=== PATIENT | female | born 1980 | race Caucasian/White ===

== ENCOUNTER → 2019-04-15 | Outpatient (CLI) | payer OTHER, SELFPAY ==
[2015-05-25 11:29] VITALS: BMI 32.5
== END | disposition home or self-care (01) ==
LOC: MFPLAB 15:33
PROVIDERS: Family Provider Family Medicine; PCP Family Medicine; Referring Provider Family Medicine; Visit Provider Family Medicine
DX: F41.9 Anxiety disorder, unspecified (principal)
CPT/HCPCS: 36415; 84443

== ENCOUNTER → 2019-04-19 | Outpatient (CLI) | payer OTHER, SELFPAY ==
[2019-04-19 15:32] LABS: T4 Free Direct 0.79 ng/dL (0.76-1.46)
[2019-04-26 10:01] LABS: Anti-Thyroglobulin AB 3.5 IU/mL (0.0-0.9); Thyroglobulin RIA 3.9 ng/mL (.); Thyroid Peroxidase AB 13 IU/mL (0-34)
== END | disposition home or self-care (01) ==
LOC: MFPLAB 13:35
PROVIDERS: Family Provider Family Medicine; PCP Family Medicine; Referring Provider Family Medicine; Visit Provider Family Medicine
DX: R79.89 Other specified abnormal findings of blood chemistry (principal)
CPT/HCPCS: 36415; 84432; 84439; 86376; 86800

== ENCOUNTER → 2019-10-01 13:45 | Outpatient (CLI) | payer OTHER, SELFPAY ==
[2019-10-01 16:30] LABS: T4 Free Direct 0.76 ng/dL (0.76-1.46); Thyroid Stim Hormone (TSH) 5.13 uIU/mL (0.358-3.74)
[2019-10-11 13:24] LABS: Anti-Thyroglobulin AB 2.3 IU/mL (0.0-0.9); Thyroglobulin RIA 11 ng/mL (.); Thyroid Peroxidase AB < 9 IU/mL (0-34)
== END ==
LOC: MFPLAB 13:46
PROVIDERS: PCP Family Medicine; Referring Provider Family Medicine; Visit Provider Family Medicine
DX: R79.89 Other specified abnormal findings of blood chemistry (principal)
CPT/HCPCS: 36415; 84432; 84439; 84443; 86376; 86800

== ENCOUNTER 2021-05-26 11:00 | Emergency (ER) | payer OTHER, SELFPAY ==
[2021-05-26 11:01] VITALS: BP 130/100; PULSE 91; RESP 18; TEMP 36.3; O2SAT 95; BMI 27.6
--- NOTE | 2021-05-26 11:31 | CT_ITS ---
STUDY: CT ABDOMEN AND PELVIS WITHOUT CONTRAST REASON FOR EXAM: Female, 40 years old. Pain RADIATION DOSAGE (If Supplied By Facility): CTDIvol = ( 10.99 ) mGy, DLP = ( 521.55 ) mGycm TECHNIQUE: Transaxial images were obtained from the dome of the diaphragm to the symphysis pubis without oral contrast, and without intravenous contrast. Sagittal and coronal images were reconstructed. Individualized dose optimization techniques were used for this CT. COMPARISON: None. FINDINGS: The lung bases demonstrate no consolidative process. No pericardial effusion. Small hiatal hernia. Hepatic steatosis. Pancreas and adrenal glands appear unremarkable. Gallbladder slightly distended. Spleen appears unremarkable. No free intraperitoneal air. No drainable fluid collections. Nonobstructive bowel gas pattern. Normal appendix. Septated cystic appearing structure in the right ovary measuring up to 5.4 cm possibly an ovarian cyst which can be assessed with follow-up sonography. Fecal loading of colonic loops in the rectum. Kidneys demonstrate no evidence for hydronephrosis Left-sided sacroiliac joint fixation on seen. No acute osseous abnormalities in the lumbar spine. Prior tubal ligation. Small amount of intraluminal gas in the urinary bladder IMPRESSION: No evidence for acute appendicitis, diverticulitis or bowel obstruction. Septated cystic appearing structure in the right ovary measuring up to 5.4 cm possibly an ovarian cyst which can be assessed with follow-up sonography. Electronically Signed: Homero Brewer MD at 13:28 EDT Tel , Service support , CT/Abdomen/Pelvis without Cont
--- NOTE | 2021-05-26 11:32 | EDS_ITS ---
HPI History of Present Illness Chief Complaint: General Illness Narrative Narrative: Patient presents with decreased appetite and nausea since Friday or Friday. She states that the last time that she was able to eat anything. She states that the thought of food is not appealing to her. When she does eat, she becomes nauseated. She has been able to drink fluids. She states she is starting a headache because she has not really eaten anything since 4 days ago. She denies any problems with bowel movements, last bowel movement was yesterday and normal. Last menstrual period was 1 week ago. She denies any dysuria or hematuria. No vaginal bleeding. No exacerbating or alleviating factors but she does states that she does not feel well and is unable to eat. [facility] Medical History (Updated 05/26/21 @ 14:41 by Percy Fernando MD) Anxiety Depression Memo's thyroiditis Home Medications bupropion HCl 150 mg PO BID 05/25/15 [History Last Taken 05/24/15 one] ferrous sulfate 325 mg PO DAILY 05/25/15 [History Last Taken 05/24/15 one] fluoxetine 20 mg PO DAILY 05/25/15 [History Last Taken 05/24/15 one] vit,[id number] [Prenatabs FA] 1 tab PO DAILY 05/25/15 [History Last Taken 05/24/15 one] Ibuprofen [Motrin] 800 mg PO TID PRN PRN #60 tab 05/26/15 [Rx Last Taken Unknown] docusate sodium [Colace] 100 mg PO BID PRN PRN #60 capsule 05/26/15 [Rx Last Taken Unknown] enoxaparin 40 mg SUBCUT DAILY #30 syringe 05/26/15 [Rx Last Taken Unknown] oxycodone-acetaminophen 1 - 2 tab PO Q6H PRN PRN #40 tab 05/26/15 [Rx Last Taken Unknown] famotidine [Pepcid] 20 mg PO DAILY #14 tab 05/26/21 [Rx Last Taken Unknown] ondansetron 4 mg PO Q8H PRN #10 tab 05/26/21 [Rx Last Taken Unknown] Allergy/AdvReac Type Severity Reaction Status Date / Time No Known Allergies Allergy Verified 05/26/21 11:01 Social History Smoking Status: Never smoker ROS ROS ED ROS Narrative Constitutional: No fever, no chills. Decreased appetite. HEENT: No sore throat. No neck pain. No loss of vision. No rhinorrhea. Cardiovascular: No chest pain. No palpitations. No pedal edema. Respiratory: No cough, no shortness of breath. Abdominal: No abdominal pain. Positive nausea. No vomiting. Genitourinary: No dysuria. No hematuria. No vaginal bleeding. Musculoskeletal: No myalgias. No arthralgias. Neurologic: No headaches. No dizziness. No lightheadedness. Skin: No rash. No change in color. Psychiatric: No depression. No anxiety. EXAM Physical Exam Narrative Exam Narrative: Afebrile. Vital signs noted. HEENT: Normocephalic. Atraumatic. PERRL, EOMI. Neck soft and supple. No point tenderness or step off. Cardiovascular: Regular rate and rhythm. No murmurs, rubs, or gallops appreciated. Respiratory: No tachypnea. Lungs clear to auscultation bilaterally. Gastrointestinal: Abdomen soft, nontender, with normoactive bowel sounds. No rebound or guarding. Minimal epigastric discomfort. Neurological: Awake. Alert. Nonfocal, nonlateralizing. Skin: No rash. Normal color. No pallor. Musculoskeletal: No pedal edema. Full range of motion extremities. Const Vital Signs: 05/26/21 11:01 05/26/21 12:00 05/26/21 13:21 Temperature 97.4 F L Temperature Source Temporal Pulse Rate 91 98 Respiratory Rate 18 16 Respiratory Effort Normal Respiratory Pattern Normal Blood Pressure 130/100 H 128/90 H Blood Pressure Mean 110 102 Pulse Ox 95 99 Oxygen Delivery Method Room Air MDM MDM MDM Narrative Medical decision making narrative: Comprehensive work-up was pursued. She will be bolused IV fluids and administered ondansetron. I will check a test along with CBC, CMP, and lipase. I will also obtain a CT of the abdomen pelvis. CBC shows normal white count of 8.7, hemoglobin 14.2. Serum is negative. CMP shows sodium slightly low at 133. Lipase is normal 167. CT the abdomen pelvis shows no acute process. Urinalysis is positive for nitrites but there are 0 WBCs. She is not having dysuria. I do not feel antibiotics are indicated, furthermore I think this would complicate things with her nausea. Upon repeat examination after a small amount of IV fluids, she feels improved. I do feel she may be mildly dehydrated with the lower sodium. She will be written prescriptions for ondansetron and 4 Pepcid. She was told to start a clear liquid diet and advance as tolerated and follow-up with a primary care provider. I feel she be discharged safely home with follow-up. Return instructions to the emergency department were reviewed. Disposition is discharged home in stable condition. Lab Data Attestation: I reviewed the patient's lab results. Labs: Laboratory Results - last 24 hr 05/26/21 05/26/21 05/26/21 11:50 11:50 11:50 WBC 8.7 RBC 4.78 Hgb 14.2 Hct 40.8 MCV 85.4 MCH 29.7 MCHC 34.8 RDW Std Deviation 36.9 RDW Coeff of Micheal 12.2 Plt Count 278 MPV 8.9 Immature Gran % (Auto) [employer] Neut % (Auto) [employer] Lymph % (Auto) [employer] Daniels % (Auto) [employer] Eos % (Auto) [employer] Baso % (Auto) [employer] Absolute Neuts (auto) 7.5 Absolute Lymphs (auto) 1.12 Total Counted 100 Neutrophils % (Manual) 85 H Band Neutrophils % 1 Lymphocytes % (Manual) 13 L Monocytes % (Manual) 1 Nucleated RBC % 0 Platelet Estimate ADEQUATE RBC Morphology NORM C+C Sodium 133 L Potassium 3.9 Chloride 93 L Carbon Dioxide 31.0 Anion Gap 9 BUN 7 Creatinine 1.06 H Estim Creat Clear Calc 59.53 Est GFR (MDRD) Af Amer 74 Est GFR (MDRD) Non-Af 61 BUN/Creatinine Ratio 6.6 L Glucose 96 Calcium 11.1 H Total Bilirubin 1.80 H AST 52 H ALT 51 Alkaline Phosphatase 105 Total Protein 8.0 Albumin 3.9 Globulin 4.1 Albumin/Globulin Ratio 1.0 Lipase 167 Serum , Qual NEGATIVE Urine Color Urine Clarity Urine pH Ur Specific Sheridan Urine Protein Urine Glucose (UA) Urine Ketones Urine Occult Blood Urine Nitrite Urine Bilirubin Urine Urobilinogen Ur Leukocyte Esterase Urine RBC Urine WBC Ur Squamous Epith Cells Urine Bacteria Urine Mucus 05/26/21 11:55 WBC RBC Hgb Hct MCV MCH MCHC RDW Std Deviation RDW Coeff of Micheal Plt Count MPV Immature Gran % (Auto) Neut % (Auto) Lymph % (Auto) Daniels % (Auto) Eos % (Auto) Baso % (Auto) Absolute Neuts (auto) Absolute Lymphs (auto) Total Counted Neutrophils % (Manual) Band Neutrophils % Lymphocytes % (Manual) Monocytes % (Manual) Nucleated RBC % Platelet Estimate RBC Morphology Sodium Potassium Chloride Carbon Dioxide Anion Gap BUN Creatinine Estim Creat Clear Calc Est GFR (MDRD) Af Amer Est GFR (MDRD) Non-Af BUN/Creatinine Ratio Glucose Calcium Total Bilirubin AST ALT Alkaline Phosphatase Total Protein Albumin Globulin Albumin/Globulin Ratio Lipase Serum , Qual Urine Color Yellow Urine Clarity Sl. Cloudy Urine pH 6.0 Ur Specific Sheridan 1.015 Urine Protein 30 H Urine Glucose (UA) Normal Urine Ketones 50 H Urine Occult Blood 25 H Urine Nitrite Positive H Urine Bilirubin Negative Urine Urobilinogen Normal Ur Leukocyte Esterase 25 H Urine RBC 0 SEEN Urine WBC 0 SEEN Ur Squamous Epith Cells 0 SEEN Urine Bacteria 3+ Urine Mucus 0 SEEN Radiography Diagnostic Testing: Clinical Impression(s) from Imaging Studies Abdomen/Pelvis CT 05/26/21 11:31 Discharge Plan Triage Chief Complaint: General Illness ED Provider: Precy Fernando Dx/Rx/DC Orders Clinical Impression: Nausea, Gastritis, Acute dehydration Instructions: ED Dehydration (Adult), ED PEPTIC ULCER vs GASTRITIS Prescriptions: New famotidine [Pepcid] 20 mg tablet 20 mg PO DAILY Qty: 14 RF: 0 ondansetron 4 mg tablet,disintegrating 4 mg PO Q8H PRN (Reason: nausea and vomiting) Qty: 10 RF: 0 No Action vit,[id number] [Prenatabs FA] 1 TABLET tablet 1 tab PO DAILY RF: 0 fluoxetine 20 MG capsule 20 mg PO DAILY RF: 0 bupropion HCl 100 MG tablet 150 mg PO BID RF: 0 ferrous sulfate 325 MG tablet 325 mg PO DAILY RF: 0 enoxaparin 40 MG/0.4 ML syringe 40 mg subcut DAILY Qty: 30 RF: 1 oxycodone-acetaminophen 1 TABLET tablet 1 - 2 tab PO Q6H PRN PRN (Reason: Pain) Qty: 40 RF: 0 docusate sodium [DOK] 100 MG capsule 100 mg PO BID PRN PRN (Reason: Constipation) Qty: 60 RF: 1 Ibuprofen [Motrin] 800 MG tablet 800 mg PO TID PRN PRN (Reason: Pain) Qty: 60 RF: 1 Primary Care Provider: NOT,DEFINED Referrals: NOT,DEFINED [Primary Care Provider] - Clinic,NOW [NON-STAFF] - 06/01/21 Disposition Disposition: Home, Self Care
[2021-05-26] MEDS: Ondansetron 4 MG/2 ML Vial IV (11:47)
[2021-05-26] MEDS: 0.9% Normal Saline 1,000 ML 1000 ML IV (11:47)
[2021-05-26 11:59] LABS: Basophil# 0.05 X10^3/uL; Eosinophil# 1.41 X10^3/uL; Hematocrit 40.8 % (37-47); Hemoglobin 14.2 g/dL (12.0-15.0); Mean Corp Hgb Conc 34.8 g/dL (32-36); Mean Corpuscular Hgb 29.7 pg (27.0-32.0); Mean Corpuscular Volume 85.4 fL (81-99); Mean Platelet Vol. 8.9 fl (6.2-12.0); Monocyte# 0.61 X10^3/uL; NRBC Flagged by Analyzer 0 % (0-5); POSITIVE MORPHOLOGY YES; Platelet Count 278 K/mm3 (150-450); RBC Distribution Width CV 12.2 % (11.6-14.6); RBC Distribution Width SD 36.9 fl (35.1-43.9); Red Blood Count 4.78 M/mm3 (4.2-5.4); White Blood Count 8.7 K/mm3 (4.4-11.0)
[2021-05-26 11:59] LABS: Mucous, Urine 0 SEEN /hpf (<or=2+); Red Blood Cells-Urine 0 SEEN /hpf (0-5); Squamous Epithelial Cells - UA 0 SEEN /hpf (5-10); White Blood Cells 0 SEEN /hpf (0-5)
[2021-05-26 12:01] LABS: Differential Indicated SCAN CRITERIA MET
[2021-05-26 12:04] LABS: Color, Urine Yellow (Yellow); Glucose, Dipstick Normal (Normal); Ketone-Dipstick 50 mg/dl (Negative); Leukocyte Esterase-Dipstick 25 /ul (Negative); Nitrite-Dipstick Positive (Negative); Occult Blood-Urine 25 /ul (Negative); Protein-Dipstick 30 mg/dl (Negative); Specific Gravity, Urine 1.015 (1.002-1.030); Urine Bilirubin Dipstick Negative (Negative); Urine Clarity Sl. Cloudy (Clear); Urine Urobilinogen Normal (Normal)
[2021-05-26 12:10] LABS: Bacteria 3+ /hpf (None Seen)
[2021-05-26 12:14] LABS: AST(SGOT) 52 U/L (15-37); Alanine Aminotransfer ALT/SGPT 51 U/L (13-56); Albumin, Serum 3.9 g/dL (3.2-5.0); Alkaline Phosphatase 105 U/L (45-117); Anion Gap 9 (5-15); BUN 7 mg/dL (7-18); BUN/Creat Ratio 6.6 RATIO (10-20); Calcium,Total 11.1 mg/dL (8.5-10.1); Chloride 93 mmol/L (98-107); Creatinine, Serum 1.06 mg/dL (0.55-1.02); EST Glomerular Filtration Rate 61 mL/min (>60); Est Glom Filt Rate - Afr Amer 74 mL/min (>60); Estimated Creatinine Clearance 59.53 ml/min; Globulin 4.1 g/dL (2.2-4.2); Glucose 96 mg/dL (74-106); Lipase 167 U/L (73-393); Potassium 3.9 mmol/L (3.5-5.1); Sodium Level 133 mmol/L (136-145)
[2021-05-26 12:19] LABS: Internal QC Validated? YES +Cl - CLEAR BKGD; Pregnancy, Serum, hCG Quali. NEGATIVE Negative
[2021-05-26 12:20] LABS: Lymphocyte 13 % (19-41); Monocyte 1 % (0-10); Neutrophil-Band 1 % (0-5); Neutrophil-Segmented 85 % (47-70); Total Cells Counted 100 (MANUAL DIFF)
[2021-05-26 12:21] LABS: Platelet Estimate ADEQUATE (ADEQ); Red Cell Morphology NORM C+C NORMAL (NORM C&C); Scan Smear per Review Criteria MANUAL DIFF
[2021-05-26 12:22] LABS: Absolute Lymphocyte Count 1.12 X10^3/uL (0.83-4.51); Absolute Neutrophil Count 7.5 X10^3/uL (2.0-7.7); Lymphocyte # 1.12 X10^3/ul (0.83-4.51); Neutrophil # 7.48 X10^3/uL (2.7-7.7)
[2021-05-26 13:21] VITALS: BP 128/90; PULSE 98; RESP 16; O2SAT 99
== END 2021-05-26 14:58 | disposition home or self-care (01) ==
PROVIDERS: Emergency Provider Emergency Medicine
DX: K29.70 Gastritis, unspecified, without bleeding (principal); E86.0 Dehydration
CPT/HCPCS: 74176; 80053; 81001; 83690; 84703; 85025; 96361; 96374; 99283; J7030; J2405

== ENCOUNTER 2021-07-04 17:23 | Emergency (ER) | payer OTHER, SELFPAY ==
[2021-07-04 17:24] VITALS: BP 134/60; PULSE 87; RESP 16; TEMP 36.4; O2SAT 96; BMI 27.1
--- NOTE | 2021-07-04 18:07 | EDS_ITS ---
HPI History of Present Illness Chief Complaint: General Illness Informant: patient Onset/Context/Timing Onset: Days Context: Gradual Onset Timing: Continuous Current Severity: Mild Maximum Severity: Mild Narrative Narrative: 41-year-old female history of Memo's thyroiditis. URI symptoms for 2 to 3 days. Associated nausea vomiting. Cough of greenish phlegm. Nausea and vomiting and mild diarrhea. No fever. No shortness of breath. She has not been vaccinated against Covid. Members at home have similar symptoms. Prior similar symptoms: Yes Recent Illness/Hospitalization: No PFSH PFSH Medical History Anxiety Depression Memo's thyroiditis Home Medications alprazolam 1 mg PO DAILY PRN 07/04/21 [History Last Taken Unknown] bupropion HCl 300 mg PO DAILY 07/04/21 [History Last Taken Unknown] sertraline 100 mg PO DAILY 07/04/21 [History Last Taken Unknown] Allergy/AdvReac Type Severity Reaction Status Date / Time No Known Allergies Allergy Verified 07/04/21 17:26 Social History Smoking Status: Never smoker ROS ROS ED ROS Narrative Cough, nausea, vomiting and diarrhea. Review of Systems ROS Unobtainable: Denies due to encephalopathy Constitutional Constitutional ED: Denies fever(s) Eyes Eyes: Denies change in vision ENT ENT ED: Reports sore throat; Denies ear pain Cardiovascular Cardiovascular: Denies chest pain Respiratory/Chest Respiratory/Chest: Reports cough; Denies dyspnea Gastrointestinal Gastrointestinal: Reports diarrhea, nausea and vomiting; Denies abdominal pain Genitourinary Genitourinary ED: Denies dysuria Musculoskeletal Musculoskeletal: Reports myalgias Integumentary Denies rash Neurologic Neurologic: Denies headache(s) Psychiatric Psychiatric: Denies depression Endocrine Endocrinology: Denies polyuria Allergic/Immunologic Allergic/Immunologic ED: Denies urticaria EXAM Physical Exam Narrative Exam Narrative: 11-year-old female no acute distress vital signs stable afebrile. Pulse ox 96% on room air no signs hypoxia. Patient does not look septic or toxic. HEENT exam unremarkable. Moist mucous membranes. Posterior pharynx unremarkable. No trouble swallowing or breathing. Neck nontender no lymphadenopathy. Lungs clear to auscultation bilaterally. Heart regular rhythm rate about 90 no murmur. Abdomen soft nontender normal bowel sounds no peritoneal signs. No distention or signs of obstruction. Moving all 4 extremities. Nontender no edema. Back nontender. Neurologically awake and alert with no focal motor deficits. Const Vital Signs: 07/04/21 17:24 07/04/21 18:09 Temperature 97.5 F L Temperature Source Temporal Pulse Rate 87 Respiratory Rate 16 Respiratory Effort Normal Non-Labored Respiratory Pattern Normal Blood Pressure 134/60 H Blood Pressure Mean 84 Pulse Ox 96 Oxygen Delivery Method Room Air Positive well nourished and well developed; Negative for obese, cachectic, contractures or unkempt General Appearance ED: well developed and NAD; Negative for unkempt, cachectic, contractures, cyanotic, diaphoretic or pallor Nutritional Appearance: Negative for cachectic or obese HEENT Reports moist mucous membranes Negative for trauma or tenderness Eyes PERRL and EOMs intact bilaterally General Eye ED: Negative for pale conjunctiva or scleral icterus Neck no lymphadenopathy, supple and no JVD General: Negative for tenderness Chest Wall inspection of chest normal and palpation of chest normal Resp normal respiratory effort and clear to auscultation bilaterally Effort and Inspection: Negative for pain with movement Auscultation: Negative for rales, rhonchi or wheezes Cardio regular rate, regular rhythm, S1 normal heart sound, S2 normal heart sound and no murmurs GI normal to inspection, nondistended, normoactive bowel sounds, non-tender, non- distended and no masses Inspection: Negative for abdominal distention Auscultation: normoactive bowel sounds Palpation: soft; Negative for tender, guarding or rebound tenderness present Back/Spine no CVA tenderness General Back: Negative for CVA tenderness Extremity normal to inspection General Extremety ED: Negative for edema or tenderness General Extremity: Negative for edema Neuro oriented x3 and CN's II-XII intact bilaterally Sensorium / Orientation: alert; Negative for lethargic or stuporous Motor Exam: strength 5/5 throughout Psych mental status grossly normal Appearance: Negative for unkempt Attitude: No agitated Mood & Affect: Negative for depressed, anxious or tearful Skin no rashes or lesions noted, no wounds and No skin turgor normal General Skin Exam: Negative for elasticity normal, jaundice or pallor MDM MDM MDM Narrative Medical decision making narrative: Patient with URI symptoms. Chest x-ray and Covid testing being obtained. Given IV Zofran for nausea and IV fluids. Her chest x-ray and Covid test are both negative. She will be discharged home with a viral syndrome. Zofran as needed for nausea. Repeat exam patient is doing well at 8:15 PM. Follow-up with proving return if worse. Lab Data Attestation: I reviewed the patient's lab results. Lab results narrative: Covid test is negative. Radiography Chest X-Ray - ED: 1 View, Read by ED Physician, Heart, Lungs, Mediastinum, Bony Structures and No Acute Disease Diagnostic Testing: Clinical Impression(s) from Imaging Studies Chest X-Ray 07/04/21 19:00 IMPRESSION: Normal x-ray examination of the chest. Electronically Signed: Adolfo Walters MD at 19:20 EST Tel , Service support , Chest x-ray, portable, single view interpreted by myself shows no acute abnormality. Normal cardiac silhouette, mediastinum and lung matthews. No infiltrates. Discharge Plan Triage Chief Complaint: General Illness ED Provider: Ramón Galvan Dx/Rx/DC Orders Clinical Impression: Acute viral syndrome Instructions: ED Viral Syndrome (Adult) Prescriptions: No Action alprazolam 1 mg tablet 1 mg PO DAILY PRN (Reason: Anxiety) RF: 0 sertraline 100 mg tablet 100 mg PO DAILY RF: 0 bupropion HCl 300 mg tablet extended release 24 hr 300 mg PO DAILY RF: 0 Primary Care Provider: Care Physician,No Primary Referrals: Anna Cabrera MD [STAFF PHYSICIAN] - 3-5 Days if not improving Care Physician,No Primary [Primary Care Provider] - Activity Restrictions/Additional Instructions: Plenty of fluids and rest. Increase diet slowly as tolerated. Zofran as needed for nausea. Follow-up if not improving or return if worse. Disposition Disposition: Home, Self Care
[2021-07-04] MEDS: Ondansetron 4 MG/2 ML Vial IV (18:48)
[2021-07-04] MEDS: 0.9% Normal Saline 1,000 ML 1000 ML IV (18:48)
--- NOTE | 2021-07-04 19:00 | RAD_ITS ---
STUDY: X-RAY CHEST REASON FOR EXAM: Female, 41 years old. cough nausea vomiting for 2 days TECHNIQUE: Frontal portable view of the chest COMPARISON: None. FINDINGS: The lungs are clear and expanded. There is no demonstrated pleural abnormality. Normal size heart. Normal mediastinum and millicent. Normal visualized pulmonary arteries. Normal visualized aortic arch and descending thoracic aorta. Normal visualized thoracic spine. Normal visualized ribs, clavicles, and shoulders. There is no demonstrated abnormality of the visualized soft tissue structures of the upper abdomen. RAD/Chest 1 View (Portable) IMPRESSION: Normal x-ray examination of the chest. Electronically Signed: Adolfo Walters MD at 19:20 EST Tel , Service support ,
[2021-07-04 20:24] VITALS: BP 130/74; PULSE 88; RESP 19; O2SAT 98
== END 2021-07-04 20:26 | disposition home or self-care (01) ==
PROVIDERS: Emergency Provider Emergency Medicine
DX: B34.9 Viral infection, unspecified (principal); F32.A Depression, unspecified; F41.9 Anxiety disorder, unspecified; Z79.899 Other long term (current) drug therapy
CPT/HCPCS: 71045; 87426; 96374; 99284; J7030; J2405

== ENCOUNTER 2021-12-28 18:39 | Emergency (ER) | payer OTHER, SELFPAY ==
[2021-12-28 18:40] VITALS: BP 133/75; PULSE 98; RESP 18; TEMP 36.7; O2SAT 95; BMI 25.6
[2021-12-28] MEDS: Metoclopramide 10 MG/2 ML Vial IV (19:45)
[2021-12-28] MEDS: 0.9% Normal Saline 1,000 ML 1000 ML IV (19:45)
--- NOTE | 2021-12-28 19:45 | EDS_ITS ---
HPI HPI - GI History of Present Illness Chief Complaint: Abd Pain Informant: patient Nausea/Vomiting/Emesis GI Symptom: Positive for Nausea and Vomiting Onset: Days (3) Quality: Positive for Nonbilious; Negative for Blood streaks, Coffee ground and Hematemesis Severity: Severe Diarrhea/Melena/Hematochezia GI Symptom: Positive for - (States having normal bowel movements); Negative for Diarrhea, Melena and Hematochezia Associated Symptoms Associated Symptoms: Negative for Dysuria, Frequency, Hematuria and Urgency Narrative Narrative: Patient has had nausea and vomiting for multiple days, she denies any abdominal pain, fevers or chills, or diarrhea. No hematemesis or melena or bright red blood per rectum. States she has had this before and it has self resolved. She was at urgent care prior to being sent here, she received Zofran and states it did not help. She has had a prior tubal, she does not recall her last menstrual cycle but denies being that she knows of. She denies any back or chest pain. [facility] Medical History (Updated 12/28/21 @ 22:[address] Kendall Bell MD) Anxiety Depression Memo's thyroiditis Home Medications alprazolam 1 mg PO DAILY PRN 07/04/21 [History Last Taken Unknown] bupropion HCl 300 mg PO DAILY 07/04/21 [History Last Taken Unknown] ondansetron 4 mg PO Q8H PRN 2 Days #7 tab MDD vomiting 07/04/21 [Rx Last Taken Unknown] potassium chloride 20 meq PO BID #6 tab 12/28/21 [Rx Last Taken Unknown] promethazine 25 mg PO Q6H PRN PRN #10 tablet 12/28/21 [Rx Last Taken Unknown] sulfamethoxazole-trimethoprim 1 tab PO BID #6 tablet 12/28/21 [Rx Last Taken Unknown] Allergy/AdvReac Type Severity Reaction Status Date / Time No Known Allergies Allergy Verified 12/28/21 18:40 Surgical History (Updated 12/28/21 @ 19:[address] Kendall Bell MD) H/O tubal ligation Social History Smoking Status: Never smoker ROS ROS ED Constitutional Constitutional ED: Denies chills or fever(s) Eyes Eyes: Denies change in vision or diplopia ENT ENT ED: Denies rhinorrhea or sore throat Cardiovascular Cardiovascular: Denies chest pain or palpitations Respiratory/Chest Respiratory/Chest: Denies cough or dyspnea Gastrointestinal Gastrointestinal: Reports nausea and vomiting; Denies abdominal pain or diarrhea Genitourinary Genitourinary ED: Denies dysuria or hematuria Musculoskeletal Musculoskeletal: Denies back pain or neck pain Integumentary Denies abscess or rash Neurologic Neurologic: Denies headache(s), paresthesias or weakness Psychiatric Psychiatric: Denies anxiety or suicidal thoughts EXAM Physical Exam Const Vital Signs: 12/28/21 18:40 Temperature 98.1 F Temperature Source Temporal Pulse Rate 98 Respiratory Rate 18 Blood Pressure 133/75 H Blood Pressure Mean 94 Pulse Ox 95 Oxygen Delivery Method Room Air Positive well nourished and well developed Constitutional Narrative: Uncomfortable hunched over on her elbows and knees with an emesis bag on the bed General Appearance ED: well developed and NAD HEENT Reports moist mucous membranes normocephalic and atraumatic Eyes PERRL and EOMs intact bilaterally Neck full ROM and supple Resp normal respiratory effort and clear to auscultation bilaterally Cardio regular rate, regular rhythm and no murmurs Rate: Negative for tachycardic GI non-tender and non-distended Auscultation: normoactive bowel sounds Palpation: soft Back/Spine no CVA tenderness General Back: other FROM Extremity normal to inspection General Extremety ED: Negative for edema, pulses abnormal or tenderness General Extremity: Negative for edema or pulses abnormal Neuro oriented x3, CN's II-XII intact bilaterally and no sensory deficits noted Sensorium / Orientation: awake and alert Motor Exam: strength 5/5 throughout Skin no rashes or lesions noted and no wounds MDM MDM MDM Narrative Medical decision making narrative: Other than slightly elevated bilirubin and slightly low potassium the patient's work-up is unremarkable. Her is negative, and her urinalysis shows some signs of infection with bacteriuria. I will send this for culture and treat her with 3 days of Bactrim, she does not have urinary symptoms but it was pretty cloudy and unknown if it is causing her vomiting or not. We gave her some IV potassium here, initially she received Zofran from the urgent care which did not help so we gave her IV Reglan and she stated that she was still very nauseated. She has never been diagnosed with cyclic vomiting syndrome but she is on mental health medications, treated her with Thorazine which I frequently use with cyclic vomiting, and it helped her quite a bit. This is not stating that she has cyclic vomiting. I will treat her symptomatically with prescription for promethazine, some potassium, and the Bactrim and she is advised to follow-up she is comfortable with that plan. Lab Data Attestation: I reviewed the patient's lab results. Labs: Laboratory Results - last 24 hr 12/28/21 12/28/21 12/28/21 19:45 19:45 19:45 WBC 4.2 L RBC 5.23 Hgb 14.5 Hct 42.9 MCV 82.0 MCH 27.7 MCHC 33.8 RDW Std Deviation 45.5 H RDW Coeff of Micheal 15.4 H Plt Count 330 MPV 10.7 Immature Gran % (Auto) 0.500 Neut % (Auto) 66.6 Lymph % (Auto) 24.8 [place] % (Auto) 7.6 Eos % (Auto) 0.0 Baso % (Auto) 0.5 Absolute Neuts (auto) 2.8 Absolute Lymphs (auto) 1.04 Nucleated RBC % 0 Sodium 138 Potassium 3.3 L Chloride 98 Carbon Dioxide 25.0 Anion Gap 15 BUN 12 Creatinine 1.01 Estim Creat Clear Calc 61.86 Est GFR (MDRD) Af Amer 78 Est GFR (MDRD) Non-Af 65 BUN/Creatinine Ratio 11.9 Glucose 88 Calcium 9.6 Total Bilirubin 1.30 H AST 34 ALT 43 Alkaline Phosphatase 87 Total Protein 8.2 Albumin 4.1 Globulin 4.1 Albumin/Globulin Ratio 1.0 Serum , Qual NEGATIVE Urine Color Urine Clarity Urine pH Ur Specific [place] Urine Protein Urine Glucose (UA) Urine Ketones Urine Occult Blood Urine Nitrite Urine Bilirubin Urine Urobilinogen Ur Leukocyte Esterase Urine RBC Urine WBC Ur Squamous Epith Cells Amorphous Sediment Urine Bacteria Urine Mucus 12/28/21 20:20 WBC RBC Hgb Hct MCV MCH MCHC RDW Std Deviation RDW Coeff of Micheal Plt Count MPV Immature Gran % (Auto) Neut % (Auto) Lymph % (Auto) [place] % (Auto) Eos % (Auto) Baso % (Auto) Absolute Neuts (auto) Absolute Lymphs (auto) Nucleated RBC % Sodium Potassium Chloride Carbon Dioxide Anion Gap BUN Creatinine Estim Creat Clear Calc Est GFR (MDRD) Af Amer Est GFR (MDRD) Non-Af BUN/Creatinine Ratio Glucose Calcium Total Bilirubin AST ALT Alkaline Phosphatase Total Protein Albumin Globulin Albumin/Globulin Ratio Serum , Qual Urine Color Yellow Urine Clarity Cloudy Urine pH 6.0 Ur Specific [place] 1.025 Urine Protein 30 H Urine Glucose (UA) Normal Urine Ketones 150 A* Urine Occult Blood 25 H Urine Nitrite Negative Urine Bilirubin 1 H Urine Urobilinogen 1 H Ur Leukocyte Esterase 100 H Urine RBC 0-5 SEEN Urine WBC 10-25 SEEN Ur Squamous Epith Cells 0-5 SEEN Amorphous Sediment 2+ URATE Urine Bacteria 3+ Urine Mucus 0 SEEN Discharge Plan Triage Chief Complaint: Abd Pain ED Provider: Kendall Bell Dx/Rx/DC Orders Clinical Impression: Vomiting, Hypokalemia due to excessive gastrointestinal loss of potassium, UTI (urinary tract infection) Instructions: ED Hypokalemia, ED Vomiting (Adult) Prescriptions: New sulfamethoxazole-trimethoprim [sulfamethoxazole-trimethoprim] 1 TABLET tablet 1 tab PO BID Qty: 6 RF: 0 promethazine [promethazine] 25 MG tablet 25 mg PO Q6H PRN PRN (Reason: Nausea) Qty: 10 RF: 0 potassium chloride 20 mEq tablet extended release 20 meq PO BID Qty: 6 RF: 0 No Action alprazolam 1 mg tablet 1 mg PO DAILY PRN (Reason: Anxiety) RF: 0 bupropion HCl 300 mg tablet extended release 24 hr 300 mg PO DAILY RF: 0 ondansetron 4 mg tablet,disintegrating 4 mg PO Q8H MDD vomiting PRN (Reason: nausea and vomiting) 2 Days Qty: 7 RF: 0 Primary Care Provider: Care Physician,No Primary Referrals: Sheron Villalba MD [STAFF PHYSICIAN] - 3-5 Days if not improving Care Physician,No Primary [Primary Care Provider] - Activity Restrictions/Additional Instructions: Your urine appeared to possibly be infected, we sent it for a culture, take the antibiotics and follow-up with your doctor for the results and reevaluation. Disposition Disposition: Home, Self Care
[2021-12-28 19:52] LABS: Absolute Lymphocyte Count 1.04 X10^3/uL (0.83-4.51); Absolute Neutrophil Count 2.8 X10^3/uL (2.0-7.7); Basophil# 0.02 X10^3/uL; Basophil% 0.5 % (0-1); Hematocrit 42.9 % (37-47); Hemoglobin 14.5 g/dL (12.0-15.0); Lymphocyte # 1.04 X10^3/ul (0.83-4.51); Lymphocyte % 24.8 % (19-41); Mean Corp Hgb Conc 33.8 g/dL (32-36); Mean Corpuscular Hgb 27.7 pg (27.0-32.0); Mean Platelet Vol. 10.7 fl (6.2-12.0); Monocyte# 0.32 X10^3/uL; Monocyte% 7.6 % (0-10); NRBC Flagged by Analyzer 0 % (0-5); Neutrophil # 2.79 X10^3/uL (2.7-7.7); Neutrophil % 66.6 % (47-70); Platelet Count 330 K/mm3 (150-450); RBC Distribution Width CV 15.4 % (11.6-14.6); RBC Distribution Width SD 45.5 fl (35.1-43.9); Red Blood Count 5.23 M/mm3 (4.2-5.4); White Blood Count 4.2 K/mm3 (4.4-11.0)
[2021-12-28 20:15] LABS: Internal QC Validated? YES +Cl - CLEAR BKGD; Pregnancy, Serum, hCG Quali. NEGATIVE Negative
[2021-12-28 20:19] LABS: AST(SGOT) 34 U/L (15-37); Alanine Aminotransfer ALT/SGPT 43 U/L (13-56); Albumin, Serum 4.1 g/dL (3.2-5.0); Alkaline Phosphatase 87 U/L (45-117); Anion Gap 15 (5-15); BUN 12 mg/dL (7-18); BUN/Creat Ratio 11.9 RATIO (10-20); Calcium,Total 9.6 mg/dL (8.5-10.1); Chloride 98 mmol/L (98-107); Creatinine, Serum 1.01 mg/dL (0.55-1.02); EST Glomerular Filtration Rate 65 mL/min (>60); Est Glom Filt Rate - Afr Amer 78 mL/min (>60); Estimated Creatinine Clearance 61.86 ml/min; Globulin 4.1 g/dL (2.2-4.2); Glucose 88 mg/dL (74-106); Potassium 3.3 mmol/L (3.5-5.1); Protein, Total 8.2 g/dL (6.4-8.2); Sodium Level 138 mmol/L (136-145)
[2021-12-28 20:34] LABS: Mucous, Urine 0 SEEN /hpf (<or=2+)
[2021-12-28] MEDS: ChlorproMAZINE 50 MG/2 ML Ampul 12.5 MG IV (20:52)
[2021-12-28] MEDS: Potassium Chloride 10mEq/100mL 10 MEQ/100 ML IV.SOLN. 100 MEQ IV BOLUS (20:52)
[2021-12-28 20:57] LABS: Color, Urine Yellow (Yellow); Glucose, Dipstick Normal (Normal); Leukocyte Esterase-Dipstick 100 /ul (Negative); Nitrite-Dipstick Negative (Negative); Occult Blood-Urine 25 /ul (Negative); Protein-Dipstick 30 mg/dl (Negative); Specific Gravity, Urine 1.025 (1.002-1.030); Urine Clarity Cloudy (Clear); Urine Urobilinogen 1 mg/dl (Normal)
[2021-12-28 21:17] LABS: Urine Bilirubin Dipstick 1 mg/dL (Negative)
[2021-12-28 21:19] LABS: Ketone-Dipstick 150 mg/dl (Negative)
[2021-12-28 21:20] LABS: Bacteria 3+ /hpf (None Seen); Red Blood Cells-Urine 0-5 SEEN /hpf (0-5); Squamous Epithelial Cells - UA 0-5 SEEN /hpf (5-10); White Blood Cells 10-25 SEEN /hpf (0-5)
[2021-12-28 21:21] LABS: Amorphous Sediment 2+ URATE
[2021-12-28] MEDS: Ondansetron 4 MG/2 ML Vial IV (22:39)
[2021-12-28] MEDS: Smz/Tmp Ds Tablet 1 TABLET PO (22:39)
== END 2021-12-28 22:50 | disposition home or self-care (01) ==
PROVIDERS: Emergency Provider Emergency Medicine; Visit Provider Emergency Medicine
DX: R11.2 Nausea with vomiting, unspecified (principal); E87.6 Hypokalemia; N39.0 Urinary tract infection, site not specified; F41.9 Anxiety disorder, unspecified; F32.A Depression, unspecified
CPT/HCPCS: 80053; 81001; 84703; 85025; 87077; 87086; 87088; 87186; 96361; 96365; 96375; 99284; J7030; J7050; A4216; J2405

== ENCOUNTER 2021-12-31 08:59 | Emergency (ER) | payer OTHER, SELFPAY ==
[2021-12-31 08:59] VITALS: BP 131/95; PULSE 91; RESP 16; TEMP 36.4; O2SAT 100; BMI 25.7
--- NOTE | 2021-12-31 09:47 | EKG12_ITS ---
Test Reason : SOB Blood Pressure : / mmHG Vent. Rate : 076 BPM Atrial Rate : 076 BPM P-R Int : 164 ms QRS Dur : 084 ms QT Int : 400 ms P-R-T Axes : 061 047 052 degrees QTc Int : 450 ms Normal sinus rhythm Nonspecific T wave abnormality Abnormal ECG Confirmed by KIM ROSADO, NATTY ([id number]), clinical editor KAREN JOEL ([id number]) on 01/02/2022 1:20:40 PM Referred By: LEONARDO Confirmed By:NATTY ALVAREZ MD
--- NOTE | 2021-12-31 09:47 | RAD_ITS ---
INDICATION: chest pain EXAMINATION/TECHNIQUE: X-RAY - XR Chest 1 View COMPARISON: Chest radiograph from the 2020. FINDINGS: LINES/DEVICES: None. LUNGS: No focal consolidations, effusions, or sizable pneumothorax. MEDIASTINUM AND CARDIOVASCULAR STRUCTURES: Cardiomediastinal silhouette is within normal limits. BONES AND SOFT TISSUES: No acute findings. RAD/Chest 1 View (Portable) IMPRESSION: No acute findings. Stable exam since 10/04/2020. Electronically Signed: Octavio Newton, at 10:13 EDT ,
--- NOTE | 2021-12-31 09:49 | EDS_ITS ---
HPI History of Present Illness Chief Complaint: Nausea/Vomiting Informant: patient Narrative Narrative: Patient is a 41-year-old female with history of anxiety presenting for recurrent nausea, vomiting and now shortness of breath palpitations. She states over the past year every few months she gets episodes of bad nausea and vomiting. Symptoms started 4 to 5 days ago. Initially she went to urgent care was given a prescription for Zofran. She not feel like it was helping and then she went to our emergency room 3 days ago. At that time she was diagnosed with a urinary tract infection and hypokalemia. Looks like patient was treated with Thorazine and had improvement of her symptoms. Patient was prescribed Phenergan, oral potassium and Bactrim. Patient states has not been able to tolerate any of the medications because she continues to vomit. She also notes that she is now developing worsening dyspnea on exertion and racing heart. Symptoms are better at rest. She also is having low back pain secondary to all of the vomiting. She denies any black or blood in her vomit. States her last bowel movement was 3 days ago which is normal for her. She continues to pass gas. She denies any diarrhea or black or blood in her stool. She denies any fever but states that her skin sometimes feels hot. She notes that she has burning with taking a deep breath. Patient does report a history of pulmonary emboli after surgery. She states that she had tubal ligation and 5 C-sections as well as a pelvic plate. She states she had a normal D-dimer with outpatient blood work with her PCP a couple weeks ago. Denies any sick contacts. No other complaints at this time. [facility] Medical History Anxiety Depression Memo's thyroiditis Home Medications alprazolam 1 mg PO DAILY PRN 07/04/21 [History Last Taken Unknown] bupropion HCl 300 mg PO DAILY 07/04/21 [History Last Taken Unknown] ondansetron 4 mg PO Q8H PRN 2 Days #7 tab MDD vomiting 07/04/21 [Rx Last Taken Unknown] potassium chloride 20 meq PO BID #6 tab 12/28/21 [Rx Last Taken Unknown] promethazine 25 mg PO Q6H PRN PRN #10 tablet 12/28/21 [Rx Last Taken Unknown] sulfamethoxazole-trimethoprim 1 tab PO BID #6 tablet 12/28/21 [Rx Last Taken Unknown] polyethylene glycol 3350 [Miralax] 17 g PO DAILY #30 ea 12/31/21 [Rx Last Taken Unknown] prochlorperazine maleate [Compazine] 10 mg PO Q6H PRN #14 tab 12/31/21 [Rx Last Taken Unknown] promethazine 25 mg ND Q6H PRN #12 ea 12/31/21 [Rx Last Taken Unknown] Allergy/AdvReac Type Severity Reaction Status Date / Time No Known Allergies Allergy Verified 12/28/21 18:40 Surgical History H/O tubal ligation Social History Smoking Status: Never smoker ROS ROS ED Constitutional Constitutional ED: Denies chills or fever(s) Eyes Eyes: Denies change in vision ENT ENT ED: Reports sore throat Cardiovascular Cardiovascular: Reports palpitations; Denies chest pain Respiratory/Chest Respiratory/Chest: Reports dyspnea on exertion; Denies cough or dyspnea Gastrointestinal Gastrointestinal: Reports nausea and vomiting; Denies abdominal pain, constipation or diarrhea Genitourinary Genitourinary ED: Denies dysuria, hematuria or urinary frequency Musculoskeletal Musculoskeletal: Denies arthralgias or myalgias Integumentary Denies rash Neurologic Neurologic: Denies headache(s) or weakness Psychiatric Psychiatric: Denies depression EXAM Physical Exam Const Vital Signs: 12/31/21 08:59 12/31/21 11:00 12/31/21 15:36 Temperature 97.6 F L Temperature Source Temporal Pulse Rate 91 99 73 Respiratory Rate 16 17 16 Blood Pressure 131/95 H 112/78 147/85 H Blood Pressure Mean 107 89 105 Pulse Ox 100 100 99 Oxygen Delivery Method Room Air Room Air Room Air Positive well nourished and well developed General Appearance ED: well developed and NAD HEENT Reports moist mucous membranes Negative for tenderness Eyes EOMs intact bilaterally Neck supple and no JVD Neck Narrative: Normal range of motion Chest Wall inspection of chest normal Resp normal respiratory effort and clear to auscultation bilaterally Cardio regular rate, regular rhythm and no murmurs GI normal to inspection, nondistended, normoactive bowel sounds and non-tender Palpation: soft Back/Spine no CVA tenderness Extremity normal to inspection Neuro oriented x3 Sensorium / Orientation: alert Motor Exam: Negative for general weakness Psych mental status grossly normal Skin no rashes or lesions noted and no wounds MDM MDM MDM Narrative Medical decision making narrative: Patient is evaluated for continued nausea and vomiting. She was seen in the ER 3 days ago prescribed Phenergan and Bactrim after failing Zofran. She states she has been able to keep anything down and has not been able to keep her antibiotics down. Denies any significant abdominal pain. Patient initially is given IV Zofran and Ativan for symptom control with only minimal improvement. She does tell me that she has some chest discomfort palpitations and dyspnea on exertion. D-dimer is added on as well as a troponin. Her high since opponent is negative. Her D-dimer is normal and I do not suspect a PE. Urinalysis is repeated does continue to show rare bacteria and leukocyte esterase. Chest x-ray interpreted by myself as well as radiology does not show any acute process. CT of the abdomen pelvis obtained as patient does have a history of abdominal surgeries with nausea, vomiting and constipation. No obstruction however there is a questionable finding of intussusception. This was discussed with the surgeon on-call, Dr. Agudelo, who recommends repeating the CT with oral contrast. Patient was also given a GI cocktail, IV Pepcid and then Compazine. This is performed the patient is able to tolerate the oral contrast. Her nausea and vomiting seem to be doing better. CT with oral contrast no longer shows any intussusception or any other acute process. Patient be discharged home with a prescription for Compazine as well as Phenergan suppositories. Patient will continue to take the Bactrim prescribed. She is also given a prescription for MiraLAX to help with constipation. Patient counseled return precautions. She verbalizes agreement with this plan. Lab Data Attestation: I reviewed the patient's lab results. Labs: Laboratory Results - last 24 hr 12/31/21 12/31/21 12/31/21 09:26 09:26 10:10 WBC 8.6 RBC 5.26 Hgb 14.6 Hct 42.7 MCV 81.2 MCH 27.8 MCHC 34.2 RDW Std Deviation 44.8 H RDW Coeff of Micheal 15.8 H Plt Count 290 MPV 11.0 Immature Gran % (Auto) 0.400 Neut % (Auto) 75.4 H Lymph % (Auto) 15.6 L [place] % (Auto) 8.5 Eos % (Auto) 0.0 Baso % (Auto) 0.1 Absolute Neuts (auto) 6.5 Absolute Lymphs (auto) 1.33 Nucleated RBC % 0 D-Dimer Quant (PE/DVT) 0.35 Sodium 134 L Potassium 3.5 Chloride 102 Carbon Dioxide 14.0 L Anion Gap 18 H BUN 6 L Creatinine 1.02 Estim Creat Clear Calc 61.25 Est GFR (MDRD) Af Amer 77 Est GFR (MDRD) Non-Af 64 BUN/Creatinine Ratio 5.9 L Glucose 86 Calcium 10.2 H Total Bilirubin 1.20 H AST 26 ALT 31 Alkaline Phosphatase 75 Troponin I High Sens < 3 L Total Protein 8.1 Albumin 4.0 Globulin 4.1 Albumin/Globulin Ratio 1.0 Lipase 335 Urine Color Urine Clarity Urine pH Ur Specific [place] Urine Protein Urine Glucose (UA) Urine Ketones Urine Occult Blood Urine Nitrite Urine Bilirubin Urine Urobilinogen Ur Leukocyte Esterase Urine RBC Urine WBC Ur Squamous Epith Cells Urine Bacteria Urine Mucus Urine Test 12/31/21 12/31/21 11:04 11:04 WBC RBC Hgb Hct MCV MCH MCHC RDW Std Deviation RDW Coeff of Micheal Plt Count MPV Immature Gran % (Auto) Neut % (Auto) Lymph % (Auto) [place] % (Auto) Eos % (Auto) Baso % (Auto) Absolute Neuts (auto) Absolute Lymphs (auto) Nucleated RBC % D-Dimer Quant (PE/DVT) Sodium Potassium Chloride Carbon Dioxide Anion Gap BUN Creatinine Estim Creat Clear Calc Est GFR (MDRD) Af Amer Est GFR (MDRD) Non-Af BUN/Creatinine Ratio Glucose Calcium Total Bilirubin AST ALT Alkaline Phosphatase Troponin I High Sens Total Protein Albumin Globulin Albumin/Globulin Ratio Lipase Urine Color Yellow Urine Clarity Clear Urine pH 6.0 Ur Specific [place] 1.020 Urine Protein 30 H Urine Glucose (UA) Normal Urine Ketones 150 A* Urine Occult Blood 10 H Urine Nitrite Negative Urine Bilirubin Negative Urine Urobilinogen Normal Ur Leukocyte Esterase 25 H Urine RBC 0 SEEN Urine WBC 0-5 SEEN Ur Squamous Epith Cells 0-5 SEEN Urine Bacteria RARE Urine Mucus 0 SEEN Urine Test Negative Radiography Diagnostic Testing: Clinical Impression(s) from Imaging Studies Chest X-Ray 12/31/21 09:47 IMPRESSION: No acute findings. Stable exam since 10/04/2020. Electronically Signed: Octavio Newton, at 10:13 EDT , Abdomen/Pelvis CT 12/31/21 11:25 IMPRESSION: 1. Small enteroenteric intussusception in the left lower quadrant small bowel which is typically a transient and benign finding. 2. Constipation. No bowel obstruction. 3. Hepatic steatosis. 4. Cholelithiasis. No CT findings of acute cholecystitis. Electronically Signed: Octavio Newton, at 12:22 EDT , Abdomen CT 12/31/21 13:22 IMPRESSION: NO bowel obstruction or intussusception on the current exam. Electronically Signed: Kaiden Patel MD ([place]) at 16:14 EDT , Rhythm Strip Rhythm Strip: Sinus Rhythm Rate: 76 Ectopy: None EKG Initial EKG: Attestation: I personally reviewed and interpreted this EKG as follows: Interpretation: Sinus Rhythm Comments: Normal sinus rhythm at a rate of 76 Normal axis Normal intervals Normal ST segments Nonspecific T wave inversion in V1 and V2 which could be normal variant Discharge Plan Triage Chief Complaint: Nausea/Vomiting ED Provider: Manjula Cole Dx/Rx/DC Orders Clinical Impression: Vomiting, UTI (urinary tract infection), Constipation Instructions: ED Vomiting (Adult) Prescriptions: New polyethylene glycol 3350 [Miralax] 17 gram powder in packet 17 g PO DAILY Qty: 30 RF: 0 promethazine 25 mg suppository 25 mg ND Q6H PRN (Reason: nausea and vomiting) Qty: 12 RF: 0 prochlorperazine maleate [Compazine] 10 mg tablet 10 mg PO Q6H PRN (Reason: nausea and vomiting) Qty: 14 RF: 0 No Action alprazolam 1 mg tablet 1 mg PO DAILY PRN (Reason: Anxiety) RF: 0 bupropion HCl 300 mg tablet extended release 24 hr 300 mg PO DAILY RF: 0 ondansetron 4 mg tablet,disintegrating 4 mg PO Q8H MDD vomiting PRN (Reason: nausea and vomiting) 2 Days Qty: 7 RF: 0 sulfamethoxazole-trimethoprim [sulfamethoxazole-trimethoprim] 1 TABLET tablet 1 tab PO BID Qty: 6 RF: 0 promethazine [promethazine] 25 MG tablet 25 mg PO Q6H PRN PRN (Reason: Nausea) Qty: 10 RF: 0 potassium chloride 20 mEq tablet extended release 20 meq PO BID Qty: 6 RF: 0 Primary Care Provider: Sheron Villalba Referrals: Sheron Villalba MD [Primary Care Provider] - Maury Hagen DO [STAFF PHYSICIAN] - As Needed Activity Restrictions/Additional Instructions: Is important that you complete the course of antibiotics prescribed as you did have a urinary tract infection at your last ER visit. If you cannot keep the medicines down this time you will need to be admitted to the hospital. Please return if you feel like you are worsening. Make sure you are drinking lots of fluids. Disposition Disposition: Home, Self Care Discharge Date/Time: 12/31/21 16:43
[2021-12-31 10:00] LABS: Absolute Lymphocyte Count 1.33 X10^3/uL (0.83-4.51); Absolute Neutrophil Count 6.5 X10^3/uL (2.0-7.7); Basophil# 0.01 X10^3/uL; Basophil% 0.1 % (0-1); Hematocrit 42.7 % (37-47); Hemoglobin 14.6 g/dL (12.0-15.0); Lymphocyte # 1.33 X10^3/ul (0.83-4.51); Lymphocyte % 15.6 % (19-41); Mean Corp Hgb Conc 34.2 g/dL (32-36); Mean Corpuscular Hgb 27.8 pg (27.0-32.0); Mean Corpuscular Volume 81.2 fL (81-99); Monocyte# 0.73 X10^3/uL; Monocyte% 8.5 % (0-10); NRBC Flagged by Analyzer 0 % (0-5); Neutrophil # 6.45 X10^3/uL (2.7-7.7); Neutrophil % 75.4 % (47-70); Platelet Count 290 K/mm3 (150-450); RBC Distribution Width CV 15.8 % (11.6-14.6); RBC Distribution Width SD 44.8 fl (35.1-43.9); Red Blood Count 5.26 M/mm3 (4.2-5.4); White Blood Count 8.6 K/mm3 (4.4-11.0)
[2021-12-31] MEDS: LORazepam 2 MG/ML Syringe 1 MG IV (10:03)
[2021-12-31] MEDS: 0.9% Normal Saline 1,000 ML 1000 ML IV (10:03)
[2021-12-31] MEDS: Ondansetron 4 MG/2 ML Vial IV (10:03)
[2021-12-31] MEDS: Ceftriaxone 1 GM/50 ML BAG IV (10:10)
[2021-12-31 10:26] LABS: AST(SGOT) 26 U/L (15-37); Alanine Aminotransfer ALT/SGPT 31 U/L (13-56); Alkaline Phosphatase 75 U/L (45-117); Anion Gap 18 (5-15); BUN 6 mg/dL (7-18); BUN/Creat Ratio 5.9 RATIO (10-20); Calcium,Total 10.2 mg/dL (8.5-10.1); Chloride 102 mmol/L (98-107); Creatinine, Serum 1.02 mg/dL (0.55-1.02); EST Glomerular Filtration Rate 64 mL/min (>60); Est Glom Filt Rate - Afr Amer 77 mL/min (>60); Estimated Creatinine Clearance 61.25 ml/min; Globulin 4.1 g/dL (2.2-4.2); Glucose 86 mg/dL (74-106); Lipase 335 U/L (73-393); Potassium 3.5 mmol/L (3.5-5.1); Protein, Total 8.1 g/dL (6.4-8.2); Sodium Level 134 mmol/L (136-145); Troponin-I HS < 3 pg/mL (3.0-54.0)
[2021-12-31 10:37] LABS: D-Dimer Quantitative (DVT/PE) 0.35 FEU/ug/m (0.27-0.49)
[2021-12-31 11:00] VITALS: BP 112/78; PULSE 99; RESP 17; O2SAT 100
[2021-12-31 11:09] LABS: Mucous, Urine 0 SEEN /hpf (<or=2+); Red Blood Cells-Urine 0 SEEN /hpf (0-5)
[2021-12-31 11:11] LABS: Color, Urine Yellow (Yellow); Glucose, Dipstick Normal (Normal); Ketone-Dipstick 150 mg/dl (Negative); Leukocyte Esterase-Dipstick 25 /ul (Negative); Nitrite-Dipstick Negative (Negative); Occult Blood-Urine 10 /ul (Negative); Protein-Dipstick 30 mg/dl (Negative); Urine Bilirubin Dipstick Negative (Negative); Urine Clarity Clear (Clear); Urine Urobilinogen Normal (Normal)
[2021-12-31 11:19] LABS: Bacteria RARE /hpf (None Seen); Squamous Epithelial Cells - UA 0-5 SEEN /hpf (5-10); White Blood Cells 0-5 SEEN /hpf (0-5)
[2021-12-31 11:20] LABS: Internal QC Validated? YES +Cl - CLEAR BKGD; Pregnancy, Urine Negative Negative
--- NOTE | 2021-12-31 11:25 | CT_ITS ---
INDICATION: vomiting, constipation EXAMINATION: CT ABDOMEN AND PELVIS WITH CONTRAST - CT Abdomen And Pelvis W/ Contrast Injection TECHNIQUE: Helically acquired images were obtained of the abdomen and pelvis following IV contrast. A radiation dose optimization technique was used for this scan. IV Contrast dosage and agent: 100 [id number] Oral contrast: None. COMPARISON: CT abdomen/pelvis without contrast from 05/26/2021. FINDINGS: Lower thorax: The visualized lung bases are clear. Liver: Diffuse hepatic steatosis. Subcentimeter subcapsular low-attenuation lesion in segment 5, too small to characterize but likely benign. No acute findings. Gallbladder: Cholelithiasis. No CT findings of acute cholecystitis. No bile duct dilation. Spleen: Unremarkable. Pancreas: No focal parenchymal lesions. No duct dilation. Adrenal glands: Unremarkable. Kidneys: No subcentimeter left renal low-attenuation lesions too small to characterize but likely benign cysts. No solid masses. No hydronephrosis. No acute findings. Bladder: Normal appearance. GI tract: Moderate stool burden throughout the colon with suggestion of fecal stasis. There is a small enteroenteric intussusception in small bowel in the left lower quadrant. No significant bowel wall thickening or bowel dilation. Peritoneum/mesentery/retroperitoneum: No free air or free fluid. No masses or lymphadenopathy. Pelvis: Intact and stable appearance of surgical fixation plate and screws transfixing the left sacroiliac joint. Stable surgical pins adjacent to the fundus. Metallic streak artifact from the surgical hardware somewhat obscures assessment of the adjacent structures. Stable 5.5 cm septated right ovarian cyst. No free air or free fluid. No masses or lymphadenopathy. Vasculature: No acute findings. Bones/soft tissues: No acute findings. No destructive osseous lesions. Soft tissues are unremarkable. CT/Abdomen/Pelvis W IV Cont ONLY IMPRESSION: 1. Small enteroenteric intussusception in the left lower quadrant small bowel which is typically a transient and benign finding. 2. Constipation. No bowel obstruction. 3. Hepatic steatosis. 4. Cholelithiasis. No CT findings of acute cholecystitis. Electronically Signed: Octavio Newton, at 12:22 EDT ,
[2021-12-31] MEDS: Ketorolac 15 MG/ML Vial IV (11:30)
[2021-12-31] MEDS: Mag Hydrox/Al Hydrox/Simeth 30 ML UDC PO (12:30)
[2021-12-31] MEDS: Famotidine 200 MG/20 ML MDV 20 MG in 0.9% Normal Saline (Pres. free 8 ML 300 MG IV (12:30)
--- NOTE | 2021-12-31 13:22 | CT_ITS ---
STUDY: CT ABDOMEN AND PELVIS WITHOUT CONTRAST REASON FOR EXAM: Female, 41 years old. vomiting, intussusception on prior CT RADIATION DOSAGE (If Supplied By Facility): CTDIvol = ( 8.05 ) mGy, DLP = ( 412.15 ) mGycm TECHNIQUE: Transaxial images were obtained from the dome of the diaphragm to the symphysis pubis with oral contrast, and without intravenous contrast. Sagittal and coronal images were reconstructed. Individualized dose optimization techniques were used for this CT. COMPARISON: Earlier today FINDINGS: The visualized lung bases are unremarkable. The visualized portions of the heart are within normal limits. There is decreased attenuation of the liver consistent with steatosis. Normal gallbladder and extrahepatic biliary system. Normal spleen. Normal pancreas. Normal bilateral adrenal glands. Normal right kidney. Normal left kidney. Normal visualized stomach. No dilated loops of small bowel. Small bowel intussusception seen on prior CT is not identified on the current exam. Normal colon. The appendix is visualized and appears normal. Normal abdominal aorta. Normal inferior vena cava. Normal retroperitoneum. Excreted contrast in the urinary bladder. Urinary bladder. Right hemipelvis septated cyst or abutting cysts stable. Normal abdominal wall. Operative changes of the left sacroiliac joint with spray artifact. CT/Abdomen/Pel W ORAL Cont Only IMPRESSION: NO bowel obstruction or intussusception on the current exam. Electronically Signed: Kaiden Patel MD ([place]) at 16:14 EDT Reading Location ID and State: / [place] , Service support ,
[2021-12-31] MEDS: proCHLORPERazine 10 MG/2 ML Vial 5 MG IV (14:13)
[2021-12-31 15:36] VITALS: BP 147/85; PULSE 73; RESP 16; O2SAT 99
== END 2021-12-31 16:43 | disposition home or self-care (01) ==
PROVIDERS: Emergency Provider Emergency Medicine; PCP Internal Medicine; Visit Provider Emergency Medicine
DX: R11.2 Nausea with vomiting, unspecified (principal); F41.9 Anxiety disorder, unspecified; E87.6 Hypokalemia; K59.00 Constipation, unspecified; N39.0 Urinary tract infection, site not specified; F32.A Depression, unspecified
CPT/HCPCS: 71045; 74176; 74177; 80053; 81001; 81025; 83690; 84484; 85025; 85379; 93005; 96365; 96375; 99285; J7030; Q9967; A4216; J2405; J3490

== ENCOUNTER 2022-01-05 21:03 | Emergency (ER) | payer SELFPAY ==
[2022-01-05 21:04] VITALS: BP 108/87; PULSE 99; RESP 18; TEMP 37.1; O2SAT 99; BMI 30.9
[2022-01-05 21:59] LABS: Bacteria 0 SEEN /hpf (None Seen); Mucous, Urine 0 SEEN /hpf (<or=2+); Red Blood Cells-Urine 0 SEEN /hpf (0-5); Squamous Epithelial Cells - UA 0 SEEN /hpf (5-10)
[2022-01-05 22:00] LABS: Color, Urine Yellow (Yellow); Glucose, Dipstick Normal (Normal); Leukocyte Esterase-Dipstick 25 /ul (Negative); Nitrite-Dipstick Negative (Negative); Occult Blood-Urine Negative /ul (Negative); Protein-Dipstick 15 mg/dl (Negative); Specific Gravity, Urine 1.015 (1.002-1.030); Urine Bilirubin Dipstick Negative (Negative); Urine Clarity Clear (Clear); Urine Urobilinogen Normal (Normal)
[2022-01-05 22:04] LABS: Absolute Lymphocyte Count 1.91 X10^3/uL (0.83-4.51); Absolute Neutrophil Count 5.8 X10^3/uL (2.0-7.7); Basophil# 0.02 X10^3/uL; Basophil% 0.2 % (0-1); Hematocrit 49.7 % (37-47); Hemoglobin 16.9 g/dL (12.0-15.0); Lymphocyte # 1.91 X10^3/ul (0.83-4.51); Lymphocyte % 22.1 % (19-41); Mean Corpuscular Hgb 27.4 pg (27.0-32.0); Mean Corpuscular Volume 80.7 fL (81-99); Mean Platelet Vol. 11.3 fl (6.2-12.0); Monocyte% 10.4 % (0-10); NRBC Flagged by Analyzer 0 % (0-5); Neutrophil # 5.78 X10^3/uL (2.7-7.7); Platelet Count 255 K/mm3 (150-450); Red Blood Count 6.16 M/mm3 (4.2-5.4); White Blood Count 8.6 K/mm3 (4.4-11.0)
[2022-01-05 22:12] LABS: Internal QC Validated? YES +Cl - CLEAR BKGD; Pregnancy, Serum, hCG Quali. NEGATIVE Negative
[2022-01-05 22:15] LABS: Ketone-Dipstick 150 mg/dl (Negative)
[2022-01-05 22:17] LABS: White Blood Cells 0-5 SEEN /hpf (0-5)
[2022-01-05 22:18] LABS: Anion Gap 14 (5-15); BUN 8 mg/dL (7-18); BUN/Creat Ratio 7.5 RATIO (10-20); Calcium,Total 9.9 mg/dL (8.5-10.1); Chloride 97 mmol/L (98-107); Creatinine, Serum 1.07 mg/dL (0.55-1.02); EST Glomerular Filtration Rate 61 mL/min (>60); Est Glom Filt Rate - Afr Amer 73 mL/min (>60); Estimated Creatinine Clearance 58.39 ml/min; Glucose 96 mg/dL (74-106); Potassium 3.1 mmol/L (3.5-5.1); Sodium Level 132 mmol/L (136-145)
--- NOTE | 2022-01-05 22:35 | EX.ED.DYSGE1 ---
HPI History of Present Illness Chief Complaint: Nausea/Vomiting Informant: patient Narrative Narrative: Patient presents with nausea and vomiting that has been going on for about 9 days. She is evidently had episodes of this in the past but she tells me those only last about 2 days which may be a typical viral illness. She has had prior C-sections. Still has her gallbladder and appendix. However, she states she is not having pain. When she vomits she gets a little discomfort but is not having pain in general. She was first seen at urgent care given Zofran and sent over here for IV fluids. She had a lot of white cells in urine so antibiotics were started. She is not having urinary symptoms now. She is normally on Wellbutrin and fluoxetine. They have tried meds including Phenergan and Compazine. She is actually not gone home on Zofran at any time. She states she is still vomiting for 5 times a day and cannot keep fluids or solids down. No diarrhea. So far nothing is really made this significantly better and the only thing that makes it worse is trying to eat or drink. [facility] Medical History Anxiety Depression Memo's thyroiditis Home Medications alprazolam 1 mg PO DAILY PRN 07/04/21 [History Last Taken Unknown] bupropion HCl 300 mg PO DAILY 07/04/21 [History Last Taken Unknown] potassium chloride 20 meq PO BID #6 tab 12/28/21 [Rx Last Taken Unknown] promethazine 25 mg PO Q6H PRN PRN #10 tablet 12/28/21 [Rx Last Taken Unknown] polyethylene glycol 3350 [Miralax] 17 g PO DAILY #30 ea 12/31/21 [Rx Last Taken Unknown] prochlorperazine maleate [Compazine] 10 mg PO Q6H PRN #14 tab 12/31/21 [Rx Last Taken Unknown] fluoxetine 20 mg PO DAILY 01/05/22 [History Last Taken Unknown] metoclopramide HCl [Reglan] 10 mg PO Q6H PRN #10 tab 01/06/22 [Rx Last Taken Unknown] ondansetron 4 mg PO Q8H PRN #10 tab 01/06/22 [Rx Last Taken Unknown] Allergy/AdvReac Type Severity Reaction Status Date / Time No Known Allergies Allergy Verified 12/28/21 18:40 Surgical History H/O tubal ligation Social History Smoking Status: Never smoker ROS ROS ED Constitutional Constitutional ED: Denies chills or fever(s) Eyes Eyes: Denies blurry vision ENT ENT ED: Denies ear pain, rhinorrhea or sore throat Cardiovascular Cardiovascular: Denies chest pain Respiratory/Chest Respiratory/Chest: Reports dyspnea and other Details: Patient states she has some chronic dyspnea that waxes and wanes. But is not really associated specifically with this illness ; Denies cough Gastrointestinal Gastrointestinal: Reports nausea and vomiting; Denies abdominal pain or diarrhea Genitourinary Genitourinary ED: Denies dysuria, hematuria or urinary frequency Musculoskeletal Musculoskeletal: Denies myalgias Integumentary Denies rash Neurologic Neurologic: Denies headache(s) Psychiatric Psychiatric: Reports anxiety and depression Endocrine Endocrinology: Denies polydipsia or polyuria Allergic/Immunologic Allergic/Immunologic ED: Denies urticaria EXAM Physical Exam Const Vital Signs: 01/05/22 21:04 01/06/22 00:22 01/06/22 02:20 Temperature 98.7 F Temperature Source Temporal Pulse Rate 99 83 117 H Respiratory Rate 18 16 16 Blood Pressure 108/87 H 135/94 H 106/75 Blood Pressure Mean 94 107 85 Pulse Ox 99 100 99 Oxygen Delivery Method Room Air Room Air Room Air Positive well nourished and well developed General Appearance ED: well developed and NAD; Negative for cyanotic or diaphoretic HEENT Reports dry mucous membranes Mouth ED: Yes dry mucous membranes Mouth: dry mucous membranes Eyes General Eye ED: Yes pale conjunctiva Neck no JVD Chest Wall inspection of chest normal Resp normal respiratory effort and clear to auscultation bilaterally Cardio regular rate and regular rhythm GI normal to inspection, nondistended, normoactive bowel sounds, non-tender and non-distended Palpation: soft Back/Spine no CVA tenderness Extremity normal to inspection Neuro oriented x3 Sensorium / Orientation: alert Psych mental status grossly normal Skin no rashes or lesions noted MDM MDM MDM Narrative Medical decision making narrative: Patient's blood work showed normal white count. However, her hemoglobin actually was up a fair amount from recent levels. Potassium was slightly low. I am hesitant to give oral potassium as it commonly causes nausea vomiting. We will discussed with the patient the IV option. is negative. Benzos are positive but she is on alprazolam. Urine shows no sign of infection. Patient did not get a lot of benefit from Zofran and fluids. There were some slight improvements. We gave her Reglan and Benadryl. She is feeling a little bit better. She has not vomited here. We will try a p.o. challenge. My concern is that this is her third ER visit plus visit to urgent care and she is still not better. She has had CAT scan and repeat CAT scan. Images today of the abdomen do not show any acute process. But she does have some signs of dehydration with increased hemoglobin. I would like to make sure she can tolerate p.o. We did give her water to drink. She had a couple glasses. She states she has mild nausea but it is reasonably well controlled and she has no vomiting. She would like to try to go home again. I had initially thought we would likely admit her as she has had multiple visits. But her blood work is not showing any acute changes other than some dehydration. We have given her fluids here. I will write for Reglan and Zofran. She will use Benadryl with the Reglan. She states she has an appointment with her doctor in the beginning of the month. I will also give her referral to gastroenterology. She now seems to be saying she has had more problems of regarding nausea in the past. Repeat exam shows no tenderness also. Patient should not take any of the Compazine or Phenergan and use the Reglan instead rather than in addition to. Her EKG from the other day had a QTC of 450. Lab Data Labs: Laboratory Results - last 24 hr 01/05/22 01/05/22 01/05/22 21:45 21:45 21:45 WBC 8.6 RBC 6.16 H Hgb 16.9 H Hct 49.7 H MCV 80.7 L MCH 27.4 MCHC 34.0 RDW Std Deviation 46.0 H RDW Coeff of Micheal 17.0 H Plt Count 255 MPV 11.3 Immature Gran % (Auto) 0.300 Neut % (Auto) 67.0 Lymph % (Auto) 22.1 [place] % (Auto) 10.4 H Eos % (Auto) 0.0 Baso % (Auto) 0.2 Absolute Neuts (auto) 5.8 Absolute Lymphs (auto) 1.91 Nucleated RBC % 0 Sodium 132 L Potassium 3.1 L Chloride 97 L Carbon Dioxide 21.0 Anion Gap 14 BUN 8 Creatinine 1.07 H Estim Creat Clear Calc 58.39 Est GFR (MDRD) Af Amer 73 Est GFR (MDRD) Non-Af 61 BUN/Creatinine Ratio 7.5 L Glucose 96 Lactic Acid Calcium 9.9 Total Bilirubin Direct Bilirubin AST ALT Alkaline Phosphatase Total Protein Albumin Globulin Lipase Serum , Qual NEGATIVE Urine Color Urine Clarity Urine pH Ur Specific [place] Urine Protein Urine Glucose (UA) Urine Ketones Urine Occult Blood Urine Nitrite Urine Bilirubin Urine Urobilinogen Ur Leukocyte Esterase Urine RBC Urine WBC Ur Squamous Epith Cells Urine Bacteria Urine Mucus Urine Opiates Screen Urine Methadone Screen Ur Barbiturates Screen Ur Phencyclidine Scrn Ur Amphetamines Screen MDMA (Ecstasy) Screen U Benzodiazepines Scrn Urine Cocaine Screen U Cannabinoids Screen Ur Drug Screen Comment Ethyl Alcohol 01/05/22 01/05/22 01/05/22 21:45 21:45 21:45 WBC RBC Hgb Hct MCV MCH MCHC RDW Std Deviation RDW Coeff of Micheal Plt Count MPV Immature Gran % (Auto) Neut % (Auto) Lymph % (Auto) [place] % (Auto) Eos % (Auto) Baso % (Auto) Absolute Neuts (auto) Absolute Lymphs (auto) Nucleated RBC % Sodium Potassium Chloride Carbon Dioxide Anion Gap BUN Creatinine Estim Creat Clear Calc Est GFR (MDRD) Af Amer Est GFR (MDRD) Non-Af BUN/Creatinine Ratio Glucose Lactic Acid Calcium Total Bilirubin 1.30 H Direct Bilirubin 0.12 AST 45 H ALT 37 Alkaline Phosphatase 68 Total Protein 8.9 H Albumin 4.3 Globulin 4.6 H Lipase 718 H Serum , Qual Urine Color Yellow Urine Clarity Clear Urine pH 6.0 Ur Specific [place] 1.015 Urine Protein 15 H Urine Glucose (UA) Normal Urine Ketones 150 A* Urine Occult Blood Negative Urine Nitrite Negative Urine Bilirubin Negative Urine Urobilinogen Normal Ur Leukocyte Esterase 25 H Urine RBC 0 SEEN Urine WBC 0-5 SEEN Ur Squamous Epith Cells 0 SEEN Urine Bacteria 0 SEEN Urine Mucus 0 SEEN Urine Opiates Screen NEGATIVE Urine Methadone Screen NEGATIVE Ur Barbiturates Screen NEGATIVE Ur Phencyclidine Scrn NEGATIVE Ur Amphetamines Screen NEGATIVE MDMA (Ecstasy) Screen NEGATIVE U Benzodiazepines Scrn POSITIVE H Urine Cocaine Screen NEGATIVE U Cannabinoids Screen NEGATIVE Ur Drug Screen Comment Ethyl Alcohol 01/05/22 01/05/22 23:00 23:10 WBC RBC Hgb Hct MCV MCH MCHC RDW Std Deviation RDW Coeff of Micheal Plt Count MPV Immature Gran % (Auto) Neut % (Auto) Lymph % (Auto) [place] % (Auto) Eos % (Auto) Baso % (Auto) Absolute Neuts (auto) Absolute Lymphs (auto) Nucleated RBC % Sodium Potassium Chloride Carbon Dioxide Anion Gap BUN Creatinine Estim Creat Clear Calc Est GFR (MDRD) Af Amer Est GFR (MDRD) Non-Af BUN/Creatinine Ratio Glucose Lactic Acid 1.1 Calcium Total Bilirubin Direct Bilirubin AST ALT Alkaline Phosphatase Total Protein Albumin Globulin Lipase Serum , Qual Urine Color Urine Clarity Urine pH Ur Specific [place] Urine Protein Urine Glucose (UA) Urine Ketones Urine Occult Blood Urine Nitrite Urine Bilirubin Urine Urobilinogen Ur Leukocyte Esterase Urine RBC Urine WBC Ur Squamous Epith Cells Urine Bacteria Urine Mucus Urine Opiates Screen Urine Methadone Screen Ur Barbiturates Screen Ur Phencyclidine Scrn Ur Amphetamines Screen MDMA (Ecstasy) Screen U Benzodiazepines Scrn Urine Cocaine Screen U Cannabinoids Screen Ur Drug Screen Comment Ethyl Alcohol < 3.0 Radiography Diagnostic Testing: Clinical Impression(s) from Imaging Studies Acute Abdomen Series 01/05/22 22:50 IMPRESSION: Moderate colon contents with presumably contrast admixed with stool. No evidence of bowel obstruction, organomegaly, ascites, or other specific acute abnormality. Small calcification near the right pelvic sidewall appears similar to phleboliths elsewhere in the more inferior pelvis, not obviously suspicious for appendicolith. Suspicion of mild contrast in normal appendix in the right lower quadrant partially overlying the right iliac crest on one view. Electronically Signed: Kiera Call MD at 23:12 EDT , Discharge Plan Triage Chief Complaint: Nausea/Vomiting ED Provider: Yehuda Velarde Dx/Rx/DC Orders Clinical Impression: Nausea & vomiting Instructions: ED Vomiting (Adult) Prescriptions: New metoclopramide HCl [Reglan] 10 mg tablet 10 mg PO Q6H PRN (Reason: nausea and vomiting) Qty: 10 RF: 0 ondansetron 4 mg tablet,disintegrating 4 mg PO Q8H PRN (Reason: nausea and vomiting) Qty: 10 RF: 0 No Action alprazolam 1 mg tablet 1 mg PO DAILY PRN (Reason: Anxiety) RF: 0 bupropion HCl 300 mg tablet extended release 24 hr 300 mg PO DAILY RF: 0 promethazine [promethazine] 25 MG tablet 25 mg PO Q6H PRN PRN (Reason: Nausea) Qty: 10 RF: 0 potassium chloride 20 mEq tablet extended release 20 meq PO BID Qty: 6 RF: 0 polyethylene glycol 3350 [Miralax] 17 gram powder in packet 17 g PO DAILY Qty: 30 RF: 0 prochlorperazine maleate [Compazine] 10 mg tablet 10 mg PO Q6H PRN (Reason: nausea and vomiting) Qty: 14 RF: 0 fluoxetine 20 mg capsule 20 mg PO DAILY RF: 0 Primary Care Provider: Sheron Villalba Referrals: Sheron Villalba MD [Primary Care Provider] - Keep [place] appointment Maury Hagen DO [STAFF PHYSICIAN] - 1 Week if not improving Activity Restrictions/Additional Instructions: Try the Reglan instead of the Compazine or Phenergan. Do not take them together. Disposition Disposition: Home, Self Care
[2022-01-05] MEDS: 0.9% Normal Saline 1,000 ML 1000 ML IV (22:44)
[2022-01-05] MEDS: Ondansetron 4 MG/2 ML Vial IV (22:44)
--- NOTE | 2022-01-05 22:50 | RAD_ITS ---
EXAM: XR ABDOMEN, 2 VIEWS AND XR CHEST, 1 VIEW CLINICAL INDICATION: Pain TECHNIQUE: Frontal view of the chest, frontal view of the abdomen/pelvis and upright or decubitus view of the abdomen. This report was created using [employer] report generation technology. COMPARISON: December 31, 2021. FINDINGS: CHEST: LUNGS AND PLEURAL SPACES: Unremarkable. No consolidation or edema. No pneumothorax. No effusion. HEART: Unremarkable. Cardiac silhouette not enlarged. MEDIASTINUM: Central airways and mediastinal contour are unremarkable. IMPRESSION: No acute intrathoracic abnormality. Stable chest. ABDOMEN: INTRAPERITONEAL SPACE: No free air. GASTROINTESTINAL TRACT: There is apparently residual intraluminal contrast mixed with stool in the right colon, moderate stool, and in the transverse and descending colon. Mild gas in the distal sigmoid and rectum. No dilated small bowel. Moderate colon contents. Non-obstructive. No bowel or stomach distention. ORGANS: Unremarkable as visualized. No organomegaly. No abnormal calcifications. TUBES, LINES AND DEVICES: None. BONES/JOINTS: Postoperative change of the left iliac bone and sacroiliac region. SOFT TISSUES: No acute findings. OTHER: Presumed tubal ligation clips in the bilateral adnexal regions. RAD/Acute Abdomen Inc Chest IMPRESSION: Moderate colon contents with presumably contrast admixed with stool. No evidence of bowel obstruction, organomegaly, ascites, or other specific acute abnormality. Small calcification near the right pelvic sidewall appears similar to phleboliths elsewhere in the more inferior pelvis, not obviously suspicious for appendicolith. Suspicion of mild contrast in normal appendix in the right lower quadrant partially overlying the right iliac crest on one view. Electronically Signed: Kiera Call MD at 23:12 EDT ,
[2022-01-05 22:59] LABS: AST(SGOT) 45 U/L (15-37); Alanine Aminotransfer ALT/SGPT 37 U/L (13-56); Albumin, Serum 4.3 g/dL (3.2-5.0); Alkaline Phosphatase 68 U/L (45-117); Bilirubin, Direct 0.12 mg/dL (0.00-0.30); Globulin 4.6 g/dL (2.2-4.2); Lipase 718 U/L (73-393); Protein, Total 8.9 g/dL (6.4-8.2)
[2022-01-05 23:31] LABS: Lactic Acid 1.1 mmol/L (0.4-1.9)
[2022-01-05 23:52] LABS: Alcohol, Blood (Medical)-Serum < 3.0 mg/dL
[2022-01-06 00:04] LABS: Amphetamine Urine VISTA NEGATIVE (<1000 ng/mL); Barbiturate Urine VISTA NEGATIVE (< 200 ng/mL); Benzodiazepine Urine VISTA POSITIVE (< 200 ng/mL); Cocaine Urine VISTA NEGATIVE (< 300 ng/mL); Ecstacy Urine VISTA NEGATIVE (< 500 ng/mL); Methadone Urine VISTA NEGATIVE (< 300 ng/mL); PCP Urine VISTA NEGATIVE (< 25 ng/mL); THC Urine VISTA NEGATIVE (< 50 ng/mL); Vista UDS pH Range 8
[2022-01-06 00:22] VITALS: BP 135/94; PULSE 83; RESP 16; O2SAT 100
[2022-01-06] MEDS: DiphenhydrAMINE 50 MG/ML Syringe IV (02:16)
[2022-01-06] MEDS: Metoclopramide 10 MG/2 ML Vial 5 MG IV (02:16)
[2022-01-06 02:20] VITALS: BP 106/75; PULSE 117; RESP 16; O2SAT 99
[2022-01-06 05:10] VITALS: BP 121/84; PULSE 82; RESP 16; O2SAT 94
== END 2022-01-06 06:05 | disposition home or self-care (01) ==
PROVIDERS: Emergency Provider Emergency Medicine; PCP Internal Medicine; Visit Provider Emergency Medicine
DX: R11.2 Nausea with vomiting, unspecified (principal); F41.9 Anxiety disorder, unspecified; F32.A Depression, unspecified; Z79.899 Other long term (current) drug therapy
CPT/HCPCS: 74022; 80048; 80076; 80307; 81001; 82077; 83605; 83690; 84703; 85025; 87811; 96361; 96374; 96375; 99282; J7030; A4216; J2405

== ENCOUNTER 2022-03-05 17:20 | Inpatient (IN) | payer SELFPAY ==
[2022-03-05 17:21] VITALS: BP 132/92; PULSE 102; RESP 16; TEMP 37.7; O2SAT 100; BMI 25.4
--- NOTE | 2022-03-05 18:01 | EX.ED.DYSGE1 ---
HPI History of Present Illness Chief Complaint: Abd Pain Informant: patient Narrative Narrative: 41-year-old female presenting to the emergency department the chief complaint of right upper quadrant abdominal pain. Patient states that when she got up this morning she felt nauseated. As the day went on she developed pain in her epigastrium that seem to then spread over to the right upper quadrant and into the right flank. She notes some discomfort up in the right shoulder. She has had vomiting today no fever but did note that her temperature got up to around 99 (triage temperature of 99.9 however oral temperature in the room is 98.4). No diarrhea. She denies any urinary symptoms. Prior abdominal surgeries include . She notes that she has had a sore throat over the past couple days. [facility] Medical History Anxiety Depression Memo's thyroiditis Hx of fracture of pelvis Home Medications alprazolam 1 mg tablet 1 mg PO DAILY PRN Anxiety 07/04/21 [History Last Taken Unknown] bupropion HCl 300 mg 24 hr tablet, extended release 300 mg PO DAILY 07/04/21 [History Last Taken Unknown] fluoxetine 20 mg capsule 20 mg PO DAILY 01/05/22 [History Last Taken Unknown] Allergy/AdvReac Type Severity Reaction Status Date / Time No Known Allergies Allergy Verified 03/05/22 17:23 Surgical History H/O tubal ligation Hx of section Social History (Updated 03/05/22 @ 18:[address] Remberto Edwards DO) Smoking Status: Current every day smoker tobacco type: e-cigarettes substance use type: does not use ROS ROS ED Constitutional Constitutional ED: Denies chills or weight loss Eyes Eyes: Denies change in vision or diplopia ENT ENT ED: Reports sore throat; Denies ear pain or rhinorrhea Cardiovascular Cardiovascular: Denies chest pain, orthopnea, palpitations or racing heartbeat Respiratory/Chest Respiratory/Chest: Denies cough, dyspnea or orthopnea Gastrointestinal Gastrointestinal: Reports abdominal pain, nausea and vomiting; Denies diarrhea Genitourinary Genitourinary ED: Denies dysuria, hematuria or urinary frequency Musculoskeletal Musculoskeletal: Denies arthralgias or myalgias Integumentary Denies abscess or rash Neurologic Neurologic: Denies headache(s) or weakness Psychiatric Psychiatric: Denies anxiety, depression, suicidal ideation or suicidal thoughts Endocrine Endocrinology: Denies polydipsia, polyphagia or polyuria Allergic/Immunologic Allergic/Immunologic ED: Denies mouth swelling, tongue swelling or urticaria EXAM Physical Exam Const Vital Signs: 03/05/22 17:21 Temperature 99.9 F H Temperature Source Temporal Pulse Rate 102 H Respiratory Rate 16 Blood Pressure 132/92 H Blood Pressure Mean 105 Pulse Ox 100 Oxygen Delivery Method Room Air Positive well nourished and well developed General Appearance ED: well developed HEENT Reports normocephalic, head/scalp atraumatic and moist mucous membranes Eyes PERRL and EOMs intact bilaterally Neck no lymphadenopathy, supple and no JVD Resp normal respiratory effort and clear to auscultation bilaterally Cardio regular rate, regular rhythm and no murmurs GI non-distended Inspection: Negative for abdominal distention Auscultation: normoactive bowel sounds Palpation: soft and tender epigastric and RUQ Back/Spine no CVA tenderness and normal ROM Extremity normal to inspection General Extremety ED: Negative for edema General Extremity: Negative for edema Neuro oriented x3 and CN's II-XII intact bilaterally Sensorium / Orientation: alert Motor Exam: strength 5/5 throughout Psych mental status grossly normal Mood & Affect: Negative for depressed or tearful Skin no rashes or lesions noted and no wounds MDM MDM MDM Narrative Medical decision making narrative: White count is normal at 6.5. Lipase elevated 1043. Total bilirubin is elevated 2.4 and AST of 352 ALT of 169 and alk phos of 115. test is negative. Gallbladder ultrasound reveals a distended gallbladder with sludge but no shadowing stones. There is no pericholecystic fluid or gallbladder wall measures 2.5 mm. Common bile duct is 5.9 mm Case was discussed with surgeon Dr. Paul, molding machine setter Dr. Hagen and hospitalist Dr. Liu. Plan is admission into the hospital. Lab Data Attestation: I reviewed the patient's lab results. Labs: Laboratory Results - last 24 hr 03/05/22 03/05/22 03/05/22 18:12 18:12 18:12 WBC 6.5 RBC 4.26 Hgb 13.2 Hct 38.3 MCV 89.9 MCH 31.0 MCHC 34.5 RDW Std Deviation 57.1 H RDW Coeff of Micheal 17.4 H Plt Count 221 MPV 10.3 Immature Gran % (Auto) 0.300 Neut % (Auto) 71.0 H Lymph % (Auto) 19.8 [place] % (Auto) 8.4 Eos % (Auto) 0.0 Baso % (Auto) 0.5 Absolute Neuts (auto) 4.6 Absolute Lymphs (auto) 1.29 Nucleated RBC % 0 Sodium 135 L Potassium 3.7 Chloride 99 Carbon Dioxide 20.0 L Anion Gap 16 H BUN 9 Creatinine 0.85 Estim Creat Clear Calc 73.51 Est GFR (MDRD) Af Amer 95 Est GFR (MDRD) Non-Af 79 BUN/Creatinine Ratio 10.6 Glucose 76 Calcium 9.5 Total Bilirubin 2.40 H Direct Bilirubin 0.82 H AST 352 H ALT 169 H Alkaline Phosphatase 115 Total Protein 7.2 Albumin 3.4 Globulin 3.8 Lipase 1043 H Serum , Qual NEGATIVE Urine Color Urine Clarity Urine pH Ur Specific [place] Urine Protein Urine Glucose (UA) Urine Ketones Urine Occult Blood Urine Nitrite Urine Bilirubin Urine Urobilinogen Ur Leukocyte Esterase Urine RBC Urine WBC Ur Squamous Epith Cells Urine Bacteria Urine Mucus 03/05/22 18:50 WBC RBC Hgb Hct MCV MCH MCHC RDW Std Deviation RDW Coeff of Micheal Plt Count MPV Immature Gran % (Auto) Neut % (Auto) Lymph % (Auto) [place] % (Auto) Eos % (Auto) Baso % (Auto) Absolute Neuts (auto) Absolute Lymphs (auto) Nucleated RBC % Sodium Potassium Chloride Carbon Dioxide Anion Gap BUN Creatinine Estim Creat Clear Calc Est GFR (MDRD) Af Amer Est GFR (MDRD) Non-Af BUN/Creatinine Ratio Glucose Calcium Total Bilirubin Direct Bilirubin AST ALT Alkaline Phosphatase Total Protein Albumin Globulin Lipase Serum , Qual Urine Color Yellow Urine Clarity Clear Urine pH 6.0 Ur Specific [place] 1.015 Urine Protein 15 H Urine Glucose (UA) Normal Urine Ketones 150 A* Urine Occult Blood 25 H Urine Nitrite Negative Urine Bilirubin Negative Urine Urobilinogen Normal Ur Leukocyte Esterase 25 H Urine RBC 0-5 SEEN Urine WBC 0-5 SEEN Ur Squamous Epith Cells 0-5 SEEN Urine Bacteria 1+ Urine Mucus 0 SEEN Radiography Diagnostic Testing: Clinical Impression(s) from Imaging Studies Gallbladder Ultrasound 03/05/22 18:03 IMPRESSION: Enlarged fatty infiltrated liver. Biliary sludge without shadowing stones or acute cholecystitis. HIDA scan with CCK stimulation would be helpful for further assessment if indicated Electronically Signed: Rocael Young MD at 19:24 EDT , Discharge Plan Dx/Rx/DC Orders Clinical Impression: Acute pancreatitis, Abdominal pain, acute, Gallbladder sludge Disposition Disposition: Acute Care Hospital [facility]
--- NOTE | 2022-03-05 18:03 | US_ITS ---
STUDY: ABDOMINAL ULTRASOUND - RIGHT UPPER QUADRANT REASON FOR VISIT: Female, 41 years old PAIN TECHNIQUE: Ultrasound evaluation of the right upper quadrant was performed with real-time and static mcarthur-scale imaging. TECHNICAL QUALITY: Adequate. COMPARISON: None. FINDINGS: Liver: The liver measures 17.6 cm. There is diffusely increased echogenicity of the liver. The bile ducts are within normal limits. There is hepatic color flow. The direction of portal flow is hepatopetal. There is no demonstrated mass lesion. Gallbladder: Normal distended gallbladder. The gallbladder wall measures 2.5 mm. There is a negative sonographic Cam''s sign. There is no pericholecystic fluid. There is biliary sludge but no shadowing stones. Common Bile Duct (C.B.D.): The common bile duct measures 5.9 mm. Pancreas: Normal size of the head, body and tail of the pancreas. There is normal echogenicity of the pancreas. There is no demonstrated pancreatic mass or cyst. Right Kidney: Normal size of the right kidney. The right kidney measures cm. Normal renal cortex. The right cortex measures 9.3 x 4.9 x 3.7 cm. There is no demonstrated renal mass or cyst. There is no right hydronephrosis. US/Gallbladder IMPRESSION: Enlarged fatty infiltrated liver. Biliary sludge without shadowing stones or acute cholecystitis. HIDA scan with CCK stimulation would be helpful for further assessment if indicated Electronically Signed: Rocael Young MD at 19:24 EDT ,
[2022-03-05] MEDS: Morphine 4 MG/ML Syringe IV ×2 (18:09→21:04)
[2022-03-05] MEDS: Ondansetron 4 MG/2 ML Vial IV (18:09)
[2022-03-05 18:37] LABS: Absolute Lymphocyte Count 1.29 X10^3/uL (0.83-4.51); Absolute Neutrophil Count 4.6 X10^3/uL (2.0-7.7); Basophil# 0.03 X10^3/uL; Basophil% 0.5 % (0-1); Hematocrit 38.3 % (37-47); Hemoglobin 13.2 g/dL (12.0-15.0); Lymphocyte # 1.29 X10^3/ul (0.83-4.51); Lymphocyte % 19.8 % (19-41); Mean Corp Hgb Conc 34.5 g/dL (32-36); Mean Corpuscular Volume 89.9 fL (81-99); Mean Platelet Vol. 10.3 fl (6.2-12.0); Monocyte# 0.55 X10^3/uL; Monocyte% 8.4 % (0-10); NRBC Flagged by Analyzer 0 % (0-5); Neutrophil # 4.63 X10^3/uL (2.7-7.7); Platelet Count 221 K/mm3 (150-450); RBC Distribution Width CV 17.4 % (11.6-14.6); RBC Distribution Width SD 57.1 fl (35.1-43.9); Red Blood Count 4.26 M/mm3 (4.2-5.4); White Blood Count 6.5 K/mm3 (4.4-11.0)
[2022-03-05 18:53] LABS: AST(SGOT) 352 U/L (15-37); Alanine Aminotransfer ALT/SGPT 169 U/L (13-56); Albumin, Serum 3.4 g/dL (3.2-5.0); Alkaline Phosphatase 115 U/L (45-117); Anion Gap 16 (5-15); BUN 9 mg/dL (7-18); BUN/Creat Ratio 10.6 RATIO (10-20); Bilirubin, Direct 0.82 mg/dL (0.00-0.30); Calcium,Total 9.5 mg/dL (8.5-10.1); Chloride 99 mmol/L (98-107); Creatinine, Serum 0.85 mg/dL (0.55-1.02); EST Glomerular Filtration Rate 79 mL/min (>60); Est Glom Filt Rate - Afr Amer 95 mL/min (>60); Estimated Creatinine Clearance 73.51 ml/min; Globulin 3.8 g/dL (2.2-4.2); Glucose 76 mg/dL (74-106); Lipase 1043 U/L (73-393); Potassium 3.7 mmol/L (3.5-5.1); Protein, Total 7.2 g/dL (6.4-8.2); Sodium Level 135 mmol/L (136-145)
[2022-03-05 19:00] LABS: Mucous, Urine 0 SEEN /hpf (<or=2+)
[2022-03-05 19:02] LABS: Color, Urine Yellow (Yellow); Glucose, Dipstick Normal (Normal); Leukocyte Esterase-Dipstick 25 /ul (Negative); Nitrite-Dipstick Negative (Negative); Occult Blood-Urine 25 /ul (Negative); Protein-Dipstick 15 mg/dl (Negative); Specific Gravity, Urine 1.015 (1.002-1.030); Urine Bilirubin Dipstick Negative (Negative); Urine Clarity Clear (Clear); Urine Urobilinogen Normal (Normal)
[2022-03-05 19:12] LABS: Ketone-Dipstick 150 mg/dl (Negative)
[2022-03-05 19:16] LABS: Bacteria 1+ /hpf (None Seen); Red Blood Cells-Urine 0-5 SEEN /hpf (0-5); Squamous Epithelial Cells - UA 0-5 SEEN /hpf (5-10); White Blood Cells 0-5 SEEN /hpf (0-5)
[2022-03-05 19:21] VITALS: PULSE 95; RESP 16; O2SAT 98
[2022-03-05 20:16] LABS: Internal QC Validated? YES +Cl - CLEAR BKGD; Pregnancy, Serum, hCG Quali. NEGATIVE Negative
--- NOTE | 2022-03-05 20:57 | HP.PCM.HOS_ITS ---
HPI - General General Date of Admission: 03/05/22 Date of Service: 03/05/22 Chief Complaint: RUQ pain, nausea, emesis HPI Narrative The patient is a 41 y/o F w/ PMHx: Anxiety and Depression, Hx Memo's thyroiditis, Tobacco use who presents to the [facility] ED on 03/05/22 with history of onset nausea upon awakening with eventual epigastric discomfort eventually transitioning to her RUQ with some deferred pain to the R shoulder with emesis associated with no fever during the day; however in the ED patient with noted low grade T. She notes the pain is both dull aching and sharp stabbing in nature, rates it at 7-8/10 in severity. She notes she has severe anxiety. Work- up in the ED included T99.9, heart rate 102, BP 132/92, respiratory rate 16, 100% room air, CBC with WC of 6.5, hemoglobin 13.2, platelet 221 without marked shift, CMP with sodium 135, CO2 20, anion gap 16, glucose 76, T bili 2.40, D bili 0.82, AST/ALT 352/169, lipase 1043, serum negative, urinalysis with specific remedy 1.015, glucose normal, ketone 150, occult blood 25, negative nitrite, leukocyte Estrace 25, 1+ urine bacteria, rapid COVID antigen negative, gallbladder with enlarged fatty infiltrated liver, biliary sludge without any shadowing stones or acute cholecystitis. Gastroenterology and General surgery consulted per ED physician. In ED patient ministered normal saline fluids, morphine IV x2 rounds, Ativan, Zosyn and Zofran therapy. [facility] Medical History Alcohol use Anxiety and depression Asthma Memo's thyroiditis Hx of fracture of pelvis Tobacco use Home Medications alprazolam 1 mg tablet 1 mg PO DAILY PRN Anxiety 07/04/21 [History Last Taken Unknown] bupropion HCl 300 mg 24 hr tablet, extended release 300 mg PO DAILY 07/04/21 [History Last Taken Unknown] fluoxetine 20 mg capsule 20 mg PO DAILY depression 01/05/22 [History Last Taken Unknown] albuterol sulfate 90 mcg/actuation aerosol inhaler 2 puff inhalation Q4H PRN Shortness Of Breath Or Wheezing 03/05/22 [History Last Taken Unknown] Allergy/AdvReac Type Severity Reaction Status Date / Time No Known Allergies Allergy Verified 03/05/22 17:23 Family History (Updated 03/05/22 @ 22:[address] Mildred Liu MD) Father Heart disease Mother CVA (cerebral vascular accident) Surgical History (Updated 03/05/22 @ 22:[address] Mildred Liu MD) H/O tubal ligation History of pelvic surgery Hx of section Social History (Updated 03/05/22 @ 22:[address] Mildred Liu MD) household members: family and children Smoking Status: Current every day smoker tobacco type: e-cigarettes Electronic Cigarette Use: with nicotine alcohol intake: current alcohol intake frequency: 0-2 drinks per day details: Drinks 1 vodka drink 1-2 ounces up to once q HS. substance use type: does not use ROS ROS Narrative Admission Review of Systems: CONSTITUTIONAL: No weight loss, fever, chills, + weakness or fatigue. HEENT: Eyes: No visual loss, blurred vision, double vision or yellow sclerae. Ears, Nose, Throat: No hearing loss, sneezing, congestion, runny nose or sore throat. SKIN: No rash or itching, lesions, wounds. CARDIOVASCULAR: No chest pain, chest pressure or chest discomfort, palpitations, edema, orthopnea, syncopal events. RESPIRATORY: No shortness of breath, cough or sputum, wheezing, hemoptysis. GASTROINTESTINAL: + anorexia, nausea, vomiting, abdominal pain, No diarrhea, melena, BRBPR. GENITOURINARY: No dysuria, frequency, urgency or retention. NEUROLOGICAL: No headache, dizziness, syncope, paralysis, ataxia, numbness or tingling in the extremities, focal weakness, change in bowel or bladder control, seizure. MUSCULOSKELETAL: No muscle, back pain, joint pain or stiffness. HEMATOLOGIC: No anemia, bleeding or bruising. LYMPHATICS: No enlarged nodes. No history of splenectomy. PSYCHIATRIC: + history of depression or anxiety. ENDOCRINOLOGIC: No reports of sweating, cold or heat intolerance. No polyuria or polydipsia. ALLERGIES: No history of asthma, hives, eczema or rhinitis. Vital Signs Vital Signs Vital Signs: 03/05/22 17:21 Temperature 99.9 F H Temperature Source Temporal Pulse Rate 102 H Respiratory Rate 16 Blood Pressure 132/92 H Blood Pressure Mean 105 Pulse Ox 100 Oxygen Delivery Method Room Air Weight Weight: 143 lb 9.6 oz Body Mass Index (BMI) 25.4 Physical Exam Narrative Physical Examination: General: Awake, alert, oriented x 3 and cooperative, seated upright in the ED bed, anxious, notes pain still 7-8 out of 10 however does not appear in severe pain, walking the bed which she notes she does when she is anxious. Skin: Normal color, normal turgor, no icterus, no cyanosis. HEENT: AT/NC, EOMI, PERRLA, dry MM, no carotid bruits or JVD noted. Lungs: CTA bilaterally, moderate effort, mild decrease BL bases, no rales, ronchi or wheezing. Heart: Regular rate and rhythm; no gallop, rub audible. Abdomen: Soft, with distraction no severe discomfort with epigastric or right upper quadrant palpation, no rebound or guarding, no obvious distention, hyperactive bowel sounds, no obvious HSM. Extremities: No cyanosis, clubbing, or edema. Neurological: Patient awake, alert, oriented as noted cognitive function intact; pupils equally reactive to light and accommodation, cranial nerves II-XII grossly normal, moving all 4 extremities, no focal deficits, strength mildly globally decreased secondary to acute presentation Psychiatric: Affect appears anxious, rocking in the bed, improves with distraction, underlying history of depression and anxiety with panic attacks. Results Lab / Micro Data Result Diagrams: 03/05/22 18:12 03/05/22 18:12 Labs: Laboratory Results - last 24 hr 03/05/22 18:12: WBC 6.5, RBC 4.26, Hgb 13.2, Hct 38.3, MCV 89.9, MCH 31.0, MCHC 34.5, RDW Std Deviation 57.1 H, RDW Coeff of Micheal 17.4 H, Plt Count 221, MPV 10.3, Immature Gran % (Auto) 0.300, Neut % (Auto) 71.0 H, Lymph % (Auto) 19.8, [place] % (Auto) 8.4, Eos % (Auto) 0.0, Baso % (Auto) 0.5, Absolute Neuts (auto) 4.6, Absolute Lymphs (auto) 1.29, Nucleated RBC % 0 03/05/22 18:12: Sodium 135 L, Potassium 3.7, Chloride 99, Carbon Dioxide 20.0 L, Anion Gap 16 H, BUN 9, Creatinine 0.85, Estim Creat Clear Calc 73.51, Est GFR (MDRD) Af Amer 95, Est GFR (MDRD) Non-Af 79, BUN/Creatinine Ratio 10.6, Glucose 76, Calcium 9.5, Total Bilirubin 2.40 H, Direct Bilirubin 0.82 H, AST 352 H, ALT 169 H, Alkaline Phosphatase 115, Total Protein 7.2, Albumin 3.4, Globulin 3.8, Lipase 1043 H 03/05/22 18:12: Serum , Qual NEGATIVE 03/05/22 18:50: Urine Color Yellow, Urine Clarity Clear, Urine pH 6.0, Ur Specific [place] 1.015, Urine Protein 15 H, Urine Glucose (UA) Normal, Urine Ketones 150 A*, Urine Occult Blood 25 H, Urine Nitrite Negative, Urine Bilirubin Negative, Urine Urobilinogen Normal, Ur Leukocyte Esterase 25 H, Urine RBC 0-5 SEEN, Urine WBC 0-5 SEEN, Ur Squamous Epith Cells 0-5 SEEN, Urine Bacteria 1+, Urine Mucus 0 SEEN Micro: Microbiology 03/05/22 18:14 Nasal Secretion SARS-CoV-2 Antigen (Rapid) - Final Radiology Impression Gallbladder Ultrasound 03/05/22 18:03 IMPRESSION: Enlarged fatty infiltrated liver. Biliary sludge without shadowing stones or acute cholecystitis. HIDA scan with CCK stimulation would be helpful for further assessment if indicated Electronically Signed: Rocael Young MD at 19:24 EDT Reading Location ID and State: [address] [place] [address] , Service support , Assessment & Plan Assessment/Plan (1) Acute pancreatitis: PLAN: Plan The patient is a 41 y/o F w/ PMHx: Anxiety and Depression, Hx Memo's thyroiditis, Tobacco use who presents to the [facility] ED on 03/05/22 with history of onset nausea upon awakening with eventual epigastric discomfort eventually transitioning to her RUQ with some deferred pain to the R shoulder with emesis associated with no fever during the day; however in the ED patient with noted low grade T. #1. Acute pancreatitis w/ abdominal pain, N/V with elevated bilirubin, LFTs concerning for possible gallbladder involvement: Will admit to medical surgical floor, maintain on IVFs, NPO, PPI, IV/po pain control, trend lipase, CMP. Gallbladder ultrasound as noted with an enlarged fatty infiltrated liver with biliary sludge without any shadowing stones or acute cholecystitis, will obtain FLP. Patient reports she has been drinking 1 alcoholic beverage specifically and mixed vodka drink daily but primarily has been doing this to help her sleep with lengthy discussion to recommend alternate more healthy ways of assisting with insomnia. Discussed EtOH consumption risk as etiology for pancreatitis and strongly recommended against heavy alcohol intake with UDS and ethyl alcohol level requested. General surgery is consulted and will defer decision for HIDA scan or further evaluation of the biliary system to their service. Per general surgery recommendation will maintain on Zosyn therapy pending their evaluation. #2. Anxiety and depression: We will continue patient home fluoxetine, bupropion and alprazolam regimen. Strongly recommended that patient avoid excessive al cohol intake to assist her with insomnia and anxiety. Strongly recommended she follow-up with her psychiatrist/therapist #3. Tobacco Abuse: Encouraged cessation, inpatient consultation per RT, NR if desired. #4. DVT prophylaxis: SCDs, defer chemoprophylaxis given acute presentation for possible OR. Charges/Coding Visit Charges Inpatient E&M: 30919 Init Hosp L3
[2022-03-05 21:00] VITALS: PULSE 92; RESP 16; O2SAT 98
[2022-03-05 21:03] VITALS: BP 125/82; PULSE 91; RESP 16; TEMP 36.6; O2SAT 98
[2022-03-05] MEDS: LORazepam 2 MG/ML Syringe 0.5 MG IV (21:04)
[2022-03-05 21:53] VITALS: O2SAT 98
[2022-03-05 22:13] VITALS: BMI 25.4
[2022-03-05 22:27] VITALS: BP 112/77; PULSE 84; RESP 16; TEMP 37.2; O2SAT 99
[2022-03-05] MEDS: 0.9% Normal Saline 1,000 ML 200 ML IV (22:47)
[2022-03-05] MEDS: Acetaminophen 325 MG Tablet 650 MG PO (22:53)
[2022-03-05] MEDS: oxyCODONE 5 MG Tablet PO (22:53)
--- NOTE | 2022-03-05 23:00 | PCM.CONS.GEN ---
Assessment & Plan Assessment/Plan (1) Acute gallstone pancreatitis: PLAN: She will undergo ercp followed by cholecystectomy. She was explained alternatives, risk, benefits including outstanding bleeding, infection, sepsis, perforation, need for emergency or . She will have an ASA of 1. HPI Consult Data Date of Consult: 03/05/22 Attending Care Provider: jaundice HPI Narrative Reason for Consultation: obstructive jaundice HPI Narrative: ROQUE VIVEROS, is a 41 F who presenting to the emergency department the chief complaint of right upper quadrant abdominal pain.? Patient states that when she got up this morning she felt nauseated.? As the day went on she developed pain in her epigastrium that seem to then spread over to the right upper quadrant and into the right flank.? She notes some discomfort up in the right shoulder.? She has had vomiting today no fever but did note that her temperature got up to around 99 (triage temperature of 99.9 however oral temperature in the room is 98.4).? No diarrhea.? She denies any urinary symptoms.? Prior abdominal surgeries include .? She notes that she has had a sore throat over the past couple days. PFSH Medical History Alcohol use Anxiety and depression Asthma Memo's thyroiditis Hx of fracture of pelvis Tobacco use Home Medications alprazolam 1 mg tablet 1 mg PO DAILY PRN Anxiety 07/04/21 [History Last Taken Unknown] bupropion HCl 300 mg 24 hr tablet, extended release 300 mg PO DAILY 07/04/21 [History Last Taken Unknown] fluoxetine 20 mg capsule 20 mg PO DAILY depression 01/05/22 [History Last Taken Unknown] albuterol sulfate 90 mcg/actuation aerosol inhaler 2 puff inhalation Q4H PRN Shortness Of Breath Or Wheezing 03/05/22 [History Last Taken Unknown] oxycodone 5 mg tablet 5 mg PO Q6H PRN pain 3 days #12 tabs 03/09/22 [Rx Last Taken Unknown] potassium chloride 20 mEq tablet,extended release 20 meq PO DAILY #10 tabs 03/10/22 [Rx Last Taken Unknown] Allergy/AdvReac Type Severity Reaction Status Date / Time No Known Allergies Allergy Verified 03/05/22 17:23 Family History (Updated 03/05/22 @ 22:[address] Mildred Liu MD) Father Heart disease Mother CVA (cerebral vascular accident) Surgical History (Updated 03/09/22 @ 12:[address] Rashmi Centeno MD) H/O tubal ligation History of pelvic surgery Hx of section Status post laparoscopic cholecystectomy Social History (Updated 03/05/22 @ 22:[address] Mildred Liu MD) household members: family and children Smoking Status: Current every day smoker tobacco type: e-cigarettes Electronic Cigarette Use: with nicotine alcohol intake: current alcohol intake frequency: 0-2 drinks per day details: Drinks 1 vodka drink 1-2 ounces up to once q HS. substance use type: does not use ROS Review of Systems ROS Unobtainable: other Constitutional Constitutional: Denies fatigue, fever(s), poor appetite, weight gain or weight loss ENT HEENT: Denies mouth lesions Cardiovascular Cardiovascular: Denies abdominal bloating, abdominal edema or abdominal pain Respiratory/Chest Respiratory/Chest: Denies change in mental status, change in phlegm color, chest congestion or chest tightness Gastrointestinal Gastrointestinal: Denies belching, bloating, change in bowel habits, change in stool character, chewing difficulty, coffee ground emesis, constipation, cramping, diarrhea, dyspepsia, dysphagia, early satiety, excessive flatus, fecal incontinence, heartburn, hematemesis, hematochezia, hemorrhoids, loose stools, melena, nausea, odynophagia, rectal bleeding, tenesmus, vomiting or weight changes Genitourinary Genitourinary: Denies abdominal discomfort, burning urination or itching Musculoskeletal Musculoskeletal: Reports as per HPI; Denies muscle weakness or myalgias Integumentary Integumentary: Denies jaundice Neurologic Neurologic: Denies lack of coordination or weakness Psychiatric Psychiatric: Denies confusion, depression, memory loss, mood swings, paranoia or suicidal ideation Endocrine Endocrinology: Denies systems reviewed and no addt'l complaints, except as documented Hematologic/Lymphatic Hematologic/Lymphatic: Denies anemia, easy bleeding, easy bruising or lymphadenopathy Allergic/Immunologic Allergic/Immunologic: Denies systems reviewed and no addt'l complaints, except as documented Physical Exam Const alert, oriented x3 and no apparent distress HEENT head/scalp atraumatic, moist oral mucous membranes and oropharynx normal Eyes PERRL, EOMs intact bilaterally and conjunctivae normal Neck no lymphadenopathy, supple and no JVD Resp normal respiratory effort, no retractions, no use of accessory muscles and clear to auscultation bilaterally Cardio regular rate, regular rhythm, S1 normal heart sound, S2 normal heart sound and no murmurs GI normal to inspection, nondistended, normoactive bowel sounds, soft to palpation and non-distended GI Narrative: intact dressing over laparoscopic sites. mild tenderness with palpation Extremity normal to inspection, full ROM and no clubbing, cyanosis or edema Neuro oriented x3, CN's II-XII intact bilaterally, moves all extremities, no focal motor deficits and no sensory deficits noted Sensorium / Orientation: awake and alert Motor Exam: strength 5/5 throughout Psych Psych Narrative: flat affect Mood & Affect: anxious Lab / Micro Data Result Diagrams: 03/10/22 04:30 03/10/22 15:24 Charges/Coding Visit Charges Inpatient E&M: 45841 Init Hosp L2
[2022-03-06] VITALS (11 sets, daily range): BP systolic 93–133; BP diastolic 57–101; PULSE 72–89; RESP 16–18; TEMP 36.6–37.1; O2SAT 98–100; BMI 25.4
[2022-03-06 00:20] LABS: Amphetamine Urine VISTA NEGATIVE (<1000 ng/mL); Barbiturate Urine VISTA NEGATIVE (< 200 ng/mL); Benzodiazepine Urine VISTA POSITIVE (< 200 ng/mL); Cocaine Urine VISTA NEGATIVE (< 300 ng/mL); Ecstacy Urine VISTA NEGATIVE (< 500 ng/mL); Methadone Urine VISTA NEGATIVE (< 300 ng/mL); PCP Urine VISTA NEGATIVE (< 25 ng/mL); THC Urine VISTA NEGATIVE (< 50 ng/mL); Vista UDS pH Range 5
[2022-03-06] MEDS: Ondansetron 4 MG/2 ML Vial IV ×2 (02:59→21:14)
[2022-03-06] MEDS: Acetaminophen 325 MG Tablet 650 MG PO (02:59)
[2022-03-06] MEDS: oxyCODONE 5 MG Tablet PO (02:59)
[2022-03-06] MEDS: 0.9% Normal Saline 1,000 ML 200 ML IV ×4 (02:59→20:01)
[2022-03-06] MEDS: ALPRAZolam 0.5 MG Tablet 1 MG PO (03:03)
[2022-03-06] MEDS: HYDROmorphone 0.5 MG/0.5 ML SYRINGE IV ×3 (05:55→21:15)
[2022-03-06] MEDS: 0.9% Saline Lock 10 ML Syringe IV ×3 (05:55→21:14)
[2022-03-06 06:04] LABS: Absolute Lymphocyte Count 1.53 X10^3/uL (0.83-4.51); Absolute Neutrophil Count 3.7 X10^3/uL (2.0-7.7); Basophil# 0.04 X10^3/uL; Basophil% 0.7 % (0-1); Eosinophil# 0.01 X10^3/uL; Eosinophils% 0.2 % (0-5); Hematocrit 33.2 % (37-47); Lymphocyte # 1.53 X10^3/ul (0.83-4.51); Lymphocyte % 26.7 % (19-41); Mean Corp Hgb Conc 33.1 g/dL (32-36); Mean Corpuscular Hgb 31.1 pg (27.0-32.0); Mean Corpuscular Volume 93.8 fL (81-99); Mean Platelet Vol. 10.2 fl (6.2-12.0); Monocyte# 0.43 X10^3/uL; Monocyte% 7.5 % (0-10); NRBC Flagged by Analyzer 0 % (0-5); Neutrophil # 3.67 X10^3/uL (2.7-7.7); Neutrophil % 64.2 % (47-70); Platelet Count 177 K/mm3 (150-450); RBC Distribution Width CV 17.3 % (11.6-14.6); RBC Distribution Width SD 59.7 fl (35.1-43.9); Red Blood Count 3.54 M/mm3 (4.2-5.4); White Blood Count 5.7 K/mm3 (4.4-11.0)
[2022-03-06 06:46] LABS: AST(SGOT) 165 U/L (15-37); Alanine Aminotransfer ALT/SGPT 108 U/L (13-56); Albumin, Serum 2.7 g/dL (3.2-5.0); Alkaline Phosphatase 80 U/L (45-117); Anion Gap 11 (5-15); BUN 13 mg/dL (7-18); BUN/Creat Ratio 16.8 RATIO (10-20); Calcium,Total 7.7 mg/dL (8.5-10.1); Chloride 105 mmol/L (98-107); Creatinine, Serum 0.78 mg/dL (0.55-1.02); EST Glomerular Filtration Rate 88 mL/min (>60); Est Glom Filt Rate - Afr Amer 106 mL/min (>60); Estimated Creatinine Clearance 76.59 ml/min; Globulin 2.8 g/dL (2.2-4.2); Glucose 78 mg/dL (74-106); Lipase 1292 U/L (73-393); Potassium 3.4 mmol/L (3.5-5.1); Protein, Total 5.5 g/dL (6.4-8.2); Sodium Level 139 mmol/L (136-145)
[2022-03-06] MEDS: buPROPion (XL) 300 MG TABLET.XL PO (10:07)
[2022-03-06] MEDS: FLUoxetine 20 MG Capsule PO (10:07)
--- NOTE | 2022-03-06 11:40 | CON.PCM.SX_ITS ---
Assessment & Plan Assessment/Plan (1) Acute gallstone pancreatitis: PLAN: Plan This is a 41-year-old female who is admitted for signs and symptoms of acute gallstone pancreatitis. Given her still rising lipase and bilirubin, gastroenterology intends to proceed with ERCP for possible stone extraction later today. I have visited with patient regarding a plan for laparoscopic cholecystectomy with intraoperative cholangiogram as a means of reducing her risk for a future episode of pancreatitis. I also discussed the details of the procedure and the postoperative expectations. She expressed understanding of this information and a interest in proceeding as described. Procedure is tentatively set for 03/08/2022. Patient should be held n.p.o. past midnight the evening before anticipation of this procedure. We will continue to follow along patient's labs and abdominal exam. HPI Consult Data Date of Consult: 03/06/22 HPI Narrative Reason for Consultation: Gallstone pancreatitis HPI Narrative: ROQUE VIVEROS, is a 41 F who presents to [facility] with complaints of acute onset abdominal pain, nausea, and vomiting. She states that she had a stomach flu several weeks ago and initially believed her symptoms yesterday were related to gas pains. however in the ER she underwent a laboratory investigation which found mild transaminitis and an elevation of her lipase. Follow-up ultrasound imaging demonstrated relatively normal-appearing gallbladder without gallstones but there was presence of sludge. Patient was admitted to the hospitalist service with consultations made from the ER to gastroenterology and general surgery. Patient states this is her first such experience of this type of pain. She admits that although she recovered from her stomach flu symptoms she was still feeling poorly the night before her presentation with a sore throat and did not eat much of anything. She has a history of alcohol use which she states is related to her severe anxiety. She reports 1 shot of liquor 3 times weekly to help her sleep. She also uses tobacco and a vaping form. Only prior surgical history is section x5. 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 She states that she required anticoagulation with each thereafter, but has now been off of any anticoagulation for many years. 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 [facility] Medical History Alcohol use Anxiety and depression Asthma Memo's thyroiditis Hx of fracture of pelvis Tobacco use Home Medications alprazolam 1 mg tablet 1 mg PO DAILY PRN Anxiety 07/04/21 [History Last Taken Unknown] bupropion HCl 300 mg 24 hr tablet, extended release 300 mg PO DAILY 07/04/21 [History Last Taken Unknown] fluoxetine 20 mg capsule 20 mg PO DAILY depression 01/05/22 [History Last Taken Unknown] albuterol sulfate 90 mcg/actuation aerosol inhaler 2 puff inhalation Q4H PRN Shortness Of Breath Or Wheezing 03/05/22 [History Last Taken Unknown] Allergy/AdvReac Type Severity Reaction Status Date / Time No Known Allergies Allergy Verified 03/05/22 17:23 Family History (Updated 03/05/22 @ 22:[address] Mildred Liu MD) Father Heart disease Mother CVA (cerebral vascular accident) Surgical History (Updated 03/05/22 @ 22:[address] Mildred Liu MD) H/O tubal ligation History of pelvic surgery Hx of section Social History (Updated 03/05/22 @ 22:[address] Mildred Liu MD) household members: family and children Smoking Status: Current every day smoker tobacco type: e-cigarettes Electronic Cigarette Use: with nicotine alcohol intake: current alcohol intake frequency: 0-2 drinks per day details: Drinks 1 vodka drink 1-2 ounces up to once q HS. substance use type: does not use Physical Exam Const alert and oriented x3 Constitutional Narrative: Anxious General Appearance: cooperative Resp normal respiratory effort GI GI Narrative: Nondistended, no abdominal scars, soft, tender to palpation in the epigastrium as well as the right upper quadrant. Negative Cam sign. Lab / Micro Data Result Diagrams: 03/06/22 05:30 03/06/22 05:30 Labs: Laboratory Results - last 24 hr 03/05/22 18:12: WBC 6.5, RBC 4.26, Hgb 13.2, Hct 38.3, MCV 89.9, MCH 31.0, MCHC 34.5, RDW Std Deviation 57.1 H, RDW Coeff of Micheal 17.4 H, Plt Count 221, MPV 10.3, Immature Gran % (Auto) 0.300, Neut % (Auto) 71.0 H, Lymph % (Auto) 19.8, [place] % (Auto) 8.4, Eos % (Auto) 0.0, Baso % (Auto) 0.5, Absolute Neuts (auto) 4.6, Absolute Lymphs (auto) 1.29, Nucleated RBC % 0 03/05/22 18:12: Sodium 135 L, Potassium 3.7, Chloride 99, Carbon Dioxide 20.0 L, Anion Gap 16 H, BUN 9, Creatinine 0.85, Estim Creat Clear Calc 73.51, Est GFR (MDRD) Af Amer 95, Est GFR (MDRD) Non-Af 79, BUN/Creatinine Ratio 10.6, Glucose 76, Calcium 9.5, Total Bilirubin 2.40 H, Direct Bilirubin 0.82 H, AST 352 H, ALT 169 H, Alkaline Phosphatase 115, Total Protein 7.2, Albumin 3.4, Globulin 3.8, Lipase 1043 H 03/05/22 18:12: Serum , Qual NEGATIVE 03/05/22 18:50: Urine Color Yellow, Urine Clarity Clear, Urine pH 6.0, Ur Specific [place] 1.015, Urine Protein 15 H, Urine Glucose (UA) Normal, Urine Ketones 150 A*, Urine Occult Blood 25 H, Urine Nitrite Negative, Urine Bilirubin Negative, Urine Urobilinogen Normal, Ur Leukocyte Esterase 25 H, Urine RBC 0-5 SEEN, Urine WBC 0-5 SEEN, Ur Squamous Epith Cells 0-5 SEEN, Urine Bacteria 1+, Urine Mucus 0 SEEN 03/05/22 18:50: Urine Opiates Screen NEGATIVE, Urine Methadone Screen NEGATIVE, Ur Barbiturates Screen NEGATIVE, Ur Phencyclidine Scrn NEGATIVE, Ur Amphetamines Screen NEGATIVE, MDMA (Ecstasy) Screen NEGATIVE, U Benzodiazepines Scrn POSITIVE H, Urine Cocaine Screen NEGATIVE, U Cannabinoids Screen NEGATIVE, Ur Drug Screen Comment 03/05/22 23:25: Ethyl Alcohol 7.0 03/06/22 05:30: WBC 5.7, RBC 3.54 L, Hgb 11.0 L, Hct 33.2 L, MCV 93.8, MCH 31.1, MCHC 33.1, RDW Std Deviation 59.7 H, RDW Coeff of Micheal 17.3 H, Plt Count 177, MPV 10.2, Immature Gran % (Auto) 0.700, Neut % (Auto) 64.2, Lymph % (Auto) 26.7, [place] % (Auto) 7.5, Eos % (Auto) 0.2, Baso % (Auto) 0.7, Absolute Neuts (auto) 3.7, Absolute Lymphs (auto) 1.53, Nucleated RBC % 0 03/06/22 05:30: Sodium 139, Potassium 3.4 L, Chloride 105, Carbon Dioxide 23.0, Anion Gap 11, BUN 13, Creatinine 0.78, Estim Creat Clear Calc 76.59, Est GFR (MDRD) Af Amer 106, Est GFR (MDRD) Non-Af 88, BUN/Creatinine Ratio 16.8, Glucose 78, Calcium 7.7 L, Total Bilirubin 2.90 H, AST 165 H, ALT 108 H, Alkaline Phosphatase 80, Total Protein 5.5 L, Albumin 2.7 L, Globulin 2.8, Albumin/Globulin Ratio 1.0, Lipase 1292 H Micro: Microbiology 03/05/22 18:14 Nasal Secretion SARS-CoV-2 Antigen (Rapid) - Final Radiology Impression Gallbladder Ultrasound 03/05/22 18:03 IMPRESSION: Enlarged fatty infiltrated liver. Biliary sludge without shadowing stones or acute cholecystitis. HIDA scan with CCK stimulation would be helpful for further assessment if indicated Electronically Signed: Rocael Young MD at 19:24 EDT , Charges/Coding Visit Charges Inpatient E&M: 59343 Init Hosp L2
--- NOTE | 2022-03-06 12:46 | EKG12_ITS ---
Test Reason : PREOP Blood Pressure : / mmHG Vent. Rate : 074 BPM Atrial Rate : 074 BPM P-R Int : 156 ms QRS Dur : 080 ms QT Int : 444 ms P-R-T Axes : -09 055 022 degrees QTc Int : 492 ms Normal sinus rhythm Prolonged QT Abnormal ECG When compared with ECG of 31-DEC-2021 09:44, No significant change was found Confirmed by CB ROSADO, [place] ([id number]), publications editor KAREN JOEL ([id number]) on 03/11/2022 11:16:31 AM Referred By: ELOISA Confirmed By:TAMMIE VIVAR MD
--- NOTE | 2022-03-06 12:50 | CASEMGMT ---
FAUZIA RAMESH Assessment: Face to Face with pt for initial transition planning/care coordination assessment. RN DOMITILA introduced self and role at [facility], pt voices understanding and consents to assessment. Pt is A/O x4 and answers all questions appropriately at this time. Pt sitting on bed with family at bedside, pt and 3 children. Care providers, pharmacy, and demographics verified/updated. Admitting Dx: acute pancreatitis PCP: [facility] Specialists:Pt denies. Preferred [facility]acy:[facility] Insurance: Self Pay Prescription Benefit: no LW/HPOA: Pt denies having a LW/DPOA and denies need for info regarding AD. LNOK: Rachel Samay[place], mother Living Arrangements: Pt lives with and 5 children in a two story house with no steps to enter. Pt reports she is I in ADL's and denies concerns at home. Transportation: Pt drives self and denies concerns with transportation. DME/HHC/SNF: Pt denies having any DME in the home. Denies previous HHC or SNF stays. Pt states no concerns with going home at time of dc. Pt states no further concerns/needs. CM to follow. Advised pt to ask CM if any further question/concerns/needs arise, voices understanding. Pt Goal: Home Plan: Home
--- NOTE | 2022-03-06 13:32 | PN.HOSP_ITS ---
Subjective Subjective Patient seen and examined. SHe still complained of epigastric pain. She also complains of anxiety. She denies any fever, chills, nausea, vomiting or diarrhea. Review of systems is otherwise negative. Objective Data Objective Data Vital Signs: Vital Signs Temp Pulse Resp BP Pulse Ox O2 Del Method 98.8 F 80 16 118/77 100 Room Air 03/06/22 11:41 03/06/22 11:41 03/06/22 11:41 03/06/22 11:41 03/06/22 11:41 03/06/22 11:41 Oxygen Delivery Method Room Air Weight: 143 lb 4.807 oz Body Mass Index (BMI) 25.4 Intake & Output: Intake and Output for Last 24 Hours 03/04/22 03/05/22 03/06/22 23:59 23:59 23:59 Intake Total 210 / 210 2940 / 2940 Balance 210 / 210 2940 / 2940 Lab / Micro Data Result Diagrams: 03/06/22 05:30 03/06/22 05:30 Labs: Laboratory Results - last 24 hr 03/05/22 18:12: WBC 6.5, RBC 4.26, Hgb 13.2, Hct 38.3, MCV 89.9, MCH 31.0, MCHC 34.5, RDW Std Deviation 57.1 H, RDW Coeff of Micheal 17.4 H, Plt Count 221, MPV 10.3, Immature Gran % (Auto) 0.300, Neut % (Auto) 71.0 H, Lymph % (Auto) 19.8, [place] % (Auto) 8.4, Eos % (Auto) 0.0, Baso % (Auto) 0.5, Absolute Neuts (auto) 4.6, Absolute Lymphs (auto) 1.29, Nucleated RBC % 0 03/05/22 18:12: Sodium 135 L, Potassium 3.7, Chloride 99, Carbon Dioxide 20.0 L, Anion Gap 16 H, BUN 9, Creatinine 0.85, Estim Creat Clear Calc 73.51, Est GFR (MDRD) Af Amer 95, Est GFR (MDRD) Non-Af 79, BUN/Creatinine Ratio 10.6, Glucose 76, Calcium 9.5, Total Bilirubin 2.40 H, Direct Bilirubin 0.82 H, AST 352 H, ALT 169 H, Alkaline Phosphatase 115, Total Protein 7.2, Albumin 3.4, Globulin 3.8, Lipase 1043 H 03/05/22 18:12: Serum , Qual NEGATIVE 03/05/22 18:50: Urine Color Yellow, Urine Clarity Clear, Urine pH 6.0, Ur Specific [place] 1.015, Urine Protein 15 H, Urine Glucose (UA) Normal, Urine Ketones 150 A*, Urine Occult Blood 25 H, Urine Nitrite Negative, Urine Bilirubin Negative, Urine Urobilinogen Normal, Ur Leukocyte Esterase 25 H, Urine RBC 0-5 SEEN, Urine WBC 0-5 SEEN, Ur Squamous Epith Cells 0-5 SEEN, Urine Bacteria 1+, Urine Mucus 0 SEEN 03/05/22 18:50: Urine Opiates Screen NEGATIVE, Urine Methadone Screen NEGATIVE, Ur Barbiturates Screen NEGATIVE, Ur Phencyclidine Scrn NEGATIVE, Ur Amphetamines Screen NEGATIVE, MDMA (Ecstasy) Screen NEGATIVE, U Benzodiazepines Scrn POSITIVE H, Urine Cocaine Screen NEGATIVE, U Cannabinoids Screen NEGATIVE, Ur Drug Screen Comment 03/05/22 23:25: Ethyl Alcohol 7.0 03/06/22 05:30: WBC 5.7, RBC 3.54 L, Hgb 11.0 L, Hct 33.2 L, MCV 93.8, MCH 31.1, MCHC 33.1, RDW Std Deviation 59.7 H, RDW Coeff of Micheal 17.3 H, Plt Count 177, MPV 10.2, Immature Gran % (Auto) 0.700, Neut % (Auto) 64.2, Lymph % (Auto) 26.7, [place] % (Auto) 7.5, Eos % (Auto) 0.2, Baso % (Auto) 0.7, Absolute Neuts (auto) 3.7, Absolute Lymphs (auto) 1.53, Nucleated RBC % 0 03/06/22 05:30: Sodium 139, Potassium 3.4 L, Chloride 105, Carbon Dioxide 23.0, Anion Gap 11, BUN 13, Creatinine 0.78, Estim Creat Clear Calc 76.59, Est GFR (MDRD) Af Amer 106, Est GFR (MDRD) Non-Af 88, BUN/Creatinine Ratio 16.8, Glucose 78, Calcium 7.7 L, Total Bilirubin 2.90 H, AST 165 H, ALT 108 H, Alkaline Phosphatase 80, Total Protein 5.5 L, Albumin 2.7 L, Globulin 2.8, Albumin/Globulin Ratio 1.0, Lipase 1292 H Micro: Microbiology 03/05/22 18:14 Nasal Secretion SARS-CoV-2 Antigen (Rapid) - Final Radiography Diagnostic Testing: Radiology Impression Gallbladder Ultrasound 03/05/22 18:03 IMPRESSION: Enlarged fatty infiltrated liver. Biliary sludge without shadowing stones or acute cholecystitis. HIDA scan with CCK stimulation would be helpful for further assessment if indicated Electronically Signed: Rocael Young MD at 19:24 EDT Reading Location ID and State: [facility] / [place] , Service support , Physical Exam Const alert, oriented x3 and no apparent distress HEENT head/scalp atraumatic, moist oral mucous membranes and oropharynx normal Head and Scalp: normocephalic Eyes PERRL, EOMs intact bilaterally and conjunctivae normal Neck no lymphadenopathy, supple and no JVD Resp normal respiratory effort, no retractions, no use of accessory muscles and clear to auscultation bilaterally Cardio regular rate, regular rhythm, S1 normal heart sound, S2 normal heart sound and no murmurs GI normal to inspection, nondistended, normoactive bowel sounds, soft to palpation, non-tender and non-distended Extremity normal to inspection, full ROM and no clubbing, cyanosis or edema Neuro oriented x3, CN's II-XII intact bilaterally, moves all extremities, no focal motor deficits and no sensory deficits noted Sensorium / Orientation: awake and alert Motor Exam: strength 5/5 throughout Psych Mood & Affect: anxious Assessment & Plan Assessment/Plan (1) Acute pancreatitis: PLAN: Plan #Acute pancreatitis * suspect gallbladder etiology. * liver enzymes are trending upwards * gallbladder USG showed enlarged fatty liver with biliary sludge without any stones or acute cholecystitis * she doesnt drink much;says she drinks only ~ 1 alcoholic beverage daily * currently NPO, being hydrated with IVF * general surgery on board; GI also on board. * on IV zosyn, per general surgery recommendation * #Hypokalemia: K is 3.4. Will replace and trend. #Elevated liver enzymes * total bilirubin has trended up to 2.9 from 2.4 on admission. #Anxiety and depression; on fluoxetine, bupropion and alprazolam #Nicotine dependence: counseled to quit. On nicotine patch 21mg daily DVT prophylaxis: SCDs. Charges/Coding Visit Charges Inpatient E&M: 43462 Subs Hosp L3
--- NOTE | 2022-03-06 14:25 | RAD_ITS ---
STUDY: ERCP. REASON FOR EXAM: Female, 41 years old. Right upper quadrant pain. FLUOROSCOPY TIME (if supplied): ( 54.4 seconds ) minutes/seconds. 9 images were submitted. TECHNIQUE: An ERCP was performed by the engineer operations and maintenance. Contrast was injected. A small filling defect is seen in the distal common bile duct suggestive of a small CBD stone. COMPARISON: None. FINDINGS: Findings suggest very small calculus in the distal portion of the common bile duct. RAD/ERCP Biliary Only IMPRESSION: Small filling defect in the distal portion of the common bile duct. Electronically Signed: Albert Corona MD at 8:37 EDT ,
--- NOTE | 2022-03-06 15:06 | OP.ERCP_ITS ---
Patient Name: Taya Story Procedure Date: 03/06/2022 1:48 PM Date of : 1980 Age: 41 Procedure: ERCP Indications: Suspected bile duct stone(s), Jaundice, Elevated aspartate transaminase (AST), Elevated alanine transaminase (ALT), Acute pancreatitis Providers: Maury Hagen DO Medicines: General Anesthesia Patient Profile: This is a 41 year old female. Refer to note in patient chart for documentation of history and physical. Patient has symptoms of acute epigastric abdominal pain. Complications: No immediate complications. Procedure: Pre-Anesthesia Assessment: - Prior to the procedure, a History and Physical was performed, and patient medications and allergies were reviewed. The patient is competent. The risks and benefits of the procedure and the sedation options and risks were discussed with the patient. All questions were answered and informed consent was obtained. Patient identification and proposed procedure were verified by the physician in the pre-procedure area. Mental Status Examination: alert and oriented. Airway Examination: normal oropharyngeal airway and neck mobility. Respiratory Examination: clear to auscultation. CV Examination: normal. Prophylactic Antibiotics: The patient does not require prophylactic antibiotics. Prior Anticoagulants: The patient has taken no previous anticoagulant or antiplatelet agents. ASA Grade Assessment: II - A patient with mild systemic disease. After reviewing the risks and benefits, the patient was deemed in satisfactory condition to undergo the procedure. The anesthesia plan was to use moderate sedation / analgesia (conscious sedation). Immediately prior to administration of medications, the patient was re-assessed for adequacy to receive sedatives. The heart rate, respiratory rate, oxygen saturations, blood pressure, adequacy of pulmonary ventilation, and response to care were monitored throughout the procedure. The physical status of the patient was re-assessed after the procedure. After obtaining informed consent, the scope was passed under direct vision. Throughout the procedure, the patient's blood pressure, pulse, and oxygen saturations were monitored continuously. The Duodenoscope was introduced through the mouth, and advanced to the duodenum and used to inject contrast into the bile duct and ventral pancreatic duct. The ERCP was accomplished without difficulty. The patient tolerated the procedure well. Scope In: 2:25:10 PM Scope Out: 2:57:11 PM Total Procedure Duration Time 0 hours 32 minutes 1 second Findings: The business services sales agent film was normal. The esophagus was successfully intubated under direct vision. The scope was advanced to a normal major papilla in the descending duodenum without detailed examination of the pharynx, larynx and associated structures, and upper GI tract. The upper GI tract was grossly normal. The bile duct was deeply cannulated with the short-nosed traction sphincterotome. Contrast was injected. I personally interpreted the bile duct and pancreatic duct images. There was brisk flow of contrast through the ducts. Opacification of the entire opacified area was successful. The maximum diameter of the ducts was 7 mm. The lower third of the main bile duct contained one stone, which was 4 mm in diameter. The main bile duct was mildly dilated, with a stone causing an obstruction. The largest diameter was 7 mm. A straight Roadrunner wire was passed into the biliary tree. A 5 mm biliary sphincterotomy was made with a monofilament traction (standard) sphincterotome using ERBE electrocautery. The sphincterotomy oozed blood. The biliary tree was swept with a 15 mm balloon starting at the bifurcation. Sludge was swept from the duct. All stones were removed. One 10 Fr by 5 cm temporary stent was placed 5 cm into the common bile duct. Bile flowed through the stent. The stent was in good position. One 5 Fr by 3 cm temporary stent with a full external pigtail was placed 5 cm into the ventral pancreatic duct. Clear fluid flowed through the stent. The stent was in good position. Impression: - The entire main bile duct was mildly dilated, with a stone causing an obstruction. - Choledocholithiasis was found. Complete removal was accomplished by biliary sphincterotomy and balloon extraction. - A biliary sphincterotomy was performed. - The biliary tree was swept. - One temporary stent was placed into the common bile duct. - One temporary stent was placed into the ventral pancreatic duct. Procedure Code(s): --- Professional --- 55319, Endoscopic retrograde cholangiopancreatography (ERCP); with placement of endoscopic stent into biliary or pancreatic duct, including pre- and post-dilation and guide wire passage, when performed, including sphincterotomy, when performed, each stent [id number], 59, Endoscopic retrograde cholangiopancreatography (ERCP); with placement of endoscopic stent into biliary or pancreatic duct, including pre- and post-dilation and guide wire passage, when performed, including sphincterotomy, when performed, each stent [id number], Endoscopic retrograde cholangiopancreatography (ERCP); with removal of calculi/debris from biliary/pancreatic duct(s) 12266, 26, Combined endoscopic catheterization of the biliary and pancreatic ductal systems, radiological supervision and interpretation CPT copyright 2017 [employer]. All rights reserved. The codes documented in this report are preliminary and upon fire investigation lieutenant review may be revised to meet current compliance requirements. Maury Hagen DO 03/06/2022 3:06:09 PM This report has been signed electronically. Number of Addenda: 0 Note Initiated On: 03/06/2022 1:48 PM
--- NOTE | 2022-03-06 15:07 | OP.CCLET_ITS ---
03/06/2022 Sheron Villalba [address] [place] [address] Re : ERCP procedure for Taya Jesse Dear Dr. Villalba This procedure was performed on Sunday, March 06, 2022. My impressions and recommendations are as follows: Impressions : - The entire main bile duct was mildly dilated, with a stone causing an obstruction. - Choledocholithiasis was found. Complete removal was accomplished by biliary sphincterotomy and balloon extraction. - A biliary sphincterotomy was performed. - The biliary tree was swept. - One temporary stent was placed into the common bile duct. - One temporary stent was placed into the ventral pancreatic duct. Recommendations : My findings are described in the full procedure note, which is enclosed. If I can be of further assistance, please feel free to contact me at . Sincerely, Maury Hagen, 03/06/2022 3:06:09 PM This report has been signed electronically.
[2022-03-06] MEDS: BENZOCAINE/MENTHOL 1 LOZENGE 2 LOZENGE MUCOUS MEM ×2 (16:00→17:48)
[2022-03-06] MEDS: 0.9% Normal Saline 1,000 ML 999 ML IV ×2 (16:00→16:42)
--- NOTE | 2022-03-06 17:30 | NURSING ---
pt family asking is someone can stay night. explained that visiting hours are over at 8pm and it is hospital policy that no one stays night. pt crying that no one could stay night.
[2022-03-06] MEDS: LORazepam 1 MG Tablet PO (18:35)
--- NOTE | 2022-03-06 18:41 | NURSING ---
nursing call ed to room. pt crying. stated she had to have something for anxiety, she needs to be sedated. explained to pt that she had ativan in pacu and dilaudid here. that her xanax is ordered once daily and she had this this am. pt stated she had to have something all the drs are lying to her. they told her she could have liquids after ercp but now she is npo. explained that pancreatitis called for bowel rest and her labs this am were worst then admit. pt continue to request anxiety medication. called dr martinez and ativan po ordered. medicated pt as ordered.
--- NOTE | 2022-03-06 18:50 | CM.ED ---
SW Note Referral Source: Case Find Referral Reason: No insurance SW met with patient. Patient was crying. Patient voiced they lied to me and stated she was told she could eat but now can't. SW asked if the situation had changed and patient said that her blood levels were high. Patient said that she wanted a sedative. SW asked patient how she manages stress at home and patient said one or two times I handle it and then I take xanax. SW talked about how benzo's can be addictive and thus MD's are careful about prescribing them. SW asked if patient has coping strategies that work and patient said I have had this a long time. SW offered stress ball, calming breathing techniques or calling friend or family for support and patient declined all these suggestions. SW provided patient with a medicaid application. Patient said will I need my certificate and social security number and this creative writer said yes. Patient said well, my gets direct deposit. SW advised patient to speak to [facility] about this question. At this time RN came in with Ativan and patient, upon learning she was going to get medicine, was not crying and her breathing was controlled and at a normal rate (even prior to getting the medication). Emotional support provided. SW is available if needs arise. Plan: Medicaid application provided Siena ALEMAN
[2022-03-06] MEDS: Temazepam 15 MG Capsule PO (21:14)
[2022-03-07] MEDS: 0.9% Normal Saline 1,000 ML 200 ML IV ×5 (01:08→20:29)
[2022-03-07] MEDS: Acetaminophen 325 MG Tablet 650 MG PO ×5 (03:16→20:29)
[2022-03-07] MEDS: oxyCODONE 5 MG Tablet PO ×5 (03:16→20:29)
[2022-03-07 03:24] VITALS: BP 106/77; PULSE 74; RESP 16; TEMP 36.6; O2SAT 99
[2022-03-07 06:38] LABS: Absolute Lymphocyte Count 0.61 X10^3/uL (0.83-4.51); Absolute Neutrophil Count 3.5 X10^3/uL (2.0-7.7); Basophil# 0.01 X10^3/uL; Basophil% 0.2 % (0-1); Hematocrit 30.5 % (37-47); Lymphocyte # 0.61 X10^3/ul (0.83-4.51); Lymphocyte % 13.7 % (19-41); Mean Corp Hgb Conc 32.8 g/dL (32-36); Mean Corpuscular Hgb 31.7 pg (27.0-32.0); Mean Corpuscular Volume 96.8 fL (81-99); Mean Platelet Vol. 10.7 fl (6.2-12.0); Monocyte# 0.32 X10^3/uL; Monocyte% 7.2 % (0-10); NRBC Flagged by Analyzer 0 % (0-5); Neutrophil % 78.5 % (47-70); Platelet Count 147 K/mm3 (150-450); RBC Distribution Width CV 17.2 % (11.6-14.6); RBC Distribution Width SD 60.7 fl (35.1-43.9); Red Blood Count 3.15 M/mm3 (4.2-5.4); White Blood Count 4.5 K/mm3 (4.4-11.0)
[2022-03-07 07:14] LABS: ALB/GLOB Ratio 0.9 RATIO (0.9-2.4); AST(SGOT) 169 U/L (15-37); Alanine Aminotransfer ALT/SGPT 93 U/L (13-56); Albumin, Serum 2.5 g/dL (3.2-5.0); Alkaline Phosphatase 72 U/L (45-117); Anion Gap 13 (5-15); BUN 4 mg/dL (7-18); BUN/Creat Ratio 7.4 RATIO (10-20); Chloride 111 mmol/L (98-107); Creatinine, Serum 0.54 mg/dL (0.55-1.02); EST Glomerular Filtration Rate 133 mL/min (>60); Est Glom Filt Rate - Afr Amer 160 mL/min (>60); Globulin 2.7 g/dL (2.2-4.2); Glucose 107 mg/dL (74-106); Potassium 3.8 mmol/L (3.5-5.1); Protein, Total 5.2 g/dL (6.4-8.2); Sodium Level 140 mmol/L (136-145)
[2022-03-07] MEDS: ALPRAZolam 0.5 MG Tablet 1 MG PO (07:39)
[2022-03-07] MEDS: buPROPion (XL) 300 MG TABLET.XL PO (07:41)
[2022-03-07] MEDS: FLUoxetine 20 MG Capsule PO (07:41)
[2022-03-07 08:04] VITALS: BP 119/82; PULSE 68; RESP 16; TEMP 36.5; O2SAT 100
--- NOTE | 2022-03-07 09:27 | CASEMGMT ---
RYAN Note: Referral Source: RYAN MS3 Referral Reason: Mental Health SW met with patient today. Patient said that she is doing better today. Patient voiced that she has eaten today. Patient is brighter and more reactive than when this worker saw her yesterday. Patient said that her family is coming in to visit her today. Patient got villalta from her parents in [place]. Patient said that she has both anxiety and depression. She said that she takes medication from her pcp which includes Prozac, Wellbutrin and Xanax. Patient voiced that she takes the medication as prescribed. Patient said that the medication is helpful. SW discussed counseling and patient said that the uses on line support groups. Patient denied any current SI/HI. Denied any past psych hospitalizations. SW provided patient with [facility] 211 resource list that included Mental Health and AOD counseling support agencies. SW remains available if needs arise. SW advised patient that if patient needs assistance to contact staff for social sciences lecturer and patient verbalized understanding. RYAN spoke to Minda, Patient's RN. Minda said that patient is doing better today. Siena ALEMAN
--- NOTE | 2022-03-07 10:38 | PCM.PN.SRG ---
Subjective Subjective Patient was seen and examined during AM rounds. She initially reports that she is not doing so well, but when she was asked to clarify this she stated that her back was quite sore from the uncomfortable beds here. She states that her abdominal pain is significantly improved. She also requested a diet advancement. Objective Data Objective Data Vital Signs: Vital Signs Temp Pulse Resp BP Pulse Ox O2 Del Method 97.7 F L 68 16 119/82 H 100 Room Air 03/07/22 08:04 03/07/22 08:04 03/07/22 08:04 03/07/22 08:04 03/07/22 08:04 03/07/22 08:04 Oxygen Delivery Method Room Air Weight: 143 lb 4.807 oz Body Mass Index (BMI) 25.4 Intake & Output: Intake and Output for Last 24 Hours 03/05/22 03/06/22 03/07/22 23:59 23:59 23:59 Intake Total 210 / 210 5495.96 / 5495.96 3026.66 / 3026.66 Balance 210 / 210 5495.96 / 5495.96 3026.66 / 3026.66 Lab / Micro Data Result Diagrams: 03/07/22 05:50 03/07/22 05:50 Labs: Laboratory Results - last 24 hr 03/07/22 05:50: WBC 4.5, RBC 3.15 L, Hgb 10.0 L, Hct 30.5 L, MCV 96.8, MCH 31.7, MCHC 32.8, RDW Std Deviation 60.7 H, RDW Coeff of Micheal 17.2 H, Plt Count 147 L, MPV 10.7, Immature Gran % (Auto) 0.400, Neut % (Auto) 78.5 H, Lymph % (Auto) 13.7 L, [place] % (Auto) 7.2, Eos % (Auto) 0.0, Baso % (Auto) 0.2, Absolute Neuts (auto) 3.5, Absolute Lymphs (auto) 0.61 L, Nucleated RBC % 0 03/07/22 05:50: Sodium 140, Potassium 3.8, Chloride 111 H, Carbon Dioxide 16.0 L, Anion Gap 13, BUN 4 L, Creatinine 0.54 L, Estim Creat Clear Calc 115.70, Est GFR (MDRD) Af Amer 160, Est GFR (MDRD) Non-Af 133, BUN/Creatinine Ratio 7.4 L, Glucose 107 H, Calcium 7.0 L, Total Bilirubin 1.50 H, AST 169 H, ALT 93 H, Alkaline Phosphatase 72, Total Protein 5.2 L, Albumin 2.5 L, Globulin 2.7, Albumin/Globulin Ratio 0.9 Micro: Microbiology 03/05/22 18:14 Nasal Secretion SARS-CoV-2 Antigen (Rapid) - Final Radiography Diagnostic Testing: Radiology Impression ERCP X-Ray 03/06/22 14:25 IMPRESSION: Small filling defect in the distal portion of the common bile duct. Electronically Signed: Albert Corona MD at 8:37 EDT , Physical Exam Const alert and oriented x3 Constitutional Narrative: Anxious General Appearance: cooperative Resp normal respiratory effort GI GI Narrative: Nondistended, no abdominal scars, soft, resolution of tenderness to palpation in the right upper quadrant and near complete resolution of tenderness in the epigastrium. Negative Cam sign. Assessment & Plan Assessment/Plan (1) Acute gallstone pancreatitis: PLAN: Plan This is a 41-year-old female who is admitted for signs and symptoms of acute gallstone pancreatitis. Given her still rising lipase and bilirubin, gastroenterology takes patient for ERCP yesterday and found choledocholithiasis. Stone was extracted and patient's symptoms are improved today along with her labs. I have visited with patient regarding a plan for laparoscopic cholecystectomy with intraoperative cholangiogram as a means of reducing her risk for a future episode of pancreatitis and we plan to undertake this procedure tomorrow 03/08/2022. Please keep patient n.p.o. past midnight in anticipation of this procedure. I have previously authorized patient to advance her diet to regular low-fat diet given her clinical improvements today. Charges/Coding Visit Charges Inpatient E&M: 54274 Subs Hosp L2
[2022-03-07 11:06] VITALS: BP 111/72; PULSE 74; RESP 16; TEMP 37.1; O2SAT 100
--- NOTE | 2022-03-07 11:49 | PN.HOSP_ITS ---
Subjective Subjective Patient seen and examined. She had no active complaints today. Abdominal pain has improved. She had ERCP with removal of a stone in the bile duct yesterday. She is due for lap cholecystectomy tomorrow. Liver enzymes are trending downwards. Objective Data Objective Data Vital Signs: Vital Signs Temp Pulse Resp BP Pulse Ox O2 Del Method 98.8 F 74 16 111/72 100 Room Air 03/07/22 11:06 03/07/22 11:06 03/07/22 11:06 03/07/22 11:06 03/07/22 11:06 03/07/22 11:06 Oxygen Delivery Method Room Air Weight: 143 lb 4.807 oz Body Mass Index (BMI) 25.4 Intake & Output: Intake and Output for Last 24 Hours 03/05/22 03/06/22 03/07/22 23:59 23:59 23:59 Intake Total 210 / 210 5495.96 / 5495.96 3476.66 / 3476.66 Balance 210 / 210 5495.96 / 5495.96 3476.66 / 3476.66 Lab / Micro Data Result Diagrams: 03/07/22 05:50 03/07/22 05:50 Labs: Laboratory Results - last 24 hr 03/07/22 05:50: WBC 4.5, RBC 3.15 L, Hgb 10.0 L, Hct 30.5 L, MCV 96.8, MCH 31.7, MCHC 32.8, RDW Std Deviation 60.7 H, RDW Coeff of Micheal 17.2 H, Plt Count 147 L, MPV 10.7, Immature Gran % (Auto) 0.400, Neut % (Auto) 78.5 H, Lymph % (Auto) 13.7 L, [place] % (Auto) 7.2, Eos % (Auto) 0.0, Baso % (Auto) 0.2, Absolute Neuts (auto) 3.5, Absolute Lymphs (auto) 0.61 L, Nucleated RBC % 0 03/07/22 05:50: Sodium 140, Potassium 3.8, Chloride 111 H, Carbon Dioxide 16.0 L , Anion Gap 13, BUN 4 L, Creatinine 0.54 L, Estim Creat Clear Calc 115.70, Est GFR (MDRD) Af Amer 160, Est GFR (MDRD) Non-Af 133, BUN/Creatinine Ratio 7.4 L, Glucose 107 H, Calcium 7.0 L, Total Bilirubin 1.50 H, AST 169 H, ALT 93 H, Alkaline Phosphatase 72, Total Protein 5.2 L, Albumin 2.5 L, Globulin 2.7, Albumin/Globulin Ratio 0.9 Micro: Microbiology 03/05/22 18:14 Nasal Secretion SARS-CoV-2 Antigen (Rapid) - Final Radiography Diagnostic Testing: Radiology Impression ERCP X-Ray 03/06/22 14:25 IMPRESSION: Small filling defect in the distal portion of the common bile duct. Electronically Signed: Albert Corona MD at 8:37 EDT , Physical Exam Const alert, oriented x3 and no apparent distress HEENT head/scalp atraumatic, moist oral mucous membranes and oropharynx normal Head and Scalp: normocephalic Mouth: oral and palatal mucosa normal Eyes PERRL, EOMs intact bilaterally and conjunctivae normal Neck no lymphadenopathy, supple and no JVD Resp normal respiratory effort, no retractions, no use of accessory muscles and clear to auscultation bilaterally Cardio regular rate, regular rhythm, S1 normal heart sound, S2 normal heart sound and no murmurs GI normal to inspection, nondistended, normoactive bowel sounds, soft to palpation, non-tender and non-distended Extremity normal to inspection, full ROM and no clubbing, cyanosis or edema Neuro oriented x3, CN's II-XII intact bilaterally, moves all extremities, no focal motor deficits and no sensory deficits noted Sensorium / Orientation: awake and alert Motor Exam: strength 5/5 throughout Psych Psych Narrative: flat affect Assessment & Plan Assessment/Plan (1) Acute pancreatitis: PLAN: Plan #Acute pancreatitis * suspect gallbladder etiology. * gallbladder USG showed enlarged fatty liver with biliary sludge without any stones or acute cholecystitis * had ERCP with findings of choledocholithiasis and removal of stone with biliary sphincterotomy and balloon extraction; she had a temporary stent carlin pacheco in the common bile duct and ventral pancreatic duct * general surgery on board; GI also on board. * on IV zosyn * for lap cholecystectomy tomorrow * #Hypokalemia: resolved #Elevated liver enzymes * bilirubin has trended down to 1.5 from 2.9 yesterday after the ERCP * will trend * #Anxiety and depression; on fluoxetine, bupropion and alprazolam #Nicotine dependence: counseled to quit. On nicotine patch 21mg daily DVT prophylaxis: SCDs. Charges/Coding Visit Charges Inpatient E&M: 12795 Subs Hosp L2
[2022-03-07] MEDS: HYDROmorphone 0.5 MG/0.5 ML SYRINGE IV ×3 (14:22→23:05)
[2022-03-07 14:51] VITALS: BP 105/68; PULSE 85; RESP 16; TEMP 36.7; O2SAT 99
--- NOTE | 2022-03-07 15:12 | CASEMGMT ---
RYAN went to follow up with patient. She was visiting with her and 2 other individuals. RYAN will follow up with patient at a later time. Siena ALEMAN
--- NOTE | 2022-03-07 16:00 | CASEMGMT ---
SW went to patient's room and asked for visitors to leave so this display card writer could talk to patient privately. Visitors agreed to leave the room so this display card writer could speak to patient privately. Patient voiced she is doing better today and said I was hangry yesterday and that if she does not have food she gets upset. SW discussed the documentation that stated that patient drinks 1-2 ounces of vodka at night. Patient said I am done with that... with my condition it is not good for me. Patient was asked if she feels she has an AOD issue and she said no. SW offered patient information on AOD treatment and patient declined. Patient said that she is having surgery tomorrow with discharge on Friday. Patient said that she has never had SI/HI and denied current SI/HI. Patient said that she sees Dr. Juan Ramon Campa at [facility] every 3 months and he is a support. Patient said that she has just begun virtual therapy with [facility]. Patient has a female therapist but could not recall the therapist's name stating I am bad with names. Patient said that she sees the therapist weekly and schedules appointment as needed. Patient said that Dr. Campa and Dr. Villalba talk frequently to check in on patient and how she is doing. Patient said that she has appointment with Dr. Villalba on 03/14/22 and sees her every 3 months. No other services needed at this time. SW remains available if needs arise. Plan: Resources provided Siena ALEMAN
--- NOTE | 2022-03-07 16:37 | PN_ITS ---
Subjective Subjective Patient was seen and examined this morning at the bedside. She is not having any abdominal pain she is actually hungry. She is status post ERCP with sphincterotomy stone removal and stent placement into the pancreatic and common bile duct. Objective Data Objective Data Vital Signs: Vital Signs Temp Pulse Resp BP Pulse Ox O2 Del Method 98.1 F 85 16 105/68 99 Room Air 03/07/22 14:51 03/07/22 14:51 03/07/22 14:51 03/07/22 14:51 03/07/22 14:51 03/07/22 14:51 Oxygen Delivery Method Room Air Weight: 143 lb 4.807 oz Body Mass Index (BMI) 25.4 Intake & Output: Intake and Output for Last 24 Hours 03/05/22 03/06/22 03/07/22 23:59 23:59 23:59 Intake Total 210 / 210 5495.96 / 5495.96 4476.66 / 4476.66 Balance 210 / 210 5495.96 / 5495.96 4476.66 / 4476.66 Lab / Micro Data Result Diagrams: 03/07/22 05:50 03/07/22 05:50 Labs: Laboratory Results - last 24 hr 03/07/22 05:50: WBC 4.5, RBC 3.15 L, Hgb 10.0 L, Hct 30.5 L, MCV 96.8, MCH 31.7, MCHC 32.8, RDW Std Deviation 60.7 H, RDW Coeff of Micheal 17.2 H, Plt Count 147 L, MPV 10.7, Immature Gran % (Auto) 0.400, Neut % (Auto) 78.5 H, Lymph % (Auto) 13.7 L, [place] % (Auto) 7.2, Eos % (Auto) 0.0, Baso % (Auto) 0.2, Absolute Neuts (auto) 3.5, Absolute Lymphs (auto) 0.61 L, Nucleated RBC % 0 03/07/22 05:50: Sodium 140, Potassium 3.8, Chloride 111 H, Carbon Dioxide 16.0 L , Anion Gap 13, BUN 4 L, Creatinine 0.54 L, Estim Creat Clear Calc 115.70, Est GFR (MDRD) Af Amer 160, Est GFR (MDRD) Non-Af 133, BUN/Creatinine Ratio 7.4 L, Glucose 107 H, Calcium 7.0 L, Total Bilirubin 1.50 H, AST 169 H, ALT 93 H, Alkaline Phosphatase 72, Total Protein 5.2 L, Albumin 2.5 L, Globulin 2.7, Albumin/Globulin Ratio 0.9 Micro: Microbiology 03/05/22 18:14 Nasal Secretion SARS-CoV-2 Antigen (Rapid) - Final Radiography Diagnostic Testing: Radiology Impression ERCP X-Ray 03/06/22 14:25 IMPRESSION: Small filling defect in the distal portion of the common bile duct. Electronically Signed: Albert Corona MD at 8:37 EDT , Physical Exam Const alert, oriented x3 and no apparent distress HEENT head/scalp atraumatic, moist oral mucous membranes and oropharynx normal Head and Scalp: normocephalic Mouth: oral and palatal mucosa normal Eyes PERRL, EOMs intact bilaterally and conjunctivae normal Neck no lymphadenopathy, supple and no JVD Resp normal respiratory effort, no retractions, no use of accessory muscles and clear to auscultation bilaterally Cardio regular rate, regular rhythm, S1 normal heart sound, S2 normal heart sound and no murmurs GI normal to inspection, nondistended, normoactive bowel sounds, soft to palpation, non-tender and non-distended Extremity normal to inspection, full ROM and no clubbing, cyanosis or edema Neuro oriented x3, CN's II-XII intact bilaterally, moves all extremities, no focal motor deficits and no sensory deficits noted Sensorium / Orientation: awake and alert Motor Exam: strength 5/5 throughout Psych Psych Narrative: flat affect Assessment & Plan Assessment/Plan (1) Acute gallstone pancreatitis: PLAN: All her levels are trending down nicely and she is not having any more signs or symptoms of an ileus, gastroparesis or abdominal pain secondary to acute choledocholithiasis causing pancreatitis. (2) Abdominal pain, acute: PLAN: She says that her abdominal pain is completely resolved. She can have a r egular diet. She is scheduled for cholecystectomy tomorrow so she will need to be n.p.o. past midnight. Charges/Coding Visit Charges Inpatient E&M: 37842 Subs Hosp L2
[2022-03-07] MEDS: LORazepam 1 MG Tablet PO (18:30)
[2022-03-07] MEDS: Temazepam 15 MG Capsule PO (20:29)
[2022-03-07 20:44] VITALS: BP 101/73; PULSE 74; RESP 16; TEMP 36.4; O2SAT 100
[2022-03-07] MEDS: 0.9% Saline Lock 10 ML Syringe IV (23:05)
[2022-03-08] VITALS (10 sets, daily range): BP systolic 109–131; BP diastolic 73–99; PULSE 56–90; RESP 16–18; TEMP 36.6–37.3; O2SAT 96–100; BMI 28.3
[2022-03-08] MEDS: oxyCODONE 5 MG Tablet PO ×3 (00:28→20:25)
[2022-03-08] MEDS: LORazepam 1 MG Tablet PO (00:28)
[2022-03-08] MEDS: 0.9% Normal Saline 1,000 ML 200 ML IV ×4 (01:57→23:58)
--- NOTE | 2022-03-08 02:18 | NURSING ---
pt states she is getting anxious about procedure information and support given to pt about choley. pt states her iv keeps beeping and causing her anxiety and wants it off for a while paused iv until next atb is due. reminded pt about her deep breathing exercises, pt is coming prior to OR, pt had ativan. offered to walk w/pt in [place] but she states she already walked around her room. jewel inspector is getting pt a kpad to help w/her generalized discomfort. pt watching tv and on her phone at this time.
[2022-03-08] MEDS: 0.9% Saline Lock 10 ML Syringe IV ×4 (05:09→20:41)
[2022-03-08] MEDS: Ondansetron 4 MG/2 ML Vial IV (05:09)
[2022-03-08] MEDS: HYDROmorphone 0.5 MG/0.5 ML SYRINGE IV ×2 (05:09→12:40)
[2022-03-08 06:00] LABS: Absolute Lymphocyte Count 1.91 X10^3/uL (0.83-4.51); Absolute Neutrophil Count 2.7 X10^3/uL (2.0-7.7); Basophil# 0.03 X10^3/uL; Basophil% 0.6 % (0-1); Eosinophil# 0.01 X10^3/uL; Eosinophils% 0.2 % (0-5); Hematocrit 29.6 % (37-47); Hemoglobin 9.8 g/dL (12.0-15.0); Lymphocyte # 1.91 X10^3/ul (0.83-4.51); Lymphocyte % 38.9 % (19-41); Mean Corp Hgb Conc 33.1 g/dL (32-36); Mean Corpuscular Volume 96.7 fL (81-99); Mean Platelet Vol. 11.1 fl (6.2-12.0); Monocyte# 0.28 X10^3/uL; Monocyte% 5.7 % (0-10); NRBC Flagged by Analyzer 0 % (0-5); Neutrophil # 2.66 X10^3/uL (2.7-7.7); Neutrophil % 54.2 % (47-70); Platelet Count 150 K/mm3 (150-450); RBC Distribution Width CV 17.5 % (11.6-14.6); RBC Distribution Width SD 62.5 fl (35.1-43.9); Red Blood Count 3.06 M/mm3 (4.2-5.4); White Blood Count 4.9 K/mm3 (4.4-11.0)
[2022-03-08 06:13] LABS: Prothrombin Time (Protime)PT. 13.3 SECONDS (11.7-14.9)
[2022-03-08 06:14] LABS: Partial Thromboplast Time 25.7 Seconds (24.1-36.2)
[2022-03-08 06:33] LABS: ALB/GLOB Ratio 0.9 RATIO (0.9-2.4); AST(SGOT) 134 U/L (15-37); Alanine Aminotransfer ALT/SGPT 88 U/L (13-56); Albumin, Serum 2.4 g/dL (3.2-5.0); Alkaline Phosphatase 75 U/L (45-117); Anion Gap 7 (5-15); BUN 6 mg/dL (7-18); BUN/Creat Ratio 9.7 RATIO (10-20); Bilirubin, Direct 0.31 mg/dL (0.00-0.30); Calcium,Total 7.5 mg/dL (8.5-10.1); Chloride 114 mmol/L (98-107); Creatinine, Serum 0.62 mg/dL (0.55-1.02); EST Glomerular Filtration Rate 114 mL/min (>60); Est Glom Filt Rate - Afr Amer 138 mL/min (>60); Estimated Creatinine Clearance 100.77 ml/min; Globulin 2.7 g/dL (2.2-4.2); Glucose 96 mg/dL (74-106); Potassium 3.1 mmol/L (3.5-5.1); Protein, Total 5.1 g/dL (6.4-8.2); Sodium Level 142 mmol/L (136-145)
[2022-03-08 06:43] LABS: Lipase 1591 U/L (73-393)
--- NOTE | 2022-03-08 07:01 | NURSING ---
report given to trini in ac. pt being transported down for surgery, spouse with her
--- NOTE | 2022-03-08 07:30 | GALL_PTH ---
PATIENT: ROQUE VIVEROS LOC: MS3 U#:[id number] AGE/SX: 41/F ROOM: [facility] [place]05[place]: Dr. Jeanie Gil MD : 1980 BED: 1 DIS: 03/10/2022 SPEC #: [id number] RECD: 03/08/22 11:25 STATUS: BALDEMAR NEWTONJosias #: [id number] MICHAEL: 03/08/22 07:[address]: Eddie Paul DEPT: SURGICAL PATHOLOGY RECD BY: Cee Jeff ENTERED: 03/08/22 11:45 SP TYPE: ISA BAUM DR: MD Dr. Sheron Bangura MD Dr. Nana Yaa Koram, MD Tissues: Gallbladder, NOS Procedures: Surgery Specimen Level III HEADER OPERATION: Laparoscopic cholecystectomy with IOC PRE-OP DIAGNOSIS: Acute gallstone pancreatitis TISSUE SUBMITTED: Gallbladder MICROSCOPIC DIAGNOSIS Gallbladder, cholecystectomy: Acute and chronic cholecystitis and focal cholesterolosis. See comment. MARTINEZ:iqra 03/11/2022 COMMENT No stones are identified in the container or in the gallbladder. MICROSCOPIC DESCRIPTION Slides are reviewed. GROSS DESCRIPTION Received is one container labeled with the patient's name and designated gallbladder. The specimen consists of a gallbladder measuring 8 cm in length and up to 2.5 cm in diameter. The external surface is pink[place], smooth and glistening for the most part. Focally it is granular, hemorrhagic and contains cautery artifact. The gallbladder contains grayish, turbid bile. No stones are identified in the container or in the gallbladder. The mucosa is bile-stained and without any mass lesions. The gallbladder wall measures up to 0.3 cm in thickness. Sifter Operator sections from the gallbladder and the cystic duct are submitted in one cassette. / MARTINEZ:iqra 03/08/2022 TC:2 CPT: 50977
--- NOTE | 2022-03-08 07:31 | PN.SURG_ITS ---
Subjective Subjective Patient seen and examined during AM rounds. She reports that she is feeling somewhat short of breath and that her legs are tight making it difficult to walk. She denies significant abdominal pain. Objective Data Objective Data Vital Signs: Vital Signs Temp Pulse Resp BP Pulse Ox O2 Del Method 98.0 F 68 16 131/74 H 98 Room Air 03/08/22 07:21 03/08/22 07:21 03/08/22 07:21 03/08/22 07:21 03/08/22 07:21 03/08/22 07:21 Oxygen Delivery Method Room Air Weight: 160 lb Body Mass Index (BMI) 28.3 Intake & Output: Intake and Output for Last 24 Hours 03/06/22 03/07/22 03/08/22 23:59 23:59 23:59 Intake Total 5495.96 / 5495.96 6273.33 / 6273.33 1153.33 / 1153.33 Balance 5495.96 / 5495.96 6273.33 / 6273.33 1153.33 / 1153.33 Lab / Micro Data Result Diagrams: 03/08/22 04:45 03/08/22 04:45 Labs: Laboratory Results - last 24 hr 03/08/22 04:45: WBC 4.9, RBC 3.06 L, Hgb 9.8 L, Hct 29.6 L, MCV 96.7, MCH 32.0, MCHC 33.1, RDW Std Deviation 62.5 H, RDW Coeff of Micheal 17.5 H, Plt Count 150, MPV 11.1, Immature Gran % (Auto) 0.400, Neut % (Auto) 54.2, Lymph % (Auto) 38.9, [place] % (Auto) 5.7, Eos % (Auto) 0.2, Baso % (Auto) 0.6, Absolute Neuts (auto) 2.7, Absolute Lymphs (auto) 1.91, Nucleated RBC % 0 03/08/22 04:45: Sodium 142, Potassium 3.1 L, Chloride 114 H, Carbon Dioxide 21.0, Anion Gap 7, BUN 6 L, Creatinine 0.62, Estim Creat Clear Calc 100.77, Est GFR (MDRD) Af Amer 138, Est GFR (MDRD) Non-Af 114, BUN/Creatinine Ratio 9.7 L, Glucose 96, Calcium 7.5 L, Total Bilirubin 0.80, Direct Bilirubin 0.31 H, AST 134 H, ALT 88 H, Alkaline Phosphatase 75, Total Protein 5.1 L, Albumin 2.4 L, Globulin 2.7, Albumin/Globulin Ratio 0.9 03/08/22 04:45: PT 13.3, INR 1.0, APTT 25.7 03/08/22 04:45: Lipase 1591 H Micro: Microbiology 03/05/22 18:14 Nasal Secretion SARS-CoV-2 Antigen (Rapid) - Final Radiography Diagnostic Testing: Radiology Impression ERCP X-Ray 03/06/22 14:25 IMPRESSION: Small filling defect in the distal portion of the common bile duct. Electronically Signed: Albert Corona MD at 8:37 EDT , Physical Exam Const oriented x3 Constitutional Narrative: Anxious Resp normal respiratory effort GI GI Narrative: Nondistended soft, nontender to palpation Assessment & Plan Assessment/Plan (1) Acute gallstone pancreatitis: PLAN: Plan This is a 41-year-old female who is admitted for signs and symptoms of acute gallstone pancreatitis. Given her still rising lipase and bilirubin, gastroenterology takes patient for ERCP two days ago and found choledocholithiasis. Stone was extracted and patient's symptoms are improved. Patient has had further downtrending of her LFTs but a slight bump in her lipase. Encouragingly, her exam remains benign. She has some hypokalemia with this morning's chemistries and this is being replaced. Otherwise we will plan to proceed for laparoscopic cholecystectomy with possible intraoperative cholangiogram as previously scheduled. Charges/Coding Visit Charges Inpatient E&M: 06889 Subs Hosp L2
[2022-03-08] MEDS: Potassium Chloride 10mEq/100mL 10 MEQ/100 ML IV.SOLN. 100 MEQ IV BOLUS ×4 (07:40→12:14)
--- NOTE | 2022-03-08 08:05 | RAD_ITS ---
STUDY: INTRAOPERATIVE CHOLANGIOGRAM. REASON FOR EXAM: Female, 41 years old. LAP CARLOS A WITH IOC FLUOROSCOPY TIME (if supplied): ( 26.1 seconds ) minutes/seconds. A cine run of 128 images was submitted. TECHNIQUE: Intraoperative cholangiogram was performed by the surgeon. Contrast was injected. COMPARISON: Comparison is made with prior ERCP dated 03/06/2022. FINDINGS: A stent is seen within the common bile duct. The intrahepatic biliary ducts are unremarkable. RAD/Cholangiogram/ O R,Initial IMPRESSION: A stent is seen within the common bile duct. There is free flow of contrast into the duodenum. Electronically Signed: Albert Corona MD at 10:57 EDT ,
--- NOTE | 2022-03-08 09:36 | PCM.OPRPT ---
Report of Operation Date of Procedure: 03/08/22 Pre-Operative Diagnosis: 1. Gallstone pancreatitis Post-Operative Diagnosis: 1. Gallstone pancreatitis 2. Acute cholecystitis Surgery/Procedure Performed:: Laparoscopic cholecystectomy with intraoperative cholangiogram Description of Surgical Findings:: Attenuating gallbladder, dense adhesions near the gallbladder infundibulum, normal cholangiogram Surgeon: Eddie Paul information services manager: Ramón Diaz Type of Anesthesia: General/Supplemental Anesthesiologist: Urbano Godwin Specimen's removed: Gallbladder Drains: None Estimated Blood Loss (mL): 50 Description of Procedure: After proper identification in the preoperative holding area the patient was brought to the operating room where positioned supine on the operating room table. Preoperatively SCDs were placed and antibiotics were administered (and they had been ordered continuously on the floor). General anesthesia was then induced. Patient's abdomen was prepped and draped in usual sterile fashion. A formal timeout was conducted to confirm both patient and the procedure. Procedure was begun with a supraumbilical incision which was extended deeply down to the level of the fascia. The fascia was elevated and incised, as well as the peritoneum. A finger sweep was performed to ensure there were no underlying adhesions and a 12 mm balloon trocar was inserted. Pneumoperitoneum was established at 15 mmHg. 3 additional trocars were placed in the epigastrium (12 mm) and in the right upper quadrant (2 x 5 mm). Inspection of the peritoneum revealed no inadvertent injury to the viscera below. The gallbladder was visualized with a nondistended appearance and some significant inflammation as we approach the gallbladder infundibulum. The gallbladder fundus was then grasped and elevated cephalad. This required lysis of a number of rather dense adhesions between the gallbladder and the duodenum. Then, using careful dissection the peritoneum was opened and the structures of the hepatocystic triangle were delineated. Although I cleared all tissue between the cystic duct and the gallbladder fossa as well as from the base of the gallbladder to hilum, I did not visualize a cystic artery immediately. However, as I examined the medial aspect of the gallbladder fossa it was clear that there was an arterial structure running parallel to the fossa with a very distal branch to the gallbladder in the region of the gallbladder fundus. Once the critical view of safety was obtained, the cystic duct was singly clipped and the cystic duct was partially transected to create a ductotomy. A angiocatheter was placed in the right upper quadrant under laparoscopic visualization and a cholangiocatheter was fed into the proximal segment of the cystic duct and clipped into place. A cholangiogram was then obtained showing a standard length cystic duct flowing into a common bile duct with unobstructed antegrade flow of contrast into the duodenum. There was also retrograde flow through the common hepatic duct into the right and left hepatic ducts. Satisfied with this result, the proximal cystic duct was triply clipped and sharply divided. I then used electrocautery to begin taking the gallbladder off the gallbladder fossa. As we reached the distal branching point of the artery running parallel with the gallbladder fossa, the short arterial segment approaching the gallbladder was doubly clipped and divided. The gallbladder was then removed from the gallbladder fossa with the use of electrocautery. Selective electrocautery was used to obtain hemostasis in the gallbladder fossa. The gallbladder was placed in an Endo Catch bag and removed from the peritoneum. Morison's pouch was irrigated and the effluent was suctioned free of the peritoneum. Hemostasis was again confirmed. Pneumoperitoneum was evacuated and the fascia of the 12 mm supraumbilical port site was closed with #1Vicryl in a [id number] fashion (the 12 mm subxiphoid port site trocar had been introduced through the patient's falciform). A total of approximately 25 mL of 0.25% bupivacaine anesthetic was injected at the port sites for postoperative pain control. The skin of each port site was then closed in subcuticular fashion using 4-0 Monocryl. Steri-Strips and bandages were applied as dressings. Patient tolerated the procedure well without any apparent complications. On emergence from their anesthetic the patient was taken to PACU for ongoing recovery. Complications None Admit VTE Documentation VTE Present on Admission: Yes VTE Mechan Device Prophylaxis: SCD's Procedures Digestive 40xxx-49xxx: 55851 Laparo cholecystectomy/graph
[2022-03-08] MEDS: FLUoxetine 20 MG Capsule PO (11:17)
[2022-03-08] MEDS: buPROPion (XL) 300 MG TABLET.XL PO (11:17)
[2022-03-08] MEDS: ALPRAZolam 0.5 MG Tablet 1 MG PO (12:41)
[2022-03-08] MEDS: Acetaminophen 325 MG Tablet 650 MG PO ×2 (15:26→20:25)
--- NOTE | 2022-03-08 15:26 | PN.HOSP_ITS ---
Subjective Subjective Patient seen and examined. She is POD 0 for laparoscopic cholecystectomy. She does complain of some pain, but otherwise feels well. REview of systems is otherwise negative. Objective Data Objective Data Vital Signs: Vital Signs Temp Pulse Resp BP Pulse Ox O2 Del Method 98.5 F 64 16 119/76 97 Room Air 03/08/22 15:15 03/08/22 15:15 03/08/22 15:15 03/08/22 15:15 03/08/22 15:15 03/08/22 15:15 Oxygen Delivery Method Room Air Weight: 160 lb Body Mass Index (BMI) 28.3 Intake & Output: Intake and Output for Last 24 Hours 03/06/22 03/07/22 03/08/22 23:59 23:59 23:59 Intake Total 5495.96 / 5495.96 6273.33 / 6273.33 2563.33 / 2563.33 Balance 5495.96 / 5495.96 6273.33 / 6273.33 2563.33 / 2563.33 Lab / Micro Data Result Diagrams: 03/08/22 04:45 03/08/22 04:45 Labs: Laboratory Results - last 24 hr 03/08/22 04:45: WBC 4.9, RBC 3.06 L, Hgb 9.8 L, Hct 29.6 L, MCV 96.7, MCH 32.0, MCHC 33.1, RDW Std Deviation 62.5 H, RDW Coeff of Micheal 17.5 H, Plt Count 150, MPV 11.1, Immature Gran % (Auto) 0.400, Neut % (Auto) 54.2, Lymph % (Auto) 38.9, [place] % (Auto) 5.7, Eos % (Auto) 0.2, Baso % (Auto) 0.6, Absolute Neuts (auto) 2.7, Absolute Lymphs (auto) 1.91, Nucleated RBC % 0 03/08/22 04:45: Sodium 142, Potassium 3.1 L, Chloride 114 H, Carbon Dioxide 21.0, Anion Gap 7, BUN 6 L, Creatinine 0.62, Estim Creat Clear Calc 100.77, Est GFR (MDRD) Af Amer 138, Est GFR (MDRD) Non-Af 114, BUN/Creatinine Ratio 9.7 L, Glucose 96, Calcium 7.5 L, Total Bilirubin 0.80, Direct Bilirubin 0.31 H, AST 134 H, ALT 88 H, Alkaline Phosphatase 75, Total Protein 5.1 L, Albumin 2.4 L, Globulin 2.7, Albumin/Globulin Ratio 0.9 03/08/22 04:45: PT 13.3, INR 1.0, APTT 25.7 03/08/22 04:45: Lipase 1591 H Micro: Microbiology 03/05/22 18:14 Nasal Secretion SARS-CoV-2 Antigen (Rapid) - Final Radiography Diagnostic Testing: Radiology Impression Cholangiogram 03/08/22 08:05 IMPRESSION: A stent is seen within the common bile duct. There is free flow of contrast into the duodenum. Electronically Signed: Albert Corona MD at 10:57 EDT , Physical Exam Const alert, oriented x3 and no apparent distress HEENT head/scalp atraumatic, moist oral mucous membranes and oropharynx normal Eyes PERRL, EOMs intact bilaterally and conjunctivae normal Neck no lymphadenopathy, supple and no JVD Resp normal respiratory effort, no retractions, no use of accessory muscles and clear to auscultation bilaterally Cardio regular rate, regular rhythm, S1 normal heart sound, S2 normal heart sound and no murmurs GI normal to inspection, nondistended, normoactive bowel sounds, soft to palpation and non-distended GI Narrative: intact dressing over laparoscopic sites. mild tenderness with palpation Extremity normal to inspection, full ROM and no clubbing, cyanosis or edema Neuro oriented x3, CN's II-XII intact bilaterally, moves all extremities, no focal motor deficits and no sensory deficits noted Sensorium / Orientation: awake and alert Motor Exam: strength 5/5 throughout Psych Psych Narrative: flat affect Mood & Affect: anxious Assessment & Plan Assessment/Plan (1) Acute pancreatitis: PLAN: Plan #Acute pancreatitis * suspect gallbladder etiology. * gallbladder USG showed enlarged fatty liver with biliary sludge without any stones or acute cholecystitis * had ERCP with findings of choledocholithiasis and removal of stone with biliary sphincterotomy and balloon extraction; she had a temporary stent placed in the common bile duct and ventral pancreatic duct * had laparoscopic cholecystectomy today. Today is POD 0 * on IV zosyn * #Hypokalemia: resolved #Elevated liver enzymes * bilirubin has normalised. AST and ALT are also trending downwards. Will monitor * #Anxiety and depression; on fluoxetine, bupropion and alprazolam #Nicotine dependence: counseled to quit. On nicotine patch 21mg daily DVT prophylaxis: SCDs. Charges/Coding Visit Charges Inpatient E&M: 82595 Subs Hosp L2
--- NOTE | 2022-03-08 17:14 | PCM.PROGNOTE ---
Subjective Subjective Patient is not having much abdominal pain status post laparoscopic cholecystectomy and status post ERCP with bilateral stent placements. Objective Data Objective Data Vital Signs: Vital Signs Temp Pulse Resp BP Pulse Ox O2 Del Method 98.5 F 64 16 119/76 97 Room Air 03/08/22 15:15 03/08/22 15:15 03/08/22 15:15 03/08/22 15:15 03/08/22 15:15 03/08/22 15:15 Oxygen Delivery Method Room Air Weight: 160 lb Body Mass Index (BMI) 28.3 Intake & Output: Intake and Output for Last 24 Hours 03/06/22 03/07/22 03/08/22 23:59 23:59 23:59 Intake Total 5495.96 / 5495.96 6273.33 / 6273.33 3310.00 / 3310.00 Balance 5495.96 / 5495.96 6273.33 / 6273.33 3310.00 / 3310.00 Lab / Micro Data Result Diagrams: 03/08/22 04:45 03/08/22 04:45 Labs: Laboratory Results - last 24 hr 03/08/22 04:45: WBC 4.9, RBC 3.06 L, Hgb 9.8 L, Hct 29.6 L, MCV 96.7, MCH 32.0, MCHC 33.1, RDW Std Deviation 62.5 H, RDW Coeff of Micheal 17.5 H, Plt Count 150, MPV 11.1, Immature Gran % (Auto) 0.400, Neut % (Auto) 54.2, Lymph % (Auto) 38.9, [place] % (Auto) 5.7, Eos % (Auto) 0.2, Baso % (Auto) 0.6, Absolute Neuts (auto) 2.7, Absolute Lymphs (auto) 1.91, Nucleated RBC % 0 03/08/22 04:45: Sodium 142, Potassium 3.1 L, Chloride 114 H, Carbon Dioxide 21.0, Anion Gap 7, BUN 6 L, Creatinine 0.62, Estim Creat Clear Calc 100.77, Est GFR (MDRD) Af Amer 138, Est GFR (MDRD) Non-Af 114, BUN/Creatinine Ratio 9.7 L, Glucose 96, Calcium 7.5 L, Total Bilirubin 0.80, Direct Bilirubin 0.31 H, AST 134 H, ALT 88 H, Alkaline Phosphatase 75, Total Protein 5.1 L, Albumin 2.4 L, Globulin 2.7, Albumin/Globulin Ratio 0.9 03/08/22 04:45: PT 13.3, INR 1.0, APTT 25.7 03/08/22 04:45: Lipase 1591 H Micro: Microbiology 03/05/22 18:14 Nasal Secretion SARS-CoV-2 Antigen (Rapid) - Final Radiography Diagnostic Testing: Radiology Impression Cholangiogram 03/08/22 08:05 IMPRESSION: A stent is seen within the common bile duct. There is free flow of contrast into the duodenum. Electronically Signed: Albert Corona MD at 10:57 EDT , Physical Exam Const alert, oriented x3 and no apparent distress HEENT head/scalp atraumatic, moist oral mucous membranes and oropharynx normal Eyes PERRL, EOMs intact bilaterally and conjunctivae normal Neck no lymphadenopathy, supple and no JVD Resp normal respiratory effort, no retractions, no use of accessory muscles and clear to auscultation bilaterally Cardio regular rate, regular rhythm, S1 normal heart sound, S2 normal heart sound and no murmurs GI normal to inspection, nondistended, normoactive bowel sounds, soft to palpation and non-distended GI Narrative: intact dressing over laparoscopic sites. mild tenderness with palpation Extremity normal to inspection, full ROM and no clubbing, cyanosis or edema Neuro oriented x3, CN's II-XII intact bilaterally, moves all extremities, no focal motor deficits and no sensory deficits noted Sensorium / Orientation: awake and alert Motor Exam: strength 5/5 throughout Psych Psych Narrative: flat affect Mood & Affect: anxious Assessment & Plan Assessment/Plan (1) Acute gallstone pancreatitis: PLAN: Jaundice, cholestatic hepatitis secondary to choledocholithiasis acute gallstone pancreatitis status post ERCP with stone removal and stent placements into the pancreatic duct and common bile duct. She underwent successful cholecystectomy today. She is doing very well. Would recommend to progress her diet and if she still doing well she can be DC'd to home as per GI tomorrow. Charges/Coding Visit Charges Inpatient E&M: 14376 Subs Hosp L2
[2022-03-08] MEDS: oxyCODONE 5 MG Tablet 10 MG PO (21:00)
[2022-03-09] VITALS (8 sets, daily range): BP systolic 114–127; BP diastolic 73–92; PULSE 80–100; RESP 16–18; TEMP 36.7–37.1; O2SAT 96–100
[2022-03-09] MEDS: oxyCODONE 5 MG Tablet 10 MG PO ×6 (01:27→23:39)
[2022-03-09] MEDS: LORazepam 1 MG Tablet PO ×2 (01:30→17:43)
[2022-03-09] MEDS: 0.9% Normal Saline 1,000 ML 200 ML IV (05:30)
[2022-03-09 07:18] LABS: Basophil# 0.02 X10^3/uL; Basophil% 0.4 % (0-1); Eosinophil# 0.12 X10^3/uL; Eosinophils% 2.1 % (0-5); Hematocrit 30.1 % (37-47); Lymphocyte % 17.9 % (19-41); Mean Corp Hgb Conc 33.2 g/dL (32-36); Mean Corpuscular Hgb 31.7 pg (27.0-32.0); Mean Corpuscular Volume 95.6 fL (81-99); Mean Platelet Vol. 11.1 fl (6.2-12.0); Monocyte# 0.43 X10^3/uL; Monocyte% 7.7 % (0-10); NRBC Flagged by Analyzer 0 % (0-5); Neutrophil # 4.01 X10^3/uL (2.7-7.7); Neutrophil % 71.5 % (47-70); Platelet Count 151 K/mm3 (150-450); RBC Distribution Width CV 17.8 % (11.6-14.6); RBC Distribution Width SD 61.9 fl (35.1-43.9); Red Blood Count 3.15 M/mm3 (4.2-5.4); White Blood Count 5.6 K/mm3 (4.4-11.0)
[2022-03-09 07:36] LABS: ALB/GLOB Ratio 0.8 RATIO (0.9-2.4); AST(SGOT) 74 U/L (15-37); Alanine Aminotransfer ALT/SGPT 74 U/L (13-56); Albumin, Serum 2.5 g/dL (3.2-5.0); Alkaline Phosphatase 74 U/L (45-117); Anion Gap 6 (5-15); BUN 4 mg/dL (7-18); BUN/Creat Ratio 5.9 RATIO (10-20); Calcium,Total 7.9 mg/dL (8.5-10.1); Chloride 109 mmol/L (98-107); Creatinine, Serum 0.67 mg/dL (0.55-1.02); EST Glomerular Filtration Rate 103 mL/min (>60); Est Glom Filt Rate - Afr Amer 125 mL/min (>60); Estimated Creatinine Clearance 93.25 ml/min; Glucose 115 mg/dL (74-106); Potassium 2.8 mmol/L (3.5-5.1); Protein, Total 5.5 g/dL (6.4-8.2); Sodium Level 141 mmol/L (136-145)
[2022-03-09] MEDS: 0.9% Saline Lock 10 ML Syringe IV ×3 (08:14→13:46)
[2022-03-09] MEDS: HYDROmorphone 0.5 MG/0.5 ML SYRINGE IV (08:14)
[2022-03-09] MEDS: buPROPion (XL) 300 MG TABLET.XL PO (10:03)
[2022-03-09] MEDS: FLUoxetine 20 MG Capsule PO (10:03)
[2022-03-09] MEDS: Bisacodyl 10 MG Suppository RC (10:03)
[2022-03-09] MEDS: ALPRAZolam 0.5 MG Tablet 1 MG PO (11:00)
--- NOTE | 2022-03-09 11:38 | PCM.PN.SRG ---
Subjective Subjective Patient s/p laparoscopic cholecystectomy with high anxiety traits and complaint of pain despite oxyucodone and dilaudid Objective Data Objective Data Vital Signs: Vital Signs Temp Pulse Resp BP Pulse Ox O2 Del Method 98.4 F 84 18 127/86 H 96 Room Air 03/09/22 08:13 03/09/22 08:13 03/09/22 08:13 03/09/22 08:13 03/09/22 08:13 03/09/22 08:13 Oxygen Delivery Method Room Air Weight: 73.2 kg Body Mass Index (BMI) 28.3 Intake & Output: Intake and Output for Last 24 Hours 03/07/22 03/08/22 03/09/22 23:59 23:59 23:59 Intake Total 6273.33 / 6273.33 5400.33 / 5400.33 3323.33 / 3323.33 Balance 6273.33 / 6273.33 5400.33 / 5400.33 3323.33 / 3323.33 Lab / Micro Data Result Diagrams: 03/09/22 06:27 03/09/22 06:27 Labs: Laboratory Results - last 24 hr 03/09/22 06:27: WBC 5.6, RBC 3.15 L, Hgb 10.0 L, Hct 30.1 L, MCV 95.6, MCH 31.7, MCHC 33.2, RDW Std Deviation 61.9 H, RDW Coeff of Micheal 17.8 H, Plt Count 151, MPV 11.1, Immature Gran % (Auto) 0.400, Neut % (Auto) 71.5 H, Lymph % (Auto) 17.9 L, [place] % (Auto) 7.7, Eos % (Auto) 2.1, Baso % (Auto) 0.4, Absolute Neuts (auto) 4.0, Absolute Lymphs (auto) 1.00, Nucleated RBC % 0 03/09/22 06:27: Sodium 141, Potassium 2.8 L, Chloride 109 H, Carbon Dioxide 26.0, Anion Gap 6, BUN 4 L, Creatinine 0.67, Estim Creat Clear Calc 93.25, Est GFR (MDRD) Af Amer 125, Est GFR (MDRD) Non-Af 103, BUN/Creatinine Ratio 5.9 L, Glucose 115 H, Calcium 7.9 L, Total Bilirubin 1.00, AST 74 H, ALT 74 H, Alkaline Phosphatase 74, Total Protein 5.5 L, Albumin 2.5 L, Globulin 3.0, Albumin/Globulin Ratio 0.8 L Micro: Microbiology 03/05/22 18:14 Nasal Secretion SARS-CoV-2 Antigen (Rapid) - Final Radiography Diagnostic Testing: Radiology Impression Cholangiogram 03/08/22 08:05 IMPRESSION: A stent is seen within the common bile duct. There is free flow of contrast into the duodenum. Electronically Signed: Albert Corona MD at 10:57 EDT , Physical Exam Const alert and oriented x3 Neck supple Resp normal respiratory effort Effort and Inspection: able to speak in complete sentences GI GI Narrative: abdomen soft and benign, dressings intact with no seepage Vital Signs/Image Vital Signs/Narrative: Vital Signs Temp Pulse Resp BP Pulse Ox O2 Del Method 03/09/22 08:13 98.4 F 84 18 127/86 H 96 Room Air Assessment & Plan Assessment/Plan (1) Status post laparoscopic cholecystectomy: PLAN: Plan will attempt more pain control with toradol patient complaint of gas pains, will try simethicone patient can be discharged to home Hospital Course Consultations Consultations: Consultations 03/05/22 21:42 Consult: Gastroenterology Routine Consulting Provider: [facility] Reason for Consult: Elevated LFTs, bili, pancreatitis presentation with RUQ pain, GBUS not sera EMERGENT Consult: No Notified: Yes Date Notified: 03/05/22 Time Notified: 21:13 Method of Notification: ED Physician Initiated Consult: General Surgery Routine Consulting Provider: Eddie Paul Reason for Consult: RUQ pain, pancreatitis admit, Elevated LTF/bili also, GBUS not marked EMERGENT Consult: No Notified: Yes Date Notified: 03/05/22 Time Notified: 21:14 Method of Notification: ED Physician Initiated
[2022-03-09] MEDS: Ketorolac 30 MG/ML Syringe IV ×2 (12:17→21:56)
[2022-03-09] MEDS: Potassium Chloride 10mEq/100mL 10 MEQ/100 ML IV.SOLN. 100 MEQ IV BOLUS (13:46)
[2022-03-09] MEDS: Potassium Chloride 10mEq/100mL 10 MEQ/100 ML IV.SOLN. 80 MEQ IV BOLUS ×2 (15:00→16:22)
[2022-03-09] MEDS: Acetaminophen 325 MG Tablet 650 MG PO (17:43)
--- NOTE | 2022-03-09 17:52 | DS.PCM_ITS ---
Providers Date of Admission: 03/05/22 Date of Discharge: 03/10/22 Primary Care Physician: Dr. Sheron Villalba MD Consultations 03/05/22 21:42 Consult: Gastroenterology Routine Consulting Provider: [facility] Reason for Consult: Elevated LFTs, bili, pancreatitis presentation with RUQ pain, GBUS not sera EMERGENT Consult: No Notified: Yes Date Notified: 03/05/22 Time Notified: 21:13 Method of Notification: ED Physician Initiated Consult: General Surgery Routine Consulting Provider: Eddie Paul Reason for Consult: RUQ pain, pancreatitis admit, Elevated LTF/bili also, GBUS not marked EMERGENT Consult: No Notified: Yes Date Notified: 03/05/22 Time Notified: 21:14 Method of Notification: ED Physician Initiated Reason For Visit: ACUTE PANCREATITIS Diagnosis Discharge Diagnosis (1) Status post laparoscopic cholecystectomy: Status: Acute Code(s): Z90.49 - Acquired absence of other specified parts of digestive tract Plan #Acute pancreatitis * suspect gallbladder etiology. * gallbladder USG showed enlarged fatty liver with biliary sludge without any stones or acute cholecystitis * had ERCP with findings of choledocholithiasis and removal of stone with biliary sphincterotomy and balloon extraction; she had a temporary stent placed in the common bile duct and ventral pancreatic duct * had laparoscopic cholecystectomy today. Today is POD 0 * on IV zosyn * #Hypokalemia: resolved #Elevated liver enzymes * bilirubin has normalised. AST and ALT are also trending downwards. Will monitor * #Anxiety and depression; on fluoxetine, bupropion and alprazolam #Nicotine dependence: counseled to quit. On nicotine patch 21mg daily DVT prophylaxis: SCDs. Medications at Discharge Home Medications alprazolam 1 mg tablet 1 mg PO DAILY PRN Anxiety 07/04/21 bupropion HCl 300 mg 24 hr tablet, extended release 300 mg PO DAILY 07/04/21 fluoxetine 20 mg capsule 20 mg PO DAILY depression 01/05/22 albuterol sulfate 90 mcg/actuation aerosol inhaler 2 puff inhalation Q4H PRN Shortness Of Breath Or Wheezing 03/05/22 oxycodone 5 mg tablet 5 mg PO Q6H PRN pain 3 days #12 tabs 03/09/22 potassium chloride 20 mEq tablet,extended release 20 meq PO DAILY #10 tabs 03/10 Hospital Course Operations cholecystecomy and ERCP Procedures None Summary of Care Provided Minutes Spent on Discharge: 45 Hospital Course: Patient is a 41-year-old female with past medical history as outlined was admitted through the ED on 03/05/2022 with a complaint of nausea and abdominal pain which was mainly in the epigastrium and radiated to her right upper quadrant and also radiated to her right shoulder. She also had a low-grade fever. On admission liver enzymes were noted to be abnormal and lipase was also elevated. Bilirubin was elevated at 2.4 urinalysis showed 1+ bacteria. Gallbladder USG showed gallbladder with biliary sludge and enlarged fatty infiltrated liver. There was no evidence of shadowing stones or acute cholecystitis. She was admitted and managed for acute pancreatitis thought to be due to acute gallbladder pathology. She denied any copious alcohol intake and says she took like 1 drink every night to help with sleep. She was started on IV Zosyn. Surgery recommendations and kept NPO. She was placed on IV pain medication as well as Zofran. She had ERCP as liver enzymes were trending upwards and ERCP findings where choledocholithiasis in the stone was removed with biliary sphincterotomy and balloon extraction and she had a temporary stent placed in the common bile duct and ventral pancreatic duct. Liver enzymes trended downwards. She had laparoscopic cholecystectomy on 03/08/2022. Postop course was complicated by hypokalemia and potassium was replaced per protocol. Patient remained stable and liver enzymes normalized. She was discharged on 03/10/2022 and was given a prescription for p.o. oxycodone 5 mg every 6 hours as needed for total of 12 pills. She is to follow-up with her primary care doctor and gastroenterology as well as general surgery. Potassium was 3.4 at time of discharge. Patient seen and examined prior to discharge. She complained of not passing gas though her abdomen was not distended and she denied any significant belly pain. Review of systems otherwise negative. Labs and vitals reviewed. Home medication reviewed and reconciled. Physical Exam Const alert, oriented x3 and no apparent distress General Appearance: cooperative and comfortable Orientation / Consciousness: awake Exam Limitations: no limitations HEENT head/scalp atraumatic, moist oral mucous membranes and oropharynx normal Mouth: oral and palatal mucosa normal Eyes PERRL, EOMs intact bilaterally and conjunctivae normal Neck no lymphadenopathy, supple and no JVD Resp normal respiratory effort, no retractions, no use of accessory muscles and clear to auscultation bilaterally Cardio regular rate, regular rhythm, S1 normal heart sound, S2 normal heart sound and no murmurs GI normal to inspection, nondistended, normoactive bowel sounds, soft to palpation, non-tender and non-distended GI Narrative: intact dressing over laparoscopic sites. minimal tenderness, normal bowel sounds Extremity normal to inspection, full ROM and no clubbing, cyanosis or edema Skin no rashes or lesions noted Neuro oriented x3, CN's II-XII intact bilaterally, moves all extremities, no focal motor deficits and no sensory deficits noted Sensorium / Orientation: awake and alert Motor Exam: strength 5/5 throughout Psych affect normal Psych Narrative: flat affect Weight / BMI Weight Weight: 161 lb 6.054 oz Body Mass Index (BMI) 28.3 ABG / Lab / Microbiology Data Result Diagrams: 03/10/22 04:30 03/10/22 15:24 Laboratory: Laboratory Results - last 24 hr 03/09/22 06:27: WBC 5.6, RBC 3.15 L, Hgb 10.0 L, Hct 30.1 L, MCV 95.6, MCH 31.7, MCHC 33.2, RDW Std Deviation 61.9 H, RDW Coeff of Micheal 17.8 H, Plt Count 151, MPV 11.1, Immature Gran % (Auto) 0.400, Neut % (Auto) 71.5 H, Lymph % (Auto) 17.9 L, [place] % (Auto) 7.7, Eos % (Auto) 2.1, Baso % (Auto) 0.4, Absolute Neuts (auto) 4.0, Absolute Lymphs (auto) 1.00, Nucleated RBC % 0 03/09/22 06:27: Sodium 141, Potassium 2.8 L, Chloride 109 H, Carbon Dioxide 26.0, Anion Gap 6, BUN 4 L, Creatinine 0.67, Estim Creat Clear Calc 93.25, Est GFR (MDRD) Af Amer 125, Est GFR (MDRD) Non-Af 103, BUN/Creatinine Ratio 5.9 L, Glucose 115 H, Calcium 7.9 L, Total Bilirubin 1.00, AST 74 H, ALT 74 H, Alkaline Phosphatase 74, Total Protein 5.5 L, Albumin 2.5 L, Globulin 3.0, Albumin/Globulin Ratio 0.8 L Microbiology: Microbiology 03/05/22 18:14 Nasal Secretion SARS-CoV-2 Antigen (Rapid) - Final D/C Instructions Discharge Diet: Low fat / Low cholesterol Discharge Activity: Return to Normal Activity Weight Bearing Status: Weight bearing as tolerated Call your doctor if your incision/area has: Continuous Slow Oozing, Sudden Increased Bleeding, Increased Pain/ Swelling, Increased Redness, Foul Smelling Discharge and Swelling at the incision site Call your doctor if you observe: Fever of 101 or Higher and Uncontrolled pain Meaningful Use Info Meaningful Use Diagnoses (Choose all that apply): None applicable Discharge Plan Admission Admit Date/Time: 03/05/22 21:13 Primary Reason for Your Visit: acute gallstone pancreatitis Attending Provider: Jeanie Gil Primary Care Provider: Sheron Villalba Consulting Providers: Eddie Paul ; Mildred Liu Instructions Patient Instructions: What Are Gallstones, Understanding Pancreatitis, ERCP Dc Discharge Orders/Prescriptions Prescriptions: New oxycodone 5 mg tablet 5 mg PO Q6H PRN (Reason: pain) 3 Days Qty: 12 0RF potassium chloride 20 mEq tablet extended release 20 meq PO DAILY Qty: 10 0RF Continued alprazolam 1 mg tablet 1 mg PO DAILY PRN (Reason: Anxiety) bupropion HCl 300 mg tablet extended release 24 hr 300 mg PO DAILY fluoxetine 20 mg capsule 20 mg PO DAILY Label Comments: TAKE 1 CAPSULE BY MOUTH ONCE DAILY albuterol sulfate 90 mcg/actuation HFA aerosol inhaler 2 puff INHALATION Q4H PRN (Reason: Shortness Of Breath Or Wheezing) Label Comments: INHALE 2 PUFFS INSTRUCTED EVERY 4 HOURS NEEDED FOR WHEEZING/SHORTNESS OF BREATH. Referrals / Follow Up: Sheron Villalba MD [Primary Care Provider] - Eddie Paul MD [Med Staff - Active Staff] - Within 1 Week Maury Hagen DO [Med Staff - Active Staff] - Within 2 Weeks Disposition Disposition (needs filled in before D/C Order can be placed): Home, Self Care
[2022-03-09 17:59] LABS: Potassium 2.9 mmol/L (3.5-5.1)
[2022-03-09] MEDS: Potassium Chloride Oral Tablet 20 MEQ 60 MEQ PO (18:01)
--- NOTE | 2022-03-09 18:06 | PN.HOSP_ITS ---
Subjective Subjective Patient seen and examined. She still complained of some abdominal pain at site of incisions, but she was very comfortably lying in bed. She said she hadnt passed any gas, but denied any nausea, vomiting or abdominal distension. REview of systems is otherwise negative. Magnesium is 2.8 this morning. Objective Data Objective Data Vital Signs: Vital Signs Temp Pulse Resp BP Pulse Ox O2 Del Method 98.0 F 90 16 119/73 99 Room Air 03/09/22 17:35 03/09/22 17:35 03/09/22 17:35 03/09/22 17:35 03/09/22 17:35 03/09/22 17:35 Oxygen Delivery Method Room Air Weight: 161 lb 6.054 oz Body Mass Index (BMI) 28.3 Intake & Output: Intake and Output for Last 24 Hours 03/07/22 03/08/22 03/09/22 23:59 23:59 23:59 Intake Total 6273.33 / 6273.33 5400.33 / 5400.33 3576.08 / 3576.08 Balance 6273.33 / 6273.33 5400.33 / 5400.33 3576.08 / 3576.08 Lab / Micro Data Result Diagrams: 03/09/22 06:27 03/09/22 06:27 Labs: Laboratory Results - last 24 hr 03/09/22 05:13: Potassium 2.9 L 03/09/22 06:27: WBC 5.6, RBC 3.15 L, Hgb 10.0 L, Hct 30.1 L, MCV 95.6, MCH 31.7, MCHC 33.2, RDW Std Deviation 61.9 H, RDW Coeff of Micheal 17.8 H, Plt Count 151, MPV 11.1, Immature Gran % (Auto) 0.400, Neut % (Auto) 71.5 H, Lymph % (Auto) 17.9 L, [place] % (Auto) 7.7, Eos % (Auto) 2.1, Baso % (Auto) 0.4, Absolute Neuts (auto) 4.0, Absolute Lymphs (auto) 1.00, Nucleated RBC % 0 03/09/22 06:27: Sodium 141, Potassium 2.8 L, Chloride 109 H, Carbon Dioxide 26.0, Anion Gap 6, BUN 4 L, Creatinine 0.67, Estim Creat Clear Calc 93.25, Est GFR (MDRD) Af Amer 125, Est GFR (MDRD) Non-Af 103, BUN/Creatinine Ratio 5.9 L, Glucose 115 H, Calcium 7.9 L, Total Bilirubin 1.00, AST 74 H, ALT 74 H, Alkaline Phosphatase 74, Total Protein 5.5 L, Albumin 2.5 L, Globulin 3.0, Albumin/Globulin Ratio 0.8 L Micro: Microbiology 03/05/22 18:14 Nasal Secretion SARS-CoV-2 Antigen (Rapid) - Final Physical Exam Const alert, oriented x3 and no apparent distress General Appearance: cooperative and comfortable Orientation / Consciousness: awake Exam Limitations: no limitations HEENT head/scalp atraumatic, moist oral mucous membranes and oropharynx normal Eyes PERRL, EOMs intact bilaterally and conjunctivae normal Neck no lymphadenopathy, supple and no JVD Resp normal respiratory effort, no retractions, no use of accessory muscles and clear to auscultation bilaterally Cardio regular rate, regular rhythm, S1 normal heart sound, S2 normal heart sound and no murmurs GI normal to inspection, nondistended, normoactive bowel sounds, soft to palpation, non-tender and non-distended GI Narrative: intact dressing over laparoscopic sites. minimal tenderness, normal bowel sounds Extremity normal to inspection, full ROM and no clubbing, cyanosis or edema Skin no rashes or lesions noted Neuro oriented x3, CN's II-XII intact bilaterally, moves all extremities, no focal motor deficits and no sensory deficits noted Sensorium / Orientation: awake and alert Motor Exam: strength 5/5 throughout Psych affect normal Psych Narrative: flat affect Mood & Affect: anxious Assessment & Plan Assessment/Plan (1) Status post laparoscopic cholecystectomy: PLAN: Plan #Acute pancreatitis * suspect gallbladder etiology. * gallbladder USG showed enlarged fatty liver with biliary sludge without any st ones or acute cholecystitis * had ERCP with findings of choledocholithiasis and removal of stone with biliary sphincterotomy and balloon extraction; she had a temporary stent placed in the common bile duct and ventral pancreatic duct * had laparoscopic cholecystectomy and today is POD 1. * on IV zosyn * #Hypokalemia: potassium is 2.8 today. WIll replace per protocol and trend. Check magnesium level #Elevated liver enzymes * bilirubin has normalised. AST and ALT are also trending downwards. Will mon itor * #Anxiety and depression; on fluoxetine, bupropion and alprazolam #Nicotine dependence: counseled to quit. On nicotine patch 21mg daily DVT prophylaxis: SCDs. Disposition: for likely dc home tomorrow. Charges/Coding Visit Charges Inpatient E&M: 53596 Subs Hosp L2
[2022-03-09] MEDS: Potassium Chloride 10mEq/100mL 10 MEQ/100 ML IV.SOLN. 75 MEQ IV BOLUS (20:25)
[2022-03-09] MEDS: Senna/Docusate Sodium 1 Tablet 2 TABLET PO (20:42)
[2022-03-09] MEDS: Magnesium Sulfate 4gm/100mL 4 GM/100 ML IV.SOLN. IV (21:58)
[2022-03-10 03:30] VITALS: BP 110/69; PULSE 74; RESP 16; TEMP 37.2; O2SAT 98
[2022-03-10] MEDS: oxyCODONE 5 MG Tablet 10 MG PO ×3 (04:30→12:44)
[2022-03-10 04:52] LABS: Absolute Lymphocyte Count 0.77 X10^3/uL (0.83-4.51); Absolute Neutrophil Count 4.1 X10^3/uL (2.0-7.7); Basophil# 0.02 X10^3/uL; Basophil% 0.4 % (0-1); Hematocrit 30.1 % (37-47); Lymphocyte # 0.77 X10^3/ul (0.83-4.51); Lymphocyte % 14.1 % (19-41); Mean Corp Hgb Conc 33.2 g/dL (32-36); Mean Corpuscular Hgb 31.3 pg (27.0-32.0); Mean Corpuscular Volume 94.4 fL (81-99); Mean Platelet Vol. 10.5 fl (6.2-12.0); Monocyte# 0.59 X10^3/uL; Monocyte% 10.8 % (0-10); NRBC Flagged by Analyzer 0 % (0-5); Neutrophil # 4.07 X10^3/uL (2.7-7.7); Neutrophil % 74.2 % (47-70); Platelet Count 177 K/mm3 (150-450); RBC Distribution Width CV 17.4 % (11.6-14.6); RBC Distribution Width SD 60.7 fl (35.1-43.9); Red Blood Count 3.19 M/mm3 (4.2-5.4); White Blood Count 5.5 K/mm3 (4.4-11.0)
[2022-03-10 05:21] LABS: ALB/GLOB Ratio 0.7 RATIO (0.9-2.4); AST(SGOT) 51 U/L (15-37); Alanine Aminotransfer ALT/SGPT 64 U/L (13-56); Albumin, Serum 2.5 g/dL (3.2-5.0); Alkaline Phosphatase 70 U/L (45-117); Anion Gap 7 (5-15); BUN 3 mg/dL (7-18); BUN/Creat Ratio 5.1 RATIO (10-20); Calcium,Total 8.4 mg/dL (8.5-10.1); Chloride 105 mmol/L (98-107); Creatinine, Serum 0.59 mg/dL (0.55-1.02); EST Glomerular Filtration Rate 120 mL/min (>60); Est Glom Filt Rate - Afr Amer 145 mL/min (>60); Globulin 3.4 g/dL (2.2-4.2); Glucose 93 mg/dL (74-106); Magnesium 1.8 mg/dL (1.6-2.6); Potassium 2.9 mmol/L (3.5-5.1); Protein, Total 5.9 g/dL (6.4-8.2); Sodium Level 139 mmol/L (136-145)
[2022-03-10] MEDS: Ketorolac 30 MG/ML Syringe IV ×2 (06:36→14:42)
[2022-03-10 08:12] VITALS: BP 116/70; PULSE 74; RESP 16; TEMP 37; O2SAT 97
[2022-03-10] MEDS: Potassium Chloride Oral Tablet 20 MEQ 60 MEQ PO (08:15)
[2022-03-10] MEDS: Potassium Chloride 10mEq/100mL 10 MEQ/100 ML IV.SOLN. 75 MEQ IV BOLUS ×4 (08:24→12:42)
--- NOTE | 2022-03-10 09:41 | PCM.PN.SRG ---
Subjective Subjective patient states that she feels that pain is under control with Percocet she is found to be hypokalemia and hypomagnesia and is getting IV supplementation Objective Data Objective Data Vital Signs: Vital Signs Temp Pulse Resp BP Pulse Ox O2 Del Method 98.6 F 74 16 116/70 97 Room Air 03/10/22 08:12 03/10/22 08:12 03/10/22 08:12 03/10/22 08:12 03/10/22 08:12 03/10/22 08:12 Oxygen Delivery Method Room Air Weight: 69.2 kg Body Mass Index (BMI) 28.3 Intake & Output: Intake and Output for Last 24 Hours 03/08/22 03/09/22 03/10/22 23:59 23:59 23:59 Intake Total 5400.33 / 5400.33 4583.33 / 4883.33 550 / 550 Balance 5400.33 / 5400.33 4583.33 / 4883.33 550 / 550 Lab / Micro Data Attestation: I reviewed the patient's lab results. Result Diagrams: 03/10/22 04:30 03/10/22 04:30 Labs: Laboratory Results - last 24 hr 03/09/22 17:00: Potassium 2.9 L 03/09/22 17:21: Magnesium 1.0 L 03/10/22 04:30: WBC 5.5, RBC 3.19 L, Hgb 10.0 L, Hct 30.1 L, MCV 94.4, MCH 31.3, MCHC 33.2, RDW Std Deviation 60.7 H, RDW Coeff of Micheal 17.4 H, Plt Count 177, MPV 10.5, Immature Gran % (Auto) 0.500, Neut % (Auto) 74.2 H, Lymph % (Auto) 14.1 L, [place] % (Auto) 10.8 H, Eos % (Auto) 0.0, Baso % (Auto) 0.4, Absolute Neuts (auto) 4.1, Absolute Lymphs (auto) 0.77 L, Nucleated RBC % 0 03/10/22 04:30: Sodium 139, Potassium 2.9 L, Chloride 105, Carbon Dioxide 27.0, Anion Gap 7, BUN 3 L, Creatinine 0.59, Estim Creat Clear Calc 105.90, Est GFR (MDRD) Af Amer 145, Est GFR (MDRD) Non-Af 120, BUN/Creatinine Ratio 5.1 L, Glucose 93, Calcium 8.4 L, Magnesium 1.8, Total Bilirubin 1.30 H, AST 51 H, ALT 64 H, Alkaline Phosphatase 70, Total Protein 5.9 L, Albumin 2.5 L, Globulin 3.4, Albumin/Globulin Ratio 0.7 L Micro: Microbiology 03/05/22 18:14 Nasal Secretion SARS-CoV-2 Antigen (Rapid) - Final Physical Exam Const alert and oriented x3 Resp normal respiratory effort Effort and Inspection: able to speak in complete sentences GI GI Narrative: abdomen is soft and benign, dressings intact Assessment & Plan Assessment/Plan (1) Status post laparoscopic cholecystectomy: PLAN: can d/c to home when medically feasible patient to follow up with her surgeon as an outpatient
[2022-03-10] MEDS: Magnesium Sulfate 4gm/100mL 4 GM/100 ML IV.SOLN. IV (09:52)
[2022-03-10] MEDS: FLUoxetine 20 MG Capsule PO (09:53)
[2022-03-10] MEDS: buPROPion (XL) 300 MG TABLET.XL PO (09:53)
[2022-03-10 14:40] VITALS: BP 100/65; PULSE 89; RESP 16; TEMP 37.1; O2SAT 99
[2022-03-10] MEDS: 0.9% Saline Lock 10 ML Syringe IV (14:41)
[2022-03-10 15:40] LABS: Potassium 3.4 mmol/L (3.5-5.1)
[2022-03-10] MEDS: ALPRAZolam 0.5 MG Tablet 1 MG PO (16:07)
== END 2022-03-10 16:45 | disposition home or self-care (01) | DRG 417 ==
LOC: ED 19:54 → MS3 21:21
PROVIDERS: Anesthesiology; Internal Medicine Gastroenterology; Surgery; Admitting Provider Family Medicine; Emergency Provider Emergency Medicine; PCP Internal Medicine; Visit Provider Student in an Organized Health Care Education/Training Program
PROC: 0FC98ZZ Extirpation of Matter from Common Bile Duct, Via Natural or Artificial Opening Endoscopic (ICD-10-PCS; CPT 43260; principal; 2022-03-06 12:40)
PROC: 0FT44ZZ Resection of Gallbladder, Percutaneous Endoscopic Approach (ICD-10-PCS; CPT 47610; principal; 2022-03-08 07:10)
DX: K80.47 Calculus of bile duct with acute and chronic cholecystitis with obstruction (principal); K85.10 Biliary acute pancreatitis without necrosis or infection; K76.0 Fatty (change of) liver, not elsewhere classified; E06.3 Autoimmune thyroiditis; F41.9 Anxiety disorder, unspecified; F17.290 Nicotine dependence, other tobacco product, uncomplicated; J45.909 Unspecified asthma, uncomplicated; E87.6 Hypokalemia; F32.A Depression, unspecified; Z79.899 Other long term (current) drug therapy
CPT/HCPCS: 36415; 74300; 74328; 76000; 76705; 80048; 80053; 80076; 80307; 81001; 82077; 83690; 83735; 84132; 84703; 85025; 85610; 85730; 87811; 88304; 93005; 99284; 99406; J7030; J7120; A4216; J2405

== ENCOUNTER 2022-04-02 14:47 | Emergency (ER) | payer SELFPAY ==
[2022-04-02 14:47] VITALS: BP 112/82; PULSE 104; RESP 18; TEMP 36; O2SAT 100; BMI 25.7
[2022-04-02 15:00] VITALS: BP 112/82; PULSE 104; RESP 18; TEMP 36; O2SAT 100
--- NOTE | 2022-04-02 15:14 | CT_ITS ---
STUDY: CT ABDOMEN AND PELVIS WITH CONTRAST REASON FOR EXAM: Female, 41 years old. abd pain -- cholecystectomy 03/08 RADIATION DOSAGE (If Supplied By Facility): CTDIvol = ( 15.21 ) mGy, DLP = ( 668.09 ) mGycm TECHNIQUE: Transaxial images were obtained from the dome of the diaphragm to the symphysis pubis without oral contrast. IV 100mL Isovue-300 was administered. Sagittal and coronal images were reconstructed. Individualized dose optimization techniques were used for this CT. COMPARISON: Gallbladder ultrasound 03/08/[address] abdomen and pelvis 12/31/2021 report only FINDINGS: The visualized lung bases are unremarkable. The visualized portions of the heart are within normal limits. Normal liver. Gallbladder surgically absent. Biliary stent within the common bile duct. Normal spleen. Normal pancreas. Normal bilateral adrenal glands. Normal right kidney. Normal left kidney. Normal visualized stomach. Normal small intestine. Increased stool throughout the colon. The appendix is visualized and appears normal. Normal abdominal aorta. Normal inferior vena cava. Normal retroperitoneum. Normal urinary bladder. Uterus is normal. Bilateral tubal ligation clips noted. Septated right adnexal cystic lesion measuring 6.1 x 3.8 cm. Fat-containing umbilical hernia. Plates and screws transfix the left sacroiliac joint CT/Abdomen/Pelvis W IV Cont ONLY IMPRESSION: Right adnexal cyst as above. Pelvic ultrasound recommended if torsion is suspected. ACR White Paper guidelines (Newton, et. al. JACR 2020;17(2):248-254) recommend pelvic ultrasound follow-up in 6-12 months. Increased stool. Biliary stent. Electronically Signed: Anil Cantu MD at 16:25 EDT ,
--- NOTE | 2022-04-02 15:16 | EX.ED.DYSGE1 ---
HPI History of Present Illness Chief Complaint: Abd Pain Informant: patient Onset/Context/Timing Onset: Weeks Context: Gradual Onset Timing: Waxes and wanes Current Severity: Mild Maximum Severity: Moderate Narrative Narrative: Patient presents secondary to fever and abdominal pain. She had a cholecystectomy performed on March [address] Paul. She states has been having some intermittent abdominal pain since that time. It is recently worsened and she points to the mid abdomen on the lateral sides and describing the worst area of pain. She does have some pain across the epigastric region. She states of the past 4 to 5 days she has had a fever up to 102. She has had cough and congestion. She did not take a COVID test. She spoke with her GI doctor this morning, Dr. Hagen. He obtained blood work and advised her to come to the emergency room. CBC is normal at 10 with 75% neutrophils. Chemistry studies are unremarkable other than a potassium low at 3.0. CRP is elevated at 172 and sed rate is 89. LFTs are normal. PFSH PFSH Medical History Alcohol use Anxiety and depression Asthma Memo's thyroiditis Hx of fracture of pelvis Tobacco use Home Medications alprazolam 1 mg tablet 1 mg PO DAILY PRN Anxiety 07/04/21 [History Last Taken Unknown] bupropion HCl 300 mg 24 hr tablet, extended release 300 mg PO DAILY 07/04/21 [History Last Taken Unknown] fluoxetine 20 mg capsule 20 mg PO DAILY depression 01/05/22 [History Last Taken Unknown] albuterol sulfate 90 mcg/actuation aerosol inhaler 2 puff inhalation Q4H PRN Shortness Of Breath Or Wheezing 03/05/22 [History Last Taken Unknown] potassium chloride 20 mEq tablet,extended release 20 meq PO DAILY #10 tabs 03/10/22 [Rx Last Taken Unknown] benzonatate 200 mg capsule 200 mg PO BID PRN cough #10 caps 04/02/22 [Rx Last Taken Unknown] ondansetron 4 mg disintegrating tablet 4 mg PO Q8H PRN nausea and vomiting #10 tabs 04/02/22 [Rx Last Taken Unknown] potassium chloride 20 mEq tablet,extended release 20 meq PO BID #6 tabs 04/02/22 [Rx Last Taken Unknown] tramadol 50 mg tablet 50 mg PO Q6H PRN pain #10 tabs 04/02/22 [Rx Last Taken Unknown] Allergy/AdvReac Type Severity Reaction Status Date / Time No Known Allergies Allergy Verified 04/02/22 14:50 Family History Father Heart disease Mother CVA (cerebral vascular accident) Surgical History H/O tubal ligation History of pelvic surgery Hx of section Status post laparoscopic cholecystectomy Social History household members: family and children Smoking Status: Current every day smoker tobacco type: e-cigarettes Electronic Cigarette Use: with nicotine alcohol intake: current alcohol intake frequency: 0-2 drinks per day details: Drinks 1 vodka drink 1-2 ounces up to once q HS. substance use type: does not use ROS ROS ED Constitutional Constitutional ED: Reports fever(s); Denies chills Eyes Eyes: Denies change in vision or discharge from eye(s) ENT ENT ED: Denies discharge from eye(s), rhinorrhea or sore throat Cardiovascular Cardiovascular: Denies chest pain or palpitations Respiratory/Chest Respiratory/Chest: Reports cough and dyspnea Gastrointestinal Gastrointestinal: Reports abdominal pain; Denies diarrhea, nausea or vomiting Genitourinary Genitourinary ED: Denies difficulty urinating or dysuria Musculoskeletal Musculoskeletal: Reports myalgias; Denies back pain or extremity pain Integumentary Denies Abrasions or rash Neurologic Neurologic: Denies headache(s) or weakness Psychiatric Psychiatric: Denies anxiety or depression Allergic/Immunologic Allergic/Immunologic ED: Denies lip swelling or urticaria EXAM Physical Exam Const Vital Signs: 04/02/22 14:47 04/02/22 15:00 Temperature 96.8 F L 96.8 F L Temperature Source Temporal Temporal Pulse Rate 104 H 104 H Respiratory Rate 18 18 Blood Pressure 112/82 H 112/82 H Blood Pressure Mean 92 92 Pulse Ox 100 100 Oxygen Delivery Method Room Air Room Air Positive well nourished and well developed General Appearance ED: well developed HEENT Reports normocephalic and head/scalp atraumatic Eyes PERRL and EOMs intact bilaterally Neck supple Chest Wall inspection of chest normal and palpation of chest normal Resp normal respiratory effort and clear to auscultation bilaterally Cardio regular rate and regular rhythm GI non-tender GI Narrative: Surgical incisions healing well. Auscultation: hypoactive bowel sounds Palpation: soft Extremity normal to inspection Neuro oriented x3 and no sensory deficits noted Sensorium / Orientation: alert Motor Exam: strength 5/5 throughout Psych mental status grossly normal Skin no rashes or lesions noted MDM MDM MDM Narrative Medical decision making narrative: Patient's lab work drawn earlier today is reviewed. White count is normal at 10. 75% neutrophils noted. Chemistry studies and LFTs remarkable only for potassium of 3.0. Sed rate and CRP are both slightly elevated. Chest x-ray obtained today along with COVID test. CT scan of the abdomen pelvis with IV contrast ordered. Lab Data Labs: Rapid COVID: Negative Radiography Chest X-Ray - ED: 1 View, Read by ED Physician, Normal, Heart, Lungs and Mediastinum Diagnostic Testing: Clinical Impression(s) from Imaging Studies Abdomen/Pelvis CT 04/02/22 15:14 IMPRESSION: Right adnexal cyst as above. Pelvic ultrasound recommended if torsion is suspected. ACR White Paper guidelines (Newton, et. al. JACR 2020;17(2):248-254) recommend pelvic ultrasound follow-up in 6-12 months. Increased stool. Biliary stent. Electronically Signed: Anil Cantu MD at 16:25 EDT Reading Location ID and State: [facility] / [place] , Service support , Treatment and Re-Evaluation Narrative: Portable chest x-ray per my interpretation reveals no infiltrate. CT scan of the abdomen pelvis reveals a right adnexal cyst. Biliary stent is in good position. No sign of acute infection. Test results are discussed with the patient. Her COVID test today is negative. She was advised to retest in a couple days if she continues to have symptoms. I will write her for his oral potassium for a few days at home. I will also write her for some Zofran and tramadol to help with pain and nausea along with Tessalon Perles to help control her cough. I believe she has a viral URI and the frequency of cough is increasing her abdominal pain from her recent surgery. I do not believe she needs antibiotics at this time. Return instructions have been provided. Discharge Plan Triage Chief Complaint: Abd Pain ED Provider: Jackie Harley Dx/Rx/DC Orders Clinical Impression: URI (upper respiratory infection), Abdominal pain, Hypokalemia Instructions: ED Abdominal Pain Unkn Cause Fem, ED URI, Viral, No Abx (Adult) Prescriptions: New potassium chloride 20 mEq tablet extended release 20 meq PO BID Qty: 6 0RF benzonatate 200 mg capsule 200 mg PO BID PRN (Reason: cough) Qty: 10 0RF ondansetron 4 mg tablet,disintegrating 4 mg PO Q8H PRN (Reason: nausea and vomiting) Qty: 10 0RF tramadol 50 mg tablet 50 mg PO Q6H PRN (Reason: pain) Qty: 10 0RF No Action alprazolam 1 mg tablet 1 mg PO DAILY PRN (Reason: Anxiety) bupropion HCl 300 mg tablet extended release 24 hr 300 mg PO DAILY fluoxetine 20 mg capsule 20 mg PO DAILY Label Comments: TAKE 1 CAPSULE BY MOUTH ONCE DAILY albuterol sulfate 90 mcg/actuation HFA aerosol inhaler 2 puff INHALATION Q4H PRN (Reason: Shortness Of Breath Or Wheezing) Label Comments: INHALE 2 PUFFS INSTRUCTED EVERY 4 HOURS NEEDED FOR WHEEZING/SHORTNESS OF BREATH. potassium chloride 20 mEq tablet extended release 20 meq PO DAILY Qty: 10 0RF Primary Care Provider: Sheron Villalba Referrals: Sheron Villalba MD [Primary Care Provider] - Eddie Paul MD [Med Staff - Active Staff] - As Needed Maury Hagen DO [Med Staff - Active Staff] - 1 Week if not improving Disposition Disposition: Home, Self Care
[2022-04-02] MEDS: Ondansetron 4 MG/2 ML Vial IV (15:28)
[2022-04-02] MEDS: 0.9% Normal Saline 1,000 ML 150 ML IV (15:29)
[2022-04-02] MEDS: Ketorolac 30 MG/ML Syringe IV (15:29)
[2022-04-02] MEDS: Morphine 4 MG/ML Syringe IV (16:03)
--- NOTE | 2022-04-02 16:35 | RAD_ITS ---
STUDY: X-RAY CHEST REASON FOR EXAM: Female, 41 years old. cough TECHNIQUE: Single frontal view of the chest. COMPARISON: DEC 31 2021 FINDINGS: Radiodense dressing left shoulder requires clinical correlation. The lungs are clear and expanded. There is no demonstrated pleural abnormality. Normal size heart. Normal mediastinum and millicent. Normal visualized pulmonary arteries. Normal visualized aortic arch and descending thoracic aorta. Normal visualized thoracic spine. Normal visualized ribs, clavicles, and shoulders. There is no demonstrated abnormality of the visualized soft tissue structures of the upper abdomen. RAD/Chest 1 View (Portable) IMPRESSION: No acute disease Electronically Signed: Anil Cantu MD at 17:21 EDT ,
== END 2022-04-02 17:32 | disposition home or self-care (01) ==
PROVIDERS: Emergency Provider Emergency Medicine; PCP Internal Medicine; Visit Provider Emergency Medicine
DX: J06.9 Acute upper respiratory infection, unspecified (principal); R10.9 Unspecified abdominal pain; E87.6 Hypokalemia; F17.290 Nicotine dependence, other tobacco product, uncomplicated
CPT/HCPCS: 71045; 74177; 87811; 96361; 96374; 96375; 99283; J7030; A4216; J2405

== ENCOUNTER → 2022-04-02 | Outpatient (CLI) | payer SELFPAY ==
[2022-04-02 10:30] LABS: Erythrocyte Sedimentation Rate 89 mm/hr (0-30)
[2022-04-02 10:32] LABS: Absolute Lymphocyte Count 1.51 X10^3/uL (0.83-4.51); Absolute Neutrophil Count 7.5 X10^3/uL (2.0-7.7); Basophil# 0.04 X10^3/uL; Basophil% 0.4 % (0-1); Eosinophil# 0.01 X10^3/uL; Eosinophils% 0.1 % (0-5); Hemoglobin 11.8 g/dL (12.0-15.0); Lymphocyte # 1.51 X10^3/ul (0.83-4.51); Lymphocyte % 15.2 % (19-41); Mean Corp Hgb Conc 32.8 g/dL (32-36); Mean Corpuscular Hgb 29.6 pg (27.0-32.0); Mean Corpuscular Volume 90.5 fL (81-99); Mean Platelet Vol. 10.2 fl (6.2-12.0); Monocyte# 0.82 X10^3/uL; Monocyte% 8.2 % (0-10); NRBC Flagged by Analyzer 0 % (0-5); Neutrophil # 7.51 X10^3/uL (2.7-7.7); Neutrophil % 75.4 % (47-70); Platelet Count 495 K/mm3 (150-450); RBC Distribution Width CV 15.4 % (11.6-14.6); RBC Distribution Width SD 51.4 fl (35.1-43.9); Red Blood Count 3.98 M/mm3 (4.2-5.4)
[2022-04-02 11:12] LABS: ALB/GLOB Ratio 0.5 RATIO (0.9-2.4); AST(SGOT) 25 U/L (15-37); Alanine Aminotransfer ALT/SGPT 48 U/L (13-56); Albumin, Serum 2.6 g/dL (3.2-5.0); Alkaline Phosphatase 115 U/L (45-117); Amylase 26 U/L (25-115); Anion Gap 11 (5-15); BUN 4 mg/dL (7-18); BUN/Creat Ratio 4.6 RATIO (10-20); Chloride 100 mmol/L (98-107); Creatinine, Serum 0.87 mg/dL (0.55-1.02); EST Glomerular Filtration Rate 77 mL/min (>60); Est Glom Filt Rate - Afr Amer 93 mL/min (>60); Globulin 5.1 g/dL (2.2-4.2); Glucose 97 mg/dL (74-106); Lipase 124 U/L (73-393); Protein, Total 7.7 g/dL (6.4-8.2); Sodium Level 137 mmol/L (136-145)
== END | disposition home or self-care (01) ==
LOC: LAB 10:08
PROVIDERS: PCP Internal Medicine; Referring Provider Internal Medicine Gastroenterology; Visit Provider Internal Medicine Gastroenterology
DX: Z90.49 Acquired absence of other specified parts of digestive tract (principal)
CPT/HCPCS: 36415; 80053; 82150; 83690; 85025; 85652; 86140

== ENCOUNTER 2024-06-14 14:10 | Emergency (ER) | payer SELFPAY ==
[2024-06-14 14:11] VITALS: BP 134/99; PULSE 127; RESP 18; TEMP 35.8; O2SAT 100; BMI 23.8
--- NOTE | 2024-06-14 14:25 | ED.VIS.DYS ---
HPI History of Present Illness Chief Complaint: Cold Sx Narrative Narrative: Chief complaint and HPI: 43-year-old female with history of anxiety depression and previous presents for evaluation of nausea and vomiting. Onset of symptoms yesterday. Patient states yesterday she developed nausea and vomiting that is continued and today. She states she has a mild sore throat secondary to the vomiting. She denies any fever, chills, URI symptoms, cough, shortness of breath, chest pain, abdominal pain, constipation, diarrhea, dysuria, hematuria. Endorses decreased p.o. intake. Patient has been using Phenergan at home for nausea with some relief. Denies any sick contacts Review of systems: See HPI Medications: As listed on the chart Allergies: As listed on the chart PFSH: Per chart Vital signs: As listed on the chart. Reviewed. Physical exam: Gen: A&O x3, NAD Head: Normocephalic, atraumatic Eyes: No sclera icterus, conjunctiva clear ENT: Dry mucous membranes Neck: Trachea midline, No JVD CV: RRR, no murmurs, no peripheral edema Resp: Lungs CTA BL, no w/r/c GI: Abd soft, non-distended, non-tender, no r/r/g Musc: Full ROM, no deformity Skin: Warm, dry Neuro: Alert, oriented, grossly intact, sensation intact Psych: Cooperative, appropriate mood and affect PFSH PFSH Medical History Alcohol use Anxiety and depression Asthma Memo's thyroiditis Hx of fracture of pelvis Tobacco use Home Medications ?Medication ?Instructions ?Recorded ?Last Taken ?Type alprazolam 1 mg tablet 1 mg PO DAILY PRN Anxiety 07/04/21 Unknown History bupropion HCl 300 mg 24 hr tablet, 300 mg PO DAILY 07/04/21 Unknown History extended release fluoxetine 20 mg capsule 20 mg PO DAILY depression 01/05/22 Unknown History albuterol sulfate 90 mcg/actuation 2 puff inhalation Q4H PRN 03/05/22 Unknown History aerosol inhaler Shortness Of Breath Or Wheezing potassium chloride 20 mEq 20 meq PO DAILY #10 tabs 03/10/22 Unknown Rx tablet,extended release benzonatate 200 mg capsule 200 mg PO BID PRN cough #10 caps 04/02/22 Unknown Rx ondansetron 4 mg disintegrating 4 mg PO Q8H PRN nausea and 04/02/22 Unknown Rx tablet vomiting #10 tabs potassium chloride 20 mEq 20 meq PO BID #6 tabs 04/02/22 Unknown Rx tablet,extended release tramadol 50 mg tablet 50 mg PO Q6H PRN pain #10 tabs 04/02/22 Unknown Rx cephalexin 500 mg capsule 500 mg PO BID 5 days #10 caps 06/14/24 Unknown Rx ondansetron 4 mg disintegrating 4 mg PO Q8H PRN PRN Nausea #10 tabs 06/14/24 Unknown Rx tablet Allergy/AdvReac Type Severity Reaction Status Date / Time No Known Allergies Allergy Verified 06/14/24 14:11 Family History Father Heart disease Mother CVA (cerebral vascular accident) Surgical History Status post laparoscopic cholecystectomy History of pelvic surgery Hx of section H/O tubal ligation Social History household members: family and children Smoking Status: Current every day smoker tobacco type: e-cigarettes Electronic Cigarette Use: with nicotine alcohol intake: current alcohol intake frequency: 0-2 drinks per day details: Drinks 1 vodka drink 1-2 ounces up to once q HS. substance use type: does not use EXAM Physical Exam Const Vital Signs: 06/14/24 14:11 06/14/24 15:23 06/14/24 17:37 Temperature 96.5 F L Temperature Source Temporal Pulse Rate 127 H 103 H 94 Respiratory Rate 18 18 Blood Pressure 134/99 H 110/84 H 128/90 H Blood Pressure Mean 110 92 102 Pulse Ox 100 100 Oxygen Delivery Method Room Air Room Air MDM MDM MDM Narrative Medical decision making narrative: 43-year-old female presents for evaluation of nausea and vomiting. Denies all other associated symptoms including abdominal pain. Physical exam is unremarkable except for dry mucous membranes. Differential diagnosis includes but is not limited to viral illness, dehydration, electrolyte abnormality, SHAJI, UTI. NS bolus and Zofran ordered. I do not think any imaging is needed at this time. Laboratory workup ordered. CBC with mild leukocytosis at 12.2. CMP shows hypokalemia of 2.6. Patient has a history of hypokalemia. She is currently on p.o. potassium pills at home. She has been as low as 2.8. Her worsening hypokalemia is likely secondary to her nausea and vomiting. 60 mill equivalents of p.o. potassium ordered and will recheck potassium level. No SHAJI. Magnesium level unremarkable. Patient has baseline mild transaminitis. Lipase unremarkable. UA questionable for UTI. She has findings consistent with dehydration with ketones of 150. This has been seen on previous urine samples. After receiving fluids patient was p.o. challenged and was able to tolerate p.o. intake without any nausea or vomiting. Repeat potassium 3.3. On reevaluation a second time, patient states her symptoms have improved. Patient was educated that she needs to keep up with her hydration at home. She was educated to continue her potassium at home. She was told to stop taking her Phenergan and instead will prescribe her with Zofran. She was given return precautions and follow-up with her PCP. She was updated on her questionable urinary tract infection and at this time will treat with 5 days of Keflex. She confirmed understanding. Patient stable to discharge home. Impression: 1. Possible UTI 2. Dehydration 3. Nausea and vomiting 4. Hypokalemia, improved with replacement Lab Data Labs: Laboratory Results - last 24 hr 06/14/24 06/14/24 06/14/24 14:30 16:34 17:08 WBC 12.2 H RBC 5.35 Hgb 15.0 Hct 44.1 MCV 82.4 MCH 28.0 MCHC 34.0 RDW Std Deviation 45.0 H RDW Coeff of Micheal 15.0 H Plt Count 220 MPV 9.7 Immature Gran % (Auto) 0.400 Neut % (Auto) 86.9 H Lymph % (Auto) 7.6 L [place] % (Auto) 4.7 Eos % (Auto) 0.0 Baso % (Auto) 0.4 Absolute Neuts (auto) 10.6 H Absolute Lymphs (auto) 0.93 Nucleated RBC % 0 Sodium 133 L Potassium 2.6 L* 3.3 L Chloride 94 L Carbon Dioxide 12.0 L Anion Gap 27 H BUN 8 Creatinine 1.01 Estim Creat Clear Calc 60.64 Est GFR (MDRD) Af Amer 77 Est GFR (MDRD) Non-Af 64 BUN/Creatinine Ratio 7.9 L Glucose 123 H Calcium 10.7 H Magnesium 2.2 Total Bilirubin 1.50 H AST 94 H ALT 70 H Alkaline Phosphatase 77 Total Protein 9.0 H Albumin 4.3 Globulin 4.7 H Albumin/Globulin Ratio 0.9 Lipase 67 Urine Color Yellow Urine Clarity Sl. Cloudy Urine pH 6.0 Ur Specific [place] 1.025 Urine Protein 100 H Urine Glucose (UA) Normal Urine Ketones 150 A* Urine Occult Blood 10 H Urine Nitrite Negative Urine Bilirubin Negative Urine Urobilinogen 1 H Ur Leukocyte Esterase 25 H Urine RBC 0-5 SEEN Urine WBC 0-5 SEEN Ur Squamous Epith Cells 5-10 SEEN Urine Bacteria 1+ Hyaline Casts 5-10 SEEN Urine Mucus 2+ Discharge Plan Triage Chief Complaint: Cold Sx ED Provider: Paul Lombardi Dx/Rx/DC Orders Clinical Impression: UTI (urinary tract infection), Hypokalemia Instructions: Urinary Tract Infections in Women, ED Hypokalemia Prescriptions: New cephalexin 500 mg capsule 500 mg PO BID 5 Days Qty: 10 0RF ondansetron 4 mg tablet,disintegrating 4 mg PO Q8H PRN PRN (Reason: Nausea) Qty: 10 0RF No Action alprazolam 1 mg tablet 1 mg PO DAILY PRN (Reason: Anxiety) bupropion HCl 300 mg tablet extended release 24 hr 300 mg PO DAILY fluoxetine 20 mg capsule 20 mg PO DAILY Patient Comments: TAKE 1 CAPSULE BY MOUTH ONCE DAILY albuterol sulfate 90 mcg/actuation HFA aerosol inhaler 2 puff INHALATION Q4H PRN (Reason: Shortness Of Breath Or Wheezing) Patient Comments: INHALE 2 PUFFS INSTRUCTED EVERY 4 HOURS NEEDED FOR WHEEZING/SHORTNESS OF BREATH. potassium chloride 20 mEq tablet extended release 20 meq PO DAILY Qty: 10 0RF potassium chloride 20 mEq tablet extended release 20 meq PO BID Qty: 6 0RF benzonatate 200 mg capsule 200 mg PO BID PRN (Reason: cough) Qty: 10 0RF ondansetron 4 mg tablet,disintegrating 4 mg PO Q8H PRN (Reason: nausea and vomiting) Qty: 10 0RF tramadol 50 mg tablet 50 mg PO Q6H PRN (Reason: pain) Qty: 10 0RF Primary Care Provider: Sheron Villalba Referrals: Sheron Villalba MD [Primary Care Provider] - 3-5 Days Activity Restrictions/Additional Instructions: Stop taking your Phenergan and instead start taking Zofran. Return back to the ED if symptoms change or worsen. Drink plenty of fluids. Follow-up with your primary care physician. Continue your home potassium. Print Language: [place] Disposition Disposition: Home, Self Care
[2024-06-14] MEDS: Ondansetron 4 MG/2 ML Vial IV (14:30)
[2024-06-14] MEDS: 0.9% Normal Saline (1000mL) 1,000 ML 1000 ML IV (14:30)
[2024-06-14 14:36] LABS: Absolute Lymphocyte Count 0.93 X10^3/uL (0.83-4.51); Absolute Neutrophil Count 10.6 X10^3/uL (2.0-7.7); Basophil# 0.05 X10^3/uL; Basophil% 0.4 % (0-1); Hematocrit 44.1 % (37-47); Lymphocyte # 0.93 X10^3/ul (0.83-4.51); Lymphocyte % 7.6 % (19-41); Mean Corpuscular Volume 82.4 fL (81-99); Mean Platelet Vol. 9.7 fl (6.2-12.0); Monocyte# 0.57 X10^3/uL; Monocyte% 4.7 % (0-10); NRBC Flagged by Analyzer 0 % (0-5); Neutrophil # 10.64 X10^3/uL (2.7-7.7); Neutrophil % 86.9 % (47-70); Platelet Count 220 K/mm3 (150-450); Red Blood Count 5.35 M/mm3 (4.2-5.4); White Blood Count 12.2 K/mm3 (4.4-11.0)
[2024-06-14 15:01] LABS: ALB/GLOB Ratio 0.9 RATIO (0.9-2.4); AST(SGOT) 94 U/L (15-37); Alanine Aminotransfer ALT/SGPT 70 U/L (13-56); Albumin, Serum 4.3 g/dL (3.2-5.0); Alkaline Phosphatase 77 U/L (45-117); Anion Gap 27 (5-15); BUN 8 mg/dL (7-18); BUN/Creat Ratio 7.9 RATIO (10-20); Calcium,Total 10.7 mg/dL (8.5-10.1); Chloride 94 mmol/L (98-107); Creatinine, Serum 1.01 mg/dL (0.55-1.02); EST Glomerular Filtration Rate 64 mL/min (>60); Est Glom Filt Rate - Afr Amer 77 mL/min (>60); Estimated Creatinine Clearance 60.64 ml/min; Globulin 4.7 g/dL (2.2-4.2); Glucose 123 mg/dL (74-106); Lipase 67 U/L (13-75); Potassium 2.6 mmol/L (3.5-5.1); Sodium Level 133 mmol/L (136-145)
[2024-06-14] MEDS: Metoclopramide 10 MG/2 ML Vial 5 MG IV (15:21)
[2024-06-14 15:23] VITALS: BP 110/84; PULSE 103; RESP 18; O2SAT 100
[2024-06-14] MEDS: Potassium Chloride Oral Soln 20 MEQ/15 ML UDC 60 MEQ PO (15:29)
[2024-06-14 15:30] LABS: Magnesium 2.2 mg/dL (1.6-2.6)
[2024-06-14 16:44] LABS: Color, Urine Yellow (Yellow); Glucose, Dipstick Normal (Normal); Leukocyte Esterase-Dipstick 25 /ul (Negative); Nitrite-Dipstick Negative (Negative); Occult Blood-Urine 10 /ul (Negative); Protein-Dipstick 100 mg/dl (Negative); Specific Gravity, Urine 1.025 (1.002-1.030); Urine Bilirubin Dipstick Negative (Negative); Urine Clarity Sl. Cloudy (Clear); Urine Urobilinogen 1 mg/dl (Normal)
[2024-06-14 17:02] LABS: Ketone-Dipstick 150 mg/dl (Negative)
[2024-06-14 17:11] LABS: Squamous Epithelial Cells - UA 5-10 SEEN /hpf (5-10)
[2024-06-14 17:12] LABS: Bacteria 1+ /hpf (None Seen); Hyaline Cast 5-10 SEEN /lpf (0-5); Mucous, Urine 2+ /hpf (<or=2+); Red Blood Cells-Urine 0-5 SEEN /hpf (0-5); White Blood Cells 0-5 SEEN /hpf (0-5)
[2024-06-14] MEDS: Ceftriaxone 1 GM/50 ML BAG IV (17:36)
[2024-06-14 17:37] VITALS: BP 128/90; PULSE 94
[2024-06-14 18:24] LABS: Potassium 3.3 mmol/L (3.5-5.1)
== END 2024-06-14 19:10 | disposition home or self-care (01) ==
PROVIDERS: Emergency Provider Surgery; PCP Internal Medicine; Visit Provider Surgery
DX: N39.0 Urinary tract infection, site not specified (principal); E86.0 Dehydration; E87.6 Hypokalemia; R11.2 Nausea with vomiting, unspecified; F41.9 Anxiety disorder, unspecified; F32.A Depression, unspecified; F17.290 Nicotine dependence, other tobacco product, uncomplicated; J45.909 Unspecified asthma, uncomplicated; Z90.49 Acquired absence of other specified parts of digestive tract; Z79.899 Other long term (current) drug therapy
CPT/HCPCS: 80053; 81001; 83690; 83735; 84132; 85025; 87086; 87088; 96361; 96365; 96374; 96375; 99285; J7030; J7040; A4216; J2405

== ENCOUNTER 2025-06-24 23:30 | Inpatient (IN) | payer MEDICAID, SELFPAY ==
[2025-06-24 23:32] VITALS: BP 119/76; PULSE 133; RESP 16; TEMP 37; O2SAT 98; BMI 24.4
--- NOTE | 2025-06-24 23:51 | EKG12_ITS ---
Test Reason : DYSRHYTHMIA Blood Pressure : */* mmHG Vent. Rate : 115 BPM Atrial Rate : 115 BPM P-R Int : 180 ms QRS Dur : 84 ms QT Int : 342 ms P-R-T Axes : 44 25 57 degrees QTcB Int : 473 ms Sinus tachycardia Otherwise normal ECG Confirmed by KIM ROSADO, NATTY ([id number]), international editorial producer DANN SOTO ([id number]) on 06/27/2025 9:07:18 AM Referred By: Confirmed By: NATTY ALVAREZ MD
[2025-06-25] VITALS (39 sets, daily range): BP systolic 80–137; BP diastolic 50–84; PULSE 88–109; RESP 11–26; TEMP 36.9–37.3; O2SAT 91–100; BMI 25.3
--- NOTE | 2025-06-25 | CT_ITS ---
PROCEDURE: ABDOMEN/PELVIS W IV CONT ONLY 06/25/2025 REASON FOR EXAM: ABDOMINAL PAIN UNEXPLAINED WEIGHT LOSS TECHNIQUE: Procedure Code: [id number] Modality: CT Procedure: ABDOMEN/PELVIS W IV CONT ONLY Coronal and Sagittal reconstruction series were provided. CONTRAST: isovue 370 VOLUME: 100 mL One or more dose reduction techniques were used (e.g., Automated exposure control, adjustment of the mA and/or kV according to patient size, use of iterative reconstruction technique. RADIATION DOSE SUMMARY: CTDI Vol 13.71 mGy DLP :713.64 mGycm COMPARISON: 02-Apr-2022 FINDINGS: Enlarged liver showing homogenous parenchymal attenuation with fatty changes and irregular hepatic outline. Non visualized biliary stent, prominent extra-hepatic biliary tracts. Prominent portosystemic collaterals seen along the gastroesophageal junction, splenic hilum and left retroperitoneal region. Cholecystectomy clips Normal appearance of the pancreas with clear surrounding fat planes. The spleen, adrenal glands, aorta and IVC are unremarkable. Both kidneys are of average size and showing smooth outline with preserved parenchymal thickness. No renal calculi. No hydronephrosis. Distension of the urinary bladder showing no obvious masses. Minimal sized progression of the right adnexal cyst 6.8 x 4.2 cm in diameter. No obvious solid masses related to the pelvic viscera. Metallic clips of tubal ligation noted. Right side metallic hyperdensity/suture noted. The appendix appears unremarkable. No right iliac inflammatory changes. Colonic fecal loading. Diffuse rather uniform rectal mural thickening. The small bowel loops are unremarkable. The stomach is unremarkable. Small hiatus hernia is noted. No ascites or free air. No obvious pathologically enlarged lymph nodes. Left sacroiliac joint fixation inducing beam hardening artifacts is noted. Scanned osseous structures show no acute osseous destruction. Scanned lung bases show basal atelectatic plates. CT/Abdomen/Pelvis W IV Cont ONLY IMPRESSION: Fatty hepatomegaly with parenchymatous liver changes. Minimal sized progression of the right adnexal cyst. Diffuse rather uniform rectal mural thickening that could represent proctitis. Stable rest of the study findings. Reading Location: [place] [address]
--- OUTSIDE RECORDS SUMMARY | 2025-06-25 | XMS RPT_ITS | CCD ---
Author Organization 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 Name Role Phone ROSHNI RENTERIA DO Admitting Unavailable ROSHNI RENTERIA DO Attending Unavailable SHAHRAM EDGE Referring Unavailable DIDUR, ROSHNI RED Primary Care Unavailable MINESH, SHAHRAM Consulting Unavailable PROVIDER, UNKNOWN Consulting Unavailable PROVIDER, UNKNOWN Consulting Unavailable PROVIDER, UNKNOWN Consulting Unavailable RHONA MCKEON DO Admitting Unavailable MCKEON, RHONA DO Attending Unavailable EDGE, SHAHRAM Referring Unavailable MCKEON, RHONA DO Primary Care Unavailable EDGE, SHAHRAM Consulting Unavailable PROVIDER, UNKNOWN Consulting Unavailable PROVIDER, UNKNOWN Consulting Unavailable PROVIDER, UNKNOWN Consulting Unavailable Deejay ROSADO, Mikaela Primary Care Provider Dr. Mikaela Chavarria Primary Care Provider Dr. Remberto Edwards Emergency Provider Dr. Mildred Liu Admit Provider Dr. Mildred Liu Other Provider Dr. Eddie Paul Attending Provider [phone] Eddie Paul Other Provider Dr. Jeanie Gil Other Provider Dr. Jeanie Gil Attending Provider Xiao, Dr. Mendiola Attending Provider Mikaela Chavarria MD Primary Care Provider Dr. Mikaela Chavarria Primary Care Provider Dr. Remberto Edwards Emergency Provider [phone] Mildred Liu Admit Provider Dr. Mildred Liu Other Provider Dr. Eddie Paul Other Provider Louise, Dr. Jeanie Link Referring Provider Louise, Dr. Jeanie Link Other Provider [phone] Friend, Dr. Mendiola Attending Provider Dr. Sonia Cai Attending Provider [phone] Dr. Mildred Liu Referring Provider Dr. 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, Karen Unavailable GANTA, [facility] Primary Care Unavailable OLDER, KAREN Attending Unavailable [facility], [facility] Primary Care Unavailable OLDER, KAREN Referring Unavailable [facility], [facility] Primary Care Unavailable GAN, [facility] Primary Care Unavailable OLDER, KAREN Attending Unavailable [facility], [facility] Primary Care Unavailable OLDER, KAREN Referring Unavailable Medications Current Medications Medication Drug Class(es) Dates Sig (Normalized) Sig (Original) ALPRAZolam 0.25 mg oral tablet (20 sources) Benzodiazepine Start: 02-28-2025 End: 03-30-2025 take 1 tablet by mouth once daily as needed for anxiety ALPRAZolam (XANAX) 0.25 mg tablet Indications: Anxiety Take 1 tablet by mouth once daily as needed for anxiety for up to 30 days. 30 tablet 02/28/2025 03/30/2025 Active Start: 08-14-2022 End: 09-13-2022 take 1 tablet by mouth every twenty-four hours as needed for anxiety and anxiety ALPRAZolam (XANAX) 1 mg tablet Indications: Anxiety Take 1 tablet by mouth at bedtime as needed for up to 30 days. 20 tablet 0 08/14/2022 09/13/2022 Active Start: 07-10-2022 End: 08-10-2022 take 1 tablet by mouth every twenty-four hours as needed for anxiety and anxiety ALPRAZolam (XANAX) 1 mg tablet Indications: Anxiety Take 1 tablet by mouth at bedtime as needed for up to 30 days. 20 tablet 0 07/10/2022 08/10/2022 Discontinued Start: 06-03-2022 End: 07-03-2022 take 1 tablet by mouth every twenty-four hours as needed for anxiety and anxiety ALPRAZolam (XANAX) 1 mg tablet Indications: Anxiety Take 1 tablet by mouth at bedtime as needed for up to 30 days. 20 tablet 0 06/03/2022 07/03/2022 Active Start: 12-11-2021 End: 02-10-2022 take 1 tablet by mouth every twenty-four hours as needed for anxiety and anxiety ALPRAZolam (XANAX) 1 mg tablet Indications: Anxiety Take 1 tablet by mouth at bedtime as needed for up to 30 days. 20 tablet 0 01/11/2022 02/10/2022 Active Start: 07-04-2021 take 1 mg by mouth once daily Alprazolam Active 1 MG PO DAILY July 04, 2021 1:00am Comment on above: Take 1 tablet by reynaldo th at bedtime as needed for up to 30 days. benzonatate 200 mg oral capsule (2 sources) Non-narcotic Antitussive Start: 2 take 200 mg by mouth twice daily Benzonatate Active 200 MG PO TWICE A DAY April 02, 2022 12:00am buPROPion hydrochloride 75 mg oral tablet (20 sources) Aminoketone Start: 3 take 1 tablet by mouth twice daily buPROPion (WELLBUTRIN) 75 mg tablet Take 1 tablet by mouth twice daily. 60 tablet 5 11/08/2022 Active Start: 11-19-2021 End: 06-03-2022 take 1 tablet by mouth twice daily buPROPion SR (WELLBUTRIN SR) 150 mg 12 hr tablet Indications: Anxiety Take 1 tablet by mouth twice daily. 180 tablet 2 11/19/2021 06/03/2022 Discontinued Start: 07-04-2021 take 300 mg by mouth once dylan y Bupropion Hcl Active 300 MG PO DAILY July 04, 2021 1:00am Comment on above: Take 1 tablet by reynaldo th twice daily. ergocalciferol 1.25 mg oral capsule (13 sources) Provitamin D2 Compound Start: 02-17-20 25 take 1 capsule by mouth every week, then take 1 capsule by mouth two times weekly, then take 1 capsule by mouth every week ergocalciferol 50,000 unit capsule (VITAMIN D2, DRISDOL) Indications: Vitamin D deficiency Take 1 capsule by mouth one time a week. Take 1 tablet by mouth twice weekly [id number], then decrease to 1 tablet weekly. 16 capsule 02/16/2025 Active Start: 11-17-2022 End: 02-16-2025 take 1 capsule by mouth two times weekly, then take 1 capsule by mouth two times weekly, then take 1 capsule by mouth every week ergocalciferol 50,000 unit capsule (VITAMIN D2, DRISDOL) Indications: Vitamin D deficiency Take 1 capsule by mouth two times a week. TO BE TAKEN ORALLY DIRECTED. Take 1 tablet by mouth twice weekly [id number], then decrease to 1 tablet weekly. 8 capsule 5 11/17/2022 02/16/2025 Discontinued Comment on above: Take 1 capsule by mo ut two times a week. TO BE TAKEN ORALLY DIRECTED. Take 1 tablet by mouth twice weekly [id number], then decrease to 1 tablet weekly. escitalopram 5 mg oral tablet (1 source) Serotonin Reuptake Inhibitor Start: take 1 tablet by mouth once daily escitalopram oxalate (LEXAPRO) 5 mg tablet Take 1 tablet by mouth once daily. 30 tablet 1 02/28/2025 Active lamoTRIgine 25 mg oral tablet (20 sources) Mood Stabilizer, Anti-epileptic Agent Start: take 1 tablet by mouth twice daily as needed, then take 1 tablet by mouth once as needed, then take 1 tablet by mouth twice daily as needed lamoTRIgine (LAMICTAL) 25 mg tablet Take 1 tablet by mouth twice daily. Start with one pill at night for a couple weeks and increase to 1 pill 2 times a day for 2 weeks. We can go up on that as needed. 180 tablet 1 06/17/2022 Active Start: 01-18-2022 End: 06-13-2022 lamoTRIgine (LAMICTAL) 25 mg tablet Start with one pill at night for a couple weeks and increase to 1 pill 2 times a day for 2 weeks. We can go up on that as needed. 45 tablet 1 01/18/2022 06/13/2022 Discontinued Comment on above: Start with one pill at night for a couple weeks and increase to 1 pill 2 times a day for 2 weeks. We can go up on that as needed. Take 1 tablet by reynaldo th twice daily. Start with one pill at night for a couple weeks and increase to 1 pill 2 times a day for 2 weeks. We can go up on that as needed. levothyroxine sodium 0.05 mg oral tablet (14 sources) l-Thyroxine Start: 023 End: 025 take 1 tablet by mouth once daily before breakfast levothyroxine (SYNTHROID) 50 mcg tablet Indications: Hypothyroidism, unspecified type Take 1 tablet by mouth daily before breakfast. 30 tablet 5 02/16/2025 Active Comment on above: Take 1 tablet by reynaldo th daily before breakfast. TAKE 1 TABLET BY REYNALDO EVERY DAY BEFORE BREAKFAST metoclopramide 10 mg oral tablet (1 source) Dopamine-2 Receptor Antagonist Start: Metoclopramide Hcl (Reglan) 10 mg tablet Active 10 MG PO EVERY 6 HOURS January 06, 2022 4:38am take with 25mg of Benadryl metroNIDAZOLE 500 mg oral tablet (2 sources) Nitroimidazole Antimicrobial Start: End: take 1 tablet by mouth twice daily metroNIDAZOLE (FLAGYL) 500 mg tablet Take 1 tablet by mouth two times a day for 7 days. 14 tablet 0 03/13/2024 03/20/2024 Active ondansetron 4 mg disintegrating oral tablet (6 sources) Serotonin-3 Receptor Antagonist Start: take 4 mg by mouth every eight hours Ondansetron Active 4 MG PO Q8H April 02, 2022 12:00am Start: 01-06-2022 take 4 mg by mouth e very eight hours Ondansetron Active 4 MG PO Q8H January 06, 2022 4:38am Start: 07-04-2021 End: 12-28-2021 take 4 mg by mouth every eight hours Ondansetron Active 4 MG PO Q8H 7 July 04, 2021 9:20pm polyethylene glycol 3350 92702 mg powder for oral solution (2 sources) Osmotic Laxative Start: 12-31-2021 Polyethylene Glycol 3350 (Miralax) 17 gram powder in packet Active 17 GM PO DAILY December 31, 2021 4:25pm potassium chloride 20 meq extended release oral tablet (8 sources) Start: 04-02-2022 take 20 mEq by mouth twice daily Potassium Chloride Active 20 MEQ PO TWICE A DAY April 02, 2022 12:00am Start: 03-10-2022 take 20 mEq by mouth once dylan y Potassium Chloride Active 20 MEQ PO DAILY March 10, 2022 12:00am Start: 12-28-2021 take 20 mEq by mouth twice merari ly Potassium Chloride Active 20 MEQ PO TWICE A DAY December 28, 2021 10:33pm predniSONE 20 mg oral tablet (3 sources) Start: 11-05-2022 End: 11-10-2022 take 2 tablets by mouth once daily predniSONE (DELTASONE) 20 mg tablet Indications: Face pain Take 2 tablets by mouth once daily for 5 days. 10 tablet 0 11/05/2022 11/10/2022 Active Comment on above: Take 2 tablets by mo [facility] once daily for 5 days. prochlorperazine 10 mg oral tablet (2 sources) Phenothiazine Start: 12-31-2021 take 1 tablet by mouth every six hours Prochlorperazine Maleate (Compazine) 10 mg tablet Active 10 MG PO EVERY 6 HOURS December 31, 2021 4:26pm promethazine hydrochloride 25 mg rectal suppository (4 sources) Phenothiazine Start: 12-31-2021 Promethazine Active 25 MG RC EVERY 6 HOURS December 31, 2021 4:25pm Start: 12-28-2021 take 25 mg by mouth every six hours as needed Promethazine Active 25 MG PO EVERY 6 HOURS NEEDED December 28, 2021 10:32pm QUEtiapine 25 mg oral tablet (20 sources) Atypical Antipsychotic Start: 06-03-2022 take 1 tablet by mouth once daily at bedtime QUEtiapine (SEROQUEL) 25 mg tablet Take 1 tablet by mouth daily at bedtime. 30 tablet 5 06/03/2022 Active Comment on above: Take 1 tablet by [facility] daily at bedtime. sulfamethoxazole 800 mg / trimethoprim 160 mg oral tablet (6 sources) Dihydrofolate Reductase Inhibitor Antibacterial, Sulfonamide Antimicrobial Start: 03-12-2024 End: 03-15-2024 take 1 tablet by mouth twice daily sulfamethoxazol e-trimethoprim (BACTRIM DS) 800-160 mg per tablet Take 1 tablet by mouth two times a day for 3 days. 6 tablet 0 03/12/2024 03/15/2024 Active Start: 12-28-2021 take 1 tablet by reynaldo th twice daily Sulfamethoxazole-Trimethoprim Active 1 T ABLET PO TWICE A DAY December 28, 2021 10:32pm traMADol hydrochloride 50 mg oral tablet (2 sources) Opioid Agonist Start: 04-02-2022 take 50 mg by mouth every six hours Tramadol Active 50 MG PO EVERY 6 HOURS April 02, 2022 12:00am Completed/Discontinued Medications Medication Drug Class(es) Dates Sig (Normalized) Sig (Original) [id number] 200 actuat albuterol 0.09 mg/actuat metered dose inhaler (20 sources) beta2-Adrenergic Agonist Start: 06-17-2022 End: 02-28-2025 take 2 puff(s) by inhalation every four hours as needed for wheezing albuterol HFA (PROVENTIL HFA, VENTOLIN HFA) 90 mcg/actuation inhaler Indications: Mild intermittent asthma without complication (HCC) INHALE 2 PUFFS INSTRUCTED EVERY 4 HOURS NEEDED FOR WHEEZING/SHORTNESS OF BREATH. 6.7 Each 1 08/28/2022 02/28/2025 Discontinued Start: 05-29-2022 End: 06-13-2022 take 2 puff(s) by inhalation every four hours as needed for wheezing albuterol HFA (VENTOLIN HFA) 90 mcg/actuation inhaler Indications: Mild intermittent asthma without complication Inhale 2 Puffs as instructed every 4 hours as needed for wheezing/shortness of breath. 1 Each 3 05/29/2022 06/13/2022 Discontinued Start: 03-05-2022 take 1 puff(s) by in halation every four hours Albuterol Sulfate Active 2 PUFF INHALATION Q4H March 05, 2022 12:00am Start: 12-17-2021 End: 05-25-2022 take 2 puff(s) by inhalation every four hours as needed for wheezing albuterol HFA (VENTOLIN HFA) 90 mcg/actuation inhaler Indications: Mild intermittent asthma without complication Inhale 2 Puffs as instructed every 4 hours as needed for wheezing/shortness of breath. 1 Inhaler 1 01/11/2022 05/25/2022 Discontinued Start: 11-19-2021 End: 12-15-2021 take 2 puff(s) by inhalation every four hours as needed for wheezing albuterol HFA (VENTOLIN HFA) 90 mcg/actuation inhaler Indications: Mild intermittent asthma without complication Inhale 2 Puffs as instructed every 4 hours as needed for wheezing/shortness of breath. 1 Inhaler 0 11/19/2021 12/15/2021 Discontinued Comment on above: Inhale 2 Puffs as in structed every 4 hours as needed for wheezing/shortness of breath. FLUoxetine 40 mg oral capsule (20 sources) Serotonin Reuptake Inhibitor Start: 05-29-20 End: 11-09-19 take 1 capsule by mouth once daily FLUoxetine (PROZAC) 40 mg capsule Take 1 capsule by mouth once daily. 90 capsule 2 05/29/2022 11/08/2022 Discontinued Start: 03-13-2022 End: 05-25-2022 take 1 capsule by mouth once daily FLUoxetine (PROZAC) 40 mg capsule TAKE 1 CAPSULE BY MOUTH ONCE DAILY 90 capsule 2 03/27/2022 05/25/2022 Discontinued Start: 11-19-2021 End: 03-13-2022 take 20 mg by mouth once daily Fluoxetine Active 20 MG PO DAILY January 05, 2022 12:00am Comment on above: Take 1 capsule by [facility] once daily. TAKE 1 CAPSULE BY [facility] ONCE DAILY heparin sodium, porcine 10 unt/ml injectable solution (7 sources) Unfractionated Heparin, Anti-coagulant Start: 015 End: 015 Heparin (Porcine) In 0.9% Nacl Discontinued 81003 UNIT IV DAILY May 25, 2015 12:00am May 26, 2015 8:13am nitrofurantoin, macrocrystals 25 mg / nitrofurantoin, monohydrate 75 mg oral capsule (1 source) Nitrofuran Antibacterial Start: 025 End: 025 take 1 capsule by mouth twice daily at mealtime nitrofurantoin monohydrate and macrocrystal (MACROBID) 100 mg capsule Take 1 capsule by mouth two times a day with meals for 7 days. 14 capsule 02/16/2025 02/23/2025 oxyCODONE hydrochloride 5 mg oral tablet (3 sources) Opioid Agonist Start: End: take 5 mg by mouth every six hours Oxycodone Discontinued 5 MG PO EVERY 6 HOURS 12 3 March 09, 2022 March 19, 2022 1:35pm Problems Active Problems Problem Classification Problem Date Documented Da te Episodic/Chronic Abdominal pain (10 sources) Acute abdominal pain; Translations: [Unspecified abdominal pain] Episodic Anxiety disorders (20 sources) Anxiety; Translations: [Anxiety disorder, unspecified] Onset: 11-03-2014 08-06-2021 Chronic Asthma (6 sources) Mild intermittent asthma; Translations: [Mild intermittent asthma, uncomplicated] Onset: 02-28-2025 Chronic Attention-deficit, conduct, and disruptive behavior disorders (1 source) Attention deficit hyperactivity disorder; Translations: [Attention-deficit hyperactivity disorder, unspecified type] Chronic Biliary tract disease (8 sources) Biliary sludge; Translations: [Other specified diseases of gallbladder] Episodic External cause codes: Fall (1 source) Fall on same level from slipping, tripping and stumbling with subsequent striking against other object, initial encounter; Translations: [Fall on same level from slipping, tripping and stumbling with subsequent striking against other object, initial encounter] Onset: 11-27-2019 External cause codes: Place of occurrence (1 source) Bedroom of unspecified non-institutional (private) residence as the place of occurrence of the external cause; Translations: [Bedroom of unspecified non-institutional (private) residence as the place of occurrence of the external cause] Onset: 11-27-2019 External cause codes: Unspecified (1 source) Activity, other personal hygiene; Translations: [Activity, other personal hygiene] Onset: 11-27-2019 Fluid and electrolyte disorders (17 sources) Dehydration; Translations: [Dehydration] Episodic Gastritis and duodenitis (7 sources) Gastritis; Translations: [Gastritis, unspecified, without bleeding] Episodic Genitourinary symptoms and ill-defined conditions (2 sources) Dysuria; Translations: [Dysuria] Onset: 01-24-2025 01-24-2025 Episodic Headache; including migraine (2 sources) Headache; Translations: [Headache] Onset: 11-27-2019 Episodic Immunizations and screening for infectious disease (6 sources) Needs influenza immunization; Translations: [Encounter for immunization] Onset: 02-28-2025 Episodic Malaise and fatigue (2 sources) Fatigue; Translations: [Other fatigue] Onset: 01-24-2025 01-24-2025 Episodic Mood disorders (20 sources) Depressive disorder; Translations: [Depression] Onset: 03-06-2015 08-06-2021 Chronic Nausea and vomiting (20 sources) Nausea and vomiting; Translations: [Nausea with vomiting, unspecified] Onset: 07-07-2024 Episodic Nutritional deficiencies (7 sources) Vitamin D deficiency; Translations: [Vitamin D deficiency, unspecified] Onset: 01-24-2025 Chronic Other connective tissue disease (2 sources) Pain in left lower limb; Translations: [Pain in left leg] 03-02-2025 Episodic Other connective tissue disease (1 source) Pain in left leg; Translations: [Pain of left lower extremity] Onset: 02-28-2025 Episodic Other gastrointestinal disorders (6 sources) Constipation; Translations: [Constipation, unspecified] Episodic Other liver diseases (2 sources) Elevated liver enzymes level; Translations: [Abnormal levels of other serum enzymes] 03-02-2025 Episodic Other liver diseases (1 source) Abnormal levels of other serum enzymes; Translations: [Elevated liver enzymes] Onset: 02-28-2025 Episodic Other nervous system disorders (1 source) Other chronic pain; Translations: [Chronic bilateral low back pain, unspecified whether sciatica present] Onset: 02-28-2025 Chronic Other nutritional; endocrine; and metabolic disorders (1 source) Weight gain; Translations: [Abnormal weight gain] Episodic Other screening for suspected conditions (not mental disorders or infectious disease) (4 sources) Patient encounter status; Translations: [Encounter for screening mammogram for malignant neoplasm of breast] Episodic Other upper respiratory disease (1 source) Mass of nose; Translations: [Other specified disorders of nose and nasal sinuses] Episodic Other upper respiratory disease (1 source) Nasal mucosa dry; Translations: [Other specified disorders of nose and nasal sinuses] Episodic Other upper respiratory infections (2 sources) Upper respiratory infection; Translations: [Acute upper respiratory infection, unspecified] Episodic Pancreatic disorders (not diabetes) (14 sources) Acute pancreatitis; Translations: [Acute pancreatitis without necrosis or infection, unspecified] Episodic Phlebitis; thrombophlebitis and thromboembolism (1 source) Deep venous thrombosis of lower extremity; Translations: [Acute embolism and thrombosis of unspecified deep veins of unspecified proximal lower extremity] Episodic Residual codes; unclassified (2 sources) Treatment not available; Translations: [Procedure and treatment not carried out for other reasons] Episodic Residual codes; unclassified (5 sources) Acquired absence of other specified parts of digestive tract; Translations: [Other postprocedural status] Episodic Residual codes; unclassified (2 sources) Insomnia; Translations: [Insomnia, unspecified] Episodic Spondylosis; intervertebral disc disorders; other back problems (2 sources) Chronic low back pain; Translations: [Chronic bilateral low back pain, unspecified whether sciatica present] 03-02-2025 Episodic Sprains and strains (1 source) Strain of muscle, fascia and tendon at neck level, initial encounter; Translations: [Strain of muscle, fascia and tendon at neck level, initial encounter] Onset: 11-27-2019 Episodic Superficial injury; contusion (1 source) Contusion of other part of head, initial encounter; Translations: [Contusion of other part of head, initial encounter] Onset: 11-27-2019 Episodic Thyroid disorders (7 sources) Hypothyroidism; Translations: [Hypothyroidism, unspecified] Onset: 02-28-2025 Chronic Unclassified (20 sources) Uses contraception; Translations: [ control] Onset: 11-03-2014 08-06-2021 Unclassified (1 source) Chronic bilateral low back pain, unspecified whether sciatica present; Translations: [Chronic bilateral low back pain, unspecified whether sciatica present] Onset: 02-28-2025 Urinary tract infections (8 sources) Urinary tract infectious disease; Translations: [Urinary tract infection, site not specified] 03-12-2024 Episodic Viral infection (7 sources) Acute viral disease; Translations: [Viral infection, unspecified] Episodic Past or Other Problems Problem Classification Problem Date Documented Da te Episodic/Chronic Administrative/social admission (20 sources) Grand multipara; Translations: [Problems related to multiparity] Onset: 11-25-2014 08-06-2021 Episodic Other complications of (20 sources) Tobacco smoking in mother complicating ; Translations: [Smoking (tobacco) complicating , unspecified trimester] Onset: 11-03-2014 08-06-2021 Episodic Other complications of (20 sources) High risk ; Translations: [Supervision of other high risk pregnancies, unspecified trimester] Onset: 01-26-2015 08-06-2021 Episodic Pulmonary heart disease (20 sources) H/O: pulmonary embolus; Translations: [Personal history of pulmonary embolism] Onset: 11-03-2014 08-06-2021 Episodic Screening and history of mental health and substance abuse codes (9 sources) H/O: depression; Translations: [Personal history of other mental and behavioral disorders] Onset: 11-03-2014 Resolved: 11-03-2014 11-03-2014 Episodic Results Test Name Value Interpretation Reference Range Facil ity C. trachomatis+N. gonorrhoea e DNA NELI+probe Ql (Unsp spec)Ordered By: Kaitlin Gregory on 03-01-2025 C. trachomatis rRNA NELI+probe Ql (Unsp spec) Not detected Not detected [facility] Interpretation and review of laboratory results Normal [facility] N. gonorrhoeae rRNA NELI+probe Ql (Unsp spec) Not detected Not detected [facility] For screening asymptomatic women, a vaginal swab specimen([employer] vaginal swab [id number]) is optimal. Urine specimens have reduced sensitivity for Chlamydia trachomatis or Neisseria gonorrhoeae infection in female patients without symptoms. This FDA-approved assay has been modified to accept rectal swabs self-collected in a healthcare setting. For self-collected rectal swabs, the test was developed and its performance characteristics determined by the [facility]'s [facility] [place] ([facility]). It has not been cleared or approved by the FDA. -[facility] is regulated under CLIA as qualified to perform high-complexity testing. This test is used for clinical purposes. It should not be regarded as investigational or for research. [facility] HIV 1+2 Ab IA Qlon HIV 1 and 2 Ab IA.rapid Nom (S/P/Bld) [facility] Comment on above: Test not indicated. HIV 1+2 Ab+HIV1 p24 Ag IA Ql Non-Reactive Nonreactive [facility] HIV immunoassay testing algorithm interpretation (S/P/Bld) [Interp] [facility] Comment on above: No evidence of HIV-1 or HIV-2 infection. Should recent infection be suspected, repeat testing may be considered 2-3 weeks after this draw. [place] Rev. Code 3701.243(E): This information has been disclosed to you from confidential records protected from disclosure by state law. You shall make no further disclosure of this information without the specific, written, and informed release of the individual to whom it pertains or as otherwise permitted by state law. A general authorization for the release of medical or other information is not sufficient for the purpose of the release of HIV test results or diagnoses. [facility] Hepatic function 2000 panelo n 03-01-2025 Albumin [Mass/Vol] 4.2 g/dL 3.9 - 4.9 g/dL [facility] ALP [Catalytic activity/Vol] 119 U/L 34 - 123 U/L [facility] ALT [Catalytic activity/Vol] 37 U/L 7 - 38 U/L [facility] AST [Catalytic activity/Vol] 78 U/L High 13 - 35 U/L [facility] Bilirubin [Mass/Vol] 1 mg/dL 0.2 - 1.3 mg/dL [facility] Bilirubin.conjugat ed [Mass/Vol] 0.3 mg/dL High NINF - 0.3 mg/dL [facility] Interpretation and review of laboratory results Abnormal [facility] Protein [Mass/Vol] 7.5 g/dL 6.3 - 8.0 g/dL [facility]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 mmol/L Normal 22-30 [facility] Comment on above: Order Comment: Speci men Type: BLOOD SPECIMEN Ordering Facility: [facility] Address: [address] [place] [address] Performed By: #### 2 43210-16, 2132-04 #### [facility] CLIA [id number] [address] [place] [address] [place] Creatinine [Mass/Vol] 0.52 mg/dL Low 0.58-0.96 [facility] Comment on above: Order Comment: Speci men Type: BLOOD SPECIMEN Ordering Facility: [facility] Address: [address] [place] [address] Performed By: #### 2 43210-16, 2132-04 #### [facility] CLIA [id number] [address] [place] [address] [place] Creatinine and Glomerular filtration rate.predicted panel (S/P/Bld) 119 mL/min/1.73m??? Normal >=60 [facility] Comment on above: Order Comment: Speci men Type: BLOOD SPECIMEN Ordering Facility: [facility] Address: [address] [place] [address] Result Comment: Edith mated Glomerular Filtration Rate (eGFR) is calculated using the 2020 CKD-EPI creatinine equation. This equation utilizes serum creatinine, sex, and age as parameters. The creatinine assay has traceable calibration to isotope dilution-mass spectrometry. Refer to KDIGO guidelines for clinical interpretation. In patients with unstable renal function, e.g. those with acute kidney injury, the eGFR may not accurately reflect actual GFR. Performed By: #### 2 4328, 2132-04 #### [facility] CLIA [id number] [address] [place], [place] [address] [place] Glucose [Mass/Vol] 83 mg/dL Normal 74-99 [facility] Comment on above: Order Comment: Teresa russell Type: BLOOD SPECIMEN Ordering Facility: [facility] Address: [address] [place] [address] Result Comment: The [place] Diabetes [employer] (ADA) provides guidance for cutoff values for fasting glucose and random glucose. The ADA defines fasting as no caloric intake for at least 8 hours. Fasting plasma glucose results between 100 to 125 mg/dL indicate increased risk for diabetes (prediabetes). Fasting plasma glucose results greater than or equal to 126 mg/dL meet the criteria for diagnosis of diabetes. In the absence of unequivocal hyperglycemia, results should be confirmed by repeat testing. In a patient with classic symptoms of hyperglycemia or hyperglycemic crisis, random plasma glucose results greater than or equal to 200 mg/dL meet the criteria for diagnosis of diabetes. Reference: Standards of Medical Care in Diabetes 2016, [place] [employer]. Diabetes Care. 2016.39(Suppl 1). Performed By: #### 2 43210-16, 2132-04 #### [facility] CLIA [id number] [address] [place] [address] [place] Potassium [Moles/Vol] 4.4 mmol/L Normal 3.7-5.1 [facility] Comment on above: Order Comment: Teresa russell Type: BLOOD SPECIMEN Ordering Facility: [facility] Address: [address] [place] [address] Performed By: #### 2 43210-16, 2132-04 #### [facility] CLIA [id number] [address] [place] [address] [place] Protein [Mass/Vol] 6.5 g/dL Normal 6.3-8.0 [facility] Comment on above: Order Comment: Teresa russell Type: BLOOD SPECIMEN Ordering Facility: [facility] Address: [address] [place] [address] Performed By: #### 2 43210-16, 2132-04 #### [facility] CLIA [id number] [address] [place] [address] [place] Sodium [Moles/Vol] 137 mmol/L Normal 136-144 [facility] Comment on above: Order Comment: Speci men Type: BLOOD SPECIMEN Ordering Facility: [facility] Address: [address] [place], [place] [address] Performed By: #### 2 4323-8, 2132-04 #### [facility] CLIA [id number] [address] [place], [place] [address] [place] Urea nitrogen [Mass/Vol] 5 mg/dL Low 7-21 [facility] Comment on above: Order Comment: Speci men Type: BLOOD SPECIMEN Ordering Facility: [facility] Address: [address] [place] [address] Performed By: #### 2 4323-8, 2132-04 #### [facility] CLIA [id number] [address] [place] [address] [place] Lipid 1996 panelon 5 Cholesterol [Mass/Vol] 340 mg/dL High <200 [facility] Comment on above: Order Comment: Speci men Type: BLOOD SPECIMEN Ordering Facility: [facility] Address: [address] [place] [address] Result Comment: <200 mg/dL, Desirable 200-239 mg/dL, Borderline high >239 mg/dL, High Performed By: #### 5 195-3, 00810-4, 22036-6, 93775-7 #### [facility] CLIA [id number] [address] [place] [address] [place] Cholesterol in HDL [Mass/Vol] 30 mg/dL Low >39 [facility] Comment on above: Order Comment: Speci men Type: BLOOD SPECIMEN Ordering Facility: [facility] Address: [address] [place] [address] Result Comment: 40-5 9 mg/dL, Acceptable >59 mg/dL, High: Negative risk factor for coronary heart disease <40 mg/dL, Low: Positive risk factor for coronary heart disease Performed By: #### 5 195-3, 53787-1, 14088-5, 93065-8 #### [facility] CLIA [id number] [address] [place] [address] [place] Cholesterol in LDL [Mass/Vol] 259 mg/dL High <100 [facility] Comment on above: Order Comment: Brittanyi men Type: BLOOD SPECIMEN Ordering Facility: [facility] Address: [address] [place] [address] Result Comment: <100 mg/dL, Optimal 100-129 mg/dL, Near optimal/above optimal 130-159 mg/dL, Borderline high 160-189 mg/dL, High >189 mg/dL, Very high Secondary prevention optimal LDL Cholesterol levels are recommended to be <70 mg/dL LDL cholesterol is calculated using the Espino-NIH equation. Performed By: #### 5 195-3, 87729-4, 17568-6, 61080-8 #### [facility] CLIA [id number] [address] [place] [address] [place] Cholesterol in LDL/Cholesterol in HDL [Mass ratio] 8.63 {ratio} High <2.54 [facility] Comment on above: Order Comment: Brittanyi drew Type: BLOOD SPECIMEN Ordering Facility: [facility] Address: [address] [place] [address] Result Comment: [place] carroll: 1. National Cholesterol Education Program ATP III Guideline At-A-Glance Quick Desk Reference: National Heart, Lung, and Blood [place]. National Institutes of Health. 2001: NIH Publication No. 01-3305. 2. An International Atherosclerosis Society position paper: global recommendations for the management of dyslipidemia: executive summary, Atherosclerosis. 2014: 232(2):410-413. Performed By: #### 5 195-3, 46758-9, 10934-5, 61545-3 #### [facility] CLIA [id number] [address] [place] [address] [place] Cholesterol in VLDL [Mass/Vol] 58 mg/dL High <30 [facility] Comment on above: Order Comment: Speci men Type: BLOOD SPECIMEN Ordering Facility: [facility] Address: [address] [place] [address] Performed By: #### 5 195-3, 39983-5, 73876-4, 75822-3 #### [facility] CLIA [id number] [address] [place] [address] [place] Cholesterol non HDL [Mass/Vol] 310 mg/dL High <130 [facility] Comment on above: Order Comment: Speci men Type: BLOOD SPECIMEN Ordering Facility: [facility] Address: [address] [place] [address] Result Comment: <130 mg/dL, Optimal 130-159 mg/dL, Near optimal/above optimal 160-189 mg/dL, Borderline high 190-219 mg/dL, High >219 mg/dL, Very high Secondary prevention optimal non HDL Cholesterol levels are recommended to be <100 mg/dL Performed By: #### 5 195-3, 83811-0, 05421-4, 36242-4 #### [facility] CLIA [id number] [address] [place] [address] [place] Cholesterol.total/ Cholesterol in HDL [Mass ratio] 11.33 {ratio} High <5.10 [facility] Comment on above: Order Comment: Speci men Type: BLOOD SPECIMEN Ordering Facility: [facility] Address: [address] [place] [address] Performed By: #### 5 195-3, 39508-5, 21688-3, 11530-9 #### [facility] CLIA [id number] [address] [place] [address] [place] FASTING TIME 12 hrs Normal [facility] Comment on above: Order Comment: Speci men Type: BLOOD SPECIMEN Ordering Facility: [facility] Address: [address] [place] [address] Performed By: #### 5 195-3, 16855-5, 11184-3, 40869-0 #### [facility] CLIA [id number] [address] [place] [address] [place] Triglyceride [Mass/Vol] 240 mg/dL High <150 [facility] Comment on above: Order Comment: Speci men Type: BLOOD SPECIMEN Ordering Facility: [facility] Address: [address] [place] [address] Result Comment: <150 mg/dL, Normal 150-199 mg/dL, Borderline high 200-499 mg/dL, High >499 mg/dL, Very high Performed By: #### 5 195-3, 90790-5, 25035-6, 92771-5 #### [facility] CLIA [id number] [address] [place] [address] [place] T3Free SerPl-mCncon 02-15-20 25 Free T3 [Mass/Vol] 2.4 pg/mL Normal 2.3-4.1 [facility] Comment on above: Order Comment: Speci men Type: BLOOD SPECIMEN Ordering Facility: [facility] Address: [address] [place] [address] Performed By: #### 5 195-3, 14969-1, 62325-8, 83446-3 #### [facility] CLIA [id number] [address] [place] [address] [place] T4 Free SerPl-mCncon 025 Free T4 [Mass/Vol] 0.9 ng/dL Normal 0.9-1.7 [facility] Comment on above: Order Comment: Speci men Type: BLOOD SPECIMEN Ordering Facility: [facility] Address: [address] [place] [address] Performed By: #### 5 195-3, 39708-1, 60266-2, 05976-4 #### [facility] CLIA [id number] [address] [place] [address] [place] TSH SerPl-aCncon 02-14-2025 TSH Qn 20.300 m[IU]/L High 0.270-4.200 [facility] Comment on above: Order Comment: Speci men Type: BLOOD SPECIMEN Ordering Facility: [facility] Address: [address] [place] [address] Result Comment: If t he patient is , TSH reference range varies by gestational period: First Trimester (weeks 9-12): 0.180-2.990 mIU/L Second Trimester: 0.110-3.980 mIU/L Third Trimester: 0.480-4.710 mIU/L Maicol Carlin et al. A Practical Approach for the Verifications and Determination of Site- and Trimester-Specific Reference Intervals for Thyroid Function tests in . Thyroid, 2019:29:3:412-420. Max Miranda, et al. 2017 Guidelines of the [place] Thyroid Association for the Diagnosis and Management of Thyroid Disease during and the . Thyroid, 2017:27:3:315-389. Performed By: #### 5 195-3, 60748-7, 62440-7, 31555-7 #### [facility] CLIA [id number] [address] [place] [address] [place] Urinalysis complete panel (U )on 02-14-2025 BACTERIA UL >9821 High Negative [facility] Comment on above: Order Comment: Speci men Type: BLOOD SPECIMEN Ordering Facility: [facility] Address: [address] [place] [address] Performed By: #### 5 195-3, 13544-5, 85806-0, 33669-8 #### [facility] CLIA [id number] [address] [place], [place] [address] [place] Bilirubin Ql (U) Negative Normal Negative [facility] Comment on above: Order Comment: Speci men Type: BLOOD SPECIMEN Ordering Facility: [facility] Address: [address] [place] [address] Performed By: #### 5 195-3, 50700-9, 96702-0, 01454-5 #### [facility] CLIA [id number] [address] [place] [address] [place] Clarity (Unsp spec) Cloudy Abnormal Clear [facility] Comment on above: Order Comment: Speci men Type: BLOOD SPECIMEN Ordering Facility: [facility] Address: [address] [place] [address] Performed By: #### 5 195-3, 44256-1, 21883-9, 91598-8 #### [facility] CLIA [id number] [address] [place] [address] [place] Color (U) Yellow Normal Yellow [facility] Comment on above: Order Comment: Speci men Type: BLOOD SPECIMEN Ordering Facility: [facility] Address: [address] [place] [address] Performed By: #### 5 195-3, 47127-1, 98310-7, 48490-8 #### [facility] CLIA [id number] [address] [place] [address] [place] Epithelial cells LM.HPF (Urine sed) [#/Area] Few Normal [facility] Comment on above: Order Comment: Speci men Type: BLOOD SPECIMEN Ordering Facility: [facility] Address: [address] [place] [address] Performed By: #### 5 195-3, 56824-2, 52319-9, 25905-5 #### [facility] CLIA [id number] [address] [place] [address] [place] Glucose Test strip (U) [Mass/Vol] Negative Normal Negative [facility] Comment on above: Order Comment: Speci men Type: BLOOD SPECIMEN Ordering Facility: [facility] Address: [address] [place] [address] Performed By: #### 5 195-3, 31536-2, 52491-5, 41227-5 #### [facility] CLIA [id number] [address] [place] [address] [place] Hemoglobin Ql (U) Negative Normal Negative [facility] Comment on above: Order Comment: Speci men Type: BLOOD SPECIMEN Ordering Facility: [facility] Address: [address] [place] [address] Performed By: #### 5 195-3, 02150-9, 03731-7, 74150-9 #### [facility] CLIA [id number] [address] [place] [address] [place] Hyaline casts (Urine sed) [#/Area] 0 /[LPF] Normal 0 /LPF [facility] Comment on above: Order Comment: Speci men Type: BLOOD SPECIMEN Ordering Facility: [facility] Address: [address] [place] [address] Performed By: #### 5 195-3, 17139-1, 81822-4, 23813-2 #### [facility] CLIA [id number] [address] [place] [address] [place] Ketones Ql (U) Negative Normal Negative [facility] Comment on above: Order Comment: Speci men Type: BLOOD SPECIMEN Ordering Facility: [facility] Address: [address] [place] [address] Performed By: #### 5 195-3, 44908-5, 85227-3, 01876-9 #### [facility] CLIA [id number] [address] [place] [address] [place] Leukocyte esterase Test strip Ql (U) 2+ Abnormal Negative [facility] Comment on above: Order Comment: Speci men Type: BLOOD SPECIMEN Ordering Facility: [facility] Address: [address] [place] [address] Performed By: #### 5 195-3, 75586-6, 97710-5, 17138-8 #### [facility] CLIA [id number] [address] [place] [address] [place] Nitrite Ql (U) Positive Abnormal Negative [facility] Comment on above: Order Comment: Speci men Type: BLOOD SPECIMEN Ordering Facility: [facility] Address: [address] [place] [address] Performed By: #### 5 195-3, 81687-0, 14171-8, 51406-0 #### [facility] CLIA [id number] [address] [place] [address] [place] pH (U) 6.5 [pH] Normal <8.5 [facility] Comment on above: Order Comment: Speci men Type: BLOOD SPECIMEN Ordering Facility: [facility] Address: [address] [place] [address] Performed By: #### 5 195-3, 96307-3, 48288-7, 95833-7 #### [facility] CLIA [id number] [address] [place] [address] [place] Protein (U) [Mass/Vol] Negative Normal Negative [facility] Comment on above: Order Comment: Speci men Type: BLOOD SPECIMEN Ordering Facility: [facility] Address: [address] [place] [address] Performed By: #### 5 195-3, 50086-0, 58843-7, 34715-2 #### [facility] CLIA [id number] [address] [place] [address] [place] RBC LM.HPF (Urine sed) [#/Area] 0-2 /HPF Normal 0-2 /HPF [facility] Comment on above: Order Comment: Speci men Type: BLOOD SPECIMEN Ordering Facility: [facility] Address: [address] [place] [address] Performed By: #### 5 195-3, 72386-6, 08662-6, 25888-1 #### [facility] CLIA [id number] [address] [place] [address] [place] Specific gravity (U) [Rel density] 1.012 Normal 1.005-1.030 [facility] Comment on above: Order Comment: Speci men Type: BLOOD SPECIMEN Ordering Facility: [facility] Address: [address] [place] [address] Performed By: #### 5 195-3, 80476-5, 78417-7, 72517-5 #### [facility] CLIA [id number] [address] [place] [address] [place] Urobilinogen Ql (U) 0.2 EU/dL Normal 0.2-1.0 EU/dL [facility] Comment on above: Order Comment: Speci men Type: BLOOD SPECIMEN Ordering Facility: [facility] Address: [address] [place] [address] Performed By: #### 5 195-3, 08294-1, 81427-9, 33935-9 #### [facility] CLIA [id number] [address] [place] [address] [place] WBC LM.HPF (Urine sed) [#/Area] 6-10 /HPF Abnormal 0-5 /HPF [facility] Comment on above: Order Comment: Speci men Type: BLOOD SPECIMEN Ordering Facility: [facility] Address: [address] [place] [address] Performed By: #### 5 195-3, 64807-2, 96572-9, 22927-1 #### [facility] CLIA [id number] [address] [place] [address] [place] Vit B12 [facility] 07-2 025 Cobalamin (Vitamin B12) [Mass/Vol] 549 pg/mL Normal 232-1245 [facility] Comment on above: Order Comment: Speci men Type: BLOOD SPECIMEN Ordering Facility: [facility] Address: [address] [place] [address] Performed By: #### 2 4323-8, 2132-9 #### [facility] CLIA [id number] [address] [place] [address] [place] 01-19-2025 [place] Telephone ([facility]) -------- TAYA VIVEROS ([id number]) 1980 F U[place] Date Time Provider Department 01/19/25 KAREN COLLDAO During your visit today, we recorded the following information about you: Ej Esquivel RN 01/19/2025 8:53 AM Signed Patient calls to reschedule appointment that she missed on 01/18/2025. Patient thought that she was scheduled today and wanting to change to a phone call or VV. Rescheduled but then realized that patient hasn't been seen since October 2022. Called patient back and detailed message left to call back to schedule an in person wellness visit. Cancelled VV. Please reschedule when returns call. Ej Esquivel RN Allergies As of Date: 01/19/2025 (No Known Allergies) Date Reviewed: 03/12/2024 Reviewed by: Meka Pardo LPN - Fully Assessed Prescriptions as of 01/19/2025 - levothyroxine (SYNTHROID) 50 mcg tablet Take 1 tablet by mouth daily before breakfast. - ergocalciferol 50,000 unit capsule (VITAMIN D2, DRISDOL) Take 1 capsule by mouth two times a week. TO BE TAKEN ORALLY DIRECTED. Take 1 tablet by mouth twice weekly [id number], then decrease to 1 tablet weekly. - buPROPion (WELLBUTRIN) 75 mg tablet Take 1 tablet by mouth twice daily. - albuterol HFA (PROVENTIL HFA, VENTOLIN HFA) 90 mcg/actuation inhaler INHALE 2 PUFFS INSTRUCTED EVERY 4 HOURS NEEDED FOR WHEEZING/SHORTNESS OF BREATH. - lamoTRIgine (LAMICTAL) 25 mg tablet Take 1 tablet by mouth twice daily. Start with one pill at night for a couple weeks and increase to 1 pill 2 times a day for 2 weeks. We can go up on that as needed. - QUEtiapine (SEROQUEL) 25 mg tablet Take 1 tablet by mouth daily at bedtime. Problem List As Of Date 01/19/2025 Noted Resolved History of pulmonary embolism [Z86.711] 11/03/2014 Tobacco smoking complicating [O99.330]11/03/2014 Previous delivery affecting *11/03/2014 control [BPT4152] 11/03/2014 History of depression [Z86.59] 11/03/2014 11/03/2014 Anxiety [F41.9] 11/03/2014 Grand multipara [Z64.1] 11/25/2014 Supervision of other high-risk [O09.8*01/26/2015 Depression [F32.A] 03/06/2015 Encounter Status:Closed by EJ ESQUIVEL on 01/19/25 Normal [facility] Urine Cultureon 06-16-2024 [facility] Mixed Gram Positive Organisms Howard Count 11,000-25,000 MIXC Mixed contaminants. Submit a new specimen if indicated. Normal [facility] Comment on above: Performed By: #### M 100.2200 #### [facility] [address] [place], [address] CBC W/Diff, Automatedon Absolute Lymph 0.93 X10 3/uL Normal 0.83-4.51 [facility] Comment on above: Performed By: #### L 100.0100 #### [facility] [address] [place], [address] Absolute Neut 10.6 X10 3/uL High 2.0-7.7 [facility] Comment on above: Performed By: #### L 100.0100 #### [facility] [address] [place], [address] Basophils/100 WBC (Bld) 0.4 % Normal 0-1 [facility] Comment on above: Performed By: #### L 100.0100 #### [facility] [address] [place], [address] Eosinophils/100 WBC (Bld) 0.0 % Normal 0-5 [facility] Comment on above: Performed By: #### L 100.0100 #### [facility] [address] [place], [address] Erythrocyte distribution width (RBC) [Ratio] 15.0 % High 11.6-14.6 [facility] Comment on above: Performed By: #### L 100.0100 #### [facility] [address] [place], [address] Hematocrit (Bld) [Volume fraction] 44.1 % Normal 37-47 [facility] Comment on above: Performed By: #### L 100.0100 #### [facility] [address] [place], [address] Hemoglobin (Bld) [Mass/Vol] 15.0 g/dL Normal 12.0-15.0 [facility] Comment on above: Performed By: #### L 100.0100 #### [facility] [address] [place], [address] IG% 0.400 Normal 0.0-0.9 [facility] Comment on above: Result Comment: IG% - Immature Granulocytes (promyelocytes, myelocytes and metamyelocytes) > 1% indicates that a LEFT SHIFT is Present. Performed By: #### L 100.0100 #### [facility] [address] [place], [address] Lymphocytes/100 WBC (Bld) 7.6 % Low 19-41 [facility] Comment on above: Performed By: #### L 100.0100 #### [facility] [address] [place], [address] MCH (RBC) [Entitic mass] 28.0 pg Normal 27.0-32.0 [facility] Comment on above: Performed By: #### L 100.0100 #### [facility] [address] [place], [address] MCHC (RBC) [Mass/Vol] 34.0 g/dL Normal 32-36 [facility] Comment on above: Performed By: #### L 100.0100 #### [facility] [address] [place], [address] MCV (RBC) [Entitic vol] 82.4 fL Normal 81-99 [facility] Comment on above: Performed By: #### L 100.0100 #### [facility] [address] [place], [address] Monocytes/100 WBC (Bld) 4.7 % Normal 0-10 [facility] Comment on above: Performed By: #### L 100.0100 #### [facility] [address] [place], [address] Neutrophils/100 WBC (Bld) 86.9 % High 47-70 [facility] Comment on above: Performed By: #### L 100.0100 #### [facility] [address] [place], [address] Nucleated RBC (Bld) [#/Vol] 0 10*3/uL Normal 0-5 [facility] Comment on above: Performed By: #### L 100.0100 #### [facility] [address] [place], [address] Platelet mean volume (Bld) [Entitic vol] 9.7 fL Normal 6.2-12.0 [facility] Comment on above: Performed By: #### L 100.0100 #### [facility] [address] [place], [address] Platelets (Bld) [#/Vol] 220 10*3/uL Normal 150-450 [facility] Comment on above: Performed By: #### L 100.0100 #### [facility] [address] [place], [address] RBC (Bld) [#/Vol] 5.35 10*6/uL Normal 4.2-5.[address] [facility] Comment on above: Performed By: #### L 100.0100 #### [facility] [address] [place], [address] RDW SD 45.0 fl High 35.1-43.9 [facility] Comment on above: Performed By: #### L 100.0100 #### [facility] [address] [place], [address] WBC (Bld) [#/Vol] 12.2 10*3/uL High 4.4-11.[address] [facility] Comment on above: Performed By: #### L 100.0100 #### [facility] [address] [place], [address] Comprehensive Metabolic Prof ilon 06-14-2024 Albumin [Mass/Vol] 4.3 g/dL Normal 3.2-5.0 [facility] Comment on above: Performed By: #### L 500.4050, L501.2450 #### [facility] [address] [place], [address] Albumin/Globulin [Mass ratio] 0.9 {ratio} Normal 0.9-2.4 [facility] Comment on above: Performed By: #### L 500.4050, L501.2450 #### [facility] [address] [place], [address] ALK P 77 U/L Normal 45-117 [facility] Comment on above: Performed By: #### L 500.4050, L501.2450 #### [facility] [address] [place], [address] ALT [Catalytic activity/Vol] 70 U/L High 13-56 [facility] Comment on above: Performed By: #### L 500.4050, L501.2450 #### [facility] [address] [place], [address] AST [Catalytic activity/Vol] 94 U/L High 15-37 [facility] Comment on above: Performed By: #### L 500.4050, L501.2450 #### [facility] [address] [place], [address] Bilirubin [Mass/Vol] 1.50 mg/dL High 0.20-1.00 [facility] Comment on above: Result Comment: For patients on eltrombopag therapy, use of Dimension [place] TBIL is not recommended. Performed By: #### L 500.4050, L501.2450 #### [facility] [address] [place], [address] BUN/CRE 7.9 RATIO Low 10-20 [facility] Comment on above: Performed By: #### L 500.4050, L501.2450 #### [facility] [address] [place], [address] CA,Total 10.7 mg/dL High 8.5-10.1 [facility] Comment on above: Performed By: #### L 500.4050, L501.2450 #### [facility] [address] [place], [address] Chloride [Moles/Vol] 94 mmol/L Low 98-107 [facility] Comment on above: Performed By: #### L 500.4050, L501.2450 #### [facility] [address] [place], [address] CO2 [Moles/Vol] 12.0 mmol/L Low 21.0-32.0 [facility] Comment on above: Performed By: #### L 500.4050, L501.2450 #### [facility] [address] [place], [address] Creatinine [Mass/Vol] 1.01 mg/dL Normal 0.55-1.02 [facility] Comment on above: Result Comment: The validity of the calculated GFR GFRAA in patients over 70 years has not been determined. Clinical correlation is essential. Performed By: #### L 500.4050, L501.2450 #### [facility] [address] [place], [address] ECRCL 60.64 ml/min Normal [facility] Comment on above: Performed By: #### L 500.4050, L501.2450 #### [facility] [address] [place], [address] EST GFR - AA 77 mL/min Normal >60 [facility] Comment on above: Result Comment: Afri can [place] GFR Calc Performed By: #### L 500.4050, L501.2450 #### [facility] [address] [place], [address] GAP 27 High 5-15 [facility] Comment on above: Performed By: #### L 500.4050, L501.2450 #### [facility] [address] [place], [address] GFR/1.73 sq M.predicted among non-blacks MDRD (S/P/Bld) [Vol rate/Area] 64 mL/min/{1.73_m2} Normal >60 [facility] Comment on above: Result Comment: Non- GFR Calc Performed By: #### L 500.4050, L501.2450 #### [facility] [address] [place], [address] Globulin (S) [Mass/Vol] 4.7 g/dL High 2.2-4.2 [facility] Comment on above: Performed By: #### L 500.4050, L501.2450 #### [facility] [address] [place], [address] Glucose [Mass/Vol] 123 mg/dL High 74-106 [facility] Comment on above: Result Comment: Fast ing Glucose result from 100 to 125 mg/dL suggests IMPAIRED HOMEOSTASIS per A.D.A. criteria. Performed By: #### L 500.4050, L501.2450 #### [facility] [address] [place], [address] Potassium [Moles/Vol] 2.6 mmol/L Invalid Interpretation Code 3.5-5.1 [facility] Comment on above: Performed By: #### L 500.4050, L501.2450 #### [facility] [address] [place], [address] Sodium [Moles/Vol] 133 mmol/L Low 136-145 [facility] Comment on above: Result Comment: Crit ical Result(s) Called at: 14:59:57 06/14/2024 by: LEXIE LIU to Chiquita Godfrey. Results read back by same. Performed By: #### L 500.4050, L501.2450 #### [facility] [address] [place], [address] T PROT 9.0 g/dL High 6.4-8.2 [facility] Comment on above: Performed By: #### L 500.4050, L501.2450 #### [facility] [address] [place], [address] Urea nitrogen [Mass/Vol] 8 mg/dL Normal 7-18 [facility] Comment on above: Performed By: #### L 500.4050, L501.2450 #### [facility] [address] [place], [address] Emergency Department Summary on 06-14-2024 Emergency Department Summary [facility] Medical Records Department [address] [address] Emergency Department Summary 06/14/24 MR#: [id number] Acct: [id number] Name: TAYA VIVEROS Rep #: [id number] : 1980 43 From: Paul Lombardi DO PCP: Dr. Mikaela Chavarria MD Status:REG ER Location: ED HPI History of Present Illness Chief Complaint: Cold Sx Narrative Narrative: Chief complaint and HPI: 43-year-old female with history of anxiety depression and previous C- section presents for evaluation of nausea and vomiting. Onset of symptoms yesterday. Patient states yesterday she developed nausea and vomiting that is continued and today. She states she has a mild sore throat secondary to the vomiting. She denies any fever, chills, URI symptoms, cough, shortness of breath, chest pain, abdominal pain, constipation, diarrhea, dysuria, hematuria. Endorses decreased p.o. intake. Patient has been using Phenergan at home for nausea with some relief. Denies any sick contacts Review of systems: See HPI Medications: As listed on the chart Allergies: As listed on the chart PFSH: Per chart Vital signs: As listed on the chart. Reviewed. Physical exam: Gen: A O x3, NAD Head: Normocephalic, atraumatic Eyes: No sclera icterus, conjunctiva clear ENT: Dry mucous membranes Neck: Trachea midline, No JVD CV: RRR, no murmurs, no peripheral edema Resp: Lungs CTA BL, no w/r/c GI: Abd soft, non-distended, non-tender, no r/r/g Musc: Full ROM, no deformity Skin: Warm, dry Neuro: Alert, oriented, grossly intact, sensation intact Psych: Cooperative, appropriate mood and affect PFSH PFSH Medical History Alcohol use Anxiety and depression Asthma Memo's thyroiditis Hx of fracture of pelvis Tobacco use Home Medications ???Medication ???Instructions ???Recorded ???Last Taken ???Type alprazolam 1 mg tablet 1 mg PO DAILY PRN Anxiety 07/04/21 Unknown History bupropion HCl 300 mg 24 hr tablet, 300 mg PO DAILY 07/04/21 Unknown History extended release fluoxetine 20 mg capsule 20 mg PO DAILY depression 01/05/22 Unknown History albuterol sulfate 90 mcg/actuation 2 puff inhalation Q4H PRN 03/05/22 Unknown History aerosol inhaler Shortness Of Breath Or Wheezing potassium chloride 20 mEq 20 meq PO DAILY #10 tabs 03/10/22 Unknown Rx tablet,extended release benzonatate 200 mg capsule 200 mg PO BID PRN cough #10 caps 04/02/22 Unknown Rx ondansetron 4 mg disintegrating 4 mg PO Q8H PRN nausea and 04/02/22 Unknown Rx tablet vomiting #10 tabs potassium chloride 20 mEq 20 meq PO BID #6 tabs 04/02/22 Unknown Rx tablet,extended release tramadol 50 mg tablet 50 mg PO Q6H PRN pain #10 tabs 04/02/22 Unknown Rx cephalexin 500 mg capsule 500 mg PO BID 5 days #10 caps 06/14/24 Unknown Rx ondansetron 4 mg disintegrating 4 mg PO Q8H PRN PRN Nausea #10 tabs 06/14/24 Unknown Rx tablet Allergy/AdvReac Type Severity Reaction Status Date / Time No Known Allergies Allergy Verified 06/14/24 14:11 Family History Father Heart disease Mother CVA (cerebral vascular accident) Surgical History Status post laparoscopic cholecystectomy History of pelvic surgery Hx of section H/O tubal ligation Social History household members: family and children Smoking Status: Current every day smoker tobacco type: e-cigarettes Electronic Cigarette Use: with nicotine alcohol intake: current alcohol intake frequency: 0-2 drinks per day details: Drinks 1 vodka drink 1-2 ounces up to once q HS. substance use type: does not use EXAM Physical Exam Const Vital Signs: 06/14/24 14:11 06/14/24 15:23 06/14/24 17:37 Temperature 96.5 F L Temperature Source Temporal Pulse Rate 127 H 103 H 94 Respiratory Rate 18 18 Blood Pressure 134/99 H 110/84 H 128/90 H Blood Pressure Mean 110 92 102 Pulse Ox 100 100 Oxygen Delivery Method Room Air Room Air MDM MDM MDM Narrative Medical decision making narrative: 43-year-old female presents for evaluation of nausea and vomiting. Denies all other associated symptoms including abdominal pain. Physical exam is unremarkable except for dry mucous membranes. Differential diagnosis includes but is not limited to viral illness, dehydration, electrolyte abnormality, SHAJI, UTI. NS bolus and Zofran ordered. I do not think any imaging is needed at this time. Laboratory workup ordered. CBC with mild leukocytosis at 12.2. CMP shows hypokalemia of 2.6. Patient has a history of hypokalemia. She is currently on p.o. potassium pills at home. She has been as low as 2.8. Her worsening hypokalemia is likely secondary to her nausea and vomiting. 60 mill e (more content not included)... Normal [facility] Lipaseon 06-14-2024 Lipase [Catalytic activity/Vol] 67 U/L Normal 13-75 [facility] Comment on above: Result Comment: Alfred leyva note: LIPASE revised reference range effective 22. New Lipase methodology. Expected to produce lower values than the previous assay method. NEW Reference Range: 13 - 75 U/L Performed By: #### L 500.4050, L501.2450 #### [facility] [address] [place], [address] Magnesiumon 06-14-2024 Magnesium [Mass/Vol] 2.2 mg/dL Normal 1.6-2.6 [facility] Comment on above: Performed By: #### L 501.5200 #### [facility] [address] [place], [address] Potassiumon 06-14-2024 Potassium [Moles/Vol] 3.3 mmol/L Low 3.5-5.1 [facility] Comment on above: Performed By: #### L 501.5600 #### [facility] [address] [place], [address] Urinalysis, Completeon 06-14 BACTERIA 1+ /hpf Normal None Seen [facility] Comment on above: Order Comment: CLEAN CATCH Performed By: #### L 400.0001 #### [facility] [address] [place], [address] CAST,HYALINE 5-10 SEEN Normal 0-5 [facility] Comment on above: Order Comment: CLEAN CATCH Performed By: #### L 400.0001 #### [facility] [address] [place], [address] Mucus Ql (Urine sed) 2+ /hpf Normal [facility] Comment on above: Order Comment: CLEAN CATCH Performed By: #### L 400.0001 #### [facility] [address] [place], [address] RBC 0-5 SEEN Normal 0-5 [facility] Comment on above: Order Comment: CLEAN CATCH Performed By: #### L 400.0001 #### [facility] [address] [place], [address] WBC 0-5 SEEN Normal 0-5 [facility] Comment on above: Order Comment: CLEAN CATCH Performed By: #### L 400.0001 #### [facility] [address] [place], [address] EPI,SQUAMOUS 5-10 SEEN Normal 5-10 [facility] Comment on above: Order Comment: CLEAN CATCH Performed By: #### L 400.0001 #### [facility] [address] [place], [address] CNPNon 03-14-2024 [facility] Telephone ([facility]) -------- TAYA VIVEROS ([id number]) 1980 F UPA Date Time Provider Department 03/14/24 AKHIL VILLARREAL [facility] During your visit today, we recorded the following information about you: Akhil Villarreal PA 03/14/2024 10:58 AM Signed Please contact patient and let her know her urine culture did reveal bacterial growth, she does have a UTI as well as the BV/trichomonas. She needs to continue and finish the Bactrim that was given to her at her visit. Minnie Ashby MA 03/14/2024 11:06 AM Signed Patient given results and verbalized understanding of instructions given. Minnie Ashby MA Allergies As of Date: 03/14/2024 (No Known Allergies) Date Reviewed: 03/12/2024 Reviewed by: Meka Pardo LPN - Fully Assessed Reason for Visit: Results [95] Prescriptions as of 03/14/2024 - metroNIDAZOLE (FLAGYL) 500 mg tablet Take 1 tablet by mouth two times a day for 7 days. - sulfamethoxazole-trimeth oprim (BACTRIM DS) 800-160 mg per tablet Take 1 tablet by mouth two times a day for 3 days. - levothyroxine (SYNTHROID) 50 mcg tablet Take 1 tablet by mouth daily before breakfast. - ergocalciferol 50,000 unit capsule (VITAMIN D2, DRISDOL) Take 1 capsule by mouth two times a week. TO BE TAKEN ORALLY DIRECTED. Take 1 tablet by mouth twice weekly [id number], then decrease to 1 tablet weekly. - buPROPion (WELLBUTRIN) 75 mg tablet Take 1 tablet by mouth twice daily. - albuterol HFA (PROVENTIL HFA, VENTOLIN HFA) 90 mcg/actuation inhaler INHALE 2 PUFFS INSTRUCTED EVERY 4 HOURS NEEDED FOR WHEEZING/SHORTNESS OF BREATH. - lamoTRIgine (LAMICTAL) 25 mg tablet Take 1 tablet by mouth twice daily. Start with one pill at night for a couple weeks and increase to 1 pill 2 times a day for 2 weeks. We can go up on that as needed. - QUEtiapine (SEROQUEL) 25 mg tablet Take 1 tablet by mouth daily at bedtime. 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 She also tested positive for trichomonas. Trichomonas is a sexually transmitted infection which can give similar symptoms to BV. Both are treated with the same antibiotic. Partners should be evaluated for trichomonas treatment also. Metronidazole Rx sent to the pharmacy. Negative for gonorrhea and chlamydia. Urine culture is pending - continue bactrim prescribed at the visit. Meka Pardo LPN 03/13/2024 8:43 AM Signed Left message for patient to return call. HUMPHREY Leon Brandi, LPN 03/13/2024 11:28 AM Signed Patient given results and verbalized understanding of instructions given. Meka Pardo LPN Allergies As of Date: 03/13/2024 (No Known Allergies) Date Reviewed: 03/12/2024 Reviewed by: Meka Pardo LPN - Fully Assessed Reason for Visit: Results [95] Cmt: BV (+), Trich (+) Order(s):metroNIDAZOLE (FLAGYL) 500 mg tabletTake 1 tablet by mouth two times a day for 7 days.Disp: 14 tabletRfl: 0 Prescriptions as of 03/13/2024 - metroNIDAZOLE (FLAGYL) 500 mg tablet Take 1 tablet by mouth two times a day for 7 days. - sulfamethoxazole-trimeth oprim (BACTRIM DS) 800-160 mg per tablet Take 1 tablet by mouth two times a day for 3 days. - levothyroxine (SYNTHROID) 50 mcg tablet Take 1 tablet by mouth daily before breakfast. - ergocalciferol 50,000 unit capsule (VITAMIN D2, DRISDOL) Take 1 capsule by mouth two times a week. TO BE TAKEN ORALLY DIRECTED. Take 1 tablet by mouth twice weekly t2rpdsz, then decrease to 1 tablet weekly. - buPROPion (WELLBUTRIN) 75 mg tablet Take 1 tablet by mouth twice daily. - albuterol HFA (PROVENTIL HFA, VENTOLIN HFA) 90 mcg/actuation inhaler INHALE 2 PUFFS INSTRUCTED EVERY 4 HOURS NEEDED FOR WHEEZING/SHORTNESS OF BREATH. - lamoTRIgine (LAMICTAL) 25 mg tablet Take 1 tablet by mouth twice daily. Start with one pill at night for a couple weeks and increase to 1 pill 2 times a day for 2 weeks. We can go up on that as needed. - QUEtiapine (SEROQUEL) 25 mg tablet Take 1 tablet by mouth daily at bedtime. 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 Encounter Status:Closed by MEKA PARDO on 03/13/24 Normal [facility] BACTERIAL VAGINOSIS NAATon 0 03-12-2024 Lactobacillus crispatus+gasseri+ jensenii + Gardnerella vaginalis + Atopobium vaginae rRNA NELI+probe Ql (Vag fld) Positive Abnormal Negative for bacterial vaginosis [facility] Comment on above: Order Comment: Speci men Type: BLOOD SPECIMEN Ordering Facility: [facility] Address: [address] [place] [address] Performed By: #### 5 195-3, 73303-4, 12283-7, 46034-1 #### [facility] [place] [id number] [address] [place], [place] [address] [address] [place] Bacteria Ur Culton 4 Bacteria identified Cx Nom (U) ORGANISM ID: 1 >=100,000 CFU/ml Klebsiella pneumoniae ORGANISM ID: 1 (KLEBSIELLA PNEUMONIAE) ANTIBIOTIC INTERPRETATION CHINO STATUS REFERENCE RANGE Ampicillin R F Cefazolin S <=4 F Susceptible 0-16 , Intermediate <0 or >16 , Resistant >16 For uncomplicated urinary tract infections, cefazolin results can be used to predict susceptibility or resistance to cephalexin. Ceftriaxone S <=1 F Susceptible <=1 , Intermediate >1 , Resistant >=4 Cefepime S <=1 F Susceptible <=2 , Susceptible-Dose Dependent >2 , Resistant >=16 Ertapenem S <=0.5 F Susceptible <=0.5 , Intermediate >.5 , Resistant >1 Meropenem S <=0.25 F Susceptible <=1 , Intermediate >1 , Resistant >2 Ampicillin/Sulbact S <=2 F Susceptible <=8 , Intermediate >8 , Resistant >16 Piperacillin/Tazobac S <=4 F Susceptible <16 , Susceptible-Dose Dependent >=16 , Resistant >=32 Gentamicin S <=1 F Susceptible <=2 , Intermediate >2 , Resistant >=8 Tobramycin S <=1 F Susceptible <4 , Intermediate >=4 , Resistant >=8 Trimeth sulfameth S <=20 F Susceptible <=40 , Resistant >40 Ciprofloxacin S <=0.25 F Susceptible <0.5 , Intermediate >=.5 , Resistant >=1 Nitrofurantoin S <=16 F Susceptible <=32 , Intermediate >32 , Resistant >64 Abnormal [facility] Comment on above: Performed By: #### 2 4323-8, 2132-9 #### [facility] CLIA [id number] [address] [place] [address] [place] C. trachomatis+N. gonorrhoea e DNA NELI+probe Ql (Unsp spec)on 03-12-2024 C. trachomatis rRNA NELI+probe Ql (Unsp spec) Negative Normal Negative for Chlamydia trachomatis by amplificaton [facility] Comment on above: Order Comment: Speci men Type: BLOOD SPECIMEN Ordering Facility: [facility] Address: [address] [place] [address] Performed By: #### 5 195-3, 08429-9, 08495-6, 95966-3 #### [facility] CLIA [id number] [address] [place] [address] [place] N. gonorrhoeae rRNA NELI+probe Ql (Unsp spec) Negative Normal Negative for Neisseria gonorrhoeae by amplification [facility] Comment on above: Order Comment: Speci men Type: BLOOD SPECIMEN Ordering Facility: [facility] Address: [address] [place] [address] Performed By: #### 5 195-3, 52817-8, 21002-1, 66221-1 #### [facility] CLIA [id number] [address] [place] [address] [place] HARSHAD/TRICHOMONAS NAATon 0 03-12-2024 C. glabrata RNA NELI+probe Ql (Vag fld) Negative Normal Negative for Harshad glabrata [facility] Comment on above: Order Comment: Speci men Type: BLOOD SPECIMEN Ordering Facility: [facility] Address: [address] [place] [address] Performed By: #### 5 195-3, 79084-1, 35311-4, 22857-9 #### [facility] CLIA [id number] [address] [place] [address] [place] Harshad sp DNA NELI+probe Ql (Vag fld) Negative Normal Negative for Harshad species [facility] Comment on above: Order Comment: Speci men Type: BLOOD SPECIMEN Ordering Facility: [facility] Address: [address] [place] [address] Performed By: #### 5 195-3, 22758-4, 88385-3, 94595-3 #### [facility] CLIA [id number] [address] [place] [address] [place] T. vaginalis DNA NELI+probe Ql (Unsp spec) Positive Abnormal Negative for Trichomonas vaginalis by amplification [facility] Comment on above: Order Comment: Speci men Type: BLOOD SPECIMEN Ordering Facility: [facility] Address: [address] [place] [address] Performed By: #### 5 195-3, 84231-6, 27169-1, 70305-8 #### [facility] CLIA [id number] [address] [place] [address] [place] CNOVon 03-12-2024 CNOV Office Visit (UCWSTR ) -------- TAYA VIVEROS ([id number]) 1980 F [place] Date Time Provider Department 03/12/24 12:15 PM NADIRA SANDERSON [facility] During your visit today, we recorded the following information about you: Temperature Pulse Respiration Blood pressure 98.3 degrees 109/minute 20/minute 114/78 Weight Last Period 62 kg 02/18/24 Nadira Sanderson APRN.TECHNICIAN [employer] 03/12/2024 12:58 PM Signed This note was created using NoteWriter. Subjective Taya Viveros is a 43 year old female. 43 year old female with PMH anxiety and depression presents for possible UTI Acute onset 2 weeks ago +burning with urination +frequency +burning Denies abdominal pain Denies flank pain Denies N/V/D Denies vaginal discharge Denies vaginal bleeding LMP-a month ago Tubal ligation She is requesting to be evaluated for STD's The history is provided by the patient. No speech and language clinician was used. UTI This is a new problem. The current episode started more than 1 week ago. The problem occurs every urination. The problem has not changed since onset.The quality of the pain is described as burning. The pain is at a severity of 5/10. The pain is moderate. There has been no fever. She is Sexually active. There is No history of pyelonephritis. Associated symptoms include frequency and urgency. Pertinent negatives include no chills, no sweats, no nausea, no vomiting, no discharge, no hematuria, no hesitancy, no possible and no flank pain. She has tried nothing for the symptoms. Her past medical history does not include kidney stones, single kidney, urological procedure, recurrent UTIs, urinary stasis or catheterization. PAST MEDICAL HISTORY No date: Dysthymic disorder Comment: Depression (non-psychotic) No date: Fracture Comment: pelvis 2004: Pulmonary embolism (HCC) Comment: on depoprovera PAST SURGICAL HISTORY No date: ANESTH, SECTION 1999, , ,10/29/11: DELIVERY ONLY No date: PAST SURGICAL HISTORY OF Comment: PLATES AND PINS PLACED IN LEFT HIP 03/08/2022: REMOVAL GALLBLADDER ALLERGIES Patient has no known allergies. MEDICATIONS albuterol HFA (PROVENTIL HFA, VENTOLIN HFA) 90 mcg/actuation inhaler INHALE 2 PUFFS INSTRUCTED EVERY 4 HOURS NEEDED FOR WHEEZING/SHORTNESS OF BREATH. QUEtiapine (SEROQUEL) 25 mg tablet Take 1 tablet by mouth daily at bedtime. sulfamethoxazole-trimeth oprim (BACTRIM DS) 800-160 mg per tablet Take 1 tablet by mouth two times a day for 3 days. levothyroxine (SYNTHROID) 50 mcg tablet TAKE 1 TABLET BY MOUTH EVERY DAY BEFORE BREAKFAST (Patient not taking: Reported on 03/12/2024) ergocalciferol 50,000 unit capsule (VITAMIN D2, DRISDOL) Take 1 capsule by mouth two times a week. TO BE TAKEN ORALLY DIRECTED. Take 1 tablet by mouth twice weekly [id number], then decrease to 1 tablet weekly. (Patient not taking: Reported on 03/12/2024) buPROPion (WELLBUTRIN) 75 mg tablet Take 1 tablet by mouth twice daily. (Patient not taking: Reported on 03/12/2024) lamoTRIgine (LAMICTAL) 25 mg tablet Take 1 tablet by mouth twice daily. Start with one pill at night for a couple weeks and increase to 1 pill 2 times a day for 2 weeks. We can go up on that as needed. (Patient not taking: Reported on 03/12/2024) FAMILY HISTORY Problem Relation Age of Onset Arthritis Paternal Grandmother Breast Cancer Paternal Grandmother Arthritis Paternal Grandfather Heart Paternal Grandfather Heart Paternal Uncle P UNCLE X 4 WITH [place] Social History Tobacco Use Smoking status: Former Years: 14 Types: Cigarettes Smokeless tobacco: Never Tobacco comments: Pt is using E-cigarettes Vaping Use Vaping Use: Never used Substance Use Topics Alcohol use: No Drug use: No Review of Systems Constitutional: Negative for chills. Eyes: Negative for photophobia, pain, discharge, redness and itching. Respiratory: Negative for apnea, choking and chest tightness. Cardiovascular: Negative for chest pain and palpitations. Gastrointestinal: Negative for abdominal pain, nausea and vomiting. Genitourinary: Positive for dysuria, frequency and urgency. Negative for flank pain, hematuria, hesitancy, vaginal bleeding and vaginal discharge. Musculoskeletal: Negative for back pain. Skin: Negative for color change, pallor, rash and wound. Allergic/Immunologic: Negative for environmental allergies, food allergies and immunocompromised state. Neurological: Negative for dizziness, seizures, facial asymmetry, light-headedness, numbness and headaches. Hematological: Negative for adenopathy. Does not bruise/bleed easily. Psychiatric/Behavioral: Negative for agitation and behavioral problems. Objective BP 114/78 Pulse 109 Temp 36.8 ?C (98.3 ?F) Resp 20 Wt 62 kg (136 lb 11 oz) LMP 02/18/2024 (Approximate) SpO2 100% BMI 24.21 kg/m? Physical Exam Vitals and nursing note reviewed. Con (more content not included)... Normal [facility] UA DIP, URINE (POC)on 2023 BILIRUBIN UA (POCT) Negative Negative [facility] CLARITY UA (POCT) Cloudy [facility] COLOR UA (POCT) Yellow [facility] GLUCOSE UA (POCT) Negative Negative mg/dL [facility] Hemoglobin Ql (U) Trace-intact Abnormal Negative [facility] Interpretation and review of laboratory results Abnormal [facility] KETONE UA (POCT) Negative Negative mg/dL [facility] LEUKOCYTES UA (POCT) Small Abnormal Negative [facility] NITRITE UA (POCT) Positive Abnormal Negative [facility] PH UA (POCT) 6.0 4.5 - 8.0 [facility] Protein Ql (U) Negative Negative mg/dL [facility] SPECIFIC GRAVITY UA (POCT) <=1.005 Abnormal 1.005 - 1.030 [facility] UROBILINOGEN UA (POCT) 0.2 Normal E.U./dL [facility] Location:[facility], [address] [place] [address], [place], [place], [id number] [place] [address] POINT OF CARE [facility] Absolute lymphocyte counton 04-02-2022 Lymphocytes Auto (Unsp spec) [#/Vol] 1.51 10*3/uL 0.83-4.51 [facility] Work Phone: Basophil percentageon 2021 Amylase [Catalytic activity/Vol] 26 U/L 25-115 [facility] Work Phone: Basophils/100 WBC (Bld) 0.4 % 0-1 [facility] Work Phone: Bilirubin [Mass/Vol] 0.60 mg/dL 0.20-1.00 [facility] Work Phone: [phone] Comment on above: For patients on eltr ombopag therapy, use of Dimension [place] TBIL is not recommended. Chloride [Moles/Vol] 100 mmol/L 98-107 [facility] Work Phone: Eosinophils/100 WBC (Bld) 0.1 % 0-5 [facility] Work Phone: Glucose [Mass/Vol] 97 mg/dL 74-106 [facility] Work Phone: [phone] Neutrophils (Bld) [#/Vol] 7.5 10*3/uL 2.0-7.7 [facility] Work Phone: Neutrophils/100 WBC (Bld) 75.4 % 47-70 [facility] Work Phone: [phone] Potassium [Moles/Vol] 3.0 mmol/L 3.5-5.1 [facility] Work Phone: Protein [Mass/Vol] 7.7 g/dL 6.4-8.2 [facility] Work Phone: [phone] Sodium [Moles/Vol] 137 mmol/L 136-145 [facility] Work Phone: WBC (Bld) [#/Vol] 10.0 10*3/uL 4.4-11.[address] [facility] Work Phone: Blood erythrocytes count (nu mber/volume)on 04-02-2022 RBC (Bld) [#/Vol] 3.98 10*6/uL 4.2-5.[address] [facility] Work Phone: Blood hemoglobin measurement (mass/volume)on 04-02-2022 Hemoglobin (Bld) [Mass/Vol] 11.8 g/dL 12.0-15.0 [facility] Work Phone: [phone] Blood lymphocytes/100 leukoc yteson 04-02-2022 Lymphocytes/100 WBC (Bld) 15.2 % 19-41 [facility] Work Phone: [phone] Blood monocytes/100 leukocyt eson 04-02-2022 Monocytes/100 WBC (Bld) 8.2 % 0-10 [facility] Work Phone: Blood platelet mean volumeon 04-02-2022 Platelet mean volume (Bld) [Entitic vol] 10.2 fL 6.2-12.0 [facility] Work Phone: Determination of erythrocyte mean corpuscular volume (MCV)on 04-02-2022 MCV (RBC) [Entitic vol] 90.5 fL 81-99 [facility] Work Phone: Erythrocyte sedimentation ra susan 04-02-2022 ESR (Bld) [Velocity] 89 mm/h 0-30 [facility] Work Phone: Hematocrit Auto (Bld) [Volum e fraction]on 04-02-2022 Hematocrit (Bld) [Volume fraction] 36.0 % 37-47 [facility] Work Phone: Laboratory - Chemistry and C hemistry - challengeon 04-02-2022 ALP [Catalytic activity/Vol] 115 U/L 45-117 [facility] Work Phone: ALT [Catalytic activity/Vol] 48 U/L 13-56 [facility] Work Phone: [phone] CO2 [Moles/Vol] 26.0 mmol/L 21.0-32.0 [facility] Work Phone: Globulin (S) [Mass/Vol] 5.1 g/dL 2.2-4.2 [facility] Work Phone: [phone] Lipase [Catalytic activity/Vol] 124 U/L 73-393 [facility] Work Phone: Urea nitrogen/Creatinin e [Mass ratio] 4.6 mg/mg 10-20 [facility] Work Phone: Laboratory - Hematology and Cell countson 04-02-2022 Erythrocyte distribution width (RBC) [Entitic vol] 51.4 fL 35.1-43.9 [facility] Work Phone: Erythrocyte distribution width (RBC) [Ratio] 15.4 % 11.6-14.6 [facility] Work Phone: Immature granulocytes/100 WBC (Bld) 0.700 % 0.0-0.9 [facility] Work Phone: Comment on above: IG% - Immature Granu locytes (promyelocytes, myelocytes and metamyelocytes) > 1% indicates that a LEFT SHIFT is Present. MCH (RBC) [Entitic mass] 29.6 pg 27.0-32.0 [facility] Work Phone: Nucleated RBC/100 WBC (Bld) [Ratio] 0 % 0-5 [facility] Work Phone: MCHC Auto (RBC) [Mass/Vol]on 04-02-2022 MCHC (RBC) [Mass/Vol] 32.8 g/dL 32-36 [facility] Work Phone: No Panel Informationon 04-02 Estimated GFR (MDRD) Amer 93 mL/min >60 [facility] Work Phone: Comment on above: GFR Calc Estimated GFR (MDRD) Non-Af Amer 77 mL/min >60 [facility] Work Phone: Comment on above: Non- GFR Calc Platelets bldon 04-02-2022 Platelets (Bld) [#/Vol] 495 10*3/uL 150-450 [facility] Work Phone: Serum or plasma C reactive p rotein measurement (mass/volume)on 04-02-2022 CRP [Mass/Vol] 172.00 mg/L 0.0-3.0 [facility] Work Phone: Comment on above: C-Reactive Protein ( CRP) provides useful information for thediagnosis, therapy and monitoring of inflammatory processesand associated diseases. For the evaluation of Relative Riskfor Cardiovascular Disease, a High Sensitivity CRP (HSCRP)should be ordered. Serum or plasma albumin silvino urement (mass/volume)on 04-02-2022 Albumin [Mass/Vol] 2.6 g/dL 3.2-5.0 [facility] Work Phone: Serum or plasma albumin/glob ulin mass ratioon 04-02-2022 Albumin/Globulin [Mass ratio] 0.5 {ratio} 0.9-2.4 [facility] Work Phone: Serum or plasma calcium silvino urement (mass/volume)on 04-02-2022 Calcium [Mass/Vol] 9.0 mg/dL 8.5-10.1 [facility] Work Phone: Serum or plasma creatinine m easurement (mass/volume)on 04-02-2022 Creatinine [Mass/Vol] 0.87 mg/dL 0.55-1.02 [facility] Work Phone: Comment on above: The validity of the calculated GFR & GFRAA in patients over 70 years has not been determined. Clinical correlation is essential. Serum or plasma urea nitroge n measurement (mass/volume)on 04-02-2022 Urea nitrogen [Mass/Vol] 4 mg/dL 7-18 [facility] Work Phone: Thin prep Papanicolaou smear with manual screeningon 04-02-2022 Thin prep Papanicolaou smear with manual screening 25 U/L 15-37 [facility] Work Phone: Thin prep Papanicolaou smear with manual screening 11 5-15 [facility] Work Phone: Absolute lymphocyte counton 03-10-2022 Lymphocytes Auto (Unsp spec) [#/Vol] 0.77 10*3/uL 0.83-4.51 [facility] Work Phone: Basophil percentageon 2021 Potassium [Moles/Vol] 3.4 mmol/L 3.5-5.1 [facility] Work Phone: Basophils/100 WBC (Bld) 0.4 % 0-1 [facility] Work Phone: Bilirubin [Mass/Vol] 1.30 mg/dL 0.20-1.00 [facility] Work Phone: Comment on above: For patients on eltr ombopag therapy, use of Dim[place] TBIL is not recommended. Chloride [Moles/Vol] 105 mmol/L 98-107 [facility] Work Phone: Eosinophils/100 WBC (Bld) 0.0 % 0-5 [facility] Work Phone: Glucose [Mass/Vol] 93 mg/dL 74-106 [facility] Work Phone: Neutrophils (Bld) [#/Vol] 4.1 10*3/uL 2.0-7.7 [facility] Work Phone: Neutrophils/100 WBC (Bld) 74.2 % 47-70 [facility] Work Phone: Protein [Mass/Vol] 5.9 g/dL 6.4-8.2 [facility] Work Phone: Sodium [Moles/Vol] 139 mmol/L 136-145 [facility] Work Phone: WBC (Bld) [#/Vol] 5.5 10*3/uL 4.4-11.0 [facility] Work Phone: Blood erythrocytes count (nu mber/volume)on 03-10-2022 RBC (Bld) [#/Vol] 3.19 10*6/uL 4.2-5.[address] [facility] Work Phone: Blood hemoglobin measurement (mass/volume)on 03-10-2022 Hemoglobin (Bld) [Mass/Vol] 10.0 g/dL 12.0-15.0 [facility] Work Phone: [phone] Blood lymphocytes/100 leukoc yteson 03-10-2022 Lymphocytes/100 WBC (Bld) 14.1 % 19-41 [facility] Work Phone: Blood monocytes/100 leukocyt eson 03-10-2022 Monocytes/100 WBC (Bld) 10.8 % 0-10 [facility] Work Phone: Blood platelet mean volumeon 03-10-2022 Platelet mean volume (Bld) [Entitic vol] 10.5 fL 6.2-12.0 [facility] Work Phone: Determination of erythrocyte mean corpuscular volume (MCV)on 03-10-2022 MCV (RBC) [Entitic vol] 94.4 fL 81-99 [facility] Work Phone: Hematocrit Auto (Bld) [Volum e fraction]on 03-10-2022 Hematocrit (Bld) [Volume fraction] 30.1 % 37-47 [facility] Work Phone: Laboratory - Chemistry and C hemistry - challengeon 03-10-2022 ALP [Catalytic activity/Vol] 70 U/L 45-117 [facility] Work Phone: ALT [Catalytic activity/Vol] 64 U/L 13-56 [facility] Work Phone: CO2 [Moles/Vol] 27.0 mmol/L 21.0-32.0 [facility] Work Phone: Globulin (S) [Mass/Vol] 3.4 g/dL 2.2-4.2 [facility] Work Phone: Magnesium [Mass/Vol] 1.8 mg/dL 1.6-2.6 [facility] Work Phone: Urea nitrogen/Creatinin e [Mass ratio] 5.1 mg/mg 10-20 [facility] Work Phone: Laboratory - Hematology and Cell countson 03-10-2022 Erythrocyte distribution width (RBC) [Entitic vol] 60.7 fL 35.1-43.9 [facility] Work Phone: Erythrocyte distribution width (RBC) [Ratio] 17.4 % 11.6-14.6 [facility] Work Phone: Immature granulocytes/100 WBC (Bld) 0.500 % 0.0-0.9 [facility] Work Phone: Comment on above: IG% - Immature Granu locytes (promyelocytes, myelocytes and metamyelocytes) > 1% indicates that a LEFT SHIFT is Present. MCH (RBC) [Entitic mass] 31.3 pg 27.0-32.0 [facility] Work Phone: Nucleated RBC/100 WBC (Bld) [Ratio] 0 % 0-5 [facility] Work Phone: MCHC Auto (RBC) [Mass/Vol]on 03-10-2022 MCHC (RBC) [Mass/Vol] 33.2 g/dL 32-36 [facility] Work Phone: No Panel Informationon 03-10 Estimated Creatinine Clearance Calc 105.90 ml/min [facility] Work Phone: Estimated GFR (MDRD) Amer 145 mL/min >60 [facility] Work Phone: Comment on above: GFR Calc Estimated GFR (MDRD) Non-Af Amer 120 mL/min >60 [facility] Work Phone: Comment on above: Non- GFR Calc Platelets bldon 03-10-2022 Platelets (Bld) [#/Vol] 177 10*3/uL 150-450 [facility] Work Phone: Serum or plasma albumin silvino urement (mass/volume)on 03-10-2022 Albumin [Mass/Vol] 2.5 g/dL 3.2-5.0 [facility] Work Phone: Serum or plasma albumin/glob ulin mass ratioon 03-10-2022 Albumin/Globulin [Mass ratio] 0.7 {ratio} 0.9-2.4 [facility] Work Phone: Serum or plasma calcium silvino urement (mass/volume)on 03-10-2022 Calcium [Mass/Vol] 8.4 mg/dL 8.5-10.1 [facility] Work Phone: Serum or plasma creatinine m easurement (mass/volume)on 03-10-2022 Creatinine [Mass/Vol] 0.59 mg/dL 0.55-1.02 [facility] Work Phone: Comment on above: The validity of the calculated GFR & GFRAA in patients over 70 years has not been determined. Clinical correlation is essential. Serum or plasma urea nitroge n measurement (mass/volume)on 03-10-2022 Urea nitrogen [Mass/Vol] 3 mg/dL 7-18 [facility] Work Phone: Thin prep Papanicolaou smear with manual screeningon 03-10-2022 Thin prep Papanicolaou smear with manual screening 51 U/L 15-37 [facility] Work Phone: Thin prep Papanicolaou smear with manual screening 7 5-15 [facility] Work Phone: Direct bilirubinon 2 Bilirubin.direct [Mass/Vol] 0.31 mg/dL 0.00-0.30 [facility] Work Phone: INR in Blood by Coagulation assayon 03-08-2022 INR Coag (Bld) [Relative time] 1.0 {INR} [facility] Work Phone: Laboratory - Chemistry and C hemistry - challengeon 03-08-2022 Lipase [Catalytic activity/Vol] 1591 U/L 73-393 [facility] Work Phone: Laboratory - Coagulationon 0 03-08-2022 aPTT Coag (Bld) [Time] 25.7 s 24.1-36.2 [facility] Work Phone: PT Coag (PPP) [Time] 13.3 s 11.7-14.9 [facility] Work Phone: Absolute lymphocyte counton 03-05-2022 Lymphocytes Auto (Unsp spec) [#/Vol] 1.29 10*3/uL 0.83-4.51 [facility] Work Phone: Basophil percentageon 2021 Basophil percentage 0-5 SEEN /hpf 0-5 [facility] Work Phone: Basophils/100 WBC (Bld) 0.5 % 0-1 [facility] Work Phone: Bilirubin [Mass/Vol] 2.40 mg/dL 0.20-1.00 [facility] Work Phone: Comment on above: For patients on eltr ombopag therapy, use of Dimension [place] TBIL is not recommended. Chloride [Moles/Vol] 99 mmol/L 98-107 [facility] Work Phone: Eosinophils/100 WBC (Bld) 0.0 % 0-5 [facility] Work Phone: Glucose [Mass/Vol] 76 mg/dL 74-106 [facility] Work Phone: Neutrophils (Bld) [#/Vol] 4.6 10*3/uL 2.0-7.7 [facility] Work Phone: Neutrophils/100 WBC (Bld) 71.0 % 47-70 [facility] Work Phone: Potassium [Moles/Vol] 3.7 mmol/L 3.5-5.1 [facility] Work Phone: Protein [Mass/Vol] 7.2 g/dL 6.4-8.2 [facility] Work Phone: [phone] Sodium [Moles/Vol] 135 mmol/L 136-145 [facility] Work Phone: WBC (Bld) [#/Vol] 6.5 10*3/uL 4.4-11.0 [facility] Work Phone: Beta hCG serum qualon 2021 Beta HCG ( test) Ql Negative [facility] Work Phone: Bilirubin Test strip Ql (U)o n 03-05-2022 Bilirubin Ql (U) Negative Negative [facility] Work Phone: Blood erythrocytes count (nu mber/volume)on 03-05-2022 RBC (Bld) [#/Vol] 4.26 10*6/uL 4.2-5.[address] [facility] Work Phone: Blood hemoglobin measurement (mass/volume)on 03-05-2022 Hemoglobin (Bld) [Mass/Vol] 13.2 g/dL 12.0-15.0 [facility] Work Phone: [phone] Blood lymphocytes/100 leukoc yteson 03-05-2022 Lymphocytes/100 WBC (Bld) 19.8 % 19-41 [facility] Work Phone: Blood monocytes/100 leukocyt eson 03-05-2022 Monocytes/100 WBC (Bld) 8.4 % 0-10 [facility] Work Phone: Blood platelet mean volumeon 03-05-2022 Platelet mean volume (Bld) [Entitic vol] 10.3 fL 6.2-12.0 [facility] Work Phone: Determination of erythrocyte mean corpuscular volume (MCV)on 03-05-2022 MCV (RBC) [Entitic vol] 89.9 fL 81-99 [facility] Work Phone: Direct bilirubinon 2 Bilirubin.direct [Mass/Vol] 0.82 mg/dL 0.00-0.30 [facility] Work Phone: Hematocrit Auto (Bld) [Volum e fraction]on 03-05-2022 Hematocrit (Bld) [Volume fraction] 38.3 % 37-47 [facility] Work Phone: Ketones Test strip Ql (U)on 03-05-2022 Ketones Ql (U) 150 mg/dl Negative [facility] Work Phone: Comment on above: CRITICAL VALUE VERIF IED. CALLED TO MUSHTAQ LOERA RN (ER)03/05/221911 Tian Marvin.RESULTS READ BACK BY SAME . CRITICAL VALUE *H Laboratory - Chemistry and C hemistry - challengeon 03-05-2022 ALP [Catalytic activity/Vol] 115 U/L 45-117 [facility] Work Phone: ALT [Catalytic activity/Vol] 169 U/L 13-56 [facility] Work Phone: CO2 [Moles/Vol] 20.0 mmol/L 21.0-32.0 [facility] Work Phone: Globulin (S) [Mass/Vol] 3.8 g/dL 2.2-4.2 [facility] Work Phone: Lipase [Catalytic activity/Vol] 1043 U/L 73-393 [facility] Work Phone: Urea nitrogen/Creatinin e [Mass ratio] 10.6 mg/mg 10-20 [facility] Work Phone: Laboratory - Drug toxicology on 03-05-2022 Amphetamines Ql (U) Negative <1000 ng/mL [facility] Work Phone: Benzodiazepines Ql (U) Positive < 200 ng/mL [facility] Work Phone: Cannabinoids Screen Ql (U) Negative < 50 ng/mL [facility] Work Phone: Cocaine Ql (U) Negative < 300 ng/mL [facility] Work Phone: Opiates Ql (U) Negative < 300 ng/mL [facility] Work Phone: Laboratory - Hematology and Cell countson 03-05-2022 Erythrocyte distribution width (RBC) [Entitic vol] 57.1 fL 35.1-43.9 [facility] Work Phone: Erythrocyte distribution width (RBC) [Ratio] 17.4 % 11.6-14.6 [facility] Work Phone: Immature granulocytes/100 WBC (Bld) 0.300 % 0.0-0.9 [facility] Work Phone: Comment on above: IG% - Immature Granu locytes (promyelocytes, myelocytes and metamyelocytes) > 1% indicates that a LEFT SHIFT is Present. MCH (RBC) [Entitic mass] 31.0 pg 27.0-32.0 [facility] Work Phone: Nucleated RBC/100 WBC (Bld) [Ratio] 0 % 0-5 [facility] Work Phone: MCHC Auto (RBC) [Mass/Vol]on 03-05-2022 MCHC (RBC) [Mass/Vol] 34.5 g/dL 32-36 [facility] Work Phone: Mucus LM Ql (Urine sed)on Mucus Ql (Urine sed) 0 SEEN /hpf [facility] Work Phone: Nitrite Test strip Ql (U)on 03-05-2022 Nitrite Ql (U) Negative Negative [facility] Work Phone: No Panel Informationon 03-05 Ethyl Alcohol Level 7.0 mg/dL [facility] Work Phone: Comment on above: The serum:whole bloo d ethanol ratio is approximately 1.14and varies slightly with hematocrit. Medical Alcohol reference interval and critical value innon-tolerant individuals; 50 - 100 Impairment 100 Intoxication 100 - 250 Severe Poisoning 250 - 400 Deep/possible fatal coma MDMA (Ecstasy) Screen Negative < 500 ng/mL [facility] Work Phone: Urine Barbiturates Screen Negative < 200 ng/mL [facility] Work Phone: Urine Drug Screen Comment [facility] Work Phone: Comment on above: CONFIRMATORY TESTING FOR ALL POSITIVE URINE DRUG SCREENRESULTS WILL ONLY BE SENT OUT UPON PHYSICIAN ORDER. VISTA Urine Drug Screen methods provide only preliminaryanalytical test results. A more specific alternate chemicalmethod must be used in order to obtain a confirmedanalytical result. Gas chromatography/mass spectrometery(GC/MS) is the preferred confirmatory method. Clinicalconsideration and professional judgement should be appliedto any drug of abuse test result, particularly whenpreliminary positive results are used. URINE TCA TESTING MUST BE ORDERED SEPARATELY. USE TESTMNEMONIC: [facility]CA Urine Methadone Screen Negative < 300 ng/mL [facility] Work Phone: Estimated Creatinine Clearance Calc 73.51 ml/min [facility] Work Phone: Estimated GFR (MDRD) Amer 95 mL/min >60 [facility] Work Phone: Comment on above: GFR Calc Estimated GFR (MDRD) Non-Af Amer 79 mL/min >60 [facility] Work Phone: Comment on above: Non- GFR Calc Platelets bldon 03-05-2022 Platelets (Bld) [#/Vol] 221 10*3/uL 150-450 [facility] Work Phone: Protein Test strip Ql (U)on 03-05-2022 Protein Ql (U) 15 mg/dl Negative [facility] Work Phone: Serum or plasma albumin silvino urement (mass/volume)on 03-05-2022 Albumin [Mass/Vol] 3.4 g/dL 3.2-5.0 [facility] Work Phone: Serum or plasma calcium silvino urement (mass/volume)on 03-05-2022 Calcium [Mass/Vol] 9.5 mg/dL 8.5-10.1 [facility] Work Phone: Serum or plasma creatinine m easurement (mass/volume)on 03-05-2022 Creatinine [Mass/Vol] 0.85 mg/dL 0.55-1.02 [facility] Work Phone: Comment on above: The validity of the calculated GFR & GFRAA in patients over 70 years has not been determined. Clinical correlation is essential. Serum or plasma urea nitroge n measurement (mass/volume)on 03-05-2022 Urea nitrogen [Mass/Vol] 9 mg/dL 7-18 [facility] Work Phone: Squamous epithelial cells de tection in urine sediment by light microscopyon 03-05-2022 Epithelial cells.squamous LM Ql (Urine sed) 0-5 SEEN /hpf 5-10 [facility] Work Phone: Thin prep Papanicolaou smear with manual screeningon 03-05-2022 Thin prep Papanicolaou smear with manual screening 352 U/L 15-37 [facility] Work Phone: Thin prep Papanicolaou smear with manual screening 16 5-15 [facility] Work Phone: Urine blood detectionon 02-09 RBC Ql (U) 25 /ul Negative [facility] Work Phone: RBC Ql (U) 0-5 SEEN /hpf 0-5 [facility] Work Phone: Urine clarityon 03-05-2022 Clarity (U) Clear Clear [facility] Work Phone: Urine color determinationon 03-05-2022 Color (U) Yellow Yellow [facility] Work Phone: Urine glucose detectionon Glucose Ql (U) Normal mg/dl Normal [facility] Work Phone: Urine leukocyte esterase det ection by dipstickon 03-05-2022 Leukocyte esterase Test strip Ql (U) 25 /ul Negative [facility] Work Phone: Urine pHon 03-05-2022 pH (U) 6.0 [pH] 5.0 - 8.0 [facility] Work Phone: Urine phencyclidine (PCP) de tectionon 03-05-2022 Phencyclidine Ql (U) Negative < 25 ng/mL [facility] Work Phone: Urine sediment bacteria coun t by microscopy (number/high power field)on 03-05-2022 Bacteria LM.HPF (Urine sed) [#/Area] 1 /[HPF] None Seen [facility] Work Phone: Urine specific gravity measu rementon 03-05-2022 Specific gravity (U) [Rel density] 1.015 1.002-1.030 [facility] Work Phone: Urobilinogen Auto test strip Ql (U)on 03-05-2022 Urobilinogen Ql (U) Normal mg/dl Normal [facility] Work Phone: Absolute lymphocyte counton 01-05-2022 Lymphocytes Auto (Unsp spec) [#/Vol] 1.91 10*3/uL 0.83-4.51 [facility] Work Phone: Basophil percentageon 2021 Lactate [Moles/Vol] 1.1 mmol/L 0.4-2.0 [facility] Work Phone: Basophil percentage 0-5 SEEN /hpf 0-5 [facility] Work Phone: Basophils/100 WBC (Bld) 0.2 % 0-1 [facility] Work Phone: Bilirubin [Mass/Vol] 1.30 mg/dL 0.20-1.00 [facility] Work Phone: Comment on above: For patients on eltr ombopag therapy, use of Dimension [place] TBIL is not recommended. Chloride [Moles/Vol] 97 mmol/L 98-107 [facility] Work Phone: Eosinophils/100 WBC (Bld) 0.0 % 0-5 [facility] Work Phone: Glucose [Mass/Vol] 96 mg/dL 74-106 [facility] Work Phone: Neutrophils (Bld) [#/Vol] 5.8 10*3/uL 2.0-7.7 [facility] Work Phone: Neutrophils/100 WBC (Bld) 67.0 % 47-70 [facility] Work Phone: Potassium [Moles/Vol] 3.1 mmol/L 3.5-5.1 [facility] Work Phone: Comment on above: Moderate Hemolysis, Result may be falsely increased. Protein [Mass/Vol] 8.9 g/dL 6.4-8.2 [facility] Work Phone: [phone] Sodium [Moles/Vol] 132 mmol/L 136-145 [facility] Work Phone: WBC (Bld) [#/Vol] 8.6 10*3/uL 4.4-11.0 [facility] Work Phone: Beta hCG serum qualon 2021 Beta HCG ( test) Ql Negative [facility] Work Phone: Bilirubin Test strip Ql (U)o n 01-05-2022 Bilirubin Ql (U) Negative Negative [facility] Work Phone: Blood erythrocytes count (nu mber/volume)on 01-05-2022 RBC (Bld) [#/Vol] 6.16 10*6/uL 4.2-5.[address] [facility] Work Phone: Blood hemoglobin measurement (mass/volume)on 01-05-2022 Hemoglobin (Bld) [Mass/Vol] 16.9 g/dL 12.0-15.0 [facility] Work Phone: Blood lymphocytes/100 leukoc yteson 01-05-2022 Lymphocytes/100 WBC (Bld) 22.1 % 19-41 [facility] Work Phone: Blood monocytes/100 leukocyt eson 01-05-2022 Monocytes/100 WBC (Bld) 10.4 % 0-10 [facility] Work Phone: Blood platelet mean volumeon 01-05-2022 Platelet mean volume (Bld) [Entitic vol] 11.3 fL 6.2-12.0 [facility] Work Phone: Determination of erythrocyte mean corpuscular volume (MCV)on 01-05-2022 MCV (RBC) [Entitic vol] 80.7 fL 81-99 [facility] Work Phone: Direct bilirubinon 2 Bilirubin.direct [Mass/Vol] 0.12 mg/dL 0.00-0.30 [facility] Work Phone: Hematocrit Auto (Bld) [Volum e fraction]on 01-05-2022 Hematocrit (Bld) [Volume fraction] 49.7 % 37-47 [facility] Work Phone: Ketones Test strip Ql (U)on 01-05-2022 Ketones Ql (U) 150 mg/dl Negative [facility] Work Phone: Comment on above: CRITICAL VALUE *H Laboratory - Chemistry and C hemistry - challengeon 01-05-2022 ALP [Catalytic activity/Vol] 68 U/L 45-117 [facility] Work Phone: ALT [Catalytic activity/Vol] 37 U/L 13-56 [facility] Work Phone: CO2 [Moles/Vol] 21.0 mmol/L 21.0-32.0 [facility] Work Phone: Globulin (S) [Mass/Vol] 4.6 g/dL 2.2-4.2 [facility] Work Phone: Lipase [Catalytic activity/Vol] 718 U/L 73-393 [facility] Work Phone: Urea nitrogen/Creatinin e [Mass ratio] 7.5 mg/mg 10-20 [facility] Work Phone: Laboratory - Drug toxicology on 01-05-2022 Amphetamines Ql (U) Negative <1000 ng/mL [facility] Work Phone: Benzodiazepines Ql (U) Positive < 200 ng/mL [facility] Work Phone: Cannabinoids Screen Ql (U) Negative < 50 ng/mL [facility] Work Phone: Cocaine Ql (U) Negative < 300 ng/mL [facility] Work Phone: Opiates Ql (U) Negative < 300 ng/mL [facility] Work Phone: Laboratory - Hematology and Cell countson 01-05-2022 Erythrocyte distribution width (RBC) [Entitic vol] 46.0 fL 35.1-43.9 [facility] Work Phone: Erythrocyte distribution width (RBC) [Ratio] 17.0 % 11.6-14.6 [facility] Work Phone: Immature granulocytes/100 WBC (Bld) 0.300 % 0.0-0.9 [facility] Work Phone: Comment on above: IG% - Immature Granu locytes (promyelocytes, myelocytes and metamyelocytes) > 1% indicates that a LEFT SHIFT is Present. MCH (RBC) [Entitic mass] 27.4 pg 27.0-32.0 [facility] Work Phone: Nucleated RBC/100 WBC (Bld) [Ratio] 0 % 0-5 [facility] Work Phone: MCHC Auto (RBC) [Mass/Vol]on 01-05-2022 MCHC (RBC) [Mass/Vol] 34.0 g/dL 32-36 [facility] Work Phone: Mucus LM Ql (Urine sed)on Mucus Ql (Urine sed) 0 SEEN /hpf [facility] Work Phone: Nitrite Test strip Ql (U)on 01-05-2022 Nitrite Ql (U) Negative Negative [facility] Work Phone: No Panel Informationon 01-05 Ethyl Alcohol Level < 3.0 mg/dL [facility] Work Phone: Comment on above: The serum:whole bloo d ethanol ratio is approximately 1.14and varies slightly with hematocrit. Medical Alcohol reference interval and critical value innon-tolerant individuals; 50 - 100 Impairment 100 Intoxication 100 - 250 Severe Poisoning 250 - 400 Deep/possible fatal coma Estimated Creatinine Clearance Calc 58.39 ml/min [facility] Work Phone: Estimated GFR (MDRD) Amer 73 mL/min >60 [facility] Work Phone: Comment on above: GFR Calc Estimated GFR (MDRD) Non-Af Amer 61 mL/min >60 [facility] Work Phone: Comment on above: Non- GFR Calc MDMA (Ecstasy) Screen Negative < 500 ng/mL [facility] Work Phone: Urine Barbiturates Screen Negative < 200 ng/mL [facility] Work Phone: Urine Drug Screen Comment [facility] Work Phone: Comment on above: CONFIRMATORY TESTING FOR ALL POSITIVE URINE DRUG SCREENRESULTS WILL ONLY BE SENT OUT UPON PHYSICIAN ORDER. VISTA Urine Drug Screen methods provide only preliminaryanalytical test results. A more specific alternate chemicalmethod must be used in order to obtain a confirmedanalytical result. Gas chromatography/mass spectrometery(GC/MS) is the preferred confirmatory method. Clinicalconsideration and professional judgement should be appliedto any drug of abuse test result, particularly whenpreliminary positive results are used. URINE TCA TESTING MUST BE ORDERED SEPARATELY. USE TESTMNEMONIC: [facility]CA Urine Methadone Screen Negative < 300 ng/mL [facility] Work Phone: Platelets bldon 01-05-2022 Platelets (Bld) [#/Vol] 255 10*3/uL 150-450 [facility] Work Phone: Protein Test strip Ql (U)on 01-05-2022 Protein Ql (U) 15 mg/dl Negative [facility] Work Phone: Serum or plasma albumin silvino urement (mass/volume)on 01-05-2022 Albumin [Mass/Vol] 4.3 g/dL 3.2-5.0 [facility] Work Phone: Serum or plasma calcium silvino urement (mass/volume)on 01-05-2022 Calcium [Mass/Vol] 9.9 mg/dL 8.5-10.1 [facility] Work Phone: Serum or plasma creatinine m easurement (mass/volume)on 01-05-2022 Creatinine [Mass/Vol] 1.07 mg/dL 0.55-1.02 [facility] Work Phone: Comment on above: The validity of the calculated GFR & GFRAA in patients over 70 years has not been determined. Clinical correlation is essential. Serum or plasma urea nitroge n measurement (mass/volume)on 01-05-2022 Urea nitrogen [Mass/Vol] 8 mg/dL 7-18 [facility] Work Phone: Squamous epithelial cells de tection in urine sediment by light microscopyon 01-05-2022 Epithelial cells.squamous LM Ql (Urine sed) 0 SEEN /hpf 5-10 [facility] Work Phone: Thin prep Papanicolaou smear with manual screeningon 01-05-2022 Thin prep Papanicolaou smear with manual screening 45 U/L 15-37 [facility] Work Phone: Comment on above: Moderate Hemolysis, Result may be falsely increased. Thin prep Papanicolaou smear with manual screening 14 5-15 [facility] Work Phone: Urine blood detectionon 12-10 RBC Ql (U) Negative Negative [facility] Work Phone: RBC Ql (U) 0 SEEN /hpf 0-5 [facility] Work Phone: Urine clarityon 01-05-2022 Clarity (U) Clear Clear [facility] Work Phone: Urine color determinationon 01-05-2022 Color (U) Yellow Yellow [facility] Work Phone: Urine glucose detectionon Glucose Ql (U) Normal mg/dl Normal [facility] Work Phone: Urine leukocyte esterase det ection by dipstickon 01-05-2022 Leukocyte esterase Test strip Ql (U) 25 /ul Negative [facility] Work Phone: Urine pHon 01-05-2022 pH (U) 6.0 [pH] 5.0 - 8.0 [facility] Work Phone: Comment on above: RESULTS CALLED TO ED GIOVANI 01/05/222215 Cristiane Zhang.REPORT READ BACK BY . Urine phencyclidine (PCP) de tectionon 01-05-2022 Phencyclidine Ql (U) Negative < 25 ng/mL [facility] Work Phone: Urine sediment bacteria coun t by microscopy (number/high power field)on 01-05-2022 Bacteria LM.HPF (Urine sed) [#/Area] 0 /[HPF] None Seen [facility] Work Phone: Urine specific gravity measu rementon 01-05-2022 Specific gravity (U) [Rel density] 1.015 1.002-1.030 [facility] Work Phone: Urobilinogen Auto test strip Ql (U)on 01-05-2022 Urobilinogen Ql (U) Normal mg/dl Normal [facility] Work Phone: Absolute lymphocyte counton 12-31-2021 Lymphocytes Auto (Unsp spec) [#/Vol] 1.33 10*3/uL 0.83-4.51 [facility] Work Phone: Basophil percentageon 2021 Basophil percentage 0-5 SEEN /hpf 0-5 [facility] Work Phone: Basophils/100 WBC (Bld) 0.1 % 0-1 [facility] Work Phone: Bilirubin [Mass/Vol] 1.20 mg/dL 0.20-1.00 [facility] Work Phone: Comment on above: For patients on eltr ombopag therapy, use of Dimension [place] TBIL is not recommended. Chloride [Moles/Vol] 102 mmol/L 98-107 [facility] Work Phone: Eosinophils/100 WBC (Bld) 0.0 % 0-5 [facility] Work Phone: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 [address] [address] Patient: TAYA VIVEROS Phone#: : 1980 Age: 39 Gender: F Pt. Type: ER Account: [id number] Location: 052 Ordering: ROSHNI RENTERIA Exam Date: 11/27/201920:19 Family Phys: SHAHRAM EDGE Charge Code: 025731 Physician: Corson Order #: [id number] DLP Dose#: PROCEDURE: CT CERVICAL WITHOUT CONTRAST COMPARISON: None. INDICATIONS: Trauma. TECHNIQUE: Multi-planar CT images were created without intravenous contrast. All CT scans at this facility use dose modulation, iterative reconstruction, and/or weight based dosing when appropriate to reduce radiation dose to as low as reasonably achievable. FINDINGS: CRANIOCERVICAL AREA: Normal foramen magnum with no Chiari malformation. PARASPINAL AREA: Normal with no visible mass. BONES: There is reversal of the normal cervical lordosis. Mild degenerative changes are present. CERVICAL DISC LEVELS: C2-C3: No significant disc/facet abnormality, spinal stenosis, or foraminal stenosis. C3-C4: There is mild disc space narrowing. Osteophytes are present with narrowing of the foramina bilaterally. C4-C5: Mild disc space narrowing. Osteophytes are present with narrowing of the foramina bilaterally. C5-C6: Disk space narrowing is present. Osteophytes are present with mild narrowing of the foramina bilaterally. C6-C7: No significant disc/facet abnormality, spinal stenosis, or foraminal stenosis. C7-T1: No significant disc/facet abnormality, spinal stenosis, or foraminal stenosis. CONCLUSION: 1. Mild degenerative changes of the spine are present. There is reversal of the normal cervical lordosis. Continued Report - Page 2 of 2 Patient: FAREED VIVEROSINA HenryNeeraj Phone#: : 1980 Age: 39 Gender: F Pt. Type: ER Account: [id number] Location: 2 Ordering: ROSHNI RENTERIA Exam Date: 11/27/2019/20:19 Family Phys: SHAHRAM CERVANTESLEY Charge Code: 530344 Physician: Corson Order #: [id number] DLP Dose#: 2. There is no evidence of acute fracture or subluxation. Dictated by: Katherine Hinton MD on 11/28/2019 at 14:25 Approved by: Katherine Hinton MD on 11/28/2019 at 14:25 Normal [facility] Culture, urine Bacteria identified Cx Nom (U) Escherichia coli [facility] Work Phone: Vital Signs Date Time Vital Sign Value Performing Clinician Facility 02-28-2025 15:11-0400 Body mass index (BMI) [Ratio] 24.27 kg/m2 Karen Collado FUNERAL DIRECTOR.TECHNICIAN CHEMICAL CLEANING Work Phone: [facility] 02-28-2025 15:11-0400 Body weight 62.14 kg Karen Older FUNERAL DIRECTOR.TECHNICIAN CHEMICAL CLEANING Work Phone: [facility] 02-28-2025 15:11-0400 Diastolic blood pressure 80 mm[Hg] Karen Older FUNERAL DIRECTOR.TECHNICIAN CHEMICAL CLEANING Work Phone: [facility] 02-28-2025 15:11-0400 Heart rate 72 /min Karen Older FUNERAL DIRECTOR.TECHNICIAN CHEMICAL CLEANING Work Phone: [facility] 02-28-2025 15:11-0400 Respiratory rate 16 /min Karen Older FUNERAL DIRECTOR.TECHNICIAN CHEMICAL CLEANING Work Phone: [facility] 02-28-2025 15:11-0400 SaO2% (BldA) [Mass fraction] 100 % Karen Older FUNERAL DIRECTOR.TECHNICIAN CHEMICAL CLEANING Work Phone: [facility] 02-28-2025 15:11-0400 Systolic blood pressure 112 mm[Hg] FUNERAL DIRECTOR.TECHNICIAN CHEMICAL CLEANING Work Phone: [facility] 03-12-2024 12:25-0400 Body mass index (BMI) [Ratio] 24.21 kg/m2 Nadira Sanderson FUNERAL DIRECTOR.TECHNICIAN CHEMICAL CLEANING Work Phone: [facility] 03-12-2024 12:25-0400 Body temperature 98.29 [degF] Nadira Sanderson FUNERAL DIRECTOR.TECHNICIAN CHEMICAL CLEANING Work Phone: [facility] 03-12-2024 12:25-0400 Body weight 62 kg Nadira Sanderson FUNERAL DIRECTOR.TECHNICIAN CHEMICAL CLEANING Work Phone: [facility] 03-12-2024 12:25-0400 Diastolic blood pressure 78 mm[Hg] Nadira Sanderson FUNERAL DIRECTOR.TECHNICIAN CHEMICAL CLEANING Work Phone: [facility] 03-12-2024 12:25-0400 Heart rate 109 /min Nadira Sanderson FUNERAL DIRECTOR.TECHNICIAN CHEMICAL CLEANING Work Phone: [facility] 03-12-2024 12:25-0400 Respiratory rate 20 /min Nadira Sanderson FUNERAL DIRECTOR.TECHNICIAN CHEMICAL CLEANING Work Phone: [facility] 03-12-2024 12:25-0400 SaO2% (BldA) [Mass fraction] 100 % Nadira Sanderson FUNERAL DIRECTOR.TECHNICIAN CHEMICAL CLEANING Work Phone: [facility] 03-12-2024 12:25-0400 Systolic blood pressure 114 mm[Hg] Nadira Sanderson FUNERAL DIRECTOR.TECHNICIAN CHEMICAL CLEANING Work Phone: [facility] 11-08-2022 10:50-0400 Body height 160 cm Mikaela Chavarria MD Work Phone: [facility] 11-08-2022 10:50-0400 Body temperature 98.29 [degF] Mikaela Chavarria MD Work Phone: [facility] 11-08-2022 10:50-0400 Body weight 66.68 kg Mikaela Chavarria MD Work Phone: [facility] 11-08-2022 10:50-0400 Diastolic blood pressure 60 mm[Hg] Mikaela Chavarria MD Work Phone: [facility] 11-08-2022 10:50-0400 Heart rate 84 /min Mikaela Chavarria MD Work Phone: [facility] 11-08-2022 10:50-0400 Respiratory rate 12 /min Mikaela Chavarria MD Work Phone: [facility] 11-08-2022 10:50-0400 SaO2% (BldA) [Mass fraction] 100 % Mikaela Chavarria MD Work Phone: [facility] 11-08-2022 10:50-0400 Systolic blood pressure 110 mm[Hg] Mikaela Chavarria MD Work Phone: [facility] 08-26-2022 15:14-0500 Body height 160 cm Mikaela Chavarria MD Work Phone: [facility] 08-26-2022 15:14-0500 Body temperature 97.81 [degF] Mikaela Chavarria MD Work Phone: [facility] 08-26-2022 15:14-0500 Body weight 69.85 kg Mikaela Chavarria MD Work Phone: [facility] 08-26-2022 15:14-0500 Diastolic blood pressure 68 mm[Hg] Mikaela Chavarria MD Work Phone: [facility] 08-26-2022 15:14-0500 Heart rate 84 /min Mikaela Chavarria MD Work Phone: [facility] 08-26-2022 15:14-0500 Respiratory rate 12 /min Mikaela Chavarria MD Work Phone: [facility] 08-26-2022 15:14-0500 SaO2% (BldA) [Mass fraction] 99 % Mikaela Chavarria MD Work Phone: [facility] 08-26-2022 15:14-0500 Systolic blood pressure 106 mm[Hg] Mikaela Chavarria MD Work Phone: [facility] 06-03-2022 15:00-0400 Body height 160 cm Mikaela Chavarria MD Work Phone: [facility] 06-03-2022 15:00-0400 Body temperature 97.9 [degF] Mikaela Chavarria MD Work Phone: [facility] 06-03-2022 15:00-0400 Body weight 70.76 kg Mikaela Chavarria MD Work Phone: [facility] 06-03-2022 15:00-0400 Diastolic blood pressure 66 mm[Hg] Mikaela Chavarria MD Work Phone: [facility] 06-03-2022 15:00-0400 Heart rate 82 /min Mikaela Chavarria MD Work Phone: [facility] 06-03-2022 15:00-0400 Respiratory rate 12 /min Mikaela Chavarria MD Work Phone: [facility] 06-03-2022 15:00-0400 SaO2% (BldA) [Mass fraction] 99 % Mikaela Chavarria MD Work Phone: [facility] 06-03-2022 15:00-0400 Systolic blood pressure 106 mm[Hg] Mikaela Chavarria MD Work Phone: [facility] 04-02-2022 15:00-0400 Body temperature 96.8 [degF] Dr. Mikaela Chavarria Work Phone: [facility] Work Phone: 04-02-2022 15:00-0400 Diastolic blood pressure 82 mm[Hg] Dr. Mikaela Chavarria Work Phone: [facility] Work Phone: 04-02-2022 15:00-0400 Heart rate 104 /min Dr. Mikaela Chavarria Work Phone: [facility] Work Phone: 04-02-2022 15:00-0400 Respiratory rate 18 /min Dr. Mikaela Chavarria Work Phone: [facility] Work Phone: 04-02-2022 15:00-0400 SaO2% (BldA) [Mass fraction] 100 % Dr. Mikaela Chavarria Work Phone: [facility] Work Phone: 04-02-2022 15:00-0400 Systolic blood pressure 112 mm[Hg] Dr. Mikaela Chavarria Work Phone: [facility] Work Phone: 04-02-2022 14:47-0400 Body height 160.[address] Mikaela Chavarria Work Phone: [facility] Work Phone: 04-02-2022 14:47-0400 Body mass index (BMI) [Ratio] 25.7 kg/m2 Dr. Mikaela Chavarria Work Phone: [facility] Work Phone: 04-02-2022 14:47-0400 Body weight 65.[address] Mikaela Chavarria Work Phone: [facility] Work Phone: 03-10-2022 14:40-0400 Body temperature 98.8 [degF] Dr. Mikaela Chavarria Work Phone: [facility] Work Phone: 03-10-2022 14:40-0400 Diastolic blood pressure 65 mm[Hg] Dr. Mikaela Chavarria Work Phone: [facility] Work Phone: 03-10-2022 14:40-0400 Heart rate 89 /min Dr. Mikaela Chavarria Work Phone: [facility] Work Phone: 03-10-2022 14:40-0400 Respiratory rate 16 /min Dr. Mikaela Chavarria Work Phone: [facility] Work Phone: 03-10-2022 14:40-0400 SaO2% (BldA) [Mass fraction] 99 % Dr. Mikaela Chavarria Work Phone: [facility] Work Phone: 03-10-2022 14:40-0400 Systolic blood pressure 100 mm[Hg] Dr. Mikaela Chavarria Work Phone: [facility] Work Phone: 03-10-2022 05:55-0400 Body weight 69.[address] Mikaela Chavarria Work Phone: [facility] Work Phone: 03-08-2022 07:21-0400 Body height 160.[address] Mikaela Chavarria Work Phone: [facility] Work Phone: 03-08-2022 07:21-0400 Body mass index (BMI) [Ratio] 28.3 kg/m2 Dr. Mikaela Chavarria Work Phone: [facility] Work Phone: 03-05-2022 21:03-0400 Body temperature 98 [degF] [facility] Work Phone: 03-05-2022 21:03-0400 Diastolic blood pressure 82 mm[Hg] [facility] Work Phone: 03-05-2022 21:03-0400 Heart rate 91 /min [facility] Work Phone: 03-05-2022 21:03-0400 Respiratory rate 16 /min [facility] Work Phone: 03-05-2022 21:03-0400 SaO2% (BldA) [Mass fraction] 98 % [facility] Work Phone: 03-05-2022 21:03-0400 Systolic blood pressure 125 mm[Hg] [facility] Work Phone: 03-05-2022 17:21-0400 Body height 160.[address] [facility] Work Phone: 03-05-2022 17:21-0400 Body mass index (BMI) [Ratio] 25.4 kg/m2 [facility] Work Phone: 03-05-2022 17:21-0400 Body weight 65.[address] [facility] Work Phone: 01-06-2022 05:10-0400 Diastolic blood pressure 84 mm[Hg] [facility] Work Phone: 01-06-2022 05:10-0400 Heart rate 82 /min [facility] Work Phone: 01-06-2022 05:10-0400 Respiratory rate 16 /min [facility] Work Phone: 01-06-2022 05:10-0400 SaO2% (BldA) [Mass fraction] 94 % [facility] Work Phone: 01-06-2022 05:10-0400 Systolic blood pressure 121 mm[Hg] [facility] Work Phone: 01-05-2022 21:04-0400 Body height 160.[address] [facility] Work Phone: 01-05-2022 21:04-0400 Body mass index (BMI) [Ratio] 30.9 kg/m2 [facility] Work Phone: 01-05-2022 21:04-0400 Body temperature 98.7 [degF] [facility] Work Phone: 01-05-2022 21:04-0400 Body weight 79.[address] [facility] Work Phone: 12-31-2021 15:36-0400 Diastolic blood pressure 85 mm[Hg] [facility] Work Phone: 12-31-2021 15:36-0400 Heart rate 73 /min [facility] Work Phone: 12-31-2021 15:36-0400 Respiratory rate 16 /min [facility] Work Phone: 12-31-2021 15:36-0400 SaO2% (BldA) [Mass fraction] 99 % [facility] Work Phone: 12-31-2021 15:36-0400 Systolic blood pressure 147 mm[Hg] [facility] Work Phone: 12-31-2021 08:59-0400 Body height 160.[address] [facility] Work Phone: 12-31-2021 08:59-0400 Body mass index (BMI) [Ratio] 25.7 kg/m2 [facility] Work Phone: 12-31-2021 08:59-0400 Body temperature 97.6 [degF] [facility] Work Phone: 12-31-2021 08:59-0400 Body weight 65.[address] [facility] Work Phone: 12-28-2021 18:40-0400 Body height 160.[address] [facility] Work Phone: 12-28-2021 18:40-0400 Body mass index (BMI) [Ratio] 25.6 kg/m2 [facility] Work Phone: 12-28-2021 18:40-0400 Body temperature 98.1 [degF] [facility] Work Phone: 12-28-2021 18:40-0400 Body weight 65.[address] [facility] Work Phone: 12-28-2021 18:40-0400 Diastolic blood pressure 75 mm[Hg] [facility] Work Phone: 12-28-2021 18:40-0400 Heart rate 98 /min [facility] Work Phone: 12-28-2021 18:40-0400 Respiratory rate 18 /min [facility] Work Phone: 12-28-2021 18:40-0400 SaO2% (BldA) [Mass fraction] 95 % [facility] Work Phone: 12-28-2021 18:40-0400 Systolic blood pressure 133 mm[Hg] [facility] Work Phone: 12-28-2021 18:07-0400 Body temperature 98.91 [degF] Shayy Praisler-Wood FUNERAL DIRECTOR.TECHNICIAN CHEMICAL CLEANING Work Phone: [facility] 12-28-2021 18:07-0400 Body weight 65.86 kg Shayy Praisler-Wood FUNERAL DIRECTOR.TECHNICIAN CHEMICAL CLEANING Work Phone: [facility] 12-28-2021 18:07-0400 Diastolic blood pressure 64 mm[Hg] Shayy Praisler-Wood FUNERAL DIRECTOR.TECHNICIAN CHEMICAL CLEANING Work Phone: [facility] 12-28-2021 18:07-0400 Heart rate 80 /min Shayy Praisler-Wood FUNERAL DIRECTOR.TECHNICIAN CHEMICAL CLEANING Work Phone: [facility] 12-28-2021 18:07-0400 Respiratory rate 18 /min Shayy Praisler-Wood FUNERAL DIRECTOR.TECHNICIAN CHEMICAL CLEANING Work Phone: [facility] 12-28-2021 18:07-0400 SaO2% (BldA) [Mass fraction] 99 % Shayy Praisler-Wood FUNERAL DIRECTOR.TECHNICIAN CHEMICAL CLEANING Work Phone: [facility] 12-28-2021 18:0400 Systolic blood pressure 120 mm[Hg] Shayy Zapata APRN.CNP Work Phone: [facility] Encounters Encounter Date Encounter Type Care Provider Facility Start: 02-28-2025 End: 02-28-2025 [facility] Facility:[place] Start: 02-28-2025 End: 02-28-2025 Office outpatient visit 25 minutes Karen Collado APRN.CNP Work Phone: [facility] [place] Comment on above: Chronic bilateral lo w back pain, unspecified whether sciatica present (Primary Dx); Pain of left lower extremity; Anxiety; Elevated liver enzymes; Hypothyroidism, unspecified type; STD exposure; Mild intermittent asthma without complication (HCC) Start: 02-28-2025 End: 02-28-2025 [facility] Facility:[place] Start: 02-16-2025 End: 04-18-2025 Follow-up encounter Karen Collado APRN.CNP Work Phone: Family [facility] [place] Start: 02-14-2025 End: 02-14-2025 [facility] Facility:[place] Start: 01-24-2025 End: 01-24-2025 [facility] Karen Collado APRN.CNP Work Phone: [facility] [place] Comment on above: Hypothyroidism, unsp ecified type (Primary Dx); Other fatigue; Dysuria; Anxiety; Recurrent major depressive disorder, in partial remission; Vitamin D deficiency; Annual physical exam Start: 01-24-2025 End: 01-24-2025 [facility] Facility:[place] Start: 01-24-2025 End: 01-24-2025 Patient encounter procedure Karen Collado APRN.CNP Work Phone: [facility] Start: 01-19-2025 End: 01-19-2025 Telephone encounter Karen Collado APRN.CNP Work Phone: [facility] [place] Start: 07-07-2024 End: 07-12-2024 ambulatory Mikaela Chavarria MD Work Phone: Internal Medicine [place] [id number] Start: 06-14-2024 End: 06-14-2024 Emergency department patient visit [facility] Facility:[facility] Start: 03-14-2024 Telephone encounter Akhil MATIAS Work Phone: [facility] Comment on above: Results Start: 03-13-2024 Telephone encounter Anil Luis MD Work Phone: [facility] Comment on above: Results (BV (+), Tri ch (+)) Start: 03-12-2024 End: 03-12-2024 Patient encounter procedure Nadira Sanderson APRN.TECHNICIAN CHEMICAL CLEANING Work Phone: [facility] Comment on above: Cystitis (Primary Dx ); Encounter for screening examination for sexually transmitted disease Refill Request Start: 03-12-2024 End: 03-12-2024 ambulatory MIKAELA CHAVARRIA Facility:[place] Start: 12-07-2022 Refill Mikaela Benoit Work Phone: Internal [facility] Comment on above: Med Change Request Start: 12-01-2022 Refill Mikaela Benoit Work Phone: Internal [facility] Comment on above: Med Change Request Start: 11-17-2022 Telephone encounter Mikaela ha MD Work Phone: [facility] Comment on above: Results Start: 11-15-2022 Telephone encounter Debbie GRIMES Work Phone: Adult Psychology Comment on above: [facility] Start: 11-12-2022 End: 11-12-2022 Patient encounter procedure Marisol Nance MD Work Phone: Otolaryngology Comment on above: Nasal discomfort (Pr imary Dx) Start: 11-08-2022 Telephone encounter Debbie GRIMES Work Phone: Adult Psychology Comment on above: [facility] Start: 11-08-2022 End: 11-08-2022 Patient encounter procedure Mikaela Chavarria MD Work Phone: [facility] [place] Comment on above: Moderate episode of recurrent major depressive disorder (HCC) (Primary Dx); Mood disorder (HCC); Attention deficit hyperactivity disorder (ADHD), unspecified ADHD type; Insomnia, unspecified type Start: 11-05-2022 Telephone encounter Mikaela ha MD Work Phone: Family [facility] [place] Comment on above: Orders; Results Start: 08-28-2022 Refill Karen Older FUNERAL DIRECTOR .TECHNICIAN CHEMICAL CLEANING Work Phone: [facility] [place] Comment on above: Refill Request Start: 08-26-2022 End: 08-26-2022 Patient encounter procedure Mikaela Chavarria MD Work Phone: [facility] [place] Comment on above: Nasal mass (Primary Dx) Start: 08-10-2022 Refill Karen Older FUNERAL DIRECTOR .TECHNICIAN CHEMICAL CLEANING Work Phone: [facility] [place] Comment on above: Refill Request Start: 08-07-2022 ambulatory Mikaela Benoit Work Phone: Internal [facility] [place] Start: 07-10-2022 Refill Mikaela Benoit Work Phone: [facility] [place] Comment on above: Refill Request Start: 06-13-2022 Refill Mikaela Benoit Work Phone: [facility] [place] Comment on above: Refill Request Start: 06-03-2022 End: 06-03-2022 Patient encounter procedure Mikaela Chavarria MD Work Phone: [facility] [place] Comment on above: Cyclothymia (Primary Dx); Need for influenza vaccination; Special screening examination for viral disease; Encounter for gynecological examination without abnormal finding; Insomnia, unspecified type; Anxiety; Weight gain; Vitamin D deficiency; Hypothyroidism, unspecified type Start: 06-03-2022 End: 06-03-2022 Patient encounter status Mikaela Chavarria MD Work Phone: [facility] [place] Start: 05-25-2022 Refill Mikaela Benoit Work Phone: [facility] [place] Comment on above: Refill Request Start: 04-25-2022 Telephone encounter Mikaela ha MD Work Phone: [facility] [place] Comment on above: Appointment Start: 04-02-2022 End: 04-02-2022 Emergency department patient visit Dr. Mikaela Chavarria Work Phone: [facility]Emergency Department Start: 04-02-2022 End: 04-02-[address] Mikaela Chavarria Work Phone: [facility] Work Phone: Start: 04-02-2022 End: 04-02-[address] Mikaela Chavarria Work Phone: [facility]-Laboratory Start: 03-27-2022 Refill Mikaela Benoit Work Phone: [facility] [place] Comment on above: Med Change Request Start: 03-19-2022 End: 03-19-[address] Mikaela Chavarria Work Phone: [facility] Start: 03-13-2022 End: 03-13-2022 ambulatory Mikaela Chavarria MD Work Phone: [facility] [place] Comment on above: Hypokalemia (Primary Dx); Cyclothymia; Anxiety Start: 03-13-2022 End: 03-13-2022 Telemedicine consultation with patient Mikaela Chavarria MD Work Phone: [facility] Start: 03-09-2022 Non-patient / Non-visit Dr. Mikaela Chavarria Work Phone: [facility] Start: 03-08-2022 Non-patient / Non-visit Dr. Mikaela Chavarria Work Phone: [facility] Start: 03-08-2022 Non-patient / Non-visit Dr. Mikaela Chavarria Work Phone: [facility] Start: 03-08-2022 Non-patient / Non-visit Dr. Mikaela Chavarria Work Phone: [facility] Start: 03-07-2022 Non-patient / Non-visit Dr. Mikaela Chavarria Work Phone: [facility] Start: 03-07-2022 Non-patient / Non-visit Dr. Mikaela Chavarria Work Phone: [facility] Start: 03-07-2022 Non-patient / Non-visit Dr. Mikaela Chavarria Work Phone: [facility] Start: 03-06-2022 Non-patient / Non-visit Dr. Mikaela Chavarria Work Phone: [facility] Start: 03-06-2022 Non-patient / Non-visit Dr. Mikaela Chavarria Work Phone: [facility] Start: 03-05-2022 Non-patient / Non-visit Dr. Mikaela Chavarria Work Phone: [facility] Start: 03-05-2022 End: 03-10-2022 Evaluation and management of inpatient [facility] 3 Start: 01-31-2022 End: 01-31-2022 ambulatory Jackie Sainz APRN.CNP Work Phone: Telemedicine Comment on above: Treatment not availa ble (Primary Dx) Start: 01-31-2022 End: 01-31-2022 Telemedicine consultation with patient Jackie Sainz APRN.CNP Work Phone: [facility] Start: 01-31-2022 Distance Health (Vis it Summary) Shazia Seay Provider External-Non[facility] Comment on above: Anxiety disorder, un specified - Gastro-esophageal reflux disease without esophagitis Start: 01-31-2022 External Contact Shazia Seay Provi dwaine EXTERNAL-NON [facility] Start: 01-31-2022 Telephone encounter Mikaela ha MD Work Phone: [facility] [place] Comment on above: Patient Update Start: 01-17-2022 Telephone encounter Mikaela ha MD Work Phone: [facility] [place] Comment on above: Opened In Error Start: 01-11-2022 Refill Madeleine Puma RONQUILLOBUREAU CHIEF Work Phone: [facility] [place] Comment on above: Refill Request Start: 01-05-2022 End: 01-06-2022 [facility] Start: 01-01-2022 Telephone encounter Mikaela ha MD Work Phone: Internal [facility] Comment on above: Patient Question Start: 12-31-2021 End: 12-31-2021 Emergency department patient visit [facility] Start: 12-28-2021 End: 12-28-2021 [facility] Start: 12-28-2021 End: 12-28-2021 Patient encounter procedure Shayy Zapata APRN.TECHNICIAN CHEMICAL CLEANING Work Phone: [facility] Comment on above: Nausea and vomiting, unspecified vomiting type (Primary Dx) Start: 12-15-2021 Refill Mikaela Benoit Work Phone: [facility] [place] Comment on above: Refill Request Start: 12-11-2021 ambulatory Mikaela Benoit Work Phone: [facility] [place] Comment on above: Blood test Start: 12-20-2019 End: 12-20-2019 [facility] Start: 11-27-2019 End: 11-27-2019 Emergency department patient visit ROSHNI DO RENTERIA [facility] Procedures Date Procedure Procedure Detail Performing Clinician Start: 03-12-2024 Urnls dip stick/tablet rgnt auto w/o microscopy Akhil Villarreal PA Work Phone: Start: 06-03-2022 INFLUENZA VACCINE QUADRIVALENT 6 MO - 64 YRS IM Mikaela Chavarria MD Work Phone: Start: 04-02-2022 Plain chest X-ray Dr. Mikaela Chavarria Work Phone: Start: 04-02-2022 Computed tomography of abdomen and pelvis with intravenous contrast Dr. iMkaela Chavarria Work Phone: Start: 03-08-[address] Mikaela Chavarria Work Phone: Start: 03-08-[address] Mikaela Chavarria Work Phone: Start: 03-08-2022 Total cholecystectomy and exploration of common bile duct Dr. Mikaela Chavarria Work Phone: Start: 03-06-2022 End: 03-06-[address] Mikaela Chavarria Work Phone: Start: 03-06-[address] Mikaela Chavarria Work Phone: Start: 03-05-2022 US scan of gallbladder Start: 01-05-2022 Diagnostic radiography of abdomen Start: 01-05-2022 End: 01-05-2022 Viral antigen assay Start: 12-31-2021 CT of abdomen and pelvis with oral contrast Start: 12-31-2021 Computed tomography of abdomen and pelvis with intravenous contrast Start: 12-31-2021 Plain chest X-ray Start: 12-28-2021 Urine culture Start: 11-03-2014 H/O: section Previous delivery affecting Mikaela Chavarria MD Work Phone: History of cholecystectomy Statu s post laparoscopic cholecystectomy Dr. Mikaela Chavarria Work Phone: Urine culture Viral antigen assay Plan of Treatment Date Care Activity Detail Author Start: 02-28-2026 Annual PCP Team [employer] madisyn Disease Visit Annual PCP Team Chronic Disease Visit [facility] Start: 04-11-2025 Influenza vaccination C [facility] Start: 03-31-2025 End: 06-30-2025 Thyrotropin [Units/volume] in Serum or Plasma THYROID STIMULATING HORMONE Lab Routine Hypothyroidism, unspecified type Expected: 03/31/2025, Expires: 06/30/2025 [facility] Work Phone: Comment on above: Expected: 03/31/2025 , Expires: 06/30/2025 Start: 03-28-2025 End: 03-28-2025 Patient encounter procedure 03/28/2025 2:00 PM EDT Office Visit [facility] [place] [address] [place] [address] Karen Collado APRN.TECHNICIAN CHEMICAL CLEANING [address] [place] [address] 4 week follow up [facility] [place] Comment on above: 4 week follow up Start: 03-17-2025 Urine microalbumin profile [facility] Start: 03-07-2025 End: 03-07-2025 Patient encounter procedure 03/07/2025 1:45 PM EDT Appointment Radiology [address] [place] [address] Elevated liver enzymes [R74.8] Radiology Comment on above: Elevated liver enzym es [R74.8] Start: 01-24-2025 End: 04-25-2025 25-hydroxyvitamin D3 [Mass/volume] in Serum or Plasma VITAMIN D 25 HYDROXY Lab Routine Other fatigue Vitamin D deficiency Expected: 01/24/2025, Expires: 04/25/2025 [facility] Comment on above: Expected: 01/24/2025 , Expires: 04/25/2025 Start: 01-24-2025 End: 04-25-2025 CBC W Auto Differential panel - Blood COMPLETE BLOOD COUNT AND DIFFERENTIAL Lab Routine Dysuria Annual physical exam Other fatigue Expected: 01/24/2025, Expires: 04/25/2025 [facility] Comment on above: Expected: 01/24/2025 , Expires: 04/25/2025 Start: 01-24-2025 End: 04-25-2025 Cobalamin (Vitamin B12) [Mass/volume] in Serum or Plasma VITAMIN B12 Lab Routine Other fatigue Expected: 01/24/2025, Expires: 04/25/2025 [facility] Comment on above: Expected: 01/24/2025 , Expires: 04/25/2025 Start: 01-24-2025 End: 04-25-2025 Comprehensive metabolic 2000 panel - Serum or Plasma COMPREHENSIVE METABOLIC PANEL Lab Routine Dysuria Annual physical exam Other fatigue Expected: 01/24/2025, Expires: 04/25/2025 [facility] Comment on above: Expected: 01/24/2025 , Expires: 04/25/2025 Start: 01-24-2025 End: 04-25-2025 Lipid 1996 panel - Serum or Plasma LIPID PANEL, FASTING Lab Routine Annual physical exam Expected: 01/24/2025, Expires: 04/25/2025 [facility] Comment on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 SCREENING W YUE [[id number]] Order #: [id number] FUTURE Prescriptions as of 07/12/2024 - levothyroxine (SYNTHROID) 50 mcg tablet Take 1 tablet by mouth daily before breakfast. - ergocalciferol 50,000 unit capsule (VITAMIN D2, DRISDOL) Take 1 capsule by mouth two times a week. TO BE TAKEN ORALLY DIRECTED. Take 1 tablet by mouth twice weekly [id number], then decrease to 1 tablet weekly. - buPROPion (WELLBUTRIN) 75 mg tablet Take 1 tablet by mouth twice daily. - albuterol HFA (PROVENTIL HFA, VENTOLIN HFA) 90 mcg/actuation inhaler INHALE 2 PUFFS INSTRUCTED EVERY 4 HOURS NEEDED FOR WHEEZING/SHORTNESS OF BREATH. - lamoTRIgine (LAMICTAL) 25 mg tablet Take 1 tablet by mouth twice daily. Start with one pill at night for a couple weeks and increase to 1 pill 2 times a day for 2 weeks. We can go up on that as needed. - QUEtiapine (SEROQUEL) 25 mg tablet Take 1 tablet by mouth daily at bedtime. 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 Minnie Ashby MA [facility] 03-14-2024 Miscellaneous Notes Patient given results and verbalized understanding of instructions given. Minnie Ashby MA Please contact patient and let her know her urine culture did reveal bacterial growth, she does have a UTI as well as the BV/trichomonas. She needs to continue and finish the Bactrim that was given to her at her visit. documented in this encounter [facility] 03-14-2024 Telephone encounter Note Please contact patient and let her know her urine culture did reveal bacterial growth, she does have a UTI as well as the BV/trichomonas. She needs to continue and finish the Bactrim that was given to her at her visit. [facility] Work Phone: 03-13-2024 Telephone encounter Note Patient given results and verbalized understanding of instructions given. Meka Pardo LPN [facility] 03-13-2024 Miscellaneous Notes Patient given results and verbalized understanding of instructions given. Meka Pardo LPN Left message for patient to return call. Meka Pardo LPN Patient tested positive for overgrowth of normal vaginal bacteria known as BV. She also tested positive for trichomonas. Trichomonas is a sexually transmitted infection which can give similar symptoms to BV. Both are treated with the same antibiotic. Partners should be evaluated for trichomonas treatment also. Metronidazole Rx sent to the pharmacy. Negative for gonorrhea and chlamydia. Urine culture is pending - continue bactrim prescribed at the visit. documented in this encounter [facility] 03-13-2024 Telephone encounter Note Left message for patient to return call. Meka Pardo LPN [facility] 03-13-2024 Telephone encounter Note Patient tested positive for overgrowth of normal vaginal bacteria known as BV. She also tested positive for trichomonas. Trichomonas is a sexually transmitted infection which can give similar symptoms to BV. Both are treated with the same antibiotic. Partners should be evaluated for trichomonas treatment also. Metronidazole Rx sent to the pharmacy. Negative for gonorrhea and chlamydia. Urine culture is pending - continue bactrim prescribed at the visit. [facility] 03-12-2024 Telephone encounter Note Patient MyChart message requesting the following refill Refill(s) Requested: Requested Prescriptions Pending Prescriptions Disp Refills levothyroxine (SYNTHROID) 50 mcg tablet 90 tablet 1 Sig: Take 1 tablet by mouth daily before breakfast. ALLERGIES No Known Allergies (home) [phone] (cell) Last Office Visit Date: 11/08/2022 Last Distance Health Visit: Visit date not found Future Appointment: Visit date not found The patients preferred pharmacy has been captured for this encounter? yes Request is for script(s) to be escript to pharmacy. Shalonda Barrera LPN [facility] 03-12-2024 Miscellaneous Notes Patient MyChart message requesting the following refill Refill(s) Requested: Requested Prescriptions Pending Prescriptions Disp Refills levothyroxine (SYNTHROID) 50 mcg tablet 90 tablet 1 Sig: Take 1 tablet by mouth daily before breakfast. ALLERGIES No Known Allergies (home) [phone] (cell) Last Office Visit Date: 11/08/2022 Last [facility] Visit: Visit date not found Future Appointment: Visit date not found The patients preferred pharmacy has been captured for this encounter? yes Request is for script(s) to be escript to pharmacy. Shalonda Barrera LPN documented in this encounter [facility] 03-12-2024 Note HNO ID: [id number] Author: NADIRA SANDERSON APRN.TECHNICIAN [employer] Service: ? Author Type: Nurse Practitioner Type: Progress Notes Filed: 03/12/2024 12:58 Note Text: This note was created using NoteWriter. Subjective Taya Viveros is a 43 year old female. 43 year old female with PMH anxiety and depression presents for possible UTI Acute onset 2 weeks ago +burning with urination +frequency +burning Denies abdominal pain Denies flank pain Denies N/V/D Denies vaginal discharge Denies vaginal bleeding LMP-a month ago Tubal ligation She is requesting to be evaluated for STD's The history is provided by the patient. No speech and language clinician was used. UTI This is a new problem. The current episode started more than 1 week ago. The problem occurs every urination. The problem has not changed since onset.The quality of the pain is described as burning. The pain is at a severity of 5/10. The pain is moderate. There has been no fever. She is Sexually active. There is No history of pyelonephritis. Associated symptoms include frequency and urgency. Pertinent negatives include no chills, no sweats, no nausea, no vomiting, no discharge, no hematuria, no hesitancy, no possible and no flank pain. She has tried nothing for the symptoms. Her past medical history does not include kidney stones, single kidney, urological procedure, recurrent UTIs, urinary stasis or catheterization. PAST MEDICAL HISTORY No date: Dysthymic disorder Comment: Depression (non-psychotic) No date: Fracture Comment: pelvis 2004: Pulmonary embolism (HCC) Comment: on depoprovera PAST SURGICAL HISTORY No date: ANESTH, SECTION 1999, , ,10/29/11: DELIVERY ONLY No date: PAST SURGICAL HISTORY OF Comment: PLATES AND PINS PLACED IN LEFT HIP 03/08/2022: REMOVAL GALLBLADDER ALLERGIES Patient has no known allergies. MEDICATIONS albuterol HFA (PROVENTIL HFA, VENTOLIN HFA) 90 mcg/actuation inhaler INHALE 2 PUFFS INSTRUCTED EVERY 4 HOURS NEEDED FOR WHEEZING/SHORTNESS OF BREATH. QUEtiapine (SEROQUEL) 25 mg tablet Take 1 tablet by mouth daily at bedtime. sulfamethoxazole-trimethoprim (BACTRIM DS) 800-160 mg per tablet Take 1 tablet by mouth two times a day for 3 days. levothyroxine (SYNTHROID) 50 mcg tablet TAKE 1 TABLET BY MOUTH EVERY DAY BEFORE BREAKFAST (Patient not taking: Reported on 03/12/2024) ergocalciferol 50,000 unit capsule (VITAMIN D2, DRISDOL) Take 1 capsule by mouth two times a week. TO BE TAKEN ORALLY DIRECTED. Take 1 tablet by mouth twice weekly [id number], then decrease to 1 tablet weekly. (Patient not taking: Reported on 03/12/2024) buPROPion (WELLBUTRIN) 75 mg tablet Take 1 tablet by mouth twice daily. (Patient not taking: Reported on 03/12/2024) lamoTRIgine (LAMICTAL) 25 mg tablet Take 1 tablet by mouth twice daily. Start with one pill at night for a couple weeks and increase to 1 pill 2 times a day for 2 weeks. We can go up on that as needed. (Patient not taking: Reported on 03/12/2024) FAMILY HISTORY Problem Relation Age of Onset Arthritis Paternal Grandmother Breast Cancer Paternal Grandmother Arthritis Paternal Grandfather Heart Paternal Grandfather Heart Paternal Uncle P UNCLE X 4 WITH [place] Social History Tobacco Use Smoking status: Former Years: 12 Types: Cigarettes Smokeless tobacco: Never Tobacco comments: Pt is using E-cigarettes Vaping Use Vaping Use: Never used Substance Use Topics Alcohol use: No Drug use: No Review of Systems Constitutional: Negative for chills. Eyes: Negative for photophobia, pain, discharge, redness and itching. Respiratory: Negative for apnea, choking and chest tightness. Cardiovascular: Negative for chest pain and palpitations. Gastrointestinal: Negative for abdominal pain, nausea and vomiting. Genitourinary: Positive for dysuria, frequency and urgency. Negative for flank pain, hematuria, hesitancy, vaginal bleeding and vaginal discharge. Musculoskeletal: Negative for back pain. Skin: Negative for color change, pallor, rash and wound. Allergic/Immunologic: Negative for environmental allergies, food allergies and immunocompromised state. Neurological: Negative for dizziness, seizures, facial asymmetry, light-headedness, numbness and headaches. Hematological: Negative for adenopathy. Does not bruise/bleed easily. Psychiatric/Behavioral: Negative for agitation and behavioral problems. Objective BP 114/78 Pulse 109 Temp 36.8 ?C (98.3 ?F) Resp 20 Wt 62 kg (136 lb 11 oz) LMP 02/18/2024 (Approximate) SpO2 100% BMI 24.21 kg/m? Physical Exam Vitals and nursing note reviewed. Constitutional: General: She is not in acute distress. Appearance: Normal appearance. She is normal weight. She is not ill-appearing, toxic-appearing or diaphoretic. HENT: Head: Normocephalic and atraumatic. Right Ear: Ear canal and external ear normal. Left Ear: Ear canal and external ear normal. No (more content not included)... [facility] 03-12-2024 History of Present illness Narrative This note was created using Yapp. Subjective Taya Viveros is a 43 year old female. 43 year old female with PMH anxiety and depression presents for possible UTI Acute onset 2 weeks ago +burning with urination +frequency +burning Denies abdominal pain Denies flank pain Denies N/V/D Denies vaginal discharge Denies vaginal bleeding LMP-a month ago Tubal ligation She is requesting to be evaluated for STD's The history is provided by the patient. No speech and language clinician was used. UTI This is a new problem. The current episode started more than 1 week ago. The problem occurs every urination. The problem has not changed since onset.The quality of the pain is described as burning. The pain is at a severity of 5/10. The pain is moderate. There has been no fever. She is Sexually active. There is No history of pyelonephritis. Associated symptoms include frequency and urgency. Pertinent negatives include no chills, no sweats, no nausea, no vomiting, no discharge, no hematuria, no hesitancy, no possible and no flank pain. She has tried nothing for the symptoms. Her past medical history does not include kidney stones, single kidney, urological procedure, recurrent UTIs, urinary stasis or catheterization. PAST MEDICAL HISTORY No date: Dysthymic disorder Comment: Depression (non-psychotic) No date: Fracture Comment: pelvis 2004: Pulmonary embolism (HCC) Comment: on depoprovera PAST SURGICAL HISTORY No date: ANESTH, SECTION 1999, , ,10/29/11: DELIVERY ONLY No date: PAST SURGICAL HISTORY OF Comment: PLATES AND PINS PLACED IN LEFT HIP 03/08/2022: REMOVAL GALLBLADDER ALLERGIES Patient has no known allergies. MEDICATIONS albuterol HFA (PROVENTIL HFA, VENTOLIN HFA) 90 mcg/actuation inhaler INHALE 2 PUFFS INSTRUCTED EVERY 4 HOURS NEEDED FOR WHEEZING/SHORTNESS OF BREATH. QUEtiapine (SEROQUEL) 25 mg tablet Take 1 tablet by mouth daily at bedtime. sulfamethoxazole-trimethoprim (BACTRIM DS) 800-160 mg per tablet Take 1 tablet by mouth two times a day for 3 days. levothyroxine (SYNTHROID) 50 mcg tablet TAKE 1 TABLET BY MOUTH EVERY DAY BEFORE BREAKFAST (Patient not taking: Reported on 03/12/2024) ergocalciferol 50,000 unit capsule (VITAMIN D2, DRISDOL) Take 1 capsule by mouth two times a week. TO BE TAKEN ORALLY DIRECTED. Take 1 tablet by mouth twice weekly [id number], then decrease to 1 tablet weekly. (Patient not taking: Reported on 03/12/2024) buPROPion (WELLBUTRIN) 75 mg tablet Take 1 tablet by mouth twice daily. (Patient not taking: Reported on 03/12/2024) lamoTRIgine (LAMICTAL) 25 mg tablet Take 1 tablet by mouth twice daily. Start with one pill at night for a couple weeks and increase to 1 pill 2 times a day for 2 weeks. We can go up on that as needed. (Patient not taking: Reported on 03/12/2024) FAMILY HISTORY Problem Relation Age of Onset Arthritis Paternal Grandmother Breast Cancer Paternal Grandmother Arthritis Paternal Grandfather Heart Paternal Grandfather Heart Paternal Uncle P UNCLE X 4 WITH [place] Social History Tobacco Use Smoking status: Former Years: 12 Types: Cigarettes Smokeless tobacco: Never Tobacco comments: Pt is using E-cigarettes Vaping Use Vaping Use: Never used Substance Use Topics Alcohol use: No Drug use: No Review of Systems Constitutional: Negative for chills. Eyes: Negative for photophobia, pain, discharge, redness and itching. Respiratory: Negative for apnea, choking and chest tightness. Cardiovascular: Negative for chest pain and palpitations. Gastrointestinal: Negative for abdominal pain, nausea and vomiting. Genitourinary: Positive for dysuria, frequency and urgency. Negative for flank pain, hematuria, hesitancy, vaginal bleeding and vaginal discharge. Musculoskeletal: Negative for back pain. Skin: Negative for color change, pallor, rash and wound. Allergic/Immunologic: Negative for environmental allergies, food allergies and immunocompromised state. Neurological: Negative for dizziness, seizures, facial asymmetry, light-headedness, numbness and headaches. Hematological: Negative for adenopathy. Does not bruise/bleed easily. Psychiatric/Behavioral: Negative for agitation and behavioral problems. Objective BP 114/78 Pulse 109 Temp 36.8 C (98.3 F) Resp 20 Wt 62 kg (136 lb 11 oz) LMP 02/18/2024 (Approximate) SpO2 100% BMI 24.21 kg/m Physical Exam Vitals and nursing note reviewed. Constitutional: General: She is not in acute distress. Appearance: Normal appearance. She is normal weight. She is not ill-appearing, toxic-appearing or diaphoretic. HENT: Head: Normocephalic and atraumatic. Right Ear: Ear canal and external ear normal. Left Ear: Ear canal and external ear normal. Nose: Nose normal. No congestion or rhinorrhea. Mouth/Throat: Mouth: Mucous membranes are moist. Pharynx: No oropharyngeal exudate or posterior oropharyngeal erythema. Eyes: General: Right eye: No discharge. Left eye: No discharge. Extraocular Movements: Extraocular movements intact. Conjunctiva/sclera: Conjunctivae normal. Pupils: Pupils are equal, round, and reactive to light. Cardiovascular: Rate and Rhythm: Normal rate and regular rhythm. Pulses: Normal pulses. Heart sounds: Normal heart sounds. No murmur heard. No friction rub. Pulmonary: Effort: Pulmonary effort is normal. No respiratory distress. Breath sounds: Normal breath sounds. No stridor. No wheezing, rhonchi or rales. Chest: Chest wall: No tenderness. Abdominal: General: Abdomen is flat. There is no distension. Palpations: Abdomen is soft. There is no mass. Tenderness: There is no abdominal tenderness. There is no right CVA tenderness, left CVA tenderness, guarding or rebound. Hernia: No hernia is present. Genitourinary: Comments: Declines pelvic exam Musculoskeletal: General: No swelling, tenderness, deformity or signs of injury. Normal range of motion. Cervical back: Normal range of motion and neck supple. No rigidity. Right lower leg: No edema. Left lower leg: No edema. Lymphadenopathy: Cervical: No cervical adenopathy. Skin: General: Skin is warm and dry. Capillary Refill: Capillary refill takes less than 2 seconds. Coloration: Skin is not jaundiced or pale. Findings: No bruising, erythema, lesion or rash. Neurological: General: No focal deficit present. Mental Status: She is alert and oriented to person, place, and time. Cranial Nerves: No cranial nerve deficit. Sensory: No sensory deficit. Motor: No weakness. Coordination: Coordination normal. Gait: Gait normal. Psychiatric: Mood and Affect: Mood normal. Behavior: Behavior normal. Thought Content: Thought content normal. Judgment: Judgment normal. Assessment and Plan ASSESSMENT/PLAN: 1. Cystitis - ICD9: 595.9, ICD10: N30.90 (primary diagnosis) acute - UA positive for vineet esterase, hematuria, and nitrates - Send urine for culture - Begin treatment with Bactrim DS BID for 3 days - Patient education for prevention given - UA DIP, URINE (POC) - URINE CULTURE 2. Encounter for screening examination for sexually transmitted disease - ICD9: V74.5, ICD10: Z11.3 Requesting testing Declines pelvic exam and requests self swab - HARSHAD/TRICHOMONAS NAAT - BACTERIAL VAGINOSIS NAAT - GONORRHEA/CHLAMYDIA NAAT Nadira Sanderson APRN.TECHNICIAN [employer] documented in this encounter [facility] 12-12-2022 Miscellaneous Notes Pharmacy notified. Pharmacist states unsure why this was put back to us. She sent it through again, it went through no problem. Please disregard this notice. Please call pharmacy and ask why they want 24? It is only twice a week for 1 month then weekly. I do not want to confuse the patient. Thank you Karen Collado APRN.AIDA Patient has been identified by name and date of : No Patient phones for refill(s): Requested Prescriptions Pending Prescriptions Disp Refills ergocalciferol 50,000 unit capsule (VITAMIN D2, DRISDOL) [Pharmacy Med Name: VITAMIN D2 1.25MG(50,000 UNIT)] 24 capsule 2 Sig: TAKE 1 CAPSULE BY MOUTH TWICE WEEKLY FOR ONE MONTH, THEN DECREASE TO 1 CAPSULE ONCE WEEKLY DIRECTED Date of last office visit in primary care: 11/08/22 Last 2 Encounter Wt Readings: Date: Wt: 11/08/2022 66.7 kg (147 lb) 11/05/2022 67.6 kg (149 lb) Previous labs/tests for medication: Not applicable Please advise. Thank you. Latoya Larose LPN documented in this encounter [facility] 12-02-2022 Miscellaneous Notes Pharmacy is asking for a 90 day supply. Last seen pcp 11/08/22. documented in this encounter [facility] 11-18-2022 Miscellaneous Notes Left message for return call. Patient has vitamin d def and she has thyroid deficiency which may be one of the main reasons she is feeling this way. I have sent the thyroid medication which she needs to take empty stomach first thing in the morning and wait for at least 30 mins before eating, She should also take the vit d 2 times every week after eating after food. Regards, Mikaela Chavarria MD documented in this encounter [facility] 11-15-2022 Miscellaneous Notes Behavioral Health Social Work Progress Note Patient identified for [facility] from: PCP Reason for referral: Resources Behavioral Health Resources: Psychology - talk therapy, Psychiatry med management [facility] encounter type: Telephone Encounter Attempts to Outreach: 3 attempts Referral made: Psychiatry - External, Psychology - External Psychology-External referral type: Therapy Psychiatry-External referral type: Medication Management Reason for external referral: Wait times at [facility] too long Final Disposition: Resources given Patient Discharged?: Yes Patient reported that caregiver was able to meet their needs today?: N/A [facility] made a second attempt at reaching patient by phone, as she did not return the first phone call or read her [employer] message. SW left a second voicemail reminding patient of the resources and giving contact information should questions arise. CORNELIO León, ACM-SW November 15, 2022 documented in this encounter [facility] 11-12-2022 History of Present illness Narrative This consult is seen at the kind request of Dr. Mikaela Chavarria of internal medicine, and my final recommendations will be communicated to the requesting health care provider by way of shared electronic medical record. This note is formatted with the impression and plan first and the history and physical to follow. IMPRESSION 42-year-old female with left nasal irritation. Nasal endoscopy today was normal. RECOMMENDATION/PLAN I do not see any abnormal lesion or growth that is contributing to patient's nasal symptoms. Patient was reassured. I will see her back if her symptoms gets worse or anytime she wants to have a repeat exam. Chief Complaint Left nasal irritation History of Present Illness Taya Viveros is a 42 year old female presents for evaluation of left nasal irritation. In the last 6 months, patient reports intermittent left nasal irritation. She feels like something is on the inside of her nose on the left side of the septum. Patient denies any pain or bleeding. Occasionally she feels like there is some crusting in the nose. She only has some minor discomfort when she pushes on the septum with her finger. She denies any trouble with breathing. PAST MEDICAL HISTORY Diagnosis Date Dysthymic disorder Depression (non-psychotic) Fracture pelvis Pulmonary embolism (HCC) 2004 on depoprovera PAST SURGICAL HISTORY Procedure Laterality Date ANESTH, SECTION DELIVERY ONLY 1999, , ,10/29/11 PAST SURGICAL HISTORY OF PLATES AND PINS PLACED IN LEFT HIP REMOVAL GALLBLADDER 03/08/2022 FAMILY HISTORY Problem Relation Age of Onset Arthritis Paternal Grandmother Breast Cancer Paternal Grandmother Arthritis Paternal Grandfather Heart Paternal Grandfather Heart Paternal Uncle P UNCLE X 4 WITH TX CURRENT OUTPATIENT MEDICATIONS Current Outpatient Medications on File Prior to Visit Medication Sig buPROPion (WELLBUTRIN) 75 mg tablet Take 1 tablet by mouth twice daily. albuterol HFA (PROVENTIL HFA, VENTOLIN HFA) 90 mcg/actuation inhaler INHALE 2 PUFFS INSTRUCTED EVERY 4 HOURS NEEDED FOR WHEEZING/SHORTNESS OF BREATH. lamoTRIgine (LAMICTAL) 25 mg tablet Take 1 tablet by mouth twice daily. Start with one pill at night for a couple weeks and increase to 1 pill 2 times a day for 2 weeks. We can go up on that as needed. QUEtiapine (SEROQUEL) 25 mg tablet Take 1 tablet by mouth daily at bedtime. No current facility-administered medications on file prior to visit. ALLERGIES ALLERGIES No Known Allergies The remainder of the patient's history and review of systems is on the outpatient questionaire which was reviewed by me and placed in the outpatient chart. PHYSICAL EXAMINATION Appearance: General examination of the patient's external face, head and neck reveals no abnormalities. The patient is not retrognathic The patient's voice is strong and clear and they communicate easily. Ears: Exam of the ears revealed normal appearing external auditory canals, tympanic membranes, and middle ears. No signs of infection or fluid were seen. Nose: External nasal exam was normal. Throat: There were no lesions to visualization or palpation of the lips, cheeks, gums, floor of mouth, tongue, hard and soft palate, tonsillar pillars or posterior pharyngeal wall. Neck: Palpation of the neck revealed no adenopathy, salivary gland masses or asymmetry, or thyroid masses or enlargement. Procedure In order to assess the patient's complaint of foreign body sensation in the left side of the nose, nasal endoscopy was performed. Consent: verbal Anesthesia: topical lidocaine and Afrin After spraying the nose with topical 4% lidocaine and Afrin the nasal endoscope was passed. Findings: Septum was mostly straight with a small septal spur posteriorly on the left side. Bilateral middle meatus were clear without any pus or polyps. Nasopharynx was patent. There was no mucosal disease or any mass/lesion inside the nose on exam today. Marisol Nance MD documented in this encounter [facility] 11-08-2022 Miscellaneous Notes Behavioral Health Social Work Progress Note Patient identified for [facility] from: PCP Reason for referral: Resources Behavioral Health Resources: Psychology - talk therapy, Psychiatry med management [facility] encounter type: Telephone Encounter Attempts to Outreach: 1 attempt Referral made: Psychiatry - External, Psychology - External Psychology-External referral type: Therapy Psychiatry-External referral type: Medication Management Reason for external referral: Wait times at [facility] too long Final Disposition: Unable to reach Patient Discharged?: No Patient reported that caregiver was able to meet their needs today?: N/A Phone call placed today that went to [phone]. Left my contact information and brief nature of call. Initial outreach also completed via [employer] sending list of providers. These include: [facility] [address] [place] [id number] [facility] [address] [place] [address] [facility] [address] [place], [place] [phone] CORNELIO León, ACM-SW November 08, 2022 documented in this encounter [facility] 11-08-2022 History of Present illness Narrative Reason for Visit Patient presents with: Follow Up: h/a's and has had a fever with body aches x 1 day took aleve this morning at 8:30a Taya Viveros is a 42 year old female who presents here today for Above Complaints.. Health Maintenance HEPATITIS B(1 of 3 - 3-dose series) COVID-19 VACCINE(1) PAP TESTING HPV TESTING MAMMOGRAM HPI She has been working on a lot of mental health stuff. Patient thought she was getting more depressed. Tired and fatigued. She is not able to do as much as she wanted to do in the past. There is a lot more stuff her mind is trying to focus on and unable to. She has not sex drive. She was put on the seroquel for sleeping. Her mood more or less is not fluctuating. it is the depression that is getting to her. Due to lack of sex drive she stopped the prozac. No ideas to harm herself Symptoms: anhedonia, fatigue, sleeping too much, poor appetite, trouble concentrating, excessive worrying, irritability, trouble relaxing. Panic attacks: yes and is taking the lorazepam Sleep: not optimum Alcohol use: does not drink any alcohol Drug use: No Appetite: poor Stresses: no external stressors Suicidal Thoughts: No suicidal ideation, intent or plan Support: yes Counseling: group counseling on line. Personal mental health hx: None Family mental health hx: Mood: The patient denies symptoms related to daphne. We put her on the wellbutrin. She is also sick today , she had fever and body aches. Taper seroquel by taking every other day for a month and then stop it If headache is not better with current medication changes then we revist her issues No problem-specific Assessment & Plan notes found for this encounter. PAST MEDICAL HISTORY Diagnosis Date Dysthymic disorder Depression (non-psychotic) Fracture pelvis Pulmonary embolism (HCC) 2004 on depoprovera PAST SURGICAL HISTORY Procedure Laterality Date ANESTH, SECTION DELIVERY ONLY 1999, , ,10/29/11 PAST SURGICAL HISTORY OF PLATES AND PINS PLACED IN LEFT HIP REMOVAL GALLBLADDER 03/08/2022 FAMILY HISTORY Problem Relation Age of Onset Arthritis Paternal Grandmother Breast Cancer Paternal Grandmother Arthritis Paternal Grandfather Heart Paternal Grandfather Heart Paternal Uncle P UNCLE X 4 WITH [place] Social History Tobacco Use Smoking status: Former Years: 12.00 Types: Cigarettes Smokeless tobacco: Never Tobacco comments: Pt is using E-cigarettes Substance Use Topics Alcohol use: No Drug use: No Past medical history, appointments, medications, allergies reviewed. Pertinent Lab/Diagnostic Studies are reviewed and discussed today Current Outpatient Medications: predniSONE (DELTASONE) 20 mg tablet albuterol HFA (PROVENTIL HFA, VENTOLIN HFA) 90 mcg/actuation inhaler lamoTRIgine (LAMICTAL) 25 mg tablet QUEtiapine (SEROQUEL) 25 mg tablet FLUoxetine (PROZAC) 40 mg capsule Review of Systems CONSTITUTIONAL: No fevers, chills night sweats, unintended weight loss CARDIOVASCULAR: No chest pain, dyspnea, palpitations, orthopnea, PND, ankle edema. PULM: No dyspnea, unexplained cough. GI: No dysphagia/odynophagia, problematic reflux, constipation, diarrhea, changes in stool habits, hematochezia, melena. : No new urinary complaints, including dysuria, gross hematuria or pyuria. NEURO: No new balance problems, peripheral weakness/paresthesias or numbness of concern. Physical Exam BP 110/60 (BP Site: Left Arm, BP Position: Sitting, BP Cuff Size: Large Adult) Pulse 84 Temp 36.8 C (98.3 F) Resp 12 Ht 160 cm (5' 3) Wt 66.7 kg (147 lb) LMP 11/04/2022 (Approximate) SpO2 100% BMI 26.04 kg/m General appearance: Well appearing, alert, in no acute distress, well nourished. Skin: Skin color, texture, turgor normal, no suspicious rashes or lesions Head: Normocephalic, no masses, lesions, tenderness or abnormalities Eyes: Anicteric sclera. Pupils are equally round and reactive to light. Extraocular movements are intact. Wrist: there is some wrist stuffness to movement ation, clubbing or cyanosis. Good capillary refill. ASSESSMENT/PLAN: 1. Moderate episode of recurrent major depressive disorder (HCC) - ICD9: 296.32, ICD10: F33.1 (primary diagnosis) Started well butrin and stopped the prozac , hoping less sexual effects 2. Mood disorder (HCC) - ICD9: 296.90, ICD10: F39 Benefit from talk therapy - CONSULT TO PRIMARY CARE BEHAVIORAL HEALTH ADULT 3. Attention deficit hyperactivity disorder (ADHD), unspecified ADHD type - ICD9: 314.01, ICD10: F90.9 - CONSULT TO PRIMARY CARE BEHAVIORAL HEALTH ADULT 4. Insomnia, unspecified type - ICD9: 780.52, ICD10: G47.00 - CONSULT TO PRIMARY CARE BEHAVIORAL HEALTH ADULT Mikaela Chavarria MD documented in this encounter [facility] 11-05-2022 Miscellaneous Notes Patient notified, verbalized understanding. Prudencio Hoang Ma Labs ordered, included a fasting lipid as well Tonya Collado APRN.AIDA Pt came in for labs have from May. TSH, VIT D, HEP C. Please advice and call patient when reordered. Thanks Larisa GIL documented in this encounter [facility] 08-28-2022 Miscellaneous Notes Patient has been identified by name and date of : Yes, Patient phones for refill(s): Requested Prescriptions Pending Prescriptions Disp Refills albuterol HFA (PROVENTIL HFA, VENTOLIN HFA) 90 mcg/actuation inhaler [Pharmacy Med Name: ALBUTEROL HFA (PROVENTIL) INH] 6.7 Each 1 Sig: INHALE 2 PUFFS INSTRUCTED EVERY 4 HOURS NEEDED FOR WHEEZING/SHORTNESS OF BREATH. Date of last office visit in primary care: 08/26/2022 4 month follow-up: 10/08/2022 Last 2 Encounter Wt Readings: Date: Wt: 08/26/2022 69.9 kg (154 lb) 06/03/2022 70.8 kg (156 lb) Previous labs/tests for medication: Not applicable Please advise. Thank you. Zuly Robles LPN documented in this encounter [facility] 08-26-2022 History of Present illness Narrative Reason for Visit Patient presents with: Follow Up: growth in left sinus area x 2 months Taya Viveros is a 42 year old female who presents here today for Above Complaints.. Health Maintenance HEPATITIS B(1 of 3 - 3-dose series) COVID-19 VACCINE(1) HEPATITIS C SCREENING PAP TESTING HPV TESTING MAMMOGRAM HPI She noticed a scab in her nose 2 months ago. She expected to fall off but for the past 2 months , it has not fallen but has actually grown. Denies having any bleeding from that spot. Patient notes she can feel a stuffed sinus or stuffy nose. No bleeding that she notices or dischrage. Denies sinusitis recently. She basically feels like there is something in there and that's why and how she noticed it. No problem-specific Assessment & Plan notes found for this encounter. PAST MEDICAL HISTORY Diagnosis Date Dysthymic disorder Depression (non-psychotic) Fracture pelvis Pulmonary embolism (HCC) 2004 on depoprovera PAST SURGICAL HISTORY Procedure Laterality Date ANESTH, SECTION DELIVERY ONLY 1999, , ,10/29/11 PAST SURGICAL HISTORY OF PLATES AND PINS PLACED IN LEFT HIP REMOVAL GALLBLADDER 03/08/2022 FAMILY HISTORY Problem Relation Age of Onset Arthritis Paternal Grandmother Breast Cancer Paternal Grandmother Arthritis Paternal Grandfather Heart Paternal Grandfather Heart Paternal Uncle P UNCLE X 4 WITH TX Social History Tobacco Use Smoking status: Former Years: 12.00 Types: Cigarettes Smokeless tobacco: Never Tobacco comments: Pt is using E-cigarettes Substance Use Topics Alcohol use: No Drug use: No Past medical history, appointments, medications, allergies reviewed. Pertinent Lab/Diagnostic Studies are reviewed and discussed today Current Outpatient Medications: ALPRAZolam (XANAX) 1 mg tablet albuterol HFA (VENTOLIN HFA) 90 mcg/actuation inhaler lamoTRIgine (LAMICTAL) 25 mg tablet QUEtiapine (SEROQUEL) 25 mg tablet FLUoxetine (PROZAC) 40 mg capsule Review of Systems CONSTITUTIONAL: No fevers, chills night sweats, unintended weight loss CARDIOVASCULAR: No chest pain, dyspnea, palpitations, orthopnea, PND, ankle edema. PULM: No dyspnea, unexplained cough. GI: No dysphagia/odynophagia, problematic reflux, constipation, diarrhea, changes in stool habits, hematochezia, melena. : No new urinary complaints, including dysuria, gross hematuria or pyuria. NEURO: No new balance problems, peripheral weakness/paresthesias or numbness of concern. Physical Exam BP 106/68 (BP Site: Left Arm, BP Position: Sitting, BP Cuff Size: Large Adult) Pulse 84 Temp 36.6 C (97.8 F) Resp 12 Ht 160 cm (5' 3) Wt 69.9 kg (154 lb) LMP 04/13/2018 (Approximate) SpO2 99% BMI 27.28 kg/m General appearance: Well appearing, alert, in no acute distress, well nourished. Skin: Skin color, texture, turgor normal, no suspicious rashes or lesions Head: Normocephalic, no masses, lesions, tenderness or abnormalities Nose: there is a small scab in the left mucosal area of the left ala. It seems like a while slightly raised lesion Eyes: Anicteric sclera. Pupils are equally round and reactive to light. Extraocular movements are intact. ASSESSMENT/PLAN: 1. Nasal mass - ICD9: 478.19, ICD10: J34.89 - CONSULT TO ENT Mikaela Chavarria MD documented in this encounter [facility] 08-14-2022 Miscellaneous Notes PDMP website checked and validated. All prescriptions have been APPROPRIATELY filled. No suspicious activity was identified. 08/14/2022 by Karen Collado APRN.AIDA Last office visit: 06/03/22 Next appointment scheduled: 10/08/22 Last labs: 05/12/21 last tox screen Patient phones requesting refills as follows: Requested Prescriptions Pending Prescriptions Disp Refills ALPRAZolam (XANAX) 1 mg tablet 20 tablet 0 Sig: Take 1 tablet by mouth at bedtime as needed for up to 30 days. Please review and advise. Susannah Carver LPN documented in this encounter [facility] 07-10-2022 Miscellaneous Notes PDMP website checked and validated. All prescriptions have been APPROPRIATELY filled. No suspicious activity was identified. 07/10/2022 by Karen Collado APRN.AIDA Patient has been identified by name and date of : Yes Patient phones for refill(s): Requested Prescriptions Pending Prescriptions Disp Refills ALPRAZolam (XANAX) 1 mg tablet 20 tablet 0 Sig: Take 1 tablet by mouth at bedtime as needed for up to 30 days. Date of last office visit in primary care: 06/03/2022 Last 2 Encounter Wt Readings: Date: Wt: 06/03/2022 70.8 kg (156 lb) 12/28/2021 65.9 kg (145 lb 3.2 oz) Previous labs/tests for medication: Not applicable Please advise. Thank you. Latoya Larose LPN documented in this encounter [facility] 06-14-2022 Miscellaneous Notes pt called, states she is taking 25 mg, 1 tablet 2 times per day. [employer] message Please verify what dosage patient is taking of lamictal, not stated in last note by Dr. Chavarria Thank you Karen Collado APRN.AIDA Patient has been identified by name and date of : Yes Patient phones for refill(s): Requested Prescriptions Pending Prescriptions Disp Refills albuterol HFA (VENTOLIN HFA) 90 mcg/actuation inhaler 1 Each 3 Sig: Inhale 2 Puffs as instructed every 4 hours as needed for wheezing/shortness of breath. lamoTRIgine (LAMICTAL) 25 mg tablet 45 tablet 1 Sig: Take 1 tablet by mouth once daily for 90 doses. Start with one pill at night for a couple weeks and increase to 1 pill 2 times a day for 2 weeks. We can go up on that as needed. PLEASE VERIFY DOSAGE AND DISPENSE COUNT PRIOR TO SENDING TO PHARMACY Date of last office visit in primary care: 06/03/22 Last 2 Encounter Wt Readings: Date: Wt: 06/03/2022 70.8 kg (156 lb) 12/28/2021 65.9 kg (145 lb 3.2 oz) Previous labs/tests for medication: Not applicable Please advise. Thank you. Pricila Mesa documented in this encounter [facility] 06-07-2022 Miscellaneous Notes Left a message for pt to call the office and ask to speak to a nurse. Also mailed a letter asking pt to call the office regarding medication Lamictal. Jyoti Wall LPN Left a message for pt to call the office and ask to speak to a nurse. Jyoti Wall LPN [employer] message sent of below. Will await pt response. Marbella Arias Ma Please verify what dose of lamictal patient is currently taking. Did she stay with 1 pill once a day or increase to 1 pill twice a day? Thank you Karen Collado APRN.AIDA Records show a valid rx for Prozac at your pharmacy. Patient has been identified by name and date of : Yes Patient phones for refill(s): Requested Prescriptions Pending Prescriptions Disp Refills lamoTRIgine (LAMICTAL) 25 mg tablet 45 tablet 1 Sig: Start with one pill at night for a couple weeks and increase to 1 pill 2 times a day for 2 weeks. We can go up on that as needed. Refused Prescriptions Disp Refills FLUoxetine (PROZAC) 40 mg capsule 90 capsule 2 Sig: Take 1 capsule by mouth once daily. Date of last office visit in primary care: 03/13/22 next apt 06/03/22 Last 2 Encounter Wt Readings: Date: Wt: 12/28/2021 65.9 kg (145 lb 3.2 oz) 11/19/2021 71.2 kg (157 lb) Previous labs/tests for medication: Not applicable Jyoti Wall LPN documented in this encounter [facility] 06-03-2022 History of Present illness Narrative Reason for Visit Patient presents with: Recheck: discuss meds Immunizations: Flu vaccination Taya Viveros is a 41 year old female who presents here today for Above Complaints.. Health Maintenance HEPATITIS B(1 of 3 - 3-dose series) COVID-19 VACCINE(1) HEPATITIS C SCREENING PAP TESTING HPV TESTING HPI Has anxiety, insomnia and cyclothymia. Lamictal is working for mood, prozac is not helping as much with anxiety. She is still not sleeping well Patient has been on prozac on and off for a while. For anxiety she has tried buspar and it has not worked. Wiling to try seroquel for anxiety and insomnia. Weight has been up and down recently. No problem-specific Assessment & Plan notes found for this encounter. PAST MEDICAL HISTORY Diagnosis Date Dysthymic disorder Depression (non-psychotic) Fracture pelvis Pulmonary embolism (HCC) 2004 on depoprovera PAST SURGICAL HISTORY Procedure Laterality Date ANESTH, SECTION DELIVERY ONLY 1999, , ,10/29/11 PAST SURGICAL HISTORY OF PLATES AND PINS PLACED IN LEFT HIP REMOVAL GALLBLADDER 03/08/2022 FAMILY HISTORY Problem Relation Age of Onset Arthritis Paternal Grandmother Breast Cancer Paternal Grandmother Arthritis Paternal Grandfather Heart Paternal Grandfather Heart Paternal Uncle P UNCLE X 4 WITH [place] Social History Tobacco Use Smoking status: Former Years: 12.00 Types: Cigarettes Smokeless tobacco: Never Tobacco comments: Pt is using E-cigarettes Substance Use Topics Alcohol use: No Drug use: No Past medical history, appointments, medications, allergies reviewed. Pertinent Lab/Diagnostic Studies are reviewed and discussed today Current Outpatient Medications: albuterol HFA (VENTOLIN HFA) 90 mcg/actuation inhaler FLUoxetine (PROZAC) 40 mg capsule lamoTRIgine (LAMICTAL) 25 mg tablet buPROPion SR (WELLBUTRIN SR) 150 mg 12 hr tablet Review of Systems CONSTITUTIONAL: No fevers, chills night sweats, unintended weight loss CARDIOVASCULAR: No chest pain, dyspnea, palpitations, orthopnea, PND, ankle edema. PULM: No dyspnea, unexplained cough. GI: No dysphagia/odynophagia, problematic reflux, constipation, diarrhea, changes in stool habits, hematochezia, melena. : No new urinary complaints, including dysuria, gross hematuria or pyuria. NEURO: No new balance problems, peripheral weakness/paresthesias or numbness of concern. Physical Exam BP 106/66 (BP Site: Left Arm, BP Position: Sitting, BP Cuff Size: Large Adult) Pulse 82 Temp 36.6 C (97.9 F) Resp 12 Ht 160 cm (5' 3) Wt 70.8 kg (156 lb) LMP 04/13/2018 (Approximate) SpO2 99% BMI 27.63 kg/m General appearance: Well appearing, alert, in no acute distress, well nourished. Skin: Skin color, texture, turgor normal, no suspicious rashes or lesions Head: Normocephalic, no masses, lesions, tenderness or abnormalities Eyes: Anicteric sclera. Pupils are equally round and reactive to light. Extraocular movements are intact. Lungs: Lungs clear to auscultation. No wheezing, rhonchi, rales Heart: RRR without murmur, gallop, or rubs. Extremities: No deformities, edema, skin discoloration, clubbing or cyanosis. Good capillary refill. ASSESSMENT/PLAN: 1. 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 Need for influenza vaccination - ICD9: V04.81, ICD10: Z23 - INFLUENZA VACCINE QUADRIVALENT 6 MO - 64 YRS IM 3. Special screening examination for viral disease - ICD9: V73.99, ICD10: Z11.59 - HEP C AB IA W/CONF SCRN 4. Encounter for gynecological examination without abnormal finding - ICD9: V72.31, ICD10: Z01.419 - Completed pelvic and breast exam - Encouraged monthly BSE - Follow up for annual exam in one year. - CONSULT TO GYNECOLOGY 5. Insomnia, unspecified type - ICD9: 780.52, ICD10: G47.00 6. Anxiety - ICD9: 300.00, ICD10: F41.9 Will try her on seroquel as the prozac at 40 mgs did not help her. 7. Weight gain - ICD9: 783.1, ICD10: R63.5 Tsh was elevated last time it was checked. 8. Vitamin D deficiency - ICD9: 268.9, ICD10: E55.9 - VITAMIN D 25 HYDROXY 9. Hypothyroidism, unspecified type - ICD9: 244.9, ICD10: E03.9 - Instructed patient on importance of taking on an empty stomach either first thing in the morning or at bedtime. Stable - Continue current medications - TSH BLD Mikaela Chavarria MD documented in this encounter [facility] 04-25-2022 Miscellaneous Notes Called PT LVM to call back and schedule follow up office visit. Thanks Can we please call pt and assist in scheduling an OV with PCP/Team for f/u regarding imaging pt had completed at [facility]. PCP requested a f/u visit. Re: Lesion R adnexal found on CT performed at [facility] ED on 04/02/22. Aileen Golden Ma documented in this encounter [facility] 03-27-2022 Miscellaneous Notes Patient has been identified by name and date of : Yes Patient phones for refill(s): Requested Prescriptions Pending Prescriptions Disp Refills FLUoxetine (PROZAC) 40 mg capsule [Pharmacy Med Name: FLUOXETINE HCL 40 MG CAPSULE] 90 capsule 2 Sig: TAKE 1 CAPSULE BY MOUTH ONCE DAILY Date of last office visit in primary care: 03/13/2022 Last 2 Encounter Wt Readings: Date: Wt: 12/28/2021 65.9 kg (145 lb 3.2 oz) 11/19/2021 71.2 kg (157 lb) Previous labs/tests for medication: Not applicable Please advise. Thank you. Latoya Larose LPN documented in this encounter [facility] 03-13-2022 History of Present illness Narrative Chief Complaint No chief complaint on file. MAYITO Viveros is a 41 year old female who is contacted today for a virtual/telemedicine visit. This is an established patient of Dr. Mikaela Chavarria MD. Patient had to have her gall bladder removed because she had some stones ,a few days ago. Patient feels better but her side is still hurting her, during the hospital stay she was told her potassium is really low. Last visit we had started lamictal for cyclothymia. She is only on 1 pill, did not increase it as she is afraid of medications. She gets anxious about the side effects of the medication. Encouraged her to increase her medication and to cont prozac. She wants to increase the medication prozac. Asked for xanax, I told her to try the above and then we can consider xanax Past medical history, appointments, medications, allergies reviewed 03/13/2022 Previous Medical History PAST MEDICAL HISTORY Diagnosis Date Dysthymic disorder Depression (non-psychotic) Fracture pelvis Pulmonary embolism (HCC) 2004 on depoprovera Previous Surgical History PAST SURGICAL HISTORY Procedure Laterality Date ANESTH, SECTION DELIVERY ONLY 1999, , ,10/29/11 PAST SURGICAL HISTORY OF PLATES AND PINS PLACED IN LEFT HIP Family History FAMILY HISTORY Problem Relation Age of Onset Arthritis Paternal Grandmother Breast Cancer Paternal Grandmother Arthritis Paternal Grandfather Heart Paternal Grandfather Heart Paternal Uncle P UNCLE X 4 WITH TX Patient Allergies ALLERGIES No Known Allergies Current Medications Current Outpatient Medications on File Prior to Visit Medication Sig lamoTRIgine (LAMICTAL) 25 mg tablet Start with one pill at night for a couple weeks and increase to 1 pill 2 times a day for 2 weeks. We can go up on that as needed. albuterol HFA (VENTOLIN HFA) 90 mcg/actuation inhaler Inhale 2 Puffs as instructed every 4 hours as needed for wheezing/shortness of breath. FLUoxetine (PROZAC) 20 mg capsule Take 1 capsule by mouth once daily. buPROPion SR (WELLBUTRIN SR) 150 mg 12 hr tablet Take 1 tablet by mouth twice daily. No current facility-administered medications on file prior to visit. Social History Social History Tobacco Use Smoking status: Former Smoker Years: 12.00 Smokeless tobacco: Never Used Tobacco comment: Pt is using E-cigarettes Substance Use Topics Alcohol use: No Drug use: No Review of Symptoms GENERAL: No weight loss. No malaise or fevers HEENT: Negative for headaches No eye discharge or redness No earaches or drainage No sore throat Nose POS/NEG for congestion and nasal discharge NECK: Negative for lumps, pain or significant neck swelling RESPIRATORY: No wheezing, SOB, Difficulty breathing. CARDIOVASCULAR: Negative for chest pain GI: No nausea, vomiting, or diarrhea MUSCULOSKELETAL: Negative for muscle aches or bodyaches SKIN: Negative for lesions, rash, and itching Neuro: No lightheadedness or dizziness EXAM: LMP 04/13/2018 (Approximate) Deferred physical exam as visit was completed over the phone. Virtual visit completed using video, limited exam completed. General Appearance: Well appearing, alert, in no acute distress, well-hydrated, well nourished. Skin: Skin color Head: Normocephalic Psych: Attitude - cooperative, easily engaged in conversation Appearance - normal, hygiene and grooming appropriate Affect - euthymic, normal mood Mental status: Alert, attentive. Speech is clear and fluent with good repetition, comprehension Coordination: No abnormal or extraneous movements. Gait/Stance: Posture is normal. Health Maintenance List COVID-19 VACCINE(1) Never done HEPATITIS C SCREENING Never done PAP TESTING due on 11/02/2019 HPV TESTING due on 11/02/2019 INFLUENZA(1) due on 04/11/2022 DTAP,TDAP,TD(2 - Td or Tdap) due on 03/17/2025 HIV SCREENING Completed Data reviewed Last 5 Encounter BP Readings: Date: BP: 12/28/2021 120/64 11/19/2021 118/66 05/12/2021 112/70 04/29/2018 98/56 11/04/2017 99/83 BMI Readings from Last 5 Encounters: 12/28/21 : 25.72 kg/m 11/19/21 : 27.81 kg/m 05/12/21 : 25.38 kg/m 04/29/18 : 25.51 kg/m 11/04/17 : 26.75 kg/m Last 5 Encounter Wt Readings: Date: Wt: 12/28/2021 65.9 kg (145 lb 3.2 oz) 11/19/2021 71.2 kg (157 lb) 05/12/2021 65 kg (143 lb 4.8 oz) 04/29/2018 65.3 kg (144 lb) 11/04/2017 68.5 kg (151 lb) Medication and allergy list reviewed, reconciled and updated 03/13/2022 ASSESSMENT/PLAN: 1. Hypokalemia - ICD9: 276.8, ICD10: E87.6 (primary diagnosis) - BASIC METABOLIC PNL 2. 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 Anxiety - ICD9: 300.00, ICD10: F41.9 take lamictal and directed and increase the prozac Medication has been sent to the pharmacy Mikaela Chavarria MD documented in this encounter [facility] 01-31-2022 History of Present illness Narrative null ( ) Visit Summary for Taya Viveros - Gender: Female - Date of : 1980 Date: - Duration: 10 minutes Patient: Taya FigueroaNeeraj Jez Provider: Eddie Gutierrez Patient Contact Information Address [address] [place] [id number] [phone] Visit Topics Anxiety rib pain heart burn [Added By: Self - 2022-02-01] Triage Questions REQUIRED: Do you have Medicare or Medicaid Insurance?Answer [Yes] Do you have a cough, shortness of breath, difficulty breathing, fever, chills, headache, sore throat, muscles aches, acute change in smell or taste?Answer [Sore Throat] Have you been in contact with anyone confirmed with COVID 19 or suspected of having COVID 19 within the past 14 days?Answer [] Do you have any vulnerable family members in the home (, , weak immune system, lung disease, active cancer, elderly)?Answer [] Do you have any of the following: weak immune system, asthma or chronic lung disease, kidney problems and on dialysis, active cancer, diabetes or heart disease or high blood pressure, HIV or organ transplant?Answer [] Are you currently working in a healthcare facility?Answer [] What is the address where you are currently located? This is important in case of a medical emergency.Answer [[address] [id number]] Please enter a number I can contact you in the event we are disconnected.Answer [[phone]] Conversation Transcripts [Notification] You are connected with Eddie Gutierrez, Family Physician.[Notification] Taya Viveros is located in [place].[Notification] Taya Viveros has shared health history...[Notification] Eddie Gutierrez has added a diagnosis/procedure code.[Notification] Eddie Gutierrez has added a diagnosis/procedure code.[Notification] Eddie Gutirerez has added a diagnosis/procedure code. Diagnosis Anxiety disorder, unspecified Value: F41.9 Code: ICD-10-CM Gastro-esophageal reflux disease without esophagitis Value: K21.9 Code: ICD-10-CM Procedures Value: [id number] Code: CPT-4 OL DIG E/M SVC 11-20 MIN Medications Prescribed omeprazole Strength : 20 mg Frequency : Patient Instructions : 1 PO QD Refills : 0 Instructions to the Pharmacist : Eddie Gutierrez MD, JD, , . Please do not call or fax refill requests, patients must be seen to discuss any additional refills beyond what is specified. Thank you. Substitutions allowed Carafate Strength : 1 gram Frequency : Patient Instructions : 1 PO Q6hr PRN severe gastritis or reflux Refills : 0 Instructions to the Pharmacist : Eddie Gutierrez MD, JD, , . Please do not call or fax refill requests, patients must be seen to discuss any additional refills beyond what is specified. Thank you. Substitutions allowed Provider Notes Pt has hx of significant anxiety and medical anxiety, has been using multiple Rx. Visually is not toxic, not in distress, not in extremis. Does not sound toxic, in distress, or in extremis. Phonation normal, speech normal, pt is interactive and answers questions appropriately.Also c/o GERD exacerbation. Tried tums which helped some. Gen: Alert, no acute distress, appears stated age. Not in distress, not in extremis. Appears comfortable at rest. HEENT: Sclera clear, no nasal discharge, hearing grossly intactNeck: Trachea appears midline, no gross thyromegalyPulmonary: Breathing unlabored, breathing comfortably on room air, no audible wheeze or stridor, no cyanosisMusculoskeletal: No gross abnormality, no asymmetry or weakness observed Neuro: Awake, alert, answering questions appropriatelyPsych: normal speech and content, affect and mood appropriatePMH: anxietymedical anxiety GERDDVT PSH: c sectionhip surgery meds: xanax lamictal albuterololazanpine prozacbupropionNKDASH: no tob, A: anxiety, GERD exacerbation Dx: F41.9 Anxiety disorder, unspecifiedP: Rx as below, f/u with PMD at next available appt. Discussed precautions.Please see your regular doctor at least once a year for an interval check.If you do not have a primary care doctor please find one at your earliest convenience as telemedicine is not a substitute for primary care.-Please print a copy of this note and send it to your regular doctor, or take it to your next visit so it may be included in your medical record. Go to the nearest hospital emergency room if your symptoms worsen or dramatically change in nature or if you feel like you have developed an emergency condition.If a prescription was sent this visit and the pharmacy says they did not receive the prescription(s) in 2 hours then you can send me a secure message and I will call them.If I am not online you can also call the Pharmacy help line: [phone] Electronically signed by: Eddie Gutierrez( ) documented in this encounter [facility] 01-31-2022 History of Present illness Narrative Images from the original note were not included. Pt cancelled appointment prior to attempted connection. Jackie Sainz APRN.TECHNICIAN [employer] documented in this encounter [facility] 01-31-2022 Miscellaneous Notes Patient is asking for refill on the Xanax but not sure if the pharmacy will be able to give her that medication ordered on 01/11/2022 that she never picked up until today. She will call back to advise (just a fyannie for nursing) documented in this encounter [facility] 01-11-2022 Miscellaneous Notes PDMP website checked and validated. All prescriptions have been APPROPRIATELY filled. No suspicious activity was identified. 01/11/2022 by Karen Collado APRN.AIDA Patient has been identified by name and date of : Yes Patient phones for refill(s): Pending Prescriptions Disp Refills ALPRAZOLAM 1 MG TABLET 20 tablet 0 Sig: Take 1 tablet by mouth at bedtime as needed for up to 30 days. DERIK Class: C-IV LILA: No Date of last office visit in primary care: 11/19/21 Last 2 Encounter Wt Readings: Date: Wt: 12/28/2021 65.9 kg (145 lb 3.2 oz) 11/19/2021 71.2 kg (157 lb) Previous labs/tests for medication: Not applicable Please advise. Thank you. Latoya Larose LPN documented in this encounter [facility] 01-11-2022 Miscellaneous Notes Patient has been identified by name and date of : Yes Patient phones for refill(s): Pending Prescriptions Disp Refills ALBUTEROL SULFATE HFA 90 MCG/ACTUATION AEROSOL INHALER 1 Inhaler 0 Sig: Inhale 2 Puffs as instructed every 4 hours as needed for wheezing/shortness of breath. LILA: No Date of last office visit in primary care: 11/19/2021 Last 2 Encounter Wt Readings: Date: Wt: 12/28/2021 65.9 kg (145 lb 3.2 oz) 11/19/2021 71.2 kg (157 lb) Previous labs/tests for medication: Not applicable Please advise. Thank you. Latoya Larose LPN documented in this encounter [facility] 01-01-2022 Miscellaneous Notes Left detailed message for patient to return to ER for evaluation and treatment. Latoya Larose LPN Please let patient know that she has to go to the ER again. We unfortunately dont do direct admits. Patient calls back in to check on status of below request. Patient reports that she is really concerned and wanting to know what she should do. She reports she can't keep any fluids down and is dehydrated. Zofran, Promethazine, and Prochlorperazine have been ineffective. Patient asking to be directly admitted to [facility]. Instructed patient if she is feeling that rough and needs IV fluids that ED evaluation should be completed and they would determine next steps as provider hasn't evaluated patient since symptoms developed. Patient asking if provider could call over to the hospital and give recommendation for treatment. Patient reports there was something that she received IV that was helpful. Instructed patient to seek ER treatment for IV medication and fluids. Patient wanting provider recommendation and asking for call back today at [phone]. Ej Esquivel RN Patient calling she was in [facility] ER on 12/28 and again 12/31 she has been vomiting. She was given IV fluids both times. She said lab work was done but she was not COVID or influenza tested. ER did not tell her much of anything. Patient was given rx for Promethazine 25 mg tablets every 6 hours and suppositories and Prochlorperazine 10 mg one every 6 hours. Patient said nothing is working. Patient was asking for appt to ask what does PCP want her to do? She uses [facility] for her pharmacy. she does not know if you want to change the medication? She said she is not having any diarrhea. She can not keep anything down and is dehydrated again. Please advise documented in this encounter [facility] 12-28-2021 History of Present illness Narrative Subjective HPI Taya Viveros is a 41 year old female who presents with nausea and vomiting x 2 days. States she has been unable to keep any food or fluids down for 2 days. Today she started feeling lightheaded and weak. Denies fever, chest pain, cough, associated URI symptoms. Her son had diarrhea 2 weeks ago. She has taken Pepto Bismol, Pepcid AC, and Tums. None of these have helped. Review of Systems Constitutional: Negative for chills and fever. HENT: Negative for congestion and sore throat. Respiratory: Negative for cough. Cardiovascular: Negative. Gastrointestinal: Positive for nausea and vomiting. Negative for abdominal pain and diarrhea. Musculoskeletal: Negative for myalgias. BP 120/64 Pulse 80 Temp 37.2 C (98.9 F) (Tympanic) Resp 18 Wt 65.9 kg (145 lb 3.2 oz) LMP 04/13/2018 (Approximate) SpO2 99% BMI 25.72 kg/m PAST MEDICAL HISTORY Diagnosis Date Dysthymic disorder Depression (non-psychotic) Fracture pelvis Pulmonary embolism (HCC) 2004 on depoprovera PAST SURGICAL HISTORY Procedure Laterality Date ANESTH, SECTION DELIVERY ONLY 1999, , ,10/29/11 PAST SURGICAL HISTORY OF PLATES AND PINS PLACED IN LEFT HIP ALLERGIES Patient has no known allergies. MEDICATIONS albuterol HFA (VENTOLIN HFA) 90 mcg/actuation inhaler Inhale 2 Puffs as instructed every 4 hours as needed for wheezing/shortness of breath. ALPRAZolam (XANAX) 1 mg tablet Take 1 tablet by mouth at bedtime as needed for up to 30 days. FLUoxetine (PROZAC) 20 mg capsule Take 1 capsule by mouth once daily. buPROPion SR (WELLBUTRIN SR) 150 mg 12 hr tablet Take 1 tablet by mouth twice daily. FAMILY HISTORY Problem Relation Age of Onset Arthritis Paternal Grandmother Breast Cancer Paternal Grandmother Arthritis Paternal Grandfather Heart Paternal Grandfather Heart Paternal Uncle P UNCLE X 4 WITH TX Social History Tobacco Use Smoking status: Former Smoker Years: 12.00 Smokeless tobacco: Never Used Tobacco comment: Pt is using E-cigarettes Substance Use Topics Alcohol use: No Drug use: No Objective Physical Exam Vitals and nursing note reviewed. Constitutional: Appearance: She is ill-appearing. Cardiovascular: Rate and Rhythm: Normal rate and regular rhythm. Heart sounds: Normal heart sounds. Pulmonary: Effort: Pulmonary effort is normal. No respiratory distress. Breath sounds: Normal breath sounds. No wheezing or rales. Abdominal: General: Bowel sounds are decreased. There is no distension. Palpations: Abdomen is soft. There is no mass. Tenderness: There is no abdominal tenderness. There is no guarding. ASSESSMENT/PLAN: 1. Nausea and vomiting, unspecified vomiting type - ICD9: 787.01, ICD10: R11.2 - ONDANSETRON 4 MG DISINTEGRATING TABLET - I recommend evaluation in the emergency room since you have been unable to keep any food or fluids down for 2 days. Zofran given here per patient request. - Follow-up with your PCP in 3-5 days if symptoms have not improved or sooner if symptoms worsen - Discussed red flags and need for immediate medical evaluation if any occur. - Discussed supportive care treatment with fluids, rest and analgesia. - Discussed expected course of illness Shayy Zapata APRN.CNP documented in this encounter [facility] 12-28-2021 Instructions Shayy Zapata APRN.CNP - 12/28/2021 6:25 PM EDT ASSESSMENT/PLAN: 1. Nausea and vomiting, unspecified vomiting type - ICD9: 787.01, ICD10: R11.2 - ONDANSETRON 4 MG DISINTEGRATING TABLET - I recommend evaluation in the emergency room since you have been unable to keep any food or fluids down for 2 days. Zofran given here per patient request. - Follow-up with your PCP in 3-5 days if symptoms have not improved or sooner if symptoms worsen - Discussed red flags and need for immediate medical evaluation if any occur. - Discussed supportive care treatment with fluids, rest and analgesia. - Discussed expected course of illness Shayy Zapata APRN.AIDA documented in this encounter [facility] 12-17-2021 Miscellaneous Notes Patient has been identified by name and date of : Yes Patient phones for refill(s): Pending Prescriptions Disp Refills ALBUTEROL SULFATE HFA 90 MCG/ACTUATION AEROSOL INHALER 1 Inhaler 0 Sig: Inhale 2 Puffs as instructed every 4 hours as needed for wheezing/shortness of breath. LILA: No Date of last office visit in primary care: 11/19/2021 Last 2 Encounter Wt Readings: Date: Wt: 11/19/2021 71.2 kg (157 lb) 05/12/2021 65 kg (143 lb 4.8 oz) Previous labs/tests for medication: Not applicable Please advise. Thank you. Latoya Larose LPN documented in this encounter [facility] 11-03-2014 History of Past i llness Narrative Problem Noted Date Resolved Date History of depression 11/03/2014 11/03/2014 documented as of this encounter (statuses as of 12/13/2021) [facility] History of Past illness Narrative* Problem Noted Date Resolved Date History of depression 11/03/2014 11/03/2014 documented as of this encounter (statuses as of 12/17/2021) [facility] History of Past illness Narrative* Problem Noted Date Resolved Date History of depression 11/03/2014 11/03/2014 documented as of this encounter (statuses as of 12/28/2021) [facility] History of Past illness Narrative* Problem Noted Date Resolved Date History of depression 11/03/2014 11/03/2014 documented as of this encounter (statuses as of 01/08/2022) [facility] History of Past illness Narrative* Problem Noted Date Resolved Date History of depression 11/03/2014 11/03/2014 documented as of this encounter (statuses as of 01/11/2022) [address] History of Past illness Narrative* Problem Noted Date Resolved Date History of depression 11/03/2014 11/03/2014 documented as of this encounter (statuses as of 01/17/2022) [address]2015 History of Past illness Narrative* Problem Noted Date Resolved Date History of depression 11/03/2014 11/03/2014 documented as of this encounter (statuses as of 01/31/2022) [address] History of Past illness Narrative* Problem Noted Date Resolved Date History of depression 11/03/2014 11/03/2014 documented as of this encounter (statuses as of 02/01/2022) [address]2015 History of Past illness Narrative* Problem Noted Date Resolved Date History of depression 11/03/2014 11/03/2014 documented as of this encounter (statuses as of 02/02/2022) [address]2015 History of Past illness Narrative* Problem Noted Date Resolved Date History of depression 11/03/2014 11/03/2014 documented as of this encounter (statuses as of 03/13/2022) [address]26-2015 History of Past illness Narrative* Problem Noted Date Resolved Date History of depression 11/03/2014 11/03/2014 documented as of this encounter (statuses as of 03/28/2022) [address]26-2015 History of Past illness Narrative* Problem Noted Date Resolved Date History of depression 11/03/2014 11/03/2014 documented as of this encounter (statuses as of 04/25/2022) [address]26-2015 History of Past illness Narrative* Problem Noted Date Resolved Date History of depression 11/03/2014 11/03/2014 documented as of this encounter (statuses as of 06/03/2022) [address]26-2015 History of Past illness Narrative* Problem Noted Date Resolved Date History of depression 11/03/2014 11/03/2014 documented as of this encounter (statuses as of 06/07/2022) [address]26-2015 History of Past illness Narrative* Problem Noted Date Resolved Date History of depression 11/03/2014 11/03/2014 documented as of this encounter (statuses as of 06/17/2022) [address]26-2015 History of Past illness Narrative* Problem Noted Date Resolved Date History of depression 11/03/2014 11/03/2014 documented as of this encounter (statuses as of 07/11/2022) [address]26[address]2015 History of Past illness Narrative* Problem Noted Date Resolved Date History of depression 11/03/2014 11/03/2014 documented as of this encounter (statuses as of 08/15/2022) [address]26[address]2015 History of Past illness Narrative* Problem Noted Date Resolved Date History of depression 11/03/2014 11/03/2014 documented as of this encounter (statuses as of 08/15/2022) [address]26[address]2015 History of Past illness Narrative* Problem Noted Date Resolved Date History of depression 11/03/2014 11/03/2014 documented as of this encounter (statuses as of 08/26/2022) [address]2015 History of Past illness Narrative* Problem Noted Date Resolved Date History of depression 11/03/2014 11/03/2014 documented as of this encounter (statuses as of 08/29/2022) [address]26[address]2015 History of Past illness Narrative* Problem Noted Date Resolved Date History of depression 11/03/2014 11/03/2014 documented as of this encounter (statuses as of 11/05/2022) [address]26[address]2015 History of Past illness Narrative* Problem Noted Date Resolved Date History of depression 11/03/2014 11/03/2014 documented as of this encounter (statuses as of 11/08/2022) [address]26[address]2015 History of Past illness Narrative* Problem Noted Date Resolved Date History of depression 11/03/2014 11/03/2014 documented as of this encounter (statuses as of 11/08/2022) [address]2015 History of Past illness Narrative* Problem Noted Date Resolved Date History of depression 11/03/2014 11/03/2014 documented as of this encounter (statuses as of 11/12/2022) [address]2015 History of Past illness Narrative* Problem Noted Date Resolved Date History of depression 11/03/2014 11/03/2014 documented as of this encounter (statuses as of 11/15/2022) [address]26[address]2015 History of Past illness Narrative* Problem Noted Date Resolved Date History of depression 11/03/2014 11/03/2014 documented as of this encounter (statuses as of 11/26/2022) [facility] History of Past illness Narrative* Problem Noted Date Resolved Date History of depression 11/03/2014 11/03/2014 documented as of this encounter (statuses as of 12/03/2022) [facility] History of Past illness Narrative* Problem Noted Date Resolved Date History of depression 11/03/2014 11/03/2014 documented as of this encounter (statuses as of 12/13/2022) [facility] note* Diagnosis Deep vein thrombosis (DVT) of proximal lower extremity, unspecified chronicity, unspecified laterality (HCC)- Primary documented in this encounter [facility] note* Diagnosis Mild intermittent asthma without complication Unspecified asthma documented in this encounter [facility] note* Diagnosis Nausea and vomiting, unspecified vomiting type- Primary documented in this encounter [facility] noteNo assessment information availableWDunlap Memorial [facility] Work Phone: evaluation note* Diagnosis Mild intermittent asthma without complication Unspecified asthma documented in this encounter [facility] note* Diagnosis Anxiety Anxiety state, unspecified documented in this encounter [facility] note* Diagnosis Anxiety Anxiety state, unspecified documented in this encounter [facility] note* Diagnosis Treatment not available- Primary Procedure not carried out for other reasons documented in this encounter [facility] note* Diagnosis Treatment not available- Primary Procedure not carried out for other reasons documented in this encounter [facility] note* Diagnosis Onset Date Resolution Status Abdominal pain, acute acute Acute pancreatitis acute Gallbladder sludge acute [facility] Work Phone: Evaluation note* Diagnosis Onset Date Resolution Status Abdominal pain, acute acute Acute gallstone pancreatitis acute Acute pancreatitis acute Gallbladder sludge acute Status post laparoscopic cholecystectomy [facility] Work Phone: evaluation note* Diagnosis Hypokalemia- Primary Hypopotassemia Cyclothymia Cyclothymic disorder Anxiety Anxiety state, unspecified documented in this encounter [facility] note* Diagnosis Onset Date Resolution Status Status post laparoscopic cholecystectomy acute Abdominal pain, acute resolv ed Acute gallstone pancreatitis resolved Acute pancreatitis resolved Gallbladder sludge resolved Status post laparoscopic cholecystectomy acute [facility] Work Phone: Evaluation note* Diagnosis Cyclothymia- Primary Cyclothymic disorder Need for influenza vaccination Need for prophylactic vaccination and inoculation against influenza Special screening examination for viral disease Special screening examination for unspecified viral disease Encounter for gynecological examination without abnormal finding Routine gynecological examination Insomnia, unspecified type Anxiety Anxiety state, unspecified Weight gain Abnormal weight gain Vitamin D deficiency Unspecified vitamin D deficiency Hypothyroidism, unspecified type [facility]* Diagnosis Mild intermittent asthma without complication Unspecified asthma [facility]* Diagnosis Encounter for screening mammogram for breast cancer documented [facility]* Diagnosis Nasal mass- Primary Swelling, mass, or lump in head and neck documented [facility] this [facility]* Diagnosis Mild intermittent asthma without complication Unspecified asthma [facility]* Diagnosis Special screening examination for viral disease- Primary Special screening examination for unspecified viral disease Abnormal thyroid function test Nonspecific abnormal results of thyroid function study Screening for lipid disorders Vitamin D deficiency Unspecified vitamin D deficiency [facility]* Diagnosis Moderate episode of recurrent major depressive disorder (HCC)- Primary Mood disorder (HCC) Unspecified episodic mood disorder Attention deficit hyperactivity disorder (ADHD), unspecified ADHD type Insomnia, unspecified type documented [facility] this [facility]* Diagnosis Nasal discomfort- Primary Other diseases of nasal cavity and sinuses [facility] Diagnosis Hypothyroidism, unspecified type- Primary Vitamin D deficiency Unspecified vitamin D deficiency [facility]* Diagnosis Hypothyroidism, unspecified type documented in this encounter [facility] note* Diagnosis Vitamin D deficiency Unspecified vitamin D deficiency [facility] Diagnosis Cystitis- Primary Cystitis, unspecified Encounter for screening examination for sexually transmitted disease documented [facility] this [facility]* Diagnosis Hypothyroidism, unspecified type documented in this encounter [facility] note* Diagnosis Depression- Primary Depressive disorder, not elsewhere classified Anxiety Anxiety state, unspecified Anxiety- Primary Anxiety state, unspecified Encounter for screening mamm[facility] for breast cancer [facility] Depression- Primary Depressive disorder, not elsewhere classified Anxiety Anxiety state, unspecified Anxiety- Primary Anxiety state, unspecified Hypothyroidism, unspecified type- Primary Other fatigue Dysuria Anxiety Anxiety state, unspecified Recurrent major depressive disorder, in partial remission Vitamin D deficiency Unspecified vitamin D deficiency Annual physical exam Routine general medical examination at a health care facility documented in this encounter [facility] note* Diagnosis Depression- Primary Depressive disorder, not elsewhere classified Anxiety Anxiety state, unspecified Anxiety- Primary Anxiety state, unspecified Chronic bilateral low back pain, unspecified whether sciatica present- Primary Pain of left lower extremity Anxiety Anxiety state, unspecified Elevated liver enzymes Other nonspecific abnormal serum enzyme levels Hypothyroidism, unspecified type STD exposure Mild intermittent asthma without complication (HCC) Unspecified asthma documented in this encounter [facility] note* Diagnosis Depression- Primary Depressive disorder, not elsewhere classified Anxiety Anxiety state, unspecified Anxiety- Primary Anxiety state, unspecified Vitamin D deficiency Unspecified vitamin D deficiency [facility] Additional Instructions Your urine appeared to possibly be infected, we sent it for a culture, take the antibiotics and follow-up with your doctor for the results and reevaluation.[facility] Work Phone: Hospital Discharge instructions Additional Instructions Is important that you complete the course of antibiotics prescribed as you did have a urinary tract infection at your last ER visit. If you cannot keep the medicines down this time you will need to be admitted to the hospital. Please return if you feel like you are worsening. Make sure you are drinking lots of fluids.[facility] Work Phone: Hospital Discharge instructions Additional Instructions Try the Reglan instead of the Compazine or Phenergan. Do not take them together. [facility] Work Phone: [facility] Dis[facility] instructionsWDunlap [facility] Work Phone: [facility] Dis[facility] instructionsWDunlap [facility] Work Phone: Reason for referral (narrative)* Diagnostic Procedure Only (Routine) - Pending Review Specialty Diagnoses / Procedures Referred By Contkelly t Referred To Contact [facility] Diagnoses Encounter for screening mammogram for breast cancer Procedures JUDD SCREENING SCREENING MAMMOGRAPHY BI 2-VIEW BREAST INC CAD Mikaela Chavarria MD [address] [place] [address] [facility] [address] [place] [address] Referral ID Status Reason Start Date Expiration Date Visits Requested Visits Authorized [id number] Pending Review Auto-Generat ed Referral 2 09/06/2023 1 [facility] Diagnostic Procedure Only (Routine) - New Request Specialty Diagnoses / Procedures Referred By Contac t Referred To Contact [facility] Diagnoses Encounter for screening mammogram for breast cancer Procedures JUDD SCREENING W YUE SCREENING DIGITAL BREAST TOMOSYNTHESIS BI SCREENING MAMMOGRAPHY BI 2-VIEW BREAST INC CAD Mikaela Chavarria MD [address] [place] [address] [facility] [address] [facility] [place] [address] Referral ID Status Reason Start Date Expiration Date Visits Requested Visits Authorized [id number] New Request Auto-Generat ed Referral 4 08/06/2025 1 1 [facility] Summary Purpose Family History Relationship Condition Age at Onset Recorded Date/T burak father Cardiac disease Unknown mother Cerebrovascular accident (CVA) Unknown Advance Directives Documents on File Type Date Recorded Patient Dynamo Tender Expl anation Advance Directive(s) 05/12/2021 1:53 AM Advance Directive Response Recorded Date/ Time Living Will No December 28, 2021 6 :47pm Power of Pre School Teacher No December 28, 2021 6:47pm Advance Directive Response Recorded Date/ Time Living Will No December 31, 2021 9 :01am Power of Pre School Teacher No December 31, 2021 9:01am Advance Directive Response Recorded Date/ Time Living Will No January 05, 2022 9 :40pm Power of Pre School Teacher No January 05, 2022 9:40pm Advance Directive Response Recorded Date/ Time Living Will No March 05, 2022 5:50pm Power of Pre School Teacher No March 05 5:50pm Advance Directive Response Recorded Date/ Time Living Will No March 05, 2022 10:16pm Power of Pre School Teacher No March 05 2 10:16pm Advance Directive Response Recorded Date/ Time Living Will No April 02 2 3:34pm Power of Pre School Teacher No April 02 022 3:34pm Medications Administered Section Inactive Administered Medications - up to 3 most recent administrations Medication Order MAR Action Action Date Dose Rate Site ondansetron orally disintegrating 4 mg tab(s) (ZOFRAN ODT) 4 mg, ORAL, NOW, 1 dose, On Fri12/28/21 at 1830, Place tablet on tongue and allow to dissolve; do not chew. Open packaging using dry hands; do not push tablet through packaging. Given 12/28/2021 6:38 PM EDT 4 mg Oral Chief Complaint and Reason for Visit Chief Complaint ABD PAIN Chief Complaint ABD PAIN N/V Chief Complaint ABD PAIN N/V nausea/ vomiting Chief Complaint ABD PAIN N/V nausea/ vomiting ACUTE PANCREATITIS Reason for Visit Abdominal pain, acut e Acute pancreatitis Gallbladder sludge Chief Complaint ABD PAIN N/V nausea/ vomiting ACUTE PANCREATITIS ACUTE PANCREATITIS ACUTE PANCREATITIS ACUTE PANCREATITIS ACUTE PANCREATITIS ACUTE PANCREATITIS ACUTE PANCREATITIS ACUTE PANCREATITIS ACUTE PANCREATITIS ACUTE PANCREATITIS Reason for Visit Abdominal pain, acut e Acute gallstone pancreatitis Acute pancreatitis Gallbladder sludge Status post laparoscopic cholecystectomy Chief Complaint ABD PAIN N/V nausea/ vomiting ACUTE PANCREATITIS ACUTE PANCREATITIS ACUTE PANCREATITIS ACUTE PANCREATITIS ACUTE PANCREATITIS ACUTE PANCREATITIS ACUTE PANCREATITIS ACUTE PANCREATITIS ACUTE PANCREATITIS ACUTE PANCREATITIS ACUTE PANCREATITIS ACUTE PANCREATITIS F/U Lap V[facility] INT LABS ABD PAIN Reason for Visit Status post laparosc opic cholecystectomy Abdominal pain, acute Acute gallstone pancreatitis Acute pancreatitis Gallbladder sludge Status post laparoscopic cholecystectomy Reason for Referral Specialty Diagnoses / Procedures Referred By Chiquis fortune Referred To Contact Gynecology Diagnoses Encounter for gynecological examination without abnormal finding Procedures CONSULT TO GYNECOLOGY OFFICE/OUTPATIENT [facility] 60-74 MINUTES Mikaela Chavarria MD [address] [place] [address] Referral ID Status Reason Start Date Expiration Date Visits Requested Visits Authorized [id number] Pending Review PCP Requested Referral Auto-Generate d Referral 2 06/03/2023 1 1 Specialty Diagnoses / Procedures Referred By Chiquis fortune Referred To Contact Ent - Otolaryngology Diagnoses Nasal mass Procedures CONSULT TO ENT OFFICE/OUTPATIENT [facility] 60-74 MINUTES Mikaela Chavarria MD [address] [place] [address] Referral ID Status Reason Start Date Expiration Date Visits Requested Visits Authorized [id number] Pending Review PCP Requested Referral 08/26/2022 08/26/2023 1 1 Additional Source Comments INFORMATION SOURCE (unrecogn ized section and content) DATE CREATED AUTHOR 01/25/2020 [facility] DATE CREATED AUTHOR AUTHOR'S ORGANIZ ATION 05/15/2021 [facility] DATE CREATED AUTHOR AUTHOR'S ORGANIZ ATION 05/20/2021 [facility] DATE CREATED AUTHOR AUTHOR'S ORGANIZ ATION 07/10/2024 [facility] DATE CREATED AUTHOR AUTHOR'S ORGANIZ ATION 03/04/2025 [facility] Source Comments (unrecognize d section and content) In the event this informatio n is protected by the Federal Confidentiality of Alcohol and Drug Abuse Patient Records regulations: The Federal rules restrict any use of the information to criminally investigate or prosecute any alcohol or drug abuse patient.[facility] the event this information is protected by the Federal Confidentiality of Alcohol and Drug Abuse Patient Records regulations: The Federal rules restrict any use of the information to criminally investigate or prosecute any alcohol or drug abuse patient.[facility] the event this information is protected by the Federal Confidentiality of Alcohol and Drug Abuse Patient Records regulations: The Federal rules restrict any use of the information to criminally investigate or prosecute any alcohol or drug abuse patient.[facility]In the event this information is protected by the Federal Confidentiality of Alcohol and Drug Abuse Patient Records regulations: The Federal rules restrict any use of the information to criminally investigate or prosecute any alcohol or drug abuse patient.[facility]In the event this information is protected by the Federal Confidentiality of Alcohol and Drug Abuse Patient Records regulations: The Federal rules restrict any use of the information to criminally investigate or prosecute any alcohol or drug abuse patient.[facility] the event this information is protected by the Federal Confidentiality of Alcohol and Drug Abuse Patient Records regulations: The Federal rules restrict any use of the information to criminally investigate or prosecute any alcohol or drug abuse patient.[facility] the event this information is protected by the Federal Confidentiality of Alcohol and Drug Abuse Patient Records regulations: The Federal rules restrict any use of the information to criminally investigate or prosecute any alcohol or drug abuse patient.[facility]In the event this information is protected by the Federal Confidentiality of Alcohol and Drug Abuse Patient Records regulations: The Federal rules restrict any use of the information to criminally investigate or prosecute any alcohol or drug abuse patient.[facility] the event this information is protected by the Federal Confidentiality of Alcohol and Drug Abuse Patient Records regulations: The Federal rules restrict any use of the information to criminally investigate or prosecute any alcohol or drug abuse patient.[facility] the event this information is protected by the Federal Confidentiality of Alcohol and Drug Abuse Patient Records regulations: The Federal rules restrict any use of the information to criminally investigate or prosecute any alcohol or drug abuse patient.[facility]In the event this information is protected by the Federal Confidentiality of Alcohol and Drug Abuse Patient Records regulations: The Federal rules restrict any use of the information to criminally investigate or prosecute any alcohol or drug abuse patient.[facility] the event this information is protected by the Federal Confidentiality of Alcohol and Drug Abuse Patient Records regulations: The Federal rules restrict any use of the information to criminally investigate or prosecute any alcohol or drug abuse patient.[facility] the event this information is protected by the Federal Confidentiality of Alcohol and Drug Abuse Patient Records regulations: The Federal rules restrict any use of the information to criminally investigate or prosecute any alcohol or drug abuse patient.[facility] the event this information is protected by the Federal Confidentiality of Alcohol and Drug Abuse Patient Records regulations: The Federal rules restrict any use of the information to criminally investigate or prosecute any alcohol or drug abuse patient.[facility]In the event this information is protected by the Federal Confidentiality of Alcohol and Drug Abuse Patient Records regulations: The Federal rules restrict any use of the information to criminally investigate or prosecute any alcohol or drug abuse patient.[facility]In the event this information is protected by the Federal Confidentiality of Alcohol and Drug Abuse Patient Records regulations: The Federal rules restrict any use of the information to criminally investigate or prosecute any alcohol or drug abuse patient.[facility] the event this information is protected by the Federal Confidentiality of Alcohol and Drug Abuse Patient Records regulations: The Federal rules restrict any use of the information to criminally investigate or prosecute any alcohol or drug abuse patient.[facility]In the event this information is protected by the Federal Confidentiality of Alcohol and Drug Abuse Patient Records regulations: The Federal rules restrict any use of the information to criminally investigate or prosecute any alcohol or drug abuse patient.[facility] HospitalIn the event this information is protected by the Federal Confidentiality of Alcohol and Drug Abuse Patient Records regulations: The Federal rules restrict any use of the information to criminally investigate or prosecute any alcohol or drug abuse patient.[facility] HospitalIn the event this information is protected by the Federal Confidentiality of Alcohol and Drug Abuse Patient Records regulations: The Federal rules restrict any use of the information to criminally investigate or prosecute any alcohol or drug abuse patient.[facility] HospitalIn the event this information is protected by the Federal Confidentiality of Alcohol and Drug Abuse Patient Records regulations: The Federal rules restrict any use of the information to criminally investigate or prosecute any alcohol or drug abuse patient.[facility] HospitalIn the event this information is protected by the Federal Confidentiality of Alcohol and Drug Abuse Patient Records regulations: The Federal rules restrict any use of the information to criminally investigate or prosecute any alcohol or drug abuse patient.[facility] HospitalIn the event this information is protected by the Federal Confidentiality of Alcohol and Drug Abuse Patient Records regulations: The Federal rules restrict any use of the information to criminally investigate or prosecute any alcohol or drug abuse patient.[facility]In the event this information is protected by the Federal Confidentiality of Alcohol and Drug Abuse Patient Records regulations: The Federal rules restrict any use of the information to criminally investigate or prosecute any alcohol or drug abuse patient.[facility] HospitalIn the event this information is protected by the Federal Confidentiality of Alcohol and Drug Abuse Patient Records regulations: The Federal rules restrict any use of the information to criminally investigate or prosecute any alcohol or drug abuse patient.[facility] [facility] HospitalIn the event this information is protected by the Federal Confidentiality of Alcohol and Drug Abuse Patient Records regulations: The Federal rules restrict any use of the information to criminally investigate or prosecute any alcohol or drug abuse patient.[facility] the event this information is protected by the Federal Confidentiality of Alcohol and Drug Abuse Patient Records regulations: The Federal rules restrict any use of the information to criminally investigate or prosecute any alcohol or drug abuse patient.[facility] the event this information is protected by the Federal Confidentiality of Alcohol and Drug Abuse Patient Records regulations: The Federal rules restrict any use of the information to criminally investigate or prosecute any alcohol or drug abuse patient.[facility] the event this information is protected by the Federal Confidentiality of Alcohol and Drug Abuse Patient Records regulations: The Federal rules restrict any use of the information to criminally investigate or prosecute any alcohol or drug abuse patient.[facility]In the event this information is protected by the Federal Confidentiality of Alcohol and Drug Abuse Patient Records regulations: The Federal rules restrict any use of the information to criminally investigate or prosecute any alcohol or drug abuse patient.[facility]In the event this information is protected by the Federal Confidentiality of Alcohol and Drug Abuse Patient Records regulations: The Federal rules restrict any use of the information to criminally investigate or prosecute any alcohol or drug abuse patient.[facility]In the event this information is protected by the Federal Confidentiality of Alcohol and Drug Abuse Patient Records regulations: The Federal rules restrict any use of the information to criminally investigate or prosecute any alcohol or drug abuse patient.[facility]In the event this information is protected by the Federal Confidentiality of Alcohol and Drug Abuse Patient Records regulations: The Federal rules restrict any use of the information to criminally investigate or prosecute any alcohol or drug abuse patient.[facility] the event this information is protected by the Federal Confidentiality of Alcohol and Drug Abuse Patient Records regulations: The Federal rules restrict any use of the information to criminally investigate or prosecute any alcohol or drug abuse patient.[facility]In the event this information is protected by the Federal Confidentiality of Alcohol and Drug Abuse Patient Records regulations: The Federal rules restrict any use of the information to criminally investigate or prosecute any alcohol or drug abuse patient.[facility]In the event this information is protected by the Federal Confidentiality of Alcohol and Drug Abuse Patient Records regulations: The Federal rules restrict any use of the information to criminally investigate or prosecute any alcohol or drug abuse patient.[facility] HospitalIn the event this information is protected by the Federal Confidentiality of Alcohol and Drug Abuse Patient Records regulations: The Federal rules restrict any use of the information to criminally investigate or prosecute any alcohol or drug abuse patient.[facility]In the event this information is protected by the Federal Confidentiality of Alcohol and Drug Abuse Patient Records regulations: The Federal rules restrict any use of the information to criminally investigate or prosecute any alcohol or drug abuse patient.[facility]In the event this information is protected by the Federal Confidentiality of Alcohol and Drug Abuse Patient Records regulations: The Federal rules restrict any use of the information to criminally investigate or prosecute any alcohol or drug abuse patient.[facility] Care Teams (unrecognized sec tion and content) Full Fashioned Garment Knitter Relationship Specialty Start Date End Date Mikaela Chavarria MD [address] [place] [address] PCP - General Internal Medicine 03/06/15 Full Fashioned Garment Knitter Relationship Specialty Start Date End Date Mikaela Chavarria MD [address] [place] [address] PCP - General Internal Medicine 03/06/15 Full Fashioned Garment Knitter Relationship Specialty Start Date End Date Mikaela Chavarria MD [address] [place] [address] PCP - General Internal Medicine 03/06/15 Full Fashioned Garment Knitter Relationship Specialty Start Date End Date Mikaela Chavarria MD [address] [place] [address] PCP - General Internal Medicine 03/06/15 Full Fashioned Garment Knitter Relationship Specialty Start Date End Date Mikaela Chavarria MD [address] [place] [address] PCP - General Internal Medicine 03/06/15 Full Fashioned Garment Knitter Relationship Specialty Start Date End Date Mikaela Chavarria MD [address] [place] [address] PCP - General Internal Medicine 03/06/15 Full Fashioned Garment Knitter Relationship Specialty Start Date End Date Mikaela Chavarria MD [address] [facility] [address] PCP - General Internal Medicine 03/06/15 Full Fashioned Garment Knitter Relationship Specialty Start Date End Date Mikaela Chavarria MD [address] [facility] [address] PCP - General Internal Medicine 03/06/15 Full Fashioned Garment Knitter Relationship Specialty Start Date End Date Mikaela Chavarria MD [address] [facility] [address] PCP - General Internal Medicine 03/06/15 Full Fashioned Garment Knitter Relationship Specialty Start Date End Date Mikaela Chavarria MD [address] [facility] [address] PCP - General Internal Medicine 03/06/15 Full Fashioned Garment Knitter Relationship Specialty Start Date End Date Mikaela Chavarria MD [address] [facility] [place] [address] PCP - General Internal Medicine 03/06/15 Full Fashioned Garment Knitter Relationship Specialty Start Date End Date Mikaela Chavarria MD [address] [facility] [place] [address] PCP - General Internal Medicine 03/06/15 Full Fashioned Garment Knitter Relationship Specialty Start Date End Date Mikaela Chavarria MD [address] [place] [address] PCP - General Internal Medicine 03/06/15 Full Fashioned Garment Knitter Relationship Specialty Start Date End Date Mikaela Chavarria MD [address] [facility] [place] [address] PCP - General Internal Medicine 03/06/15 Full Fashioned Garment Knitter Relationship Specialty Start Date End Date Mikaela Chavarria MD [address] [facility] [place] [address] PCP - General Internal Medicine 03/06/15 Full Fashioned Garment Knitter Relationship Specialty Start Date End Date Mikaela Chavarria MD [address] [facility] [place] [address] PCP - General Internal Medicine 03/06/15 Full Fashioned Garment Knitter Relationship Specialty Start Date End Date Mikaela Chavarria MD [address] [facility] [place] [address] PCP - General Internal Medicine 03/06/15 Full Fashioned Garment Knitter Relationship Specialty Start Date End Date Mikaela Chavarria MD [address] [facility] [place] [address] PCP - General Internal Medicine 03/06/15 Full Fashioned Garment Knitter Relationship Specialty Start Date End Date Mikaela Chavarria MD [address] [facility] [place] [address] PCP - General Internal Medicine 03/06/15 Full Fashioned Garment Knitter Relationship Specialty Start Date End Date Mikaela Chavarria MD [address] [facility] [place] [address] PCP - General Internal Medicine 03/06/15 Full Fashioned Garment Knitter Relationship Specialty Start Date End Date Mikaela Chavarria MD [address] [facility] [place] [address] PCP - General Internal Medicine 03/06/15 Karen Collado APRN.TECHNICIAN CHEMICAL CLEANING [address] [place] [address] Seo Marketing Specialist Internal Medicine 07/18/24 Full Fashioned Garment Knitter Relationship Specialty Start Date End Date Mikaela Chavarria MD [address] [place] [address] PCP - General Internal Medicine 03/06/15 Karen Collado APRN.TECHNICIAN CHEMICAL CLEANING [address] [place] [address] Seo Marketing Specialist Internal Medicine 07/18/24 Full Fashioned Garment Knitter Relationship Specialty Start Date End Date Mikaela Chavarria MD [address] [place] [address] PCP - General Internal Medicine 03/06/15 Karen Collado, FUNERAL DIRECTOR.TECHNICIAN CHEMICAL CLEANING [address] [place] [address] Seo Marketing Specialist Internal Medicine 07/18/24 Full Fashioned Garment Knitter Relationship Specialty Start Date End Date Mikaela Chavarria MD [address] [place] [address] PCP - General Internal Medicine 03/06/15 Karen Collado, FUNERAL DIRECTOR.TECHNICIAN CHEMICAL CLEANING [address] [place] [address] Seo Marketing Specialist Internal Medicine 07/18/24 Reason for Visit (unrecogniz ed section and content) Reason Onset Date Comments Refill Request 12/15/2021 Reason Comments Vomiting vomiting and lighthe aded x 2 days Specialty Diagnoses / Procedures Referred By Contkelly t Referred To Contact Internal Medicine / [facility] Diagnoses throwing up for 2 days, light headed nausea Procedures URGENT CARE Self [facility] [address] [place] [address] Referral ID Status Reason Start Date Expiration Date Visits Requested Visits Authorized [id number] Authorized Patient Cleared - Qualified 100% FAS 12/28/2021 03/28/2022 99 99 Reason Comments Patient Question Reason Onset Date Comments Refill Request 01/11/2022 Reason Comments Opened In Error Reason Comments Patient Update Reason Comments Appointment Cancelled patient cancelled appointment - see progress note; Reason Comments Appointment Cancelled Reason Comments Anxiety Specialty Diagnoses / Procedures Referred By Chiquis t Referred To Contact Internal Medicine / [facility] Diagnoses throwing up for 2 days, light headed nausea Procedures URGENT CARE Self, [facility] [address] [place] [address] Reason Comments Med Change Request Reason Comments Appointment Reason Onset Date Comments Recheck discuss meds Immunizations 06/03/2022 Flu vaccination Specialty Diagnoses / Procedures Referred By Chiquis t Referred To Contact Diagnoses VIDEO VISIT Procedures VIDEO VISIT [facility] [address] [place] [id number] [address] Referral ID Status Reason Start Date Expiration Date Visits Requested Visits Authorized [id number] Authorized Patient Cleared - Qualified 100% FAS 04/03/2022 2022 99 99 Reason Onset Date Comments Refill Request 05/25/2022 Reason Onset Date Comments Refill Request 06/13/2022 Reason Onset Date Comments Refill Request 07/10/2022 Reason Onset Date Comments Refill Request 08/10/2022 Reason Comments Follow Up growth in left sinus area x 2 months Specialty Diagnoses / Procedures Referred By Chiquis t Referred To Contact Diagnoses n/a Procedures [facility] Referral ID Status Reason Start Date Expiration Date Visits Requested Visits Authorized [id number] Authorized Patient Cleared - Qualified 100% FAS 08/23/2022 11/21/2022 99 99 Reason Comments Refill Request Reason Comments Orders Results Reason Comments Follow Up h/a's and has had a fever with body aches x 1 day took aleve this morning at 8:30a Specialty Diagnoses / Procedures Referred By Chiquis t Referred To Contact Diagnoses Consult/Test/Treat Procedures Consult/Test/Treat Mikaela Chavarria MD [address] [place] [address] [facility] Dept Referral ID Status Reason Start Date Expiration Date Visits Requested Visits Authorized [id number] Authorized Patient Cleared - Qualified 100% FAS 11/08/2022 02/06/2023 99 99 Reason Comments Behavioral Health Social Work Reason Comments Consult Nasal mass- left jason e- discomfort- sx for the last 6 months Specialty Diagnoses / Procedures Referred By Chiquis fortune Referred To Contact Ent - Otolaryngology Diagnoses Nasal mass Procedures CONSULT TO ENT OFFICE/OUTPATIENT NEW HIGH MDM 60-74 MINUTES Mikaela Chavarria MD [address] [place] [address] Referral ID Status Reason Start Date Expiration Date Visits Requested Visits Authorized [id number] Pending Review PCP Requested Referral 08/26/2022 08/26/2023 1 1 Reason Comments Results Reason Comments Urinary Problem Frequency and burnin g x 1` week Reason Onset Date Comments Refill Request 03/12/2024 Reason Comments Results BV (+), Trich (+) Reason Comments Recheck Follow up, review la bs, back and leg pain Goals (unrecognized section and content) Goals may be documented in a n alternate sectionGoals may be documented in an alternate sectionGoals may be documented in an alternate sectionGoals may be documented in an alternate section FOR RECORDS PERTAINING TO PATIENTS WHO ARE OR HAVE BEEN ENROLLED IN A CHEMICAL DEPENDENCY/SUBSTANCEABUSE PROGRAM, SOME INFORMATION MAY BE OMITTED. This clinical summary was aggregated from multiple sources. Caution should be exercised in using it in the provision of clinical care. This summary normalizes information from multiple sources, and as a consequence, information in this document may materially change the coding, format and clinical context of patient data. In addition, data may be omitted in some cases. CLINICAL DECISIONS SHOULD BE BASED ON THE PRIMARY CLINICAL RECORDS. [employer] provides no warranty or guarantee of the accuracy or completeness of information in this document.
[2025-06-25 00:22] LABS: Hematocrit 27.7 % (37-47); Hemoglobin 9.0 g/dL (12.0-15.0); Immature Granulocytes Count 0.040 X10^3/uL (0.0-0.0); Mean Corp Hgb Conc 32.5 g/dL (32-36); Mean Corpuscular Volume 97.5 fL (81-99); Mean Platelet Vol. 9.2 fl (6.2-12.0); NRBC Flagged by Analyzer 0 % (0-5); POSITIVE MORPHOLOGY YES; Platelet Count 306 K/mm3 (150-450); RBC Distribution Width CV 20.4 % (11.6-14.6); RBC Distribution Width SD 73.0 fl (35.1-43.9); Red Blood Count 2.84 M/mm3 (4.2-5.4); White Blood Count 6.8 K/mm3 (4.4-11.0)
--- NOTE | 2025-06-25 00:24 | EDS_ITS ---
HPI History of Present Illness Chief Complaint: Weakness Narrative Narrative: Patient was seen and examined after presenting to ED for generalized weakness unexplained weight loss she feels like her face is more emaciated she is also having changes in her bowel habits with it due to being more difficult to have bowel movement to more loose or liquid stool she states is there any way to check through the blood work for cancer? I had a friend who was normal eating lunch with us and then 1 day she is found to have large clots in her legs and then a week later she is from stage IV colon cancer that we knew nothing about. Patient states that she has been feeling unwell for a while now. [facility] Medical History Tobacco use Alcohol use Anxiety and depression Asthma Hx of fracture of pelvis Memo's thyroiditis Home Medications ?Medication ?Instructions ?Recorded ?Last Taken ?Type alprazolam 1 mg tablet 1 mg PO DAILY PRN Anxiety Unknown History albuterol sulfate 90 mcg/actuation 2 puff inhalation Q 4H PRN 03/05/22 Unknown History aerosol inhaler Shortness Of Breath Or Wheez ing potassium chloride 20 mEq 20 meq PO DAILY potassium #1 0 tabs 03/10/22 Unknown Rx tablet,extended release ondansetron 4 mg disintegrating 4 mg PO Q8H PRN PRN Na usea #10 tabs 06/14/24 Unknown Rx tablet ergocalciferol (vitamin D2) 1,250 1,250 mcg PO DAILY d eficency 06/25/25 Unknown History mcg (50,000 unit) capsule levothyroxine 50 mcg tablet 50 mcg PO DAILY thyroid Unknown History Allergy/AdvReac Type Severity Reaction Status Date / Time No Known Allergies Allergy Verified 06/24/25 23:33 Family History Father Heart disease Mother CVA (cerebral vascular accident) Surgical History Status post laparoscopic cholecystectomy History of pelvic surgery Hx of section H/O tubal ligation Social History household members: family and children Smoking Status: Current every day smoker tobacco type: e-cigarettes Electronic Cigarette Use: with nicotine alcohol intake: current alcohol intake frequency: 0-2 drinks per day details: Drinks 1 vodka drink 1-2 ounces up to once q HS. substance use type: does not use ROS ROS ED ROS Narrative Pertinent Positives: Feeling unwell unexplained weight loss nausea abdominal pain diarrhea Pertinent Negatives: Fevers chills chest pain pressure shortness of breath The remainder of review of systems negative unless otherwise stated in the HPI above. Systems reviewed including constitutional, psychiatric, cardiovascular, respiratory, integument, HENT, gastrointestinal. EXAM Physical Exam Narrative Exam Narrative: Patient is afebrile hemodynamically stable does not appear toxic she appears unw ell normal heart and lung sounds her abdomen is soft has diffuse tenderness but nondistended her face does appear a little sunken she has intact and equal MSPs in her extremities no lower extremity edema or calf tenderness Const Vital Signs: 06/24/25 23:32 06/25/25 00:48 06/25/25 01:32 Temperature 98.6 F Temperature Source Oral Pulse Rate 133 H 109 H Respiratory Rate 16 18 Respiratory Effort Normal Non-Labored Respiratory Pattern Normal Blood Pressure 119/76 100/62 Blood Pressure Mean 90 74 Pulse Ox 98 100 Oxygen Delivery Method Room Air Room Air 06/25/25 01:39 06/25/25 02:26 06/25/25 03:00 Temperature 98.5 F 99.1 F 99.2 F H Temperature Source Oral Oral Oral Pulse Rate 109 H 108 H 108 H Respiratory Rate 18 26 H 18 Respiratory Effort Respiratory Pattern Blood Pressure 100/62 96/67 96/53 L Blood Pressure Mean 74 76 67 Pulse Ox 100 98 99 Oxygen Delivery Method Room Air Room Air Room Air MDM MDM MDM Narrative Medical decision making narrative: Nursing notes, triage notes, available previous documentation, and vital signs were reviewed. Any discrepancies noted were addressed. Differential Diagnoses: Need to consider the possibility of malignancy or could be a viral process or some sort of underlying abdominal process could be UTI Interventions: Zofran Antibiotics Given: Vancomycin and Zosyn Fluids Given: 2 L normal saline Labs Reviewed: No leukocytosis or leukopenia hemoglobin is 9.0 platelets are 306 mildly hyponatremic at 129 hypochloremic no renal insufficiency lactic acidosis of 5.8 at the hyperbilirubinemia of 1.8 patient is not jaundice AST was 118 with an ALT of 25 alk phos was 207 initial troponin was less than 6 delta troponin being 6 lipase was 34 she is not . Patient's urine is nitrite positive with 100 leukocyte esterase but 2+ bacteria no leukocytes in the urine respiratory panel was negative Imaging Reviewed: CT of the abdomen and pelvis showing fatty hepatomegaly also diffuse uniform rectal mural thickening which could be proctitis is with her stated have a concern for rectal cancer EKG: EKG showing sinus tachycardia rate of [address] segment elevation QTc is 473 such as slightly prolonged IA intervals otherwise unremarkable. EKG interpretation is noted and agreed to in the EMR. The interpretation of this patient's EKG contributed directly to the care and management of this patient. Previous Documentation Reviewed: None available or applicable at this time. ED Course: Patient presenting with symptoms as stated above she has never had a colonoscopy she reports that she feels like her abdomen is bloated she appears like she probably has some sort of underlying process will evaluate for some intra-abdominal mass or other intra-abdominal process any abnormalities within her lab work or for UTI. Patient appears to be rather sick we are treating her for sepsis once we found out that she had a lactic acidosis of 5.8 she was made a sepsis alert she was given broad-spectrum antibiotics although she was not hypotensive given that her lactic acid was over the value of 4 patient was given an additional liter of IV fluids for a total of 2 L normal saline which is over her 30 cc/kg IV fluid bolus resuscitation for sepsis. I did discuss with hospitalist Dr. Liu who is agreeable to admission to the intensive care unit. 38 minutes of critical care time utilized in managing the patient. This is due to high probability of and deterioration of the patient based on the patient's condition and excludes any separately billable procedures. This note was made utilizing voice recognition software. All attempts were made to correct spelling or other errors prior to note completion. However, due to the fast-paced nature of emergency medicine, some errors may still be present. Lab Data Labs: Laboratory Results - last 24 hr 06/25/25 06/25/25 00:09 02:15 WBC 6.8 RBC 2.84 L Hgb 9.0 L Hct 27.7 L MCV 97.5 MCH 31.7 MCHC 32.5 RDW Std Deviation 73.0 H RDW Coeff of Micheal 20.4 H Plt Count 306 MPV 9.2 Immature Gran % (Auto) 0.600 Neut % (Auto) 76.6 H Lymph % (Auto) 14.2 L [place] % (Auto) 7.9 Eos % (Auto) 0.3 Baso % (Auto) 0.4 Absolute Neuts (auto) 5.2 Absolute Lymphs (auto) 0.97 Nucleated RBC % 0 Differential Comment SCANNED Plt Morphology Comment LARGE RBC Morphology NORM C+C Polychromasia RARE Anisocytosis RARE Sodium 129 L Potassium 4.0 Chloride 90 L Carbon Dioxide 24.7 Anion Gap 14 BUN 4 Creatinine 0.48 L Estim Creat Clear Calc 126.30 Est GFR (MDRD) Non-Af 121 BUN/Creatinine Ratio 8.8 L Glucose 219 H Lactic Acid 5.8 H* Calcium 8.6 Phosphorus 1.8 L Magnesium 2.0 Total Bilirubin 1.86 H AST 118 H ALT 25 Alkaline Phosphatase 207 H Troponin T High Sens < 6 Troponin T Hi Sens 2 Hr 6 Total Protein 6.0 Albumin 2.6 L Globulin 3.3 Albumin/Globulin Ratio 0.8 L Lipase 34 Serum , Qual NEGATIVE Urine Color Yellow Urine Clarity Sl. Cloudy Urine pH 6.5 Ur Specific [place] 1.005 Urine Protein 30 H Urine Glucose (UA) Normal Urine Ketones Negative Urine Occult Blood 25 H Urine Nitrite Positive H Urine Bilirubin 1 H Urine Urobilinogen 8 H Ur Leukocyte Esterase 100 H Urine RBC 0 SEEN Urine WBC 0-5 SEEN Ur Squamous Epith Cells 5-10 SEEN Ur Renal Epithelial Cell 0-5 SEEN Urine Bacteria 2+ Urine Mucus 0 SEEN ABG Data ABG results: ABG 06/25/25 01:24 Specimen Type ANGEL Sample Site Not entered VBG pH 7.53 H VBG pO2 41 H VBG HCO3 30 H VBG Total CO2 31 VBG O2 Sat (Calc) 82 H VBG Base Excess 7 H POC Mix VBG pCO2 Pt Tmp 35.6 L O2 Delivery Device Room Air Radiography Diagnostic Testing: Clinical Impression(s) from Imaging Studies Abdomen/Pelvis CT 06/25/25 00:00 IMPRESSION: Fatty hepatomegaly with parenchymatous liver changes. Minimal sized progression of the right adnexal cyst. Diffuse rather uniform rectal mural thickening that could represent proctitis. Stable rest of the study findings. Reading Location: [place] [id number] Discharge Plan Triage Chief Complaint: Weakness ED Provider: Christina Wray Dx/Rx/DC Orders Clinical Impression: Sepsis, Suspected malignant neoplasm, Lactic acidosis, Transaminitis, Hyperbilirubinemia, Unexplained weight loss Primary Care Provider: GRIS CARMONA
[2025-06-25 00:25] LABS: Differential Indicated SCAN CRITERIA MET
[2025-06-25] MEDS: 0.9% Normal Saline (1000mL) 1,000 ML 999 ML IV ×3 (00:25→04:41)
[2025-06-25 00:38] LABS: Lipase 34 U/L (13-75)
[2025-06-25 00:42] LABS: Alanine Aminotransfer ALT/SGPT 25 U/L (<=34); Albumin, Serum 2.6 g/dL (3.5-5.0); Alkaline Phosphatase 207 U/L (35-104); Anion Gap 14 (5-15); BUN 4 mg/dL (4-19); BUN/Creat Ratio 8.8 RATIO (10-20); Calcium,Total 8.6 mg/dL (7.6-11.0); Carbon Dioxide 24.7 mmol/L (21.0-32.0); Chloride 90 mmol/L (98-108); Estimated Creatinine Clearance 126.30 ml/min (50-250); Globulin 3.3 g/dL (2.2-4.2); Glucose 219 mg/dL (70-99); Internal QC Validated? YES +Cl - CLEAR BKGD; Potassium 4.0 mmol/L (3.3-5.1); Pregnancy, Serum, hCG Quali. NEGATIVE Negative; Record Kit Lot#, Serum Preg. 0000980607; Troponin T High Sensitivity < 6 ng/L (<=14)
[2025-06-25 00:58] LABS: AST(SGOT) 118 U/L (<=31)
[2025-06-25] MEDS: Piperacil/Tazobactam 4.5 GM in 0.9% Normal Saline (100mL MB+) 100 ML IV (01:13)
[2025-06-25] MEDS: Vancomycin HCl 1,500 MG in 0.9% Normal Saline (500mL Bag) 500 ML 250 MG IV (01:26)
[2025-06-25 01:28] LABS: SITE Not entered; VBG BASE EXCESS 7 mmol/L (-1.0-3.5); VBG PO2 41 mmHg (25-40); VBG SO2 82 % (50-70); VBG TCO2 31 mmol/L (23-33)
[2025-06-25 01:53] LABS: Anisocytosis RARE; Polychromasia RARE
[2025-06-25 01:55] LABS: Red Cell Morphology NORM C+C NORMAL (NORM C&C)
[2025-06-25 01:56] LABS: Differential Comment SCANNED
[2025-06-25 02:22] LABS: Mucous, Urine 0 SEEN /hpf (<or=2+)
[2025-06-25 02:24] LABS: Color, Urine Yellow (Yellow); Glucose, Dipstick Normal (Normal); Ketone-Dipstick Negative (Negative); Leukocyte Esterase-Dipstick 100 /ul (Negative); Nitrite-Dipstick Positive (Negative); Occult Blood-Urine 25 /ul (Negative); Protein-Dipstick 30 mg/dl (Negative); Specific Gravity, Urine 1.005 (1.002-1.030)
[2025-06-25 02:26] LABS: Urine Bilirubin Dipstick 1 mg/dL (Negative)
[2025-06-25 02:38] LABS: Troponin T High Sens 2 HR 6 ng/L (<=14)
--- NOTE | 2025-06-25 02:38 | ED.RN ---
Vancomycin and 2nd Liter of NS paused while patient went for CT scan.
[2025-06-25 02:43] LABS: Red Blood Cells-Urine 0 SEEN /hpf (0-5); Squamous Epithelial Cells - UA 5-10 SEEN /hpf (5-10)
--- NOTE | 2025-06-25 03:17 | PCM.HP.STD ---
HPI - General General Date of Admission: 06/25/25 Date of Service: 06/25/25 Chief Complaint: Weight loss, bloated sensation, fatigue, malaise HPI Narrative The patient is a 44 y/o F w/ PMHx: Anxiety and Depression, Asthma, Chronic normocytic anemia, Hx Memo's thyroiditis, Tobacco use who presents to the [facility] ED on 06/25/2025 with history of generalized weakness, fatigue, malaise, weight loss with alteration to her bowel movements noting that they have been more liquid with additionally a bloated type sensation prompting ED evaluation to be cautious. In the ED she does relate that a close friend recently had sudden diagnosis of colon cancer in the past which she is worried about having herself. Workup in the ED included T98.6, heart rate 133, BP 119/76, respiratory rate 16, 98% on room air with most recent repeat vitals T99.1 Oral, heart rate 108, BP 96/67, respiratory rate 26, 98% on room air, CBC with WBC 6.8, hemoglobin 9.0, MCV 97.5, platelets 306 without marked shift, VBG with pH 7.53, pO2 41, bicarb 30, VBG G0 2% 82% on room air, CMP with sodium 129, chloride 90, BUN/creatinine 4/0.48, GFR 121, glucose 219, lactic acid 5.8, T. bili 1.86, AST/LT 118/25, alk phos 207, troponin less than 6, lipase 34, serum negative, urinalysis noted be cloudy, specific gravity 1.005, protein 30, occult blood 25, positive nitrite, leukocyte esterase 100, 2+ urine bacteria, urine culture pending per ED, blood culture pending per ED, CT abdomen and pelvis with fatty hepatomegaly with parenchymatous liver changes, minimal size progression of the right adnexal cyst, diffuse rather uniform rectal mural thickening possibly proctitis but uncertain. In the ED patient ministered 2 L normal saline, Zofran 4 mg IV x 1, Zosyn 4.5 g IV x 1, vancomycin 1500 mg IV x 1. [facility] Medical History Tobacco use Alcohol use Anxiety and depression Asthma Hx of fracture of pelvis Memo's thyroiditis Home Medications ?Medication ?Instructions ?Recorded ?Last Taken ?Type alprazolam 1 mg tablet 1 mg PO DAILY PRN Anxiety 07/04/21 Unknown History albuterol sulfate 90 mcg/actuation 2 puff inhalation Q4H PRN 03/05/22 Unknown History aerosol inhaler Shortness Of Breath Or Wheezing potassium chloride 20 mEq 20 meq PO DAILY potassium #10 tabs 03/10/22 Unknown Rx tablet,extended release ondansetron 4 mg disintegrating 4 mg PO Q8H PRN PRN Nausea #10 tabs 06/14/24 Unknown Rx tablet ergocalciferol (vitamin D2) 1,250 1,250 mcg PO DAILY deficency 06/25/25 Unknown History mcg (50,000 unit) capsule levothyroxine 50 mcg tablet 50 mcg PO DAILY thyroid 06/25/25 Unknown History Allergy/AdvReac Type Severity Reaction Status Date / Time No Known Allergies Allergy Verified 06/24/25 23:33 Family History Father Heart disease Mother CVA (cerebral vascular accident) Surgical History Status post laparoscopic cholecystectomy History of pelvic surgery Hx of section H/O tubal ligation Social History household members: family and children Smoking Status: Current every day smoker tobacco type: e-cigarettes Electronic Cigarette Use: with nicotine alcohol intake: current alcohol intake frequency: 0-2 drinks per day details: Drinks 1 vodka drink 1-2 ounces up to once q HS. substance use type: does not use ROS ROS Narrative Admission Review of Systems: CONSTITUTIONAL: No weight loss, fever, chills, + weakness or fatigue. HEENT: Eyes: No visual loss, blurred vision, double vision or yellow sclerae. Ears, Nose, Throat: No hearing loss, sneezing, congestion, runny nose or sore throat. SKIN: No rash or itching, lesions, wounds. CARDIOVASCULAR: No chest pain, chest pressure or chest discomfort, palpitations, edema, orthopnea, syncopal events. RESPIRATORY: No shortness of breath, cough or sputum, wheezing, hemoptysis. GASTROINTESTINAL: + anorexia, abdominal bloating, alteration bowel movement consistency. No marked nausea, vomiting, melena, BRBPR. GENITOURINARY: No dysuria, frequency, urgency or retention. NEUROLOGICAL: No headache, dizziness, syncope, paralysis, ataxia, numbness or tingling in the extremities, focal weakness, change in bowel or bladder control, seizure. MUSCULOSKELETAL: + muscle, back pain, joint pain or stiffness. HEMATOLOGIC: + Chronic anemia, no easy marked history of bleeding or bruising. LYMPHATICS: No enlarged nodes. No history of splenectomy. PSYCHIATRIC: No history of depression or anxiety. ENDOCRINOLOGIC: No reports of sweating, cold or heat intolerance. No polyuria or polydipsia. ALLERGIES: No history of asthma, hives, eczema or rhinitis. Vital Signs Vital Signs Vital Signs: 06/24/25 23:32 06/25/25 00:48 06/25/25 01:32 Temperature 98.6 F Temperature Source Oral Pulse Rate 133 H 109 H Respiratory Rate 16 18 Respiratory Effort Normal Non-Labored Respiratory Pattern Normal Blood Pressure 119/76 100/62 Blood Pressure Mean 90 74 Pulse Ox 98 100 Oxygen Delivery Method Room Air Room Air 06/25/25 01:39 06/25/25 02:26 06/25/25 03:00 Temperature 98.5 F 99.1 F 99.2 F H Temperature Source Oral Oral Oral Pulse Rate 109 H 108 H 108 H Respiratory Rate 18 26 H 18 Respiratory Effort Respiratory Pattern Blood Pressure 100/62 96/67 96/53 L Blood Pressure Mean 74 76 67 Pulse Ox 100 98 99 Oxygen Delivery Method Room Air Room Air Room Air Weight Weight: 138 lb Body Mass Index (BMI) 24.4 Physical Exam Narrative Physical Examination: General: Awake, alert, oriented x 3 and cooperative, seated upright in ED bed, fatigued, mildly disheveled and ill-appearing. Skin: Normal color, normal turgor, no icterus, no cyanosis except occasional stage ecchymoses, abrasion. HEENT: AT/NC, EOMI, PERRLA, dry MM, thinned face, no carotid bruits or JVD noted. Lungs: Diminished, greater bases, proper effort, no rales, ronchi or wheezing. Heart: Mildly tachycardic with regular rhythm; no gallop, rub audible. Abdomen: Soft, NTTP, mildly distended with tympany, mildly hyperactive BS,+ HM. Extremities: No cyanosis, clubbing, or edema. Neurological: Patient awake, alert, oriented as noted, cognitive function intact; pupils equally reactive to light and accommodation, cranial nerves grossly normal, moving all 4 extremities, no focal deficits, strength moderately to severely globally decreased secondary to acute presentation. Psychiatric: Affect appears flat, fatigued, ill-appearing no acute evidence of depressive or anxiety feelings but does have underlying history. Results Lab / Micro Data 06/25/25 00:09 06/25/25 00:09 Labs: Laboratory Results - last 24 hr 06/25/25 00:09: WBC 6.8, RBC 2.84 L, Hgb 9.0 L, Hct 27.7 L, MCV 97.5, MCH 31.7, MCHC 32.5, RDW Std Deviation 73.0 H, RDW Coeff of Micheal 20.4 H, Plt Count 306, MPV 9.2, Immature Gran % (Auto) 0.600, Neut % (Auto) 76.6 H, Lymph % (Auto) 14.2 L, [place] % (Auto) 7.9, Eos % (Auto) 0.3, Baso % (Auto) 0.4, Absolute Neuts (auto) 5.2, Absolute Lymphs (auto) 0.97, Nucleated RBC % 0, Differential Comment SCANNED, Plt Morphology Comment LARGE, RBC Morphology NORM C+C, Polychromasia RARE, Anisocytosis RARE, Sodium 129 L, Potassium 4.0, Chloride 90 L, Carbon Dioxide 24.7, Anion Gap 14, BUN 4, Creatinine 0.48 L, Estim Creat Clear Calc 126.30, Est GFR (MDRD) Non-Af 121, BUN/Creatinine Ratio 8.8 L, Glucose 219 H, Lactic Acid 5.8 H*, Calcium 8.6, Total Bilirubin 1.86 H, AST 118 H, ALT 25, Alkaline Phosphatase 207 H, Troponin T High Sens < 6, Total Protein 6.0, Albumin 2.6 L, Globulin 3.3, Albumin/Globulin Ratio 0.8 L, Lipase 34, Serum , Qual NEGATIVE 06/25/25 02:15: Troponin T Hi Sens 2 Hr 6, Urine Color Yellow, Urine Clarity Sl. Cloudy, Urine pH 6.5, Ur Specific [place] 1.005, Urine Protein 30 H, Urine Glucose (UA) Normal, Urine Ketones Negative, Urine Occult Blood 25 H, Urine Nitrite Positive H, Urine Bilirubin 1 H, Urine Urobilinogen 8 H, Ur Leukocyte Esterase 100 H, Urine RBC 0 SEEN, Urine WBC 0-5 SEEN, Ur Squamous Epith Cells 5-10 SEEN, Ur Renal Epithelial Cell 0-5 SEEN, Urine Bacteria 2+, Urine Mucus 0 SEEN Micro: Microbiology 06/25/25 01:12 Mucosa - Nose SARS-CoV-2, Influenza & RSV (PCR) - Final ABG Data ABG results: ABG 06/25/25 01:24 Specimen Type ANGEL Sample Site Not entered VBG pH 7.53 H VBG pO2 41 H VBG HCO3 30 H VBG Total CO2 31 VBG O2 Sat (Calc) 82 H VBG Base Excess 7 H POC Mix VBG pCO2 Pt Tmp 35.6 L O2 Delivery Device Room Air Imaging Radiology Impression Abdomen/Pelvis CT 06/25/25 00:00 IMPRESSION: Fatty hepatomegaly with parenchymatous liver changes. Minimal sized progression of the right adnexal cyst. Diffuse rather uniform rectal mural thickening that could represent proctitis. Stable rest of the study findings. Reading Location: [place] [address] Assessment & Plan Assessment/Plan (1) Acute UTI: PLAN: Plan The patient is a 44 y/o F w/ PMHx: Anxiety and Depression, Asthma, Chronic normocytic anemia, Hx Memo's thyroiditis, Tobacco use who presents to the [facility] ED on 06/25/2025 with history of generalized weakness, fatigue, malaise, weight loss with alteration to her bowel movements noting that they have been more liquid with additionally a bloated type sensation prompting ED evaluation to be cautious. In the ED she does relate that a close friend recently had sudden diagnosis of colon cancer in the past which she is worried about having herself. #1. SIRS (tachycardic, significant lactic acidosis, source) secondary to Acute Urinary Tract Infection with concurrently noted #3: Will admit to the ICU, will consult felt tipping machine tender per protocol, UA upon ED evaluation remarkable, pending UCx, will continue IVFs, monitor I/Os, continue IV Zosyn with MRSA screen requested in the interim vancomycin de-escalation if negative given severity of clinical presentation w/ transition as able pending sensitivities and speciation. Bld cx x 2 obtained in the ED. #2. Significant lactic acidosis, possibly multifactorial given suspected alcoholic ketosis in addition to acute urinary tract infection and possible underlying malignancy as noted: Admission lactic acid 5.8, will continue aggressive hydration and trend lactic acid per facility protocol. #3. Diffuse uniform rectal mural thickening of unclear significance: Given current history certainly concern for underlying malignancy, will need to have follow-up outpatient GI consultation and endoscopy with biopsies. As noted above maintained on BSA. #4. Hyperglycemia without diabetic history: Admission glucose 219, no diabetic history however certainly high risk for alcoholic ketosis, will obtain hemoglobin A1c be cautious; however, the meantime we will maintain on Accu-Chek with insulin sliding scale in addition to ADA diet. #5. Concern for EtOH Abuse with mild hyperbilirubinemia, transaminitis: Patient notes routine consumption of vodka daily, at least 1-2 drinks, will maintain on CIWA protocol, MVI, thiamine and folic acid. Patient notes intention of continued EtOH usage. Magnesium and phosphorus levels requested. Case management consulted. #6. Acute on chronic hyponatremia, hypochloremia, suspect component of poor intake/dehydration given current presentation complaints in addition to possibly related to alcohol abuse: Admission sodium 129, chloride 90, will continue judicious hydration and repeat CMP in AM. #7. Chronic normocytic anemia: Admission hemoglobin 9.0, MCV 97.5, baseline hemoglobin has been vacillating, primarily 9-11 however these are remote and from 2021 thus unclear exact current baseline, will continue to trend CBC to further elucidate. #8. Chronic asthma: Not on any chronic regimen per list, will have as needed albuterol, encourage head of bed and I-S. #9. Anxiety and depression/mood disorder: Will continue patient home fluoxetine, bupropion and alprazolam regimen with hold for sedation as needed. #10. Tobacco Abuse: Encouraged cessation, inpatient consultation per RT, NR if desired. #11. DVT prophylaxis: Lovenox. Charges/Coding Visit Charges Inpatient E&M: 75551 Init Hosp L3
--- OUTSIDE RECORDS SUMMARY | 2025-06-25 03:41 | XMS RPT_ITS | CCD ---
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 [place] Chloride [Moles/Vol] 104 mmol/L Normal 98-107 [facility] Comment on above: Order Comment: Speci men Type: BLOOD SPECIMEN Ordering Facility: [facility] Address: [address] [place], [place] [address] Performed By: #### 2 4328, 2132-04 #### [facility] CLIA [id number] [address] [place] [address] [place] CO2 [Moles/Vol] 23 mmol/L Normal 22-30 [facility] Comment on above: Order Comment: Speci men Type: BLOOD SPECIMEN Ordering Facility: [facility] Address: [address] [place] [address] Performed By: #### 2 43210-16, 2132-04 #### [facility] CLIA [id number] [address] [place] [address] [place] Creatinine [Mass/Vol] 0.52 mg/dL Low 0.58-0.96 [facility] Comment on above: Order Comment: Speci men Type: BLOOD SPECIMEN Ordering Facility: [facility] Address: [address] [place] [address] Performed By: #### 2 43210-16, 2132-04 #### [facility] CLIA [id number] [address] [place] [address] [place] Creatinine and Glomerular filtration rate.predicted panel (S/P/Bld) 119 mL/min/1.73m??? Normal >=60 [facility] Comment on above: Order Comment: Speci men Type: BLOOD SPECIMEN Ordering Facility: [facility] Address: [address] [place] [address] Result Comment: Edith mated Glomerular Filtration Rate [...] Performed By: #### 2 4328, 2132-04 #### [facility] CLIA [id number] [address] [place], [place] [address] [place] Glucose [Mass/Vol] 83 mg/dL Normal 74-99 [facility] Comment on above: Order Comment: Teresa russell Type: BLOOD SPECIMEN Ordering Facility: [facility] Address: [address] [place] [address] Result Comment: The [place] Diabetes Association (ADA) provides guidance for cutoff [...] Standards of Medical Care in Diabetes 2016, [place] Diabetes Association. Diabetes Care. 2016.39(Suppl 1). Performed By: #### 2 43210-16, 2132-04 #### [facility] CLIA [id number] [address] [place] [address] [place] Potassium [Moles/Vol] 4.4 mmol/L Normal 3.7-5.1 [facility] Comment on above: Order Comment: Teresa russell Type: BLOOD SPECIMEN Ordering Facility: [facility] Address: [address] [place] [address] Performed By: #### 2 43210-16, 2132-04 #### [facility] CLIA [id number] [address] [place] [address] [place] Protein [Mass/Vol] 6.5 g/dL Normal 6.3-8.0 [facility] Comment on above: Order Comment: Teresa russell Type: BLOOD SPECIMEN Ordering Facility: [facility] Address: [address] [place] [address] Performed By: #### 2 43210-16, 2132-04 #### [facility] CLIA [id number] [address] [place] [address] [place] Sodium [Moles/Vol] 137 mmol/L Normal 136-144 [facility] Comment on above: Order Comment: Speci men Type: BLOOD SPECIMEN Ordering Facility: [facility] Address: [address] [place], [place] [address] Performed By: #### 2 4323-8, 2132-04 #### [facility] CLIA [id number] [address] [place], [place] [address] [place] Urea nitrogen [Mass/Vol] 5 mg/dL Low 7-21 [facility] Comment on above: Order Comment: Speci men Type: BLOOD SPECIMEN Ordering Facility: [facility] Address: [address] [place] [address] Performed By: #### 2 4323-8, 2132-04 #### [facility] CLIA [id number] [address] [place] [address] [place] Lipid 1996 panelon 5 Cholesterol [Mass/Vol] 340 mg/dL High <200 [facility] Comment on above: Order Comment: Speci men Type: BLOOD SPECIMEN Ordering Facility: [facility] Address: [address] [place] [address] Result Comment: <200 mg/dL, Desirable 200-239 mg/dL, Borderline high >239 mg/dL, High Performed By: #### 5 195-3, 09212-0, 58388-4, 97257-4 #### [facility] CLIA [id number] [address] [place] [address] [place] Cholesterol in HDL [Mass/Vol] 30 mg/dL Low >39 [facility] Comment on above: Order Comment: Speci men Type: BLOOD SPECIMEN Ordering Facility: [facility] Address: [address] [place] [address] Result Comment: 40-5 9 mg/dL, Acceptable >59 mg/dL, High: Negative risk factor for coronary heart disease <40 mg/dL, Low: Positive risk factor for coronary heart disease Performed By: #### 5 195-3, 08622-1, 12979-0, 36672-9 #### [facility] CLIA [id number] [address] [place] [address] [place] Cholesterol in LDL [Mass/Vol] 259 mg/dL High <100 [facility] Comment on above: Order Comment: Brittanyi men Type: BLOOD SPECIMEN Ordering Facility: [facility] Address: [address] [place] [address] Result Comment: <100 mg/dL, Optimal 100-129 mg/dL, Near optimal/above optimal 130-159 mg/dL, Borderline high 160-189 mg/dL, High >189 mg/dL, Very high Secondary prevention optimal LDL Cholesterol levels are recommended to be <70 mg/dL LDL cholesterol is calculated using the Espino-NIH equation. Performed By: #### 5 195-3, 80819-0, 74955-3, 48648-0 #### [facility] CLIA [id number] [address] [place] [address] [place] Cholesterol in LDL/Cholesterol in HDL [Mass ratio] 8.63 {ratio} High <2.54 [facility] Comment on above: Order Comment: Brittanyi drew Type: BLOOD SPECIMEN Ordering Facility: [facility] Address: [address] [place] [address] Result Comment: [place] carroll: 1. National Cholesterol Education Program ATP III Guideline At-A-Glance Quick Desk Reference: National Heart, Lung, and Blood [place]. National Institutes of Health. 2001: NIH Publication No. 01-3305. 2. An International Atherosclerosis Society position paper: global recommendations for the management of dyslipidemia: executive summary, Atherosclerosis. 2014: 232(2):410-413. Performed By: #### 5 195-3, 98773-9, 05544-8, 22015-6 #### [facility] CLIA [id number] [address] [place] [address] [place] Cholesterol in VLDL [Mass/Vol] 58 mg/dL High <30 [facility] Comment on above: Order Comment: Speci men Type: BLOOD SPECIMEN Ordering Facility: [facility] Address: [address] [place] [address] Performed By: #### 5 195-3, 15651-8, 68355-0, 05167-4 #### [facility] CLIA [id number] [address] [place] [address] [place] Cholesterol non HDL [Mass/Vol] 310 mg/dL High <130 [facility] Comment on above: Order Comment: Speci men Type: BLOOD SPECIMEN Ordering Facility: [facility] Address: [address] [place] [address] Result Comment: <130 mg/dL, Optimal 130-159 mg/dL, Near optimal/above optimal 160-189 mg/dL, Borderline high 190-219 mg/dL, High >219 mg/dL, Very high Secondary prevention optimal non HDL Cholesterol levels are recommended to be <100 mg/dL Performed By: #### 5 195-3, 59516-0, 55349-6, 30893-3 #### [facility] CLIA [id number] [address] [place] [address] [place] Cholesterol.total/ Cholesterol in HDL [Mass ratio] 11.33 {ratio} High <5.10 [facility] Comment on above: Order Comment: Speci men Type: BLOOD SPECIMEN Ordering Facility: [facility] Address: [address] [place] [address] Performed By: #### 5 195-3, 69198-5, 96081-1, 93663-5 #### [facility] CLIA [id number] [address] [place] [address] [place] FASTING TIME 12 hrs Normal [facility] Comment on above: Order Comment: Speci men Type: BLOOD SPECIMEN Ordering Facility: [facility] Address: [address] [place] [address] Performed By: #### 5 195-3, 96576-9, 66780-3, 77623-0 #### [facility] CLIA [id number] [address] [place] [address] [place] Triglyceride [Mass/Vol] 240 mg/dL High <150 [facility] Comment on above: Order Comment: Speci men Type: BLOOD SPECIMEN Ordering Facility: [facility] Address: [address] [place] [address] Result Comment: <150 mg/dL, Normal 150-199 mg/dL, Borderline high 200-499 mg/dL, High >499 mg/dL, Very high Performed By: #### 5 195-3, 45490-9, 62061-8, 47443-3 #### [facility] CLIA [id number] [address] [place] [address] [place] T3Free SerPl-mCncon 02-15-20 25 Free T3 [Mass/Vol] 2.4 pg/mL Normal 2.3-4.1 [facility] Comment on above: Order Comment: Speci men Type: BLOOD SPECIMEN Ordering Facility: [facility] Address: [address] [place] [address] Performed By: #### 5 195-3, 20505-1, 03659-7, 83967-5 #### [facility] CLIA [id number] [address] [place] [address] [place] T4 Free SerPl-mCncon 025 Free T4 [Mass/Vol] 0.9 ng/dL Normal 0.9-1.7 [facility] Comment on above: Order Comment: Speci men Type: BLOOD SPECIMEN Ordering Facility: [facility] Address: [address] [place] [address] Performed By: #### 5 195-3, 34664-6, 66404-3, 83687-0 #### [facility] CLIA [id number] [address] [place] [address] [place] TSH SerPl-aCncon 02-14-2025 TSH Qn 20.300 m[IU]/L High 0.270-4.200 [facility] Comment on above: Order Comment: Speci men Type: BLOOD SPECIMEN Ordering Facility: [facility] Address: [address] [place] [address] Result Comment: If t he patient is , TSH reference range varies by gestational period: First Trimester (weeks 9-12): 0.180-2.990 mIU/L Second Trimester: 0.110-3.980 mIU/L Third Trimester: 0.480-4.710 mIU/L Maicol Carlin et al. A Practical Approach for the Verifications and Determination of Site- and Trimester-Specific Reference Intervals for Thyroid Function tests in . Thyroid, 2019:29:3:412-420. Max Miranda, et al. 2017 Guidelines of the [place] Thyroid Association for the Diagnosis and Management of Thyroid Disease during and the . Thyroid, 2017:27:3:315-389. Performed By: #### 5 195-3, 05087-6, 19184-1, 72989-8 #### [facility] CLIA [id number] [address] [place] [address] [place] Urinalysis complete panel (U )on 02-14-2025 BACTERIA UL >9821 High Negative [facility] Comment on above: Order Comment: Speci men Type: BLOOD SPECIMEN Ordering Facility: [facility] Address: [address] [place] [address] Performed By: #### 5 195-3, 51062-6, 73422-3, 17981-3 #### [facility] CLIA [id number] [address] [place], [place] [address] [place] Bilirubin Ql (U) Negative Normal Negative [facility] Comment on above: Order Comment: Speci men Type: BLOOD SPECIMEN Ordering Facility: [facility] Address: [address] [place] [address] Performed By: #### 5 195-3, 42234-8, 65473-4, 30391-3 #### [facility] CLIA [id number] [address] [place] [address] [place] Clarity (Unsp spec) Cloudy Abnormal Clear [facility] Comment on above: Order Comment: Speci men Type: BLOOD SPECIMEN Ordering Facility: [facility] Address: [address] [place] [address] Performed By: #### 5 195-3, 39425-1, 08896-2, 40234-9 #### [facility] CLIA [id number] [address] [place] [address] [place] Color (U) Yellow Normal Yellow [facility] Comment on above: Order Comment: Speci men Type: BLOOD SPECIMEN Ordering Facility: [facility] Address: [address] [place] [address] Performed By: #### 5 195-3, 76667-1, 67068-9, 32866-2 #### [facility] CLIA [id number] [address] [place] [address] [place] Epithelial cells LM.HPF (Urine sed) [#/Area] Few Normal [facility] Comment on above: Order Comment: Speci men Type: BLOOD SPECIMEN Ordering Facility: [facility] Address: [address] [place] [address] Performed By: #### 5 195-3, 54400-1, 24041-0, 99466-6 #### [facility] CLIA [id number] [address] [place] [address] [place] Glucose Test strip (U) [Mass/Vol] Negative Normal Negative [facility] Comment on above: Order Comment: Speci men Type: BLOOD SPECIMEN Ordering Facility: [facility] Address: [address] [place] [address] Performed By: #### 5 195-3, 95806-1, 49476-0, 66844-0 #### [facility] CLIA [id number] [address] [place] [address] [place] Hemoglobin Ql (U) Negative Normal Negative [facility] Comment on above: Order Comment: Speci men Type: BLOOD SPECIMEN Ordering Facility: [facility] Address: [address] [place] [address] Performed By: #### 5 195-3, 30377-6, 42450-8, 84476-3 #### [facility] CLIA [id number] [address] [place] [address] [place] Hyaline casts (Urine sed) [#/Area] 0 /[LPF] Normal 0 /LPF [facility] Comment on above: Order Comment: Speci men Type: BLOOD SPECIMEN Ordering Facility: [facility] Address: [address] [place] [address] Performed By: #### 5 195-3, 20603-3, 77903-2, 74251-3 #### [facility] CLIA [id number] [address] [place] [address] [place] Ketones Ql (U) Negative Normal Negative [facility] Comment on above: Order Comment: Speci men Type: BLOOD SPECIMEN Ordering Facility: [facility] Address: [address] [place] [address] Performed By: #### 5 195-3, 09692-4, 25087-2, 55944-5 #### [facility] CLIA [id number] [address] [place] [address] [place] Leukocyte esterase Test strip Ql (U) 2+ Abnormal Negative [facility] Comment on above: Order Comment: Speci men Type: BLOOD SPECIMEN Ordering Facility: [facility] Address: [address] [place] [address] Performed By: #### 5 195-3, 39705-6, 89623-2, 06744-9 #### [facility] CLIA [id number] [address] [place] [address] [place] Nitrite Ql (U) Positive Abnormal Negative [facility] Comment on above: Order Comment: Speci men Type: BLOOD SPECIMEN Ordering Facility: [facility] Address: [address] [place] [address] Performed By: #### 5 195-3, 32621-1, 24516-1, 44579-3 #### [facility] CLIA [id number] [address] [place] [address] [place] pH (U) 6.5 [pH] Normal <8.5 [facility] Comment on above: Order Comment: Speci men Type: BLOOD SPECIMEN Ordering Facility: [facility] Address: [address] [place] [address] Performed By: #### 5 195-3, 18648-6, 80057-4, 24565-7 #### [facility] CLIA [id number] [address] [place] [address] [place] [place] Protein (U) [Mass/Vol] Negative Normal Negative [facility] Comment on above: Order Comment: Speci men Type: BLOOD SPECIMEN Ordering Facility: [facility] Address: [address] [place] [address] Performed By: #### 5 195-3, 32663-2, 43910-0, 03754-1 #### [facility] CLIA [id number] [address] [place] [address] [place] RBC LM.HPF (Urine sed) [#/Area] 0-2 /HPF Normal 0-2 /HPF [facility] Comment on above: Order Comment: Speci men Type: BLOOD SPECIMEN Ordering Facility: [facility] Address: [address] [place] [address] Performed By: #### 5 195-3, 85228-4, 29338-9, 52403-6 #### [facility] CLIA [id number] [address] [place] [address] [place] Specific gravity (U) [Rel density] 1.012 Normal 1.005-1.030 [facility] Comment on above: Order Comment: Speci men Type: BLOOD SPECIMEN Ordering Facility: [facility] Address: [address] [place] [address] Performed By: #### 5 195-3, 16082-3, 64342-2, 55759-0 #### [facility] CLIA [id number] [address] [place] [address] [place] Urobilinogen Ql (U) 0.2 EU/dL Normal 0.2-1.0 EU/dL [facility] Comment on above: Order Comment: Speci men Type: BLOOD SPECIMEN Ordering Facility: [facility] Address: [address] [place] [address] Performed By: #### 5 195-3, 46812-1, 61743-8, 76584-1 #### [facility] CLIA [id number] [address] [place] [address] [place] WBC LM.HPF (Urine sed) [#/Area] 6-10 /HPF Abnormal 0-5 /HPF [facility] Comment on above: Order Comment: Speci men Type: BLOOD SPECIMEN Ordering Facility: [facility] Address: [address] [place] [address] Performed By: #### 5 195-3, 57199-2, 33328-2, 58584-0 #### [facility] CLIA [id number] [address] [place] [address] [place] Vit B12 Banner 07-2 025 Cobalamin (Vitamin B12) [Mass/Vol] 549 pg/mL Normal 232-1245 [facility] Comment on above: Order Comment: Speci men Type: BLOOD SPECIMEN Ordering Facility: [facility] Address: [address] [place] [address] Performed By: #### 2 4323-8, 2132-9 #### [facility] CLIA [id number] [address] [place] [address] [place] 01-19-2025 [facility] Telephone ([facility]) -------- TAYA VIVEROS ([id number]) 1980 F [place] Date Time Provider Department 01/19/25 KAREN COLLADO During your visit today, we [...] Take 1 tablet by mouth twice weekly [id number], then decrease to 1 tablet weekly. - [...] complicating [O99.330]11/03/2014 Previous delivery affecting *11/03/2014 control [ITH4063] 11/03/2014 History of depression [Z86.59] 11/03/2014 11/03/2014 Anxiety [F41.9] 11/03/2014 Grand multipara [Z64.1] 11/25/2014 Supervision of other high-risk [O09.8*01/26/2015 Depression [F32.A] 03/06/2015 Encounter Status:Closed by EJ ESQUIVEL on 01/19/25 Normal [facility] Urine Cultureon 06-16-2024 [facility] Mixed Gram Positive Organisms Wiggins Count 11,000-25,000 MIXC Mixed contaminants. Submit a new specimen if indicated. Normal [facility] Comment on above: Performed By: #### M 100.2200 #### [facility] Laboratory [address] [place], [address] CBC W/Diff, Automatedon Absolute Lymph 0.93 X10 3/uL Normal 0.83-4.51 [facility] Comment on above: Performed By: #### L 100.0100 #### [facility] Laboratory [address] [place], [address] Absolute Neut 10.6 X10 3/uL High 2.0-7.7 [facility] Comment on above: Performed By: #### L 100.0100 #### [facility] Laboratory [address] [place], [address] Basophils/100 WBC (Bld) 0.4 % Normal 0-1 [facility] Comment on above: Performed By: #### L 100.0100 #### [facility] Laboratory [address] [place], [address] Eosinophils/100 WBC (Bld) 0.0 % Normal 0-5 [facility] Comment on above: Performed By: #### L 100.0100 #### [facility] Laboratory [address] [place], [address] Erythrocyte distribution width (RBC) [Ratio] 15.0 % High 11.6-14.6 [facility] Comment on above: Performed By: #### L 100.0100 #### [facility] Laboratory [address] [place], [address] Hematocrit (Bld) [Volume fraction] 44.1 % Normal 37-47 [facility] Comment on above: Performed By: #### L 100.0100 #### [facility] Laboratory [address] [place], [address] Hemoglobin (Bld) [Mass/Vol] 15.0 g/dL Normal 12.0-15.0 [facility] Comment on above: Performed By: #### L 100.0100 #### [facility] Laboratory [address] [place], [address] IG% 0.400 Normal 0.0-0.9 [facility] Comment on above: Result Comment: IG% - Immature Granulocytes (promyelocytes, myelocytes and metamyelocytes) > 1% indicates that a LEFT SHIFT is Present. Performed By: #### L 100.0100 #### [facility] Laboratory [address] [place], [address] Lymphocytes/100 WBC (Bld) 7.6 % Low 19-41 [facility] Comment on above: Performed By: #### L 100.0100 #### [facility] Laboratory [address] [place], [address] MCH (RBC) [Entitic mass] 28.0 pg Normal 27.0-32.0 [facility] Comment on above: Performed By: #### L 100.0100 #### [facility] Laboratory [address] [place], [address] MCHC (RBC) [Mass/Vol] 34.0 g/dL Normal 32-36 [facility] Comment on above: Performed By: #### L 100.0100 #### [facility] Laboratory [address] [place], [address] MCV (RBC) [Entitic vol] 82.4 fL Normal 81-99 [facility] Comment on above: Performed By: #### L 100.0100 #### [facility] Laboratory [address] [place], [address] Monocytes/100 WBC (Bld) 4.7 % Normal 0-10 [facility] Comment on above: Performed By: #### L 100.0100 #### [facility] Laboratory [address] [place], [address] Neutrophils/100 WBC (Bld) 86.9 % High 47-70 [facility] Comment on above: Performed By: #### L 100.0100 #### [facility] Laboratory [address] [place], [address] Nucleated RBC (Bld) [#/Vol] 0 10*3/uL Normal 0-5 [facility] Comment on above: Performed By: #### L 100.0100 #### [facility] Laboratory [address] [place], [address] Platelet mean volume (Bld) [Entitic vol] 9.7 fL Normal 6.2-12.0 [facility] Comment on above: Performed By: #### L 100.0100 #### [facility] Laboratory [address] [place], [address] Platelets (Bld) [#/Vol] 220 10*3/uL Normal 150-450 [facility] Comment on above: Performed By: #### L 100.0100 #### [facility] Laboratory [address] [place], [address] RBC (Bld) [#/Vol] 5.35 10*6/uL Normal 4.2-5.4 [facility] Comment on above: Performed By: #### L 100.0100 #### [facility] Laboratory [address] [place], [address] RDW SD 45.0 fl High 35.1-43.9 [facility] Comment on above: Performed By: #### L 100.0100 #### [facility] Laboratory [address] [place], [address] WBC (Bld) [#/Vol] 12.2 10*3/uL High 4.4-11.0 [facility] Comment on above: Performed By: #### L 100.0100 #### [facility] Laboratory [address] [place], [address] Comprehensive Metabolic Prof ilon 06-14-2024 Albumin [Mass/Vol] 4.3 g/dL Normal 3.2-5.0 [facility] Comment on above: Performed By: #### L 500.4050, L501.2450 #### [facility] Laboratory [address] [place], [address] Albumin/Globulin [Mass ratio] 0.9 {ratio} Normal 0.9-2.4 [facility] Comment on above: Performed By: #### L 500.4050, L501.2450 #### [facility] Laboratory [address] [place], [address] ALK P 77 U/L Normal 45-117 [facility] Comment on above: Performed By: #### L 500.4050, L501.2450 #### [facility] Laboratory [address] [place], [address] ALT [Catalytic activity/Vol] 70 U/L High 13-56 [facility] Comment on above: Performed By: #### L 500.4050, L501.2450 #### [facility] Laboratory [address] [place], [address] AST [Catalytic activity/Vol] 94 U/L High 15-37 [facility] Comment on above: Performed By: #### L 500.4050, L501.2450 #### [facility] Laboratory [address] [place], [address] Bilirubin [Mass/Vol] 1.50 mg/dL High 0.20-1.00 [facility] Comment on above: Result Comment: For patients on eltrombopag therapy, use of Dimension Randolph TBIL is not recommended. Performed By: #### L 500.4050, L501.2450 #### [facility] Laboratory [address] [place], [address] BUN/CRE 7.9 RATIO Low 10-20 [facility] Comment on above: Performed By: #### L 500.4050, L501.2450 #### [facility] Laboratory [address] [place], [address] CA,Total 10.7 mg/dL High 8.5-10.1 [facility] Comment on above: Performed By: #### L 500.4050, L501.2450 #### [facility] Laboratory [address] [place], [address] Chloride [Moles/Vol] 94 mmol/L Low 98-107 [facility] Comment on above: Performed By: #### L 500.4050, L501.2450 #### [facility] Laboratory [address] [place], [address] CO2 [Moles/Vol] 12.0 mmol/L Low 21.0-32.0 [facility] Comment on above: Performed By: #### L 500.4050, L501.2450 #### [facility] Laboratory [address] [place], [address] Creatinine [Mass/Vol] 1.01 mg/dL Normal 0.55-1.02 [facility] Comment on above: Result Comment: The validity of the calculated GFR GFRAA in patients over 70 years has not been determined. Clinical correlation is essential. Performed By: #### L 500.4050, L501.2450 #### [facility] Laboratory [address] [place], [address] ECRCL 60.64 ml/min Normal [facility] Comment on above: Performed By: #### L 500.4050, L501.2450 #### [facility] Laboratory [address] [place], [address] EST GFR - AA 77 mL/min Normal >60 [facility] Comment on above: Result Comment: Afri can Irish GFR Calc Performed By: #### L 500.4050, L501.2450 #### [facility] Laboratory [address] [place], [address] GAP 27 High 5-15 [facility] Comment on above: Performed By: #### L 500.4050, L501.2450 #### [facility] Laboratory [address] [place], [address] GFR/1.73 sq M.predicted among non-blacks MDRD (S/P/Bld) [Vol rate/Area] 64 mL/min/{1.73_m2} Normal >60 [facility] Comment on above: Result Comment: Non- GFR Calc Performed By: #### L 500.4050, L501.2450 #### [facility] Laboratory [address] [place], [address] Globulin (S) [Mass/Vol] 4.7 g/dL High 2.2-4.2 [facility] Comment on above: Performed By: #### L 500.4050, L501.2450 #### [facility] Laboratory [address] [place], [address] Glucose [Mass/Vol] 123 mg/dL High 74-106 [facility] Comment on above: Result Comment: Fast ing Glucose result from 100 to 125 mg/dL suggests IMPAIRED HOMEOSTASIS per A.D.A. criteria. Performed By: #### L 500.4050, L501.2450 #### [facility] Laboratory [address] [place], [address] Potassium [Moles/Vol] 2.6 mmol/L Invalid Interpretation Code 3.5-5.1 [facility] Comment on above: Performed By: #### L 500.4050, L501.2450 #### [facility] Laboratory [address] [place], [address] Sodium [Moles/Vol] 133 mmol/L Low 136-145 [facility] Comment on above: Result Comment: Crit ical Result(s) Called at: 14:59:57 06/14/2024 by: LEXIE LIU to Chiquita Godfrey. Results read back by same. Performed By: #### L 500.4050, L501.2450 #### [facility] [address] [place], [address] T PROT 9.0 g/dL High 6.4-8.2 [facility] Comment on above: Performed By: #### L 500.4050, L501.2450 #### [facility] Laboratory [address] [place], [address] Urea nitrogen [Mass/Vol] 8 mg/dL Normal 7-18 [facility] Comment on above: Performed By: #### L 500.4050, L501.2450 #### [facility] Laboratory [address] [place], [address] Emergency Department Summary on 06-14-2024 Emergency Department Summary [facility] Medical Records Department [address] [place] [address] Emergency Department Summary 06/14/24 MR#: [id number] Acct: [id number] Name: TAYA VIVEROS Rep #: [id number] : 1980 43 From: Paul Lombardi DO [...] mill e (more content not included)... Normal [facility] Lipaseon 06-14-2024 Lipase [Catalytic activity/Vol] 67 U/L Normal 13-75 [facility] Comment on above: Result Comment: Alfrde leyva note: LIPASE revised reference range effective 22. New Lipase methodology. Expected to produce lower values than the previous assay method. NEW Reference Range: 13 - 75 U/L Performed By: #### L 500.4050, L501.2450 #### [facility] Laboratory [address] [place], [address] Magnesiumon 06-14-2024 Magnesium [Mass/Vol] 2.2 mg/dL Normal 1.6-2.6 [facility] Comment on above: Performed By: #### L 501.5200 #### [facility] Laboratory [address] [place], [address] Potassiumon 06-14-2024 Potassium [Moles/Vol] 3.3 mmol/L Low 3.5-5.1 [facility] Comment on above: Performed By: #### L 501.5600 #### [facility] Laboratory [address] [place], [address] Urinalysis, Completeon 06-14 BACTERIA 1+ /hpf Normal None Seen [facility] Comment on above: Order Comment: CLEAN CATCH Performed By: #### L 400.0001 #### [facility] Laboratory [address] [place], [address] CAST,HYALINE 5-10 SEEN Normal 0-5 [facility] Comment on above: Order Comment: CLEAN CATCH Performed By: #### L 400.0001 #### [facility] Laboratory [address] [place], [address] Mucus Ql (Urine sed) 2+ /hpf Normal [facility] Comment on above: Order Comment: CLEAN CATCH Performed By: #### L 400.0001 #### [facility] Laboratory [address] [place], [address] RBC 0-5 SEEN Normal 0-5 [facility] Comment on above: Order Comment: CLEAN CATCH Performed By: #### L 400.0001 #### [facility] Laboratory [address] [place], [address] WBC 0-5 SEEN Normal 0-5 [facility] Comment on above: Order Comment: CLEAN CATCH Performed By: #### L 400.0001 #### [facility] Laboratory [address] [place], [address] EPI,SQUAMOUS 5-10 SEEN Normal 5-10 [facility] Comment on above: Order Comment: CLEAN CATCH Performed By: #### L 400.0001 #### [facility] Laboratory [address] [place], [address] CNPNon 03-14-2024 [facility] -------- TAYA VIVEROS ([id number]) 1980 F [place] Date Time Provider Department 03/14/24 AKHIL VILLARREAL [facility] During your visit today, we recorded the [...] Take 1 tablet by mouth twice weekly [id number], then decrease to 1 tablet weekly. - [...] complicating [O99.330]11/03/2014 Previous delivery affecting *11/03/2014 control [[id number]] 11/03/2014 History of depression [Z86.59] 11/03/2014 11/03/2014 Anxiety [F41.9] 11/03/2014 Grand multipara [Z64.1] 11/25/2014 Supervision of other high-risk [O09.8*01/26/2015 Depression [F32.A] 03/06/2015 Encounter Status:Closed by MINNIE ASHBY on 03/14/24 [facility] [place] 03-13-2024 [facility] Telephone ([facility]) -------- TAYA VIVEROS ([id number]) 1980 F U[place] Date Time Provider Department 03/13/24 ANIL PANCHAL [facility] During your visit today, we recorded the [...] Take 1 tablet by mouth twice weekly [id number], then decrease to 1 tablet weekly. - [...] complicating [O99.330]11/03/2014 Previous delivery affecting *11/03/2014 control [[id number]] 11/03/2014 History of depression [Z86.59] 11/03/2014 11/03/2014 Anxiety [F41.9] 11/03/2014 Grand multipara [Z64.1] 11/25/2014 Supervision of other high-risk [O09.8*01/26/2015 Depression [F32.A] 03/06/2015 Prescriptions ordered this encounter Disp Refills Start End METRONIDAZOLE 500 MG TABLET 14 t* 0 03/13/2024 03/20/2024 Route: ORAL Sig: Take 1 tablet by mouth two times a day for 7 days. Encounter Status:Closed by MEKA PARDO on 03/13/24 Normal [facility] BACTERIAL VAGINOSIS NAATon 0 03-12-2024 Lactobacillus crispatus+gasseri+ jensenii + Gardnerella vaginalis + Atopobium vaginae rRNA NELI+probe Ql (Vag fld) Positive Abnormal Negative for bacterial vaginosis [facility] Comment on above: Order Comment: Speci men Type: BLOOD SPECIMEN Ordering Facility: [facility] Address: [address] [place] [address] Performed By: #### 5 195-3, 54273-8, 89232-5, 99721-5 #### [facility] [place] [id number] [address] [place], [place] [address] [address] [place] Bacteria Ur Culton [...] , Intermediate >32 , Resistant >64 Abnormal [facility] Comment on above: Performed By: #### 2 4323-8, 2132-9 #### [facility] CLIA [id number] [address] [place] [address] [place] C. trachomatis+N. gonorrhoea e DNA NELI+probe Ql (Unsp spec)on 03-12-2024 C. trachomatis rRNA NELI+probe Ql (Unsp spec) Negative Normal Negative for Chlamydia trachomatis by amplificaton [facility] Comment on above: Order Comment: Speci men Type: BLOOD SPECIMEN Ordering Facility: [facility] Address: [address] [place] [address] Performed By: #### 5 195-3, 57722-6, 81025-9, 41700-4 #### [facility] CLIA [id number] [address] [place] [address] [place] N. gonorrhoeae rRNA NELI+probe Ql (Unsp spec) Negative Normal Negative for Neisseria gonorrhoeae by amplification [facility] Comment on above: Order Comment: Speci men Type: BLOOD SPECIMEN Ordering Facility: [facility] Address: [address] [place] [address] Performed By: #### 5 195-3, 43547-9, 13063-3, 84576-3 #### [facility] CLIA [id number] [address] [place] [address] [place] HARSHAD/TRICHOMONAS NAATon 0 03-12-2024 C. glabrata RNA NELI+probe Ql (Vag fld) Negative Normal Negative for Harshad glabrata [facility] Comment on above: Order Comment: Speci men Type: BLOOD SPECIMEN Ordering Facility: [facility] Address: [address] [place] [address] Performed By: #### 5 195-3, 00502-1, 86302-7, 32503-8 #### [facility] CLIA [id number] [address] [place] [address] OF [place] Harshad sp DNA NELI+probe Ql (Vag fld) Negative Normal Negative for Harshad species [facility] Comment on above: Order Comment: Speci men Type: BLOOD SPECIMEN Ordering Facility: [facility] Address: [address] [place] [address] Performed By: #### 5 195-3, 10846-5, 24028-0, 77772-5 #### [facility] CLIA [id number] [address] [place] [address] OF [place] T. vaginalis DNA NELI+probe Ql (Unsp spec) Positive Abnormal Negative for Trichomonas vaginalis by amplification [facility] Comment on above: Order Comment: Speci men Type: BLOOD SPECIMEN Ordering Facility: [facility] Address: [address] [place] [address] Performed By: #### 5 195-3, 78628-1, 29425-7, 30176-6 #### [facility] [facility] CLIA [id number] [address] [place] [address] OF HUMZA CNOVon 03-12-2024 CNOV Office Visit (UCWSTR ) -------- TAYA VIVEROS ([id number]) 1980 F UPA Date Time Provider Department 03/12/24 12:15 PM [facility]IR[facility] During your visit today, we recorded the following information about you: Temperature Pulse Respiration Blood pressure 98.3 degrees 109/minute 20/minute 114/78 Weight Last Period 62 kg 02/18/24 Nadira Sanderson APRN.SALAD COUNTER ATTENDANT 03/12/2024 12:58 PM Signed This note was [...] history is provided by the patient. No foreign language instructor was used. UTI This is a new [...] Take 1 tablet by mouth twice weekly [id number], then decrease to 1 tablet weekly. (Patient [...] Paternal Uncle P UNCLE X 4 WITH [place] Social History Tobacco Use Smoking status: Former [...] reviewed. Con (more content not included)... Normal [facility] UA DIP, URINE (POC)on 2023 BILIRUBIN UA (POCT) Negative Negative [facility] CLARITY UA (POCT) Cloudy [facility] COLOR UA (POCT) Yellow [facility] GLUCOSE UA (POCT) Negative Negative mg/dL [facility] Hemoglobin Ql (U) Trace-intact Abnormal Negative [facility] Interpretation and review of laboratory results Abnormal [facility] KETONE UA (POCT) Negative Negative [facility] LEUKOCYTES UA (POCT) Small Abnormal Negative [facility] NITRITE UA (POCT) Positive Abnormal Negative [facility] PH UA (POCT) 6.0 4.5 - 8.0 [facility] Protein Ql (U) Negative Negative mg/dL [facility] SPECIFIC GRAVITY UA (POCT) <=1.005 Abnormal 1.005 - 1.030 [facility] UROBILINOGEN UA (POCT) 0.2 Normal E.U./dL [facility] Location:[facility], [address] [place] [address], [place], [place], [id number] [place] [address] POINT OF CARE [facility] Absolute lymphocyte counton 04-02-2022 Lymphocytes Auto (Unsp spec) [#/Vol] 1.51 10*3/uL 0.83-4.51 [facility] [place] Work Phone: [phone] Basophil percentageon 2021 Amylase [Catalytic activity/Vol] 26 U/L 25-115 [facility] [place] Work Phone: [phone] Basophils/100 WBC (Bld) 0.4 % 0-1 [facility] [place] Work Phone: Bilirubin [Mass/Vol] 0.60 mg/dL 0.20-1.00 [facility] Work Phone: Comment on above: For patients on eltr ombopag therapy, use of Dimension [place] TBIL is not recommended. Chloride [Moles/Vol] 100 mmol/L 98-107 [facility] [place] Work Phone: Eosinophils/100 WBC (Bld) 0.1 % 0-5 [facility] [place] Work Phone: Glucose [Mass/Vol] 97 mg/dL 74-106 [facility] Work Phone: [phone] Neutrophils (Bld) [#/Vol] 7.5 10*3/uL 2.0-7.7 [facility] [place] Work Phone: Neutrophils/100 WBC (Bld) 75.4 % 47-70 [facility] [place] Work Phone: [phone] Potassium [Moles/Vol] 3.0 mmol/L 3.5-5.1 [facility] [place] Work Phone: Protein [Mass/Vol] 7.7 g/dL 6.4-8.2 [facility] Work Phone: [phone] Sodium [Moles/Vol] 137 mmol/L 136-145 [facility] Work Phone: WBC (Bld) [#/Vol] 10.0 10*3/uL 4.4-11.0 [facility] Work Phone: Blood erythrocytes count (nu mber/volume)on 04-02-2022 RBC (Bld) [#/Vol] 3.98 10*6/uL 4.2-5.4 [facility] Work Phone: Blood hemoglobin measurement (mass/volume)on 04-02-2022 Hemoglobin (Bld) [Mass/Vol] 11.8 g/dL 12.0-15.0 [facility] Work Phone: [phone] Blood lymphocytes/100 leukoc yteson 04-02-2022 Lymphocytes/100 WBC (Bld) 15.2 % 19-41 [facility] [place] Work Phone: [phone] Blood monocytes/100 leukocyt eson 04-02-2022 Monocytes/100 WBC (Bld) 8.2 % 0-10 [facility] [place] Work Phone: Blood platelet mean volumeon 04-02-2022 Platelet mean volume (Bld) [Entitic vol] 10.2 fL 6.2-12.0 [facility] [place] Work Phone: Determination of erythrocyte mean corpuscular volume (MCV)on 04-02-2022 MCV (RBC) [Entitic vol] 90.5 fL 81-99 [facility] [place] Work Phone: Erythrocyte sedimentation ra susan 04-02-2022 ESR (Bld) [Velocity] 89 mm/h 0-30 [facility] [place] Work Phone: Hematocrit Auto (Bld) [Volum e fraction]on 04-02-2022 Hematocrit (Bld) [Volume fraction] 36.0 % 37-47 [facility] [place] Work Phone: Laboratory - Chemistry and C hemistry - challengeon 04-02-2022 ALP [Catalytic activity/Vol] 115 U/L 45-117 [facility] [place] Work Phone: ALT [Catalytic activity/Vol] 48 U/L 13-56 [facility] [place] Work Phone: CO2 [Moles/Vol] 26.0 mmol/L 21.0-32.0 [facility] [place] Work Phone: Globulin (S) [Mass/Vol] 5.1 g/dL 2.2-4.2 [facility] [place] Work Phone: Lipase [Catalytic activity/Vol] 124 U/L 73-393 [facility] [place] Work Phone: Urea nitrogen/Creatinin e [Mass ratio] 4.6 mg/mg 10-20 [facility] [place] Work Phone: Laboratory - Hematology and Cell countson 04-02-2022 Erythrocyte distribution width (RBC) [Entitic vol] 51.4 fL 35.1-43.9 [facility] [place] Work Phone: Erythrocyte distribution width (RBC) [Ratio] 15.4 % 11.6-14.6 [facility] [place] Work Phone: Immature granulocytes/100 WBC (Bld) 0.700 % 0.0-0.9 [facility] [place] Work Phone: Comment on above: IG% - Immature Granu locytes (promyelocytes, myelocytes and metamyelocytes) > 1% indicates that a LEFT SHIFT is Present. MCH (RBC) [Entitic mass] 29.6 pg 27.0-32.0 [facility] [place] Work Phone: Nucleated RBC/100 WBC (Bld) [Ratio] 0 % 0-5 [facility] [place] Work Phone: MCHC Auto (RBC) [Mass/Vol]on 04-02-2022 MCHC (RBC) [Mass/Vol] 32.8 g/dL 32-36 [facility] [place] Work Phone: No Panel Informationon 04-02 Estimated GFR (MDRD) Amer 93 mL/min >60 [facility] [place] Work Phone: Comment on above: GFR Calc Estimated GFR (MDRD) Non-Af Amer 77 mL/min >60 [facility] [place] Work Phone: Comment on above: Non- GFR Calc Platelets bldon 04-02-2022 Platelets (Bld) [#/Vol] 495 10*3/uL 150-450 [facility] [place] Work Phone: Serum or plasma C reactive p rotein measurement (mass/volume)on 04-02-2022 CRP [Mass/Vol] 172.00 mg/L 0.0-3.0 [facility] [place] Work Phone: Comment on above: C-Reactive Protein ( CRP) provides useful information for thediagnosis, therapy and monitoring of inflammatory processesand associated diseases. For the evaluation of Relative Riskfor Cardiovascular Disease, a High Sensitivity CRP (HSCRP)should be ordered. Serum or plasma albumin silvino urement (mass/volume)on 04-02-2022 Albumin [Mass/Vol] 2.6 g/dL 3.2-5.0 [facility] Work Phone: Serum or plasma albumin/glob ulin mass ratioon 04-02-2022 Albumin/Globulin [Mass ratio] 0.5 {ratio} 0.9-2.4 [facility] [place] Work Phone: Serum or plasma calcium silvino urement (mass/volume)on 04-02-2022 Calcium [Mass/Vol] 9.0 mg/dL 8.5-10.1 [facility] Work Phone: Serum or plasma creatinine m easurement (mass/volume)on 04-02-2022 Creatinine [Mass/Vol] 0.87 mg/dL 0.55-1.02 [facility] [place] Work Phone: Comment on above: The validity of the calculated GFR & GFRAA in patients over 70 years has not been determined. Clinical correlation is essential. Serum or plasma urea nitroge n measurement (mass/volume)on 04-02-2022 Urea nitrogen [Mass/Vol] 4 mg/dL 7-18 [facility] [place] Work Phone: Thin prep Papanicolaou smear with manual screeningon 04-02-2022 Thin prep Papanicolaou smear with manual screening 25 U/L 15-37 [facility] [place] Work Phone: Thin prep Papanicolaou smear with manual screening 11 5-15 [facility] [place] Work Phone: Absolute lymphocyte counton 03-10-2022 Lymphocytes Auto (Unsp spec) [#/Vol] 0.77 10*3/uL 0.83-4.51 [facility] [place] Work Phone: Basophil percentageon 2021 Potassium [Moles/Vol] 3.4 mmol/L 3.5-5.1 [facility] [place] Work Phone: Basophils/100 WBC (Bld) 0.4 % 0-1 [facility] [place] Work Phone: Bilirubin [Mass/Vol] 1.30 mg/dL 0.20-1.00 [facility] [place] Work Phone: Comment on above: For patients on eltr ombopag therapy, use of Dimension [place] TBIL is not recommended. Chloride [Moles/Vol] 105 mmol/L 98-107 [facility] [place] Work Phone: Eosinophils/100 WBC (Bld) 0.0 % 0-5 [facility] [place] Work Phone: Glucose [Mass/Vol] 93 mg/dL 74-106 [facility] Work Phone: Neutrophils (Bld) [#/Vol] 4.1 10*3/uL 2.0-7.7 [facility] [place] Work Phone: Neutrophils/100 WBC (Bld) 74.2 % 47-70 [facility] [place] Work Phone: Protein [Mass/Vol] 5.9 g/dL 6.4-8.2 [facility] Work Phone: Sodium [Moles/Vol] 139 mmol/L 136-145 [facility] Work Phone: WBC (Bld) [#/Vol] 5.5 10*3/uL 4.4-11.0 [facility] Work Phone: Blood erythrocytes count (nu mber/volume)on 03-10-2022 RBC (Bld) [#/Vol] 3.19 10*6/uL 4.2-5.4 [facility] Work Phone: Blood hemoglobin measurement (mass/volume)on 03-10-2022 Hemoglobin (Bld) [Mass/Vol] 10.0 g/dL 12.0-15.0 [facility] [place] Work Phone: Blood lymphocytes/100 leukoc yteson 03-10-2022 Lymphocytes/100 WBC (Bld) 14.1 % 19-41 [facility] [place] Work Phone: Blood monocytes/100 leukocyt eson 03-10-2022 Monocytes/100 WBC (Bld) 10.8 % 0-10 [facility] [place] Work Phone: Blood platelet mean volumeon 03-10-2022 Platelet mean volume (Bld) [Entitic vol] 10.5 fL 6.2-12.0 [facility] [place] Work Phone: [phone] Determination of erythrocyte mean corpuscular volume (MCV)on 03-10-2022 MCV (RBC) [Entitic vol] 94.4 fL 81-99 [facility] [place] Work Phone: Hematocrit Auto (Bld) [Volum e fraction]on 03-10-2022 Hematocrit (Bld) [Volume fraction] 30.1 % 37-47 [facility] [place] Work Phone: Laboratory - Chemistry and C hemistry - challengeon 03-10-2022 ALP [Catalytic activity/Vol] 70 U/L 45-117 [facility] [place] Work Phone: ALT [Catalytic activity/Vol] 64 U/L 13-56 [facility] [place] Work Phone: CO2 [Moles/Vol] 27.0 mmol/L 21.0-32.0 [facility] [place] Work Phone: Globulin (S) [Mass/Vol] 3.4 g/dL 2.2-4.2 [facility] [place] Work Phone: Magnesium [Mass/Vol] 1.8 mg/dL 1.6-2.6 [facility] [place] Work Phone: Urea nitrogen/Creatinin e [Mass ratio] 5.1 mg/mg 10-20 [facility] [place] Work Phone: Laboratory - Hematology and Cell countson 03-10-2022 Erythrocyte distribution width (RBC) [Entitic vol] 60.7 fL 35.1-43.9 [facility] [place] Work Phone: Erythrocyte distribution width (RBC) [Ratio] 17.4 % 11.6-14.6 [facility] [place] Work Phone: Immature granulocytes/100 WBC (Bld) 0.500 % 0.0-0.9 [facility] [place] Work Phone: Comment on above: IG% - Immature Granu locytes (promyelocytes, myelocytes and metamyelocytes) > 1% indicates that a LEFT SHIFT is Present. MCH (RBC) [Entitic mass] 31.3 pg 27.0-32.0 [facility] [place] Work Phone: Nucleated RBC/100 WBC (Bld) [Ratio] 0 % 0-5 [facility] [place] Work Phone: MCHC Auto (RBC) [Mass/Vol]on 03-10-2022 MCHC (RBC) [Mass/Vol] 33.2 g/dL 32-36 [facility] [place] Work Phone: No Panel Informationon 03-10 Estimated Creatinine Clearance Calc 105.90 ml/min [facility] [place] Work Phone: Estimated GFR (MDRD) Amer 145 mL/min >60 [facility] [place] Work Phone: Comment on above: GFR Calc Estimated GFR (MDRD) Non-Af Amer 120 mL/min >60 [facility] [place] Work Phone: Comment on above: Non- GFR Calc Platelets bldon 03-10-2022 Platelets (Bld) [#/Vol] 177 10*3/uL 150-450 [facility] [place] Work Phone: Serum or plasma albumin silvino urement (mass/volume)on 03-10-2022 Albumin [Mass/Vol] 2.5 g/dL 3.2-5.0 [facility] Work Phone: Serum or plasma albumin/glob ulin mass ratioon 03-10-2022 Albumin/Globulin [Mass ratio] 0.7 {ratio} 0.9-2.4 [facility] [place] Work Phone: Serum or plasma calcium silvino urement (mass/volume)on 03-10-2022 Calcium [Mass/Vol] 8.4 mg/dL 8.5-10.1 [facility] Work Phone: Serum or plasma creatinine m easurement (mass/volume)on 03-10-2022 Creatinine [Mass/Vol] 0.59 mg/dL 0.55-1.02 [facility] [place] Work Phone: Comment on above: The validity of the calculated GFR & GFRAA in patients over 70 years has not been determined. Clinical correlation is essential. Serum or plasma urea nitroge n measurement (mass/volume)on 03-10-2022 Urea nitrogen [Mass/Vol] 3 mg/dL 7-18 [facility] [place] Work Phone: Thin prep Papanicolaou smear with manual screeningon 03-10-2022 Thin prep Papanicolaou smear with manual screening 51 U/L 15-37 [facility] [place] Work Phone: Thin prep Papanicolaou smear with manual screening 7 5-15 [facility] [place] Work Phone: Direct bilirubinon 2 Bilirubin.direct [Mass/Vol] 0.31 mg/dL 0.00-0.30 [facility] [place] Work Phone: INR in Blood by Coagulation assayon 03-08-2022 INR Coag (Bld) [Relative time] 1.0 {INR} [facility] [place] Work Phone: Laboratory - Chemistry and C hemistry - challengeon 03-08-2022 Lipase [Catalytic activity/Vol] 1591 U/L 73-393 [facility] [place] Work Phone: Laboratory - Coagulationon 0 03-08-2022 aPTT Coag (Bld) [Time] 25.7 s 24.1-36.2 [facility] [place] Work Phone: [phone] PT Coag (PPP) [Time] 13.3 s 11.7-14.9 [facility] [place] Work Phone: Absolute lymphocyte counton 03-05-2022 Lymphocytes Auto (Unsp spec) [#/Vol] 1.29 10*3/uL 0.83-4.51 [facility] [place] Work Phone: Basophil percentageon 2021 Basophil percentage 0-5 SEEN /hpf 0-5 [facility] [place] Work Phone: Basophils/100 WBC (Bld) 0.5 % 0-1 [facility] [place] Work Phone: Bilirubin [Mass/Vol] 2.40 mg/dL 0.20-1.00 [facility] [place] Work Phone: Comment on above: For patients on eltr ombopag therapy, use of Dimension [place] TBIL is not recommended. Chloride [Moles/Vol] 99 mmol/L 98-107 [facility] [place] Work Phone: Eosinophils/100 WBC (Bld) 0.0 % 0-5 [facility] [place] Work Phone: Glucose [Mass/Vol] 76 mg/dL 74-106 [facility] Work Phone: Neutrophils (Bld) [#/Vol] 4.6 10*3/uL 2.0-7.7 [facility] [place] Work Phone: Neutrophils/100 WBC (Bld) 71.0 % 47-70 [facility] [place] Work Phone: Potassium [Moles/Vol] 3.7 mmol/L 3.5-5.1 [facility] [place] Work Phone: Protein [Mass/Vol] 7.2 g/dL 6.4-8.2 [facility] Work Phone: [phone] Sodium [Moles/Vol] 135 mmol/L 136-145 [facility] Work Phone: WBC (Bld) [#/Vol] 6.5 10*3/uL 4.4-11.0 [facility] Work Phone: Beta hCG serum qualon 2021 Beta HCG ( test) Ql Negative [facility] [place] Work Phone: Bilirubin Test strip Ql (U)o n 03-05-2022 Bilirubin Ql (U) Negative Negative [facility] [place] Work Phone: [phone] Blood erythrocytes count (nu mber/volume)on 03-05-2022 RBC (Bld) [#/Vol] 4.26 10*6/uL 4.2-5.4 [facility] Work Phone: Blood hemoglobin measurement (mass/volume)on 03-05-2022 Hemoglobin (Bld) [Mass/Vol] 13.2 g/dL 12.0-15.0 [facility] [place] Work Phone: [phone] Blood lymphocytes/100 leukoc yteson 03-05-2022 Lymphocytes/100 WBC (Bld) 19.8 % 19-41 [facility] [place] Work Phone: Blood monocytes/100 leukocyt eson 03-05-2022 Monocytes/100 WBC (Bld) 8.4 % 0-10 [facility] [place] Work Phone: Blood platelet mean volumeon 03-05-2022 Platelet mean volume (Bld) [Entitic vol] 10.3 fL 6.2-12.0 [facility] [place] Work Phone: Determination of erythrocyte mean corpuscular volume (MCV)on 03-05-2022 MCV (RBC) [Entitic vol] 89.9 fL 81-99 [facility] [place] Work Phone: Direct bilirubinon 2 Bilirubin.direct [Mass/Vol] 0.82 mg/dL 0.00-0.30 [facility] Work Phone: Hematocrit Auto (Bld) [Volum e fraction]on 03-05-2022 Hematocrit (Bld) [Volume fraction] 38.3 % 37-47 [facility] [place] Work Phone: Ketones Test strip Ql (U)on 03-05-2022 Ketones Ql (U) 150 mg/dl Negative [facility] Work Phone: Comment on above: CRITICAL VALUE VERIF IED. CALLED TO MUSHTAQ LOERA RN (ER)03/05/221911 Tian Marvin.RESULTS READ BACK BY SAME . CRITICAL VALUE *H Laboratory - Chemistry and C hemistry - challengeon 03-05-2022 ALP [Catalytic activity/Vol] 115 U/L 45-117 [facility] Work Phone: ALT [Catalytic activity/Vol] 169 U/L 13-56 [facility] Work Phone: CO2 [Moles/Vol] 20.0 mmol/L 21.0-32.0 [facility] Work Phone: Globulin (S) [Mass/Vol] 3.8 g/dL 2.2-4.2 [facility] Work Phone: Lipase [Catalytic activity/Vol] 1043 U/L 73-393 [facility] [place] Work Phone: Urea nitrogen/Creatinin e [Mass ratio] 10.6 mg/mg 10-20 [facility] Work Phone: Laboratory - Drug toxicology on 03-05-2022 Amphetamines Ql (U) Negative <1000 ng/mL [facility] [place] Work Phone: Benzodiazepines Ql (U) Positive < 200 ng/mL [facility] [place] Work Phone: Cannabinoids Screen Ql (U) Negative < 50 ng/mL [facility] [place] Work Phone: Cocaine Ql (U) Negative < 300 ng/mL [facility] [place] Work Phone: Opiates Ql (U) Negative < 300 ng/mL [facility] [place] Work Phone: Laboratory - Hematology and Cell countson 03-05-2022 Erythrocyte distribution width (RBC) [Entitic vol] 57.1 fL 35.1-43.9 [facility] [place] Work Phone: Erythrocyte distribution width (RBC) [Ratio] 17.4 % 11.6-14.6 [facility] [place] Work Phone: Immature granulocytes/100 WBC (Bld) 0.300 % 0.0-0.9 [facility] [place] Work Phone: Comment on above: IG% - Immature Granu locytes (promyelocytes, myelocytes and metamyelocytes) > 1% indicates that a LEFT SHIFT is Present. MCH (RBC) [Entitic mass] 31.0 pg 27.0-32.0 [facility] [place] Work Phone: Nucleated RBC/100 WBC (Bld) [Ratio] 0 % 0-5 [facility] Work Phone: MCHC Auto (RBC) [Mass/Vol]on 03-05-2022 MCHC (RBC) [Mass/Vol] 34.5 g/dL 32-36 [facility] Work Phone: Mucus LM Ql (Urine sed)on Mucus Ql (Urine sed) 0 SEEN /hpf [facility] Work Phone: Nitrite Test strip Ql (U)on 03-05-2022 Nitrite Ql (U) Negative Negative [facility] Work Phone: No Panel Informationon 03-05 Ethyl Alcohol Level 7.0 mg/dL [facility] Work Phone: Comment on above: The serum:whole bloo d ethanol ratio is approximately 1.14and varies slightly with hematocrit. Medical Alcohol reference interval and critical value innon-tolerant individuals; 50 - 100 Impairment 100 Intoxication 100 - 250 Severe Poisoning 250 - 400 Deep/possible fatal coma MDMA (Ecstasy) Screen Negative < 500 ng/mL [facility] Work Phone: Urine Barbiturates Screen Negative < 200 ng/mL [facility] Work Phone: Urine Drug Screen Comment [facility] Work Phone: Comment on above: CONFIRMATORY TESTING [...] Urine Methadone Screen Negative < 300 ng/mL [facility] [place] Work Phone: Estimated Creatinine Clearance Calc 73.51 ml/min [facility] Work Phone: Estimated GFR (MDRD) Amer 95 mL/min >60 [facility] [place] Work Phone: Comment on above: GFR Calc Estimated GFR (MDRD) Non-Af Amer 79 mL/min >60 [facility] [place] Work Phone: Comment on above: Non- GFR Calc Platelets bldon 03-05-2022 Platelets (Bld) [#/Vol] 221 10*3/uL 150-450 [facility] [place] Work Phone: Protein Test strip Ql (U)on 03-05-2022 Protein Ql (U) 15 mg/dl Negative [facility] [place] Work Phone: Serum or plasma albumin silvino urement (mass/volume)on 03-05-2022 Albumin [Mass/Vol] 3.4 g/dL 3.2-5.0 [facility] Work Phone: Serum or plasma calcium silvino urement (mass/volume)on 03-05-2022 Calcium [Mass/Vol] 9.5 mg/dL 8.5-10.1 [facility] Work Phone: Serum or plasma creatinine m easurement (mass/volume)on 03-05-2022 Creatinine [Mass/Vol] 0.85 mg/dL 0.55-1.02 [facility] [facility] [place] Work Phone: Comment on above: The validity of the calculated GFR & GFRAA in patients over 70 years has not been determined. Clinical correlation is essential. Serum or plasma urea nitroge n measurement (mass/volume)on 03-05-2022 Urea nitrogen [Mass/Vol] 9 mg/dL 7-18 [facility] [place] Work Phone: Squamous epithelial cells de tection in urine sediment by light microscopyon 03-05-2022 Epithelial cells.squamous LM Ql (Urine sed) 0-5 SEEN /hpf 5-10 [facility] [place] Work Phone: Thin prep Papanicolaou smear with manual screeningon 03-05-2022 Thin prep Papanicolaou smear with manual screening 352 U/L 15-37 [facility] [place] Work Phone: Thin prep Papanicolaou smear with manual screening 16 5-15 [facility] [place] Work Phone: Urine blood detectionon 02-09 RBC Ql (U) 25 /ul Negative [facility] [place] Work Phone: RBC Ql (U) 0-5 SEEN /hpf 0-5 [facility] [place] Work Phone: Urine clarityon 03-05-2022 Clarity (U) Clear Clear [facility] [place] Work Phone: Urine color determinationon 03-05-2022 Color (U) Yellow Yellow [facility] [place] Work Phone: Urine glucose detectionon Glucose Ql (U) Normal mg/dl Normal [facility] [place] Work Phone: Urine leukocyte esterase det ection by dipstickon 03-05-2022 Leukocyte esterase Test strip Ql (U) 25 /ul Negative [facility] [place] Work Phone: Urine pHon 03-05-2022 pH (U) 6.0 [pH] 5.0 - 8.0 [facility] [place] Work Phone: Urine phencyclidine (PCP) de tectionon 03-05-2022 Phencyclidine Ql (U) Negative < 25 ng/mL [facility] [place] Work Phone: Urine sediment bacteria coun t by microscopy (number/high power field)on 03-05-2022 Bacteria LM.HPF (Urine sed) [#/Area] 1 /[HPF] None Seen [facility] [place] Work Phone: Urine specific gravity measu rementon 03-05-2022 Specific gravity (U) [Rel density] 1.015 1.002-1.030 [facility] [place] Work Phone: Urobilinogen Auto test strip Ql (U)on 03-05-2022 Urobilinogen Ql (U) Normal mg/dl Normal [facility] [place] Work Phone: Absolute lymphocyte counton 01-05-2022 Lymphocytes Auto (Unsp spec) [#/Vol] 1.91 10*3/uL 0.83-4.51 [facility] [place] Work Phone: Basophil percentageon 2021 Lactate [Moles/Vol] 1.1 mmol/L 0.4-2.0 [facility] [place] Work Phone: Basophil percentage 0-5 SEEN /hpf 0-5 [facility] [place] Work Phone: Basophils/100 WBC (Bld) 0.2 % 0-1 [facility] [place] Work Phone: Bilirubin [Mass/Vol] 1.30 mg/dL 0.20-1.00 [facility] [place] Work Phone: Comment on above: For patients on eltr ombopag therapy, use of Dimension [place] TBIL is not recommended. Chloride [Moles/Vol] 97 mmol/L 98-107 [facility] [place] Work Phone: Eosinophils/100 WBC (Bld) 0.0 % 0-5 [facility] [place] Work Phone: Glucose [Mass/Vol] 96 mg/dL 74-106 [facility] Work Phone: Neutrophils (Bld) [#/Vol] 5.8 10*3/uL 2.0-7.7 [facility] [place] Work Phone: Neutrophils/100 WBC (Bld) 67.0 % 47-70 [facility] [place] Work Phone: Potassium [Moles/Vol] 3.1 mmol/L 3.5-5.1 [facility] [place] Work Phone: Comment on above: Moderate Hemolysis, Result may be falsely increased. Protein [Mass/Vol] 8.9 g/dL 6.4-8.2 [facility] Work Phone: [phone] Sodium [Moles/Vol] 132 mmol/L 136-145 [facility] Work Phone: WBC (Bld) [#/Vol] 8.6 10*3/uL 4.4-11.0 [facility] Work Phone: Beta hCG serum qualon 2021 Beta HCG ( test) Ql Negative [facility] [place] Work Phone: Bilirubin Test strip Ql (U)o n 01-05-2022 Bilirubin Ql (U) Negative Negative [facility] [place] Work Phone: Blood erythrocytes count (nu mber/volume)on 01-05-2022 RBC (Bld) [#/Vol] 6.16 10*6/uL 4.2-5.4 [facility] Work Phone: Blood hemoglobin measurement (mass/volume)on 01-05-2022 Hemoglobin (Bld) [Mass/Vol] 16.9 g/dL 12.0-15.0 [facility] [place] Work Phone: Blood lymphocytes/100 leukoc yteson 01-05-2022 Lymphocytes/100 WBC (Bld) 22.1 % 19-41 [facility] Work Phone: Blood monocytes/100 leukocyt eson 01-05-2022 Monocytes/100 WBC (Bld) 10.4 % 0-10 [facility] [place] Work Phone: Blood platelet mean volumeon 01-05-2022 Platelet mean volume (Bld) [Entitic vol] 11.3 fL 6.2-12.0 [facility] [place] Work Phone: Determination of erythrocyte mean corpuscular volume (MCV)on 01-05-2022 MCV (RBC) [Entitic vol] 80.7 fL 81-99 [facility] [place] Work Phone: Direct bilirubinon 2 Bilirubin.direct [Mass/Vol] 0.12 mg/dL 0.00-0.30 [facility] [place] Work Phone: Hematocrit Auto (Bld) [Volum e fraction]on 01-05-2022 Hematocrit (Bld) [Volume fraction] 49.7 % 37-47 [facility] [place] Work Phone: Ketones Test strip Ql (U)on 01-05-2022 Ketones Ql (U) 150 mg/dl Negative [facility] [place] Work Phone: Comment on above: CRITICAL VALUE *H Laboratory - Chemistry and C hemistry - challengeon 01-05-2022 ALP [Catalytic activity/Vol] 68 U/L 45-117 [facility] [place] Work Phone: ALT [Catalytic activity/Vol] 37 U/L 13-56 [facility] [place] Work Phone: CO2 [Moles/Vol] 21.0 mmol/L 21.0-32.0 [facility] [place] Work Phone: [phone] Globulin (S) [Mass/Vol] 4.6 g/dL 2.2-4.2 [facility] [place] Work Phone: Lipase [Catalytic activity/Vol] 718 U/L 73-393 [facility] [place] Work Phone: Urea nitrogen/Creatinin e [Mass ratio] 7.5 mg/mg 10-20 [facility] [place] Work Phone: Laboratory - Drug toxicology on 01-05-2022 Amphetamines Ql (U) Negative <1000 ng/mL [facility] [place] Work Phone: Benzodiazepines Ql (U) Positive < 200 ng/mL [facility] [place] Work Phone: Cannabinoids Screen Ql (U) Negative < 50 ng/mL [facility] [place] Work Phone: Cocaine Ql (U) Negative < 300 ng/mL [facility] [place] Work Phone: Opiates Ql (U) Negative < 300 ng/mL [facility] [place] Work Phone: Laboratory - Hematology and Cell countson 01-05-2022 Erythrocyte distribution width (RBC) [Entitic vol] 46.0 fL 35.1-43.9 [facility] [place] Work Phone: Erythrocyte distribution width (RBC) [Ratio] 17.0 % 11.6-14.6 [facility] [place] Work Phone: Immature granulocytes/100 WBC (Bld) 0.300 % 0.0-0.9 [facility] [place] Work Phone: Comment on above: IG% - Immature Granu locytes (promyelocytes, myelocytes and metamyelocytes) > 1% indicates that a LEFT SHIFT is Present. MCH (RBC) [Entitic mass] 27.4 pg 27.0-32.0 [facility] [place] Work Phone: Nucleated RBC/100 WBC (Bld) [Ratio] 0 % 0-5 [facility] [place] Work Phone: MCHC Auto (RBC) [Mass/Vol]on 01-05-2022 MCHC (RBC) [Mass/Vol] 34.0 g/dL 32-36 [facility] [place] Work Phone: Mucus LM Ql (Urine sed)on Mucus Ql (Urine sed) 0 SEEN /hpf [facility] [place] Work Phone: Nitrite Test strip Ql (U)on 01-05-2022 Nitrite Ql (U) Negative Negative [facility] [place] Work Phone: No Panel Informationon 01-05 Ethyl Alcohol Level < 3.0 mg/dL [facility] [place] Work Phone: Comment on above: The serum:whole bloo d ethanol ratio is approximately 1.14and varies slightly with hematocrit. Medical Alcohol reference interval and critical value innon-tolerant individuals; 50 - 100 Impairment 100 Intoxication 100 - 250 Severe Poisoning 250 - 400 Deep/possible fatal coma Estimated Creatinine Clearance Calc 58.39 ml/min [facility] [place] Work Phone: Estimated GFR (MDRD) Amer 73 mL/min >60 [facility] [place] Work Phone: Comment on above: GFR Calc Estimated GFR (MDRD) Non-Af Amer 61 mL/min >60 [facility] [place] Work Phone: Comment on above: Non- GFR Calc MDMA (Ecstasy) Screen Negative < 500 ng/mL [facility] [place] Work Phone: Urine Barbiturates Screen Negative < 200 ng/mL [facility] [place] Work Phone: Urine Drug Screen Comment [facility] [place] Work Phone: Comment on above: CONFIRMATORY TESTING [...] Urine Methadone Screen Negative < 300 ng/mL [facility] [place] Work Phone: Platelets bldon 01-05-2022 Platelets (Bld) [#/Vol] 255 10*3/uL 150-450 [facility] [place] Work Phone: Protein Test strip Ql (U)on 01-05-2022 Protein Ql (U) 15 mg/dl Negative [facility] [place] Work Phone: Serum or plasma albumin silvino urement (mass/volume)on 01-05-2022 Albumin [Mass/Vol] 4.3 g/dL 3.2-5.0 [facility] Work Phone: Serum or plasma calcium silvino urement (mass/volume)on 01-05-2022 Calcium [Mass/Vol] 9.9 mg/dL 8.5-10.1 [facility] Work Phone: Serum or plasma creatinine m easurement (mass/volume)on 01-05-2022 Creatinine [Mass/Vol] 1.07 mg/dL 0.55-1.02 [facility] [place] Work Phone: Comment on above: The validity of the calculated GFR & GFRAA in patients over 70 years has not been determined. Clinical correlation is essential. Serum or plasma urea nitroge n measurement (mass/volume)on 01-05-2022 Urea nitrogen [Mass/Vol] 8 mg/dL 7-18 [facility] [place] Work Phone: Squamous epithelial cells de tection in urine sediment by light microscopyon 01-05-2022 Epithelial cells.squamous LM Ql (Urine sed) 0 SEEN /hpf 5-10 [facility] [place] Work Phone: Thin prep Papanicolaou smear with manual screeningon 01-05-2022 Thin prep Papanicolaou smear with manual screening 45 U/L 15-37 [facility] [place] Work Phone: Comment on above: Moderate Hemolysis, Result may be falsely increased. Thin prep Papanicolaou smear with manual screening 14 5-15 [facility] [place] Work Phone: Urine blood detectionon 12-10 RBC Ql (U) Negative Negative [facility] [place] Work Phone: RBC Ql (U) 0 SEEN /hpf 0-5 [facility] [place] Work Phone: Urine clarityon 01-05-2022 Clarity (U) Clear Clear [facility] [place] Work Phone: Urine color determinationon 01-05-2022 Color (U) Yellow Yellow [facility] [place] Work Phone: Urine glucose detectionon Glucose Ql (U) Normal mg/dl Normal [facility] [place] Work Phone: Urine leukocyte esterase det ection by dipstickon 01-05-2022 Leukocyte esterase Test strip Ql (U) 25 /ul Negative [facility] [place] Work Phone: Urine pHon 01-05-2022 pH (U) 6.0 [pH] 5.0 - 8.0 [facility] [place] Work Phone: Comment on above: RESULTS CALLED TO ED GIOVANI 01/05/222215 Cristiane Zhang.REPORT READ BACK BY . Urine phencyclidine (PCP) de tectionon 01-05-2022 Phencyclidine Ql (U) Negative < 25 ng/mL [facility] [place] Work Phone: Urine sediment bacteria coun t by microscopy (number/high power field)on 01-05-2022 Bacteria LM.HPF (Urine sed) [#/Area] 0 /[HPF] None Seen [facility] [place] Work Phone: Urine specific gravity measu rementon 01-05-2022 Specific gravity (U) [Rel density] 1.015 1.002-1.030 [facility] [place] Work Phone: Urobilinogen Auto test strip Ql (U)on 01-05-2022 Urobilinogen Ql (U) Normal mg/dl Normal [facility] [place] Work Phone: Absolute lymphocyte counton 12-31-2021 Lymphocytes Auto (Unsp spec) [#/Vol] 1.33 10*3/uL 0.83-4.51 [facility] [place] Work Phone: Basophil percentageon 2021 Basophil percentage 0-5 SEEN /hpf 0-5 [facility] [place] Work Phone: Basophils/100 WBC (Bld) 0.1 % 0-1 [facility] [place] Work Phone: Bilirubin [Mass/Vol] 1.20 mg/dL 0.20-1.00 [facility] [place] Work Phone: Comment on above: For patients on eltr ombopag therapy, use of Dimension [place] TBIL is not recommended. Chloride [Moles/Vol] 102 mmol/L 98-107 [facility] [place] Work Phone: Eosinophils/100 WBC (Bld) 0.0 % 0-5 [facility] [place] Work Phone: Glucose [Mass/Vol] 86 mg/dL 74-106 [facility] Work Phone: Neutrophils (Bld) [#/Vol] 6.5 10*3/uL 2.0-7.7 [facility] [place] Work Phone: Neutrophils/100 WBC (Bld) 75.4 % 47-70 [facility] [place] Work Phone: Potassium [Moles/Vol] 3.5 mmol/L 3.5-5.1 [facility] [place] Work Phone: Comment on above: Moderate Hemolysis, Result may be falsely increased. Protein [Mass/Vol] 8.1 g/dL 6.4-8.2 [facility] Work Phone: Sodium [Moles/Vol] 134 mmol/L 136-145 [facility] Work Phone: WBC (Bld) [#/Vol] 8.6 10*3/uL 4.4-11.0 [facility] Work Phone: Bilirubin Test strip Ql (U)o n 12-31-2021 Bilirubin Ql (U) Negative Negative [facility] [place] Work Phone: Blood erythrocytes count (nu mber/volume)on 12-31-2021 RBC (Bld) [#/Vol] 5.26 10*6/uL 4.2-5.4 [facility] Work Phone: Blood hemoglobin measurement (mass/volume)on 12-31-2021 Hemoglobin (Bld) [Mass/Vol] 14.6 g/dL 12.0-15.0 [facility] [place] Work Phone: Blood lymphocytes/100 leukoc yteson 12-31-2021 Lymphocytes/100 WBC (Bld) 15.6 % 19-41 [facility] [place] Work Phone: Blood monocytes/100 leukocyt eson 12-31-2021 Monocytes/100 WBC (Bld) 8.5 % 0-10 [facility] [place] Work Phone: Blood platelet mean volumeon 12-31-2021 Platelet mean volume (Bld) [Entitic vol] 11.0 fL 6.2-12.0 [facility] [place] Work Phone: Determination of erythrocyte mean corpuscular volume (MCV)on 12-31-2021 MCV (RBC) [Entitic vol] 81.2 fL 81-99 [facility] [place] Work Phone: Hematocrit Auto (Bld) [Volum e fraction]on 12-31-2021 Hematocrit (Bld) [Volume fraction] 42.7 % 37-47 [facility] [place] Work Phone: Ketones Test strip Ql (U)on 12-31-2021 Ketones Ql (U) 150 mg/dl Negative [facility] [place] Work Phone: Comment on above: CRITICAL VALUE *H Laboratory - Chemistry and C hemistry - challengeon 12-31-2021 HCG ( test) Ql (U) Negative [facility] [place] Work Phone: Comment on above: Very dilute urine sp ecimens, as indicated by a low specificgravity, may not contain business process representative levels of hCG. If is still suspected, a first morning urinespecimen should be collected 48 hours later and tested. ALP [Catalytic activity/Vol] 75 U/L 45-117 [facility] [place] Work Phone: ALT [Catalytic activity/Vol] 31 U/L 13-56 [facility] [place] Work Phone: CO2 [Moles/Vol] 14.0 mmol/L 21.0-32.0 [facility] [place] Work Phone: Globulin (S) [Mass/Vol] 4.1 g/dL 2.2-4.2 [facility] [place] Work Phone: Lipase [Catalytic activity/Vol] 335 U/L 73-393 [facility] [place] Work Phone: Urea nitrogen/Creatinin e [Mass ratio] 5.9 mg/mg 10-20 [facility] [place] Work Phone: Laboratory - Hematology and Cell countson 12-31-2021 Erythrocyte distribution width (RBC) [Entitic vol] 44.8 fL 35.1-43.9 [facility] [place] Work Phone: Erythrocyte distribution width (RBC) [Ratio] 15.8 % 11.6-14.6 [facility] [place] Work Phone: Immature granulocytes/100 WBC (Bld) 0.400 % 0.0-0.9 [facility] [place] Work Phone: Comment on above: IG% - Immature Granu locytes (promyelocytes, myelocytes and metamyelocytes) > 1% indicates that a LEFT SHIFT is Present. MCH (RBC) [Entitic mass] 27.8 pg 27.0-32.0 [facility] [place] Work Phone: Nucleated RBC/100 WBC (Bld) [Ratio] 0 % 0-5 [facility] [place] Work Phone: MCHC Auto (RBC) [Mass/Vol]on 12-31-2021 MCHC (RBC) [Mass/Vol] 34.2 g/dL 32-36 [facility] [place] Work Phone: Mucus LM Ql (Urine sed)on Mucus Ql (Urine sed) 0 SEEN /hpf [facility] [place] Work Phone: Nitrite Test strip Ql (U)on 12-31-2021 Nitrite Ql (U) Negative Negative [facility] [place] Work Phone: No Panel Informationon 12-31 D-Dimer Quantitative (PE/DVT) 0.35 FEU/ug/m 0.27-0.49 [facility] [place] Work Phone: Comment on above: NORMAL D-Dimer level (<0.50) indicates no DVT or PE. Estimated Creatinine Clearance Calc 61.25 ml/min [facility] [place] Work Phone: Estimated GFR (MDRD) Amer 77 mL/min >60 [facility] [place] Work Phone: Comment on above: GFR Calc Estimated GFR (MDRD) Non-Af Amer 64 mL/min >60 [facility] [place] Work Phone: Comment on above: Non- GFR Calc Troponin I High Sensitivity < 3 pg/mL 3.0-54.0 [facility] [place] Work Phone: Comment on above: Please Note: New Maira t Units and Gender Specific Reference Ranges. For more information see Policy Stat Procedure [place] High Sensitivity Troponin (TNIH) and attachments. Platelets bldon 12-31-2021 Platelets (Bld) [#/Vol] 290 10*3/uL 150-450 [facility] [place] Work Phone: Protein Test strip Ql (U)on 12-31-2021 Protein Ql (U) 30 mg/dl Negative [facility] [place] Work Phone: Serum or plasma albumin silvino urement (mass/volume)on 12-31-2021 Albumin [Mass/Vol] 4.0 g/dL 3.2-5.0 [facility] Work Phone: Serum or plasma albumin/glob ulin mass ratioon 12-31-2021 Albumin/Globulin [Mass ratio] 1.0 {ratio} 0.9-2.4 [facility] [place] Work Phone: Serum or plasma calcium silvino urement (mass/volume)on 12-31-2021 Calcium [Mass/Vol] 10.2 mg/dL 8.5-10.1 [facility] Work Phone: Serum or plasma creatinine m easurement (mass/volume)on 12-31-2021 Creatinine [Mass/Vol] 1.02 mg/dL 0.55-1.02 [facility] [place] Work Phone: Comment on above: The validity of the calculated GFR & GFRAA in patients over 70 years has not been determined. Clinical correlation is essential. Serum or plasma urea nitroge n measurement (mass/volume)on 12-31-2021 Urea nitrogen [Mass/Vol] 6 mg/dL 7-18 [facility] [place] Work Phone: Squamous epithelial cells de tection in urine sediment by light microscopyon 12-31-2021 Epithelial cells.squamous LM Ql (Urine sed) 0-5 SEEN /hpf 5-10 [facility] [place] Work Phone: Thin prep Papanicolaou smear with manual screeningon 12-31-2021 Thin prep Papanicolaou smear with manual screening 26 U/L 15-37 [facility] [place] Work Phone: Comment on above: Moderate Hemolysis, Result may be falsely increased. Thin prep Papanicolaou smear with manual screening 18 5-15 [facility] [place] Work Phone: Urine blood detectionon 12-10 RBC Ql (U) 10 /ul Negative [facility] [place] Work Phone: RBC Ql (U) 0 SEEN /hpf 0-5 [facility] [place] Work Phone: Urine clarityon 12-31-2021 Clarity (U) Clear Clear [facility] [place] Work Phone: Urine color determinationon 12-31-2021 Color (U) Yellow Yellow [facility] [place] Work Phone: Urine glucose detectionon Glucose Ql (U) Normal mg/dl Normal [facility] [place] Work Phone: Urine leukocyte esterase det ection by dipstickon 12-31-2021 Leukocyte esterase Test strip Ql (U) 25 /ul Negative [facility] [place] Work Phone: Urine pHon 12-31-2021 pH (U) 6.0 [pH] 5.0 - 8.0 [facility] [place] Work Phone: Urine sediment bacteria coun t by microscopy (number/high power field)on 12-31-2021 Bacteria LM.HPF (Urine sed) [#/Area] RARE /hpf None Seen [facility] [place] Work Phone: Urine specific gravity measu rementon 12-31-2021 Specific gravity (U) [Rel density] 1.020 1.002-1.030 [facility] [place] Work Phone: [phone] Urobilinogen Auto test strip Ql (U)on 12-31-2021 Urobilinogen Ql (U) Normal mg/dl Normal [facility] [place] Work Phone: [phone] Absolute lymphocyte counton 12-28-2021 Lymphocytes Auto (Unsp spec) [#/Vol] 1.04 10*3/uL 0.83-4.51 [facility] [place] Work Phone: [phone] Amorphous sediment detection in urine sediment by light microscopyon 12-28-2021 Amorphous sediment LM Ql (Urine sed) 2+ URATE [facility] [place] Work Phone: Basophil percentageon 2021 Basophil percentage 10-25 SEEN /hpf 0-5 [facility] [place] Work Phone: Basophils/100 WBC (Bld) 0.5 % 0-1 [facility] [facility] [place] Work Phone: [phone] Bilirubin [Mass/Vol] 1.30 mg/dL 0.20-1.00 [facility] [place] Work Phone: [phone] Comment on above: For patients on eltr ombopag therapy, use of Dimension [place] TBIL is not recommended. Chloride [Moles/Vol] 98 mmol/L 98-107 [facility] [place] Work Phone: Eosinophils/100 WBC (Bld) 0.0 % 0-5 [facility] [place] Work Phone: Glucose [Mass/Vol] 88 mg/dL 74-106 [facility] Work Phone: Neutrophils (Bld) [#/Vol] 2.8 10*3/uL 2.0-7.7 [facility] [place] Work Phone: Neutrophils/100 WBC (Bld) 66.6 % 47-70 [facility] [place] Work Phone: Potassium [Moles/Vol] 3.3 mmol/L 3.5-5.1 [facility] [place] Work Phone: [phone] Protein [Mass/Vol] 8.2 g/dL 6.4-8.2 [facility] Work Phone: Sodium [Moles/Vol] 138 mmol/L 136-145 [facility] Work Phone: WBC (Bld) [#/Vol] 4.2 10*3/uL 4.4-11.0 [facility] Work Phone: Beta hCG serum qualon 2021 Beta HCG ( test) Ql Negative [facility] [place] Work Phone: Bilirubin Test strip Ql (U)o n 12-28-2021 Bilirubin Ql (U) 1 mg/dL Negative [facility] [place] Work Phone: Comment on above: COLOR OF URINE MAY A FFECT DIPSTICK RESULTS. Blood erythrocytes count (nu mber/volume)on 12-28-2021 RBC (Bld) [#/Vol] 5.23 10*6/uL 4.2-5.4 [facility] Work Phone: Blood hemoglobin measurement (mass/volume)on 12-28-2021 Hemoglobin (Bld) [Mass/Vol] 14.5 g/dL 12.0-15.0 [facility] [place] Work Phone: Blood lymphocytes/100 leukoc yteson 12-28-2021 Lymphocytes/100 WBC (Bld) 24.8 % 19-41 [facility] [place] Work Phone: [phone] Blood monocytes/100 leukocyt eson 12-28-2021 Monocytes/100 WBC (Bld) 7.6 % 0-10 [facility] [place] Work Phone: Blood platelet mean volumeon 12-28-2021 Platelet mean volume (Bld) [Entitic vol] 10.7 fL 6.2-12.0 [facility] [place] Work Phone: Culture, urineon 12-28-2021 Bacteria identified Cx Nom (U) Escherichia coli [facility] [place] Work Phone: Determination of erythrocyte mean corpuscular volume (MCV)on 12-28-2021 MCV (RBC) [Entitic vol] 82.0 fL 81-99 [facility] [place] Work Phone: Hematocrit Auto (Bld) [Volum e fraction]on 12-28-2021 Hematocrit (Bld) [Volume fraction] 42.9 % 37-47 [facility] [place] Work Phone: Ketones Test strip Ql (U)on 12-28-2021 Ketones Ql (U) 150 mg/dl Negative [facility] [place] Work Phone: Comment on above: CRITICAL VALUE VERIF IED. CALLED TO GIOVANI BRAN RN [id number] Eddie Deng.RESULTS READ BACK BY SAME . CRITICAL VALUE *H Laboratory - Chemistry and C hemistry - challengeon 12-28-2021 ALP [Catalytic activity/Vol] 87 U/L 45-117 [facility] [place] Work Phone: ALT [Catalytic activity/Vol] 43 U/L 13-56 [facility] [place] Work Phone: CO2 [Moles/Vol] 25.0 mmol/L 21.0-32.0 [facility] [place] Work Phone: Globulin (S) [Mass/Vol] 4.1 g/dL 2.2-4.2 [facility] [place] Work Phone: Urea nitrogen/Creatinin e [Mass ratio] 11.9 mg/mg 10-20 [facility] [place] Work Phone: Laboratory - Hematology and Cell countson 12-28-2021 Erythrocyte distribution width (RBC) [Entitic vol] 45.5 fL 35.1-43.9 [facility] [place] Work Phone: Erythrocyte distribution width (RBC) [Ratio] 15.4 % 11.6-14.6 [facility] [place] Work Phone: Immature granulocytes/100 WBC (Bld) 0.500 % 0.0-0.9 [facility] [place] Work Phone: Comment on above: IG% - Immature Granu locytes (promyelocytes, myelocytes and metamyelocytes) > 1% indicates that a LEFT SHIFT is Present. MCH (RBC) [Entitic mass] 27.7 pg 27.0-32.0 [facility] [place] Work Phone: Nucleated RBC/100 WBC (Bld) [Ratio] 0 % 0-5 [facility] [place] Work Phone: MCHC Auto (RBC) [Mass/Vol]on 12-28-2021 MCHC (RBC) [Mass/Vol] 33.8 g/dL 32-36 [facility] [place] Work Phone: Mucus LM Ql (Urine sed)on Mucus Ql (Urine sed) 0 SEEN /hpf [facility] [place] Work Phone: Nitrite Test strip Ql (U)on 12-28-2021 Nitrite Ql (U) Negative Negative [facility] [place] Work Phone: No Panel Informationon 12-28 Estimated Creatinine Clearance Calc 61.86 ml/min [facility] [place] Work Phone: Estimated GFR (MDRD) Amer 78 mL/min >60 [facility] [place] Work Phone: Comment on above: GFR Calc Estimated GFR (MDRD) Non-Af Amer 65 mL/min >60 [facility] [place] Work Phone: Comment on above: Non- GFR Calc Platelets bldon 12-28-2021 Platelets (Bld) [#/Vol] 330 10*3/uL 150-450 [facility] [place] Work Phone: Protein Test strip Ql (U)on 12-28-2021 Protein Ql (U) 30 mg/dl Negative [facility] [place] Work Phone: Serum or plasma albumin silvino urement (mass/volume)on 12-28-2021 Albumin [Mass/Vol] 4.1 g/dL 3.2-5.0 [facility] Work Phone: Serum or plasma albumin/glob ulin mass ratioon 12-28-2021 Albumin/Globulin [Mass ratio] 1.0 {ratio} 0.9-2.4 [facility] [place] Work Phone: Serum or plasma calcium silvino urement (mass/volume)on 12-28-2021 Calcium [Mass/Vol] 9.6 mg/dL 8.5-10.1 [facility] Work Phone: Serum or plasma creatinine m easurement (mass/volume)on 12-28-2021 Creatinine [Mass/Vol] 1.01 mg/dL 0.55-1.02 [facility] [place] Work Phone: Comment on above: The validity of the calculated GFR & GFRAA in patients over 70 years has not been determined. Clinical correlation is essential. Serum or plasma urea nitroge n measurement (mass/volume)on 12-28-2021 Urea nitrogen [Mass/Vol] 12 mg/dL 7-18 [facility] [place] Work Phone: Squamous epithelial cells de tection in urine sediment by light microscopyon 12-28-2021 Epithelial cells.squamous LM Ql (Urine sed) 0-5 SEEN /hpf 5-10 [facility] [place] Work Phone: Thin prep Papanicolaou smear with manual screeningon 12-28-2021 Thin prep Papanicolaou smear with manual screening 34 U/L 15-37 [facility] [place] Work Phone: Thin prep Papanicolaou smear with manual screening 15 5-15 [facility] [place] Work Phone: Urine blood detectionon 12-10 RBC Ql (U) 25 /ul Negative [facility] [place] Work Phone: RBC Ql (U) 0-5 SEEN /hpf 0-5 [facility] [place] Work Phone: Urine clarityon 12-28-2021 Clarity (U) Cloudy Clear [facility] [place] Work Phone: Urine color determinationon 12-28-2021 Color (U) Yellow Yellow [facility] [place] Work Phone: Urine glucose detectionon Glucose Ql (U) Normal mg/dl Normal [facility] [place] Work Phone: Urine leukocyte esterase det ection by dipstickon 12-28-2021 Leukocyte esterase Test strip Ql (U) 100 /ul Negative [facility] [place] Work Phone: Urine pHon 12-28-2021 pH (U) 6.0 [pH] 5.0 - 8.0 [facility] [place] Work Phone: Urine sediment bacteria coun t by microscopy (number/high power field)on 12-28-2021 Bacteria LM.HPF (Urine sed) [#/Area] 3 /[HPF] None Seen [facility] [place] Work Phone: Urine specific gravity measu rementon 12-28-2021 Specific gravity (U) [Rel density] 1.025 1.002-1.030 [facility] [place] Work Phone: Urobilinogen Auto test strip Ql (U)on 12-28-2021 Urobilinogen Ql (U) 1 mg/dl Normal [facility] [place] Work Phone: CNPNon 05-18-2021 CNPN Telephone (HLEMAD) -------- TAYA VIVEROS ([id number]) 1980 F [facility] Date Time Provider Department 05/18/21 YOLANDA [...] complicating [O99.330]11/03/2014 Previous delivery affecting *11/03/2014 control [GMD2310] 11/03/2014 History of depression [Z86.59] 11/03/2014 11/03/2014 Anxiety [F41.9] 11/03/2014 Grand multipara [Z64.1] 11/25/2014 Supervision of other high-risk [O09.8*01/26/2015 Depression [F32.A] 03/06/2015 Encounter Status:Closed by YOLANDA NAGEL on 05/18/21 [facility] 05-16-2021 [facility] Telephone ([facility]LEMAD) -------- TAYA VIVEROS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 temperature 96.8 [degF] Dr. Mikaela Chavarria Work Phone: [facility] Work Phone: 04-02-2022 15:00-0400 Diastolic blood pressure 82 mm[Hg] Dr. Mikaela Chavarria Work Phone: [facility] Work Phone: 04-02-2022 15:00-0400 Heart rate 104 /min Dr. Mikaela Chavarria Work Phone: [facility] Work Phone: 04-02-2022 15:00-0400 Respiratory rate 18 /min Dr. Mikaela Chavarria Work Phone: [facility] Work Phone: 04-02-2022 15:00-0400 SaO2% (BldA) [Mass fraction] 100 % Dr. Mikaela Chavarria Work Phone: [facility] Work Phone: 04-02-2022 15:00-0400 Systolic blood pressure 112 mm[Hg] Dr. Mikaela Chavarria Work Phone: [facility] Work Phone: 04-02-2022 14:47-0400 Body height 160.[address] Mikaela Chavarria Work Phone: [facility] Work Phone: 04-02-2022 14:47-0400 Body mass index (BMI) [Ratio] 25.7 kg/m2 Dr. Mikaela Chavarria Work Phone: [facility] Work Phone: 04-02-2022 14:47-0400 Body weight 65.[address] Mikaela Chavarria Work Phone: [facility] Work Phone: 03-10-2022 14:40-0400 Body temperature 98.8 [degF] Dr. Mikaela Chavarria Work Phone: [facility] Work Phone: 03-10-2022 14:40-0400 Diastolic blood pressure 65 mm[Hg] Dr. Mikaela Chavarria Work Phone: [facility] Work Phone: 03-10-2022 14:40-0400 Heart rate 89 /min Dr. Mikaela Chavarria Work Phone: [facility] Work Phone: 03-10-2022 14:40-0400 Respiratory rate 16 /min Dr. Mikaela Chavarria Work Phone: [facility] Work Phone: 03-10-2022 14:40-0400 SaO2% (BldA) [Mass fraction] 99 % Dr. Mikaela Chavarria Work Phone: [facility] Work Phone: 03-10-2022 14:40-0400 Systolic blood pressure 100 mm[Hg] Dr. Mikaela Chavarria Work Phone: [facility] Work Phone: 03-10-2022 05:55-0400 Body weight 69.[address] Mikaela Chavarria Work Phone: [facility] Work Phone: 03-08-2022 07:21-0400 Body height 160.[address] Mikaela Chavarria Work Phone: [facility] Work Phone: 03-08-2022 07:21-0400 Body mass index (BMI) [Ratio] 28.3 kg/m2 Dr. Mikaela Chavarria Work Phone: [facility] Work Phone: 03-05-2022 21:03-0400 Body temperature 98 [degF] [facility] Work Phone: 03-05-2022 21:03-0400 Diastolic blood pressure 82 mm[Hg] [facility] Work Phone: 03-05-2022 21:03-0400 Heart rate 91 /min [facility] Work Phone: 03-05-2022 21:03-0400 Respiratory rate 16 /min [facility] Work Phone: 03-05-2022 21:03-0400 SaO2% (BldA) [Mass fraction] 98 % [facility] Work Phone: 03-05-2022 21:03-0400 Systolic blood pressure 125 mm[Hg] [facility] Work Phone: 03-05-2022 17:21-0400 Body height 160.02 cm [facility] Work Phone: 03-05-2022 17:21-0400 Body mass index (BMI) [Ratio] 25.4 kg/m2 [facility] Work Phone: 03-05-2022 17:21-0400 Body weight 65.13 kg [facility] Work Phone: 01-06-2022 05:10-0400 Diastolic blood pressure 84 mm[Hg] [facility] Work Phone: 01-06-2022 05:10-0400 Heart rate 82 /min [facility] Work Phone: 01-06-2022 05:10-0400 Respiratory rate 16 /min [facility] Work Phone: 01-06-2022 05:10-0400 SaO2% (BldA) [Mass fraction] 94 % [facility] Work Phone: 01-06-2022 05:10-0400 Systolic blood pressure 121 mm[Hg] [facility] Work Phone: 01-05-2022 21:04-0400 Body height 160.02 cm [facility] Work Phone: 01-05-2022 21:04-0400 Body mass index (BMI) [Ratio] 30.9 kg/m2 [facility] Work Phone: 01-05-2022 21:04-0400 Body temperature 98.7 [degF] [facility] Work Phone: 01-05-2022 21:04-0400 Body weight 79.37 kg [facility] Work Phone: 12-31-2021 15:36-0400 Diastolic blood pressure 85 mm[Hg] [facility] Work Phone: 12-31-2021 15:36-0400 Heart rate 73 /min [facility] Work Phone: 12-31-2021 15:36-0400 Respiratory rate 16 /min [facility] Work Phone: 12-31-2021 15:36-0400 SaO2% (BldA) [Mass fraction] 99 % [facility] Work Phone: 12-31-2021 15:36-0400 Systolic blood pressure 147 mm[Hg] [facility] Work Phone: 12-31-2021 08:59-0400 Body height 160.02 cm [facility] Work Phone: 12-31-2021 08:59-0400 Body mass index (BMI) [Ratio] 25.7 kg/m2 [facility] Work Phone: 12-31-2021 08:59-0400 Body temperature 97.6 [degF] [facility] Work Phone: 12-31-2021 08:59-0400 Body weight 65.77 kg [facility] Work Phone: 12-28-2021 18:40-0400 Body height 160.02 cm [facility] Work Phone: 12-28-2021 18:40-0400 Body mass index (BMI) [Ratio] 25.6 kg/m2 [facility] Work Phone: 12-28-2021 18:40-0400 Body temperature 98.1 [degF] [facility] Work Phone: 12-28-2021 18:40-0400 Body weight 65.7 kg [facility] Work Phone: 12-28-2021 18:40-0400 Diastolic blood pressure 75 mm[Hg] [facility] Work Phone: 12-28-2021 18:40-0400 Heart rate 98 /min [facility] Work Phone: 12-28-2021 18:40-0400 Respiratory rate 18 /min [facility] Work Phone: 12-28-2021 18:40-0400 SaO2% (BldA) [Mass fraction] 95 % [facility] Work Phone: 12-28-2021 18:40-0400 Systolic blood pressure 133 mm[Hg] [facility] Work Phone: 12-28-2021 18:07-0400 Body temperature 98.91 [degF] Shayy Praisler-Wood ELECTRICIAN SUBSTATION SUPERVISOR.SALAD COUNTER ATTENDANT Work Phone: [facility] 12-28-2021 18:07-0400 Body weight 65.86 kg Shayy Praisler-Wood ELECTRICIAN SUBSTATION SUPERVISOR.SALAD COUNTER ATTENDANT Work Phone: [facility] 12-28-2021 18:07-0400 Diastolic blood pressure 64 mm[Hg] Shayy Praisler-Wood ELECTRICIAN SUBSTATION SUPERVISOR.SALAD COUNTER ATTENDANT Work Phone: [facility] 12-28-2021 18:07-0400 Heart rate 80 /min Shayy Praisler-Wood ELECTRICIAN SUBSTATION SUPERVISOR.SALAD COUNTER ATTENDANT Work Phone: [facility] 12-28-2021 18:07-0400 Respiratory rate 18 /min Shayy Praisler-Wood ELECTRICIAN SUBSTATION SUPERVISOR.SALAD COUNTER ATTENDANT Work Phone: [facility] 12-28-2021 18:07-0400 SaO2% (BldA) [Mass fraction] 99 % Shayy Praisler-Wood ELECTRICIAN SUBSTATION SUPERVISOR.SALAD COUNTER ATTENDANT Work Phone: [facility] 12-28-2021 18:0400 Systolic blood pressure 120 mm[Hg] Shayy Zapata APRN.CNP Work Phone: [facility] Encounters Encounter Date Encounter Type Care Provider Facility Start: 02-28-2025 End: 02-28-2025 [facility] Facility:[facility] Start: 02-28-2025 End: 02-28-2025 Office outpatient visit 25 minutes Karen Collado APRN.CNP Work Phone: [facility] Comment on above: Chronic bilateral lo w back pain, unspecified whether sciatica present (Primary Dx); Pain of left lower extremity; Anxiety; Elevated liver enzymes; Hypothyroidism, unspecified type; STD exposure; Mild intermittent asthma without complication (HCC) Start: 02-28-2025 End: 02-28-2025 [facility] Facility:[facility] Start: 02-16-2025 End: 04-18-2025 Follow-up encounter Karen Collado APRN.CNP Work Phone: [facility] Start: 02-14-2025 End: 02-14-2025 [facility] Facility:[facility] Start: 01-24-2025 End: 01-24-2025 [facility] Karen Collado APRN.CNP Work Phone: [facility] [place] Comment on above: Hypothyroidism, unsp ecified type (Primary Dx); Other fatigue; Dysuria; Anxiety; Recurrent major depressive disorder, in partial remission; Vitamin D deficiency; Annual physical exam Start: 01-24-2025 End: 01-24-2025 [facility] Facility:[facility] Start: 01-24-2025 End: 01-24-2025 Patient encounter procedure Karen Collado APRN.CNP Work Phone: [facility] Start: 01-19-2025 End: 01-19-2025 Telephone encounter Karen Collado APRN.CNP Work Phone: [facility] [place] Start: 07-07-2024 End: 07-12-2024 ambulatory Mikaela Chavarria MD Work Phone: [facility] [place] [id number] Start: 06-14-2024 End: 06-14-2024 Emergency department patient visit [facility] Facility:[facility] Start: 03-14-2024 Telephone encounter Akhil MATIAS Work Phone: [facility] Comment on above: Results Start: 03-13-2024 Telephone encounter Anil Luis MD Work Phone: [facility] Comment on above: Results (BV (+), Tri ch (+)) Start: 03-12-2024 End: 03-12-2024 Patient encounter procedure Nadira Sanderson APRN.SALAD COUNTER ATTENDANT Work Phone: [facility] Comment on above: Cystitis (Primary Dx ); Encounter for screening examination for sexually transmitted disease Refill Request Start: 03-12-2024 End: 03-12-2024 ambulatory MIKAELA CHAVARRIA Facility:[facility] Start: 12-07-2022 Refill Mikaela Benoit Work Phone: Internal [facility] Comment on above: Med Change Request Start: 12-01-2022 Refill Mikaela Benoit Work Phone: Internal [facility] Comment on above: Med Change Request Start: 11-17-2022 Telephone encounter Mikaela ha MD Work Phone: [facility] Comment on above: Results Start: 11-15-2022 [...] encounter Mikaela ha MD Work Phone: [facility] Comment on above: Orders; Results Start: 08-28-2022 Refill Karen Older ELECTRICIAN SUBSTATION SUPERVISOR .SALAD COUNTER ATTENDANT Work Phone: [facility] [place] Comment on above: Refill Request Start: 08-26-2022 End: 08-26-2022 Patient encounter procedure Mikaela Chavarria MD Work Phone: [facility] [place] Comment on above: Nasal mass (Primary Dx) Start: 08-10-2022 Refill Karen Older ELECTRICIAN SUBSTATION SUPERVISOR .SALAD COUNTER ATTENDANT Work Phone: [facility] [place] Comment on above: Refill Request Start: 08-07-2022 ambulatory Mikaela Benoit Work Phone: [facility] [place] Start: 07-10-2022 Refill Mikaela Benoit Work Phone: [facility] [place] Comment on above: Refill Request Start: 06-13-2022 [...] Mikaela Chavarria MD Work Phone: [facility] [place] Start: 05-25-2022 Refill Mikaela Benoit Work Phone: [facility] [place] Comment on above: Refill Request Start: 04-25-2022 Telephone encounter Mikaela ha MD Work Phone: [facility] [place] Comment on above: Appointment Start: 04-02-2022 End: 04-02-2022 Emergency department patient visit Dr. Mikaela Chavarria Work Phone: [facility]Emer[facility] Department Start: 04-02-2022 End: 04-02-[address] Mikaela Chavarria Work Phone: [facility] Work Phone: Start: 04-02-2022 End: 04-02-[address] Mikaela Chavarria Work Phone: [facility]-Laboratory Start: 03-27-2022 Refill Mikaela Benoit Work Phone: [facility] [place] Comment on above: Med Change Request Start: 03-19-2022 End: 03-19-[address] Mikaela Chavarria Work Phone: [facility] Start: 03-13-2022 End: 03-13-2022 ambulatory Mikaela Chavarria MD Work Phone: [facility] [place] Comment on above: Hypokalemia (Primary Dx); Cyclothymia; Anxiety Start: 03-13-2022 End: 03-13-2022 Telemedicine consultation with patient Mikaela Chavarria MD Work Phone: [facility] Start: 03-09-2022 Non-patient / Non-visit Dr. Mikaela Chavarria Work Phone: [facility] Start: 03-08-2022 Non-patient / Non-visit Dr. Mikaela Chavarria Work Phone: [facility] Start: 03-08-2022 Non-patient / Non-visit Dr. Mikaela Chavarria Work Phone: [facility] Start: 03-08-2022 Non-patient / Non-visit Dr. Mikaela Chavarria Work Phone: [facility] Start: 03-07-2022 Non-patient / Non-visit Dr. Mikaela Chavarria Work Phone: [facility] Start: 03-07-2022 Non-patient / Non-visit Dr. Mikaela Chavarria Work Phone: [facility] Start: 03-07-2022 Non-patient / Non-visit Dr. Mikaela Chavarria Work Phone: [facility] Start: 03-06-2022 Non-patient / Non-visit [facility] Mikael[facility]ria [facility] Start: 03-06-2022 Non-patient / Non-visit Dr. Mikaela Chavarria Work Phone: [facility] Start: 03-05-2022 Non-patient / Non-visit Dr. Mikaela Chavarria Work Phone: [facility] Start: 03-05-2022 End: 03-10-2022 Evaluation and management of inpatient [facility]Medical Surgical 3 Start: 01-31-2022 End: 01-31-2022 ambulatory Jackie Sainz APRN.CNP Work Phone: Telemedicine Comment on above: Treatment not availa ble (Primary Dx) Start: 01-31-2022 End: 01-31-2022 Telemedicine consultation with patient Jackie Sainz APRN.CNP Work Phone: [facility] Start: 01-31-2022 Distance Health (Vis it Summary) Shazia Seay Provider External-Non[facility] Comment on above: Anxiety disorder, un specified - Gastro-esophageal reflux disease without esophagitis Start: 01-31-2022 External Contact Shazia Seay Provi dwaine EXTERNAL-NON [facility] Start: 01-31-2022 Telephone encounter Mikaela ha MD Work Phone: [facility] [place] Comment on above: Patient Update Start: 01-17-2022 Telephone encounter Mikaela ha MD Work Phone: [facility] [place] Comment on above: Opened In Error Start: 01-11-2022 Refill Madeleine Puma RONQUILLOTRANSLATION DIRECTOR Work Phone: [facility] [place] Comment on above: Refill Request Start: 01-05-2022 End: 01-06-2022 [facility] Start: 01-01-2022 Telephone encounter Mikaela ha MD Work Phone: Internal [facility] Comment on above: Patient Question Start: 12-31-2021 End: 12-31-2021 Emergency department patient visit [facility] Start: 12-28-2021 End: 12-28-2021 [facility] Start: 12-28-2021 End: 12-28-2021 Patient encounter procedure Shayy Zapata APRN.SALAD COUNTER ATTENDANT Work Phone: [facility] Comment on above: Nausea and vomiting, unspecified vomiting type (Primary Dx) Start: 12-15-2021 Refill Mikaela Benoit Work Phone: [facility] [place] Comment on above: Refill Request Start: 12-11-2021 ambulatory Mikaela Benoit Work Phone: [facility] [place] Comment on above: Blood test Start: 12-20-2019 End: 12-20-2019 [facility] Start: 11-27-2019 End: 11-27-2019 Emergency department patient visit [facility] Procedures Date Procedure Procedure Detail Performing Clinician Start: 03-12-2024 Urnls dip stick/tablet rgnt auto w/o microscopy Akhil Villarreal PA Work Phone: Start: 06-03-2022 INFLUENZA VACCINE QUADRIVALENT 6 MO - 64 YRS IM Mikaela Chavarria MD Work Phone: Start: 04-02-2022 Plain chest X-ray Dr. Mikaela Chavarria Work Phone: Start: 04-02-2022 Computed tomography of abdomen and pelvis with intravenous contrast Dr. Mikaela Chavarria Work Phone: Start: 03-08-[address] [...] Detail Author Start: 02-28-2026 Annual PCP Team Hotel [facility] Cashier madisyn Disease Visit Annual PCP Team [facility] Start: 04-11-2025 Influenza vaccination [facility] Start: 03-31-2025 End: 06-30-2025 Thyrotropin [Units/volume] in Serum or Plasma THYROID STIMULATING HORMONE Lab Routine Hypothyroidism, unspecified type Expected: 03/31/2025, Expires: 06/30/2025 [facility] Work Phone: Comment on above: Expected: 03/31/2025 , Expires: 06/30/2025 Start: 03-28-2025 End: 03-28-2025 Patient encounter procedure 03/28/2025 2:00 PM EDT Office Visit [facility] [place] [address] [place] [address] Karen Collado APRN.SALAD COUNTER ATTENDANT [address] [place] [address] 4 week follow up [facility] [place] Comment on above: 4 week follow up Start: 03-17-2025 Urine microalbumin profile [facility] Start: 03-07-2025 End: 03-07-2025 Patient encounter procedure 03/07/2025 1:45 PM EDT Appointment Radiology [address] [place] [address] Elevated liver enzymes [R74.8] Radiology Comment on above: Elevated liver enzym es [R74.8] Start: 01-24-2025 End: 04-25-2025 25-hydroxyvitamin D3 [Mass/volume] in Serum or Plasma VITAMIN D 25 HYDROXY Lab Routine Other fatigue Vitamin D deficiency Expected: 01/24/2025, Expires: 04/25/2025 [facility] Comment on above: Expected: 01/24/2025 , Expires: 04/25/2025 Start: 01-24-2025 End: 04-25-2025 CBC W Auto Differential panel - Blood COMPLETE BLOOD COUNT AND DIFFERENTIAL Lab Routine Dysuria Annual physical exam Other fatigue Expected: 01/24/2025, Expires: 04/25/2025 [facility] Comment on above: Expected: 01/24/2025 , Expires: 04/25/2025 Start: 01-24-2025 End: 04-25-2025 Cobalamin (Vitamin B12) [Mass/volume] in Serum or Plasma VITAMIN B12 Lab Routine Other fatigue Expected: 01/24/2025, Expires: 04/25/2025 [facility] Comment on above: Expected: 01/24/2025 , Expires: 04/25/2025 Start: 01-24-2025 End: 04-25-2025 Comprehensive metabolic 2000 panel - Serum or Plasma COMPREHENSIVE METABOLIC PANEL Lab Routine Dysuria Annual physical exam Other fatigue Expected: 01/24/2025, Expires: 04/25/2025 [facility] Comment on above: Expected: 01/24/2025 , Expires: 04/25/2025 Start: 01-24-2025 End: 04-25-2025 Lipid 1996 panel - Serum or Plasma LIPID PANEL, FASTING Lab Routine Annual physical exam Expected: 01/24/2025, Expires: 04/25/2025 [facility] Comment on above: Expected: 01/24/2025 , Expires: 04/25/2025 Start: 01-24-2025 End: 04-25-2025 Thyrotropin [Units/volume] in Serum or Plasma THYROID STIMULATING HORMONE Lab Routine Hypothyroidism, unspecified type Other fatigue Expected: 01/24/2025, Expires: 04/25/2025 [facility] Work Phone: Comment on above: Expected: 01/24/2025 , Expires: 04/25/2025 Start: 01-24-2025 End: 04-25-2025 Thyroxine (T4) free [Mass/volume] in Serum or Plasma T4 FREE/FREE THYROXINE Lab Routine Hypothyroidism, unspecified type Other fatigue Expected: 01/24/2025, Expires: 04/25/2025 [facility] Comment on above: Expected: 01/24/2025 , Expires: 04/25/2025 Start: 01-24-2025 End: 04-25-2025 Triiodothyronine (T3) Free [Mass/volume] in Serum or Plasma T3, FREE Lab Routine Hypothyroidism, unspecified type Other fatigue Expected: 01/24/2025, Expires: 04/25/2025 [facility] Comment on above: Expected: 01/24/2025 , Expires: 04/25/2025 Start: 01-24-2025 End: 04-25-2025 Urinalysis complete panel - Urine URINALYSIS (WITH MICROSCOPIC) WITH CULTURE IF INDICATED Lab Routine Dysuria Other fatigue Expected: 01/24/2025, Expires: 04/25/2025 [facility] Comment on above: Expected: 01/24/2025 , Expires: 04/25/2025 Start: 04-11-2024 Covid-19 Vaccine ( season) Covid-19 Vaccine () [facility] Start: 04-11-2024 Influenza vaccination Influenza Vacc ine (#1) [facility] Start: 04-11-2023 Covid-19 Vaccine () Covid-19 Vaccine () [facility] Start: 12-17-2022 End: 02-16-2023 Thyrotropin [Units/volume] in Serum or Plasma TSH BLD Lab Routine Hypothyroidism, unspecified type Expected: 12/17/2022, Expires: 02/16/2023 [facility] Work Phone: Comment on above: Expected: 12/17/2022 , Expires: 02/16/2023 Start: 11-05-2022 End: 01-05-2023 25-hydroxyvitamin D3 [Mass/volume] in Serum or Plasma VITAMIN D 25 HYDROXY Lab Routine Vitamin D deficiency Expected: 11/05/2022, Expires: 01/05/2023 [facility] Work Phone: Comment on above: Expected: 11/05/2022 , Expires: 01/05/2023 Start: 11-05-2022 End: 01-05-2023 Comprehensive metabolic 2000 panel - Serum or Plasma COMP METABOLIC PANEL Lab Routine Abnormal thyroid function test Screening for lipid disorders Expected: 11/05/2022, Expires: 01/05/2023 [facility] Work Phone: Comment on above: Expected: 11/05/2022 , Expires: 01/05/2023 Start: 11-05-2022 End: 01-05-2023 Hepatitis C virus Ab [Presence] in Serum HEP C AB IA W/CONF SCRN Lab Routine Special screening examination for viral disease Expected: 11/05/2022, Expires: 01/05/2023 [facility] Work Phone: Comment on above: Expected: 11/05/2022 , Expires: 01/05/2023 Start: 11-05-2022 End: 01-05-2023 Lipid 1996 panel - Serum or Plasma LIPID PANEL BASIC Lab Routine Screening for lipid disorders Expected: 11/05/2022, Expires: 01/05/2023 [facility] Work Phone: Comment on above: Expected: 11/05/2022 , Expires: 01/05/2023 Start: 11-05-2022 End: 01-05-2023 Thyrotropin [Units/volume] in Serum or Plasma TSH BLD Lab Routine Abnormal thyroid function test Expected: 11/05/2022, Expires: 01/05/2023 [facility] Work Phone: Comment on above: Expected: 11/05/2022 , Expires: 01/05/2023 Start: 11-05-2022 End: 01-05-2023 Thyroxine (T4) free [Mass/volume] in Serum or Plasma T4 FREE/FREE THYROX Lab Routine Abnormal thyroid function test Expected: 11/05/2022, Expires: 01/05/2023 [facility] Work Phone: Comment on above: Expected: 11/05/2022 , Expires: 01/05/2023 Start: 11-05-2022 End: 01-05-2023 Triiodothyronine (T3) [Mass/volume] in Serum or Plasma T3 BLD Lab Routine Abnormal thyroid function test Expected: 11/05/2022, Expires: 01/05/2023 [facility] Work Phone: Comment on above: Expected: 11/05/2022 , Expires: 01/05/2023 Start: 2022 Mammography [facility] Start: 2022 Screening for malign ant neoplasm of breast Mammogram Screening [facility] Start: 06-03-2022 End: 08-03-2022 25-hydroxyvitamin D3 [Mass/volume] in Serum or Plasma VITAMIN D 25 HYDROXY Lab Routine Vitamin D deficiency Expected: 06/03/2022, Expires: 08/03/2022 [facility] Work Phone: Comment on above: Expected: 06/03/2022 , Expires: 08/03/2022 Start: 06-03-2022 End: 08-03-2022 Hepatitis C virus Ab [Presence] in Serum HEP C AB IA W/CONF SCRN Lab Routine Special screening examination for viral disease Expected: 06/03/2022, Expires: 08/03/2022 [facility] Work Phone: Comment on above: Expected: 06/03/2022 , Expires: 08/03/2022 Start: 06-03-2022 End: 08-03-2022 Thyrotropin [Units/volume] in Serum or Plasma TSH BLD Lab Routine Hypothyroidism, unspecified type Expected: 06/03/2022, Expires: 08/03/2022 [facility] Work Phone: Comment on above: Expected: 06/03/2022 , Expires: 08/03/2022 Start: 04-11-2022 Influenza vaccination [facility] Start: 04-02-2022 [facility] Work Phone: Start: 03-13-2022 End: 05-13-2022 Basic metabolic 2000 panel - Serum or Plasma BASIC METABOLIC PNL Lab Routine Hypokalemia Expected: 03/13/2022, Expires: 05/13/2022 [facility] Work Phone: Comment on above: Expected: 03/13/2022 , Expires: 05/13/2022 Start: 03-11-2022 [facility] Work Phone: Start: 03-10-2022 Patient discharge [facility] Work Phone: Start: 03-08-2022 [facility] Work Phone: Start: 03-08-2022 [facility] Work Phone: Start: 03-06-2022 Catheterization of vein [facility] Work Phone: Start: 03-06-2022 Lipase measurement [facility] Work Phone: Start: 03-06-2022 [facility] Work Phone: Start: 03-05-2022 Following clinical p athway protocol [facility] Work Phone: Start: 03-05-2022 Assessment of risk o f venous thromboembolism [facility] Work Phone: Start: 03-05-2022 Inhalation therapy procedure [facility] Work Phone: Start: 03-05-2022 Insertion of cathete r into peripheral vein [facility] Work Phone: Start: 03-05-2022 Introduction of urin javier catheter [facility] Work Phone: Start: 03-05-2022 Measuring intake and output [facility] Work Phone: Start: 03-05-2022 Oxygen therapy [facility] Work Phone: Start: 03-05-2022 Providing care accor ding to standard [facility] Work Phone: Start: 03-05-2022 Provision of activit y privileges [facility] Work Phone: Start: 03-05-2022 Referral to gastroenterology service [facility] Work Phone: Start: 03-05-2022 Referral to general surgeon [facility] Work Phone: Start: 03-05-2022 Tobacco use cessatio n education [facility] Work Phone: Start: 03-05-2022 [facility] Work Phone: Start: 03-05-2022 Admission procedure [facility] Work Phone: Start: 03-05-2022 Verification routine [facility] Work Phone: Start: 12-28-2021 Bacteria identified in Urine by Culture Urine Culture [facility] Work Phone: Start: 12-12-2021 End: 02-11-2022 Fibrin D-dimer FEU [Mass/volume] in Platelet poor plasma [facility] Work Phone: Comment on above: Expected: 12/12/2021 , Expires: 02/11/2022 Start: 11-02-2019 HPV TESTING HPV TESTING [facility] Start: 11-02-2019 PAP TESTING PAP TESTING [facility] Start: 11-01-2017 Screening for malign ant neoplasm of cervix Cervical Cancer Scre[facility] Start: 2009 HPV Vaccine (1 - 3-d ose SCDM series) HPV Vaccine (1 - 3-dose SCDM series) [facility] Start: 2001 Hepatitis B Vaccine (1 of 3 - 19+ 3-dose series) Hepatitis B Vaccine (1 of 3 - 19+ 3-dose series) [facility] Start: 2000 HEPATITIS C SCREENING HEPATITIS C SC GENNY [facility] Start: 1987 COVID-19 VACCINE (#1) COVID-19 VACCI NE (#1) [facility] Start: 1987 COVID-19 VACCINE (1) COVID-19 VACCIN E (1) [facility] Start: 1982 COVID-19 VACCINE (#1) COVID-19 VACCI NE (#1) [facility] Start: 1982 HEPATITIS B (1 of 3 - 3-dose series) HEPATITIS B (1 of 3 - 3-dose series) [facility] Alanine aminotransfe rase [Enzymatic activity/volume] in Serum or Plasma [facility] Work Phone: Albumin [Mass/volume ] in Serum or Plasma [facility] Work Phone: Alkaline phosphatase [Enzymatic activity/volume] in Serum or Plasma [facility] Work Phone: Amphetamine [Mass/vo lume] in Urine [facility] Work Phone: Anion gap measurement [facility] Work Phone: Aspartate aminotrans ferase [Enzymatic activity/volume] in Serum or Plasma [facility] Work Phone: Bacteria identified in Urine by Culture URINE CULTURE Microbiology Routine Cystitis Ordered: 03/12/2024 [facility] Work Phone: Comment on above: Ordered: 03/12/2024 BACTERIAL VAGINOSIS NAAT BACTERI AL VAGINOSIS NAAT Lab Routine Encounter for screening examination for sexually transmitted disease Ordered: 03/12/2024 [facility] Comment on above: Ordered: 03/12/2024 Benzodiazepine measurement, urine [facility] Work Phone: Bilirubin, total measurement [facility] Work Phone: BUN/Creatinine ratio [facility] Work Phone: Calcium [Mass/volume ] in Serum or Plasma [facility] Work Phone: HARSHAD/TRICHOMONAS NAAT HARSHAD /TRICHOMONAS NAAT Lab Routine Encounter for screening examination for sexually transmitted disease Ordered: 03/12/2024 [facility] Comment on above: Ordered: 03/12/2024 Carbon dioxide, tota l [Moles/volume] in Serum or Plasma [facility] Work Phone: Chlamydia trachomatis+Neisseria gonorrhoeae DNA [Presence] in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 [facility] ED on 04/02/22. Aileen Golden Ma documented in this encounter [facility] 03-27-2022 Miscellaneous Notes Patient has been [...] Latoya Larose LPN documented in this encounter [facility] 03-13-2022 History of Present illness Narrative [...] Paternal Uncle P UNCLE X 4 WITH [place] Patient Allergies ALLERGIES No Known Allergies Current [...] Mikaela Chavarria MD documented in this encounter [facility] 01-31-2022 History of Present illness Narrative null ( ) Visit Summary for Taya Viveros - Gender: Female - Date of : 1980 Date: - Duration: 10 minutes Patient: Taya FigueroaNeeraj Jez Provider: Eddie Gutierrez Patient Contact Information Address [address] [place] [id number] [phone] Visit Topics Anxiety rib pain heart burn [...] important in case of a medical emergency.Answer [[phone] [phone]] Please enter a number I can contact you in the event we are disconnected.Answer [[phone]] Conversation Transcripts [Notification] You are connected with Eddie Gutierrez, Family Physician.[Notification] Taya Viveros is located in [place].[Notification] Taya Viveros has shared health history...[Notification] Eddie Gutierrez has added a diagnosis/procedure code.[Notification] Eddie Gutierrez has added a diagnosis/procedure code.[Notification] Eddie Gutierrez has added a diagnosis/procedure code. Diagnosis Anxiety disorder, unspecified Value: F41.9 Code: ICD-10-CM Gastro-esophageal reflux disease without esophagitis Value: K21.9 Code: ICD-10-CM Procedures Value: [id number] Code: CPT-4 OL DIG E/M SVC 11-20 [...] can also call the Pharmacy help line: [phone] Electronically signed by: Eddie Gutierrez( ) documented in this encounter [facility] 01-31-2022 History of Present illness Narrative Images from the original note were not included. Pt cancelled appointment prior to attempted connection. Jackie Sainz APRN.SALAD COUNTER ATTENDANT documented in this encounter [facility] 01-31-2022 Miscellaneous Notes Patient is asking for refill on the Xanax but not sure if the pharmacy will be able to give her that medication ordered on 01/11/2022 that she never picked up until today. She will call back to advise (just a fyannie for nursing) documented in this encounter [facility] 01-11-2022 Miscellaneous Notes PDMP website checked [...] Latoya Larose LPN documented in this encounter [facility] 01-11-2022 Miscellaneous Notes Patient has been [...] Latoya Larose LPN documented in this encounter [facility] 01-01-2022 Miscellaneous Notes Left detailed message [...] Patient [facility] be [facility] [facility]. Instructed patient if she is feeling [...] and asking for call back today at [phone]. Ej Esquivel RN Patient calling she was in [facility] ER on 12/28 and again 12/31 [...] PCP want her to do? She uses [facility] for her pharmacy. she does not know if you want to change the medication? She said she is not having any diarrhea. She can not keep anything down and is dehydrated again. Please advise documented [facility] this encounter [facility] 12[facility]28[facility]21 History of Present illness Narrative [...] Paternal Uncle P UNCLE X 4 WITH [place] Social History Tobacco Use Smoking status: Former [...] Shayy Zapata APRN.CNP documented in this encounter [facility] 12-28-2021 Instructions Shayy Zapata APRN.CNP - [...] Shayy Zapata APRN.AIDA documented in this encounter [facility] 12-17-2021 Miscellaneous Notes Patient has been [...] Latoya Larose LPN documented in this encounter [facility] 11-03-2014 History of Past i llness Narrative Problem Noted Date Resolved Date History of depression 11/03/2014 11/03/2014 documented as of this encounter (statuses as of 12/13/2021) [facility]* Problem Noted Date Resolved Date History of depression 11/03/2014 11/03/2014 documented as of this encounter (statuses as of 12/17/2021) [facility]* Problem Noted Date Resolved Date History of depression 11/03/2014 11/03/2014 documented as of this encounter (statuses as of 12/28/2021) [facility] N[facility]* Problem Noted Date Resolved Date History of depression 11/03/2014 11/03/2014 documented as of this encounter (statuses as of 01/08/2022) [facility]* Problem Noted Date Resolved Date History of depression 11/03/2014 11/03/2014 documented as of this encounter (statuses as of 01/11/2022) [address]26-2015 History of Past illness Narrative* Problem Noted Date Resolved Date History of depression 11/03/2014 11/03/2014 documented as of this encounter (statuses as of 01/17/2022) [address]26-2015 History of Past illness Narrative* Problem Noted Date Resolved Date History of depression 11/03/2014 11/03/2014 documented as of this encounter (statuses as of 01/31/2022) [address]26[address]2015 History of Past illness Narrative* Problem Noted Date Resolved Date History of depression 11/03/2014 11/03/2014 documented as of this encounter (statuses as of 02/01/2022) [address]26-2015 History of Past illness Narrative* Problem Noted Date Resolved Date History of depression 11/03/2014 11/03/2014 documented as of this encounter (statuses as of 02/02/2022) [address]26[address]2015 History of Past illness Narrative* Problem Noted Date Resolved Date History of depression 11/03/2014 11/03/2014 documented as of this encounter (statuses as of 03/13/2022) [address]26[address]2015 History of Past illness Narrative* Problem Noted Date Resolved Date History of depression 11/03/2014 11/03/2014 documented as of this encounter (statuses as of 03/28/2022) [address]26[address]2015 History of Past illness Narrative* Problem Noted Date Resolved Date History of depression 11/03/2014 11/03/2014 documented as of this encounter (statuses as of 04/25/2022) [address]26[address]2015 History of Past illness Narrative* Problem Noted Date Resolved Date History of depression 11/03/2014 11/03/2014 documented as of this encounter (statuses as of 06/03/2022) [address]26[address]2015 History of Past illness Narrative* Problem Noted Date Resolved Date History of depression 11/03/2014 11/03/2014 documented as of this encounter (statuses as of 06/07/2022) [address]2015 History of Past illness Narrative* Problem Noted Date Resolved Date History of depression 11/03/2014 11/03/2014 documented as of this encounter (statuses as of 06/17/2022) [address]2015 History of Past illness Narrative* Problem Noted Date Resolved Date History of depression 11/03/2014 11/03/2014 documented as of this encounter (statuses as of 07/11/2022) [address]2015 History of Past illness Narrative* Problem Noted Date Resolved Date History of depression 11/03/2014 11/03/2014 documented as of this encounter (statuses as of 08/15/2022) [address]2015 History of Past illness Narrative* Problem Noted Date Resolved Date History of depression 11/03/2014 11/03/2014 documented as of this encounter (statuses as of 08/15/2022) [address]26[address]2015 History of Past illness Narrative* Problem Noted Date Resolved Date History of depression 11/03/2014 11/03/2014 documented as of this encounter (statuses as of 08/26/2022) [address]26[address]2015 History of Past illness Narrative* Problem Noted Date Resolved Date History of depression 11/03/2014 11/03/2014 documented as of this encounter (statuses as of 08/29/2022) [address]26[address]2015 History of Past illness Narrative* Problem Noted Date Resolved Date History of depression 11/03/2014 11/03/2014 documented as of this encounter (statuses as of 11/05/2022) [address]26[address]2015 History of Past illness Narrative* Problem Noted Date Resolved Date History of depression 11/03/2014 11/03/2014 documented as of this encounter (statuses as of 11/08/2022) [address]2015 History of Past illness Narrative* Problem Noted Date Resolved Date History of depression 11/03/2014 11/03/2014 documented as of this encounter (statuses as of 11/08/2022) [address]2015 History of Past illness Narrative* Problem Noted Date Resolved Date History of depression 11/03/2014 11/03/2014 documented as of this encounter (statuses as of 11/12/2022) [address]2015 History of Past illness Narrative* Problem Noted Date Resolved Date History of depression 11/03/2014 11/03/2014 documented as of this encounter (statuses as of 11/15/2022) [address]2015 History of Past illness Narrative* Problem Noted Date Resolved Date History of depression 11/03/2014 11/03/2014 documented as of this encounter (statuses as of 11/26/2022) [facility]* Problem Noted Date Resolved Date History of depression 11/03/2014 11/03/2014 documented as of this encounter (statuses as of 12/03/2022) [facility]* Problem Noted Date Resolved Date History of depression 11/03/2014 11/03/2014 documented as of this encounter (statuses as of 12/13/2022) [facility] note* Diagnosis Deep vein thrombosis (DVT) of proximal lower extremity, unspecified chronicity, unspecified laterality (HCC)- Primary documented in this encounter [facility] note* Diagnosis Mild intermittent asthma without complication Unspecified asthma documented in this encounter [facility] note* Diagnosis Nausea and vomiting, unspecified vomiting type- Primary documented in this encounter [facility] noteNo assessment information availableWHarrison [facility] Work Phone: evaluation note* Diagnosis Mild intermittent asthma without complication Unspecified asthma documented in this encounter [facility] note* Diagnosis Anxiety Anxiety state, unspecified documented in this encounter [facility] note* Diagnosis Anxiety Anxiety state, unspecified documented in this encounter [facility] note* Diagnosis Treatment not available- Primary Procedure not carried out for other reasons documented in this encounter [facility] note* Diagnosis Treatment not available- Primary Procedure not carried out for other reasons documented in this encounter [facility] note* Diagnosis Onset Date Resolution Status Abdominal pain, acute acute Acute pancreatitis acute Gallbladder sludge acute [facility] Work Phone: Evaluation note* Diagnosis Onset Date Resolution Status Abdominal pain, acute acute Acute gallstone pancreatitis acute Acute pancreatitis acute Gallbladder sludge acute Status post laparoscopic cholecystectomy [facility] Work Phone: evaluation note* Diagnosis Hypokalemia- Primary Hypopotassemia Cyclothymia Cyclothymic disorder Anxiety Anxiety state, unspecified documented in this encounter [facility] note* Diagnosis Onset Date Resolution Status Status post laparoscopic cholecystectomy acute Abdominal pain, acute resolv ed Acute gallstone pancreatitis resolved Acute pancreatitis resolved Gallbladder sludge resolved Status post laparoscopic cholecystectomy acute [facility] Work Phone: Evaluation note* Diagnosis Cyclothymia- Primary [...] Hypothyroidism, unspecified type [facility] Diagnosis Mild intermittent asthma without complication Unspecified asthma [facility]* Diagnosis Encounter for screening mammogram for breast cancer [facility]* Diagnosis Nasal mass- Primary Swelling, mass, or lump in head and neck [facility]* Diagnosis Mild intermittent asthma without complication Unspecified asthma [facility]* Diagnosis Special screening examination for viral disease- Primary Special screening examination for unspecified viral disease Abnormal thyroid function test Nonspecific abnormal results of thyroid function study Screening for lipid disorders Vitamin D deficiency Unspecified vitamin D deficiency [facility]* Diagnosis Moderate episode of recurrent major depressive disorder (HCC)- Primary Mood disorder (HCC) Unspecified episodic mood disorder Attention deficit hyperactivity disorder (ADHD), unspecified ADHD type Insomnia, unspecified type [facility]* Diagnosis Nasal discomfort- Primary Other diseases of nasal cavity and sinuses [facility] Diagnosis Hypothyroidism, unspecified type- Primary Vitamin D deficiency Unspecified vitamin D deficiency [facility]* Diagnosis Hypothyroidism, unspecified type documented in this encounter [facility] note* Diagnosis Vitamin D deficiency Unspecified vitamin D deficiency [facility] Diagnosis Cystitis- Primary Cystitis, unspecified Encounter for screening examination for sexually transmitted disease [facility]* Diagnosis Hypothyroidism, unspecified type documented in this encounter [facility] note* Diagnosis Depression- Primary Depressive disorder, not [...] health care facility documented in this encounter [facility] note* Diagnosis Depression- Primary Depressive disorder, not elsewhere classified Anxiety Anxiety state, unspecified Anxiety- Primary Anxiety state, unspecified Chronic bilateral low back pain, unspecified whether sciatica present- Primary Pain of left lower extremity Anxiety Anxiety state, unspecified Elevated liver enzymes Other nonspecific abnormal serum enzyme levels Hypothyroidism, unspecified type STD exposure Mild intermittent asthma without complication (HCC) Unspecified asthma documented in this encounter [facility] note* Diagnosis Depression- Primary Depressive disorder, not elsewhere classified Anxiety Anxiety state, unspecified Anxiety- Primary Anxiety state, unspecified Vitamin D deficiency Unspecified vitamin D deficiency [facility] Additional Instructions Your urine appeared to possibly be infected, we sent it for a culture, take the antibiotics and follow-up with your doctor for the results and reevaluation.[facility] Work Phone: Hospital Discharge instructions Additional Instructions [...] Make sure you are drinking lots of fluids.[facility] Work Phone: Hospital Discharge instructions Additional Instructions Try the Reglan instead of the Compazine or Phenergan. Do not take them together. [facility] Work Phone: [facility] Work Phone: [facility] Work Phone: Reason for referral (narrative)* Diagnostic Procedure Only (Routine) - Pending Review Specialty Diagnoses / Procedures Referred By Contkelly t Referred To Contact [facility] Diagnoses Encounter for screening mammogram for breast cancer Procedures JUDD SCREENING SCREENING MAMMOGRAPHY BI 2-VIEW BREAST INC CAD Mikaela Chavarria MD [address] [place] [address] [facility] [address] [place] [address] Referral ID Status Reason Start Date Expiration Date Visits Requested Visits Authorized [id number] Pending Review Auto-Generat ed Referral 2 09/06/2023 1 [facility] Diagnostic Procedure Only (Routine) - New Request Specialty Diagnoses / Procedures Referred By Contac t Referred To Contact [facility] Diagnoses Encounter for screening mammogram for breast cancer Procedures JUDD SCREENING W YUE SCREENING DIGITAL BREAST TOMOSYNTHESIS BI SCREENING MAMMOGRAPHY BI 2-VIEW BREAST INC CAD Mikaela Chavarria MD [address] [place] [address] [facility] [address] [facility] [place] [address] Referral ID Status Reason Start Date Expiration Date Visits Requested Visits Authorized [id number] New Request Auto-Generat ed Referral 4 08/06/2025 1 1 [facility] Summary Purpose Family History Relationship Condition Age at Onset Recorded Date/T burak father Cardiac disease Unknown mother Cerebrovascular accident (CVA) Unknown Advance Directives Documents on File Type Date Recorded Patient Compressor Stations Superintendent Expl anation Advance Directive(s) 05/12/2021 1:53 AM Advance Directive Response Recorded Date/ Time Living Will No December 28, 2021 6 :47pm Power of Bulb Weeder No December 28, 2021 6:47pm Advance Directive Response Recorded Date/ Time Living Will No December 31, 2021 9 :01am Power of Bulb Weeder No December 31, 2021 9:01am Advance Directive Response Recorded Date/ Time Living Will No January 05, 2022 9 :40pm Power of Bulb Weeder No January 05, 2022 9:40pm Advance Directive Response Recorded Date/ Time Living Will No March 05, 2022 5:50pm Power of Bulb Weeder No March 05 5:50pm Advance Directive Response Recorded Date/ Time Living Will No March 05, 2022 10:16pm Power of Bulb Weeder No March 05 2 10:16pm Advance Directive Response Recorded Date/ Time Living Will No April 02 2 3:34pm Power of Bulb Weeder No April 02 022 3:34pm Medications Administered [...] abnormal finding Procedures CONSULT TO GYNECOLOGY OFFICE/OUTPATIENT [facility] 60-74 MINUTES Mikaela Chavarria MD [address] [place] [address] Referral ID Status Reason Start Date Expiration Date Visits Requested Visits Authorized [id number] Pending Review PCP Requested Referral Auto-Generate d Referral 2 06/03/2023 1 1 Specialty Diagnoses / Procedures Referred By Chiquis fortune Referred To Contact Ent - Otolaryngology Diagnoses Nasal mass Procedures CONSULT TO ENT OFFICE/OUTPATIENT [facility] 60-74 MINUTES Mikaela Chavarria MD [address] [place] [address] Referral ID Status Reason Start Date Expiration Date Visits Requested Visits Authorized [id number] Pending Review PCP Requested Referral 08/26/2022 08/26/2023 1 1 Additional Source Comments INFORMATION SOURCE (unrecogn ized section and content) DATE CREATED AUTHOR 01/25/2020 [facility] DATE CREATED AUTHOR AUTHOR'S ORGANIZ ATION 05/15/2021 [facility] DATE CREATED AUTHOR AUTHOR'S ORGANIZ ATION 05/20/2021 [facility] DATE CREATED AUTHOR AUTHOR'S ORGANIZ ATION 07/10/2024 [facility] DATE CREATED AUTHOR AUTHOR'S ORGANIZ ATION 03/04/2025 [facility] Source Comments (unrecognize d section and content) In the event this informatio n is protected by the Federal Confidentiality of Alcohol and Drug Abuse Patient Records regulations: The Federal rules restrict any use of the information to criminally investigate or prosecute any alcohol or drug abuse patient.[facility] event this information is protected by the Federal Confidentiality of Alcohol and Drug Abuse Patient Records regulations: The Federal rules restrict any use of the information to criminally investigate or prosecute any alcohol or drug abuse patient.[facility] event this information is protected by the Federal Confidentiality of Alcohol and Drug Abuse Patient Records regulations: The Federal rules restrict any use of the information to criminally investigate or prosecute any alcohol or drug abuse patient.[facility] the event this information is protected by the Federal Confidentiality of Alcohol and Drug Abuse Patient Records regulations: The Federal rules restrict any use of the information to criminally investigate or prosecute any alcohol or drug abuse patient.[facility] the event this information is protected by the Federal Confidentiality of Alcohol and Drug Abuse Patient Records regulations: The Federal rules restrict any use of the information to criminally investigate or prosecute any alcohol or drug abuse patient.[facility] the event this information is protected by the Federal Confidentiality of Alcohol and Drug Abuse Patient Records regulations: The Federal rules restrict any use of the information to criminally investigate or prosecute any alcohol or drug abuse patient.[facility] the event this information is protected by the Federal Confidentiality of Alcohol and Drug Abuse Patient Records regulations: The Federal rules restrict any use of the information to criminally investigate or prosecute any alcohol or drug abuse patient.[facility] the event this information is protected by the Federal Confidentiality of Alcohol and Drug Abuse Patient Records regulations: The Federal rules restrict any use of the information to criminally investigate or prosecute any alcohol or drug abuse patient.[facility] the event this information is protected by the Federal Confidentiality of Alcohol and Drug Abuse Patient Records regulations: The Federal rules restrict any use of the information to criminally investigate or prosecute any alcohol or drug abuse patient.[facility] the event this information is protected by the Federal Confidentiality of Alcohol and Drug Abuse Patient Records regulations: The Federal rules restrict any use of the information to criminally investigate or prosecute any alcohol or drug abuse patient.[facility] the event this information is protected by the Federal Confidentiality of Alcohol and Drug Abuse Patient Records regulations: The Federal rules restrict any use of the information to criminally investigate or prosecute any alcohol or drug abuse patient.[facility] the event this information is protected by the Federal Confidentiality of Alcohol and Drug Abuse Patient Records regulations: The Federal rules restrict any use of the information to criminally investigate or prosecute any alcohol or drug abuse patient.[facility] the event this information is protected by the Federal Confidentiality of Alcohol and Drug Abuse Patient Records regulations: The Federal rules restrict any use of the information to criminally investigate or prosecute any alcohol or drug abuse patient.[facility] the event this information is protected by the Federal Confidentiality of Alcohol and Drug Abuse Patient Records regulations: The Federal rules restrict any use of the information to criminally investigate or prosecute any alcohol or drug abuse patient.[facility] the event this information is protected by the Federal Confidentiality of Alcohol and Drug Abuse Patient Records regulations: The Federal rules restrict any use of the information to criminally investigate or prosecute any alcohol or drug abuse patient.[facility] the event this information is protected by the Federal Confidentiality of Alcohol and Drug Abuse Patient Records regulations: The Federal rules restrict any use of the information to criminally investigate or prosecute any alcohol or drug abuse patient.[facility] the event this information is protected by the Federal Confidentiality of Alcohol and Drug Abuse Patient Records regulations: The Federal rules restrict any use of the information to criminally investigate or prosecute any alcohol or drug abuse patient.[facility] the event this information is protected by the Federal Confidentiality of Alcohol and Drug Abuse Patient Records regulations: The Federal rules restrict any use of the information to criminally investigate or prosecute any alcohol or drug abuse patient.[facility] the event this information is protected by the Federal Confidentiality of Alcohol and Drug Abuse Patient Records regulations: The Federal rules restrict any use of the information to criminally investigate or prosecute any alcohol or drug abuse patient.[facility] the event this information is protected by the Federal Confidentiality of Alcohol and Drug Abuse Patient Records regulations: The Federal rules restrict any use of the information to criminally investigate or prosecute any alcohol or drug abuse patient.[facility]In the event this information is protected by the Federal Confidentiality of Alcohol and Drug Abuse Patient Records regulations: The Federal rules restrict any use of the information to criminally investigate or prosecute any alcohol or drug abuse patient.[facility] the event this information is protected by the Federal Confidentiality of Alcohol and Drug Abuse Patient Records regulations: The Federal rules restrict any use of the information to criminally investigate or prosecute any alcohol or drug abuse patient.[facility]In the event this information is protected by the Federal Confidentiality of Alcohol and Drug Abuse Patient Records regulations: The Federal rules restrict any use of the information to criminally investigate or prosecute any alcohol or drug abuse patient.[facility] the event this information is protected by the Federal Confidentiality of Alcohol and Drug Abuse Patient Records regulations: The Federal rules restrict any use of the information to criminally investigate or prosecute any alcohol or drug abuse patient.[facility] the event this information is protected by the Federal Confidentiality of Alcohol and Drug Abuse Patient Records regulations: The Federal rules restrict any use of the information to criminally investigate or prosecute any alcohol or drug abuse patient.[facility] the event this information is protected by the Federal Confidentiality of Alcohol and Drug Abuse Patient Records regulations: The Federal rules restrict any use of the information to criminally investigate or prosecute any alcohol or drug abuse patient.[facility]In the event this information is protected by the Federal Confidentiality of Alcohol and Drug Abuse Patient Records regulations: The Federal rules restrict any use of the information to criminally investigate or prosecute any alcohol or drug abuse patient.[facility]In the event this information is protected by the Federal Confidentiality of Alcohol and Drug Abuse Patient Records regulations: The Federal rules restrict any use of the information to criminally investigate or prosecute any alcohol or drug abuse patient.[facility] HospitalIn the event this information is protected by the Federal Confidentiality of Alcohol and Drug Abuse Patient Records regulations: The Federal rules restrict any use of the information to criminally investigate or prosecute any alcohol or drug abuse patient.[facility] HospitalIn the event this information is protected by the Federal Confidentiality of Alcohol and Drug Abuse Patient Records regulations: The Federal rules restrict any use of the information to criminally investigate or prosecute any alcohol or drug abuse patient.[facility] HospitalIn the event this information is protected by the Federal Confidentiality of Alcohol and Drug Abuse Patient Records regulations: The Federal rules restrict any use of the information to criminally investigate or prosecute any alcohol or drug abuse patient.[facility] HospitalIn the event this information is protected by the Federal Confidentiality of Alcohol and Drug Abuse Patient Records regulations: The Federal rules restrict any use of the information to criminally investigate or prosecute any alcohol or drug abuse patient.[facility] HospitalIn the event this information is protected by the Federal Confidentiality of Alcohol and Drug Abuse Patient Records regulations: The Federal rules restrict any use of the information to criminally investigate or prosecute any alcohol or drug abuse patient.[facility] HospitalIn the event this information is protected by the Federal Confidentiality of Alcohol and Drug Abuse Patient Records regulations: The Federal rules restrict any use of the information to criminally investigate or prosecute any alcohol or drug abuse patient.[facility] HospitalIn the event this information is protected by the Federal Confidentiality of Alcohol and Drug Abuse Patient Records regulations: The Federal rules restrict any use of the information to criminally investigate or prosecute any alcohol or drug abuse patient.[facility] HospitalIn the event this information is protected by the Federal Confidentiality of Alcohol and Drug Abuse Patient Records regulations: The Federal rules restrict any use of the information to criminally investigate or prosecute any alcohol or drug abuse patient.[facility] HospitalIn the event this information is protected by the Federal Confidentiality of Alcohol and Drug Abuse Patient Records regulations: The Federal rules restrict any use of the information to criminally investigate or prosecute any alcohol or drug abuse patient.[facility] HospitalIn the event this information is protected by the Federal Confidentiality of Alcohol and Drug Abuse Patient Records regulations: The Federal rules restrict any use of the information to criminally investigate or prosecute any alcohol or drug abuse patient.[facility] HospitalIn the event this information is protected by the Federal Confidentiality of Alcohol and Drug Abuse Patient Records regulations: The Federal rules restrict any use of the information to criminally investigate or prosecute any alcohol or drug abuse patient.[facility] Care Teams (unrecognized sec tion and content) Education Dean Relationship Specialty Start Date End Date Mikaela Chavarria MD [address] [place] [address] PCP - General Internal Medicine 03/06/15 Education Dean Relationship Specialty Start Date End Date Mikaela Chavarria MD [address] [place] [address] PCP - General Internal Medicine 03/06/15 Education Dean Relationship Specialty Start Date End Date Mikaela Chavarria MD [address] [place] [address] PCP - General Internal Medicine 03/06/15 Education Dean Relationship Specialty Start Date End Date Mikaela Chavarria MD [address] [place] [address] PCP - General Internal Medicine 03/06/15 Education Dean Relationship Specialty Start Date End Date Mikaela Chavarria MD [address] [place] [address] PCP - General Internal Medicine 03/06/15 Education Dean Relationship Specialty Start Date End Date Mikaela Chavarria MD [address] [place] [address] PCP - General Internal Medicine 03/06/15 Education Dean Relationship Specialty Start Date End Date Mikaela Chavarria MD [address] [facility] [place] [address] PCP - General Internal Medicine 03/06/15 Education Dean Relationship Specialty Start Date End Date Mikaela Chavarria MD [address] [facility] [place] [address] PCP - General Internal Medicine 03/06/15 Education Dean Relationship Specialty Start Date End Date Mkiaela Chavarria MD [address] [facility] [place] [address] PCP - General Internal Medicine 03/06/15 Education Dean Relationship Specialty Start Date End Date Mikaela Chavarria MD [address] [facility] [place] [address] PCP - General Internal Medicine 03/06/15 Education Dean Relationship Specialty Start Date End Date Mikaela Chavarria MD [address] [place] [address] PCP - General Internal Medicine 03/06/15 Education Dean Relationship Specialty Start Date End Date Mikaela Chavarria MD [address] [facility] [place] [address] PCP - General Internal Medicine 03/06/15 Education Dean Relationship Specialty Start Date End Date Mikaela Chavarria MD [address] [place] [address] PCP - General Internal Medicine 03/06/15 Education Dean Relationship Specialty Start Date End Date Mikaela Chavarria MD [address] [facility] [place] [address] PCP - General Internal Medicine 03/06/15 Education Dean Relationship Specialty Start Date End Date Mikaela Chavarria MD [address] [facility] [place] [address] PCP - General Internal Medicine 03/06/15 Education Dean Relationship Specialty Start Date End Date Mikaela Chavarria MD [address] [place] [address] PCP - General Internal Medicine 03/06/15 Education Dean Relationship Specialty Start Date End Date Mikaela Chavarria MD [address] [place] [address] PCP - General Internal Medicine 03/06/15 Education Dean Relationship Specialty Start Date End Date Mikaela Chavarria MD [address] [place] [address] PCP - General Internal Medicine 03/06/15 Education Dean Relationship Specialty Start Date End Date Mikaela Chavarria MD [address] [place] [address] PCP - General Internal Medicine 03/06/15 Education Dean Relationship Specialty Start Date End Date Mikaela Chavarria MD [address] [place] [address] PCP - General Internal Medicine 03/06/15 Education Dean Relationship Specialty Start Date End Date Mikeala Chavarria MD [address] [place] [address] PCP - General Internal Medicine 03/06/15 Karen Collado APRN.SALAD COUNTER ATTENDANT [address] [place] [address] Sales Support Technician Internal Medicine 07/18/24 Education Dean Relationship Specialty Start Date End Date Mikaela Chavarria MD [address] [place] [address] PCP - General Internal Medicine 03/06/15 Karen Collado APRN.SALAD COUNTER ATTENDANT [address] [place] [address] Sales Support Technician Internal Medicine 07/18/24 Education Dean Relationship Specialty Start Date End Date Mikaela Chavarria MD [address] [place] [address] PCP - General Internal Medicine 03/06/15 Karen Collado, ELECTRICIAN SUBSTATION SUPERVISOR.SALAD COUNTER ATTENDANT [address] [place] [address] Sales Support Technician Internal Medicine 07/18/24 Education Dean Relationship Specialty Start Date End Date Mikaela Chavarria MD [address] [place] [address] PCP - General Internal Medicine 03/06/15 Karen Collado, ELECTRICIAN SUBSTATION SUPERVISOR.SALAD COUNTER ATTENDANT [address] [place] [address] Sales Support Technician Internal Medicine 07/18/24 Reason for Visit (unrecogniz ed section and content) Reason Onset Date Comments Refill Request 12/15/2021 Reason Comments Vomiting vomiting and lighthe aded x 2 days Specialty Diagnoses / Procedures Referred By Contkelly t Referred To Contact Internal [facility] / [facility] Diagnoses throwing up for 2 days, light headed nausea Procedures URGENT CARE [facility] [address] [address] [place] [address] Referral ID Status Reason Start Date Expiration Date Visits Requested Visits Authorized [id number] Authorized Patient Cleared - Qualified 100% FAS [...] headed nausea Procedures URGENT CARE Self, [facility] [address] [place] [address] Reason Comments Med Change Request Reason Comments Appointment Reason Onset Date Comments Recheck discuss meds Immunizations 06/03/2022 Flu vaccination Specialty Diagnoses / Procedures Referred By Chiquis t Referred To Contact Diagnoses VIDEO VISIT Procedures VIDEO VISIT [facility] [address] [place] [address] [address] Referral ID Status Reason Start Date Expiration Date Visits Requested Visits Authorized [id number] Authorized Patient Cleared - Qualified 100% FAS [...] Contact Diagnoses n/a Procedures [facility] Referral ID Status Reason Start Date Expiration Date Visits Requested Visits Authorized [id number] Authorized Patient Cleared - Qualified 100% FAS 08/23/2022 11/21/2022 99 99 Reason Comments Refill Request Reason Comments Orders Results Reason Comments Follow Up h/a's and has had a fever with body aches x 1 day took aleve this morning at 8:30a Specialty Diagnoses / Procedures Referred By Chiquis t Referred To Contact Diagnoses Consult/Test/Treat Procedures Consult/Test/Treat Mikaela Chavarria MD [address] [place] [address] [facility] Referral ID Status Reason Start Date Expiration Date Visits Requested Visits Authorized [id number] Authorized Patient Cleared - Qualified 100% FAS 11/08/2022 02/06/2023 99 99 Reason Comments Behavioral Health Social Work Reason Comments Consult Nasal mass- left jason e- discomfort- sx for the last 6 months Specialty Diagnoses / Procedures Referred By Chiquis fortune Referred To Contact Ent - Otolaryngology Diagnoses Nasal mass Procedures CONSULT TO ENT OFFICE/OUTPATIENT NEW HIGH MDM 60-74 MINUTES Mikaela Chavarria MD [address] [place] [address] Referral ID Status Reason Start Date Expiration Date Visits Requested Visits Authorized [id number] Pending Review PCP Requested Referral 08/26/2022 08/26/2023 [...] BE BASED ON THE PRIMARY CLINICAL RECORDS. [employer] provides no warranty or guarantee of the accuracy or completeness of information in this document.
--- OUTSIDE RECORDS SUMMARY | 2025-06-25 03:47 | XMS RPT_ITS | CCD ---
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 above: Order Comment: Speci men Type: BLOOD SPECIMEN Ordering Facility: [facility] Address: [address] [place] [address] Performed By: #### 2 4323-8, 2132-04 #### [facility] CLIA [id number] [address] [place], [place] [address] [place] Chloride [Moles/Vol] 104 mmol/L Normal 98-107 [facility] Comment on above: Order Comment: Speci men Type: BLOOD SPECIMEN Ordering Facility: [facility] Address: [address] [place], [place] [address] Performed By: #### 2 4328, 2132-04 #### [facility] CLIA [id number] [address] [place] [address] [place] CO2 [Moles/Vol] 23 mmol/L Normal 22-30 [facility] Comment on above: Order Comment: Speci men Type: BLOOD SPECIMEN Ordering Facility: [facility] Address: [address] [place] [address] Performed By: #### 2 43210-16, 2132-04 #### [facility] CLIA [id number] [address] [place] [address] [place] Creatinine [Mass/Vol] 0.52 mg/dL Low 0.58-0.96 [facility] Comment on above: Order Comment: Speci men Type: BLOOD SPECIMEN Ordering Facility: [facility] Address: [address] [place] [address] Performed By: #### 2 43210-16, 2132-04 #### [facility] CLIA [id number] [address] [place] [address] [place] Creatinine and Glomerular filtration rate.predicted panel (S/P/Bld) 119 mL/min/1.73m??? Normal >=60 [facility] Comment on above: Order Comment: Speci men Type: BLOOD SPECIMEN Ordering Facility: [facility] Address: [address] [place] [address] Result Comment: Edith mated Glomerular Filtration Rate [...] 2 4328, 2132-04 #### [facility] CLIA [id number] [address] [place], [place] [address] [place] Glucose [Mass/Vol] 83 mg/dL Normal 74-99 [facility] Comment on above: Order Comment: Teresa russell Type: BLOOD SPECIMEN Ordering Facility: [facility] Address: [address] [place] [address] Result Comment: The [place] Diabetes Association (ADA) provides guidance for cutoff [...] Standards of Medical Care in Diabetes 2016, [place] Diabetes Association. Diabetes Care. 2016.39(Suppl 1). Performed By: #### 2 43210-16, 2132-04 #### [facility] CLIA [id number] [address] [place] [address] [place] Potassium [Moles/Vol] 4.4 mmol/L Normal 3.7-5.1 [facility] Comment on above: Order Comment: Teresa russell Type: BLOOD SPECIMEN Ordering Facility: [facility] Address: [address] [place] [address] Performed By: #### 2 43210-16, 2132-04 #### [facility] CLIA [id number] [address] [place] [address] [place] Protein [Mass/Vol] 6.5 g/dL Normal 6.3-8.0 [facility] Comment on above: Order Comment: Teresa russell Type: BLOOD SPECIMEN Ordering Facility: [facility] Address: [address] [place] [address] Performed By: #### 2 43210-16, 2132-04 #### [facility] CLIA [id number] [address] [place] [address] [place] Sodium [Moles/Vol] 137 mmol/L Normal 136-144 [facility] Comment on above: Order Comment: Speci men Type: BLOOD SPECIMEN Ordering Facility: [facility] Address: [address] [place], [place] [address] Performed By: #### 2 4323-8, 2132-04 #### [facility] CLIA [id number] [address] [place], [place] [address] [place] Urea nitrogen [Mass/Vol] 5 mg/dL Low 7-21 [facility] Comment on above: Order Comment: Speci men Type: BLOOD SPECIMEN Ordering Facility: [facility] Address: [address] [place] [address] Performed By: #### 2 4323-8, 2132-04 #### [facility] CLIA [id number] [address] [place] [address] [place] Lipid 1996 panelon 5 Cholesterol [Mass/Vol] 340 mg/dL High <200 [facility] Comment on above: Order Comment: Speci men Type: BLOOD SPECIMEN Ordering Facility: [facility] Address: [address] [place] [address] Result Comment: <200 mg/dL, Desirable 200-239 mg/dL, Borderline high >239 mg/dL, High Performed By: #### 5 195-3, 05128-7, 65271-4, 20307-8 #### [facility] CLIA [id number] [address] [place] [address] [place] Cholesterol in HDL [Mass/Vol] 30 mg/dL Low >39 [facility] Comment on above: Order Comment: Speci men Type: BLOOD SPECIMEN Ordering Facility: [facility] Address: [address] [place] [address] Result Comment: 40-5 9 mg/dL, Acceptable >59 mg/dL, High: Negative risk factor for coronary heart disease <40 mg/dL, Low: Positive risk factor for coronary heart disease Performed By: #### 5 195-3, 85234-4, 27491-4, 51627-9 #### [facility] CLIA [id number] [address] [place] [address] [place] Cholesterol in LDL [Mass/Vol] 259 mg/dL High <100 [facility] Comment on above: Order Comment: Brittanyi men Type: BLOOD SPECIMEN Ordering Facility: [facility] Address: [address] [place] [address] Result Comment: <100 mg/dL, Optimal 100-129 mg/dL, Near optimal/above optimal 130-159 mg/dL, Borderline high 160-189 mg/dL, High >189 mg/dL, Very high Secondary prevention optimal LDL Cholesterol levels are recommended to be <70 mg/dL LDL cholesterol is calculated using the Espino-NIH equation. Performed By: #### 5 195-3, 33381-9, 07488-1, 07571-6 #### [facility] CLIA [id number] [address] [place] [address] [place] Cholesterol in LDL/Cholesterol in HDL [Mass ratio] 8.63 {ratio} High <2.54 [facility] Comment on above: Order Comment: Brittanyi drew Type: BLOOD SPECIMEN Ordering Facility: [facility] Address: [address] [place] [address] Result Comment: [place] carroll: 1. National Cholesterol Education Program ATP III Guideline At-A-Glance Quick Desk Reference: National Heart, Lung, and Blood Bowie. National Institutes of Health. 2001: NIH Publication No. 01-3305. 2. An International Atherosclerosis Society position paper: global recommendations for the management of dyslipidemia: executive summary, Atherosclerosis. 2014: 232(2):410-413. Performed By: #### 5 195-3, 33754-2, 90918-3, 85220-5 #### [facility] CLIA [id number] [address] [place] [address] [place] Cholesterol in VLDL [Mass/Vol] 58 mg/dL High <30 [facility] Comment on above: Order Comment: Speci men Type: BLOOD SPECIMEN Ordering Facility: [facility] Address: [address] [place] [address] Performed By: #### 5 195-3, 35404-3, 55622-5, 90220-0 #### [facility] CLIA [id number] [address] [place] [address] [place] Cholesterol non HDL [Mass/Vol] 310 mg/dL High <130 [facility] Comment on above: Order Comment: Speci men Type: BLOOD SPECIMEN Ordering Facility: [facility] Address: [address] [place] [address] Result Comment: <130 mg/dL, Optimal 130-159 mg/dL, Near optimal/above optimal 160-189 mg/dL, Borderline high 190-219 mg/dL, High >219 mg/dL, Very high Secondary prevention optimal non HDL Cholesterol levels are recommended to be <100 mg/dL Performed By: #### 5 195-3, 15853-8, 36922-1, 80546-8 #### [facility] CLIA [id number] [address] [place] [address] [place] Cholesterol.total/ Cholesterol in HDL [Mass ratio] 11.33 {ratio} High <5.10 [facility] Comment on above: Order Comment: Speci men Type: BLOOD SPECIMEN Ordering Facility: [facility] Address: [address] [place] [address] Performed By: #### 5 195-3, 67085-6, 24806-6, 63842-5 #### [facility] CLIA [id number] [address] [place] [address] [place] FASTING TIME 12 hrs Normal [facility] Comment on above: Order Comment: Speci men Type: BLOOD SPECIMEN Ordering Facility: [facility] Address: [address] [place] [address] Performed By: #### 5 195-3, 11014-8, 22948-5, 30581-0 #### [facility] CLIA [id number] [address] [place] [address] [place] Triglyceride [Mass/Vol] 240 mg/dL High <150 [facility] Comment on above: Order Comment: Speci men Type: BLOOD SPECIMEN Ordering Facility: [facility] Address: [address] [place] [address] Result Comment: <150 mg/dL, Normal 150-199 mg/dL, Borderline high 200-499 mg/dL, High >499 mg/dL, Very high Performed By: #### 5 195-3, 96373-6, 04398-1, 68514-9 #### [facility] CLIA [id number] [address] [place] [address] [place] T3Free SerPl-mCncon 02-15-20 25 Free T3 [Mass/Vol] 2.4 pg/mL Normal 2.3-4.1 [facility] Comment on above: Order Comment: Speci men Type: BLOOD SPECIMEN Ordering Facility: [facility] Address: [address] [place] [address] Performed By: #### 5 195-3, 45355-9, 50139-7, 44476-0 #### [facility] CLIA [id number] [address] [place] [address] [place] T4 Free SerPl-mCncon 025 Free T4 [Mass/Vol] 0.9 ng/dL Normal 0.9-1.7 [facility] Comment on above: Order Comment: Speci men Type: BLOOD SPECIMEN Ordering Facility: [facility] Address: [address] [place] [address] Performed By: #### 5 195-3, 45833-4, 70593-5, 96032-1 #### [facility] CLIA [id number] [address] [place] [address] [place] TSH SerPl-aCncon 02-14-2025 TSH Qn 20.300 m[IU]/L High 0.270-4.200 [facility] Comment on above: Order Comment: Speci men Type: BLOOD SPECIMEN Ordering Facility: [facility] Address: [address] [place] [address] Result Comment: If t he patient is , TSH reference range varies by gestational period: First Trimester (weeks 9-12): 0.180-2.990 mIU/L Second Trimester: 0.110-3.980 mIU/L Third Trimester: 0.480-4.710 mIU/L Maicol Carlin et al. A Practical Approach for the Verifications and Determination of Site- and Trimester-Specific Reference Intervals for Thyroid Function tests in . Thyroid, 2019:29:3:412-420. Max Miranda, et al. 2017 Guidelines of the [place] Thyroid Association for the Diagnosis and Management of Thyroid Disease during and the . Thyroid, 2017:27:3:315-389. Performed By: #### 5 195-3, 04567-1, 44647-7, 04461-3 #### [facility] CLIA [id number] [address] [place] [address] [place] Urinalysis complete panel (U )on 02-14-2025 BACTERIA UL >9821 High Negative [facility] Comment on above: Order Comment: Speci men Type: BLOOD SPECIMEN Ordering Facility: [facility] Address: [address] [place] [address] Performed By: #### 5 195-3, 29734-9, 82229-1, 21103-3 #### [facility] CLIA [id number] [address] [place], [place] [address] [place] Bilirubin Ql (U) Negative Normal Negative [facility] Comment on above: Order Comment: Speci men Type: BLOOD SPECIMEN Ordering Facility: [facility] Address: [address] [place] [address] Performed By: #### 5 195-3, 45449-4, 12942-3, 09796-7 #### [facility] CLIA [id number] [address] [place] [address] [place] Clarity (Unsp spec) Cloudy Abnormal Clear [facility] Comment on above: Order Comment: Speci men Type: BLOOD SPECIMEN Ordering Facility: [facility] Address: [address] [place] [address] Performed By: #### 5 195-3, 72635-8, 19666-4, 08719-4 #### [facility] CLIA [id number] [address] [place] [address] [place] Color (U) Yellow Normal Yellow [facility] Comment on above: Order Comment: Speci men Type: BLOOD SPECIMEN Ordering Facility: [facility] Address: [address] [place] [address] Performed By: #### 5 195-3, 82893-1, 93105-5, 06012-7 #### [facility] CLIA [id number] [address] [place] [address] [place] Epithelial cells LM.HPF (Urine sed) [#/Area] Few Normal [facility] Comment on above: Order Comment: Speci men Type: BLOOD SPECIMEN Ordering Facility: [facility] Address: [address] [place] [address] Performed By: #### 5 195-3, 79331-3, 37923-2, 39186-4 #### [facility] CLIA [id number] [address] [place] [address] [place] Glucose Test strip (U) [Mass/Vol] Negative Normal Negative [facility] Comment on above: Order Comment: Speci men Type: BLOOD SPECIMEN Ordering Facility: [facility] Address: [address] [place] [address] Performed By: #### 5 195-3, 75238-4, 72837-9, 15451-0 #### [facility] CLIA [id number] [address] [place] [address] [place] Hemoglobin Ql (U) Negative Normal Negative [facility] Comment on above: Order Comment: Speci men Type: BLOOD SPECIMEN Ordering Facility: [facility] Address: [address] [place] [address] Performed By: #### 5 195-3, 31668-5, 37934-1, 79745-5 #### [facility] CLIA [id number] [address] [place] [address] [place] Hyaline casts (Urine sed) [#/Area] 0 /[LPF] Normal 0 /LPF [facility] Comment on above: Order Comment: Speci men Type: BLOOD SPECIMEN Ordering Facility: [facility] Address: [address] [place] [address] Performed By: #### 5 195-3, 42872-0, 45948-2, 39860-2 #### [facility] CLIA [id number] [address] [place] [address] [place] Ketones Ql (U) Negative Normal Negative [facility] Comment on above: Order Comment: Speci men Type: BLOOD SPECIMEN Ordering Facility: [facility] Address: [address] [place] [address] Performed By: #### 5 195-3, 31227-7, 78290-1, 52106-8 #### [facility] CLIA [id number] [address] [place] [address] [place] Leukocyte esterase Test strip Ql (U) 2+ Abnormal Negative [facility] Comment on above: Order Comment: Speci men Type: BLOOD SPECIMEN Ordering Facility: [facility] Address: [address] [place] [address] Performed By: #### 5 195-3, 91517-2, 81373-7, 88095-0 #### [facility] CLIA [id number] [address] [place] [address] [place] Nitrite Ql (U) Positive Abnormal Negative [facility] Comment on above: Order Comment: Speci men Type: BLOOD SPECIMEN Ordering Facility: [facility] Address: [address] [place] [address] Performed By: #### 5 195-3, 91733-0, 44164-9, 57758-9 #### [facility] CLIA [id number] [address] [place] [address] [place] pH (U) 6.5 [pH] Normal <8.5 [facility] Comment on above: Order Comment: Speci men Type: BLOOD SPECIMEN Ordering Facility: [facility] Address: [address] [place] [address] Performed By: #### 5 195-3, 68059-4, 38770-2, 94176-7 #### [facility] CLIA [id number] [address] [place] [address] [place] Protein (U) [Mass/Vol] Negative Normal Negative [facility] Comment on above: Order Comment: Speci men Type: BLOOD SPECIMEN Ordering Facility: [facility] Address: [address] [place] [address] Performed By: #### 5 195-3, 64448-7, 81261-4, 71917-5 #### [facility] CLIA [id number] [address] [place] [address] [place] RBC LM.HPF (Urine sed) [#/Area] 0-2 /HPF Normal 0-2 /HPF [facility] Comment on above: Order Comment: Speci men Type: BLOOD SPECIMEN Ordering Facility: [facility] Address: [address] [place] [address] Performed By: #### 5 195-3, 54510-2, 05242-7, 91643-8 #### [facility] CLIA [id number] [address] [place] [address] [place] Specific gravity (U) [Rel density] 1.012 Normal 1.005-1.030 [facility] Comment on above: Order Comment: Speci men Type: BLOOD SPECIMEN Ordering Facility: [facility] Address: [address] [place] [address] Performed By: #### 5 195-3, 43836-4, 01782-0, 68986-6 #### [facility] CLIA [id number] [address] [place] [address] [place] Urobilinogen Ql (U) 0.2 EU/dL Normal 0.2-1.0 EU/dL [facility] Comment on above: Order Comment: Speci men Type: BLOOD SPECIMEN Ordering Facility: [facility] Address: [address] [place] [address] Performed By: #### 5 195-3, 87860-9, 99886-1, 68308-1 #### [facility] CLIA [id number] [address] [place] [address] [place] WBC LM.HPF (Urine sed) [#/Area] 6-10 /HPF Abnormal 0-5 /HPF [facility] Comment on above: Order Comment: Speci men Type: BLOOD SPECIMEN Ordering Facility: [facility] Address: [address] [place] [address] Performed By: #### 5 195-3, 86025-3, 30802-9, 23930-3 #### [facility] CLIA [id number] [address] [place] [address] [place] Vit B12 [facility] [place] 07-2 025 Cobalamin (Vitamin B12) [Mass/Vol] 549 pg/mL Normal 232-1245 [facility] Comment on above: Order Comment: Speci men Type: BLOOD SPECIMEN Ordering Facility: [facility] Address: [address] [place] [address] Performed By: #### 2 4323-8, 2132-9 #### [facility] CLIA [id number] [address] [place] [address] [place] 01-19-2025 [place] Telephone ([facility]) -------- TAYA VIVEROS ([id number]) 1980 F [place] Date Time Provider Department [...] Take 1 tablet by mouth twice weekly [id number], then decrease to 1 tablet weekly. - [...] complicating [O99.330]11/03/2014 Previous delivery affecting *11/03/2014 control [[id number]] 11/03/2014 History of depression [Z86.59] 11/03/2014 11/03/2014 Anxiety [F41.9] 11/03/2014 Grand multipara [Z64.1] 11/25/2014 Supervision of other high-risk [O09.8*01/26/2015 Depression [F32.A] 03/06/2015 Encounter Status:Closed by EJ ESQUIVEL on 01/19/25 Normal [facility] Urine Cultureon 06-16-2024 [facility] Mixed Gram Positive Organisms [place] Count 11,000-25,000 [facility] Mixed contaminants. Submit a new specimen if indicated. Normal [facility] Comment on above: Performed By: #### M 100.2200 #### [facility] [address] [place], [address] CBC W/Diff, Automatedon Absolute Lymph 0.93 X10 3/uL Normal 0.83-4.51 [facility] Comment on above: Performed By: #### L 100.0100 #### [facility] [address] [place], [address] Absolute Neut 10.6 X10 3/uL High 2.0-7.7 [facility] Comment on above: Performed By: #### L 100.0100 #### [facility] [address] [place], [address] Basophils/100 WBC (Bld) 0.4 % Normal 0-1 [facility] Comment on above: Performed By: #### L 100.0100 #### [facility] [address] [place], [address] Eosinophils/100 WBC (Bld) 0.0 % Normal 0-5 [facility] Comment on above: Performed By: #### L 100.0100 #### [facility] [address] [place], [address] Erythrocyte distribution width (RBC) [Ratio] 15.0 % High 11.6-14.6 [facility] Comment on above: Performed By: #### L 100.0100 #### [facility] [address] [place], [address] Hematocrit (Bld) [Volume fraction] 44.1 % Normal 37-47 [facility] Comment on above: Performed By: #### L 100.0100 #### [facility] [address] [place], [address] Hemoglobin (Bld) [Mass/Vol] 15.0 g/dL Normal 12.0-15.0 [facility] Comment on above: Performed By: #### L 100.0100 #### [facility] [address] [place], [address] IG% 0.400 Normal 0.0-0.9 [facility] Comment on above: Result Comment: IG% - Immature Granulocytes (promyelocytes, myelocytes and metamyelocytes) > 1% indicates that a LEFT SHIFT is Present. Performed By: #### L 100.0100 #### [facility] [address] [place], [address] Lymphocytes/100 WBC (Bld) 7.6 % Low 19-41 [facility] Comment on above: Performed By: #### L 100.0100 #### [facility] [address] [place], [address] MCH (RBC) [Entitic mass] 28.0 pg Normal 27.0-32.0 [facility] Comment on above: Performed By: #### L 100.0100 #### [facility] [address] [place], [address] MCHC (RBC) [Mass/Vol] 34.0 g/dL Normal 32-36 [facility] Comment on above: Performed By: #### L 100.0100 #### [facility] [address] [place], [address] MCV (RBC) [Entitic vol] 82.4 fL Normal 81-99 [facility] Comment on above: Performed By: #### L 100.0100 #### [facility] [address] [place], [address] Monocytes/100 WBC (Bld) 4.7 % Normal 0-10 [facility] Comment on above: Performed By: #### L 100.0100 #### [facility] [address] [place], [address] Neutrophils/100 WBC (Bld) 86.9 % High 47-70 [facility] Comment on above: Performed By: #### L 100.0100 #### [facility] [address] [place], [address] Nucleated RBC (Bld) [#/Vol] 0 10*3/uL Normal 0-5 [facility] Comment on above: Performed By: #### L 100.0100 #### [facility] [address] [place], [address] Platelet mean volume (Bld) [Entitic vol] 9.7 fL Normal 6.2-12.0 [facility] Comment on above: Performed By: #### L 100.0100 #### [facility] [address] [place], [address] Platelets (Bld) [#/Vol] 220 10*3/uL Normal 150-450 [facility] Comment on above: Performed By: #### L 100.0100 #### [facility] [address] [place], [address] RBC (Bld) [#/Vol] 5.35 10*6/uL Normal 4.2-5.4 [facility] Comment on above: Performed By: #### L 100.0100 #### [facility] [address] [place], [address] RDW SD 45.0 fl High 35.1-43.9 [facility] Comment on above: Performed By: #### L 100.0100 #### [facility] [address] [place], [address] WBC (Bld) [#/Vol] 12.2 10*3/uL High 4.4-11.0 [facility] Comment on above: Performed By: #### L 100.0100 #### [facility] [address] [place], [address] Comprehensive Metabolic Prof ilon 06-14-2024 Albumin [Mass/Vol] 4.3 g/dL Normal 3.2-5.0 [facility] Comment on above: Performed By: #### L 500.4050, L501.2450 #### [facility] [address] [place], [address] Albumin/Globulin [Mass ratio] 0.9 {ratio} Normal 0.9-2.4 [facility] Comment on above: Performed By: #### L 500.4050, L501.2450 #### [facility] [address] [place], [address] ALK P 77 U/L Normal 45-117 [facility] Comment on above: Performed By: #### L 500.4050, L501.2450 #### [facility] [address] [place], [address] ALT [Catalytic activity/Vol] 70 U/L High 13-56 [facility] Comment on above: Performed By: #### L 500.4050, L501.2450 #### [facility] [address] [place], [address] AST [Catalytic activity/Vol] 94 U/L High 15-37 [facility] Comment on above: Performed By: #### L 500.4050, L501.2450 #### [facility] [address] [place], [address] Bilirubin [Mass/Vol] 1.50 mg/dL High 0.20-1.00 [facility] Comment on above: Result Comment: For patients on eltrombopag therapy, use of Dimension Sims TBIL is not recommended. Performed By: #### L 500.4050, L501.2450 #### [facility] [address] [place], [address] BUN/CRE 7.9 RATIO Low 10-20 [facility] Comment on above: Performed By: #### L 500.4050, L501.2450 #### [facility] [address] [place], [address] CA,Total 10.7 mg/dL High 8.5-10.1 [facility] Comment on above: Performed By: #### L 500.4050, L501.2450 #### [facility] [address] [place], [address] Chloride [Moles/Vol] 94 mmol/L Low 98-107 [facility] Comment on above: Performed By: #### L 500.4050, L501.2450 #### [facility] [address] [place], [address] CO2 [Moles/Vol] 12.0 mmol/L Low 21.0-32.0 [facility] Comment on above: Performed By: #### L 500.4050, L501.2450 #### [facility] [address] [place], [address] Creatinine [Mass/Vol] 1.01 mg/dL Normal 0.55-1.02 [facility] Comment on above: Result Comment: The validity of the calculated GFR GFRAA in patients over 70 years has not been determined. Clinical correlation is essential. Performed By: #### L 500.4050, L501.2450 #### [facility] [address] [place], [address] ECRCL 60.64 ml/min Normal [facility] Comment on above: Performed By: #### L 500.4050, L501.2450 #### [facility] [address] [place], [address] EST GFR - AA 77 mL/min Normal >60 [facility] Comment on above: Result Comment: Afri can Egyptian GFR Calc Performed By: #### L 500.4050, L501.2450 #### [facility] [address] [place], [address] GAP 27 High 5-15 [facility] Comment on above: Performed By: #### L 500.4050, L501.2450 #### [facility] [address] [place], [address] GFR/1.73 sq M.predicted among non-blacks MDRD (S/P/Bld) [Vol rate/Area] 64 mL/min/{1.73_m2} Normal >60 [facility] Comment on above: Result Comment: Non- GFR Calc Performed By: #### L 500.4050, L501.2450 #### [facility] [address] [place], [address] Globulin (S) [Mass/Vol] 4.7 g/dL High 2.2-4.2 [facility] Comment on above: Performed By: #### L 500.4050, L501.2450 #### [facility] [address] [place], [address] Glucose [Mass/Vol] 123 mg/dL High 74-106 [facility] Comment on above: Result Comment: Fast ing Glucose result from 100 to 125 mg/dL suggests IMPAIRED HOMEOSTASIS per A.D.A. criteria. Performed By: #### L 500.4050, L501.2450 #### [facility] [address] [place], [address] Potassium [Moles/Vol] 2.6 mmol/L Invalid Interpretation Code 3.5-5.1 [facility] Comment on above: Performed By: #### L 500.4050, L501.2450 #### [facility] [address] [place], [address] Sodium [Moles/Vol] 133 mmol/L Low 136-145 [facility] Comment on above: Result Comment: Crit ical Result(s) Called at: 14:59:57 06/14/2024 by: LEXIE LIU to Chiquita Godfrey. Results read back by same. Performed By: #### L 500.4050, L501.2450 #### [facility] [address] [place], [address] T PROT 9.0 g/dL High 6.4-8.2 [facility] Comment on above: Performed By: #### L 500.4050, L501.2450 #### [facility] [address] [place], [address] Urea nitrogen [Mass/Vol] 8 mg/dL Normal 7-18 [facility] Comment on above: Performed By: #### L 500.4050, L501.2450 #### [facility] [address] [place], [address] Emergency Department Summary on 06-14-2024 Emergency Department Summary [facility] Medical Records Department [address] [place] [address] Emergency Department Summary 06/14/24 MR#: [id number] Acct: [id number] Name: TAYA VIVEROS Rep #: [id number] : 1980 43 From: Paul Lombardi DO [...] mill e (more content not included)... Normal [facility] Lipaseon 06-14-2024 Lipase [Catalytic activity/Vol] 67 U/L Normal 13-75 [facility] Comment on above: Result Comment: Alfred leyva note: LIPASE revised reference range effective 22. New Lipase methodology. Expected to produce lower values than the previous assay method. NEW Reference Range: 13 - 75 U/L Performed By: #### L 500.4050, L501.2450 #### [facility] [address] [place], [address] Magnesiumon 06-14-2024 Magnesium [Mass/Vol] 2.2 mg/dL Normal 1.6-2.6 [facility] Comment on above: Performed By: #### L 501.5200 #### [facility] [address] [place], [address] Potassiumon 06-14-2024 Potassium [Moles/Vol] 3.3 mmol/L Low 3.5-5.1 [facility] Comment on above: Performed By: #### L 501.5600 #### [facility] [address] [place], [address] Urinalysis, Completeon 06-14 BACTERIA 1+ /hpf Normal None Seen [facility] Comment on above: Order Comment: CLEAN CATCH Performed By: #### L 400.0001 #### [facility] [address] [place], [address] CAST,HYALINE 5-10 SEEN Normal 0-5 [facility] Comment on above: Order Comment: CLEAN CATCH Performed By: #### L 400.0001 #### [facility] [address] [place], [address] Mucus Ql (Urine sed) 2+ /hpf Normal [facility] Comment on above: Order Comment: CLEAN CATCH Performed By: #### L 400.0001 #### [facility] [address] [place], [address] RBC 0-5 SEEN Normal 0-5 [facility] Comment on above: Order Comment: CLEAN CATCH Performed By: #### L 400.0001 #### [facility] [address] [place], [address] WBC 0-5 SEEN Normal 0-5 [facility] Comment on above: Order Comment: CLEAN CATCH Performed By: #### L 400.0001 #### [facility] [address] [place], [address] EPI,SQUAMOUS 5-10 SEEN Normal 5-10 [facility] Comment on above: Order Comment: CLEAN CATCH Performed By: #### L 400.0001 #### [facility] [address] [place], [address] CNPNon 03-14-2024 [facility] Telephone ([facility]) -------- TAYA VIVEROS ([id number]) 1980 F [place] Date Time Provider Department 03/14/24 AKHIL VILLARREAL [facility] During your visit today, we recorded [...] Take 1 tablet by mouth twice weekly [id number], then decrease to 1 tablet weekly. - [...] complicating [O99.330]11/03/2014 Previous delivery affecting *11/03/2014 control [[id number]] 11/03/2014 History of depression [Z86.59] 11/03/2014 11/03/2014 Anxiety [F41.9] 11/03/2014 Grand multipara [Z64.1] 11/25/2014 Supervision of other high-risk [O09.8*01/26/2015 Depression [F32.A] 03/06/2015 Encounter Status:Closed by MINNIE ASHBY on 03/14/24 [facility] [place] 03-13-2024 [place] Telephone ([facility]) -------- TAYA VIVEROS ([id number]) 1980 F [place] Date Time Provider Department 03/13/24 ANIL PANCHAL [facility] During your visit today, we recorded [...] Take 1 tablet by mouth twice weekly [id number], then decrease to 1 tablet weekly. - [...] complicating [O99.330]11/03/2014 Previous delivery affecting *11/03/2014 control [[id number]] 11/03/2014 History of depression [Z86.59] 11/03/2014 11/03/2014 Anxiety [F41.9] 11/03/2014 Grand multipara [Z64.1] 11/25/2014 Supervision of other high-risk [O09.8*01/26/2015 Depression [F32.A] 03/06/2015 Prescriptions ordered this encounter Disp Refills Start End METRONIDAZOLE 500 MG TABLET 14 t* 0 03/13/2024 03/20/2024 Route: ORAL Sig: Take 1 tablet by mouth two times a day for 7 days. Encounter Status:Closed by MEKA PARDO on 03/13/24 Normal [facility] BACTERIAL VAGINOSIS NAATon 0 03-12-2024 Lactobacillus crispatus+gasseri+ jensenii + Gardnerella vaginalis + Atopobium vaginae rRNA NELI+probe Ql (Vag fld) Positive Abnormal Negative for bacterial vaginosis [facility] Comment on above: Order Comment: Speci men Type: BLOOD SPECIMEN Ordering Facility: [facility] Address: [address] [place] [address] Performed By: #### 5 195-3, 35526-3, 76361-7, 92420-8 #### [facility] [place] [id number] [address] [place], [place] [address] [address] [place] Bacteria Ur Culton [...] , Intermediate >32 , Resistant >64 Abnormal [facility] Comment on above: Performed By: #### 2 4323-8, 2132-9 #### [facility] CLIA [id number] [address] [place] [address] [place] C. trachomatis+N. gonorrhoea e DNA NELI+probe Ql (Unsp spec)on 03-12-2024 C. trachomatis rRNA NELI+probe Ql (Unsp spec) Negative Normal Negative for Chlamydia trachomatis by amplificaton [facility] Comment on above: Order Comment: Speci men Type: BLOOD SPECIMEN Ordering Facility: [facility] Address: [address] [place] [address] Performed By: #### 5 195-3, 04229-0, 30924-7, 11945-1 #### [facility] CLIA [id number] [address] [place] [address] [place] N. gonorrhoeae rRNA NELI+probe Ql (Unsp spec) Negative Normal Negative for Neisseria gonorrhoeae by amplification [facility] Comment on above: Order Comment: Speci men Type: BLOOD SPECIMEN Ordering Facility: [facility] Address: [address] [place] [address] Performed By: #### 5 195-3, 49027-5, 94610-1, 01843-7 #### [facility] CLIA [id number] [address] [place] [address] [place] HARSHAD/TRICHOMONAS NAATon 0 03-12-2024 C. glabrata RNA NELI+probe Ql (Vag fld) Negative Normal Negative for Harshad glabrata [facility] Comment on above: Order Comment: Speci men Type: BLOOD SPECIMEN Ordering Facility: [facility] Address: [address] [place] [address] Performed By: #### 5 195-3, 14635-7, 78966-0, 22989-7 #### [facility] CLIA [id number] [address] [place] [address] [place] Harshad sp DNA NELI+probe Ql (Vag fld) Negative Normal Negative for Harshad species [facility] Comment on above: Order Comment: Speci men Type: BLOOD SPECIMEN Ordering Facility: [facility] Address: [address] [place] [address] Performed By: #### 5 195-3, 70225-9, 28781-7, 14891-2 #### [facility] CLIA [id number] [address] [place] [address] [place] T. vaginalis DNA NELI+probe Ql (Unsp spec) Positive Abnormal Negative for Trichomonas vaginalis by amplification [facility] Comment on above: Order Comment: Speci men Type: BLOOD SPECIMEN Ordering Facility: [facility] Address: [address] [place] [address] Performed By: #### 5 195-3, 04782-4, 26810-3, 59000-3 #### [facility] CLIA [id number] [address] [place] [address] OF [place] CNOVon 03-12-2024 [facility] Office Visit ([facility] ) -------- TAYA VIVEROS ([id number]) 1980 F [place] Date Time Provider Department 03/12/24 12:15 PM NADIRA SANDERSON [facility] During your visit today, we recorded the following information about you: Temperature Pulse Respiration Blood pressure 98.3 degrees 109/minute 20/minute 114/78 Weight Last Period 62 kg 02/18/24 Nadira Sanderson APRN.[employer] 03/12/2024 12:58 PM Signed This note was [...] history is provided by the patient. No industrial production manager was used. UTI This is a new [...] Take 1 tablet by mouth twice weekly [id number], then decrease to 1 tablet weekly. (Patient [...] Paternal Uncle P UNCLE X 4 WITH [place] Social History Tobacco Use Smoking status: Former [...] reviewed. Con (more content not included)... Normal [facility] UA DIP, URINE (POC)on 2023 BILIRUBIN UA (POCT) Negative Negative [facility] CLARITY UA (POCT) Cloudy [facility] COLOR UA (POCT) Yellow [facility] GLUCOSE UA (POCT) Negative Negative mg/dL [facility] Hemoglobin Ql (U) Trace-intact Abnormal Negative [facility] Interpretation and review of laboratory results Abnormal [facility] KETONE UA (POCT) Negative Negative [facility] LEUKOCYTES UA (POCT) Small Abnormal Negative [facility] NITRITE UA (POCT) Positive Abnormal Negative [facility] PH UA (POCT) 6.0 4.5 - 8.0 [facility] Protein Ql (U) Negative Negative mg/dL [facility] SPECIFIC GRAVITY UA (POCT) <=1.005 Abnormal 1.005 - 1.030 [facility] UROBILINOGEN UA (POCT) 0.2 Normal E.U./dL [facility] Location:[facility], [address] [place] [address], [place], [place], [id number] [place] [address] POINT OF CARE [facility] Absolute lymphocyte counton 04-02-2022 Lymphocytes Auto (Unsp spec) [#/Vol] 1.51 10*3/uL 0.83-4.51 [facility] Work Phone: Basophil percentageon 2021 Amylase [Catalytic activity/Vol] 26 U/L 25-115 [facility] Work Phone: Basophils/100 WBC (Bld) 0.4 % 0-1 [facility] Work Phone: Bilirubin [Mass/Vol] 0.60 mg/dL 0.20-1.00 [facility] Work Phone: Comment on above: For patients on eltr ombopag therapy, use of Dimension Sims TBIL is not recommended. Chloride [Moles/Vol] 100 mmol/L 98-107 [facility] Work Phone: [phone] Eosinophils/100 WBC (Bld) 0.1 % 0-5 [facility] Work Phone: Glucose [Mass/Vol] 97 mg/dL 74-106 [facility] Work Phone: [phone] Neutrophils (Bld) [#/Vol] 7.5 10*3/uL 2.0-7.7 [facility] Work Phone: Neutrophils/100 WBC (Bld) 75.4 % 47-70 [facility] Work Phone: [phone] Potassium [Moles/Vol] 3.0 mmol/L 3.5-5.1 [facility] Work Phone: Protein [Mass/Vol] 7.7 g/dL 6.4-8.2 [facility] Work Phone: [phone] Sodium [Moles/Vol] 137 mmol/L 136-145 [facility] Work Phone: WBC (Bld) [#/Vol] 10.0 10*3/uL 4.4-11.0 [facility] Work Phone: Blood erythrocytes count (nu mber/volume)on 04-02-2022 RBC (Bld) [#/Vol] 3.98 10*6/uL 4.2-5.4 [facility] Work Phone: [phone] Blood hemoglobin measurement (mass/volume)on 04-02-2022 Hemoglobin (Bld) [Mass/Vol] 11.8 g/dL 12.0-15.0 [facility] Work Phone: [phone] Blood lymphocytes/100 leukoc yteson 04-02-2022 Lymphocytes/100 WBC (Bld) 15.2 % 19-41 [facility] Work Phone: [phone] Blood monocytes/100 leukocyt eson 04-02-2022 Monocytes/100 WBC (Bld) 8.2 % 0-10 [facility] Work Phone: [phone] Blood platelet mean volumeon 04-02-2022 Platelet mean volume (Bld) [Entitic vol] 10.2 fL 6.2-12.0 [facility] Work Phone: Determination of erythrocyte mean corpuscular volume (MCV)on 04-02-2022 MCV (RBC) [Entitic vol] 90.5 fL 81-99 [facility] Work Phone: Erythrocyte sedimentation ra susan 04-02-2022 ESR (Bld) [Velocity] 89 mm/h 0-30 [facility] Work Phone: Hematocrit Auto (Bld) [Volum e fraction]on 04-02-2022 Hematocrit (Bld) [Volume fraction] 36.0 % 37-47 [facility] Work Phone: Laboratory - Chemistry and C hemistry - challengeon 04-02-2022 ALP [Catalytic activity/Vol] 115 U/L 45-117 [facility] Work Phone: ALT [Catalytic activity/Vol] 48 U/L 13-56 [facility] Work Phone: CO2 [Moles/Vol] 26.0 mmol/L 21.0-32.0 [facility] Work Phone: Globulin (S) [Mass/Vol] 5.1 g/dL 2.2-4.2 [facility] Work Phone: Lipase [Catalytic activity/Vol] 124 U/L 73-393 [facility] Work Phone: [phone] Urea nitrogen/Creatinin e [Mass ratio] 4.6 mg/mg 10-20 [facility] Work Phone: Laboratory - Hematology and Cell countson 04-02-2022 Erythrocyte distribution width (RBC) [Entitic vol] 51.4 fL 35.1-43.9 [facility] Work Phone: Erythrocyte distribution width (RBC) [Ratio] 15.4 % 11.6-14.6 [facility] Work Phone: Immature granulocytes/100 WBC (Bld) 0.700 % 0.0-0.9 [facility] Work Phone: [phone] Comment on above: IG% - Immature Granu locytes (promyelocytes, myelocytes and metamyelocytes) > 1% indicates that a LEFT SHIFT is Present. MCH (RBC) [Entitic mass] 29.6 pg 27.0-32.0 [facility] Work Phone: Nucleated RBC/100 WBC (Bld) [Ratio] 0 % 0-5 [facility] Work Phone: MCHC Auto (RBC) [Mass/Vol]on 04-02-2022 MCHC (RBC) [Mass/Vol] 32.8 g/dL 32-36 [facility] Work Phone: No Panel Informationon 04-02 Estimated GFR (MDRD) Amer 93 mL/min >60 [facility] Work Phone: Comment on above: GFR Calc Estimated GFR (MDRD) Non-Af Amer 77 mL/min >60 [facility] Work Phone: Comment on above: Non- GFR Calc Platelets bldon 04-02-2022 Platelets (Bld) [#/Vol] 495 10*3/uL 150-450 [facility] Work Phone: Serum or plasma C reactive p rotein measurement (mass/volume)on 04-02-2022 CRP [Mass/Vol] 172.00 mg/L 0.0-3.0 [facility] Work Phone: Comment on above: C-Reactive Protein ( CRP) provides useful information for thediagnosis, therapy and monitoring of inflammatory processesand associated diseases. For the evaluation of Relative Riskfor Cardiovascular Disease, a High Sensitivity CRP (HSCRP)should be ordered. Serum or plasma albumin silvino urement (mass/volume)on 04-02-2022 Albumin [Mass/Vol] 2.6 g/dL 3.2-5.0 [facility] Work Phone: Serum or plasma albumin/glob ulin mass ratioon 04-02-2022 Albumin/Globulin [Mass ratio] 0.5 {ratio} 0.9-2.4 [facility] Work Phone: Serum or plasma calcium silvino urement (mass/volume)on 04-02-2022 Calcium [Mass/Vol] 9.0 mg/dL 8.5-10.1 [facility] Work Phone: Serum or plasma creatinine m easurement (mass/volume)on 04-02-2022 Creatinine [Mass/Vol] 0.87 mg/dL 0.55-1.02 [facility] Work Phone: Comment on above: The validity of the calculated GFR & GFRAA in patients over 70 years has not been determined. Clinical correlation is essential. Serum or plasma urea nitroge n measurement (mass/volume)on 04-02-2022 Urea nitrogen [Mass/Vol] 4 mg/dL 7-18 [facility] Work Phone: Thin prep Papanicolaou smear with manual screeningon 04-02-2022 Thin prep Papanicolaou smear with manual screening 25 U/L 15-37 [facility] Work Phone: Thin prep Papanicolaou smear with manual screening 11 5-15 [facility] Work Phone: Absolute lymphocyte counton 03-10-2022 Lymphocytes Auto (Unsp spec) [#/Vol] 0.77 10*3/uL 0.83-4.51 [facility] Work Phone: Basophil percentageon 2021 Potassium [Moles/Vol] 3.4 mmol/L 3.5-5.1 [facility] Work Phone: Basophils/100 WBC (Bld) 0.4 % 0-1 [facility] Work Phone: Bilirubin [Mass/Vol] 1.30 mg/dL 0.20-1.00 [facility] Work Phone: Comment on above: For patients on eltr ombopag therapy, use of Dimension Sims TBIL is not recommended. Chloride [Moles/Vol] 105 mmol/L 98-107 [facility] Work Phone: Eosinophils/100 WBC (Bld) 0.0 % 0-5 [facility] Work Phone: Glucose [Mass/Vol] 93 mg/dL 74-106 [facility] Work Phone: [phone] Neutrophils (Bld) [#/Vol] 4.1 10*3/uL 2.0-7.7 [facility] Work Phone: Neutrophils/100 WBC (Bld) 74.2 % 47-70 [facility] Work Phone: Protein [Mass/Vol] 5.9 g/dL 6.4-8.2 [facility] Work Phone: Sodium [Moles/Vol] 139 mmol/L 136-145 [facility] Work Phone: WBC (Bld) [#/Vol] 5.5 10*3/uL 4.4-11.0 [facility] Work Phone: Blood erythrocytes count (nu mber/volume)on 03-10-2022 RBC (Bld) [#/Vol] 3.19 10*6/uL 4.2-5.4 [facility] Work Phone: Blood hemoglobin measurement (mass/volume)on 03-10-2022 Hemoglobin (Bld) [Mass/Vol] 10.0 g/dL 12.0-15.0 [facility] Work Phone: Blood lymphocytes/100 leukoc yteson 03-10-2022 Lymphocytes/100 WBC (Bld) 14.1 % 19-41 [facility] Work Phone: Blood monocytes/100 leukocyt eson 03-10-2022 Monocytes/100 WBC (Bld) 10.8 % 0-10 [facility] Work Phone: [phone] Blood platelet mean volumeon 03-10-2022 Platelet mean volume (Bld) [Entitic vol] 10.5 fL 6.2-12.0 [facility] Work Phone: Determination of erythrocyte mean corpuscular volume (MCV)on 03-10-2022 MCV (RBC) [Entitic vol] 94.4 fL 81-99 [facility] Work Phone: [phone] Hematocrit Auto (Bld) [Volum e fraction]on 03-10-2022 Hematocrit (Bld) [Volume fraction] 30.1 % 37-47 [facility] Work Phone: Laboratory - Chemistry and C hemistry - challengeon 03-10-2022 ALP [Catalytic activity/Vol] 70 U/L 45-117 [facility] Work Phone: ALT [Catalytic activity/Vol] 64 U/L 13-56 [facility] Work Phone: CO2 [Moles/Vol] 27.0 mmol/L 21.0-32.0 [facility] Work Phone: Globulin (S) [Mass/Vol] 3.4 g/dL 2.2-4.2 [facility] Work Phone: Magnesium [Mass/Vol] 1.8 mg/dL 1.6-2.6 [facility] Work Phone: Urea nitrogen/Creatinin e [Mass ratio] 5.1 mg/mg 10-20 [facility] Work Phone: Laboratory - Hematology and Cell countson 03-10-2022 Erythrocyte distribution width (RBC) [Entitic vol] 60.7 fL 35.1-43.9 [facility] Work Phone: Erythrocyte distribution width (RBC) [Ratio] 17.4 % 11.6-14.6 [facility] Work Phone: Immature granulocytes/100 WBC (Bld) 0.500 % 0.0-0.9 [facility] Work Phone: Comment on above: IG% - Immature Granu locytes (promyelocytes, myelocytes and metamyelocytes) > 1% indicates that a LEFT SHIFT is Present. MCH (RBC) [Entitic mass] 31.3 pg 27.0-32.0 [facility] Work Phone: Nucleated RBC/100 WBC (Bld) [Ratio] 0 % 0-5 [facility] Work Phone: MCHC Auto (RBC) [Mass/Vol]on 03-10-2022 MCHC (RBC) [Mass/Vol] 33.2 g/dL 32-36 [facility] Work Phone: No Panel Informationon 03-10 Estimated Creatinine Clearance Calc 105.90 ml/min [facility] Work Phone: Estimated GFR (MDRD) Amer 145 mL/min >60 [facility] Work Phone: Comment on above: GFR Calc Estimated GFR (MDRD) Non-Af Amer 120 mL/min >60 [facility] Work Phone: Comment on above: Non- GFR Calc Platelets bldon 03-10-2022 Platelets (Bld) [#/Vol] 177 10*3/uL 150-450 [facility] Work Phone: Serum or plasma albumin silvino urement (mass/volume)on 03-10-2022 Albumin [Mass/Vol] 2.5 g/dL 3.2-5.0 [facility] Work Phone: Serum or plasma albumin/glob ulin mass ratioon 03-10-2022 Albumin/Globulin [Mass ratio] 0.7 {ratio} 0.9-2.4 [facility] Work Phone: Serum or plasma calcium silvino urement (mass/volume)on 03-10-2022 Calcium [Mass/Vol] 8.4 mg/dL 8.5-10.1 [facility] Work Phone: Serum or plasma creatinine m easurement (mass/volume)on 03-10-2022 Creatinine [Mass/Vol] 0.59 mg/dL 0.55-1.02 [facility] Work Phone: Comment on above: The validity of the calculated GFR & GFRAA in patients over 70 years has not been determined. Clinical correlation is essential. Serum or plasma urea nitroge n measurement (mass/volume)on 03-10-2022 Urea nitrogen [Mass/Vol] 3 mg/dL 7-18 [facility] Work Phone: Thin prep Papanicolaou smear with manual screeningon 03-10-2022 Thin prep Papanicolaou smear with manual screening 51 U/L 15-37 [facility] Work Phone: Thin prep Papanicolaou smear with manual screening 7 5-15 [facility] Work Phone: Direct bilirubinon 2 Bilirubin.direct [Mass/Vol] 0.31 mg/dL 0.00-0.30 [facility] Work Phone: INR in Blood by Coagulation assayon 03-08-2022 INR Coag (Bld) [Relative time] 1.0 {INR} [facility] Work Phone: Laboratory - Chemistry and C hemistry - challengeon 03-08-2022 Lipase [Catalytic activity/Vol] 1591 U/L 73-393 [facility] Work Phone: Laboratory - Coagulationon 0 03-08-2022 aPTT Coag (Bld) [Time] 25.7 s 24.1-36.2 [facility] Work Phone: PT Coag (PPP) [Time] 13.3 s 11.7-14.9 [facility] Work Phone: Absolute lymphocyte counton 03-05-2022 Lymphocytes Auto (Unsp spec) [#/Vol] 1.29 10*3/uL 0.83-4.51 [facility] Work Phone: Basophil percentageon 2021 Basophil percentage 0-5 SEEN /hpf 0-5 [facility] Work Phone: [phone] Basophils/100 WBC (Bld) 0.5 % 0-1 [facility] Work Phone: [phone] Bilirubin [Mass/Vol] 2.40 mg/dL 0.20-1.00 [facility] Work Phone: Comment on above: For patients on eltr ombopag therapy, use of Dimension Sims TBIL is not recommended. Chloride [Moles/Vol] 99 mmol/L 98-107 [facility] Work Phone: Eosinophils/100 WBC (Bld) 0.0 % 0-5 [facility] Work Phone: Glucose [Mass/Vol] 76 mg/dL 74-106 [facility] Work Phone: Neutrophils (Bld) [#/Vol] 4.6 10*3/uL 2.0-7.7 [facility] Work Phone: Neutrophils/100 WBC (Bld) 71.0 % 47-70 [facility] Work Phone: Potassium [Moles/Vol] 3.7 mmol/L 3.5-5.1 [facility] Work Phone: Protein [Mass/Vol] 7.2 g/dL 6.4-8.2 [facility] Work Phone: [phone] Sodium [Moles/Vol] 135 mmol/L 136-145 [facility] Work Phone: WBC (Bld) [#/Vol] 6.5 10*3/uL 4.4-11.0 [facility] Work Phone: [phone] Beta hCG serum qualon 2021 Beta HCG ( test) Ql Negative [facility] Work Phone: Bilirubin Test strip Ql (U)o n 03-05-2022 Bilirubin Ql (U) Negative Negative [facility] Work Phone: Blood erythrocytes count (nu mber/volume)on 03-05-2022 RBC (Bld) [#/Vol] 4.26 10*6/uL 4.2-5.4 [facility] Work Phone: Blood hemoglobin measurement (mass/volume)on 03-05-2022 Hemoglobin (Bld) [Mass/Vol] 13.2 g/dL 12.0-15.0 [facility] Work Phone: [phone] Blood lymphocytes/100 leukoc yteson 03-05-2022 Lymphocytes/100 WBC (Bld) 19.8 % 19-41 [facility] Work Phone: Blood monocytes/100 leukocyt eson 03-05-2022 Monocytes/100 WBC (Bld) 8.4 % 0-10 [facility] Work Phone: Blood platelet mean volumeon 03-05-2022 Platelet mean volume (Bld) [Entitic vol] 10.3 fL 6.2-12.0 [facility] Work Phone: Determination of erythrocyte mean corpuscular volume (MCV)on 03-05-2022 MCV (RBC) [Entitic vol] 89.9 fL 81-99 [facility] Work Phone: Direct bilirubinon 2 Bilirubin.direct [Mass/Vol] 0.82 mg/dL 0.00-0.30 [facility] Work Phone: Hematocrit Auto (Bld) [Volum e fraction]on 03-05-2022 Hematocrit (Bld) [Volume fraction] 38.3 % 37-47 [facility] Work Phone: Ketones Test strip Ql (U)on 03-05-2022 Ketones Ql (U) 150 mg/dl Negative [facility] Work Phone: Comment on above: CRITICAL VALUE VERIF IED. CALLED TO MUSHTAQ LOERA RN (ER)03/05/221911 Tian Marvin.RESULTS READ BACK BY SAME . CRITICAL VALUE *H Laboratory - Chemistry and C hemistry - challengeon 03-05-2022 ALP [Catalytic activity/Vol] 115 U/L 45-117 [facility] Work Phone: ALT [Catalytic activity/Vol] 169 U/L 13-56 [facility] Work Phone: CO2 [Moles/Vol] 20.0 mmol/L 21.0-32.0 [facility] Work Phone: Globulin (S) [Mass/Vol] 3.8 g/dL 2.2-4.2 [facility] Work Phone: Lipase [Catalytic activity/Vol] 1043 U/L 73-393 [facility] Work Phone: Urea nitrogen/Creatinin e [Mass ratio] 10.6 mg/mg 10-20 [facility] Work Phone: Laboratory - Drug toxicology on 03-05-2022 Amphetamines Ql (U) Negative <1000 ng/mL [facility] Work Phone: Benzodiazepines Ql (U) Positive < 200 ng/mL [facility] Work Phone: Cannabinoids Screen Ql (U) Negative < 50 ng/mL [facility] Work Phone: Cocaine Ql (U) Negative < 300 ng/mL [facility] Work Phone: Opiates Ql (U) Negative < 300 ng/mL [facility] Work Phone: Laboratory - Hematology and Cell countson 03-05-2022 Erythrocyte distribution width (RBC) [Entitic vol] 57.1 fL 35.1-43.9 [facility] Work Phone: Erythrocyte distribution width (RBC) [Ratio] 17.4 % 11.6-14.6 [facility] Work Phone: Immature granulocytes/100 WBC (Bld) 0.300 % 0.0-0.9 [facility] Work Phone: Comment on above: IG% - Immature Granu locytes (promyelocytes, myelocytes and metamyelocytes) > 1% indicates that a LEFT SHIFT is Present. MCH (RBC) [Entitic mass] 31.0 pg 27.0-32.0 [facility] Work Phone: Nucleated RBC/100 WBC (Bld) [Ratio] 0 % 0-5 [facility] Work Phone: MCHC Auto (RBC) [Mass/Vol]on 03-05-2022 MCHC (RBC) [Mass/Vol] 34.5 g/dL 32-36 [facility] Work Phone: Mucus LM Ql (Urine sed)on Mucus Ql (Urine sed) 0 SEEN /hpf [facility] Work Phone: Nitrite Test strip Ql (U)on 03-05-2022 Nitrite Ql (U) Negative Negative [facility] Work Phone: No Panel Informationon 03-05 Ethyl Alcohol Level 7.0 mg/dL [facility] Work Phone: Comment on above: The serum:whole bloo d ethanol ratio is approximately 1.14and varies slightly with hematocrit. Medical Alcohol reference interval and critical value innon-tolerant individuals; 50 - 100 Impairment 100 Intoxication 100 - 250 Severe Poisoning 250 - 400 Deep/possible fatal coma MDMA (Ecstasy) Screen Negative < 500 ng/mL [facility] Work Phone: Urine Barbiturates Screen Negative < 200 ng/mL [facility] Work Phone: Urine Drug Screen Comment [facility] Work Phone: Comment on above: CONFIRMATORY TESTING [...] Urine Methadone Screen Negative < 300 ng/mL [facility] Work Phone: Estimated Creatinine Clearance Calc 73.51 ml/min [facility] Work Phone: Estimated GFR (MDRD) Amer 95 mL/min >60 [facility] Work Phone: Comment on above: GFR Calc Estimated GFR (MDRD) Non-Af Amer 79 mL/min >60 [facility] Work Phone: Comment on above: Non- GFR Calc Platelets bldon 03-05-2022 Platelets (Bld) [#/Vol] 221 10*3/uL 150-450 [facility] Work Phone: Protein Test strip Ql (U)on 03-05-2022 Protein Ql (U) 15 mg/dl Negative [facility] Work Phone: Serum or plasma albumin silvino urement (mass/volume)on 03-05-2022 Albumin [Mass/Vol] 3.4 g/dL 3.2-5.0 [facility] Work Phone: Serum or plasma calcium silvino urement (mass/volume)on 03-05-2022 Calcium [Mass/Vol] 9.5 mg/dL 8.5-10.1 [facility] Work Phone: Serum or plasma creatinine m easurement (mass/volume)on 03-05-2022 Creatinine [Mass/Vol] 0.85 mg/dL 0.55-1.02 [facility] Work Phone: Comment on above: The validity of the calculated GFR & GFRAA in patients over 70 years has not been determined. Clinical correlation is essential. Serum or plasma urea nitroge n measurement (mass/volume)on 03-05-2022 Urea nitrogen [Mass/Vol] 9 mg/dL 7-18 [facility] Work Phone: Squamous epithelial cells de tection in urine sediment by light microscopyon 03-05-2022 Epithelial cells.squamous LM Ql (Urine sed) 0-5 SEEN /hpf 5-10 [facility] Work Phone: Thin prep Papanicolaou smear with manual screeningon 03-05-2022 Thin prep Papanicolaou smear with manual screening 352 U/L 15-37 [facility] Work Phone: Thin prep Papanicolaou smear with manual screening 16 5-15 [facility] Work Phone: Urine blood detectionon 02-09 RBC Ql (U) 25 /ul Negative [facility] Work Phone: RBC Ql (U) 0-5 SEEN /hpf 0-5 [facility] Work Phone: Urine clarityon 03-05-2022 Clarity (U) Clear Clear [facility] Work Phone: Urine color determinationon 03-05-2022 Color (U) Yellow Yellow [facility] Work Phone: Urine glucose detectionon Glucose Ql (U) Normal mg/dl Normal [facility] Work Phone: Urine leukocyte esterase det ection by dipstickon 03-05-2022 Leukocyte esterase Test strip Ql (U) 25 /ul Negative [facility] Work Phone: Urine pHon 03-05-2022 pH (U) 6.0 [pH] 5.0 - 8.0 [facility] Work Phone: Urine phencyclidine (PCP) de tectionon 03-05-2022 Phencyclidine Ql (U) Negative < 25 ng/mL [facility] Work Phone: Urine sediment bacteria coun t by microscopy (number/high power field)on 03-05-2022 Bacteria LM.HPF (Urine sed) [#/Area] 1 /[HPF] None Seen [facility] Work Phone: Urine specific gravity measu rementon 03-05-2022 Specific gravity (U) [Rel density] 1.015 1.002-1.030 [facility] Work Phone: Urobilinogen Auto test strip Ql (U)on 03-05-2022 Urobilinogen Ql (U) Normal mg/dl Normal [facility] Work Phone: Absolute lymphocyte counton 01-05-2022 Lymphocytes Auto (Unsp spec) [#/Vol] 1.91 10*3/uL 0.83-4.51 [facility] Work Phone: Basophil percentageon 2021 Lactate [Moles/Vol] 1.1 mmol/L 0.4-2.0 [facility] Work Phone: Basophil percentage 0-5 SEEN /hpf 0-5 [facility] Work Phone: Basophils/100 WBC (Bld) 0.2 % 0-1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 Social History Tobacco Use - Smoking status: [...] HENT: Head: Normocephalic and atraumatic. Mouth/Throat: Lips: [place]. Mouth: Mucous membranes are moist. Eyes: Conjunctiva/sclera: [...] limits Procedu (more content not included)... Normal [facility] Ethanolon 05-12-2021 Ethanol [Mass/Vol] 166 mg/dL High <11 [facility] Comment on above: Performed By: #### A LCO #### [id number] [place] [address] Ethanol [Mass/Vol] 304 mg/dL High <11 [facility] Comment on above: Performed By: #### A LCO #### [place] [address] Toxicology Screen,Uron 05-12 Amphetamines, Urine Negative Normal Negative [facility] Comment on above: Result Comment: Cuto ff threshold at 1000 ng/mL. Performed By: #### U TOX2 #### [place] [address] Barbiturates, Urine Negative Normal Negative [facility] Comment on above: Result Comment: Cuto ff threshold at 200 ng/mL. Performed By: #### U TOX2 #### [place] [address] Benzodiazepines, Ur Negative Normal Negative [facility] Comment on above: Result Comment: Cuto ff threshold at 200 ng/mL. Performed By: #### U TOX2 #### [place] [address] Cannabinoids, Urine Negative Normal Negative [facility] Comment on above: Result Comment: Cuto ff threshold at 50 ng/mL. Performed By: #### U TOX2 #### [place] [address] Cocaine, Urine Negative Normal Negative [facility] Comment on above: Result Comment: Cuto ff threshold at 300 ng/mL. Performed By: #### U TOX2 #### [place] [address] Ethanol, Urine 339 mg/dL High <[address] [place] [address] Comment on above: Performed By: #### U TOX2 #### [place] [address] Opiates, Urine Negative Normal Negative [facility] Comment on above: Result Comment: Cuto ff threshold at 300 ng/mL. Performed By: #### U TOX2 #### [place] [address] Oxycodone, Urine Negative Normal Negative [facility] Comment on above: Result Comment: Cuto [...] on the same specimen through Client Services ([phone]) if contacted within 48 hours of initial testing. [1]Substance Abuse and Mental Health Services Administration (2012). Clinical Drug Testing in Primary Care Technical Assistance Publication Series 32. Department of Health and Human Services, [place], p.10. Performed By: #### U TOX2 #### [place] [phone] Phencyclidine, Urine Negative Normal Negative [facility] Comment on above: Result Comment: Cuto ff threshold at 25 ng/mL. Performed By: #### U TOX2 #### [place] [phone] EMERGENCY REPORTon 0 EMERGENCY REPORT [facility] EMERGENCY ROOM REPORT NAME ACCOUNT SEX AGE ADMIT DISCHARGE PT MED. RECORD# NUMBER DATE DATE TAYA RED [id number] F 39 12/20/19 12/20/19 3 [id number] ROOM: ER DATE OF : 1980 DICTATING [...] Rhona Mckeon DO 12/23/19 06:37 JOB #: [id number] Transcribed By: shweta 12/23/19 16:06 Electronically signed by: E-Sign: Rhona Mckeon D.O. 01/25/20 20:26 Page 2 of 2 TAYA VIVEROS Emergency Room Report Normal [facility] CBC + DIFFon 12-20-2019 Basophils (Bld) [#/Vol] 0.00 x10EE3/UL Normal 0.00 - 0.10 [facility] Comment on above: Performed By: #### 2 73415 #### [facility],[address] [place] [address] Basophils/100 WBC (Bld) 0.5 % Normal 0.0 - 2.0 [facility] Comment on above: Performed By: #### 2 [id number] #### [facility],[address] [place] [address] CBC + DIFF Normal [facility] Comment on above: Result Comment: CBC- COMPLETE BLOOD COUNT Performed By: #### 2 96817 #### [facility],[address] [place] [address] 26664 Eosinophils (Bld) [#/Vol] 0.00 x10EE3/UL Normal 0.00 - 0.50 [facility] Comment on above: Performed By: #### 2 76702 #### [facility],[address] [place] [address] 18471 Eosinophils/100 WBC (Bld) 0.0 % Normal 0.0 - 7.0 [facility] Comment on above: Performed By: #### 2 86574 #### [facility],[address] [place] [address] 46279 Erythrocyte distribution width (RBC) [Ratio] 14.0 % Normal 12.0 - 15.6 [facility] Comment on above: Performed By: #### 2 03427 #### [facility],[address] [place] [address] 10047 Hematocrit (Bld) [Volume fraction] 38.9 % Normal 34.0 - 46.0 [facility] Comment on above: Performed By: #### 2 78911 #### [facility],[address] [place] [address] 48787 Hemoglobin (Bld) [Mass/Vol] 13.2 g/dL Normal 12.0 - 16.0 [facility] Comment on above: Performed By: #### 2 72263 #### [facility],[address] [place] [address] 99891 Lymphocytes (Bld) [#/Vol] 1.00 x10EE3/UL Normal 0.80 - 2.80 [facility] Comment on above: Performed By: #### 2 89835 #### [facility],[address] [place] [address] 53138 Lymphocytes/100 WBC (Bld) 17.6 % Low 20.0 - 45.0 [facility] Comment on above: Performed By: #### 2 51605 #### [facility],[address] [place] [address] 88363 MANUAL DIFF N/A Normal [facility] Comment on above: Performed By: #### 2 60204 #### [facility],[address] [place] [address] 52677 MCH (RBC) [Entitic mass] 27 pg Normal 27 - 33 [facility] Comment on above: Performed By: #### 2 08957 #### [facility],[address] [place] [address] 28655 MCHC (RBC) [Mass/Vol] 34 X10 3 Normal 32 - 36 [facility] Comment on above: Performed By: #### 2 25558 #### [facility],[address] [place] [address] 18294 MCV (RBC) [Entitic vol] 79 fL Low 80 - 99 [facility] Comment on above: Performed By: #### 2 89218 #### [facility],[address] [place] [address] 83944 Monocytes (Bld) [#/Vol] 0.40 x10EE3/UL Normal 0.20 - 1.00 [facility] Comment on above: Performed By: #### 2 79891 #### [facility],[address] [place] [address] 13977 MONOS % 6.8 % Normal 0.0 - 10.0 [facility] Comment on above: Performed By: #### 2 65558 #### [facility],[address] [place] [address] 60810 Morphology Jameel (Bld) [Interp] N/A Normal [facility] Comment on above: Performed By: #### 2 94929 #### [facility],[address] [place] [address] 19815 Neutrophils (Bld) [#/Vol] 4.20 x10EE3/UL Normal 1.50 - 7.10 [facility] Comment on above: Performed By: #### 2 22403 #### [address] [address] Neutrophils/100 WBC (Bld) 75.1 % Normal 46.0 - 76.0 [facility] Comment on above: Performed By: #### 2 98228 #### [address] [address] Platelet mean volume (Bld) [Entitic vol] 8.2 fL Normal 6.6 - 10.5 [facility] Comment on above: Result Comment: AUTO MATED DIFFERENTIAL Performed By: #### 2 19327 #### [address] [address] Platelets (Bld) [#/Vol] 244 x10EE3/UL Normal 150 - 450 [facility] Comment on above: Performed By: #### 2 79772 #### [address] [address] RBC (Bld) [#/Vol] 4.90 x 10EE6/UL Normal 4.10 - 5.30 [facility] Comment on above: Performed By: #### 2 10274 #### [facility],[address] [place] [address] 19261 WBC (Bld) [#/Vol] 5.6 x 10EE3/UL Normal 4.5 - 10.8 [facility] Comment on above: Performed By: #### 2 10539 #### [facility],[address] [place] [address]06 CHEST 2 VIEWSon 12-20-2019 CHEST 2 VIEWS [place] [address] Patient: TAYA VIVEROS Phone#: : 1980 Age: 39 Gender: F Pt. Type: ER Account: [id number] Location: [facility] Ordering: RHONA MCKEON Exam Date: 12/20/2019/16:40 Family Phys: SHAHRAM EDGE Charge Code: 898186 Physician: [place] Order #: [id number] DLP Dose#: PROCEDURE: X-RAY CHEST 2 VIEWS [...] Hinton MD on 12/20/2019 at 16:53 Normal [facility] CMP with eGFRon 12-20-2019 Age - Reported 39 years Normal [facility] Comment on above: Performed By: #### 2 [id number] #### [facility],[address] [place] [address] 65414 Albumin [Mass/Vol] 4.3 g/dL Normal 3.4 - 4.8 [facility] Comment on above: Performed By: #### 2 67111 #### [facility],[address] [place] [address] 27606 Albumin/Globulin [Mass ratio] 1.5 {ratio} Normal 0.9 - 1.6 [facility] Comment on above: Performed By: #### 2 68290 #### [facility],[address] [place] [address] 76331 ALK PHOS 53 U/L Normal 38 - 126 [facility] Comment on above: Performed By: #### 2 71341 #### [facility],[address] [place] [address] 52673 ALT/SGPT 11 U/L Normal 8 - 35 [facility] Comment on above: Performed By: #### 2 46182 #### [facility],[address] [place] [address] 41112 Anion gap [Moles/Vol] 11 mmol/L Normal 10 - 20 [facility] Comment on above: Performed By: #### 2 14366 #### [facility],[address] [place] [address] 08947 AST/SGOT 12 U/L Low 13 - 39 [facility] Comment on above: Performed By: #### 2 29422 #### [facility],[address] [place] [address] 55156 B/C RATIO 14 ratio Normal 0 - 30 [facility] Comment on above: Performed By: #### 2 16720 #### [facility],[address] [place] [address] 10037 Bilirubin [Mass/Vol] 0.6 mg/dL Normal 0.0 - 1.5 [facility] Comment on above: Performed By: #### 2 77275 #### [facility],[address] [place] [address] 22604 Calcium [Mass/Vol] 9.4 mg/dL Normal 8.6 - 10.2 [facility] Comment on above: Performed By: #### 2 60367 #### [facility],[address] [place] [address] 54872 Chloride [Moles/Vol] 101 mmol/L Normal 98 - 107 [facility] Comment on above: Performed By: #### 2 89588 #### [facility],[address] [place] [address] 87748 CO2 [Moles/Vol] 27.6 mmol/L Normal 21.0 - 31.0 [facility] Comment on above: Performed By: #### 2 24720 #### [facility],[address] [place] [address] 51003 Creatinine [Mass/Vol] 0.9 mg/dL Normal 0.6 - 1.2 [facility] Comment on above: Performed By: #### 2 38663 #### [facility],[address] [place] [address] 49743 GFR/1.73 sq M predicted among non-blacks MDRD (S/P/Bld) [Vol rate/Area] Normal [facility] Comment on above: Result Comment: COMP REHENSIVE METABOLIC PANEL Performed By: #### 2 25049 #### [facility],[address] [place] [address] 76390 GFR/1.73 sq M predicted among non-blacks MDRD (S/P/Bld) [Vol rate/Area] mL/min/{1.73_m2} Normal 60 - 999 [facility] Comment on above: Performed By: #### 2 30789 #### [facility],[address] [place] [address] 13791 Result Comment: ACCO RDING TO THE NATIONAL KIDNEY DISEASE EDUCATION PROGRAM(NKDE), A NORMAL eGFR IS A VALUE GREATER THAN OR EQUAL TO 60 ML/MIN/1.73 SQ METERS. CHRONIC KIDNEY DISEASE: <60mL/MIN/1.73 SQ METERS KIDNEY FAILURE: <15mL/MIN/1.73 SQ METERS THIS TEST SHOULD ONLY BE USED FOR PATIENTS 18 YEARS OF AGE AND OLDER. Globulin (S) [Mass/Vol] 2.8 g/dL Normal 1.5 - 3.8 [facility] Comment on above: Performed By: #### 2 89800 #### [facility],[address] [place] [address] 94185 Glucose [Mass/Vol] 90 mg/dL Normal 74 - 106 [facility] Comment on above: Performed By: #### 2 88581 #### [facility],[address] [place] [address] 33076 Potassium [Moles/Vol] 3.8 mmol/L Normal 3.5 - 5.1 [facility] Comment on above: Performed By: #### 2 24771 #### [facility],[address] [place] [address] 78592 Protein [Mass/Vol] 7.1 g/dL Normal 6.4 - 8.3 [facility] Comment on above: Performed By: #### 2 23467 #### [facility],[address] [place] [address] 57436 Sodium [Moles/Vol] 136 mmol/L Normal 136 - 145 [facility] Comment on above: Performed By: #### 2 81117 #### [facility],[address] [place] [address] 90152 Urea nitrogen [Mass/Vol] 13 mg/dL Normal 6 - 20 [facility] Comment on above: Performed By: #### 2 24198 #### [facility],[address] [place] [address] 51197 D-DIMER, QUANTITATIVEon 12-09 D-DIMER QUANT 220 ng/ml Normal 0 - 230 [facility] Comment on above: Performed By: #### 2 54197 #### [facility],[address] [place] [address] 49810 D-DIMER, QUANTITATIVE Normal [facility] Comment on above: Result Comment: EMANUEL T D-DIMER Performed By: #### 2 83700 #### [facility],[address] [place] [address] 47509 URINEon 12-20-2019 Beta HCG ( test) Ql (U) Negative Normal NEGATIVE [facility] Comment on above: Performed By: #### 2 95491 #### [facility],[address] [place] [address] EXTERNAL QC DONE? YES Normal [facility] Comment on above: Performed By: #### 2 78828 #### [facility],[address] [place] [address] INTERNAL QC PASS Normal [facility] Comment on above: Performed By: #### 2 91479 #### [facility],[address] [place] [address] TROPONINon 12-20-2019 Troponin I.cardiac [Mass/Vol] ng/mL Normal 0.00 - 0.05 [facility] Comment on above: Result Comment: Elev ated [...] as heterophile antibodies). Performed By: #### 2 77389 #### [facility],[address] [place], [place] [phone] URINALYSIS WITH MICROSCOPYon 12-20-2019 Amorphous NONE Normal [facility] Comment on above: Performed By: #### 2 46373 #### [address] [address] Bacteria LM.HPF (Urine sed) [#/Area] 3+ Normal [facility] Comment on above: Performed By: #### 2 06286 #### [facility],[address] [place] [address] 65145 Bilirubin [Mass/Vol] Negative Normal NORMAL: NEGATIVE [facility] Comment on above: Performed By: #### 2 98302 #### [facility],[address] [place] [address] 68052 Blood 10 Abnormal NORMAL: NEGATIVE [facility] Comment on above: Performed By: #### 2 12841 #### [facility],[address] [place], [place] [phone] Casts LM.LPF (Urine sed) [#/Area] NONE Normal [facility] Comment on above: Performed By: #### 2 91039 #### [facility],[address] [place] [address] Clarity (U) sl.cloudy Normal NORMAL: CLEAR [facility] Comment on above: Performed By: #### 2 26371 #### [facility],[address] [place] [address] Color (U) p.yel Normal NORMAL: YELLOW [facility] Comment on above: Performed By: #### 2 17319 #### [facility],[address] [place] [address] Crystals LM Nom (Urine sed) NONE Normal [facility] Comment on above: Performed By: #### 2 56224 #### [facility],[address] [place], [place] [phone] Epi Cells FEW Normal [facility] Comment on above: Performed By: #### 2 67538 #### [facility],[address] [place], [place] [phone] Glucose [Mass/Vol] NORM Normal NORMAL: NORMAL [facility] Comment on above: Performed By: #### 2 04315 #### [facility],[address] [place], [place] [phone] Ketone Negative Normal NORMAL: NEGATIVE [facility] Comment on above: Performed By: #### 2 36749 #### [facility],[address] [place], [place] [phone] Mucous NONE Normal [facility] Comment on above: Performed By: #### 2 17320 #### [facility],[address] [place] [address] Nitrite Ql (U) Positive Normal NORMAL: NEGATIVE [facility] Comment on above: Performed By: #### 2 88630 #### [facility],[address] [place] [address] pH (Bld) 7 Normal NORMAL: 5.0-8.0 [facility] Comment on above: Performed By: #### 2 50101 #### [facility],[address] [place] [address] Protein (U) [Mass/Vol] Negative Normal NORMAL: NEGATIVE [facility] Comment on above: Performed By: #### 2 00540 #### [facility],[address] [place] [address] Rbc NONE Normal 0-3 / hpf [facility] Comment on above: Performed By: #### 2 78851 #### [facility],[address] [place] [address] Sp Bertrand 1.010 Normal NORMAL: 1.010-1.030 [facility] Comment on above: Performed By: #### 2 21919 #### [facility],[address] [place] [address] Specimen type Nom (Spec) UNSPECIFIED Normal [facility] Comment on above: Performed By: #### 2 41176 #### [facility],[address] [place] [address] URINALYSIS WITH MICROSCOPY Normal [facility] Comment on above: Result Comment: URIN ALYSIS Performed By: #### 2 17209 #### [facility],[address] [place] [address] Urobilinog NORM Normal NORMAL: NORMAL [facility] Comment on above: Performed By: #### 2 21216 #### [facility],[address] [place], [place] [address] Wbc RARE Normal 0-5 / hpf [facility] Comment on above: Performed By: #### 2 89572 #### [facility],[address] [place] [address] 26906 WBC (Bld) [#/Vol] Negative Normal NORMAL: NEGATIVE [facility] Comment on above: Result Comment: URIN E MICROSCOPIC Performed By: #### 2 20343 #### [place] [id number] Yeast LM Ql (Urine sed) NONE Normal [facility] Comment on above: Performed By: #### 2 60989 #### [address] [address] EMERGENCY REPORTon 0 EMERGENCY REPORT [facility] EMERGENCY ROOM REPORT NAME ACCOUNT SEX AGE ADMIT DISCHARGE PT MED. RECORD# NUMBER DATE DATE TAYA RED [id number] F 39 11/27/19 11/27/19 3 [id number] ROOM: ER DATE OF : 1980 DICTATING [...] pain. Her PCP is Dr. Edge in [place]. PAST MEDICAL HISTORY: Denied. PAST SURGICAL HISTORY: [...] motor or sensory deficits are noted. 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 Skin is warm [...] Roshni Renteria DO 11/27/19 20:53 JOB #: [id number] Transcribed By: am 11/28/19 14:56 Page 2 of 3 TAYA VIVEROS Emergency Room Report TAYA VIVEROS : 1980 Electronically signed by: E-Sign: Dr. Roshni Renteria D.O. 12/01/19 23:27 Page 3 of 3 TAYA VIVEROS Emergency Room Report Normal [facility] CT BRAIN W/O CONTRASTon 11-09 CT BRAIN W/O CONTRAST [place] [address] Patient: TAYA VIVEROS. Phone#: : 1980 Age: 39 Gender: F Pt. Type: ER Account: [id number] Location: 052 Ordering: ROSHNI RENTERIA Exam Date: 11/27/201920:19 Family Phys: SHAHRAM MINESH Charge Code: [id number] Physician: [place] Order #: [id number] DLP Dose#: PROCEDURE: CT BRAIN WITHOUT CONTRAST [...] Hinton MD on 11/28/2019 at 14:[address] [facility] [address] CERVICAL W/O CONTRASTon 0 11-27-2019 CT CERVICAL W/O CONTRAST [address] [address] Patient: TAYA VIVEROS Phone#: : 1980 Age: 39 Gender: F Pt. Type: ER Account: [id number] Location: 052 Ordering: ROSHNI RENTERIA Exam Date: 11/27/201920:19 Family Phys: SHAHRAM EDGE Charge Code: [id number] Physician: [place] Order #: [id number] DLP Dose#: PROCEDURE: CT CERVICAL WITHOUT CONTRAST [...] 39 Gender: F Pt. Type: ER Account: [id number] Location: 2 Ordering: ROSHIN RENTERIA Exam Date: 11/27/2019/20:19 Family Phys: SHAHRAM CERVANTESLEY Charge Code: [id number] Physician: [place] Order #: [id number] DLP Dose#: 2. There is no evidence of acute fracture or subluxation. Dictated by: Katherine Hinton MD on 11/28/2019 at 14:25 Approved by: Katherine Hinton MD on 11/28/2019 at 14:25 Normal [facility] Culture, urine Bacteria identified Cx Nom (U) Escherichia coli [facility] Work Phone: Vital Signs Date Time Vital Sign Value Performing Clinician Facility 02-28-2025 15:11-0400 Body mass index (BMI) [Ratio] 24.27 kg/m2 Karen Collado SENIOR NET WEB DEVELOPER.REGIONAL WILDLIFE AGENT Work Phone: [facility] 02-28-2025 15:11-0400 Body weight 62.14 kg Karen Older SENIOR NET WEB DEVELOPER.REGIONAL WILDLIFE AGENT Work Phone: [facility] 02-28-2025 15:11-0400 Diastolic blood pressure 80 mm[Hg] Karen Older SENIOR NET WEB DEVELOPER.REGIONAL WILDLIFE AGENT Work Phone: [facility] 02-28-2025 15:11-0400 Heart rate 72 /min Karen Older SENIOR NET WEB DEVELOPER.REGIONAL WILDLIFE AGENT Work Phone: [facility] 02-28-2025 15:11-0400 Respiratory rate 16 /min Karen Older SENIOR NET WEB DEVELOPER.REGIONAL WILDLIFE AGENT Work Phone: [facility] 02-28-2025 15:11-0400 SaO2% (BldA) [Mass fraction] 100 % Karen Older SENIOR NET WEB DEVELOPER.REGIONAL WILDLIFE AGENT Work Phone: [facility] 02-28-2025 15:11-0400 Systolic blood pressure 112 mm[Hg] SENIOR NET WEB DEVELOPER.REGIONAL WILDLIFE AGENT Work Phone: [facility] 03-12-2024 12:25-0400 Body mass index (BMI) [Ratio] 24.21 kg/m2 Nadira Sanderson SENIOR NET WEB DEVELOPER.REGIONAL WILDLIFE AGENT Work Phone: [facility] 03-12-2024 12:25-0400 Body temperature 98.29 [degF] Nadira Sanderson SENIOR NET WEB DEVELOPER.REGIONAL WILDLIFE AGENT Work Phone: [facility] 03-12-2024 12:25-0400 Body weight 62 kg Nadira Sanderson SENIOR NET WEB DEVELOPER.REGIONAL WILDLIFE AGENT Work Phone: [facility] 03-12-2024 12:25-0400 Diastolic blood pressure 78 mm[Hg] Nadira Sanderson SENIOR NET WEB DEVELOPER.REGIONAL WILDLIFE AGENT Work Phone: [facility] 03-12-2024 12:25-0400 Heart rate 109 /min Nadira Sanderson SENIOR NET WEB DEVELOPER.REGIONAL WILDLIFE AGENT Work Phone: [facility] 03-12-2024 12:25-0400 Respiratory rate 20 /min Nadira Sanderson SENIOR NET WEB DEVELOPER.REGIONAL WILDLIFE AGENT Work Phone: [facility] 03-12-2024 12:25-0400 SaO2% (BldA) [Mass fraction] 100 % Nadira Sanderson SENIOR NET WEB DEVELOPER.REGIONAL WILDLIFE AGENT Work Phone: [facility] 03-12-2024 12:25-0400 Systolic blood pressure 114 mm[Hg] Nadira Sanderson SENIOR NET WEB DEVELOPER.REGIONAL WILDLIFE AGENT Work Phone: [facility] 11-08-2022 10:50-0400 Body height 160 cm Mikaela Chavarria MD Work Phone: [facility] 11-08-2022 10:50-0400 Body temperature 98.29 [degF] Mikaela Chavarria MD Work Phone: [facility] 11-08-2022 10:50-0400 Body weight 66.68 kg Mikaela Chavarria MD Work Phone: [facility] 11-08-2022 10:50-0400 Diastolic blood pressure 60 mm[Hg] Mikaela Chavarria MD Work Phone: [facility] 11-08-2022 10:50-0400 Heart rate 84 /min Mikaela Chavarria MD Work Phone: [facility] 11-08-2022 10:50-0400 Respiratory rate 12 /min Mikaela Chavarria MD Work Phone: [facility] 11-08-2022 10:50-0400 SaO2% (BldA) [Mass fraction] 100 % Mikaela Chavarria MD Work Phone: [facility] 11-08-2022 10:50-0400 Systolic blood pressure 110 mm[Hg] Mikaela Chavarria MD Work Phone: [facility] 08-26-2022 15:14-0500 Body height 160 cm Mikaela Chavarria MD Work Phone: [facility] 08-26-2022 15:14-0500 Body temperature 97.81 [degF] Mikaela Chavarria MD Work Phone: [facility] 08-26-2022 15:14-0500 Body weight 69.85 kg Mikaela Chavarria MD Work Phone: [facility] 08-26-2022 15:14-0500 Diastolic blood pressure 68 mm[Hg] Mikaela Chavarria MD Work Phone: [facility] 08-26-2022 15:14-0500 Heart rate 84 /min Mikaela Chavarria MD Work Phone: [facility] 08-26-2022 15:14-0500 Respiratory rate 12 /min Mikaela Chavarria MD Work Phone: [facility] 08-26-2022 15:14-0500 SaO2% (BldA) [Mass fraction] 99 % Mikaela Chavarria MD Work Phone: [facility] 08-26-2022 15:14-0500 Systolic blood pressure 106 mm[Hg] Mikaela Chavarria MD Work Phone: [facility] 06-03-2022 15:00-0400 Body height 160 cm Mikaela Chavarria MD Work Phone: [facility] 06-03-2022 15:00-0400 Body temperature 97.9 [degF] Mikaela Chavarria MD Work Phone: [facility] 06-03-2022 15:00-0400 Body weight 70.76 kg Mikaela Chavarria MD Work Phone: [facility] 06-03-2022 15:00-0400 Diastolic blood pressure 66 mm[Hg] Mikaela Chavarria MD Work Phone: [facility] 06-03-2022 15:00-0400 Heart rate 82 /min Mikaela Chavarria MD Work Phone: [facility] 06-03-2022 15:00-0400 Respiratory rate 12 /min Mikaela Chavarria MD Work Phone: [facility] 06-03-2022 15:00-0400 SaO2% (BldA) [Mass fraction] 99 % Mikaela Chavarria MD Work Phone: [facility] 06-03-2022 15:00-0400 Systolic blood pressure 106 mm[Hg] Mikaela Chavarria MD Work Phone: [facility] 04-02-2022 15:00-0400 Body temperature 96.8 [degF] Dr. Mikaela Chavarria Work Phone: [facility] Work Phone: 04-02-2022 15:00-0400 Diastolic blood pressure 82 mm[Hg] Dr. Mikaela Chavarria Work Phone: [facility] Work Phone: 04-02-2022 15:00-0400 Heart rate 104 /min Dr. Mikaela Chavarria Work Phone: [facility] Work Phone: 04-02-2022 15:00-0400 Respiratory rate 18 /min Dr. Mikaela Chavarria Work Phone: [facility] Work Phone: 04-02-2022 15:00-0400 SaO2% (BldA) [Mass fraction] 100 % Dr. Mikaela Chavarria Work Phone: [facility] Work Phone: 04-02-2022 15:00-0400 Systolic blood pressure 112 mm[Hg] Dr. Mikaela Chavarria Work Phone: [facility] Work Phone: 04-02-2022 14:47-0400 Body height 160.[address] Mikaela Chavarria Work Phone: [facility] Work Phone: 04-02-2022 14:47-0400 Body mass index (BMI) [Ratio] 25.7 kg/m2 Dr. Mikaela Chavarria Work Phone: [facility] Work Phone: 04-02-2022 14:47-0400 Body weight 65.[address] Mikaela Chavarria Work Phone: [facility] Work Phone: 03-10-2022 14:40-0400 Body temperature 98.8 [degF] Dr. Mikaela Chavarria Work Phone: [facility] Work Phone: 03-10-2022 14:40-0400 Diastolic blood pressure 65 mm[Hg] Dr. Mikaela Chavarria Work Phone: [facility] Work Phone: 03-10-2022 14:40-0400 Heart rate 89 /min Dr. Mikaela Chavarria Work Phone: [facility] Work Phone: 03-10-2022 14:40-0400 Respiratory rate 16 /min Dr. Mikaela Chavarria Work Phone: [facility] Work Phone: 03-10-2022 14:40-0400 SaO2% (BldA) [Mass fraction] 99 % Dr. Mikaela Chavarria Work Phone: [facility] Work Phone: 03-10-2022 14:40-0400 Systolic blood pressure 100 mm[Hg] Dr. Mikaela Chavarria Work Phone: [facility] Work Phone: 03-10-2022 05:55-0400 Body weight 69.[address] Mikaela Chavarria Work Phone: [facility] Work Phone: 03-08-2022 07:21-0400 Body height 160.[address] Mikaela Chavarria Work Phone: [facility] Work Phone: 03-08-2022 07:21-0400 Body mass index (BMI) [Ratio] 28.3 kg/m2 Dr. Mikaela Chavarria Work Phone: [facility] Work Phone: 03-05-2022 21:03-0400 Body temperature 98 [degF] [facility] Work Phone: 03-05-2022 21:03-0400 Diastolic blood pressure 82 mm[Hg] [facility] Work Phone: 03-05-2022 21:03-0400 Heart rate 91 /min [facility] Work Phone: 03-05-2022 21:03-0400 Respiratory rate 16 /min [facility] Work Phone: 03-05-2022 21:03-0400 SaO2% (BldA) [Mass fraction] 98 % [facility] Work Phone: 03-05-2022 21:03-0400 Systolic blood pressure 125 mm[Hg] [facility] Work Phone: 03-05-2022 17:21-0400 Body height 160.02 cm [facility] Work Phone: 03-05-2022 17:21-0400 Body mass index (BMI) [Ratio] 25.4 kg/m2 [facility] Work Phone: 03-05-2022 17:21-0400 Body weight 65.13 kg [facility] Work Phone: 01-06-2022 05:10-0400 Diastolic blood pressure 84 mm[Hg] [facility] Work Phone: 01-06-2022 05:10-0400 Heart rate 82 /min [facility] Work Phone: 01-06-2022 05:10-0400 Respiratory rate 16 /min [facility] Work Phone: 01-06-2022 05:10-0400 SaO2% (BldA) [Mass fraction] 94 % [facility] Work Phone: 01-06-2022 05:10-0400 Systolic blood pressure 121 mm[Hg] [facility] Work Phone: 01-05-2022 21:04-0400 Body height 160.02 cm [facility] Work Phone: 01-05-2022 21:04-0400 Body mass index (BMI) [Ratio] 30.9 kg/m2 [facility] Work Phone: 01-05-2022 21:04-0400 Body temperature 98.7 [degF] [facility] Work Phone: 01-05-2022 21:04-0400 Body weight 79.37 kg [facility] Work Phone: 12-31-2021 15:36-0400 Diastolic blood pressure 85 mm[Hg] [facility] Work Phone: 12-31-2021 15:36-0400 Heart rate 73 /min [facility] Work Phone: 12-31-2021 15:36-0400 Respiratory rate 16 /min [facility] Work Phone: 12-31-2021 15:36-0400 SaO2% (BldA) [Mass fraction] 99 % [facility] Work Phone: 12-31-2021 15:36-0400 Systolic blood pressure 147 mm[Hg] [facility] Work Phone: 12-31-2021 08:59-0400 Body height 160.02 cm [facility] Work Phone: 12-31-2021 08:59-0400 Body mass index (BMI) [Ratio] 25.7 kg/m2 [facility] Work Phone: 12-31-2021 08:59-0400 Body temperature 97.6 [degF] [facility] Work Phone: 12-31-2021 08:59-0400 Body weight 65.77 kg [facility] Work Phone: 12-28-2021 18:40-0400 Body height 160.02 cm [facility] Work Phone: 12-28-2021 18:40-0400 Body mass index (BMI) [Ratio] 25.6 kg/m2 [facility] Work Phone: 12-28-2021 18:40-0400 Body temperature 98.1 [degF] [facility] Work Phone: 12-28-2021 18:40-0400 Body weight 65.7 kg [facility] Work Phone: 12-28-2021 18:40-0400 Diastolic blood pressure 75 mm[Hg] [facility] Work Phone: 12-28-2021 18:40-0400 Heart rate 98 /min [facility] Work Phone: 12-28-2021 18:40-0400 Respiratory rate 18 /min [facility] Work Phone: 12-28-2021 18:40-0400 SaO2% (BldA) [Mass fraction] 95 % [facility] Work Phone: 12-28-2021 18:40-0400 Systolic blood pressure 133 mm[Hg] [facility] Work Phone: 12-28-2021 18:07-0400 Body temperature 98.91 [degF] Shayy Praisler-Wood SENIOR NET WEB DEVELOPER.REGIONAL WILDLIFE AGENT Work Phone: [facility] 12-28-2021 18:07-0400 Body weight 65.86 kg Shayy Praisler-Wood SENIOR NET WEB DEVELOPER.REGIONAL WILDLIFE AGENT Work Phone: [facility] 12-28-2021 18:07-0400 Diastolic blood pressure 64 mm[Hg] Shayy Praisler-Wood SENIOR NET WEB DEVELOPER.REGIONAL WILDLIFE AGENT Work Phone: [facility] 12-28-2021 18:07-0400 Heart rate 80 /min Shayy Praisler-Wood SENIOR NET WEB DEVELOPER.REGIONAL WILDLIFE AGENT Work Phone: [facility] 12-28-2021 18:07-0400 Respiratory rate 18 /min Shayy Praisler-Wood SENIOR NET WEB DEVELOPER.REGIONAL WILDLIFE AGENT Work Phone: [facility] 12-28-2021 18:07-0400 SaO2% (BldA) [Mass fraction] 99 % Shayy Praisler-Wood SENIOR NET WEB DEVELOPER.REGIONAL WILDLIFE AGENT Work Phone: [facility] 12-28-2021 18:0400 Systolic blood pressure 120 mm[Hg] Shayy Zapata APRN.CNP Work Phone: [facility] Encounters Encounter Date Encounter Type Care Provider Facility Start: 02-28-2025 End: 02-28-2025 [facility] Facility:[facility] Start: 02-28-2025 End: 02-28-2025 Office outpatient visit 25 minutes Karen Collado APRN.CNP Work Phone: [facility] Comment on above: Chronic bilateral lo w back pain, unspecified whether sciatica present (Primary Dx); Pain of left lower extremity; Anxiety; Elevated liver enzymes; Hypothyroidism, unspecified type; STD exposure; Mild intermittent asthma without complication (HCC) Start: 02-28-2025 End: 02-28-2025 [facility] Facility:[facility] Start: 02-16-2025 End: 04-18-2025 Follow-up encounter Karen Collado APRN.CNP Work Phone: Family [facility] Start: 02-14-2025 End: 02-14-2025 [facility] Start: 01-24-2025 End: 01-24-2025 [facility] Karen Collado APRN.CNP Work Phone: Internal [facility] [place] Comment on above: Hypothyroidism, unsp ecified type (Primary Dx); Other fatigue; Dysuria; Anxiety; Recurrent major depressive disorder, in partial remission; Vitamin D deficiency; Annual physical exam Start: 01-24-2025 End: 01-24-2025 [facility] Start: 01-24-2025 End: 01-24-2025 Patient encounter procedure Karen Collado APRN.CNP Work Phone: [facility] Start: 01-19-2025 End: 01-19-2025 Telephone encounter Karen Collado APRN.CNP Work Phone: [facility] [place] Start: 07-07-2024 End: 07-12-2024 ambulatory Mikaela Chavarria MD Work Phone: Internal Medicine [place] [id number] Start: 06-14-2024 End: 06-14-2024 Emergency department patient visit [facility] Facility[facility] Start: 03-14-2024 Telephone encounter Akhil MATIAS Work Phone: [facility] Comment on above: Results Start: 03-13-2024 Telephone encounter Anil Luis MD Work Phone: [facility] Comment on above: Results (BV (+), Tri ch (+)) Start: 03-12-2024 End: 03-12-2024 Patient encounter procedure Nadira Sanderson APRN.REGIONAL WILDLIFE AGENT Work Phone: [facility] Comment on above: Cystitis (Primary Dx ); Encounter for screening examination for sexually transmitted disease Refill Request Start: 03-12-2024 End: 03-12-2024 ambulatory MIKAELA CHAVARRIA Facility:[facility] Start: 12-07-2022 Refill Mikaela Benoit Work Phone: Internal [facility] Comment on above: Med Change Request Start: 12-01-2022 Refill Mikaela Benoit Work Phone: Internal [facility] Comment on above: Med Change Request Start: 11-17-2022 Telephone encounter Mikaela ha MD Work Phone: [facility] Comment on above: Results Start: 11-15-2022 Telephone [...] encounter Mikaela ha MD Work Phone: Family [facility] [place] Comment on above: Orders; Results Start: 08-28-2022 Refill Karen Older SENIOR NET WEB DEVELOPER .REGIONAL WILDLIFE AGENT Work Phone: Internal Medicine [place] Comment on above: Refill Request Start: 08-26-2022 End: 08-26-2022 Patient encounter procedure Mikaela Chavarria MD Work Phone: [facility] [place] Comment on above: Nasal mass (Primary Dx) Start: 08-10-2022 Refill Karen Older SENIOR NET WEB DEVELOPER .REGIONAL WILDLIFE AGENT Work Phone: [facility] [place] Comment on above: Refill Request Start: 08-07-2022 ambulatory Mikaela Benoit Work Phone: Internal Medicine [place] Start: 07-10-2022 Refill Mikaela Benoit Work Phone: [facility] [place] Comment on above: Refill Request Start: 06-13-2022 [...] Mikaela Chavarria MD Work Phone: [facility] [place] Start: 05-25-2022 Refill Mikaela Benoit Work Phone: [facility] [place] Comment on above: Refill Request Start: 04-25-2022 Telephone encounter Mikaela ha MD Work Phone: [facility] [place] Comment on above: Appointment Start: 04-02-2022 End: 04-02-2022 Emergency department patient visit Dr. Mikaela Chavarria Work Phone: [facility] Start: 04-02-2022 End: 04-02-[address] Mikaela Chavarria Work Phone: [facility] Work Phone: Start: 04-02-2022 End: 04-02-[address] Mikaela Chavarria Work Phone: [facility] Start: 03-27-2022 Refill Mikaela Benoit Work Phone: [facility] [place] Comment on above: Med Change Request Start: 03-19-2022 End: 03-19-[address] Mikaela Chavarria Work Phone: [facility] Start: 03-13-2022 End: 03-13-2022 ambulatory Mikaela Chavarria MD Work Phone: Internal [facility] [place] Comment on above: Hypokalemia (Primary Dx); Cyclothymia; Anxiety Start: 03-13-2022 End: 03-13-2022 Telemedicine consultation with patient Mikaela Chavarria MD Work Phone: [facility] Start: 03-09-2022 Non-patient / Non-visit Dr. Mikaela Chavarria Work Phone: [facility] Start: 03-08-2022 Non-patient / Non-visit Dr. Mikaela Chavarria Work Phone: [facility] Start: 03-08-2022 Non-patient / Non-visit Dr. Mikaela Chavarria Work Phone: [facility] Start: 03-08-2022 Non-patient / Non-visit Dr. Mikaela Chavarria Work Phone: [facility] Start: 03-07-2022 Non-patient / Non-visit Dr. Mikaela Chavarria Work Phone: [facility] Start: 03-07-2022 Non-patient / Non-visit Dr. Mikaela Chavarria Work Phone: [facility] Start: 03-07-2022 Non-patient / Non-visit Dr. Mikaela Chavarria Work Phone: [facility] Start: 03-06-2022 Non-patient / Non-visit [facility] Mikael[facility]ria [facility] Start: 03-06-2022 Non-patient / Non-visit Dr. Mikaela Chavarria Work Phone: [facility] Start: 03-05-2022 Non-patient / Non-visit Dr. Mikaela Chavarria Work Phone: [facility] Start: 03-05-2022 End: 03-10-2022 Evaluation and management of inpatient [facility] 3 Start: 01-31-2022 End: 01-31-2022 ambulatory Jackie Sainz APRN.CNP Work Phone: Telemedicine Comment on above: Treatment not availa ble (Primary Dx) Start: 01-31-2022 End: 01-31-2022 Telemedicine consultation with patient Jackie Sainz APRN.CNP Work Phone: [facility] Start: 01-31-2022 Distance Health (Vis it Summary) Shazia Seay Provider External-Non[facility]F Comment on above: Anxiety disorder, un specified - Gastro-esophageal reflux disease without esophagitis Start: 01-31-2022 External Contact Shazia Seay Provi dwaine EXTERNAL-NON [facility] Start: 01-31-2022 Telephone encounter Mikaela ha MD Work Phone: [facility] [place] Comment on above: Patient Update Start: 01-17-2022 Telephone encounter Mikaela ha MD Work Phone: [facility] [place] Comment on above: Opened In Error Start: 01-11-2022 Refill Madeleine Puma RONQUILLOPHYSICAL THERAPY DIRECTOR Work Phone: [facility] [place] Comment on above: Refill Request Start: 01-05-2022 End: 01-06-2022 [facility] Start: 01-01-2022 Telephone encounter Mikaela ha MD Work Phone: Internal [facility] Comment on above: Patient Question Start: 12-31-2021 End: 12-31-2021 Emergency department patient visit [facility] Start: 12-28-2021 End: 12-28-2021 [facility] Start: 12-28-2021 End: 12-28-2021 Patient encounter procedure Shayy Zapata APRN.REGIONAL WILDLIFE AGENT Work Phone: [facility] Comment on above: Nausea and vomiting, unspecified vomiting type (Primary Dx) Start: 12-15-2021 Refill Mikaela Benoit Work Phone: [facility] [place] Comment on above: Refill Request Start: 12-11-2021 ambulatory Mikaela Benoit Work Phone: [facility] [place] Comment on above: Blood test Start: 12-20-2019 End: 12-20-2019 [facility] Start: 11-27-2019 End: 11-27-2019 Emergency department patient visit ROSHNI DO [facility] Procedures Date Procedure Procedure Detail Performing Clinician [...] Detail Author Start: 02-28-2026 Annual PCP Team Collection Manager madisyn Disease Visit Annual PCP Team Chronic Disease Visit [facility] Start: 04-11-2025 Influenza vaccination [facility] Start: 03-31-2025 End: 06-30-2025 Thyrotropin [Units/volume] in Serum or Plasma THYROID STIMULATING HORMONE Lab Routine Hypothyroidism, unspecified type Expected: 03/31/2025, Expires: 06/30/2025 [facility] Work Phone: Comment on above: Expected: 03/31/2025 , Expires: 06/30/2025 Start: 03-28-2025 End: 03-28-2025 Patient encounter procedure 03/28/2025 2:00 PM EDT Office Visit [facility] [place] [address] [place] [address] Karen Collado APRN.REGIONAL WILDLIFE AGENT [address] [place] [address] 4 week follow up [facility] [place] Comment on above: 4 week follow up Start: 03-17-2025 Urine microalbumin profile [facility] Start: 03-07-2025 End: 03-07-2025 Patient encounter procedure 03/07/2025 1:45 PM EDT Appointment Radiology [address] [place] [address] Elevated liver enzymes [R74.8] Radiology Comment on above: Elevated liver enzym es [R74.8] Start: 01-24-2025 End: 04-25-2025 25-hydroxyvitamin D3 [Mass/volume] in Serum or Plasma VITAMIN D 25 HYDROXY Lab Routine Other fatigue Vitamin D deficiency Expected: 01/24/2025, Expires: 04/25/2025 [facility] Comment on above: Expected: 01/24/2025 , Expires: 04/25/2025 Start: 01-24-2025 End: 04-25-2025 CBC W Auto Differential panel - Blood COMPLETE BLOOD COUNT AND DIFFERENTIAL Lab Routine Dysuria Annual physical exam Other fatigue Expected: 01/24/2025, Expires: 04/25/2025 [facility] Comment on above: Expected: 01/24/2025 , Expires: 04/25/2025 Start: 01-24-2025 End: 04-25-2025 Cobalamin (Vitamin B12) [Mass/volume] in Serum or Plasma VITAMIN B12 Lab Routine Other fatigue Expected: 01/24/2025, Expires: 04/25/2025 [facility] Comment on above: Expected: 01/24/2025 , Expires: 04/25/2025 Start: 01-24-2025 End: 04-25-2025 Comprehensive metabolic 2000 panel - Serum or Plasma COMPREHENSIVE METABOLIC PANEL Lab Routine Dysuria Annual physical exam Other fatigue Expected: 01/24/2025, Expires: 04/25/2025 [facility] Comment on above: Expected: 01/24/2025 , Expires: 04/25/2025 Start: 01-24-2025 End: 04-25-2025 Lipid 1996 panel - Serum or Plasma LIPID PANEL, FASTING Lab Routine Annual physical exam Expected: 01/24/2025, Expires: 04/25/2025 [facility] Comment on above: Expected: 01/24/2025 , Expires: 04/25/2025 Start: 01-24-2025 End: 04-25-2025 Thyrotropin [Units/volume] in Serum or Plasma THYROID STIMULATING HORMONE Lab Routine Hypothyroidism, unspecified type Other fatigue Expected: 01/24/2025, Expires: 04/25/2025 [facility] Work Phone: Comment on above: Expected: 01/24/2025 , Expires: 04/25/2025 Start: 01-24-2025 End: 04-25-2025 Thyroxine (T4) free [Mass/volume] in Serum or Plasma T4 FREE/FREE THYROXINE Lab Routine Hypothyroidism, unspecified type Other fatigue Expected: 01/24/2025, Expires: 04/25/2025 [facility] Comment on above: Expected: 01/24/2025 , Expires: 04/25/2025 Start: 01-24-2025 End: 04-25-2025 Triiodothyronine (T3) Free [Mass/volume] in Serum or Plasma T3, FREE Lab Routine Hypothyroidism, unspecified type Other fatigue Expected: 01/24/2025, Expires: 04/25/2025 [facility] Comment on above: Expected: 01/24/2025 , Expires: 04/25/2025 Start: 01-24-2025 End: 04-25-2025 Urinalysis complete panel - Urine URINALYSIS (WITH MICROSCOPIC) WITH CULTURE IF INDICATED Lab Routine Dysuria Other fatigue Expected: 01/24/2025, Expires: 04/25/2025 [facility] Comment on above: Expected: 01/24/2025 , Expires: 04/25/2025 Start: 04-11-2024 Covid-19 Vaccine ( season) Covid-19 Vaccine () [facility] Start: 04-11-2024 Influenza vaccination Influenza Vacc ine (#1) [facility] Start: 04-11-2023 Covid-19 Vaccine () Covid-19 Vaccine () [facility] Start: 12-17-2022 End: 02-16-2023 Thyrotropin [Units/volume] in Serum or Plasma TSH BLD Lab Routine Hypothyroidism, unspecified type Expected: 12/17/2022, Expires: 02/16/2023 [facility] Work Phone: Comment on above: Expected: 12/17/2022 , Expires: 02/16/2023 Start: 11-05-2022 End: 01-05-2023 25-hydroxyvitamin D3 [Mass/volume] in Serum or Plasma VITAMIN D 25 HYDROXY Lab Routine Vitamin D deficiency Expected: 11/05/2022, Expires: 01/05/2023 [facility] Work Phone: Comment on above: Expected: 11/05/2022 , Expires: 01/05/2023 Start: 11-05-2022 End: 01-05-2023 Comprehensive metabolic 2000 panel - Serum or Plasma COMP METABOLIC PANEL Lab Routine Abnormal thyroid function test Screening for lipid disorders Expected: 11/05/2022, Expires: 01/05/2023 [facility] Work Phone: Comment on above: Expected: 11/05/2022 , Expires: 01/05/2023 Start: 11-05-2022 End: 01-05-2023 Hepatitis C virus Ab [Presence] in Serum HEP C AB IA W/CONF SCRN Lab Routine Special screening examination for viral disease Expected: 11/05/2022, Expires: 01/05/2023 [facility] Work Phone: Comment on above: Expected: 11/05/2022 , Expires: 01/05/2023 Start: 11-05-2022 End: 01-05-2023 Lipid 1996 panel - Serum or Plasma LIPID PANEL BASIC Lab Routine Screening for lipid disorders Expected: 11/05/2022, Expires: 01/05/2023 [facility] Work Phone: Comment on above: Expected: 11/05/2022 , Expires: 01/05/2023 Start: 11-05-2022 End: 01-05-2023 Thyrotropin [Units/volume] in Serum or Plasma TSH BLD Lab Routine Abnormal thyroid function test Expected: 11/05/2022, Expires: 01/05/2023 [facility] Work Phone: Comment on above: Expected: 11/05/2022 , Expires: 01/05/2023 Start: 11-05-2022 End: 01-05-2023 Thyroxine (T4) free [Mass/volume] in Serum or Plasma T4 FREE/FREE THYROX Lab Routine Abnormal thyroid function test Expected: 11/05/2022, Expires: 01/05/2023 [facility] Work Phone: Comment on above: Expected: 11/05/2022 , Expires: 01/05/2023 Start: 11-05-2022 End: 01-05-2023 Triiodothyronine (T3) [Mass/volume] in Serum or Plasma T3 BLD Lab Routine Abnormal thyroid function test Expected: 11/05/2022, Expires: 01/05/2023 [facility] Work Phone: Comment on above: Expected: 11/05/2022 , Expires: 01/05/2023 Start: 2022 Mammography MAMMOGRAM [facility] Start: 2022 Screening for malign ant neoplasm of breast Mammogram Screening [facility] Start: 06-03-2022 End: 08-03-2022 25-hydroxyvitamin D3 [Mass/volume] in Serum or Plasma VITAMIN D 25 HYDROXY Lab Routine Vitamin D deficiency Expected: 06/03/2022, Expires: 08/03/2022 [facility] Work Phone: Comment on above: Expected: 06/03/2022 , Expires: 08/03/2022 Start: 06-03-2022 End: 08-03-2022 Hepatitis C virus Ab [Presence] in Serum HEP C AB IA W/CONF SCRN Lab Routine Special screening examination for viral disease Expected: 06/03/2022, Expires: 08/03/2022 [facility] Work Phone: Comment on above: Expected: 06/03/2022 , Expires: 08/03/2022 Start: 06-03-2022 End: 08-03-2022 Thyrotropin [Units/volume] in Serum or Plasma TSH BLD Lab Routine Hypothyroidism, unspecified type Expected: 06/03/2022, Expires: 08/03/2022 [facility] Work Phone: Comment on above: Expected: 06/03/2022 , Expires: 08/03/2022 Start: 04-11-2022 Influenza vaccination [facility] Start: 04-02-2022 [facility] Work Phone: Start: 03-13-2022 End: 05-13-2022 Basic metabolic 2000 panel - Serum or Plasma BASIC METABOLIC PNL Lab Routine Hypokalemia Expected: 03/13/2022, Expires: 05/13/2022 [facility] Work Phone: Comment on above: Expected: 03/13/2022 , Expires: 05/13/2022 Start: 03-11-2022 [facility] Work Phone: Start: 03-10-2022 Patient discharge [facility] Work Phone: Start: 03-08-2022 [facility] Work Phone: Start: 03-08-2022 [facility] Work Phone: Start: 03-06-2022 Catheterization of vein [facility] Work Phone: Start: 03-06-2022 Lipase measurement [facility] Work Phone: Start: 03-06-2022 [facility] Work Phone: Start: 03-05-2022 Following clinical p athway protocol [facility] Work Phone: Start: 03-05-2022 Assessment of risk o f venous thromboembolism [facility] Work Phone: Start: 03-05-2022 Inhalation therapy procedure [facility] Work Phone: Start: 03-05-2022 Insertion of cathete r into peripheral vein [facility] Work Phone: Start: 03-05-2022 Introduction of urin javier catheter [facility] Work Phone: Start: 03-05-2022 Measuring intake and output [facility] Work Phone: Start: 03-05-2022 Oxygen therapy [facility] Work Phone: Start: 03-05-2022 Providing care accor ding to standard [facility] Work Phone: Start: 03-05-2022 Provision of activit y privileges [facility] Work Phone: Start: 03-05-2022 Referral to gastroenterology service [facility] Work Phone: Start: 03-05-2022 Referral to general surgeon [facility] Work Phone: Start: 03-05-2022 Tobacco use cessatio n education [facility] Work Phone: Start: 03-05-2022 [facility] Work Phone: Start: 03-05-2022 Admission procedure [facility] Work Phone: Start: 03-05-2022 Verification routine [facility] Work Phone: Start: 12-28-2021 Bacteria identified in Urine by Culture Urine Culture [facility] Work Phone: Start: 12-12-2021 End: 02-11-2022 Fibrin D-dimer FEU [Mass/volume] in Platelet poor plasma [facility] Work Phone: Comment on above: Expected: 12/12/2021 , Expires: 02/11/2022 Start: 11-02-2019 HPV TESTING HPV TESTING [facility] Start: 11-02-2019 PAP TESTING PAP TESTING [facility] Start: 11-01-2017 Screening for malign ant neoplasm of cervix Cervical Cancer Screening [facility] Start: 2009 HPV Vaccine (1 - 3-d ose SCDM series) HPV Vaccine (1 - 3-dose SCDM series) [facility] Start: 2001 Hepatitis B Vaccine (1 of 3 - 19+ 3-dose series) Hepatitis B Vaccine (1 of 3 - 19+ 3-dose series) [facility] Start: 2000 HEPATITIS C SCREENING HEPATITIS C SC GENNY [facility] Start: 1987 COVID-19 VACCINE (#1) COVID-19 VACCI NE (#1) [facility] Start: 1987 COVID-19 VACCINE (1) COVID-19 VACCIN E (1) [facility] Start: 1982 COVID-19 VACCINE (#1) COVID-19 VACCI NE (#1) [facility] Start: 1982 HEPATITIS B (1 of 3 - 3-dose series) HEPATITIS B (1 of 3 - 3-dose series) [facility] Alanine aminotransfe rase [Enzymatic activity/volume] in Serum or Plasma [facility] Work Phone: Albumin [Mass/volume ] in Serum or Plasma [facility] Work Phone: Alkaline phosphatase [Enzymatic activity/volume] in Serum or Plasma [facility] Work Phone: Amphetamine [Mass/vo lume] in Urine [facility] Work Phone: Anion gap measurement [facility] Work Phone: Aspartate aminotrans ferase [Enzymatic activity/volume] in Serum or Plasma [facility] Work Phone: Bacteria identified in Urine by Culture URINE CULTURE Microbiology Routine Cystitis Ordered: 03/12/2024 [facility] Work Phone: Comment on above: Ordered: 03/12/2024 BACTERIAL VAGINOSIS NAAT BACTERI AL VAGINOSIS NAAT Lab Routine Encounter for screening examination for sexually transmitted disease Ordered: 03/12/2024 [facility] Comment on above: Ordered: 03/12/2024 Benzodiazepine measurement, urine [facility] Work Phone: Bilirubin, total measurement [facility] Work Phone: BUN/Creatinine ratio [facility] Work Phone: Calcium [Mass/volume ] in Serum or Plasma [facility] Work Phone: HARSHAD/TRICHOMONAS NAAT HARSHAD /TRICHOMONAS NAAT Lab Routine Encounter for screening examination for sexually transmitted disease Ordered: 03/12/2024 [facility] Comment on above: Ordered: 03/12/2024 Carbon dioxide, tota l [Moles/volume] in Serum or Plasma [facility] Work Phone: Chlamydia trachomatis+Neisseria gonorrhoeae DNA [Presence] in Unspecified specimen by NELI with probe detection GONORRHEA/CHLAMYDIA NAAT Lab Routine Encounter for screening examination for sexually transmitted disease Ordered: 03/12/2024 [facility] Comment on above: Ordered: 03/12/2024 Chloride [Moles/volu me] in Serum or Plasma [facility] Work Phone: Cocaine measurement, urine [facility] Work Phone: Creatinine [Moles/vo lume] in Serum or Plasma [facility] Work Phone: End: 08-06-2025 DBT Breast - bilateral screening JUDD SCREENING W YUE Radiology Routine Encounter for screening mammogram for breast cancer 1 Occurrences starting 07/07/2024 until 08/06/2025 [facility] Work Phone: Comment on above: 1 Occurrences starti ng 07/07/2024 until 08/06/2025 Ethanol [Mass/volume ] in Serum or Plasma [facility] Work Phone: Glucose [Mass/volume ] in Serum or Plasma [facility] Work Phone: Hematocrit [Volume Fraction] of Blood [facility] Work Phone: Hemoglobin [Mass/vol ume] in Blood [facility] Work Phone: Leukocytes [#/volume ] in Blood [facility] Work Phone: Lipase measurement [facility] Work Phone: End: 09-06-2023 JUDD SCREENING JUDD SCREENING Radiology Routine Encounter for screening mammogram for breast cancer 1 Occurrences starting 08/07/2022 until 09/06/2023 [facility] Work Phone: Comment on above: 1 Clint franco 08/07/2022 until 09/06/2023 Mean corpuscular hemoglobin concentration determination [facility] Work Phone: Mean corpuscular hemoglobin determination [facility] Work Phone: Measurement of 3,4-methylenedioxymethamph etamine in urine [facility] Work Phone: Measurement of renal function [facility] Work Phone: Methadone measuremen t, urine [facility] Work Phone: Neutrophil count [facility] Work Phone: Neutrophil percent differential count [facility] Work Phone: Patient Education [facility] Work Phone: Patient referral [facility] Work Phone: pH of Urine [facility] Work Phone: Phencyclidine [Prese nce] in Urine [facility] Work Phone: Platelets [#/volume] in Blood [facility] Work Phone: Potassium [Moles/vol ume] in Serum or Plasma [facility] Work Phone: Red blood cell count [facility] Work Phone: Red cell distributio n width determination [facility] Work Phone: Sodium [Moles/volume ] in Serum or Plasma [facility] Work Phone: Total protein measurement [facility] Work Phone: Urea nitrogen [Mass/volume] in Serum or Plasma [facility] Work Phone: Urine barbiturate measurement [facility] Work Phone: Urine cannabinoid measurement [facility] Work Phone: Urine opiate measurement [facility] Work Phone: End: 03-30-2026 US Abdomen RUQ US ABD RIGHT UPPER QUADRANT Radiology Routine Elevated liver enzymes 1 Occurrences starting 02/28/2025 until 03/30/2026 [facility] Comment on above: 1 Occurrences starti ng 02/28/2025 until 03/30/2026 End: 03-30-2026 XR Lumbar spine 3 Views XR LUMBAR GENERAL 3V AP/LAT/L5-S1 Radiology Routine Chronic bilateral low back pain, unspecified whether sciatica present 1 Occurrences starting 02/28/2025 until 03/30/2026 [facility] Comment on above: 1 Occurrences starti ng 02/28/2025 until 03/30/2026 End: 03-30-2026 XR Pelvis and Hip - left AP and Lateral frog XR HIP GENERAL 3V PELV/AP/LAT LEFT Radiology Routine Pain of left lower extremity 1 Occurrences starting 02/28/2025 until 03/30/2026 [facility] Comment on above: 1 Occurrences starti ng 02/28/2025 until 03/30/2026 [facility]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 want her to do? She uses [facility] for her pharmacy. she does not know if you want to change the medication? She said she is not having any diarrhea. She can not keep anything down and is dehydrated again. Please advise documented in this encounter [facility] 12-28-2021 History of Present illness Narrative [...] Paternal Uncle P UNCLE X 4 WITH [place] Social History Tobacco Use Smoking status: Former [...] Shayy Zapata APRN.CNP documented in this encounter [facility] 12-28-2021 Instructions Shayy Zapata APRN.CNP - [...] Shayy Zapata APRN.AIDA documented in this encounter [facility] 12-17-2021 Miscellaneous Notes Patient has been [...] Latoya Larose LPN documented in this encounter [facility] 11-03-2014 History of Past i llness Narrative Problem Noted Date Resolved Date History of depression 11/03/2014 11/03/2014 documented as of this encounter (statuses as of 12/13/2021) [facility] History of Past illness Narrative* Problem Noted Date Resolved Date History of depression 11/03/2014 11/03/2014 documented as of this encounter (statuses as of 12/17/2021) [facility] History of Past illness Narrative* Problem Noted Date Resolved Date History of depression 11/03/2014 11/03/2014 documented as of this encounter (statuses as of 12/28/2021) [facility] History of Past illness Narrative* Problem Noted Date Resolved Date History of depression 11/03/2014 11/03/2014 documented as of this encounter (statuses as of 01/08/2022) [facility] History of Past illness Narrative* Problem Noted Date Resolved Date History of depression 11/03/2014 11/03/2014 documented as of this encounter (statuses as of 01/11/2022) [address]2015 History of Past illness Narrative* Problem Noted Date Resolved Date History of depression 11/03/2014 11/03/2014 documented as of this encounter (statuses as of 01/17/2022) [address]2015 History of Past illness Narrative* Problem Noted Date Resolved Date History of depression 11/03/2014 11/03/2014 documented as of this encounter (statuses as of 01/31/2022) [address]2015 History of Past illness Narrative* Problem Noted Date Resolved Date History of depression 11/03/2014 11/03/2014 documented as of this encounter (statuses as of 02/01/2022) [address]2015 History of Past illness Narrative* Problem Noted Date Resolved Date History of depression 11/03/2014 11/03/2014 documented as of this encounter (statuses as of 02/02/2022) [address]2015 History of Past illness Narrative* Problem Noted Date Resolved Date History of depression 11/03/2014 11/03/2014 documented as of this encounter (statuses as of 03/13/2022) [address]2015 History of Past illness Narrative* Problem Noted Date Resolved Date History of depression 11/03/2014 11/03/2014 documented as of this encounter (statuses as of 03/28/2022) [address]2015 History of Past illness Narrative* Problem Noted Date Resolved Date History of depression 11/03/2014 11/03/2014 documented as of this encounter (statuses as of 04/25/2022) [address] History of Past illness Narrative* Problem Noted Date Resolved Date History of depression 11/03/2014 11/03/2014 documented as of this encounter (statuses as of 06/03/2022) [address] History of Past illness Narrative* Problem Noted Date Resolved Date History of depression 11/03/2014 11/03/2014 documented as of this encounter (statuses as of 06/07/2022) [address] History of Past illness Narrative* Problem Noted Date Resolved Date History of depression 11/03/2014 11/03/2014 documented as of this encounter (statuses as of 06/17/2022) [address] History of Past illness Narrative* Problem Noted Date Resolved Date History of depression 11/03/2014 11/03/2014 documented as of this encounter (statuses as of 07/11/2022) [address] History of Past illness Narrative* Problem Noted Date Resolved Date History of depression 11/03/2014 11/03/2014 documented as of this encounter (statuses as of 08/15/2022) [address] History of Past illness Narrative* Problem Noted Date Resolved Date History of depression 11/03/2014 11/03/2014 documented as of this encounter (statuses as of 08/15/2022) [address] History of Past illness Narrative* Problem Noted Date Resolved Date History of depression 11/03/2014 11/03/2014 documented as of this encounter (statuses as of 08/26/2022) [address] History of Past illness Narrative* Problem Noted Date Resolved Date History of depression 11/03/2014 11/03/2014 documented as of this encounter (statuses as of 08/29/2022) [address] History of Past illness Narrative* Problem Noted Date Resolved Date History of depression 11/03/2014 11/03/2014 documented as of this encounter (statuses as of 11/05/2022) [address] History of Past illness Narrative* Problem Noted Date Resolved Date History of depression 11/03/2014 11/03/2014 documented as of this encounter (statuses as of 11/08/2022) [address] History of Past illness Narrative* Problem Noted Date Resolved Date History of depression 11/03/2014 11/03/2014 documented as of this encounter (statuses as of 11/08/2022) [address] History of Past illness Narrative* Problem Noted Date Resolved Date History of depression 11/03/2014 11/03/2014 documented as of this encounter (statuses as of 11/12/2022) [address] History of Past illness Narrative* Problem Noted Date Resolved Date History of depression 11/03/2014 11/03/2014 documented as of this encounter (statuses as of 11/15/2022) [address] History of Past illness Narrative* Problem Noted Date Resolved Date History of depression 11/03/2014 11/03/2014 documented as of this encounter (statuses as of 11/26/2022) [facility] History of Past illness Narrative* Problem Noted Date Resolved Date History of depression 11/03/2014 11/03/2014 documented as of this encounter (statuses as of 12/03/2022) [facility] History of Past illness Narrative* Problem Noted Date Resolved Date History of depression 11/03/2014 11/03/2014 documented as of this encounter (statuses as of 12/13/2022) [facility] note* Diagnosis Deep vein thrombosis (DVT) of proximal lower extremity, unspecified chronicity, unspecified laterality (HCC)- Primary documented in this encounter [facility] note* Diagnosis Mild intermittent asthma without complication Unspecified asthma documented in this encounter [facility] note* Diagnosis Nausea and vomiting, unspecified vomiting type- Primary documented in this encounter [facility] noteNo assessment information availableWAdena Fayette [facility] Work Phone: evaluation note* Diagnosis Mild intermittent asthma without complication Unspecified asthma documented in this encounter [facility] note* Diagnosis Anxiety Anxiety state, unspecified documented in this encounter [facility] note* Diagnosis Anxiety Anxiety state, unspecified documented in this encounter [facility] note* Diagnosis Treatment not available- Primary Procedure not carried out for other reasons documented in this encounter [facility] note* Diagnosis Treatment not available- Primary Procedure not carried out for other reasons documented in this encounter [facility] note* Diagnosis Onset Date Resolution Status Abdominal pain, acute acute Acute pancreatitis acute Gallbladder sludge acute [facility] Work Phone: Evaluation note* Diagnosis Onset Date Resolution Status Abdominal pain, acute acute Acute gallstone pancreatitis acute Acute pancreatitis acute Gallbladder sludge acute Status post laparoscopic cholecystectomy [facility] Work Phone: evaluation note* Diagnosis Hypokalemia- Primary Hypopotassemia Cyclothymia Cyclothymic disorder Anxiety Anxiety state, unspecified documented in this encounter [facility] note* Diagnosis Onset Date Resolution Status Status post laparoscopic cholecystectomy acute Abdominal pain, acute resolv ed Acute gallstone pancreatitis resolved Acute pancreatitis resolved Gallbladder sludge resolved Status post laparoscopic cholecystectomy acute [facility] Work Phone: Evaluation note* Diagnosis Cyclothymia- Primary [...] Hypothyroidism, unspecified type [facility] Diagnosis Mild intermittent asthma without complication Unspecified asthma [facility]* Diagnosis Encounter for screening mammogram for breast cancer documented [facility]* Diagnosis Nasal mass- Primary Swelling, mass, or lump in head and neck documented [facility]* Diagnosis Mild intermittent asthma without complication Unspecified asthma [facility]* Diagnosis Special screening examination for viral disease- Primary Special screening examination for unspecified viral disease Abnormal thyroid function test Nonspecific abnormal results of thyroid function study Screening for lipid disorders Vitamin D deficiency Unspecified vitamin D deficiency [facility]* Diagnosis Moderate episode of recurrent major depressive disorder (HCC)- Primary Mood disorder (HCC) Unspecified episodic mood disorder Attention deficit hyperactivity disorder (ADHD), unspecified ADHD type Insomnia, unspecified type documented [facility]* Diagnosis Nasal discomfort- Primary Other diseases of nasal cavity and sinuses [facility] Diagnosis Hypothyroidism, unspecified type- Primary Vitamin D deficiency Unspecified vitamin D deficiency documented [facility]* Diagnosis Hypothyroidism, unspecified type documented in this encounter [facility] note* Diagnosis Vitamin D deficiency Unspecified vitamin D deficiency [facility] Diagnosis Cystitis- Primary Cystitis, unspecified Encounter for screening examination for sexually transmitted disease documented [facility] this [facility]* Diagnosis Hypothyroidism, unspecified type documented in this encounter [facility] note* Diagnosis Depression- Primary Depressive disorder, [...] health care facility documented in this encounter [facility] note* Diagnosis Depression- Primary Depressive disorder, [...] (HCC) Unspecified asthma documented in this encounter [facility] note* Diagnosis Depression- Primary Depressive disorder, not elsewhere classified Anxiety Anxiety state, unspecified Anxiety- Primary Anxiety state, unspecified Vitamin D deficiency Unspecified vitamin D deficiency [facility] Additional Instructions Your urine appeared to possibly be infected, we sent it for a culture, take the antibiotics and follow-up with your doctor for the results and reevaluation.[facility] Work Phone: Hospital Discharge instructions Additional Instructions [...] Make sure you are drinking lots of fluids.[facility] Work Phone: Hospital Discharge instructions Additional Instructions Try the Reglan instead of the Compazine or Phenergan. Do not take them together. [facility] Work Phone: Hospital Discharge instructionsWAdena [facility] Work Phone: [facility] Discharge instructionsWAdena [facility] Work Phone: Reason for referral (narrative)* Diagnostic Procedure Only (Routine) - Pending Review Specialty Diagnoses / Procedures Referred By Contkelly t Referred To Contact [facility] Diagnoses Encounter for screening mammogram for breast cancer Procedures JUDD SCREENING SCREENING MAMMOGRAPHY BI 2-VIEW BREAST INC CAD Mikaela Chavarria MD [address] [place] [address] [facility] [address] [place] [address] Referral ID Status Reason Start Date Expiration Date Visits Requested Visits Authorized [id number] Pending Review Auto-Generat ed Referral 2 09/06/2023 1 [facility] Diagnostic Procedure Only (Routine) - New Request Specialty Diagnoses / Procedures Referred By Contac t Referred To Contact [facility] Diagnoses Encounter for screening mammogram for breast cancer Procedures JUDD SCREENING W YUE SCREENING DIGITAL BREAST TOMOSYNTHESIS BI SCREENING MAMMOGRAPHY BI 2-VIEW BREAST INC CAD Mikaela Chavarria MD [address] [place] [address] [facility] [address] [facility] [place] [address] Referral ID Status Reason Start Date Expiration Date Visits Requested Visits Authorized [id number] New Request Auto-Generat ed Referral 4 08/06/2025 1 1 [facility] Summary Purpose Family History Relationship Condition Age at Onset Recorded Date/T burak father Cardiac disease Unknown mother Cerebrovascular accident (CVA) Unknown Advance Directives Documents on File Type Date Recorded 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 Advance Directive(s) 05/12/2021 1:53 AM Advance Directive Response Recorded Date/ Time Living Will No December 28, 2021 6 :47pm Power of Insecticide Supervisor No December 28, 2021 6:47pm Advance Directive Response Recorded Date/ Time Living Will No December 31, 2021 9 :01am Power of Insecticide Supervisor No December 31, 2021 9:01am Advance Directive Response Recorded Date/ Time Living Will No January 05, 2022 9 :40pm Power of Insecticide Supervisor No January 05, 2022 9:40pm Advance Directive Response Recorded Date/ Time Living Will No March 05, 2022 5:50pm Power of Insecticide Supervisor No March 05 5:50pm Advance Directive Response Recorded Date/ Time Living Will No March 05, 2022 10:16pm Power of Insecticide Supervisor No March 05 2 10:16pm Advance Directive Response Recorded Date/ Time Living Will No April 02 2 3:34pm Power of Insecticide Supervisor No April 02 022 3:34pm Medications Administered [...] abnormal finding Procedures CONSULT TO GYNECOLOGY OFFICE/OUTPATIENT [facility] 60-74 MINUTES Mikaela Chavarria MD [address] [place] [address] Referral ID Status Reason Start Date Expiration Date Visits Requested Visits Authorized [id number] Pending Review PCP Requested Referral Auto-Generate d Referral 2 06/03/2023 1 1 Specialty Diagnoses / Procedures Referred By Chiquis fortune Referred To Contact Ent - Otolaryngology Diagnoses Nasal mass Procedures CONSULT TO ENT OFFICE/OUTPATIENT [facility] 60-74 MINUTES Mikaela Chavarria MD [address] [place] [address] Referral ID Status Reason Start Date Expiration Date Visits Requested Visits Authorized [id number] Pending Review PCP Requested Referral 08/26/2022 08/26/2023 1 1 Additional Source Comments INFORMATION SOURCE (unrecogn ized section and content) DATE CREATED AUTHOR 01/25/2020 [facility] DATE CREATED AUTHOR AUTHOR'S ORGANIZ ATION 05/15/2021 [facility] DATE CREATED AUTHOR AUTHOR'S ORGANIZ ATION 05/20/2021 [facility] DATE CREATED AUTHOR AUTHOR'S ORGANIZ ATION 07/10/2024 [facility] DATE CREATED AUTHOR AUTHOR'S ORGANIZ ATION 03/04/2025 [facility] Source Comments (unrecognize d section and content) In the event this informatio n is protected by the Federal Confidentiality of Alcohol and Drug Abuse Patient Records regulations: The Federal rules restrict any use of the information to criminally investigate or prosecute any alcohol or drug abuse patient.[facility] the event this information is protected by the Federal Confidentiality of Alcohol and Drug Abuse Patient Records regulations: The Federal rules restrict any use of the information to criminally investigate or prosecute any alcohol or drug abuse patient.[facility] the event this information is protected by the Federal Confidentiality of Alcohol and Drug Abuse Patient Records regulations: The Federal rules restrict any use of the information to criminally investigate or prosecute any alcohol or drug abuse patient.[facility] the event this information is protected by the Federal Confidentiality of Alcohol and Drug Abuse Patient Records regulations: The Federal rules restrict any use of the information to criminally investigate or prosecute any alcohol or drug abuse patient.[facility] the event this information is protected by the Federal Confidentiality of Alcohol and Drug Abuse Patient Records regulations: The Federal rules restrict any use of the information to criminally investigate or prosecute any alcohol or drug abuse patient.[facility] the event this information is protected by the Federal Confidentiality of Alcohol and Drug Abuse Patient Records regulations: The Federal rules restrict any use of the information to criminally investigate or prosecute any alcohol or drug abuse patient.[facility] the event this information is protected by the Federal Confidentiality of Alcohol and Drug Abuse Patient Records regulations: The Federal rules restrict any use of the information to criminally investigate or prosecute any alcohol or drug abuse patient.[facility] the event this information is protected by the Federal Confidentiality of Alcohol and Drug Abuse Patient Records regulations: The Federal rules restrict any use of the information to criminally investigate or prosecute any alcohol or drug abuse patient.[facility] HospitalIn the event this information is protected by the Federal Confidentiality of Alcohol and Drug Abuse Patient Records regulations: The Federal rules restrict any use of the information to criminally investigate or prosecute any alcohol or drug abuse patient.[facility] the event this information is protected by the Federal Confidentiality of Alcohol and Drug Abuse Patient Records regulations: The Federal rules restrict any use of the information to criminally investigate or prosecute any alcohol or drug abuse patient.[facility] the event this information is protected by the Federal Confidentiality of Alcohol and Drug Abuse Patient Records regulations: The Federal rules restrict any use of the information to criminally investigate or prosecute any alcohol or drug abuse patient.[facility]In the event this information is protected by the Federal Confidentiality of Alcohol and Drug Abuse Patient Records regulations: The Federal rules restrict any use of the information to criminally investigate or prosecute any alcohol or drug abuse patient.[facility] HospitalIn the event this information is protected by the Federal Confidentiality of Alcohol and Drug Abuse Patient Records regulations: The Federal rules restrict any use of the information to criminally investigate or prosecute any alcohol or drug abuse patient.[facility] HospitalIn the event this information is protected by the Federal Confidentiality of Alcohol and Drug Abuse Patient Records regulations: The Federal rules restrict any use of the information to criminally investigate or prosecute any alcohol or drug abuse patient.[facility]In the event this information is protected by the Federal Confidentiality of Alcohol and Drug Abuse Patient Records regulations: The Federal rules restrict any use of the information to criminally investigate or prosecute any alcohol or drug abuse patient.[facility] the event this information is protected by the Federal Confidentiality of Alcohol and Drug Abuse Patient Records regulations: The Federal rules restrict any use of the information to criminally investigate or prosecute any alcohol or drug abuse patient.[facility] HospitalIn the event this information is protected by the Federal Confidentiality of Alcohol and Drug Abuse Patient Records regulations: The Federal rules restrict any use of the information to criminally investigate or prosecute any alcohol or drug abuse patient.[facility] HospitalIn the event this information is protected by the Federal Confidentiality of Alcohol and Drug Abuse Patient Records regulations: The Federal rules restrict any use of the information to criminally investigate or prosecute any alcohol or drug abuse patient.[facility] HospitalIn the event this information is protected by the Federal Confidentiality of Alcohol and Drug Abuse Patient Records regulations: The Federal rules restrict any use of the information to criminally investigate or prosecute any alcohol or drug abuse patient.[facility] HospitalIn the event this information is protected by the Federal Confidentiality of Alcohol and Drug Abuse Patient Records regulations: The Federal rules restrict any use of the information to criminally investigate or prosecute any alcohol or drug abuse patient.[facility] HospitalIn the event this information is protected by the Federal Confidentiality of Alcohol and Drug Abuse Patient Records regulations: The Federal rules restrict any use of the information to criminally investigate or prosecute any alcohol or drug abuse patient.[facility] HospitalIn the event this information is protected by the Federal Confidentiality of Alcohol and Drug Abuse Patient Records regulations: The Federal rules restrict any use of the information to criminally investigate or prosecute any alcohol or drug abuse patient.[facility] HospitalIn the event this information is protected by the Federal Confidentiality of Alcohol and Drug Abuse Patient Records regulations: The Federal rules restrict any use of the information to criminally investigate or prosecute any alcohol or drug abuse patient.[facility] HospitalIn the event this information is protected by the Federal Confidentiality of Alcohol and Drug Abuse Patient Records regulations: The Federal rules restrict any use of the information to criminally investigate or prosecute any alcohol or drug abuse patient.[facility] HospitalIn the event this information is protected by the Federal Confidentiality of Alcohol and Drug Abuse Patient Records regulations: The Federal rules restrict any use of the information to criminally investigate or prosecute any alcohol or drug abuse patient.[facility] HospitalIn the event this information is protected by the Federal Confidentiality of Alcohol and Drug Abuse Patient Records regulations: The Federal rules restrict any use of the information to criminally investigate or prosecute any alcohol or drug abuse patient.[facility] HospitalIn the event this information is protected by the Federal Confidentiality of Alcohol and Drug Abuse Patient Records regulations: The Federal rules restrict any use of the information to criminally investigate or prosecute any alcohol or drug abuse patient.[facility] HospitalIn the event this information is protected by the Federal Confidentiality of Alcohol and Drug Abuse Patient Records regulations: The Federal rules restrict any use of the information to criminally investigate or prosecute any alcohol or drug abuse patient.[facility] HospitalIn the event this information is protected by the Federal Confidentiality of Alcohol and Drug Abuse Patient Records regulations: The Federal rules restrict any use of the information to criminally investigate or prosecute any alcohol or drug abuse patient.[facility] HospitalIn the event this information is protected by the Federal Confidentiality of Alcohol and Drug Abuse Patient Records regulations: The Federal rules restrict any use of the information to criminally investigate or prosecute any alcohol or drug abuse patient.[facility] HospitalIn the event this information is protected by the Federal Confidentiality of Alcohol and Drug Abuse Patient Records regulations: The Federal rules restrict any use of the information to criminally investigate or prosecute any alcohol or drug abuse patient.[facility] HospitalIn the event this information is protected by the Federal Confidentiality of Alcohol and Drug Abuse Patient Records regulations: The Federal rules restrict any use of the information to criminally investigate or prosecute any alcohol or drug abuse patient.[facility] HospitalIn the event this information is protected by the Federal Confidentiality of Alcohol and Drug Abuse Patient Records regulations: The Federal rules restrict any use of the information to criminally investigate or prosecute any alcohol or drug abuse patient.[facility] HospitalIn the event this information is protected by the Federal Confidentiality of Alcohol and Drug Abuse Patient Records regulations: The Federal rules restrict any use of the information to criminally investigate or prosecute any alcohol or drug abuse patient.[facility] HospitalIn the event this information is protected by the Federal Confidentiality of Alcohol and Drug Abuse Patient Records regulations: The Federal rules restrict any use of the information to criminally investigate or prosecute any alcohol or drug abuse patient.[facility] HospitalIn the event this information is protected by the Federal Confidentiality of Alcohol and Drug Abuse Patient Records regulations: The Federal rules restrict any use of the information to criminally investigate or prosecute any alcohol or drug abuse patient.[facility] HospitalIn the event this information is protected by the Federal Confidentiality of Alcohol and Drug Abuse Patient Records regulations: The Federal rules restrict any use of the information to criminally investigate or prosecute any alcohol or drug abuse patient.[facility] HospitalIn the event this information is protected by the Federal Confidentiality of Alcohol and Drug Abuse Patient Records regulations: The Federal rules restrict any use of the information to criminally investigate or prosecute any alcohol or drug abuse patient.[facility] HospitalIn the event this information is protected by the Federal Confidentiality of Alcohol and Drug Abuse Patient Records regulations: The Federal rules restrict any use of the information to criminally investigate or prosecute any alcohol or drug abuse patient.[facility] Care Teams (unrecognized sec tion and content) Alterations Manager Relationship Specialty Start Date End Date Mikaela Chavarria MD [address] [place] [address] PCP - General Internal Medicine 03/06/15 Alterations Manager Relationship Specialty Start Date End Date Mikaela Chavarria MD [address] [place] [address] PCP - General Internal Medicine 03/06/15 Alterations Manager Relationship Specialty Start Date End Date Mikaela Chavarria MD [address] [place] [address] PCP - General Internal Medicine 03/06/15 Alterations Manager Relationship Specialty Start Date End Date Mikaela Chavarria MD [address] [place] [address] PCP - General Internal Medicine 03/06/15 Alterations Manager Relationship Specialty Start Date End Date Mikaela Chavarria MD [address] [place] [address] PCP - General Internal Medicine 03/06/15 Alterations Manager Relationship Specialty Start Date End Date Mikaela Chavarria MD [address] [place] [address] PCP - General Internal Medicine 03/06/15 Alterations Manager Relationship Specialty Start Date End Date Mikaela Chavarria MD [address] [facility] [place] [address] PCP - General Internal Medicine 03/06/15 Alterations Manager Relationship Specialty Start Date End Date Mikaela Chavarria MD [address] [facility] [place] [address] PCP - General Internal Medicine 03/06/15 Alterations Manager Relationship Specialty Start Date End Date Mikaela Chavarria MD [address] [facility] [place] [address] PCP - General Internal Medicine 03/06/15 Alterations Manager Relationship Specialty Start Date End Date Mikaela Chavarria MD [address] [facility] [place] [address] PCP - General Internal Medicine 03/06/15 Alterations Manager Relationship Specialty Start Date End Date Mikaela Chavarria MD [address] [facility] [place] [address] PCP - General Internal Medicine 03/06/15 Alterations Manager Relationship Specialty Start Date End Date Mikaela Chavarria MD [address] [facility] [place] [address] PCP - General Internal Medicine 03/06/15 Alterations Manager Relationship Specialty Start Date End Date Mikaela Chavarria MD [address] [place] [address] PCP - General Internal Medicine 03/06/15 Alterations Manager Relationship Specialty Start Date End Date Mikaela Chavarria MD [address] [facility] [place] [address] PCP - General Internal Medicine 03/06/15 Alterations Manager Relationship Specialty Start Date End Date Mikaela Chavarria MD [address] [facility] [place] [address] PCP - General Internal Medicine 03/06/15 Alterations Manager Relationship Specialty Start Date End Date Mikaela Chavarria MD [address] [facility] [place] [address] PCP - General Internal Medicine 03/06/15 Alterations Manager Relationship Specialty Start Date End Date Mikaela Chavarria MD [address] [facility] [place] [address] PCP - General Internal Medicine 03/06/15 Alterations Manager Relationship Specialty Start Date End Date Mikaela Chavarria MD [address] [place] [address] PCP - General Internal Medicine 03/06/15 Alterations Manager Relationship Specialty Start Date End Date Mikaela Chavarria MD [address] [place] [address] PCP - General Internal Medicine 03/06/15 Alterations Manager Relationship Specialty Start Date End Date Mikaela Chavarria MD [address] [place] [address] PCP - General Internal Medicine 03/06/15 Alterations Manager Relationship Specialty Start Date End Date Mikaela Chavarria MD [address] [place] [address] PCP - General Internal Medicine 03/06/15 Karen Collado APRN.REGIONAL WILDLIFE AGENT [address] [place] [address] Director Sports Internal Medicine 07/18/24 Alterations Manager Relationship Specialty Start Date End Date Mikaela Chavarria MD [address] [place] [address] PCP - General Internal Medicine 03/06/15 Karen Collado APRN.REGIONAL WILDLIFE AGENT [address] [place] [address] Director Sports Internal Medicine 07/18/24 Alterations Manager Relationship Specialty Start Date End Date Mikaela Chavarria MD [address] [place] [address] PCP - General Internal Medicine 03/06/15 Karen Collado, SENIOR NET WEB DEVELOPER.REGIONAL WILDLIFE AGENT [address] [place] [address] Director Sports Internal Medicine 07/18/24 Alterations Manager Relationship Specialty Start Date End Date Mikaela Chavarria MD [address] [place] [address] PCP - General Internal Medicine 03/06/15 Karen Collado, SENIOR NET WEB DEVELOPER.REGIONAL WILDLIFE AGENT [address] [place] [address] Director Sports Internal Medicine 07/18/24 Reason for Visit (unrecogniz ed section and content) Reason Onset Date Comments Refill Request 12/15/2021 Reason Comments Vomiting vomiting and lighthe aded x 2 days Specialty Diagnoses / Procedures Referred By Contkelly t Referred To Contact Internal Medicine / [facility] Diagnoses throwing up for 2 days, light headed nausea Procedures URGENT CARE Self [facility] [address] [place] [address] Referral ID Status Reason Start Date Expiration Date Visits Requested Visits Authorized [id number] Authorized Patient Cleared - Qualified 100% FAS [...] headed nausea Procedures URGENT CARE Self, [facility] [address] [place] [address] Reason Comments Med Change Request Reason Comments Appointment Reason Onset Date Comments Recheck discuss meds Immunizations 06/03/2022 Flu vaccination Specialty Diagnoses / Procedures Referred By Chiquis t Referred To Contact Diagnoses VIDEO VISIT Procedures VIDEO VISIT [facility] [address] [place] [id number] [address] Referral ID Status Reason Start Date Expiration Date Visits Requested Visits Authorized [id number] Authorized Patient Cleared - Qualified 100% FAS [...] Contact Diagnoses n/a Procedures [facility] Referral ID Status Reason Start Date Expiration Date Visits Requested Visits Authorized [id number] Authorized Patient Cleared - Qualified 100% FAS 08/23/2022 11/21/2022 99 99 Reason Comments Refill Request Reason Comments Orders Results Reason Comments Follow Up h/a's and has had a fever with body aches x 1 day took aleve this morning at 8:30a Specialty Diagnoses / Procedures Referred By Chiquis t Referred To Contact Diagnoses Consult/Test/Treat Procedures Consult/Test/Treat Mikaela Chavarria MD [address] [place] [address] [facility] Dept Referral ID Status Reason Start Date Expiration Date Visits Requested Visits Authorized [id number] Authorized Patient Cleared - Qualified 100% FAS 11/08/2022 02/06/2023 99 99 Reason Comments Behavioral Health Social Work Reason Comments Consult Nasal mass- left jason e- discomfort- sx for the last 6 months Specialty Diagnoses / Procedures Referred By Chiquis fortune Referred To Contact Ent - Otolaryngology Diagnoses Nasal mass Procedures CONSULT TO ENT OFFICE/OUTPATIENT NEW HIGH MDM 60-74 MINUTES Mikaela Chavarria MD [address] [place] [address] Referral ID Status Reason Start Date Expiration Date Visits Requested Visits Authorized [id number] Pending Review PCP Requested Referral 08/26/2022 08/26/2023 [...] BE BASED ON THE PRIMARY CLINICAL RECORDS. [employer] provides no warranty or guarantee of the accuracy or completeness of information in this document.
[2025-06-25 03:51] LABS: Magnesium 2.0 mg/dL (1.5-2.2)
[2025-06-25 04:15] LABS: Reflex Lactate? Y
[2025-06-25 05:01] LABS: Hematocrit 23.3 % (37-47); Hemoglobin 7.6 g/dL (12.0-15.0); Immature Granulocytes Count 0.040 X10^3/uL (0.0-0.0); Mean Corp Hgb Conc 32.6 g/dL (32-36); Mean Corpuscular Volume 95.5 fL (81-99); Mean Platelet Vol. 9.3 fl (6.2-12.0); NRBC Flagged by Analyzer 0 % (0-5); POSITIVE MORPHOLOGY YES; Platelet Count 275 K/mm3 (150-450); RBC Distribution Width CV 20.1 % (11.6-14.6); RBC Distribution Width SD 70.5 fl (35.1-43.9); Red Blood Count 2.44 M/mm3 (4.2-5.4); White Blood Count 5.7 K/mm3 (4.4-11.0)
[2025-06-25 05:07] LABS: Differential Indicated SCAN CRITERIA MET
[2025-06-25] MEDS: 0.9% Saline Lock 10 ML Syringe IV (05:40)
[2025-06-25] MEDS: 0.9% Normal Saline (1000mL) 1,000 ML 100 ML IV (05:40)
[2025-06-25] MEDS: Piperacil/Tazobactam 3.375 GM in 0.9% Normal Saline (50mL MB+) 50 ML IV ×3 (05:40→22:08)
[2025-06-25] MEDS: Nicotine (PBKC) 21 MG Patch TD (05:46)
[2025-06-25 05:48] LABS: Differential Comment SCANNED
[2025-06-25 05:49] LABS: Anisocytosis RARE; Polychromasia RARE; Red Cell Morphology NORM C+C NORMAL (NORM C&C)
--- NOTE | 2025-06-25 05:49 | CON.PCM.CC_ITS ---
HPI Consult Data Date of Consult: 06/25/25 HPI Narrative HPI Narrative: ROQUE VIVEROS, is a 44yo F w/ asthma, h/o demi?s thyroiditis, h/o UTI, anxiety/depression, chronic anemia, tobacco use who was admitted with weakness, malaise, diarrhea, weight loss. ?She has had progressive weight loss for past few months, but then rapidly over the past week. She has not weighed herself but feels she looks thinner/emaciated. Reports diarrhea, intermittent abd pain, N/V, mild productive cough for the past week or so but no abd sx before that. No fevers/chills, dysuria. Last treated for UTI abt 3-4 months ago. No recent uncooked/unusual foods, no recent travel. She was noted to be borderline hypotensive and mildly tachycardic on arrival, with lactate 5.8. Admitted to ICU for closer monitoring. UA suggestive of UTI as well. Started on empiric abx and given 2L IVF. She reports SBP normally runs 90-100 at home. Reports drinking EtOH 2-3x per week, usually 1-3 drinks at a time. Smokes tobacco and vapes. Denies illicits. Family history reviewed and not relevant to current presentation. ROS: 12-point ROS negative except as per HPI [facility] Medical History Tobacco use Alcohol use Anxiety and depression Asthma Hx of fracture of pelvis Demi's thyroiditis Home Medications ?Medication ?Instructions ?Recorded ?Last Taken ?Type alprazolam 1 mg tablet 1 mg PO DAILY PRN Anxiety Unknown History albuterol sulfate 90 mcg/actuation 2 puff inhalation Q 4H PRN 03/05/22 Unknown History aerosol inhaler Shortness Of Breath Or Wheez ing potassium chloride 20 mEq 20 meq PO DAILY potassium #1 0 tabs 03/10/22 Unknown Rx tablet,extended release ondansetron 4 mg disintegrating 4 mg PO Q8H PRN PRN Na usea #10 tabs 06/14/24 Unknown Rx tablet ergocalciferol (vitamin D2) 1,250 1,250 mcg PO DAILY d eficency 06/25/25 Unknown History mcg (50,000 unit) capsule levothyroxine 50 mcg tablet 50 mcg PO DAILY thyroid Unknown History Allergy/AdvReac Type Severity Reaction Status Date / Time No Known Allergies Allergy Verified 06/24/25 23:33 Family History Father Heart disease Mother CVA (cerebral vascular accident) Surgical History Status post laparoscopic cholecystectomy History of pelvic surgery Hx of section H/O tubal ligation Social History household members: family and children Smoking Status: Current every day smoker tobacco type: e-cigarettes Electronic Cigarette Use: with nicotine alcohol intake: current alcohol intake frequency: 0-2 drinks per day details: Drinks 1 vodka drink 1-2 ounces up to once q HS. substance use type: does not use Objective Data Objective Data Vital Signs: Vital Signs Last response 3 Temperature 37.1 C 06/25/25 05:30 Temperature Source Oral 06/25/25 05:30 Pulse Rate 106 H 06/25/25 05:30 Respiratory Rate 21 H 06/25/25 05:30 Respiratory Effort Normal, Non-Labored 06/25/25 00:48 Respiratory Pattern Normal 06/25/25 00:48 Blood Pressure 95/53 L 06/25/25 05:30 Blood Pressure Mean 67 06/25/25 05:30 Blood Pressure Source Monitor 06/25/25 04:35 Blood Pressure Position Semi-Fowlers 06/25/25 04:35 Blood Pressure Location Left Arm 06/25/25 04:35 Pulse Ox 100 06/25/25 05:30 Oxygen Delivery Method Room Air 06/25/25 05:30 I&O: I&O Last 24 Hours 3 06/24/25 06/24/25 06/25/25 11:59 23:59 11:59 Intake Total 2830.00 / 2830.00 Balance 2830.00 / 2830.00 I&O: Total Stay 3 06/24/25 23:30 thru 06/25/25 05:34 Intake Total 2830.00 Balance 2830.00 Current Meds Ordered / Administered: Current meds ordered / Administered 3 Generic Name Dose Route Start Last Admin Trade Name Freq PRN Reason Stop Dose Admin Acetaminophen 650 mg 06/25/25 04:30 Acetaminophen 325 Mg Tablet PO Q4H PRN PRN Fever, pain 1-05/20 Al Hydroxide/Mg Hydroxide 30 ml 06/25/25 04:30 Mag Hydrox/Al Hydrox/Simeth 30 Ml Udc PO Q6H PRN PRN Gastric Burning Albuterol Sulfate 2.5 mg 06/25/25 04:30 Albuterol 2.5 Mg/3 Ml Vial.Neb. INHALATION Q2H PRN PRN Dyspnea, wheezing Alprazolam 1 mg 06/25/25 04:30 Alprazolam 0.5 Mg Tablet PO DAILY PRN PRN ANXIETY Bupropion HCl 300 mg 06/25/25 10:00 Bupropion (Xl) 300 Mg Tablet.Xl PO DAILY JESSICA Enoxaparin Sodium 40 mg 06/25/25 10:00 Enoxaparin 40 Mg/0.4 Ml Syringe SC DAILY JESSICA Fluoxetine HCl 20 mg 06/25/25 10:00 Fluoxetine 20 Mg Capsule PO DAILY JESSICA Folic Acid 1 mg 06/25/25 08:00 Folic Acid 1 Mg Tablet PO BREAKFAST JESSICA Glucagon 1 mg 06/25/25 04:30 Glucagon 1 Mg/Ml Syringe IM X1 PRN Hypoglycemia Protocol Guaifenesin 10 ml 06/25/25 04:30 Guaifenesin 10 Ml Udc (200mg/10ml) PO Q4H PRN PRN COUGH Sodium Chloride 1,000 mls @ 100 mls/hr 06/25/25 04:30 06/25/25 05:40 IV 06/25/25 14:29 100 mls/hr .Q10H JESSICA Administration Dextrose 250 mls @ 0 mls/hr 06/25/25 04:30 Dextrose 10%-Water IV .Q0M PRN HYPOGLYCEMIA Protocol As Directed Piperacillin Sod/Tazobactam 50 mls @ 12.5 mls/hr 06/25/25 06:00 06/25/25 05:40 Sod 3.375 gm/ Sodium Chloride IV 12.5 mls/hr Q8 JESSICA Administration Vancomycin IV-PHARMACY TO DOSE 500 mls @ 250 mls/hr 06/25/25 04:30 1 each/ Sodium Chloride IV X1 PRN Rx to Dose Protocol Sodium Chloride 250 mls @ 15 mls/hr 06/25/25 04:36 IV .[id number] PRN Additional IVPB Infusion Sodium Chloride 250 mls @ 15 mls/hr 06/25/25 04:36 IV .[id number] PRN Saline Flush Insulin Human Lispro 0 unit 06/25/25 07:00 Insulin Lispro 100 Unit/Ml Insuln.Pen SC ACHS [facility] Protocol Lorazepam 2 mg 06/25/25 04:30 Lorazepam 2 Mg/Ml Syringe IV UD PRN CIWA score >/=15. Protocol Lorazepam 2 mg 06/25/25 04:30 Lorazepam 2 Mg/Ml Syringe IV Q2H PRN PRN CIWA score > 8 but <15 Protocol Lorazepam 2 mg 06/25/25 04:30 Lorazepam 1 Mg Tablet PO UD PRN CIWA score >/=15. Protocol Lorazepam 2 mg 06/25/25 04:30 Lorazepam 1 Mg Tablet PO Q2H PRN PRN CIWA score > 8 but <15 Protocol Melatonin 3 mg 06/25/25 04:30 Melatonin 3 Mg Tablet PO QHS PRN PRN INSOMNIA Multivitamins/Minerals 1 tablet 06/26/25 08:00 Multivitamins,Ther W-Minerals Tablet PO BREAKFAST [facility] Nicotine 21 mg 06/25/25 10:00 06/25/25 05:46 Nicotine (Pbkc) 21 Mg Patch TD 21 mg DAILY [facility] Administration Ondansetron HCl 4 mg 06/25/25 04:30 Ondansetron 4 Mg/2 Ml Vial IV Q8H PRN PRN NAUSEA/VOMITING Senna/Docusate Sodium 2 tablet 06/25/25 04:30 Senna/Docusate Sodium 1 Tablet PO BID PRN PRN Constipation Sodium Chloride 10 - 40 ml 06/25/25 04:36 06/25/25 05:40 0.9% Saline Lock 10 Ml Syringe IV 10 ml UD PRN Administration SALINE FLUSH Thiamine HCl 100 mg 06/25/25 08:00 Thiamine Hydrochloride 100 Mg Tablet PO BREAKFAST [facility] Lab / Micro Data 06/25/25 04:50 06/25/25 05:44 Labs: Laboratory Results - last 24 hr 06/25/25 00:09: WBC 6.8, RBC 2.84 L, Hgb 9.0 L, Hct 27.7 L, MCV 97.5, MCH 31.7, MCHC 32.5, RDW Std Deviation 73.0 H, RDW Coeff of Micheal 20.4 H, Plt Count 306, MPV 9.2, Immature Gran % (Auto) 0.600, Neut % (Auto) 76.6 H, Lymph % (Auto) 14.2 L, [place] % (Auto) 7.9, Eos % (Auto) 0.3, Baso % (Auto) 0.4, Absolute Neuts (auto) 5.2, Absolute Lymphs (auto) 0.97, Nucleated RBC % 0, Differential Comment SCANNED, Plt Morphology Comment LARGE, RBC Morphology NORM C+C, Polychromasia RARE, Anisocytosis RARE, Sodium 129 L, Potassium 4.0, Chloride 90 L, Carbon Dioxide 24.7, Anion Gap 14, BUN 4, Creatinine 0.48 L, Estim Creat Clear Calc 126.30, Est GFR (MDRD) Non-Af 121, BUN/Creatinine Ratio 8.8 L, Glucose 219 H, L actic Acid 5.8 H*, Calcium 8.6, Phosphorus 1.8 L, Magnesium 2.0, Total Bilirubin 1.86 H, AST 118 H, ALT 25, Alkaline Phosphatase 207 H, Troponin T High Sens < 6, Total Protein 6.0, Albumin 2.6 L, Globulin 3.3, Albumin/Globulin Ratio 0.8 L, Lipase 34, Serum , Qual NEGATIVE 06/25/25 02:15: Troponin T Hi Sens 2 Hr 6, Urine Color Yellow, Urine Clarity Sl. Cloudy, Urine pH 6.5, Ur Specific [place] 1.005, Urine Protein 30 H, Urine Glucose (UA) Normal, Urine Ketones Negative, Urine Occult Blood 25 H, Urine Nitrite Positive H, Urine Bilirubin 1 H, Urine Urobilinogen 8 H, Ur Leukocyte Esterase 100 H, Urine RBC 0 SEEN, Urine WBC 0-5 SEEN, Ur Squamous Epith Cells 5- 10 SEEN, Ur Renal Epithelial Cell 0-5 SEEN, Urine Bacteria 2+, Urine Mucus 0 SEEN 06/25/25 04:19: Lactic Acid 2.6 H* 06/25/25 04:50: WBC 5.7, RBC 2.44 L, Hgb 7.6 L, Hct 23.3 L, MCV 95.5, MCH 31.1, MCHC 32.6, RDW Std Deviation 70.5 H, RDW Coeff of Micheal 20.1 H, Plt Count 275, MPV 9.3, Immature Gran % (Auto) 0.700, Neut % (Auto) 72.7 H, Lymph % (Auto) 19.4, [place] % (Auto) 6.2, Eos % (Auto) 0.5, Baso % (Auto) 0.5, Absolute Neuts (auto) 4.1, Absolute Lymphs (auto) 1.10, Nucleated RBC % 0 Micro: Microbiology 06/25/25 01:12 Mucosa - Nose SARS-CoV-2, Influenza & RSV (PCR) - Final ABG Data ABG results: ABG 06/25/25 01:24 Specimen Type ANGEL Sample Site Not entered VBG pH 7.53 H VBG pO2 41 H VBG HCO3 30 H VBG Total CO2 31 VBG O2 Sat (Calc) 82 H VBG Base Excess 7 H POC Mix VBG pCO2 Pt Tmp 35.6 L O2 Delivery Device Room Air Imaging Radiology Impression Abdomen/Pelvis CT 06/25/25 00:00 IMPRESSION: Fatty hepatomegaly with parenchymatous liver changes. Minimal sized progression of the right adnexal cyst. Diffuse rather uniform rectal mural thickening that could represent proctitis. Stable rest of the study findings. Reading Location: [place] [id number] Assessment and Plan . Assessment and plan: Physical Exam: Gen - NAD, well-developed, fatigued HEENT - MM dry. Sclera anicteric Resp - CTAB. Breathing nonlabored CV - RRR. No m/g/r Abd - Soft, mild epigastric TTP, ND Ext - No c/c/e. Skin - No rashes? Neuro - Grossly nonfocal. Alert and oriented I have reviewed the pertinent vital sign, laboratory, and imaging data. ASSESSMENT: # Sepsis # Hypotension ? marginal BP here, reports SBP runs 90-100 at home usually # UTI # Lactic acidosis # Rectal mural thickening - ?proctitis vs possible malignancy # Weight loss # Transaminitis ? fatty liver/hepatomegaly on CT. Reports only intermittent EtOH use but concern may be drinking more than stated? # Acute on chronic hyponatremia # Acute on chronic anemia # h/o Demi?s thyroiditis # Asthma # Anxiety/depression # Tobacco abuse PLAN: -Monitor BP closely in ICU. May need pressors if worsening -Cont IVF. Give dose of albumin. May need midodrine if persistently low -Empiric vanc/zosyn. f/u Cx. Obtain stool studies if recurrent diarrhea (none thus far) -Follow lactate, downtrending -Check thyroid studies -Monitor LFTs -Needs GI evaluation for rectal mural thickening once stable -CIWA protocol, thiamine -PRN albuterol nebs FEN/GI: PO as tolerated Proph DVT/GI: SQ lovenox Critical Care Time: 60 mins The entirety of this encounter was done via telemedicine using both audio and video. Consent was obtained.
[2025-06-25 06:20] LABS: Anion Gap 10 (5-15); BUN 4 mg/dL (4-19); BUN/Creat Ratio 8.7 RATIO (10-20); Calcium,Total 7.3 mg/dL (7.6-11.0); Carbon Dioxide 25.2 mmol/L (21.0-32.0); Chloride 101 mmol/L (98-108); Estimated Creatinine Clearance 158.11 ml/min (50-250); Glucose 127 mg/dL (70-99); Potassium 2.5 mmol/L (3.3-5.1)
--- NOTE | 2025-06-25 06:31 | PCM.RX.CS ---
Consult Antibiotic Management Pharmacy has been consulted to manage selected antibiotic: Vancomycin Type of Intervention Type of Consult: New start Labs Labs: Sodium 137 mmol/L (133-145) 06/25/25 05:44 Potassium 2.5 mmol/L (3.3-5.1) L* 06/25/25 05:44 Chloride 101 mmol/L (98-108) 06/25/25 05:44 Carbon Dioxide 25.2 mmol/L (21.0-32.0) 06/25/25 05:44 Anion Gap 10 (5-15) 06/25/25 05:44 BUN 4 mg/dL (4-19) 06/25/25 05:44 Creatinine 0.42 mg/dL (0.70-1.20) L 06/25/25 05:44 Est GFR (MDRD) Non-Af 126 (>60) 06/25/25 05:44 BUN/Creatinine Ratio 8.7 RATIO (10-20) L 06/25/25 05:44 Glucose 127 mg/dL (70-99) H 06/25/25 05:44 Microbiology Microbiology: Microbiology 06/25/25 01:12 Mucosa - Nose SARS-CoV-2, Influenza & RSV (PCR) - Final Dosing Weight Weight used for dosin.9 kg Estimated Creatinine Clearance Estimated Creatinine Clearance: 158 Goal Trough Goal Trough: 15-20 mcg/mL Pharmacy Plan for Drug Dosing Pharmacy Plan for Drug Dosing: Pharmacy Service will continue to monitor and adjust dosing as required. ER DOSE 1500MG GIVEN 06/25 @ 0126. START 750MG Q8H AND DRAW TROUGH PRIOR TO 4TH DOSE Follow-Up Labs Follow-Up Labs: Trough: Vancomycin Date/Time Labs Ordered Labs to be done on [date and time ordered]: 06/26 @ 0100
[2025-06-25] MEDS: Albumin Human 25% (100 mL) 25 GM/100 ML BAG IV ×2 (06:44→08:11)
[2025-06-25] MEDS: Potassium Chloride Oral Tablet 20 MEQ 40 MEQ PO (06:54)
[2025-06-25] MEDS: Potassium Chloride 10mEq/100mL 10 MEQ/100 ML IV.SOLN. 100 MEQ IV BOLUS ×4 (06:54→09:51)
[2025-06-25] MEDS: Thiamine Hydrochloride 100 MG Tablet PO (08:28)
[2025-06-25] MEDS: Vancomycin HCl 750 MG in 0.9% Normal Saline (250mL Bag) 250 ML 250 MG IV ×2 (09:50→17:30)
[2025-06-25] MEDS: Potassium Phosphate 21 MM in 0.9% Normal Saline (250mL Bag) 250 ML 84 MM IV (11:20)
[2025-06-25 12:49] LABS: Hematocrit 22.6 % (37-47); Hemoglobin 7.2 g/dL (12.0-15.0)
[2025-06-25 13:33] LABS: Ferritin 219 ng/mL (22-378); Iron 36 ug/dL (50-170); Iron Binding Capacity,Unsat 83 ug/dL (228-428); Vitamin B12 710 pg/mL (180-914)
[2025-06-25 13:58] LABS: Iron Binding Capacity,Total 119 ug/dL (250-450)
--- NOTE | 2025-06-25 14:21 | CASEMGMT ---
FAUZIA RAMESH Assessment Face to Face with patient for initial transition planning/care coordination assessment. FAUZIA RAMESH introduced self and role at [facility], pt voices understanding. Pt is A&Ox4 and is resting comfortably in bed and is calm. Care providers, pharmacy, and demographics verified. Admitting dx: SIRS, UTI LACE Strata: 1 PCP: Karen Collado Specialists: Denies Preferred Pharmacy: [facility] Insurance: [facility]/[employer] Prescription Benefit: Yes LNOK: Rachel (Mom), Arash (Friend) Living Arrangements: Pt lives alone in a 2 story home with 2 steps to enter. Pt states that her friend will be staying with her after DC ADLs/IADLs: Pt states that she is indep at baseline but has been feeling weak lately. Pt states that she has been to for OP Tx before and that she would like to do this again. Green sheet placed on the chart for MD signing. Pt states that she prefers to call to make her own appt. Pt is aware to bring the Rx to [facility] after making an appt. Transportation: Friend. Denies concerns DME: Cane. Denies further needs HHC/SNF: Denies hx or needs Pt?s goal: Home with OP Tx Plan: Home with OP Tx with the support of pt's friend, Arash. Pt states that she feels safe with this plan and denies any further questions, concerns, or needs. Kavin Song RN, CM
[2025-06-25] MEDS: Norepinephrine 8 MG in 0.9% Normal Saline (250mL Bag) 242 ML 9.4 MG CONT INF (15:16)
[2025-06-25 16:02] LABS: Potassium 3.7 mmol/L (3.3-5.1)
--- NOTE | 2025-06-25 18:51 | PCM.PN.BLA ---
Progress Note Hemoccult was positive will place on PPI and recheck hemoglobin tonight at 10 PM, will hold Lovenox and place her on SCDs.
[2025-06-25] MEDS: Pantoprazole Sodium 40 MG in 0.9% Normal Saline (100mL MB+) 100 ML 300 MG IV (22:09)
[2025-06-25 22:46] LABS: Hematocrit 24.7 % (37-47); Hemoglobin 7.9 g/dL (12.0-15.0)
[2025-06-26] VITALS (39 sets, daily range): BP systolic 88–117; BP diastolic 46–79; PULSE 84–122; RESP 15–29; TEMP 36.6–37.1; O2SAT 93–100; BMI 25.4
[2025-06-26 02:03] LABS: Vancomycin, Trough Level 11.0 ug/mL (5.0-15.0)
--- NOTE | 2025-06-26 02:27 | PCM.RX.CS ---
Consult Antibiotic Management Pharmacy has been consulted to manage selected antibiotic: Vancomycin Type of Intervention Type of Consult: Follow-up Labs Labs: Sodium 137 mmol/L (133-145) 06/25/25 05:44 Potassium 3.7 mmol/L (3.3-5.1) 06/25/25 15:09 Chloride 101 mmol/L (98-108) 06/25/25 05:44 Carbon Dioxide 25.2 mmol/L (21.0-32.0) 06/25/25 05:44 Anion Gap 10 (5-15) 06/25/25 05:44 BUN 4 mg/dL (4-19) 06/25/25 05:44 Creatinine 0.42 mg/dL (0.70-1.20) L 06/25/25 05:44 Est GFR (MDRD) Non-Af 126 (>60) 06/25/25 05:44 BUN/Creatinine Ratio 8.7 RATIO (10-20) L 06/25/25 05:44 Glucose 127 mg/dL (70-99) H 06/25/25 05:44 Vancomycin Trough 11.0 ug/mL (5.0-15.0) 06/26/25 01:20 Microbiology Microbiology: Microbiology 06/25/25 09:40 Stool Stool Lactoferrin - Final 06/25/25 09:40 Stool Enteric Bacteriology - Final 06/25/25 09:40 Stool Stool Occult Blood ([facility]) - Final Occult Blood Positive 06/25/25 04:50 Nasal Secretion MRSA (PCR) - Final Meth. resistant Staph. aureus 06/25/25 01:12 Mucosa - Nose SARS-CoV-2, Influenza & RSV (PCR) - Final Goal Trough Goal Trough: 15-20 mcg/mL Pharmacy Plan for Drug Dosing Pharmacy Plan for Drug Dosing: Pharmacy Service will continue to monitor and adjust dosing as required. TROUGH 11 @ 8 HOURS. INCREASE TO 1GM Q8H AND DRAW TROUGH PRIOR TO 4TH DOSE Follow-Up Labs Follow-Up Labs: Trough: Vancomycin Date/Time Labs Ordered Labs to be done on [date and time ordered]: 06/27 @ 1579
[2025-06-26] MEDS: Vancomycin HCl 1,000 MG in 0.9% Normal Saline (250mL Bag) 250 ML 250 MG IV ×3 (02:32→17:54)
[2025-06-26 04:59] LABS: Hematocrit 24.0 % (37-47); Hemoglobin 7.6 g/dL (12.0-15.0); Immature Granulocytes Count 0.060 X10^3/uL (0.0-0.0); Mean Corp Hgb Conc 31.7 g/dL (32-36); Mean Corpuscular Volume 97.6 fL (81-99); Mean Platelet Vol. 9.1 fl (6.2-12.0); NRBC Flagged by Analyzer 0 % (0-5); POSITIVE MORPHOLOGY YES; Platelet Count 263 K/mm3 (150-450); RBC Distribution Width CV 20.7 % (11.6-14.6); RBC Distribution Width SD 73.3 fl (35.1-43.9); Red Blood Count 2.46 M/mm3 (4.2-5.4); White Blood Count 6.6 K/mm3 (4.4-11.0)
[2025-06-26 05:07] LABS: Differential Indicated SCAN CRITERIA MET
[2025-06-26 05:40] LABS: Anisocytosis 2+; Differential Comment SCANNED; Polychromasia 1+; Target Cells RARE
[2025-06-26 05:49] LABS: Anion Gap 11 (5-15); BUN 4 mg/dL (4-19); BUN/Creat Ratio 9.2 RATIO (10-20); Calcium,Total 7.3 mg/dL (7.6-11.0); Carbon Dioxide 20.1 mmol/L (21.0-32.0); Chloride 107 mmol/L (98-108); Estimated Creatinine Clearance 154.76 ml/min (50-250); Glucose 138 mg/dL (70-99); Potassium 3.3 mmol/L (3.3-5.1)
[2025-06-26] MEDS: Piperacil/Tazobactam 3.375 GM in 0.9% Normal Saline (50mL MB+) 50 ML IV ×3 (06:17→21:49)
[2025-06-26 06:22] LABS: Albumin, Serum 2.8 g/dL (3.5-5.0)
--- NOTE | 2025-06-26 07:44 | PN.HOSP_ITS ---
Subjective Subjective Resting comfortably, no issues overnight. Levophed was discontinued 2 hours ago Objective Data Objective Data Vital Signs: Vital Signs Temp Pulse Resp BP Pulse Ox O2 Del Method 98.7 F 99 27 H 110/69 94 Room Air 06/26/25 05:57 06/26/25 07:00 06/26/25 07:00 06/26/25 07:00 06/26/25 07:00 06/26/25 07:00 Oxygen Delivery Method Room Air Weight: 143 lb 11.862 oz Body Mass Index (BMI) 25.4 Intake & Output: Intake and Output for Last 24 Hours 06/25/25 06/26/25 06/27/25 03:59 03:59 03:59 Intake Total 210. / 2103. 5966.02 / 5967.42 4.73 / 4.73 Output Total 300 / 550 250 / 250 Balance 2103. / 2103. 5666.02 / 5417.42 -245.27 / -245.27 Lab / Micro Data 06/26/25 04:52 06/26/25 04:52 Labs: Laboratory Results - last 24 hr 06/25/25 08:06: POC Glucose 132 H 06/25/25 11:14: POC Glucose 132 H 06/25/25 12:34: Hgb 7.2 L, Hct 22.6 L, Iron 36 L, TIBC 119 L, Iron Saturation 30.3, Unsaturated IBC 83 L, Ferritin 219, Vitamin B12 710 06/25/25 15:09: Potassium 3.7 06/25/25 16:21: POC Glucose 121 H 06/25/25 22:05: POC Glucose 135 H 06/25/25 22:19: Hgb 7.9 L, Hct 24.7 L 06/26/25 01:20: Vancomycin Trough 11.0 06/26/25 04:52: WBC 6.6, RBC 2.46 L, Hgb 7.6 L, Hct 24.0 L, MCV 97.6, MCH 30.9, MCHC 31.7 L, RDW Std Deviation 73.3 H, RDW Coeff of Micheal 20.7 H, Plt Count 263, MPV 9.1, Immature Gran % (Auto) 0.900, Neut % (Auto) 72.7 H, Lymph % (Auto) 17.0 L, [place] % (Auto) 7.7, Eos % (Auto) 0.9, Baso % (Auto) 0.8, Absolute Neuts (auto) 4.8, Absolute Lymphs (auto) 1.13, Nucleated RBC % 0, Differential Comment SCANNED, Platelet Estimate ADEQUATE, Plt Morphology Comment LARGE, Polychromasia 1+, Anisocytosis 2+, Target Cells RARE, Sodium 137, Potassium 3.3, Chloride 107, Carbon Dioxide 20.1 L, Anion Gap 11, BUN 4, Creatinine 0.43 L, Estim Creat Clear Calc 154.76, Est GFR (MDRD) Non-Af 125, BUN/Creatinine Ratio 9.2 L, Glucose 138 H, Calcium 7.3 L, Phosphorus 3.0, Albumin 2.8 L 06/26/25 06:34: POC Glucose 126 H Micro: Microbiology 06/25/25 09:40 Stool Stool Lactoferrin - Final 06/25/25 09:40 Stool Enteric Bacteriology - Final 06/25/25 09:40 Stool Stool Occult Blood ([facility]) - Final Occult Blood Positive 06/25/25 04:50 Nasal Secretion MRSA (PCR) - Final Meth. resistant Staph. aureus 06/25/25 01:12 Mucosa - Nose SARS-CoV-2, Influenza & RSV (PCR) - Final Physical Exam Narrative General: Resting comfortably, Cooperative, No apparent distress HEENT: Atraumatic, PERRLA, EOMI, Normocephalic Oral: Moist Mucosa Neck: Supple, No JVD Lungs: Diminished, Normal air movement, No rhonchi, No wheeze, No rales Cardiovascular: Tachycardic, Regular Rhythm, Normal S1, Normal S2, No murmurs Abdomen: Soft, Non Tender, Non-Distended, No Hepato-splenomegaly Extremities: No edema, Capillary Refill Less than 3 Seconds Skin: No rashes, No breakdown Neurological: No focal neurological deficits, moves all extremities Psych/Mental Status: Normal Affect, Appropriate Assessment & Plan Assessment/Plan (1) Acute UTI: PLAN: Plan 1. Septic shock secondary to UTI ? Based on her hypotension and her lactic acidosis consistent with sepsis ? She was on Levophed which was discontinued this morning at around 5 AM ? Continue with aggressive IV fluids as well as antibiotics ? Concern that alcohol use is also complicating her clinical picture 2. Acute blood loss anemia with a diffuse uniform rectal mural thickening ? Hemoglobin dropped into the sevens ? Continue with PPI ? Stool occult was positive ? Will await for her to be more stable prior to considering colonoscopy or an EGD 3. Alcohol abuse with elevated LFTs ? She did have some hyperbilirubinemia and transaminitis on admission with routine consumption of vodka ? Continue with CIWA protocol as well as thiamine and folic acid 4. Hypothyroidism ? Stable ? Continue with Synthroid 5. Anxiety/depression ? Stable ? Continue with her home medications DVT: SCDs Charges/Coding Visit Charges Inpatient E&M: 84312 Subs Hosp L2
[2025-06-26] MEDS: Thiamine Hydrochloride 100 MG Tablet PO (08:20)
[2025-06-26] MEDS: Nicotine (PBKC) 21 MG Patch TD (08:21)
--- NOTE | 2025-06-26 08:50 | PN.CC_ITS ---
Objective Data Objective Data Vital Signs: Vital Signs Last response 3 Temperature 37.1 C 06/26/25 05:57 Temperature Source Temporal 06/26/25 05:57 Pulse Rate 99 06/26/25 07:00 Respiratory Rate 27 H 06/26/25 07:00 Respiratory Effort Normal, Non-Labored 06/26/25 04:00 Respiratory Depth Normal 06/26/25 04:00 Respiratory Pattern Normal 06/26/25 04:00 Blood Pressure 110/69 06/26/25 07:00 Blood Pressure Mean 82 06/26/25 07:00 Blood Pressure Source Monitor 06/26/25 07:00 Blood Pressure Position Semi-Fowlers 06/26/25 05:57 Blood Pressure Location Left Arm 06/26/25 05:57 Pulse Ox 94 06/26/25 07:00 Oxygen Delivery Method Room Air 06/26/25 07:00 I&O: I&O Last 24 Hours 3 06/25/25 06/25/25 06/26/25 11:59 23:59 11:59 Intake Total 4920.33 / 7723.48 2651.27 / 7723.48 503.32 / 503.32 Output Total 300 / 300 250 / 250 Balance 4920.33 / 7423.48 2351.27 / 7423.48 253.32 / 253.32 I&O: Total Stay 3 06/24/25 23:30 thru 06/26/25 07:00 Intake Total 8074.92 Output Total 550 Balance 7524.92 Current Meds Ordered / Administered: Current meds ordered / Administered 3 Generic Name Dose Route Start Last Admin Trade Name Freq PRN Reason Stop Dose Admin Acetaminophen 650 mg 06/25/25 04:30 Acetaminophen 325 Mg Tablet PO Q4H PRN PRN Fever, pain 1-05/20 Al Hydroxide/Mg Hydroxide 30 ml 06/25/25 04:30 Mag Hydrox/Al Hydrox/Simeth 30 Ml Udc PO Q6H PRN PRN Gastric Burning Albuterol Sulfate 2.5 mg 06/25/25 04:30 Albuterol 2.5 Mg/3 Ml Vial.Neb. INHALATION Q2H PRN PRN Dyspnea, wheezing Alprazolam 1 mg 06/25/25 04:30 06/26/25 08:26 Alprazolam 0.5 Mg Tablet PO 1 mg DAILY PRN PRN Administration ANXIETY Folic Acid 1 mg 06/25/25 08:00 06/26/25 08:19 Folic Acid 1 Mg Tablet PO 1 mg BREAKFAST JESSICA Administration Guaifenesin 10 ml 06/25/25 04:30 Guaifenesin 10 Ml Udc (200mg/10ml) PO Q4H PRN PRN COUGH Piperacillin Sod/Tazobactam 50 mls @ 12.5 mls/hr 06/25/25 06:00 06/26/25 06:17 Sod 3.375 gm/ Sodium Chloride IV 12.5 mls/hr Q8 JESSICA Administration Vancomycin IV-PHARMACY TO DOSE 500 mls @ 250 mls/hr 06/25/25 04:30 1 each/ Sodium Chloride IV X1 PRN Rx to Dose Protocol Sodium Chloride 250 mls @ 15 mls/hr 06/25/25 04:36 IV .[id number] PRN Additional IVPB Infusion Sodium Chloride 250 mls @ 15 mls/hr 06/25/25 04:36 IV .[id number] PRN Saline Flush Norepinephrine Bitartrate 8 mg 250 mls @ 9.375 mls/hr 06/25/25 12:00 06/26/25 07:00 / Sodium Chloride CONT INF 0 mcg/min .[id number] JESSICA 0 mls/hr Protocol Titration 5 MCG/MIN Pantoprazole Sodium 40 mg/ 100 mls @ 300 mls/hr 06/25/25 22:00 06/25/25 22:29 Sodium Chloride IV Infused Q12 JESSICA Infusion Vancomycin HCl 1,000 mg/ 270 mls @ 250 mls/hr 06/26/25 02:00 06/26/25 03:37 Sodium Chloride IV Infused Q8H JESSICA Infusion Lorazepam 2 mg 06/25/25 04:30 Lorazepam 2 Mg/Ml Syringe IV UD PRN CIWA score >/=15. Protocol Lorazepam 2 mg 06/25/25 04:30 Lorazepam 2 Mg/Ml Syringe IV Q2H PRN PRN CIWA score > 8 but <15 Protocol Lorazepam 2 mg 06/25/25 04:30 Lorazepam 1 Mg Tablet PO UD PRN CIWA score >/=15. Protocol Lorazepam 2 mg 06/25/25 04:30 Lorazepam 1 Mg Tablet PO Q2H PRN PRN CIWA score > 8 but <15 Protocol Melatonin 3 mg 06/25/25 04:30 Melatonin 3 Mg Tablet PO QHS PRN PRN INSOMNIA Midodrine 15 mg 06/25/25 12:00 06/26/25 08:19 Midodrine Hcl 5 Mg Tablet PO 15 mg TIDCM JESSICA Administration Multivitamins/Minerals 1 tablet 06/26/25 08:00 06/26/25 08:20 Multivitamins,Ther W-Minerals Tablet PO 1 tablet BREAKFAST JESSICA Administration Nicotine 21 mg 06/25/25 10:00 06/26/25 08:21 Nicotine (Pbkc) 21 Mg Patch TD 21 mg DAILY JESSICA Administration Ondansetron HCl 4 mg 06/25/25 04:30 Ondansetron 4 Mg/2 Ml Vial IV Q8H PRN PRN NAUSEA/VOMITING Senna/Docusate Sodium 2 tablet 06/25/25 04:30 Senna/Docusate Sodium 1 Tablet PO BID PRN PRN Constipation Sodium Chloride 10 - 40 ml 06/25/25 04:36 06/25/25 05:40 0.9% Saline Lock 10 Ml Syringe IV 10 ml UD PRN Administration SALINE FLUSH Sodium Chloride 10 - 40 ml 06/26/25 04:40 0.9% Saline Lock 10 Ml Syringe IV UD PRN SALINE FLUSH Thiamine HCl 100 mg 06/25/25 08:00 06/26/25 08:20 Thiamine Hydrochloride 100 Mg Tablet PO 100 mg BREAKFAST JESSICA Administration Vancomycin Protocol 1 lab 06/27/25 00:30 Vancomycin Trough/Random Due [facility] 06/27/25 02:30 DAILY [facility] Lab / Micro Data 06/26/25 04:52 06/26/25 04:52 Labs: Laboratory Results - last 24 hr 06/25/25 11:14: POC Glucose 132 H 06/25/25 12:34: Hgb 7.2 L, Hct 22.6 L, Iron 36 L, TIBC 119 L, Iron Saturation 30.3, Unsaturated IBC 83 L, Ferritin 219, Vitamin B12 710 06/25/25 15:09: Potassium 3.7 06/25/25 16:21: POC Glucose 121 H 06/25/25 22:05: POC Glucose 135 H 06/25/25 22:19: Hgb 7.9 L, Hct 24.7 L 06/26/25 01:20: Vancomycin Trough 11.0 06/26/25 04:52: WBC 6.6, RBC 2.46 L, Hgb 7.6 L, Hct 24.0 L, MCV 97.6, MCH 30.9, MCHC 31.7 L, RDW Std Deviation 73.3 H, RDW Coeff of Micheal 20.7 H, Plt Count 263, MPV 9.1, Immature Gran % (Auto) 0.900, Neut % (Auto) 72.7 H, Lymph % (Auto) 17.0 L, [place] % (Auto) 7.7, Eos % (Auto) 0.9, Baso % (Auto) 0.8, Absolute Neuts (auto) 4.8, Absolute Lymphs (auto) 1.13, Nucleated RBC % 0, Differential Comment SCANNED, Platelet Estimate ADEQUATE, Plt Morphology Comment LARGE, Polychromasia 1+, Anisocytosis 2+, Target Cells RARE, Sodium 137, Potassium 3.3, Chloride 107, Carbon Dioxide 20.1 L, Anion Gap 11, BUN 4, Creatinine 0.43 L, Estim Creat Clear Calc 154.76, Est GFR (MDRD) Non-Af 125, BUN/Creatinine Ratio 9.2 L, Glucose 138 H, Calcium 7.3 L, Phosphorus 3.0, Albumin 2.8 L 06/26/25 06:34: POC Glucose 126 H Micro: Microbiology 06/25/25 09:40 Stool Stool Lactoferrin - Final 06/25/25 09:40 Stool Enteric Bacteriology - Final 06/25/25 09:40 Stool Stool Occult Blood (CHINO) - Final Occult Blood Positive 06/25/25 04:50 Nasal Secretion MRSA (PCR) - Final Meth. resistant Staph. aureus Assessment and Plan . Assessment and plan: Critical Care Time: The entirety of this encounter was done via Telemedicine Subjective Subjective Pt seen and examined. Feels better today. Tolerating diet. Mobilizing. NEpi turned off earlier this AM. Pt without specific complaints. Is not altered/agitated & has not required BZDs per CIWA but is mildy tachycardic with HR low 100s. PE: Gen - NAD, well-developed, fatigued HEENT - MM dry. Sclera anicteric Resp - CTAB. Breathing nonlabored CV - Tachy. No m/g/r Abd - Soft, mild epigastric TTP, ND Ext - No c/c/e. Skin - No rashes? Neuro - Grossly nonfocal. Alert and oriented I have reviewed the pertinent vital sign, laboratory, and imaging data. ASSESSMENT/PLAN: #Sepsis #Hypotension ? marginal BP here, reports SBP runs 90-100 at home usually #UTI #Lactic acidosis #Rectal mural thickening - ?proctitis vs possible malignancy #Weight loss #Transaminitis ? fatty liver/hepatomegaly on CT. Reports only intermittent EtOH use but concern may be drinking more than stated? 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 f/u Cx -Needs GI evaluation for rectal mural thickening once stable, also with anemia with possive stool occult blood; cont PPI IV BID -Monitor blood counts; transfuse to keep Hgb > 7 -CIWA protocol, thiamine -PRN albuterol nebs PO diet SCDs, PPI Guarded prognosis Critical Care Time: 50 min The entirety of this encounter was done via telemedicine using both audio and video. Consent was obtained.
[2025-06-26] MEDS: Pantoprazole Sodium 40 MG in 0.9% Normal Saline (100mL MB+) 100 ML 300 MG IV ×2 (10:06→21:49)
[2025-06-26] MEDS: 0.9% Saline Lock 10 ML Syringe IV (17:54)
[2025-06-26] MEDS: 0.9% Normal Saline (250mL Bag) 250 ML 15 ML IV (21:50)
[2025-06-27] VITALS (27 sets, daily range): BP systolic 85–110; BP diastolic 50–76; PULSE 85–102; RESP 18–28; TEMP 36.7–36.8; O2SAT 91–100; BMI 29.4
[2025-06-27 01:44] LABS: Vancomycin, Trough Level 26.0 ug/mL (5.0-15.0)
--- NOTE | 2025-06-27 01:50 | PCM.RX.CS ---
Consult Antibiotic Management Pharmacy has been consulted to manage selected antibiotic: Vancomycin Type of Intervention Type of Consult: Follow-up Labs Labs: Sodium 137 mmol/L (133-145) 06/26/25 04:52 Potassium 3.3 mmol/L (3.3-5.1) 06/26/25 04:52 Chloride 107 mmol/L (98-108) 06/26/25 04:52 Carbon Dioxide 20.1 mmol/L (21.0-32.0) L 06/26/25 04:52 Anion Gap 11 (5-15) 06/26/25 04:52 BUN 4 mg/dL (4-19) 06/26/25 04:52 Creatinine 0.43 mg/dL (0.70-1.20) L 06/26/25 04:52 Est GFR (MDRD) Non-Af 125 (>60) 06/26/25 04:52 BUN/Creatinine Ratio 9.2 RATIO (10-20) L 06/26/25 04:52 Glucose 138 mg/dL (70-99) H 06/26/25 04:52 Vancomycin Trough 26.0 ug/mL (5.0-15.0) H 06/27/25 01:15 Microbiology Microbiology: Microbiology 06/25/25 09:40 Stool Stool Lactoferrin - Final 06/25/25 09:40 Stool Enteric Bacteriology - Final 06/25/25 09:40 Stool Stool Occult Blood (CHINO) - Final Occult Blood Positive 06/25/25 04:50 Nasal Secretion MRSA (PCR) - Final Meth. resistant Staph. aureus 06/25/25 01:12 Mucosa - Nose SARS-CoV-2, Influenza & RSV (PCR) - Final Goal Trough Goal Trough: 15-20 mcg/mL Pharmacy Plan for Drug Dosing Pharmacy Plan for Drug Dosing: Pharmacy Service will continue to monitor and adjust dosing as required. TROUGH 26.0 @ 7.25 HOURS. HOLD DOSE AND DRAW RANDOM LEVEL IN 12 HOURS Follow-Up Labs Follow-Up Labs: Trough: Vancomycin Date/Time Labs Ordered Labs to be done on [date and time ordered]: 06/27 @ 1330
[2025-06-27 03:46] LABS: Hematocrit 24.6 % (37-47); Hemoglobin 7.8 g/dL (12.0-15.0); Immature Granulocytes Count 0.040 X10^3/uL (0.0-0.0); Mean Corp Hgb Conc 31.7 g/dL (32-36); Mean Corpuscular Volume 98.8 fL (81-99); Mean Platelet Vol. 9.2 fl (6.2-12.0); NRBC Flagged by Analyzer 0 % (0-5); POSITIVE MORPHOLOGY YES; Platelet Count 235 K/mm3 (150-450); RBC Distribution Width CV 20.7 % (11.6-14.6); RBC Distribution Width SD 73.7 fl (35.1-43.9); Red Blood Count 2.49 M/mm3 (4.2-5.4); White Blood Count 6.8 K/mm3 (4.4-11.0)
[2025-06-27 03:48] LABS: Differential Indicated SCAN CRITERIA MET
[2025-06-27 04:17] LABS: Anion Gap 10 (5-15); BUN 9 mg/dL (4-19); BUN/Creat Ratio 9.7 RATIO (10-20); Calcium,Total 8.0 mg/dL (7.6-11.0); Carbon Dioxide 20.6 mmol/L (21.0-32.0); Chloride 106 mmol/L (98-108); Estimated Creatinine Clearance 74.77 ml/min (50-250); Glucose 114 mg/dL (70-99); Potassium 3.3 mmol/L (3.3-5.1)
[2025-06-27 04:25] LABS: Anisocytosis 2+; Differential Comment SCANNED; Polychromasia 1+; Target Cells RARE
[2025-06-27] MEDS: Piperacil/Tazobactam 3.375 GM in 0.9% Normal Saline (50mL MB+) 50 ML IV ×3 (05:08→20:31)
--- NOTE | 2025-06-27 07:24 | PCM.PN.INT ---
Assessment & Plan Assessment/Plan (1) Sepsis: PLAN: Plan RECOMMENDATIONS: 1. Continue antimicrobials, pending culture results. 2. Continue scheduled midodrine. 3. Continue to monitor blood counts. Transfuse if hemoglobin drops below 7 g/dL. 4. Continue PPI therapy. 5. Gastroenterology consultation pending. 6. Encourage incentive spirometer use and mobilize patient as tolerated. IMPRESSIONS: 1. Septic shock Presumed secondary to urinary tract source of infection. The patient was able to be weaned successfully off of vasopressor support and remains on antimicrobials, pending culture results. Continue scheduled midodrine for now. If the patient remains hemodynamically stable tomorrow, she can be transferred out of the medical intensive care unit. 2. Anemia with rectal mural thickening noted on imaging Gastroenterology consultation is pending. Continue to monitor blood counts and transfuse if hemoglobin drops below 7 g/dL. Continue PPI therapy. 3. History of alcohol and tobacco dependency Continue CIWA protocol along with thiamine and folic acid. Continue nicotine replacement therapy. 4. History of hypothyroidism/anxiety/depression Complicates care, management, recovery and prognosis. Continue home medications as indicated. This note was generated with [employer] dictation software. It may contain incorrect words, spelling, and punctuation that were not noted in checking the note before signing. Subjective Subjective The patient was seen and examined at the bedside this morning. Events from the last 24 hours have been reviewed. The patient is currently afebrile, hemodynamically stable and maintaining appropriate oxygen saturations on room air. The patient was able to be successfully weaned off of Levophed yesterday morning. White blood cell count is normal. Hemoglobin is stable at 7.8 g/dL. Platelet count is within normal limits. Creatinine is within normal limits. Objective Data Objective Data The patient's most recent lab work, culture data and imaging studies have all been personally reviewed. Stool for occult blood was positive. Blood and urine cultures are pending. Vital Signs: Vital Signs Temp Pulse Resp BP Pulse Ox O2 Del Method 98.1 F 100 20 H 92/60 100 Room Air 06/27/25 00:00 06/27/25 07:00 06/27/25 07:00 06/27/25 07:00 06/27/25 07:00 06/27/25 07:00 Oxygen Delivery Method Room Air Weight: 166 lb Body Mass Index (BMI) 29.4 Intake & Output: Intake and Output for Last 24 Hours 06/25/25 06/26/25 06/27/25 23:59 23:59 23:59 Intake Total 7571.60 / 7723.48 3523.32 / 3523.32 300 / 300 Output Total 300 / 300 650 / 650 150 / 150 Balance 7271.60 / 7423.48 2873.32 / 2873.32 150 / 150 Lab / Micro Data Attestation: I reviewed the patient's lab results. 06/27/25 03:35 06/27/25 03:35 Labs: Laboratory Results - last 24 hr 06/27/25 01:15: Vancomycin Trough 26.0 H 06/27/25 03:35: WBC 6.8, RBC 2.49 L, Hgb 7.8 L, Hct 24.6 L, MCV 98.8, MCH 31.3, MCHC 31.7 L, RDW Std Deviation 73.7 H, RDW Coeff of Micheal 20.7 H, Plt Count 235, MPV 9.2, Immature Gran % (Auto) 0.600, Neut % (Auto) 74.3 H, Lymph % (Auto) 17.4 L, [place] % (Auto) 6.4, Eos % (Auto) 0.6, Baso % (Auto) 0.7, Absolute Neuts (auto) 5.1, Absolute Lymphs (auto) 1.19, Nucleated RBC % 0, Differential Comment SCANNED, Platelet Estimate ADEQUATE, Polychromasia 1+, Anisocytosis 2+, Target Cells RARE, Ovalocytes 1+, Sodium 137, Potassium 3.3, Chloride 106, Carbon Dioxide 20.6 L, Anion Gap 10, BUN 9, Creatinine 0.89, Estim Creat Clear Calc 74.77, Est GFR (MDRD) Non-Af 83, BUN/Creatinine Ratio 9.7 L, Glucose 114 H, Calcium 8.0 Micro: Microbiology 06/25/25 09:40 Stool Stool Lactoferrin - Final 06/25/25 09:40 Stool Enteric Bacteriology - Final 06/25/25 09:40 Stool Stool Occult Blood (CHINO) - Final Occult Blood Positive 06/25/25 04:50 Nasal Secretion MRSA (PCR) - Final Meth. resistant Staph. aureus 06/25/25 01:12 Mucosa - Nose SARS-CoV-2, Influenza & RSV (PCR) - Final Physical Exam Const alert and no apparent distress General Appearance: cooperative HEENT normocephalic, head/scalp atraumatic and moist oral mucous membranes Eyes PERRL, EOMs intact bilaterally and conjunctivae normal Neck supple General: trachea midline Chest inspection of chest normal Resp normal respiratory effort Auscultation: Negative for rales, rhonchi or wheezes Cardio regular rate and regular rhythm GI normal to inspection, nondistended, normoactive bowel sounds Extremity no clubbing, cyanosis or edema Skin no rashes or lesions noted Neuro CN's II-XII intact bilaterally, moves all extremities and no focal motor deficits Psych Mood & Affect: flat affect Charges/Coding Visit Charges Inpatient E&M: 86765 Subs Hosp L2
[2025-06-27] MEDS: Thiamine Hydrochloride 100 MG Tablet PO (07:31)
[2025-06-27] MEDS: Nicotine (PBKC) 21 MG Patch TD (07:32)
--- NOTE | 2025-06-27 09:04 | PN.HOSP_ITS ---
Subjective Subjective A little bit hypotensive overnight but did not need to restart pressors Objective Data Objective Data Vital Signs: Vital Signs Temp Pulse Resp BP Pulse Ox O2 Del Method 98.1 F 100 20 H 92/60 100 Room Air 06/27/25 00:00 06/27/25 07:00 06/27/25 07:00 06/27/25 07:00 06/27/25 08:47 06/27/25 08:47 Oxygen Delivery Method Room Air Weight: 166 lb Body Mass Index (BMI) 29.4 Intake & Output: Intake and Output for Last 24 Hours 06/26/25 06/27/25 06/28/25 03:59 03:59 03:59 Intake Total 5966.02 / 5967.42 3324.73 / 3324.73 Output Total 300 / 550 650 / 800 150 / 150 Balance 5666.02 / 5417.42 2674.73 / 2524.73 -150 / -150 Lab / Micro Data 06/27/25 03:35 06/27/25 03:35 Labs: Laboratory Results - last 24 hr 06/27/25 01:15: Vancomycin Trough 26.0 H 06/27/25 03:35: WBC 6.8, RBC 2.49 L, Hgb 7.8 L, Hct 24.6 L, MCV 98.8, MCH 31.3, MCHC 31.7 L, RDW Std Deviation 73.7 H, RDW Coeff of Micheal 20.7 H, Plt Count 235, MPV 9.2, Immature Gran % (Auto) 0.600, Neut % (Auto) 74.3 H, Lymph % (Auto) 17.4 L, [place] % (Auto) 6.4, Eos % (Auto) 0.6, Baso % (Auto) 0.7, Absolute Neuts (auto) 5.1, Absolute Lymphs (auto) 1.19, Nucleated RBC % 0, Differential Comment SCANNED, Platelet Estimate ADEQUATE, Polychromasia 1+, Anisocytosis 2+, Target Cells RARE, Ovalocytes 1+, Sodium 137, Potassium 3.3, Chloride 106, Carbon Dioxide 20.6 L, Anion Gap 10, BUN 9, Creatinine 0.89, Estim Creat Clear Calc 74.77, Est GFR (MDRD) Non-Af 83, BUN/Creatinine Ratio 9.7 L, Glucose 114 H, Calcium 8.0 Micro: Microbiology 11/15/25 01:06 Blood Culture (Wb) - Anticubital Right Blood Culture - Preliminary No growth in 48 hours. 06/25/25 01:10 Blood Culture (Wb) - Anticubital Left Blood Culture - Preliminary No growth in 48 hours. 06/25/25 09:40 Stool Stool Lactoferrin - Final 06/25/25 09:40 Stool Enteric Bacteriology - Final 06/25/25 09:40 Stool Stool Occult Blood (CHINO) - Final Occult Blood Positive 06/25/25 04:50 Nasal Secretion MRSA (PCR) - Final Meth. resistant Staph. aureus 06/25/25 01:12 Mucosa - Nose SARS-CoV-2, Influenza & RSV (PCR) - Final Physical Exam Narrative General: Alert, oriented x 3, Cooperative, No apparent distress HEENT: Atraumatic, PERRLA, EOMI, Normocephalic Oral: Moist Mucosa Neck: Supple, No JVD Lungs: Diminished, Normal air movement, No rhonchi, No wheeze, No rales Cardiovascular: Tachycardic, Regular Rhythm, Normal S1, Normal S2, No murmurs Abdomen: Soft, Non Tender, Non-Distended, No Hepato-splenomegaly Extremities: No edema, Capillary Refill Less than 3 Seconds Skin: No rashes, No breakdown Neurological: No focal neurological deficits, moves all extremities Psych/Mental Status: Flat Assessment & Plan Assessment/Plan (1) Acute UTI: PLAN: Plan 1. Septic shock secondary to UTI ? Based on her hypotension and her lactic acidosis consistent with sepsis ? She was on Levophed which was discontinued for the last 24 hours, was transition to oral midodrine ? Continue with antibiotics, nasal swab was positive for MRSA, blood cultures were negative ? Concern that alcohol use is also complicating her clinical picture 2. Acute blood loss anemia with a diffuse uniform rectal mural thickening ? Hemoglobin dropped into the sevens ? Continue with PPI ? Stool occult was positive ?Will consult gastroenterology today 3. Alcohol abuse with elevated LFTs ? She did have some hyperbilirubinemia and transaminitis on admission with routine consumption of vodka ? Continue with CIWA protocol as well as thiamine and folic acid 4. Hypothyroidism ? Stable ? Continue with Synthroid 5. Anxiety/depression ? Stable ? Continue with her home medications DVT: SCDs Charges/Coding Visit Charges Inpatient E&M: 08625 Subs Hosp L2
--- NOTE | 2025-06-27 14:04 | EX.PCM.CON.G ---
HPI Consult Data Date of Consult: 06/27/25 HPI Narrative Reason for Consultation: Evaluation of dropping blood counts and rectal thickening on imaging HPI Narrative: ROQUE VIVEROS, is a 44 F who presents with dizziness and weakness. This is a female patient admitted night for dizziness and feeling weak. Reports frequent urinary tract infections (UTIs); current hospitalization involves treatment with antibiotics and she is starting to feel a little better. Describes historically low blood pressure; currently on midodrine in the hospital. Denies taking blood pressure medications or blood thinners outside the hospital. Intermittently takes aspirin/ibuprofen/naproxen for leg pain attributed to nerve damage. Occasionally takes [id number] vitamins and iron for perceived energy; has not been told she is anemic by a doctor. Past issues with potassium and magnesium were noted. Family history includes breast cancer and an uncle who of lung cancer (likely a smoker). She has never had a colonoscopy. Reports constipation at times and occasional diarrhea; has tried to monitor for blood in stool and has not noticed heavy amounts or black stools. Prior cholecystectomy with endoscopic retrograde cholangiopancreatography (ERCP) performed before surgery; believes stents were placed and may still be present from three years ago. States a computed tomography (CT) scan showed rectal thickening and ?a little bit in the stomach.? Notes that blood counts had been dropping; currently not dropping but not increasing, described as near a borderline (not at transfusion threshold). Mentions [Unclear] statement about referenced in conversation.] [facility] Medical History MRSA (methicillin resistant staph aureus) culture positive Tobacco use Alcohol use Anxiety and depression Asthma Hx of fracture of pelvis Memo's thyroiditis Home Medications ?Medication ?Instructions ?Recorded ?Last Taken ?Type alprazolam 1 mg tablet 1 mg PO DAILY PRN Anxiety 07/04/21 Unknown History albuterol sulfate 90 mcg/actuation 2 puff inhalation Q4H PRN 03/05/22 Unknown History aerosol inhaler Shortness Of Breath Or Wheezing potassium chloride 20 mEq 20 meq PO DAILY potassium #10 tabs 03/10/22 Unknown Rx tablet,extended release ondansetron 4 mg disintegrating 4 mg PO Q8H PRN PRN Nausea #10 tabs 06/14/24 Unknown Rx tablet ergocalciferol (vitamin D2) 1,250 1,250 mcg PO DAILY deficency 06/25/25 Unknown History mcg (50,000 unit) capsule levothyroxine 50 mcg tablet 50 mcg PO DAILY thyroid 06/25/25 Unknown History Allergy/AdvReac Type Severity Reaction Status Date / Time No Known Allergies Allergy Verified 06/24/25 23:33 Family History Father Heart disease Mother CVA (cerebral vascular accident) Surgical History Status post laparoscopic cholecystectomy History of pelvic surgery Hx of section H/O tubal ligation Social History household members: family and children Smoking Status: Current every day smoker tobacco type: e-cigarettes Electronic Cigarette Use: with nicotine alcohol intake: current alcohol intake frequency: 0-2 drinks per day details: Drinks 1 vodka drink 1-2 ounces up to once q HS. substance use type: does not use ROS Constitutional Constitutional: Denies fatigue, fever(s), poor appetite, weight gain or weight loss Gastrointestinal Gastrointestinal: Denies belching, bloating, change in bowel habits, change in stool character, chewing difficulty, coffee ground emesis, constipation, cramping, diarrhea, dyspepsia, dysphagia, early satiety, excessive flatus, fecal incontinence, heartburn, hematemesis, hematochezia, hemorrhoids, loose stools, melena, nausea, odynophagia, rectal bleeding, tenesmus, vomiting or weight changes Physical Exam Const alert, oriented x3 and no apparent distress Resp normal respiratory effort, no retractions, no use of accessory muscles and clear to auscultation bilaterally Cardio regular rate, regular rhythm, S1 normal heart sound, S2 normal heart sound and no murmurs GI normal to inspection, nondistended, normoactive bowel sounds, soft to palpation and non-distended GI Narrative: intact dressing over laparoscopic sites. mild tenderness with palpation Psych Psych Narrative: flat affect Mood & Affect: anxious Lab / Micro Data 06/27/25 03:35 06/27/25 03:35 Labs: Laboratory Results - last 24 hr 06/27/25 01:15: Vancomycin Trough 26.0 H 06/27/25 03:35: WBC 6.8, RBC 2.49 L, Hgb 7.8 L, Hct 24.6 L, MCV 98.8, MCH 31.3, MCHC 31.7 L, RDW Std Deviation 73.7 H, RDW Coeff of Micheal 20.7 H, Plt Count 235, MPV 9.2, Immature Gran % (Auto) 0.600, Neut % (Auto) 74.3 H, Lymph % (Auto) 17.4 L, [place] % (Auto) 6.4, Eos % (Auto) 0.6, Baso % (Auto) 0.7, Absolute Neuts (auto) 5.1, Absolute Lymphs (auto) 1.19, Nucleated RBC % 0, Differential Comment SCANNED, Platelet Estimate ADEQUATE, Polychromasia 1+, Anisocytosis 2+, Target Cells RARE, Ovalocytes 1+, Sodium 137, Potassium 3.3, Chloride 106, Carbon Dioxide 20.6 L, Anion Gap 10, BUN 9, Creatinine 0.89, Estim Creat Clear Calc 74.77, Est GFR (MDRD) Non-Af 83, BUN/Creatinine Ratio 9.7 L, Glucose 114 H, Calcium 8.0 Micro: Microbiology 06/25/25 01:06 Blood Culture (Wb) - Anticubital Right Blood Culture - Preliminary No growth in 48 hours. 06/25/25 01:10 Blood Culture (Wb) - Anticubital Left Blood Culture - Preliminary No growth in 48 hours. Assessment & Plan Assessment/Plan (1) Anemia: PLAN: Plan Dropping blood counts (near borderline transfusion threshold by report) : Blood counts had been dropping; currently not dropping but not increasing per patient report. Rectal thickening on imaging : CT reportedly shows rectal thickening; patient has never had colonoscopy. - Discuss flexible sigmoidoscopy to evaluate rectal thickening. - Advise nothing by mouth (NPO) after midnight prior to procedure. - Administer enemas as part of preparation for flexible sigmoidoscopy. Low blood pressure (on midodrine in hospital) : Patient reports historically low blood pressure; currently receiving midodrine in hospital. History of biliary stents after ERCP : Patient believes biliary stents placed ~3 years ago may still be present. - Review existing CT scan to assess for presence of biliary stents. - Obtain an X-ray if CT is inconclusive to determine stent presence. - Remove stents if they are confirmed to still be in place. Constipation with occasional diarrhea : Reports intermittent constipation and occasional diarrhea. Frequent urinary tract infections : Reports frequent UTIs; current admission involved antibiotics. Charges/Coding Visit Charges Inpatient E&M: 55919 Init Hosp L3
[2025-06-27] MEDS: Pantoprazole Sodium 40 MG in 0.9% Normal Saline (100mL MB+) 100 ML 300 MG IV ×2 (14:18→20:32)
[2025-06-27 15:09] LABS: Vancomycin, Random Level 15.7 ug/mL (0.0-15.0)
--- NOTE | 2025-06-27 15:24 | PCM.RX.CS ---
Consult Antibiotic Management Pharmacy has been consulted to manage selected antibiotic: Vancomycin Type of Intervention Type of Consult: Follow-up Labs Labs: Sodium 137 mmol/L (133-145) 06/27/25 03:35 Potassium 3.3 mmol/L (3.3-5.1) 06/27/25 03:35 Chloride 106 mmol/L (98-108) 06/27/25 03:35 Carbon Dioxide 20.6 mmol/L (21.0-32.0) L 06/27/25 03:35 Anion Gap 10 (5-15) 06/27/25 03:35 BUN 9 mg/dL (4-19) 06/27/25 03:35 Creatinine 0.89 mg/dL (0.70-1.20) 06/27/25 03:35 Est GFR (MDRD) Non-Af 83 (>60) 06/27/25 03:35 BUN/Creatinine Ratio 9.7 RATIO (10-20) L 06/27/25 03:35 Glucose 114 mg/dL (70-99) H 06/27/25 03:35 Vancomycin Trough 26.0 ug/mL (5.0-15.0) H 06/27/25 01:15 Random Vancomycin 15.7 ug/mL (0.0-15.0) H 06/27/25 14:22 Microbiology Microbiology: Microbiology 06/25/25 01:06 Blood Culture (Wb) - Anticubital Right Blood Culture - Preliminary No growth in 48 hours. 06/25/25 01:10 Blood Culture (Wb) - Anticubital Left Blood Culture - Preliminary No growth in 48 hours. 06/25/25 09:40 Stool Stool Lactoferrin - Final 06/25/25 09:40 Stool Enteric Bacteriology - Final 06/25/25 09:40 Stool Stool Occult Blood (CHINO) - Final Occult Blood Positive 06/25/25 04:50 Nasal Secretion MRSA (PCR) - Final Meth. resistant Staph. aureus 06/25/25 01:12 Mucosa - Nose SARS-CoV-2, Influenza & RSV (PCR) - Final Pharmacy Plan for Drug Dosing Pharmacy Plan for Drug Dosing: VANCOMYCIN LEVEL RECEIVED Current Vancomycin Dose: on hold, previously 1000mg Q8 Number of Doses Received: 6 Vancomycin Level: 15.7 mg/dL Hours Since Last Dose: 20.5 Renal Function: SCr 0.89 mg/dL, CrCl 74 mL/min Renal Function Trend: worsened, SCr has doubled since starting vanco Lab/Micro: blood cx - no growth, urine cx pending, mrsa nasal swab (+) Vancomycin Plan/Comments: 20.5 hour random level is now therapeutic at 15.7 mg/dL (goal 15-20). Will change dose to 1000mg Q12 and get a level prior to 4th dose of new regimen. Pending Level: 06/29/25 @ 0330 Pharmacy Service will continue to monitor and adjust dosing as required.
[2025-06-27] MEDS: Vancomycin HCl 1,000 MG in 0.9% Normal Saline (250mL Bag) 250 ML 250 MG IV (16:33)
[2025-06-28] VITALS (20 sets, daily range): BP systolic 87–112; BP diastolic 48–82; PULSE 77–102; RESP 18–29; TEMP 36.1–37.4; O2SAT 90–100; BMI 29.4
[2025-06-28] MEDS: Vancomycin HCl 1,000 MG in 0.9% Normal Saline (250mL Bag) 250 ML 250 MG IV ×2 (03:31→16:25)
[2025-06-28] MEDS: 0.9% Saline Lock 10 ML Syringe IV ×2 (03:31→09:38)
[2025-06-28 03:45] LABS: Hematocrit 24.8 % (37-47); Hemoglobin 7.7 g/dL (12.0-15.0); Immature Granulocytes Count 0.050 X10^3/uL (0.0-0.0); Mean Corp Hgb Conc 31.0 g/dL (32-36); Mean Corpuscular Volume 101.2 fL (81-99); Mean Platelet Vol. 9.7 fl (6.2-12.0); NRBC Flagged by Analyzer 0 % (0-5); POSITIVE MORPHOLOGY YES; Platelet Count 236 K/mm3 (150-450); RBC Distribution Width CV 21.2 % (11.6-14.6); RBC Distribution Width SD 76.9 fl (35.1-43.9); Red Blood Count 2.45 M/mm3 (4.2-5.4); White Blood Count 6.8 K/mm3 (4.4-11.0)
[2025-06-28 03:47] LABS: Differential Indicated SCAN CRITERIA MET
[2025-06-28 04:06] LABS: Anion Gap 10 (5-15); BUN 10 mg/dL (4-19); BUN/Creat Ratio 8.7 RATIO (10-20); Calcium,Total 8.1 mg/dL (7.6-11.0); Carbon Dioxide 21.1 mmol/L (21.0-32.0); Chloride 110 mmol/L (98-108); Estimated Creatinine Clearance 60.36 ml/min (50-250); Glucose 98 mg/dL (70-99); Potassium 3.7 mmol/L (3.3-5.1)
[2025-06-28 04:20] LABS: Acanthocytes RARE; Anisocytosis 2+; Differential Comment SCANNED; Macrocytosis 1+; Polychromasia 1+; Schistocytes RARE; Tear Drop Cell RARE
[2025-06-28] MEDS: Piperacil/Tazobactam 3.375 GM in 0.9% Normal Saline (50mL MB+) 50 ML IV ×3 (05:57→21:42)
[2025-06-28] MEDS: Nicotine (PBKC) 21 MG Patch TD (09:00)
--- NOTE | 2025-06-28 09:16 | PCM.PN.HOSP ---
Subjective Subjective Resting comfortably, no issues overnight Objective Data Objective Data Vital Signs: Vital Signs Temp Pulse Resp BP Pulse Ox O2 Del Method 98.4 F 88 25 H 92/64 94 Room Air 06/28/25 04:00 06/28/25 07:00 06/28/25 07:00 06/28/25 07:00 06/28/25 07:00 06/28/25 07:00 Oxygen Delivery Method Room Air Weight: 166 lb Body Mass Index (BMI) 29.4 Intake & Output: Intake and Output for Last 24 Hours 06/27/25 06/28/25 06/29/25 03:59 03:59 03:59 Intake Total 3324.73 / 3324.73 2870 / 2870 270 / 270 Output Total 650 / 800 151 / 151 Balance 2674.73 / 2524.73 2719 / 2719 270 / 270 Lab / Micro Data 06/28/25 03:37 06/28/25 03:37 Labs: Laboratory Results - last 24 hr 06/27/25 14:22: Random Vancomycin 15.7 H 06/28/25 03:37: WBC 6.8, RBC 2.45 L, Hgb 7.7 L, Hct 24.8 L, MCV 101.2 H, MCH 31.4, MCHC 31.0 L, RDW Std Deviation 76.9 H, RDW Coeff of Micheal 21.2 H, Plt Count 236, MPV 9.7, Immature Gran % (Auto) 0.700, Neut % (Auto) 72.0 H, Lymph % (Auto) 17.2 L, [place] % (Auto) 8.7, Eos % (Auto) 0.7, Baso % (Auto) 0.7, Absolute Neuts (auto) 4.9, Absolute Lymphs (auto) 1.16, Nucleated RBC % 0, Differential Comment SCANNED, Platelet Estimate ADEQUATE, Polychromasia 1+, Anisocytosis 2+, Macrocytosis 1+, Tear Drop Cells RARE, Ovalocytes 1+, Acanthocytes (Spur) RARE, Schistocytes RARE, Sodium 141, Potassium 3.7, Chloride 110 H, Carbon Dioxide 21.1, Anion Gap 10, BUN 10, Creatinine 1.18, Estim Creat Clear Calc 60.36, Est GFR (MDRD) Non-Af 59 L, BUN/Creatinine Ratio 8.7 L, Glucose 98, Calcium 8.1 Micro: Microbiology 06/25/25 02:15 Urine, Catheterized Urine Culture - Preliminary Gram negative donnell 06/25/25 01:06 Blood Culture (Wb) - Anticubital Right Blood Culture - Preliminary No growth in 48 hours. 06/25/25 01:10 Blood Culture (Wb) - Anticubital Left Blood Culture - Preliminary No growth in 48 hours. 06/25/25 09:40 Stool Stool Lactoferrin - Final 06/25/25 09:40 Stool Enteric Bacteriology - Final 06/25/25 09:40 Stool Stool Occult Blood (CHINO) - Final Occult Blood Positive 06/25/25 04:50 Nasal Secretion MRSA (PCR) - Final Meth. resistant Staph. aureus 06/25/25 01:12 Mucosa - Nose SARS-CoV-2, Influenza & RSV (PCR) - Final Physical Exam Narrative General: Resting, oriented x 3, Cooperative, No apparent distress HEENT: Atraumatic, PERRLA, EOMI, Normocephalic Oral: Moist Mucosa Neck: Supple, No JVD Lungs: Diminished, Normal air movement, No rhonchi, No wheeze, No rales Cardiovascular: Regular rate, Regular Rhythm, Normal S1, Normal S2, No murmurs Abdomen: Soft, Non Tender, Non-Distended, No Hepato-splenomegaly Extremities: No edema, Capillary Refill Less than 3 Seconds Skin: No rashes, No breakdown Neurological: No focal neurological deficits, moves all extremities Psych/Mental Status: Flat Assessment & Plan Assessment/Plan (1) Acute UTI: PLAN: Plan 1. Septic shock secondary to UTI ? Based on her hypotension and her lactic acidosis consistent with sepsis ? She was on Levophed which was discontinued for the last 24 hours, was transition to oral midodrine ? Continue with antibiotics, nasal swab was positive for MRSA, blood cultures were negative ? Concern that alcohol use is also complicating her clinical picture 2. Acute blood loss anemia with a diffuse uniform rectal mural thickening ? Hemoglobin dropped into the sevens ? Continue with PPI ? Stool occult was positive ? Appreciate GIs assistance 3. Alcohol abuse with elevated LFTs ? She did have some hyperbilirubinemia and transaminitis on admission with routine consumption of vodka ? Continue with CIWA protocol as well as thiamine and folic acid 4. Hypothyroidism ? Stable ? Continue with Synthroid 5. Anxiety/depression ? Stable ? Continue with her home medications DVT: SCDs Charges/Coding Visit Charges Inpatient E&M: 69743 Subs Hosp L2
[2025-06-28] MEDS: Lactated Ringers 1,000 ML 15 ML IV (11:32)
--- NOTE | 2025-06-28 12:30 | COLBX_PTH ---
PATIENT: ROQUE VIVEROS LOC: [facility] U#:[id number] AGE/SX: 44/F ROOM: [facility] RE06/25/[address]: Dr. Vasile No DO : 1980 BED: 1 DIS: 07/01/2025 SPEC #: [id number] RECD: 06/28/25 14:50 STATUS: BALDEMAR REQ #: [id number] MICHAEL: 06/28/25 12:[address]: Maury Hagen DEPT: SURGICAL PATHOLOGY RECD BY: Nick Iqbal ENTERED: 06/28/25 15:34 SP TYPE: COLON BX OTHR DR: MD Dr. Ehsna King MD Dr. Autumn L White, MD Dr. Bruce Arthur, MD Dr. Derek Brown, DO Dr. David P Myers, MD Dr. Edward Matheis, MD Dr. Gautam Baskaran, MD Dr. Yordanos Habtegebriel, MD Dr. Hemant Dand, MD Dr. Jose Ochoa, MD Dr. Justin Wong, MD Dr. Kimber Foust, MD Dr. Lamia Aljundi, MD Dr. Marisa Magana, MD Dr. Nicholas F Kotsonis, MD Dr. Prakash Chand, MD Dr. Pritam Ghosh, MD Dr. Pavan Irukulla, MD Dr. Saad Farooqi, MD Dr. Sukhdeep Dhesi, DO Dr. Sujoy Gill, MD Dr. Soleyah Groves, MD Dr. Timothy Fernstrom, MD Dr. Percy Issa Dr., MD Heather Evans, PAYABLE REPRESENTATIVE-C Jackie Strickland, PAYABLE REPRESENTATIVE-C GRIS CARMONA, PAYABLE REPRESENTATIVE-C FLORENCIO Delatorre Tissues: A - Rectum, NOS Procedures: Surgery Specimen Level IV HEADER OPERATION: Flexible sigmoidoscopy with biopsy PRE-OP DIAGNOSIS: Anemia TISSUE SUBMITTED: A- Rectal biopsy MICROSCOPIC DIAGNOSIS A. Rectum, biopsy: * Colonic mucosa with no pathologic change MICROSCOPIC DESCRIPTION Slides are reviewed. GROSS DESCRIPTION A. Received in fixative is one container labeled with the patient's name and designated Rectal biopsy. The specimen consists of two irregular fragments of [place] tissue that measure 0.2 and 0.4 cm. The specimen is totally submitted in one cassette. MO 06/28/2025 CPT:24925
--- NOTE | 2025-06-28 12:57 | PCM.PRE.AN2 ---
ASA Classification* ASA Classification ASA Classification: 3 and E Assessment & Plan Anesthesia* Anesthesia Assessment Anesthesia Assessment: Discussed sedation and/or anesthesia options, risks, benefits, and alternatives with patient/parents/legal guardian/POA. Questions invited. The patient/parents/legal guardian/POA seems to understand and agrees to proceed with anesthesia plan. Reviewed the physical assessment, medical history, allergy history and patient home medications list prior to surgery/procedure/anesthetic and documented any changes. Performed airway and anesthesia risk assessments. Procedural Plan Add'l anesthesia plan details: Checking TSH labs done before results are high. The patient looks good clinically. Likely will need free T3 and T4 to check the thyroid status. I discussed this with the GI doctor. To inform with internal medicine doc and follow-up. Anesthesia Type Anesthesia Type: MAC History Source History Obtained from:: Patient and Chart Anesthesia Focused Assessment* Temperature: 97.9 F Pulse Rate: 83 Blood Pressure: 97/64 Respiratory Rate: 20 Pulse Ox: 100 Oxygen Delivery Method: Room Air Airway Assessment Mouth opens: >3 cm Mallampati Score: II Teeth Condition: Caps/Crowns Neck Range of motion (ROM): Full ROM Labs Anesthesia Preop lab: CBC WBC, (4.4-11.0) 6.8 K/mm3 Today, 03:37 RBC, (4.2-5.4) 2.45 M/mm3 L Today, 03:37 Hgb, (12.0-15.0) 7.7 g/dL L Today, 03:37 Hct, (37-47) 24.8 % L Today, 03:37 Plt Count, (150-450) 236 K/mm3 Today, 03:37 CHEMISTRY Potassium, (3.3-5.1) 3.7 mmol/L Today, 03:37 Sodium, (133-145) 141 mmol/L Today, 03:37 Magnesium, (1.5-2.2) 2.0 mg/dL 06/25/25, 00:09 Phosphorus, (2.7-4.5) 3.0 mg/dL 06/26/25, 04:52 BUN, (4-19) 10 mg/dL Today, 03:37 Creatinine, (0.70-1.20) 1.18 mg/dL Today, 03:37 Glucose, (70-99) 98 mg/dL Today, 03:37 POC Glucose, (74-106) 126 mg/dL H 06/26/25, 06:34 TSH, (0.300-4.200) 10.500 uIU/mL H 06/25/25, 05:44 COAG PT, (11.7-14.9) 13.3 SECONDS 03/08/22, 04:45 Urine Test Negative Negative 12/31/21, 11:04 Pre-Assessment Diagnosis/Proposed Procedure Planned Operative Procedure(s): Sigmoidoscopy Anesthesia History Anesthesia History - service coordinator elderly facility: Anesthesia History - service coordinator elderly facility Hx Hospitalization Any Problems With Anesthesia No 03/06/22 13:09 Cholinesterase deficiency No 03/06/22 13:09 You/Your Family Experience No 03/06/22 13:09 fever (hyperthermia) with Relationship Recent Exposure to Contagious No 03/08/22 07:21 Disease Does patient have nerve No 03/06/22 13:09 stimulator Patient instructed to have device shut off --Does patient have Pacemaker or ICD? When Was Last Pacemaker Check QUESTION #4 FULL TEXT: You/Your Family Experience fever (hyperthermia) with Anesthesia Last Oral Intake Last Oral intake: Last Oral Intake NPO since Meds taken in AM with sips of water? Meds patient instructed to take am of surgery PONV PONV - service coordinator elderly facility: PONV - service coordinator elderly facility Female HX of Motion Sickness HX of N/V After Surgery Non-Smoker Duration of Surgery greater than 60 minutes Number of Risk Factors PONV Score Height & Weight Height & Weight: Anesthesia: Height & Weight Height 5 ft 3 in 06/25/25 09:49 Weight: 75.296 kg 06/28/25 03:30 Body Mass Index (BMI) 29.4 06/28/25 03:30 Respiratory Assessment Respiratory Assessment - service coordinator elderly facility: Respiratory Tract Infection Hx - service coordinator elderly facility Hx Respiratory Tract Infection No 03/06/22 13:09 STOP Sleep Apnea STOP Sleep Apnea - service coordinator elderly facility: STOP Sleep Apnea - service coordinator elderly facility Hx Hypertension No 06/25/25 10:26 Hx Sleep Apnea No 06/25/25 04:35 CPAP BIPAP Do you snore loudly (louder No 06/25/25 04:35 than talking or can be heard Do you often feel tired/ No 06/25/25 04:35 fatigued/ sleepy during daytime? Has anyone observed you stop No 06/25/25 04:35 breathing during sleep? STOP Results Negative 06/25/25 04:35 QUESTION #5 FULL TEXT : Do you snore loudly (louder than talking or can be heard through closed doors)? 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 Specify any problems Hx of Preganancy in last 3 No 06/25/25 04:35 Months Nurse Filling Out Transfusion [email or web address] 06/25/25 04:35 & Questions: Date: 06/25/25 06/25/25 04:35 Time: 04:44 06/25/25 04:35 Patient unable to answer at this time (ie. confused, unrespo /Reproduction History /Reproductive History - service coordinator elderly facility: /Reproductive Hx- service coordinator elderly facility Hx Now Gestational Age (in weeks): EDC: Hx Hx Para Hx Section SAB No 06/24/25 23:32 Does the father of the baby or his family experience fever w Father of the baby Malignant Hypertension history comment Active Medications Active Medications: Current Medications Generic Name Dose Route Start Last Admin Trade Name Freq PRN Reason Stop Dose Admin Acetaminophen 650 mg 06/25/25 04:30 06/27/25 17:36 Acetaminophen 325 Mg Tablet PO 650 mg Q4H PRN PRN Administration Fever, pain 1-05/20 Al Hydroxide/Mg Hydroxide 30 ml 06/25/25 04:30 Mag Hydrox/Al Hydrox/Simeth 30 Ml Udc PO Q6H PRN PRN Gastric Burning Albuterol Sulfate 2.5 mg 06/25/25 04:30 Albuterol 2.5 Mg/3 Ml Vial.Neb. INHALATION Q2H PRN PRN Dyspnea, wheezing Alprazolam 1 mg 06/25/25 04:30 06/27/25 22:49 Alprazolam 0.5 Mg Tablet PO 1 mg DAILY PRN PRN Administration ANXIETY Folic Acid 1 mg 06/25/25 08:00 06/28/25 09:21 Folic Acid 1 Mg Tablet PO Not Given BREAKFAST JESSICA Guaifenesin 10 ml 06/25/25 04:30 Guaifenesin 10 Ml Udc (200mg/10ml) PO Q4H PRN PRN COUGH Piperacillin Sod/Tazobactam 50 mls @ 12.5 mls/hr 06/25/25 06:00 06/28/25 09:59 Sod 3.375 gm/ Sodium Chloride IV Infused Q8 JESSICA Infusion Vancomycin IV-PHARMACY TO DOSE 500 mls @ 250 mls/hr 06/25/25 04:30 1 each/ Sodium Chloride IV X1 PRN Rx to Dose Protocol Sodium Chloride 250 mls @ 15 mls/hr 06/25/25 04:36 IV .[id number] PRN Additional IVPB Infusion Sodium Chloride 250 mls @ 15 mls/hr 06/25/25 04:36 06/27/25 14:32 IV Infused .[id number] PRN Infusion Saline Flush Pantoprazole Sodium 40 mg/ 100 mls @ 300 mls/hr 06/25/25 22:00 06/28/25 11:20 Sodium Chloride IV Not Given Q12 JESSICA Sodium Chloride 250 mls @ 15 mls/hr 06/27/25 04:08 IV .[id number] PRN Saline Flush Sodium Chloride 250 mls @ 15 mls/hr 06/27/25 04:08 IV .[id number] PRN Additional IVPB Infusion Vancomycin HCl 1,000 mg/ 270 mls @ 250 mls/hr 06/27/25 16:00 06/28/25 04:36 Sodium Chloride IV Infused Q12H JESSICA Infusion Lactated Ringer's 1,000 mls @ 15 mls/hr 06/28/25 11:45 06/28/25 11:32 IV 15 mls/hr .Q48H JESSICA Administration Lorazepam 2 mg 06/25/25 04:30 Lorazepam 2 Mg/Ml Syringe IV UD PRN CIWA score >/=15. Protocol Lorazepam 2 mg 06/25/25 04:30 Lorazepam 2 Mg/Ml Syringe IV Q2H PRN PRN CIWA score > 8 but <15 Protocol Lorazepam 2 mg 06/25/25 04:30 Lorazepam 1 Mg Tablet PO UD PRN CIWA score >/=15. Protocol Lorazepam 2 mg 06/25/25 04:30 Lorazepam 1 Mg Tablet PO Q2H PRN PRN CIWA score > 8 but <15 Protocol Melatonin 3 mg 06/25/25 04:30 Melatonin 3 Mg Tablet PO QHS PRN PRN INSOMNIA Midodrine 15 mg 06/25/25 12:00 06/28/25 11:20 Midodrine Hcl 5 Mg Tablet PO Not Given TIDCM JESSICA Multivitamins/Minerals 1 tablet 06/26/25 08:00 06/28/25 09:21 Multivitamins,Ther W-Minerals Tablet PO Not Given BREAKFAST JESSICA Nicotine 21 mg 06/25/25 10:00 06/28/25 09:00 Nicotine (Pbkc) 21 Mg Patch TD 21 mg DAILY JESSICA Administration Ondansetron HCl 4 mg 06/25/25 04:30 06/28/25 09:37 Ondansetron 4 Mg/2 Ml Vial IV 4 mg Q8H PRN PRN Administration NAUSEA/VOMITING Senna/Docusate Sodium 2 tablet 06/25/25 04:30 Senna/Docusate Sodium 1 Tablet PO BID PRN PRN Constipation Sodium Chloride 10 - 40 ml 06/25/25 04:36 06/28/25 09:38 0.9% Saline Lock 10 Ml Syringe IV 10 ml UD PRN Administration SALINE FLUSH Sodium Chloride 10 - 40 ml 06/26/25 04:40 0.9% Saline Lock 10 Ml Syringe IV UD PRN SALINE FLUSH Sodium Chloride 10 - 40 ml 06/27/25 04:08 0.9% Saline Lock 10 Ml Syringe IV UD PRN SALINE FLUSH Thiamine HCl 100 mg 06/25/25 08:00 06/28/25 09:21 Thiamine Hydrochloride 100 Mg Tablet PO Not Given BREAKFAST JESSICA Vancomycin Protocol 1 lab 06/29/25 02:30 Vancomycin Trough/Random Due MC 06/29/25 04:30 DAILY JESSICA PFSH Medical History MRSA (methicillin resistant staph aureus) culture positive Tobacco use Alcohol use Anxiety and depression Asthma Hx of fracture of pelvis Memo's thyroiditis Home Medications ?Medication ?Instructions ?Recorded ?Last Taken ?Type alprazolam 1 mg tablet 1 mg PO DAILY PRN Anxiety 07/04/21 Unknown History albuterol sulfate 90 mcg/actuation 2 puff inhalation Q4H PRN 03/05/22 Unknown History aerosol inhaler Shortness Of Breath Or Wheezing potassium chloride 20 mEq 20 meq PO DAILY potassium #10 tabs 03/10/22 Unknown Rx tablet,extended release ondansetron 4 mg disintegrating 4 mg PO Q8H PRN PRN Nausea #10 tabs 06/14/24 Unknown Rx tablet ergocalciferol (vitamin D2) 1,250 1,250 mcg PO DAILY deficency 06/25/25 Unknown History mcg (50,000 unit) capsule levothyroxine 50 mcg tablet 50 mcg PO DAILY thyroid 06/25/25 Unknown History Allergy/AdvReac Type Severity Reaction Status Date / Time No Known Allergies Allergy Verified 06/24/25 23:33 Family History Father Heart disease Mother CVA (cerebral vascular accident) Surgical History Status post laparoscopic cholecystectomy History of pelvic surgery Hx of section H/O tubal ligation Social History household members: family and children Smoking Status: Current every day smoker tobacco type: e-cigarettes Electronic Cigarette Use: with nicotine alcohol intake: current alcohol intake frequency: 0-2 drinks per day details: Drinks 1 vodka drink 1-2 ounces up to once q HS. substance use type: does not use Review of Systems (Anesthesia) ROS Narrative System reviewed and no additional complaints, except as documented.
--- NOTE | 2025-06-28 13:34 | PCM.POST.ANE ---
Anesthesia: Postop Eval I Current Vital Signs Temperature: 99.3 F Pulse Rate: 79 Blood Pressure: 102/66 Respiratory Rate: 18 Pulse Ox: 97 Oxygen Delivery Method: Room Air Assessment Airway patent: Yes Spontaneous unlabored respirations: Yes Mental status: Awake nausea: No Vomiting: No Anesthesia Complication: No Fluid Hydration Crystalloid volume administer (ml): 400 Total IV fluid infused: 400 Progress Note Anesthesia document: Postop Eval 1 completed: Yes
--- NOTE | 2025-06-28 14:02 | OP.PROVAT_ITS ---
06/28/2025 Karin Bradshaw Re : Flexible Sigmoidoscopy procedure for Taya Stokes Tobias This procedure was performed on Saturday, June 28, 2025. My impressions and recommendations are as follows: Impressions : - Congested mucosa in the rectum. Biopsied. - Stool in the rectum, in the recto-sigmoid colon and in the sigmoid colon. Recommendations : - Use fiber, for example Citrucel, Fibercon, Konsyl or Metamucil. - Repeat flexible sigmoidoscopy because the bowel preparation was poor. My findings are described in the full procedure note, which is enclosed. If I can be of further assistance, please feel free to contact me at . Sincerely, Maury Hagen, 06/28/2025 2:01:15 PM This report has been signed electronically.
--- NOTE | 2025-06-28 14:02 | OP.FLEXSIG_ITS ---
Patient Name: Taya Story Procedure Date: 06/28/2025 1:02 PM Date of : 1980 Age: 44 Procedure: Flexible Sigmoidoscopy Indications: Abnormal CT of the GI tract, Anemia Providers: Maury Hagen DO Medicines: Monitored Anesthesia Care Patient Profile: This is a 44 year old female. Refer to note in patient chart for documentation of history and physical. Last Colonoscopy: none. The patient's first colonoscopy is today. Complications: No immediate complications. Procedure: Pre-Anesthesia Assessment: - Prior to the procedure, a History and Physical was performed, and patient medications and allergies were reviewed. The patient is competent. The risks and benefits of the procedure and the sedation options and risks were discussed with the patient. All questions were answered and informed consent was obtained. Patient identification and proposed procedure were verified by the physician in the pre-procedure area. Mental Status Examination: alert and oriented. Airway Examination: normal oropharyngeal airway and neck mobility. Respiratory Examination: clear to auscultation. CV Examination: normal. Prophylactic Antibiotics: The patient does not require prophylactic antibiotics. Prior Anticoagulants: The patient has taken no anticoagulant or antiplatelet agents except for NSAID medication. ASA Grade Assessment: II - A patient with mild systemic disease. After reviewing the risks and benefits, the patient was deemed in satisfactory condition to undergo the procedure. The anesthesia plan was to use monitored anesthesia care (MAC). Immediately prior to administration of medications, the patient was re-assessed for adequacy to receive sedatives. The heart rate, respiratory rate, oxygen saturations, blood pressure, adequacy of pulmonary ventilation, and response to care were monitored throughout the procedure. The physical status of the patient was re-assessed after the procedure. After obtaining informed consent, the endoscope was passed under direct vision. Throughout the procedure, the patient's blood pressure, pulse, and oxygen saturations were monitored continuously. The colonoscope was introduced through the anus and advanced to the rectosigmoid junction. The flexible sigmoidoscopy was accomplished without difficulty. No bowel preparation was given prior to the procedure. Scope In: 1:19:30 PM Scope Out: 1:21:07 PM Total Procedure Duration Time 0 hours 1 minute 37 seconds Findings: The perianal and digital rectal examinations were normal. An area of mildly congested mucosa was found in the rectum. Biopsies were taken with a cold forceps for histology. Verification of patient identification for the specimen was done. Estimated blood loss was minimal. Stool was found in the rectum, in the recto-sigmoid colon and in the sigmoid colon. Impression: - Congested mucosa in the rectum. Biopsied. - Stool in the rectum, in the recto-sigmoid colon and in the sigmoid colon. Recommendation: - Use fiber, for example Citrucel, Fibercon, Konsyl or Metamucil. - Repeat flexible sigmoidoscopy because the bowel preparation was poor. Procedure Code(s): --- Professional --- 98658, 52, Sigmoidoscopy, flexible; with biopsy, single or multiple CPT copyright 2021 [employer]. All rights reserved. The codes documented in this report are preliminary and upon supply aide review may be revised to meet current compliance requirements. Maury Hagen DO 06/28/2025 2:01:15 PM This report has been signed electronically. Number of Addenda: 0 Note Initiated On: 06/28/2025 1:02 PM
--- NOTE | 2025-06-28 16:23 | PCM.POSTANE2 ---
Anesthesia Postop Eval I Sum Postop Eval Completion status Anesthesia document: Postop Eval 1 completed: Yes Anesthesia Postop Eval I Summary Anesthesia Postop Eval I Summary: Anesthesia Postop Eval I: Assessment Summary Airway patent Yes 06/28/25 13:35 [email or web address] Spontaneous unlabored Yes 06/28/25 13:35 [email or web address] respirations Mental status Awake 06/28/25 13:35 [email or web address] nausea No 06/28/25 13:35 [email or web address] Vomiting No 06/28/25 13:35 [email or web address] Anesthesia Postop Eval I: Fluid Summary Crystalloid volume administer 400 06/28/25 13:35 [email or web address] (ml) Colloids volume administered ( ml) Blood Product volume administered (ml) Total IV fluid infused 400 06/28/25 13:35 [email or web address] Anesthesia Postop Eval I: Summary Notes Anesthesia Complication No 06/28/25 13:35 [email or web address] Anesthesia Complication Comment: Post-operative progress note Anesthesia: Postop Eval II Evaluation Mental status: Awake and Calm Pain Level: 1 nausea: No Vomiting: No Complications Anesthesia Complication: No
[2025-06-28] MEDS: Polyethylene Glycol 3350 17 GM PACKET PO (21:30)
[2025-06-28] MEDS: Pantoprazole Sodium 40 MG in 0.9% Normal Saline (100mL MB+) 100 ML 300 MG IV (21:42)
[2025-06-28] MEDS: 0.9% Normal Saline (250mL Bag) 250 ML 15 ML IV (22:18)
[2025-06-29] VITALS: PULSE 87
[2025-06-29 01:52] VITALS: BP 107/69; PULSE 98; RESP 24; O2SAT 98
[2025-06-29] MEDS: Vancomycin Trough/Random Due 1 LAB MC (02:41)
[2025-06-29 03:10] LABS: Hematocrit 24.1 % (37-47); Hemoglobin 7.7 g/dL (12.0-15.0); Immature Granulocytes Count 0.060 X10^3/uL (0.0-0.0); Mean Corp Hgb Conc 32.0 g/dL (32-36); Mean Corpuscular Volume 100.8 fL (81-99); Mean Platelet Vol. 9.7 fl (6.2-12.0); NRBC Flagged by Analyzer 0 % (0-5); POSITIVE MORPHOLOGY YES; Platelet Count 240 K/mm3 (150-450); RBC Distribution Width CV 20.8 % (11.6-14.6); RBC Distribution Width SD 77.3 fl (35.1-43.9); Red Blood Count 2.39 M/mm3 (4.2-5.4); White Blood Count 6.8 K/mm3 (4.4-11.0)
[2025-06-29 03:25] LABS: Differential Indicated SCAN CRITERIA MET
[2025-06-29 03:29] LABS: Anion Gap 11 (5-15); BUN 11 mg/dL (4-19); BUN/Creat Ratio 11.3 RATIO (10-20); Calcium,Total 8.1 mg/dL (7.6-11.0); Carbon Dioxide 18.8 mmol/L (21.0-32.0); Chloride 112 mmol/L (98-108); Estimated Creatinine Clearance 72.67 ml/min (50-250); Glucose 101 mg/dL (70-99); Potassium 3.4 mmol/L (3.3-5.1); Vancomycin, Trough Level 27.3 ug/mL (5.0-15.0)
--- NOTE | 2025-06-29 03:38 | PCM.RX.CS ---
Consult Antibiotic Management Pharmacy has been consulted to manage selected antibiotic: Vancomycin Type of Intervention Type of Consult: Follow-up Labs Labs: Sodium 141 mmol/L (133-145) 06/29/25 02:55 Potassium 3.4 mmol/L (3.3-5.1) 06/29/25 02:55 Chloride 112 mmol/L (98-108) H 06/29/25 02:55 Carbon Dioxide 18.8 mmol/L (21.0-32.0) L 06/29/25 02:55 Anion Gap 11 (5-15) 06/29/25 02:55 BUN 11 mg/dL (4-19) 06/29/25 02:55 Creatinine 0.98 mg/dL (0.70-1.20) 06/29/25 02:55 Est GFR (MDRD) Non-Af 74 (>60) 06/29/25 02:55 BUN/Creatinine Ratio 11.3 RATIO (10-20) 06/29/25 02:55 Glucose 101 mg/dL (70-99) H 06/29/25 02:55 Vancomycin Trough 27.3 ug/mL (5.0-15.0) H 06/29/25 02:55 Random Vancomycin 15.7 ug/mL (0.0-15.0) H 06/27/25 14:22 Microbiology Microbiology: Microbiology 06/25/25 02:15 Urine, Catheterized Urine Culture - Preliminary Gram negative donnell 06/25/25 01:06 Blood Culture (Wb) - Anticubital Right Blood Culture - Preliminary No growth in 48 hours. 06/25/25 01:10 Blood Culture (Wb) - Anticubital Left Blood Culture - Preliminary No growth in 48 hours. 06/25/25 09:40 Stool Stool Lactoferrin - Final 06/25/25 09:40 Stool Enteric Bacteriology - Final 06/25/25 09:40 Stool Stool Occult Blood (CHINO) - Final Occult Blood Positive 06/25/25 04:50 Nasal Secretion MRSA (PCR) - Final Meth. resistant Staph. aureus 06/25/25 01:12 Mucosa - Nose SARS-CoV-2, Influenza & RSV (PCR) - Final Goal Trough Goal Trough: 15-20 mcg/mL Pharmacy Plan for Drug Dosing Pharmacy Plan for Drug Dosing: Pharmacy Service will continue to monitor and adjust dosing as required. TROUGH 27.3 @ 10.5 HOURS. HOLD DOSE AND DRAW RANDOM LEVEL @ 1700 Follow-Up Labs Follow-Up Labs: Trough: Vancomycin Date/Time Labs Ordered Labs to be done on [date and time ordered]: 06/29 @ 1700
[2025-06-29 03:49] LABS: Anisocytosis 1+; Polychromasia RARE; Schistocytes RARE
[2025-06-29 03:51] LABS: Target Cells RARE
[2025-06-29 04:00] VITALS: BP 88/48; PULSE 90; PULSE 98; RESP 24; O2SAT 98
[2025-06-29] MEDS: 0.9% Saline Lock 10 ML Syringe IV ×2 (04:19→20:56)
[2025-06-29 04:38] VITALS: BMI 30.9
[2025-06-29] MEDS: Piperacil/Tazobactam 3.375 GM in 0.9% Normal Saline (50mL MB+) 50 ML IV ×3 (05:53→21:34)
[2025-06-29] MEDS: Thiamine Hydrochloride 100 MG Tablet PO (08:06)
[2025-06-29] MEDS: Nicotine (PBKC) 21 MG Patch TD (09:32)
[2025-06-29] MEDS: Pantoprazole Sodium 40 MG in 0.9% Normal Saline (100mL MB+) 100 ML 300 MG IV ×2 (09:33→20:56)
[2025-06-29] MEDS: Polyethylene Glycol 3350 17 GM PACKET PO ×2 (09:34→21:02)
--- NOTE | 2025-06-29 09:39 | CASEMGMT ---
Rx for OP Therapy signed by the hospitalist. FAUZIA CM to the pt's room to discuss DC planning. Pt states that she still plans to DC home once medically ready and is still wanting to pursue OP therapy at . Pt plans to call [facility] to schedule her own appt and is aware to bring the Rx to [facility]. Pt denies further questions, concerns, or needs at this time.
[2025-06-29 09:42] VITALS: BP 102/71; PULSE 90; RESP 20; TEMP 37.1; O2SAT 97
[2025-06-29 12:37] VITALS: BP 100/65; PULSE 88; RESP 21; TEMP 37.1; O2SAT 94
--- NOTE | 2025-06-29 18:28 | PCM.PN.HOSP ---
Reason for Visit Chief Complaint: Weight loss, bloated sensation, fatigue, malaise Subjective Subjective Patient was seen and examined today, she told nursing that she is not to undergo a colonoscopy or an EGD, she is aware that we do not have a reason for her anemia at this time. Her iron level is low but her ferritin level is normal, B12 level was normal. Patient's blood pressure today at 1237 was 100/65. Patient is still on midodrine. Objective Data Objective Data Vital Signs: Vital Signs Temp Pulse Resp BP Pulse Ox O2 Del Method O2 Flow Rate 98.7 F 88 21 H 100/65 94 Room Air 4 06/29/25 12:37 06/29/25 12:37 06/29/25 12:37 06/29/25 12:37 06/29/25 12:37 06/29/25 12:37 06/28/25 19:45 Oxygen Flow Rate (L/min) 4 Oxygen Delivery Method Room Air Weight: 79.095 kg Body Mass Index (BMI) 30.9 Intake & Output: Intake and Output for Last 24 Hours 06/27/25 06/28/25 06/29/25 23:59 23:59 23:59 Intake Total 3120 / 3120 1202.33 / 1442.33 1640 / 1640 Output Total 151 / 151 3 / 3 Balance 2969 / 2969 1199.33 / 1439.33 1640 / 1640 Lab / Micro Data 06/30/25 06:08 06/29/25 02:55 Labs: Laboratory Results - last 24 hr 06/29/25 02:55: WBC 6.8, RBC 2.39 L, Hgb 7.7 L, Hct 24.1 L, MCV 100.8 H, MCH 32.2 H, MCHC 32.0, RDW Std Deviation 77.3 H, RDW Coeff of Micheal 20.8 H, Plt Count 240, MPV 9.7, Immature Gran % (Auto) 0.900, Neut % (Auto) 72.0 H, Lymph % (Auto) 16.2 L, [place] % (Auto) 8.8, Eos % (Auto) 1.2, Baso % (Auto) 0.9, Absolute Neuts (auto) 4.9, Absolute Lymphs (auto) 1.10, Nucleated RBC % 0, Differential Comment , Plt Morphology Comment LARGE, Polychromasia RARE, Anisocytosis 1+, Target Cells RARE, Ovalocytes RARE, Schistocytes RARE, Sodium 141, Potassium 3.4, Chloride 112 H, Carbon Dioxide 18.8 L, Anion Gap 11, BUN 11, Creatinine 0.98, Estim Creat Clear Calc 72.67, Est GFR (MDRD) Non-Af 74, BUN/Creatinine Ratio 11.3, Glucose 101 H, Calcium 8.1, Vancomycin Trough 27.3 H Micro: Microbiology 06/25/25 02:15 Urine, Catheterized Urine Culture - Final Escherichia coli Providencia alcalifaciens 06/25/25 01:06 Blood Culture (Wb) - Anticubital Right Blood Culture - Preliminary No growth in 48 hours. 06/25/25 01:10 Blood Culture (Wb) - Anticubital Left Blood Culture - Preliminary No growth in 48 hours. 06/25/25 09:40 Stool Stool Lactoferrin - Final 06/25/25 09:40 Stool Enteric Bacteriology - Final 06/25/25 09:40 Stool Stool Occult Blood (CHINO) - Final Occult Blood Positive 06/25/25 04:50 Nasal Secretion MRSA (PCR) - Final Meth. resistant Staph. aureus 06/25/25 01:12 Mucosa - Nose SARS-CoV-2, Influenza & RSV (PCR) - Final Physical Exam Const alert, oriented x3, no apparent distress and healthy appearing General Appearance: cooperative, well kempt and well developed Orientation / Consciousness: awake, oriented to person, oriented to place and oriented to time HEENT normocephalic, head/scalp atraumatic and moist oral mucous membranes Eyes PERRL, EOMs intact bilaterally and conjunctivae normal Neck supple, no JVD, thyroid normal and no carotid bruits General: trachea midline Resp normal respiratory effort, no retractions, no use of accessory muscles and clear to auscultation bilaterally Auscultation: Negative for rales, rhonchi or wheezes Cardio regular rate, regular rhythm, S1 normal heart sound, S2 normal heart sound, no murmurs, no rub and no gallops GI normal to inspection, nondistended, normoactive bowel sounds, soft to palpation, non-tender and non-distended Extremity no clubbing, cyanosis or edema Skin no rashes or lesions noted General Skin Exam: no breakdown Neuro oriented x3, CN's II-XII intact bilaterally, moves all extremities, no focal motor deficits and no sensory deficits noted Sensorium / Orientation: awake and alert Speech: speech normal Psych affect normal Assessment & Plan Assessment/Plan (1) Septic shock: PLAN: Plan 1. Septic shock secondary to acute cystitis-continue on present antibiotics as well as midodrine for blood pressure support #2 acute blood loss anemia secondary to suspected gastrointestinal hemorrhage-site unknown, patient refuses to undergo any more testing such as a colonoscopy or an EGD, she is aware of the risk of not having these procedures. Patient CBC will be rechecked tomorrow #3 hypothyroidism-patient is currently not on any thyroid replacement, she will need to resume Synthroid as an outpatient #4 history of anxiety/depression-patient denies taking any antidepressant at the present time, she does take Xanax for anxiety Total clinical time spent by myself addressing the patient's medical issues, reviewing all of her data, and collaborating with patient's care team: 35 minutes Charges/Coding Visit Charges Inpatient E&M: 31113 Subs Hosp L2
[2025-06-29 20:47] VITALS: BP 107/69; PULSE 85; RESP 18; TEMP 36.8; O2SAT 99
[2025-06-29 23:28] VITALS: BMI 30.8
[2025-06-30 03:30] VITALS: BP 102/66; PULSE 87; RESP 18; TEMP 35.9; O2SAT 96
[2025-06-30] MEDS: Piperacil/Tazobactam 3.375 GM in 0.9% Normal Saline (50mL MB+) 50 ML IV ×2 (05:44→15:27)
[2025-06-30 06:42] LABS: Hematocrit 24.7 % (37-47); Hemoglobin 7.9 g/dL (12.0-15.0)
[2025-06-30 09:01] VITALS: BP 100/65; PULSE 88; RESP 18; TEMP 36.6; O2SAT 98
[2025-06-30] MEDS: Pantoprazole Sodium 40 MG in 0.9% Normal Saline (100mL MB+) 100 ML 300 MG IV (10:46)
[2025-06-30] MEDS: Nicotine (PBKC) 21 MG Patch TD (11:28)
[2025-06-30] MEDS: Thiamine Hydrochloride 100 MG Tablet PO (12:51)
--- NOTE | 2025-06-30 12:59 | DCINST_ITS ---
Discharge Instructions DC O2, CPAP, BIPAP needs Home O2 Discharge instructions: No Dressing / Incision Discharge Activity: Return to Normal Activity Weight Bearing Status: Full weight bearing Follow Up Care Test Results: Test results from this visit will be discussed in further detail at your follow- up appointment, if applicable. Discharge Plan Admission Admit Date/Time: 06/25/25 03:20 Primary Reason for Your Visit: Septic shock, chronic anemia Attending Provider: Vasile No Primary Care Provider: GRIS CARMONA Consulting Providers: Mildred Liu; Jose Raul Quiroz; Maury Hagen; Larisa Hernandez; Jackie Strickland; Shruthi Tovar; Juaquin Song; Ehsan Arevalo; Nima Serrano; Asif Sam; Mike Blas; Shanell Strong; Rakesh Fritz; Caprice Amos; Turner Martinez; Elisa Calderon; Roby Mcneal; Ishmael Talbot; Susannah Parker; Grey Corcoran; Sunny Wood; Reece Muñoz; Minerva Montes De Oca; Radha Solomon; Edin Michele; Celine Conklin; Alonso Richard; Vasile Hampton; Pauline Tafoya; Francisca Reeves; Babatunde Love; Miroslava Gómez; Pauline Jalloh; Oh Guerra; Leander Kennedy; Samm Inman; Toña Marx; Tacho Stephens; Oscar Valdez; Bibi Perez; Chen Ramos; Debbie Olvera; Susanne Irby; Braulio Biswas; Channing Sargent; Don Haji; Mera Stinson; Percy Mora; Oh Mora Discharge Orders/Prescriptions Prescriptions: New levothyroxine [Synthroid] 75 mcg tablet 75 mcg PO DAILY Qty: 30 0RF midodrine 10 mg tablet 10 mg PO TID Qty: 90 0RF Rx Instructions: do not give last dose of day after 6PM or within 4 hrs of bedtime polyethylene glycol 3350 [Miralax] 17 gram/dose powder 17 g PO BID Qty: 238 0RF Continued alprazolam 1 mg tablet 1 mg PO DAILY PRN (Reason: Anxiety) albuterol sulfate 90 mcg/actuation HFA aerosol inhaler 2 puff INHALATION Q4H PRN (Reason: Shortness Of Breath Or Wheezing) Patient Comments: INHALE 2 PUFFS INSTRUCTED EVERY 4 HOURS NEEDED FOR WHEEZING/SHORTNESS OF BREATH. ondansetron 4 mg tablet,disintegrating 4 mg PO Q8H PRN PRN (Reason: Nausea) Qty: 10 0RF ergocalciferol (vitamin D2) 1,250 mcg (50,000 unit) capsule 1,250 mcg PO DAILY Discontinued potassium chloride 20 mEq tablet extended release 20 meq PO DAILY Qty: 10 0RF levothyroxine 50 mcg tablet 50 mcg PO DAILY Referrals / Follow Up: GRIS CARMONA NP-C [Primary Care Provider, Internal Medicine] - See Referral Note Referral Note: In 2 weeks Disposition Disposition (needs filled in before D/C Order can be placed): Home, Self Care
--- NOTE | 2025-06-30 13:23 | DS.PCM_ITS ---
Providers Date of Admission: 06/25/25 Date of Discharge: 06/30/25 Primary Care Physician: GRIS CARMONA, CRISIS MANAGER-C Consultations 06/25/25 04:30 Consult: [facility] / Pulmonary Medicine Routine Consulting Provider: Intensivists/Pulmonary Med Reason for Consult: SIRS, UTI EMERGENT Consult: No Notified: Yes Date Notified: 06/25/25 Time Notified: 05:04 Method of Notification: Text 06/27/25 07:04 Consult: Gastroenterology Routine Consulting Provider: [facility] Reason for Consult: GI bleed with anemia EMERGENT Consult: No Notified: Yes Date Notified: 06/27/25 Time Notified: 10:45 Method of Notification: Text Reason For Visit: SIRS, UTI Diagnosis Discharge Diagnosis (1) Acute UTI: Status: Acute Code(s): N39.0 - Urinary tract infection, site not specified Plan 1. Septic shock secondary to acute cystitis-continue on present antibiotics as well as midodrine for blood pressure support #2 acute blood loss anemia secondary to suspected gastrointestinal hemorrhage- site unknown, patient refuses to undergo any more testing such as a colonoscopy or an EGD, she is aware of the risk of not having these procedures. Patient CBC will be rechecked tomorrow #3 hypothyroidism-patient is currently not on any thyroid replacement, she will need to resume Synthroid as an outpatient #4 history of anxiety/depression-patient denies taking any antidepressant at the present time, she does take Xanax for anxiety #5 fluid overload with bilateral pleural effusions Medications at Discharge Home Medications alprazolam 1 mg tablet 1 mg PO DAILY PRN Anxiety 07/04/21 albuterol sulfate 90 mcg/actuation aerosol inhaler 2 puff inhalation Q4H PRN Shortness Of Breath Or Wheezing 03/05/22 ondansetron 4 mg disintegrating tablet 4 mg PO Q8H PRN PRN Nausea #10 tabs 06/14/24 ergocalciferol (vitamin D2) 1,250 mcg (50,000 unit) capsule 1,250 mcg PO DAILY deficency 06/25/25 ferrous sulfate 325 mg (65 mg iron) tablet 325 mg PO BID #60 tabs 06/30/25 levothyroxine 75 mcg tablet (Synthroid) 75 mcg PO DAILY #30 tabs 06/30/25 midodrine 10 mg tablet 10 mg PO TID #90 tabs 06/30/25 polyethylene glycol 3350 17 gram/dose oral powder (Miralax) 17 g PO BID #238 grams 06/30/25 Hospital Course Operations None Procedures 2-D Echocardiogram, Thoracentesis and - (Flexible sigmoidoscopy) Summary of Care Provided Minutes Spent on Discharge: 31 Hospital Course: This 45-year-old white female was seen in the emergency room at [facility] with complaints of generalized weakness and unexplained weight loss. Workup in the emergency room included a CT of the abdomen and pelvis which showed hepatomegaly and diffuse uniform rectal mural thickening which was concerning for proctitis. Labs obtained included a CBC which was abnormal for hemoglobin of 9, chemistry profile showed a sodium of 129 and a phosphorus of 1.8. Patient's glucose was 219 and her lactic acid was 5.8. Urinalysis showed +2 bacteria 0 RBCs and 0-5 WBCs. Urine nitrite was positive. Patient's alkaline phosphatase was elevated at 207, her bilirubin was 1.86, and her AST was 118. There was concerns for sepsis from a urinary tract infection the patient was admitted to ICU and placed on antibiotics. Patient was seen in consultation by critical care and gastroenterology, she was given IV fluids and ultimately was placed on pressors which were weaned off and patient was started on midodrine. Patient underwent a flexible sigmoidoscopy which showed congested mucosa in the rectum, there was noted to be stool in the rectum, in the rectosigmoid colon, in the sigmoid colon. It was recommended that the sigmoidoscopy be repeated because of bowel preparation was poor, patient was given laxatives and her pressure stabilized. Patient was transferred to PCU for further care, she refused to undergo any more testing such as a an EGD or colonoscopy, her hemoglobin was ultimately stable and she did not require a blood transfusion. Patient did complain of shortness of breath and a chest x- ray was obtained which showed right basilar airspace opacity with concerns for pneumonia, patient's clinical presentation however did not suggest pneumonia. Patient underwent a CTA of the chest which showed bilateral pleural effusions right worse than the left, this was felt to be secondary to fluid overload and patient underwent a thoracentesis with removal of transudative fluid. Echocardiogram was obtained which showed a normal EF. On 07/01/2025, patient was seen and examined: On examination she appeared in good health and spirits, she does not appear to be in any distress. Vital signs as documented. Skin warm and dry and without overt rashes. Neck without JVD, thyroid appears normal, trachea is midline, neck is supple. Lungs clear, normal air movement was noted. Heart exam notable for regular rhythm, normal sounds and absence of murmurs, rubs or gallops. Abdomen unremarkable and without evidence of organomegaly, masses, or abdominal aortic enlargement, bowel sounds are present in all 4 quadrants, no abdominal tenderness was noted. Extremities nonedematous, no cyanosis was noted, no clubbing was noted. Neuro: Cranial nerves II through XII are grossly intact, no focal motor deficits were noted, sensation to light touch and pinprick is intact, motor exam 5/5 throughout. Psych: Patient is alert and oriented x3, she does not appear anxious or depressed, she does not appear agitated. Patient was discharged in stable condition on 07/01/2025. Weight / BMI Weight Weight: 78.4 kg Body Mass Index (BMI) 30.6 ABG / Lab / Microbiology Data 06/30/25 06:08 06/29/25 02:55 Laboratory: Laboratory Results - last 24 hr 06/30/25 06:08: Hgb 7.9 L, Hct 24.7 L Microbiology: Microbiology 07/01/25 11:16 Fluid - Pleural (Lung) Gram Stain - Final 06/25/25 01:06 Blood Culture (Wb) - Anticubital Right Blood Culture - Final No growth in 5 days. 06/25/25 01:10 Blood Culture (Wb) - Anticubital Left Blood Culture - Final No growth in 5 days. 06/25/25 02:15 Urine, Catheterized Urine Culture - Final Escherichia coli Providencia alcalifaciens 06/25/25 09:40 Stool Stool Lactoferrin - Final 06/25/25 09:40 Stool Enteric Bacteriology - Final 06/25/25 09:40 Stool Stool Occult Blood (CHINO) - Final Occult Blood Positive 06/25/25 04:50 Nasal Secretion MRSA (PCR) - Final Meth. resistant Staph. aureus 06/25/25 01:12 Mucosa - Nose SARS-CoV-2, Influenza & RSV (PCR) - Final D/C Instructions Weight Bearing Status: Full weight bearing DC O2, CPAP, BIPAP Needs Home O2 Discharge instructions: No Meaningful Use Info Meaningful Use Meaningful Use Diagnoses (Choose all that apply): None applicable Discharge Plan Admission Admit Date/Time: 06/25/25 03:20 Primary Reason for Your Visit: Septic shock, acute anemia, iron deficiency Attending Provider: Vasile No Primary Care Provider: GRIS CARMONA Consulting Providers: Mildred Liu; Jose Raul Quiroz; Maury Hagen; Larisa Hernandez; Jackie Strickland; Shruthi Tovar; Juaquin Song; Ehsan Arevalo; Nima Serrano; Asif Sam; Mike Blas; Shanell Strong; Rakesh Fritz; Caprice Amos; Turner Martinez; Elisa Calderon; Roby Mcneal; Ishmael Talbot; Susannah Parker; Grey Corcoran; Sunny Wood; Reece Muñoz; Minerva Lou; Radha Solomon; Edin Michele; Celine Conklin; Alosno Richard; Vasile Hampton; Pauline Tafoya; Francisca Reeves; Babatunde Love; Miroslava Gómez; Pauline Jalloh; Oh Guerra; Leander Kennedy; Samm Inman; oTña Vanegas; AngeloTacho; Courtney,Oscar; Bibi Perez; Chen Ramos; Debbie Olvera; Susanne Irby; Braulio Biswas; Arie,Channing; Don Haji; Mera Stinson; Percy Mora; Oh Mora Discharge Orders/Prescriptions Prescriptions: New levothyroxine [Synthroid] 75 mcg tablet 75 mcg PO DAILY Qty: 30 0RF midodrine 10 mg tablet 10 mg PO TID Qty: 90 0RF Rx Instructions: do not give last dose of day after 6PM or within 4 hrs of bedtime polyethylene glycol 3350 [Miralax] 17 gram/dose powder 17 g PO BID Qty: 238 0RF ferrous sulfate 325 mg (65 mg iron) tablet 325 mg PO BID Qty: 60 0RF Continued alprazolam 1 mg tablet 1 mg PO DAILY PRN (Reason: Anxiety) albuterol sulfate 90 mcg/actuation HFA aerosol inhaler 2 puff INHALATION Q4H PRN (Reason: Shortness Of Breath Or Wheezing) Patient Comments: INHALE 2 PUFFS INSTRUCTED EVERY 4 HOURS NEEDED FOR WHEEZING/SHORTNESS OF BREATH. ondansetron 4 mg tablet,disintegrating 4 mg PO Q8H PRN PRN (Reason: Nausea) Qty: 10 0RF ergocalciferol (vitamin D2) 1,250 mcg (50,000 unit) capsule 1,250 mcg PO DAILY Discontinued potassium chloride 20 mEq tablet extended release 20 meq PO DAILY Qty: 10 0RF levothyroxine 50 mcg tablet 50 mcg PO DAILY Referrals / Follow Up: GRIS CARMONA CRISIS MANAGER-C [Primary Care Provider, Internal Medicine] - See Referral Note Referral Note: In 1 week, you will need your CBC rechecked (blood count) Disposition Disposition (needs filled in before D/C Order can be placed): Home, Self Care Charges/Coding Visit Charges Inpatient E&M: 80050 Disch Hosp >30min
[2025-06-30 14:21] VITALS: BP 101/67; PULSE 87; RESP 18; TEMP 36.7; O2SAT 96
[2025-06-30] MEDS: Albuterol 2.5 MG/3 ML VIAL.NEB. INHALATION ×2 (14:22→20:58)
[2025-06-30 14:25] VITALS: PULSE 88; RESP 18
--- NOTE | 2025-06-30 15:16 | PHA.DC.COU.R ---
Pharmacy [facility] has performed discharge medication counseling for this patient. The patient was counseled on the following discharge medications and changes in medications for homegoing review. - Ferrous sulfate 325 mg tablet, Levothyroxine 75 mcg tablet, Midodrine 10 mg tablet, Miralax 17 gram powder. The Reason for Use, instructions for use, and potential side effects were reviewed for all new medications. The patient's questions regarding all of their medications were answered. The patient was able to verbally demonstrate an understanding of their discharge medications. Medications at Discharge Home Medications alprazolam 1 mg tablet 1 mg PO DAILY PRN Anxiety 07/04/21 albuterol sulfate 90 mcg/actuation aerosol inhaler 2 puff inhalation Q4H PRN Shortness Of Breath Or Wheezing 03/05/22 ondansetron 4 mg disintegrating tablet 4 mg PO Q8H PRN PRN Nausea #10 tabs 06/14/24 ergocalciferol (vitamin D2) 1,250 mcg (50,000 unit) capsule 1,250 mcg PO DAILY deficency 06/25/25 ferrous sulfate 325 mg (65 mg iron) tablet 325 mg PO BID #60 tabs 06/30/25 levothyroxine 75 mcg tablet (Synthroid) 75 mcg PO DAILY #30 tabs 06/30/25 midodrine 10 mg tablet 10 mg PO TID #90 tabs 06/30/25 polyethylene glycol 3350 17 gram/dose oral powder (Miralax) 17 g PO BID #238 grams 06/30/25
--- NOTE | 2025-06-30 16:35 | CASEMGMT ---
Social Work- SW received notice from pt nurse that pt mother had called in expressing concerns regarding living situation. Pt mother reported that pt does not have heat or water and is living in a foreclosed home. Pt mother expressed concerns regarding substance abuse. Pt reports that she does live in a home with no heat or water; reporting that she uses space heaters and 5 gallon jugs of water. SW educated to dangers of using space heaters for primary heat source. Pt reports that she is in process of moving in with oldest son and plans to go there tonight at d/c. Pt reports that she would be interested in housing information. Pt reports that her son or dtr will transport pt at d/c and cites them as good supports. Pt also has a friend that she lives with. Pt reports that person is kind of a support. Pt denies that she drinks daily and denies that the friend living with her has a substance use problem. Pt defined her drinking as occasionally. SW inquired into willingness to connect with [facility] or other substance use supports. Pt denies the need. SW inquired into mental health. Pt reports that she has severe anxiety that impacts her ability to drive, leave the home, and make phone calls. Pt reports that she had an appointment at [facility] last week for counseling and psych and missed the appointment. SW provided education on anxiety, coping skills, and interconnectedness with substance use for some people. Pt reports that she does plan to schedule with [facility] again for psych. Pt reports that she plans to have blood work completed next week and will see if she can be seen by psych at that time. Pt again denies need for substance use supports. Pt reports no safety concerns and no food scarcity concerns. SW provided printables for [facility], housing, homeless shelters, counseling/mental health, [facility], [facility], [facility] transportation, [facility], [facility], and [facility]. SW discussed case management at [facility]; pt declined to allow SW to schedule an initial visit despite expressing interest in case management services. Pt denies any other needs at this time. Bedside nurse updated. JAKUB Barajas
--- NOTE | 2025-06-30 17:40 | RAD_ITS ---
PROCEDURE: CHEST 1 VIEW (PORTABLE) 06/30/2025 REASON FOR EXAM: SOB, WHEEZING TECHNIQUE: Frontal view of the chest. COMPARISON: 04/02/2022 FINDINGS: Lungs/Pleura: Shallow inspiration. Hazy opacity in the right lower lung zone may represent pneumonia. No pneumothorax or sizable pleural effusion. Heart/Mediastinum: Within normal limits. Bones/Soft tissues: Unremarkable. RAD/Chest 1 View (Portable) IMPRESSION: Suboptimal inspiration. Right basilar airspace opacity, possibly pneumonia. Reading Location: [id number]
[2025-06-30 19:18] LABS: D-Dimer Quantitative (DVT/PE) 2.91 FEU/ug/m (0.27-0.49)
[2025-06-30 19:40] LABS: Pro- Brain NATRIURETIC PEPTIDE 3569 pg/mL (<=450)
--- NOTE | 2025-06-30 19:46 | PCM.HOSP.N ---
Hospitalist Note Patient was set up to be discharged home today and complained of shortness of breath on ambulation, she was walked on room air, her oxygen saturation was 96%. At rest her O2 sat was 99% on room air, chest x-ray did not show signs of congestive heart failure, D-dimer however was elevated and I made the decision to order a CTA of the chest which is pending at the time of this examination.
--- NOTE | 2025-06-30 20:11 | CT_ITS ---
PROCEDURE: CTA CHEST W/WO CONTRAST 06/30/2025 REASON FOR EXAM: ELEVATED D-DIMER TECHNIQUE: Procedure Code: [id number] Modality: CT Procedure: CTA CHEST W/WO CONTRAST Multiplanar Sagittal and Coronal images were obtained. CONTRAST: 100 mL of Isovue 370 One or more dose reduction techniques were used (e.g., Automated exposure control, adjustment of the mA and/or kV according to patient size, use of iterative reconstruction technique). RADIATION DOSE SUMMARY: DLP: 425 mGycm COMPARISON: None FINDINGS: PULMONARY ARTERIES: No evidence of pulmonary embolism. LUNGS AND PLEURA: No definite pulmonary edema. No mass or nodule. Moderate bilateral pleural effusions. There is subjacent densities likely reflective of compressive atelectasis however multifocal pneumonia is not excluded. No pneumothorax. MEDIASTINUM: No lymphadenopathy or mass. The heart shows no acute findings. The aorta shows no acute findings. The pulmonary trunk, and branches of the vessels in the mediastinum are within normal limits. SUPRACLAVICULAR AND AXILLARY: No abnormalities seen in these regions. No mass or significant lymphadenopathy. UPPER ABDOMEN: Trace perihepatic ascites. BONES AND SOFT TISSUES: The ribs are unremarkable. The visualized spine shows no significant acute findings. No focal bony mass lesions noted. The subcutaneous soft tissues are unremarkable. CT/CTA Chest W/WO Contrast IMPRESSION: No acute pulmonary emboli. Moderate bilateral pleural effusions. There is subjacent densities likely refle ctive of compressive atelectasis however multifocal pneumonia is not excluded. Reading Location: [facility]
--- NOTE | 2025-06-30 20:32 | US_ITS ---
PROCEDURE: THORACENTESIS W US N/A REASON FOR EXAM: Right pleural EFFUSION TECHNIQUE: Therapeutic and diagnostic THORACENTESIS W US COMPARISON: CT examination 06/30/2025. FINDINGS: Procedure: Following informed consent, an using standard sterile technique, an ultrasound- guided right thoracentesis was performed via a posterior approach. 2% lidocaine local anesthesia was followed by placement of a 5 Thai Yueh catheter into the right pleural fluid collection. Approximately 950 mL clear yellow fluid was successfully removed, a portion sent to the laboratory for evaluation.. No complication was encountered, the patient left the department in good condition without significant complaint. US/Thoracentesis W US IMPRESSION: Successful ultrasound-guided therapeutic and diagnostic right thoracentesis. L aboratory results pending. Reading Location: [place] [address]
[2025-06-30 20:58] VITALS: PULSE 101; RESP 32
[2025-06-30 21:34] VITALS: BP 94/56; PULSE 107; RESP 20; TEMP 37.3; O2SAT 97
[2025-07-01] VITALS (9 sets, daily range): BP systolic 88–120; BP diastolic 56–70; PULSE 90–104; RESP 18–20; TEMP 36.3–37.9; O2SAT 93–99; BMI 30.6
--- NOTE | 2025-07-01 05:55 | ECHOD_ITS ---
Reason For Study Reason For Study: DYSPNEA Procedure This was a 2D Doppler, Color Flow transthoracic echocardiogram. Exam performed portable in patient room. Left Ventricle Normal LV size. Normal left ventricular thickness. The estimated ejection fraction is 55 %. Normal diastololic function. Right Ventricle Normal size and thickness. Normal systolic function. Atria The left and right atria are normal. Mitral Valve Mild (1+) mitral valve insufficiency. Tricuspid Valve Mild (1+) tricuspid valve insufficiency. Normal pulmonary artery pressure. Aortic Valve The aortic valve is not well visualized. Great Vessels Normal sized aortic root. Pericardium/Pleural No pericardial effusion. MMode/2D Measurements & Calculations LVIDd: 4.1 cm IVSd: 0.92 cm Ao root diam: 2.4 cm LVIDs: 3.0 cm LVPWd: 1.1 cm RVDd: 3.4 cm FS: 27.7 % LAV(MOD-bp): 39.3 ml LVAd ap4: 25.9 cm2 SV(MOD-sp4): 51.9 ml LAV(MOD-bp) Indexed: 21.5 ml/m2 LVLd ap4: 7.4 cm SI(MOD-sp4): 28.5 ml/m2 LAV(MOD-sp2): 30.2 ml EDV(MOD-sp4): 72.1 ml LAV(MOD-sp4): 42.0 ml EDV(sp4-el): 76.5 ml LVAs ap4: 12.2 cm2 LVLs ap4: 6.1 cm ESV(MOD-sp4): 20.2 ml ESV(sp4-el): 20.7 ml EF(MOD-sp4): 72.0 % EF(sp4-el): 72.9 % SV(sp4-el): 55.7 ml LA dimension(2D): 3.5 cm LA A4 area: 18.2 cm2 RA A4 area: 13.7 cm2 Time Measurements MV dec time: 0.21 sec Doppler Measurements & Calculations MV E max anjum: 94.4 cm/sec Lat Peak E' Anjum: 14.2 cm/sec Med Peak E' Anjum: 13.6 cm/sec MV A max anjum: 88.9 cm/sec E/E' lat: 6.6 E/E' med: 7.0 MV E/A: 1.1 Ao V2 max: 123.6 cm/sec LV V1 max: 97.3 cm/sec MV dec slope: 445.7 cm/sec2 Ao max P.1 mmHg LV V1 max P.8 mmHg Ao V2 mean: 78.8 cm/sec LV V1 mean P.0 mmHg Ao mean P.0 mmHg LV V1 mean: 64.9 cm/sec Ao V2 VTI: 23.4 cm LV V1 VTI: 18.0 cm AV (velocity ratio): 0.77 PA V2 max: 68.8 cm/sec TR max anjum: 252.8 cm/sec TR max P.6 mmHg ECHO/Echo Complete Interpretation Summary Normal left ventricular size and function Estimated LVEF 55% Normal right ventricular size and function Normal diastolic LV function Mild mitral regurgitation Mild tricuspid regurgitation with normal right-sided pressures Ordering Physician: Vasile No Referring Physician: GRIS CARMONA Performed By: Mckenna Valdovinos RCS
[2025-07-01 07:01] LABS: LDH 175 U/L (84-246)
[2025-07-01] MEDS: 0.9% Saline Lock 10 ML Syringe IV (08:52)
[2025-07-01] MEDS: Furosemide 20 MG/2 ML VIAL IV (08:52)
[2025-07-01] MEDS: Nicotine (PBKC) 21 MG Patch TD (08:53)
[2025-07-01] MEDS: Thiamine Hydrochloride 100 MG Tablet PO (10:45)
[2025-07-01] MEDS: Lidocaine 2% (20 ml mdv) 20 ML Vial INFILT (11:13)
--- NOTE | 2025-07-01 11:16 | FLU_PTH ---
PATIENT: ROQUE VIVEROS LOC: [facility] U#:[id number] AGE/SX: 44/F ROOM: [facility] RE06/25/[address]: Dr. Vasile No DO : 1980 BED: 1 DIS: 07/01/2025 SPEC #: [id number] RECD: 07/01/25 11:33 STATUS: SOUT REQ #: [id number] MICHAEL: 07/01/25 11:[address]: Vasile No DEPT: CYTOLOGY RECD BY: Nick Iqbal ENTERED: 07/01/25 13:40 SP TYPE: Fluid OTHR DR: MD Dr. Ehsan King MD Dr. Autumn L White, MD Dr. Bruce Arthur, MD Dr. Derek Brown, DO Dr. David P Myers, MD Dr. Edward Matheis, MD Dr. Gautam Baskaran, MD Dr. Yordanos Habtegebriel, MD Dr. Hemant Dand, MD Dr. Jose Ochoa, MD Dr. Justin Wong, MD Dr. Kimber Foust, MD Dr. Lamia Aljundi, MD Dr. Marisa Magana, MD Dr. Nicholas F Kotsonis, MD Dr. Prakash Chand, MD Dr. Pritam Ghosh, MD Dr. Pavan Irukulla, MD Dr. Rahsaan Friend, MD Dr. Oscar Tabares Dr., MD Dr. Chen Hooper Dr., MD Dr. Timothy Fernstrom, DO MD Dr. Percy Whiting MD Heather Evans, MECHATRONICS TECHNICIAN-C Jackie Strickland, MECHATRONICS TECHNICIAN-C GRIS CARMONA, FLORENCIO Harris Tissues: A - Pleural fluid, NOS Procedures: Special Stain Group II Surgery Specimen Level IV Cytospin Fluid HEADER OPERATION: Ultrasound guided thoracentesis PRE-OP DIAGNOSIS: Pleural effusion, right TISSUE SUBMITTED: A- Thoracentesis fluid for cytology DIAGNOSIS CYTOLOGY A. Right pleural effusion, thoracentesis (cytospin, cellblock): - No malignant cells identified. CYTOLOGY STUDY Slides are reviewed. CYTOLOGY GROSS A. Received is 100 ml of cloudy-yellow fluid labeled with the patient's name and and designated per the requisition as Thoracentesis fluid. Submitted for cytology and cell block preparation. Mr 07/01/2025 CPT: 70812,09060
[2025-07-01 11:37] LABS: Cytology, Body Fluid / CSF SEE PATHOLOGY REPORT
[2025-07-01 11:53] LABS: Body Fluid Mononuclear WBC # 0.125 10^3/uL; Body Fluid Mononuclear WBC % 96.2 %; Body Fluid Polynuclear WBC # 0.005 10^3/uL; Body Fluid Polynuclear WBC % 3.8 %; White Blood Count/Body Fluid 0.130 10^3/uL
[2025-07-01 11:58] LABS: Auto B Fluid Analyzer BKGD Ct COUNTS W/IN LIMITS (W/IN LIMITS)
[2025-07-01 11:59] LABS: Appearance/Body Fluid CLEAR; Color/Body Fluid YELLOW; Source- Body Fluid PLEURAL FLUID
[2025-07-01 12:08] LABS: Red Cell Count/Body Fluid 105 /mm3
[2025-07-01 12:52] LABS: Glucose, Body Fluid 103 mg/dL (Not Establ.)
[2025-07-01 13:07] LABS: Neutrophil (Segs) 3 %
[2025-07-01 16:05] LABS: Pathologist Comment/Body Fluid Reviewed
== END 2025-07-01 18:51 | disposition home or self-care (01) | DRG 720 ==
LOC: ED 23:56 → ICU 06-25 03:45 → PCU 06-29 18:30
PROVIDERS: Family Medicine; Internal Medicine; Internal Medicine Gastroenterology; Internal Medicine Pulmonary Disease; Admitting Provider Family Medicine; Emergency Provider Specialist/Technologist Athletic Trainer; PCP Nurse Practitioner; Visit Provider Internal Medicine
PROC: 0DJD8ZZ Inspection of Lower Intestinal Tract, Via Natural or Artificial Opening Endoscopic (ICD-10-PCS; CPT 45330; principal; 2025-06-28 12:25)
DX: A41.9 Sepsis, unspecified organism (principal); R65.21 Severe sepsis with septic shock; J90 Pleural effusion, not elsewhere classified; K92.2 Gastrointestinal hemorrhage, unspecified; E87.20 Acidosis, unspecified; D62 Acute posthemorrhagic anemia; R16.0 Hepatomegaly, not elsewhere classified; F10.10 Alcohol abuse, uncomplicated; E06.3 Autoimmune thyroiditis; J45.909 Unspecified asthma, uncomplicated; F32.A Depression, unspecified; K76.0 Fatty (change of) liver, not elsewhere classified; R63.4 Abnormal weight loss; F17.290 Nicotine dependence, other tobacco product, uncomplicated; F41.9 Anxiety disorder, unspecified; R19.4 Change in bowel habit; E87.1 Hypo-osmolality and hyponatremia; I95.9 Hypotension, unspecified; K62.89 Other specified diseases of anus and rectum; E87.70 Fluid overload, unspecified; R74.01 Elevation of levels of liver transaminase levels; N30.00 Acute cystitis without hematuria; R73.9 Hyperglycemia, unspecified; Z79.890 Hormone replacement therapy; Z59.11 Inadequate housing environmental temperature; Z59.12 Inadequate housing utilities; Z79.899 Other long term (current) drug therapy; Z68.25 Body mass index [BMI] 25.0-25.9, adult; R06.02 Shortness of breath
CPT/HCPCS: 32555; 36415; 71045; 71275; 74177; 80048; 80053; 80202; 81001; 82040; 82274; 82607; 82728; 82803; 82945; 82962; 83036; 83540; 83550; 83605; 83615; 83630; 83690; 83735; 83880; 84100; 84132; 84157; 84439; 84443; 84484; 84703; 85014; 85018; 85025; 85379; 87040; 87070; 87075; 87077; 87086; 87088; 87186; 87205; 87506; 87631; 87641; 88108; 88305; 88313; 89050; 93005; 93306; 94640; 94668; 94762; 97162; 97165; 97530; 97802; 97803; 99285; 99406; P9047; Q9967; A4216; J1938; J2405